=== PATIENT | male | born 1955 | race Caucasian/White ===

== ENCOUNTER → 2018-01-10 10:25 | Outpatient (CLI) | payer OTHER, SELFPAY ==
--- NOTE | 2018-01-10 13:04 | PCM.CR.HP2 ---
CR - History & Physical - General Arrival date:: 01/10/18 Arrival time:: 13:06 Date of Referral:: 12/30/17 Date of CR Evaluation:: 01/10/18 Referring Physician: Dr. Jarvis Richardson-Cardiology [facility] Primary Diagnosis: AVR 11/12/2017 - History of Present Cardiac Event Onset Date: Enter Onset Date of cardiac illnesses in Comment field below Heart valve replacement or repair:: Yes - 11/12/2017 Type of Symptoms:: Shortness of breath over time and some ankle swelling. Were there any complications?: none - Medications Home Medications: Ambulatory Orders Medication Instructions Recorded Aspirin [Aspirin, Baby] 81 mg PO DAILY@0800 01/10/18 Ergocalciferol [Vitamin D] 50,000 unit PO Q7D 01/10/18 Lisinopril [Zestril] 5 mg PO 01/10/18 Metoprolol Tartrate [Lopressor 25 mg PO BID 01/10/18 (Beta Mukul)] Simvastatin [Zocor] 20 mg PO QHS 01/10/18 - Allergies Allergies/Adverse Reactions: Allergies No Known Drug Allergies Allergy (Verified 01/10/18 13:18) Other - Sleep Disorder Evaluation Hx of Sleep Apnea: Yes Do you snore loudly (louder than talking or can be heard through closed doors)?: Yes - uses CPAP machine nightly adjustable generally runs around 4cm H2O History of Hypertension (for STOP score): Yes Advanced Directives - Advanced Directives Power of Small Business Director: Yes Living Will: Yes Advance Directives Information Provided: No Advance Directives on File: No DNR Order?:: No - MOLST See MOLST form: No Past Medical History - Past Medical Illness Medical History: Past Medical History (Last Updated 01/10/18 @ 13:12 by Sergio Roger, BRICKMASON SUPERVISOR, EDGE BANDER HAND, BS) Aortic stenosis with bicuspid valve Q23.0, Q23.1 Benign neoplasm of colon, unspecified D12.6 Essential hypertension I10 Obesity, unspecified E66.9 Other and unspecified hyperlipidemia E78.5 Peripheral neuropathy G62.9 Personal history of colonic polyps Z86.010 Sleep apnea, unspecified G47.30 Vitamin D deficiency, unspecified E55.9 - Past Surgical History Surgical History: cataract, - - colonoscopy w/or w/o brush spec, excis tendon sheath lesn hand/finger, intial inguinal hernia repair, right meniscus repair, right foot surgery, septoplasy. - Family History Summary Family History: Family History (Last Updated 01/10/18 @ 13:20 by Sergio Roger, BRICKMASON SUPERVISOR, EDGE BANDER HAND, BS) Other father had valve replacement surgery mother had hypertension Social History - Smoking History Smoking Status: Never smoker Hx Tobacco Use: No Hx Smoking Exposure: No - Alcohol Use Alcohol Usage: No - Substance Abuse Hx Substance Use: No - Occupation Occupation (List type of work in comments):: Employed Hours worked per day:: 8 Returned to work on:: 11/29/17 - slowly progressed back to work starting working from home. - Hobbies, Recreation, Social Activities Recreational Activities: I am able to engage in most, but not all activities - except for heavy lifting Social Environment - Status Marital Status: - Current Living Arrangements Living Environment:: Spouse - Children How many children do you have?: 3 Do any of your children live nearby?: Yes - 2 in [facility] - Safety Do you feel safe in your surroundings?: Yes - Assistance Do you need any assistance at home?: none Review of Systems - Review of Systems Hints: Right click = Denies (Slash). Left click = Reports (Coden) Review of Present Symptoms: Reports: Shortness of Breath with Exertion - sometimes but not frequent, Appetite - Normal - not having familiar cravings, some foods dont taste as well., Sleep - Normal - more difficulty falling asleep or staying asleep at night even with CPAP. Denies: Shortness of Breath at Rest, Wound Healing, Dizziness/Lightheadedness, Fatigue, Appetite - Special Diet - Pain Is Patient Pain Free?: No Pain Location: none Pain Level: 0/10 Risk Factor Assessment - Chief Complaint Chief Complaint: Patient presents to cardiac reahbilitation today following recent AVR surgical procedure at the [facility] Main [place] in November 2017. - Vital Signs Temperature: 98.7 F Respiratory Rate: 16 Pulse Ox: 95 Blood Pressure: 118/68 Nailbeds:: pink - Pulse Pulse Rate: 60 Pulse Rhythm: Regular - Hypertension How long have you been treated?: plus 10 years Blood Pressure Sitting - Left Arm: 118/68 - Blood Cholesterol/Lipids Total Cholesterol (mg/dL) Goal = less than 200 mg/dL: 152 HDL Cholesterol (mg/dL) Goal = less than 40 mg/dL: 49 LDL Cholesterol (mg/dL) Goal = less than 70 mg/dL: 90 Triglycerides (mg/dL) Goal = less than 150 mg/dL: 66 - Diabetes Nutrition Referral for Diabetes: No - Obesity Height: 6 ft Weight:: 295 lb Weight in Pounds: 295.0 lbs Body Mass Index (BMI): 40.0 Nutritional Referral for Obesity: Yes - Physical Inactivity Physical Inactivity: Recreational activity - walking 45 min per day 6 days per week in the mornings - Risk Stratification Risk Guidelines: Lowest Risk: Risk Factor for Smoking, Risk Factor for Dyslipidemia, Risk Factor for Diabetes, Risk Factor for Hypertension, Risk Factor for Sedentary Lifestyle, Risk Factor for Depression, Highest Risk: Risk Factor for Obesity - For Smoking Smoking Risk Guidelines: Smoking Low Risk: None or quit greater than 6 months ago. Smoking Moderate Risk: Smoker or quit 6 months or less ago. Smoking High Risk: Smoker - For Dyslipidemia Dyslipidemia Risk Guidelines: Low Risk: Moderate Risk: High Risk: 15-25% fat 25.1-29% fat >/= 30% fat. <7% sat fat 7-9% sat fat >9% sat fat. <150 mg chol 150-299 mg chol >/= 300 mg chol. LDL <100 LDL 100-129 LDL >/= 130. Chol/HDL ratio <5.0 Chol/HDL ratio 5.0-6.0 Chol/HDL ratio >6.0. Triglycerides <100 Triglycerides 100-149 Triglycerides >/= 150 - For Diabetes Mellitus Diabetes Risk Guidelines: Diabetes Low Risk: HgA1c <6.5% and/or FBG <120. Diabetes Moderate Risk: HgA1c 6.6-7.9% and/or FBG 120-180. Diabetes High Risk: HgA1c >/= 8% and/or FBG >180 - For Obesity/Overweight Obesity/Overweight Risk Guidelines: Obesity Low Risk: BMI <25.0. Obesity Moderate Risk: BMI 25-29.9. Obesity High Risk: BMI >/= 30.0 - For Hypertension Hypertension Risk Guidelines: Hypertension Low Risk: Systolic <120 and Diastolic <80. Hypertension Moderate Risk: Systolic 120-139 and Diastolic 80-89. Hypertension High Risk: Systolic >/= 140 and Diastolic >/= 90 - For Sedentary Lifestyle Sedentary Lifestyle Risk Guidelines: Sedentary Lifestyle Low Risk: >/= 1,500 kcal/week. Sedentary Lifestyle Moderate Risk: 700-1,499 kcal/week. Sedentary Lifestyle High Risk: < 700 kcal/week - For Depression Depression Risk Guidelines: Depression Low Risk: Not clinically depressed. Depression Moderate Risk: Mildly depressed. Depression High Risk: Clinically depressed - Family History Family History: Family History (Last Updated 01/10/18 @ 13:20 by Sergio Roger, BRICKMASON SUPERVISOR, EDGE BANDER HAND, BS) Other father had valve replacement surgery mother had hypertension Motivation - Motivation to Participate On a scale of 1 to 10, how prepared are you to commit to attending program?: 9 What do you see as barriers to successfully being able to complete the program?: scheduling around woprk meetings What do you see as the benefits of succesfully completing the program? In other words, what do you hope to get out of participating in the program?: increased fitness and education Are there issues you are dealing with that will interfere with completing the program?: none Do you have a spouse or signficant other, family or friends who will help support you to complete the program?: yes
--- NOTE | 2018-01-10 13:14 | CR.ITP_ITS ---
General Information - General Information Admitting Diagnosis: Aortic stenosis, AVR done 11/12/2017 - Education/Goals Barriers to Learning: Vision Impairment Individual Counseling: Initial Assessment: High Blood Pressure, Overweight/ Obesity, Hypertension Cardiac Rehabilitation Goals: 1. Maintain the individual as the primary focus of care. 2. To improve the patient's quality of life. 3. Identification of cardiac risk factors and provide cardiac risk factor management. 4. Enhance the psychosocial status of the patient. 5. Reconditioning enough to allow the patient to resume customary activities. 6. Control symptoms of cardiac disease Scale for measuring improvement of personal goals: Enter appropriate number in Comments. 2 = Unchanged. 3 = Slightly Better. 4 = Moderate Improvement. 5 = Met my Goal Personal Goals: Initial Assessment: Improve energy level, Improve knowledge of cardiac disease, Improve muscle strength and endurance, Improve diet and eating habits (eat healthier), Control risk factors (learn risk factor modification) Exercise - Initial Assessment - Visit Date of Eval: 01/10/18 - Stages of Change Stages of Change:: Action - Exercise Prescription Mode:: Treadmill, Rower, Airdyne, NuStep Angina with exercise?: No Target Heart Rate:: 119-127 - Hypertension Do any of the following apply?: Yes Resting Blood Pressure:: 108/62 - Intervention Home Exercise/Activity Goal:: Moderate Exercise 30 min/day x 5 days/wk - Education Goals:: Warm-up, RPE ROOSEVELT Scale, S/S, Safe Exercise, Self-Monitoring Nutrition - Initial Assessment - Program Goals Nutrition Program Goals: LDL <70. Total Cholesterol <200. HDL >45. Triglycerides <150. HgbA1C <7%. BMI <25 - Visit Date of Assessment:: 01/10/18 - Stages of Change Stages of Change:: Action - Diabetes Diabetes:: No Do you monitor your blood sugar at home?: No - Weight Management Height: 6 ft Weight:: 295 lb - Intervention Referral to dietitian:: Yes Will attend diet classes:: Yes - Structure weight loss. - Education Gave educational materials for:: Healthy eating Tobacco - Initial Assessment - Program Goals Tobacco Program Goals: Complete smoking cessation. Attend education classes. 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 Using a valid screening tool, maximizes coping skills. Positive support system - Stages of Change Stages of Change:: Action - Psychosocial Test Tool Used:: HANDS Depression Questionnaire - Intervention PS - Interventions: Yes Attend Stress Management Classes, No Referral to Mental Health, No Referral to [facility] Case Management, No Referral to Physician, No Uses Stress Management Skills - Education Gave educational materials for:: Coping techniques, Signs & symptoms of depression, Stress management, Relaxation techniques - Patient/Program Goal Preventative Medication(s):: Aspirin, ANN inhibitor, Clopidogrel, Beta lisa, Statin/lipid - Assistive Devices Assistive Devices:: None Fall Risk Assessed:: Yes Patient Health Questionnaire Initial Assessment 1. Little interest or pleasure in doing things: Not at all 2. Feeling down, depressed, or hopeless: Not at all 3. Trouble falling or staying asleep, or sleeping too much: Several days 4. Feeling tired or having little energy: Several days 5. Poor appetite or overeating: Several days 6. Feeling bad about yourself -- or that you are a failure or have let yourself or your family down: Not at all 7. Trouble concentrating on things, such as reading the newspaper or watching television: Not at all 8. Moving or speaking so slowly that other people could have noticed. Or the opposite - being so fidgety or restless that you have been moving around a lot more than usual: Not at all 9. Thoughts that you would be better off , or of hurting yourself in some way: Not at all How difficult have these problems made it for you to do your work, take care of things at home, or get along with other people?: Not difficult at all Total Score: 3 ELVIN-Q SV Test - Statements CAD is a disease of the arteries in the heart: False Examples of risk factors for heart disease: True Angina is chest pain or discomfort: True The benefits of resistance training include: True Eating more meat and dairy products: False Anti-platelet medications such as aspirin are important: True The only effective way to manage stress: False An exercise warm-up slowly increases heart rate: True Prepared, processed foods usually have high sodium: True Depression is common after a heart attack: True The statin medications lower cholesterol: True To control blood pressure, lower the amount of sodium: True If someone gets chest discomfort during walking: False Transfats are partially hydrogenated vegetable oils: I Don't Know Sleep apnea that is not treated increases the risk: False To control cholesterol, one should become a vegetarian: False Someone knows if he/she is exercising at the right level: True Diabetes cannot be prevented with exercise & health eating: False Stress is a large risk for heart attack: True A diet that can help lower blood pressure is rich in: True - Total Score Total Correct Responses: 19 Self-Efficacy Initial Assessment We would like to know how confident you are in doing certain activities. Please select your confidence level for:: Select your confidence level for the following using the scale 1-10 where 1 is not at all confident and 10 is totally confident. Your score is the average of all 6 responses. Fatigue: How confident are you that you can keep the fatigue caused by your disease from interfering with the things you want to do? Select Number: 10 Physical Discomfort or Pain: How confident are you that you can keep the physical discomfort or pain of your disease from interfering with the things you want to do? Select Number: 10 Emotional Distress: How confident are you that you can keep the emotional distress caused by your disease from interfering with the things you want to do? Select Number: 10 Other Symptoms or Health Problems: How confident are you that you can keep other symptoms or health problems from interfering with the things you want to do? Select Number: 9 Different Tasks and Activities: How confident are you that you can do the different tasks and activities needed to manage your health condition so as to reduce your need to see a doctor? Select Number: 9 Medication: How confident are you that you can do things other than just taking medication to reduce how much your illness affects your everyday life? Select Number: 8 Total Score:: 9 Nutrition Survey - Nutrition Survey Instructions Scoring Instructions: Scoring is as follows: Yes = 1 points. No = 0 point. Patient score that is >/=12 is considered to be at potential nutritional risk and could benefit from a referral to a registered dietitian. - Nutrition Survey Initial Have you lost >10 lbs over the past 2 months without trying?: No Are you following a special diet at home for diabetes, low fat, or low salt?: No Are you interested in meeting with a dietitian for help understanding your diet? : Yes Do you eat less than 3 meals a day?: No Do you eat fatty meats (mosley, sausage, ribs, etc), fried foods, desserts, large amounts of salad dressings, margarine, butter, or cheese most days?: No Do you have food allergies? [Enter types in comment field]: No Do you eat in restaurants more than 3 times a week?: Yes Do you season food with salt, seasoning salt, or garlic salt?: Yes Do you used canned, boxed, frozen meals, or soups, seasoning packets?: No Total Score:: 3
--- NOTE | 2018-01-10 13:14 | CR.HP_ITS ---
CR - History & Physical - General Arrival date:: 01/10/18 Arrival time:: 13:06 Date of Referral:: 12/30/17 Date of CR Evaluation:: 01/10/18 Referring Physician: Dr. Jarvis Richardson-Cardiology [facility] Primary Diagnosis: AVR 11/12/2017 - History of Present Cardiac Event Onset Date: Enter Onset Date of cardiac illnesses in Comment field below Heart valve replacement or repair:: Yes - 11/12/2017 Type of Symptoms:: Shortness of breath over time and some ankle swelling. Were there any complications?: none - Medications Home Medications: Ambulatory Orders Medication Instructions Recorded Aspirin [Aspirin, Baby] 81 mg PO DAILY@0800 01/10/18 Ergocalciferol [Vitamin D] 50,000 unit PO Q7D 01/10/18 Lisinopril [Zestril] 5 mg PO 01/10/18 Metoprolol Tartrate [Lopressor 25 mg PO BID 01/10/18 (Beta Mukul)] Simvastatin [Zocor] 20 mg PO QHS 01/10/18 - Allergies Allergies/Adverse Reactions: Allergies No Known Drug Allergies Allergy (Verified 01/10/18 13:18) Other - Sleep Disorder Evaluation Hx of Sleep Apnea: Yes Do you snore loudly (louder than talking or can be heard through closed doors)? : Yes - uses CPAP machine nightly adjustable generally runs around 4cm H2O History of Hypertension (for STOP score): Yes Advanced Directives - Advanced Directives Power of Director Of Aviation: Yes Living Will: Yes Advance Directives Information Provided: No Advance Directives on File: No DNR Order?:: No - MOLST See MOLST form: No Past Medical History - Past Medical Illness Medical History: Past Medical History (Last Updated 01/10/18 @ 13:12 by Sergio Roger, HYDRO SPRAYER OPERATOR, MACHINE JOINER CEMENTER, BS) Aortic stenosis with bicuspid valve Q23.0, Q23.1 Benign neoplasm of colon, unspecified D12.6 Essential hypertension I10 Obesity, unspecified E66.9 Other and unspecified hyperlipidemia E78.5 Peripheral neuropathy G62.9 Personal history of colonic polyps Z86.010 Sleep apnea, unspecified G47.30 Vitamin D deficiency, unspecified E55.9 - Past Surgical History Surgical History: cataract, - - colonoscopy w/or w/o brush spec, excis tendon sheath lesn hand/finger, intial inguinal hernia repair, right meniscus repair, right foot surgery, septoplasy. - Family History Summary Family History: Family History (Last Updated 01/10/18 @ 13:20 by Sergio Roger, HYDRO SPRAYER OPERATOR, MACHINE JOINER CEMENTER, BS) Other father had valve replacement surgery mother had hypertension Social History - Smoking History Smoking Status: Never smoker Hx Tobacco Use: No Hx Smoking Exposure: No - Alcohol Use Alcohol Usage: No - Substance Abuse Hx Substance Use: No - Occupation Occupation (List type of work in comments):: Employed Hours worked per day:: 8 Returned to work on:: 11/29/17 - slowly progressed back to work starting working from home. - Hobbies, Recreation, Social Activities Recreational Activities: I am able to engage in most, but not all activities - except for heavy lifting Social Environment - Status Marital Status: - Current Living Arrangements Living Environment:: Spouse - Children How many children do you have?: 3 Do any of your children live nearby?: Yes - 2 in [facility] - Safety Do you feel safe in your surroundings?: Yes - Assistance Do you need any assistance at home?: none Review of Systems - Review of Systems Hints: Right click = Denies (Slash). Left click = Reports ([place]) Review of Present Symptoms: Reports: Shortness of Breath with Exertion - sometimes but not frequent, Appetite - Normal - not having familiar cravings, some foods dont taste as well., Sleep - Normal - more difficulty falling asleep or staying asleep at night even with CPAP. Denies: Shortness of Breath at Rest , Wound Healing, Dizziness/Lightheadedness, Fatigue, Appetite - Special Diet - Pain Is Patient Pain Free?: No Pain Location: none Pain Level: 0/10 Risk Factor Assessment - Chief Complaint Chief Complaint: Patient presents to cardiac reahbilitation today following recent AVR surgical procedure at the [facility] Main [place] in November 2017. - Vital Signs Temperature: 98.7 F Respiratory Rate: 16 Pulse Ox: 95 Blood Pressure: 118/68 Nailbeds:: pink - Pulse Pulse Rate: 60 Pulse Rhythm: Regular - Hypertension How long have you been treated?: plus 10 years Blood Pressure Sitting - Left Arm: 118/68 - Blood Cholesterol/Lipids Total Cholesterol (mg/dL) Goal = less than 200 mg/dL: 152 HDL Cholesterol (mg/dL) Goal = less than 40 mg/dL: 49 LDL Cholesterol (mg/dL) Goal = less than 70 mg/dL: 90 Triglycerides (mg/dL) Goal = less than 150 mg/dL: 66 - Diabetes Nutrition Referral for Diabetes: No - Obesity Height: 6 ft Weight:: 295 lb Weight in Pounds: 295.0 lbs Body Mass Index (BMI): 40.0 Nutritional Referral for Obesity: Yes - Physical Inactivity Physical Inactivity: Recreational activity - walking 45 min per day 6 days per week in the mornings - Risk Stratification Risk Guidelines: Lowest Risk: Risk Factor for Smoking, Risk Factor for Dyslipidemia, Risk Factor for Diabetes, Risk Factor for Hypertension, Risk Factor for Sedentary Lifestyle, Risk Factor for Depression, Highest Risk: Risk Factor for Obesity - For Smoking Smoking Risk Guidelines: Smoking Low Risk: None or quit greater than 6 months ago. Smoking Moderate Risk: Smoker or quit 6 months or less ago. Smoking High Risk: Smoker - For Dyslipidemia Dyslipidemia Risk Guidelines: Low Risk: Moderate Risk: High Risk: 15-25% fat 25.1-29% fat >/= 30% fat. <7% sat fat 7-9% sat fat >9% sat fat. <150 mg chol 150-299 mg chol >/= 300 mg chol. LDL <100 LDL 100-129 LDL >/= 130. Chol/HDL ratio <5.0 Chol/HDL ratio 5.0-6.0 Chol/HDL ratio >6.0. Triglycerides <100 Triglycerides 100-149 Triglycerides >/= 150 - For Diabetes Mellitus Diabetes Risk Guidelines: Diabetes Low Risk: HgA1c <6.5% and/or FBG <120. Diabetes Moderate Risk: HgA1c 6.6-7.9% and/or FBG 120-180. Diabetes High Risk: HgA1c >/= 8% and/or FBG >180 - For Obesity/Overweight Obesity/Overweight Risk Guidelines: Obesity Low Risk: BMI <25.0. Obesity Moderate Risk: BMI 25-29.9. Obesity High Risk: BMI >/= 30.0 - For Hypertension Hypertension Risk Guidelines: Hypertension Low Risk: Systolic <120 and Diastolic <80. Hypertension Moderate Risk: Systolic 120-139 and Diastolic 80-89. Hypertension High Risk: Systolic >/= 140 and Diastolic >/= 90 - For Sedentary Lifestyle Sedentary Lifestyle Risk Guidelines: Sedentary Lifestyle Low Risk: >/= 1 ,500 kcal/week. Sedentary Lifestyle Moderate Risk: 700-1,499 kcal/week. Sedentary Lifestyle High Risk: < 700 kcal/week - For Depression Depression Risk Guidelines: Depression Low Risk: Not clinically depressed. Depression Moderate Risk: Mildly depressed. Depression High Risk: Clinically depressed - Family History Family History: Family History (Last Updated 01/10/18 @ 13:20 by Sergio Roger, HYDRO SPRAYER OPERATOR, MACHINE JOINER CEMENTER, BS) Other father had valve replacement surgery mother had hypertension Motivation - Motivation to Participate On a scale of 1 to 10, how prepared are you to commit to attending program?: 9 What do you see as barriers to successfully being able to complete the program? : scheduling around woprk meetings What do you see as the benefits of succesfully completing the program? In other words, what do you hope to get out of participating in the program?: increased fitness and education Are there issues you are dealing with that will interfere with completing the program?: none Do you have a spouse or signficant other, family or friends who will help support you to complete the program?: yes
[2018-01-10 13:31] VITALS: BP 118/68; PULSE 60; RESP 16; TEMP 37.1; O2SAT 95; BMI 40.0
[2018-01-10 14:19] VITALS: BP 108/62
== END ==
DX: I35.0 Nonrheumatic aortic (valve) stenosis (principal); Z95.2 Presence of prosthetic heart valve

== ENCOUNTER 2018-02-07 08:00 | Outpatient (RCR) | payer OTHER, SELFPAY ==
[2018-02-02 13:28] VITALS: BP 128/86; BP 152/90
--- NOTE | 2018-02-02 13:29 | CR.ITP_ITS ---
Exercise - 30-day Assessment - Visit Date of Eval: 02/02/18 Session #:: 8 - Stages of Change Stages of Change:: Action - Exercise Prescription Mode:: Treadmill, Rower, Airdyne, NuStep Frequency (x/week): 3 Duration:: 30 METs - Progression: 0.5-1 MET as tolerated: 5 Target Heart Rate:: 127-135 - Hypertension Resting Blood Pressure:: 128/86 Peak Exercise Blood Pressure:: 152/90 Medication Changes:: No - Intervention Home Exercise/Activity Goal:: Moderate Exercise 30 min/day x 5 days/wk - Education Goals:: Warm-up, RPE ROOSEVELT Scale, S/S, Safe Exercise, Self-Monitoring - Exercise Program Goals Exercise Program Goals: Aerobic Activity >30 min Nutrition - Initial Assessment - Program Goals Nutrition Program Goals: LDL <70. Total Cholesterol <200. HDL >45. Triglycerides <150. HgbA1C <7%. BMI <25 - Diabetes Do you monitor your blood sugar at home?: No Nutrition - 30-Day Assessment - Program Goals Nutrition Program Goals: LDL <70. Total Cholesterol <200. HDL >45. Triglycerides <150. HgbA1C <7%. BMI <25 - Visit Date of Eval: 02/02/18 - Stages of Change Stages of Change:: Action - Lipids Has the patient seen the dietitian?: No - Diabetes Diabetes:: No - Weight Management Weight:: 292 lb - down 3 pounds - Intervention Referral to dietitian:: No Referral to Diabetic Clinic:: No Will attend diet classes:: Yes - Education Attended class for:: Healthy eating Tobacco - Initial Assessment - Program Goals Tobacco Program Goals: Complete smoking cessation. Attend education classes. 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 Attend education classes. Improve Knowledge Test score - Stage of Change Stages of Change:: Action - Learning Barriers Learning Barriers: Participates in education - Family Support Do you have family support?: Yes - Tobacco Use Tobacco Use: Non-smoker Do you use smokeless tobacco?: No - Intervention Smoking Cessation Referral:: No Individual Education/Counseling:: No Education Schedule Given:: Yes - Education Attended class for:: Coronary artery disease, Risk factors, Sexuality, Medical compliance, Cardiac A&P, Angina signs & symptoms Psychosocial - Initial Assess - Target Goals Target Goals: Assess presence or absence of depression. Using a valid screening tool, maximizes coping skills. Positive support system - Psychosocial Test Tool Used:: HANDS Depression Questionnaire - Assistive Devices Fall Risk Assessed:: Yes Psychosocial - 30-Day Assess - Target Goals Target Goals: Assess presence or absence of depression. Using a valid screening tool, maximizes coping skills. Positive support system - Stages of Change Stages of Change:: Action - Psychosocial Test Tool Used:: HANDS Depression Questionnaire - Intervention PS - Interventions: Yes Attend Stress Management Classes, No Referral to Mental Health, No Referral to [facility] Case Management, No Referral to Physician, No Uses Stress Management Skills - Education Attended classes for:: Coping techniques, Signs & symptoms of depression, Stress management, Relaxation techniques - Patient/Program Goal Preventative Medication(s):: Aspirin, Clopidogrel, Beta lisa, Statin/lipid - Assistive Devices Assistive Devices:: None Fall Risk Assessed:: Yes Patient Health Questionnaire 30-Day Re-eval Assessment 1. Little interest or pleasure in doing things: Not at all 2. Feeling down, depressed, or hopeless: Not at all 3. Trouble falling or staying asleep, or sleeping too much: Several days 4. Feeling tired or having little energy: Several days 5. Poor appetite or overeating: Several days 6. Feeling bad about yourself -- or that you are a failure or have let yourself or your family down: Not at all 7. Trouble concentrating on things, such as reading the newspaper or watching television: Not at all 8. Moving or speaking so slowly that other people could have noticed. Or the opposite - being so fidgety or restless that you have been moving around a lot more than usual: Not at all 9. Thoughts that you would be better off , or of hurting yourself in some way: Not at all How difficult have these problems made it for you to do your work, take care of things at home, or get along with other people?: Not difficult at all Total Score: 3 Self-Efficacy 30-Day Re-eval Assessment We would like to know how confident you are in doing certain activities. Please select your confidence level for:: Select your confidence level for the following using the scale 1-10 where 1 is not at all confident and 10 is totally confident. Your score is the average of all 6 responses. Fatigue: How confident are you that you can keep the fatigue caused by your disease from interfering with the things you want to do? Select Number: 10 Physical Discomfort or Pain: How confident are you that you can keep the physical discomfort or pain of your disease from interfering with the things you want to do? Select Number: 10 Emotional Distress: How confident are you that you can keep the emotional distress caused by your disease from interfering with the things you want to do? Select Number: 10 Other Symptoms or Health Problems: How confident are you that you can keep other symptoms or health problems from interfering with the things you want to do? Select Number: 10 Different Tasks and Activities: How confident are you that you can do the different tasks and activities needed to manage your health condition so as to reduce your need to see a doctor? Select Number: 10 Medication: How confident are you that you can do things other than just taking medication to reduce how much your illness affects your everyday life? Select Number: 10 Total Score:: 10
== END 2018-02-08 23:59 ==
LOC: CR 08:00
DX: Z95.2 Presence of prosthetic heart valve (principal)
CPT/HCPCS: 93798

== ENCOUNTER 2018-03-11 08:00 | Outpatient (RCR) | payer OTHER, SELFPAY ==
[2018-02-09 01:15] VITALS: BP 128/86; BP 152/90
--- NOTE | 2018-03-04 15:10 | PCM.CR.ITP ---
General Information - General Information Admitting Diagnosis: AVR - Education/Goals Cardiac Rehabilitation Goals: 1. Maintain the individual as the primary focus of care. 2. To improve the patient's quality of life. 3. Identification of cardiac risk factors and provide cardiac risk factor management. 4. Enhance the psychosocial status of the patient. 5. Reconditioning enough to allow the patient to resume customary activities. 6. Control symptoms of cardiac disease Scale for measuring improvement of personal goals: Enter appropriate number in Comments. 2 = Unchanged. 3 = Slightly Better. 4 = Moderate Improvement. 5 = Met my Goal Exercise - 60-Day Assessment - Visit Date of Eval: 03/04/18 Session #:: 17 - Stages of Change Stages of Change:: Action - Exercise Prescription Mode:: Rower, Airdyne, NuStep Frequency (x/week): 3 Duration:: 30 METs: 6.5 Target Heart Rate:: 127-135 Max HR 133 - Hypertension Resting Blood Pressure:: 122/84 Peak Exercise Blood Pressure:: 132/84 - Intervention Home Exercise/Activity Goal:: Sitting Time <3 hrs/day - Education Goals:: Warm-up, RPE ROOSEVELT Scale, S/S, Safe Exercise, Self-Monitoring - Exercise Program Goals Exercise Program Goals: Aerobic Activity >30 min, B/P <130/80 Nutrition - Initial Assessment - Program Goals Nutrition Program Goals: LDL <70. Total Cholesterol <200. HDL >45. Triglycerides <150. HgbA1C <7%. BMI <25 - Diabetes Do you monitor your blood sugar at home?: No Nutrition - 60-Day Assessment - Program Goals Nutrition Program Goals: LDL <70. Total Cholesterol <200. HDL >45. Triglycerides <150. HgbA1C <7%. BMI <25 - Visit Date of Eval: 03/04/18 - Stages of Change Stages of Change:: Action - Lipids Has the patient seen the dietitian?: No - Diabetes Diabetes:: No - Weight Management Weight:: 132.903 kg - Intervention Referral to dietitian:: No Referral to Diabetic Clinic:: No Will attend diet classes:: Yes - Education Attended class for:: Signs & symptoms of hypoglycemia, Signs & symptoms of hyperglycemia, Relate diabetes to coronary artery disease, Healthy eating Tobacco - Initial Assessment - Program Goals Tobacco Program Goals: Complete smoking cessation. Attend education classes. 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 Attend education classes. Improve Knowledge Test score - Stage of Change Stages of Change:: Action - Learning Barriers Learning Barriers: Participates in education - Family Support Do you have family support?: Yes - Tobacco Use Tobacco Use: Non-smoker Do you use smokeless tobacco?: No - Intervention Smoking Cessation Referral:: No Individual Education/Counseling:: No Education Schedule Given:: Yes - Education Attended class for:: Tobacco triggers, Coronary artery disease, Risk factors, Sexuality, Medical compliance, Cardiac A&P, Angina signs & symptoms Psychosocial - 60-Day Assess - Target Goals Target Goals: Assess presence or absence of depression. Using a valid screening tool, maximizes coping skills. Positive support system - Stages of Change Stages of Change:: Action - Psychosocial Test Tool Used:: HANDS Depression Questionnaire - Intervention PS - Interventions: Yes Attend Stress Management Classes, Yes Uses Stress Management Skills, No Referral to Mental Health, No Referral to [facility] Case Management, No Referral to Physician - Education Attended classes for:: Coping techniques, Signs & symptoms of depression, Stress management, Relaxation techniques - Assistive Devices Assistive Devices:: None Fall Risk Assessed:: Yes Patient Health Questionnaire 60-Day Re-eval Assessment 1. Little interest or pleasure in doing things: Not at all 2. Feeling down, depressed, or hopeless: Not at all 3. Trouble falling or staying asleep, or sleeping too much: Several days 4. Feeling tired or having little energy: Several days 5. Poor appetite or overeating: Several days 6. Feeling bad about yourself -- or that you are a failure or have let yourself or your family down: Not at all 7. Trouble concentrating on things, such as reading the newspaper or watching television: Not at all 8. Moving or speaking so slowly that other people could have noticed. Or the opposite - being so fidgety or restless that you have been moving around a lot more than usual: Not at all 9. Thoughts that you would be better off , or of hurting yourself in some way: Not at all How difficult have these problems made it for you to do your work, take care of things at home, or get along with other people?: Not difficult at all Total Score: 3 Self-Efficacy 60-Day Re-eval Assessment We would like to know how confident you are in doing certain activities. Please select your confidence level for:: Select your confidence level for the following using the scale 1-10 where 1 is not at all confident and 10 is totally confident. Your score is the average of all 6 responses. Fatigue: How confident are you that you can keep the fatigue caused by your disease from interfering with the things you want to do? Select Number: 10 Physical Discomfort or Pain: How confident are you that you can keep the physical discomfort or pain of your disease from interfering with the things you want to do? Select Number: 10 Emotional Distress: How confident are you that you can keep the emotional distress caused by your disease from interfering with the things you want to do? Select Number: 10 Other Symptoms or Health Problems: How confident are you that you can keep other symptoms or health problems from interfering with the things you want to do? Select Number: 10 Different Tasks and Activities: How confident are you that you can do the different tasks and activities needed to manage your health condition so as to reduce your need to see a doctor? Select Number: 10 Medication: How confident are you that you can do things other than just taking medication to reduce how much your illness affects your everyday life? Select Number: 10 Total Score:: 10
[2018-03-04 15:14] VITALS: BP 122/84; BP 132/84
== END 2018-03-11 23:59 ==
LOC: CR 08:00
DX: Z95.2 Presence of prosthetic heart valve (principal)
CPT/HCPCS: 93798

== ENCOUNTER 2018-03-11 09:05 | Outpatient (RCR) | payer OTHER, SELFPAY | END 2018-03-11 23:59 | disposition home or self-care (01) | LOC: NS 09:05 | DX: E66.9 Obesity, unspecified (principal); Z68.41 Body mass index [BMI] 40.0-44.9, adult; I10 Essential (primary) hypertension; G47.30 Sleep apnea, unspecified; D12.6 Benign neoplasm of colon, unspecified; Z71.3 Dietary counseling and surveillance | CPT/HCPCS: 97802 ==

== ENCOUNTER 2018-04-01 09:29 | Outpatient (RCR) | payer OTHER, SELFPAY | END 2018-04-10 23:59 | disposition home or self-care (01) | LOC: NS 09:29 | DX: E66.9 Obesity, unspecified (principal); Z68.41 Body mass index [BMI] 40.0-44.9, adult; I10 Essential (primary) hypertension; G47.30 Sleep apnea, unspecified; D12.6 Benign neoplasm of colon, unspecified; Z71.3 Dietary counseling and surveillance | CPT/HCPCS: 97803 ==

== ENCOUNTER 2018-04-08 08:00 | Outpatient (RCR) | payer OTHER, SELFPAY ==
[2018-03-12 01:19] VITALS: BP 122/84; BP 132/84
--- NOTE | 2018-04-06 13:30 | PCM.CR.ITP ---
Exercise - Final/Discharge - Visit Date of Eval: 04/06/18 - Scheduled to graduate 04/18/18 - Stages of Change Stages of Change:: Action - Exercise Prescription Mode:: Treadmill, Rower, Airdyne, NuStep Frequency (x/week): 3 Duration:: 35 METs: 7.5 Target Heart Rate:: 127-135 - Hypertension Do any of the following apply?: Medication Resting Blood Pressure:: 118/68 Peak Exercise Blood Pressure:: 154/84 - Intervention Home Exercise/Activity Goal:: Moderate Exercise 30 min/day x 5 days/wk - Education Goal Progress: Goal Met - Exercise Program Goals Exercise Program Goals: Aerobic Activity >30 min Nutrition - Initial Assessment - Program Goals Nutrition Program Goals: LDL <70. Total Cholesterol <200. HDL >45. Triglycerides <150. HgbA1C <7%. BMI <25 - Diabetes Do you monitor your blood sugar at home?: No Nutrition - Final Assessment - Program Goals Nutrition Program Goals: LDL <70. Total Cholesterol <200. HDL >45. Triglycerides <150. HgbA1C <7%. BMI <25 - Visit Date of Eval: 04/06/18 - Stages of Change Stages of Change:: Action - Diabetes Diabetes:: No - Weight Management Height: 6 ft Weight:: 289 lb 8 oz Body Fat %:: 40 - Intervention Referral to dietitian:: No Referral to Diabetic Clinic:: No Will attend diet classes:: Yes - Education Education Goal Reached?: Yes Tobacco - Initial Assessment - Program Goals Tobacco Program Goals: Complete smoking cessation. Attend education classes. 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 Attend education classes. Improve Knowledge Test score - Stage of Change Stages of Change:: Action - Family Support Do you have family support?: Yes - Tobacco Use Tobacco Use: Non-smoker Do you use smokeless tobacco?: No - Intervention Smoking Cessation Referral:: No Education Schedule Given:: Yes - Education Education Goal Reached?: Yes Psychosocial - Initial Assess - Target Goals Target Goals: Assess presence or absence of depression. Using a valid screening tool, maximizes coping skills. Positive support system - Psychosocial Test Tool Used:: HANDS Depression Questionnaire - Assistive Devices Fall Risk Assessed:: Yes Psychosocial - Final Assessmen - Target Goals Target Goals: Assess presence or absence of depression. Using a valid screening tool, maximizes coping skills. Positive support system - Stages of Change Stages of Change:: Action - Psychosocial Test Tool Used:: HANDS Depression Questionnaire - Intervention PS - Interventions: Yes Attend Stress Management Classes, Yes Uses Stress Management Skills, No Referral to Mental Health, No Referral to [facility] Case Management, No Referral to Physician - Education Education Goal Reached?: Yes - Patient/Program Goal Preventative Medication(s):: Aspirin, Clopidogrel, Statin/lipid - Assistive Devices Assistive Devices:: None Fall Risk Assessed:: Yes Patient Health Questionnaire Discharge Assessment 1. Little interest or pleasure in doing things: Not at all 2. Feeling down, depressed, or hopeless: Not at all 3. Trouble falling or staying asleep, or sleeping too much: Not at all 4. Feeling tired or having little energy: Not at all 5. Poor appetite or overeating: Not at all 6. Feeling bad about yourself -- or that you are a failure or have let yourself or your family down: Not at all 7. Trouble concentrating on things, such as reading the newspaper or watching television: Not at all 8. Moving or speaking so slowly that other people could have noticed. Or the opposite - being so fidgety or restless that you have been moving around a lot more than usual: Not at all 9. Thoughts that you would be better off , or of hurting yourself in some way: Not at all How difficult have these problems made it for you to do your work, take care of things at home, or get along with other people?: Not difficult at all Total Score: 0 ELVIN-Q SV Test - Statements CAD is a disease of the arteries in the heart: False Examples of risk factors for heart disease: True Angina is chest pain or discomfort: True The benefits of resistance training include: True Eating more meat and dairy products: False Anti-platelet medications such as aspirin are important: True The only effective way to manage stress: False An exercise warm-up slowly increases heart rate: True Prepared, processed foods usually have high sodium: True Depression is common after a heart attack: True The statin medications lower cholesterol: True To control blood pressure, lower the amount of sodium: True If someone gets chest discomfort during walking: False Transfats are partially hydrogenated vegetable oils: True Sleep apnea that is not treated increases the risk: False To control cholesterol, one should become a vegetarian: False Someone knows if he/she is exercising at the right level: True Diabetes cannot be prevented with exercise & health eating: False Stress is a large risk for heart attack: True A diet that can help lower blood pressure is rich in: True - Total Score Total Correct Responses: 20 Self-Efficacy Discharge Assessment We would like to know how confident you are in doing certain activities. Please select your confidence level for:: Select your confidence level for the following using the scale 1-10 where 1 is not at all confident and 10 is totally confident. Your score is the average of all 6 responses. Fatigue: How confident are you that you can keep the fatigue caused by your disease from interfering with the things you want to do? Select Number: 10 Physical Discomfort or Pain: How confident are you that you can keep the physical discomfort or pain of your disease from interfering with the things you want to do? Select Number: 10 Emotional Distress: How confident are you that you can keep the emotional distress caused by your disease from interfering with the things you want to do? Select Number: 10 Other Symptoms or Health Problems: How confident are you that you can keep other symptoms or health problems from interfering with the things you want to do? Select Number: 10 Different Tasks and Activities: How confident are you that you can do the different tasks and activities needed to manage your health condition so as to reduce your need to see a doctor? Select Number: 10 Medication: How confident are you that you can do things other than just taking medication to reduce how much your illness affects your everyday life? Select Number: 10 Total Score:: 10 Nutrition Survey - Nutrition Survey Instructions Scoring Instructions: Scoring is as follows: Yes = 1 points. No = 0 point. Patient score that is >/=12 is considered to be at potential nutritional risk and could benefit from a referral to a registered dietitian. - Nutrition Survey Discharge Have you lost >10 lbs over the past 2 months without trying?: No Are you following a special diet at home for diabetes, low fat, or low salt?: No Are you interested in meeting with a dietitian for help understanding your diet?: No Do you eat less than 3 meals a day?: No Do you eat fatty meats (mosley, sausage, ribs, etc), fried foods, desserts, large amounts of salad dressings, margarine, butter, or cheese most days?: No - have cut back tremendously on fatty meats Do you have food allergies? [Enter types in comment field]: No Do you eat in restaurants more than 3 times a week?: No Do you season food with salt, seasoning salt, or garlic salt?: No Do you used canned, boxed, frozen meals, or soups, seasoning packets?: No Total Score:: 0
[2018-04-06 13:45] VITALS: BP 118/68; BP 154/84
== END 2018-04-10 23:59 ==
LOC: CR 08:00
DX: Z95.2 Presence of prosthetic heart valve (principal)
CPT/HCPCS: 93798

== ENCOUNTER 2018-04-15 08:00 | Outpatient (RCR) | payer OTHER, SELFPAY ==
[2018-04-11 01:00] VITALS: BP 118/68; BP 154/84
== END 2018-05-11 23:59 ==
LOC: CR 08:00
DX: Z95.2 Presence of prosthetic heart valve (principal)
CPT/HCPCS: 93798

== ENCOUNTER 2018-05-03 14:30 | Outpatient (RCR) | payer OTHER, SELFPAY | END 2018-05-11 23:59 | disposition home or self-care (01) | LOC: NS 14:30 | DX: E66.9 Obesity, unspecified (principal); I10 Essential (primary) hypertension; G47.30 Sleep apnea, unspecified; D12.6 Benign neoplasm of colon, unspecified; Z71.3 Dietary counseling and surveillance | CPT/HCPCS: 97803 ==

== ENCOUNTER → 2018-05-20 20:16 | Outpatient (CLI) | payer OTHER, SELFPAY | PROVIDERS: Visit Provider Family Medicine | DX: G47.30 Sleep apnea, unspecified (principal) | CPT/HCPCS: 95811 ==

== ENCOUNTER 2018-06-07 15:00 | Outpatient (RCR) | payer OTHER, SELFPAY | END 2018-06-10 23:59 | LOC: NS 15:00 | DX: E66.9 Obesity, unspecified (principal); I10 Essential (primary) hypertension; G47.30 Sleep apnea, unspecified; D12.6 Benign neoplasm of colon, unspecified; Z68.41 Body mass index [BMI] 40.0-44.9, adult; Z71.3 Dietary counseling and surveillance | CPT/HCPCS: 97803 ==

== ENCOUNTER 2018-06-21 14:53 | Outpatient (RCR) | payer OTHER, SELFPAY | END 2018-07-11 23:59 | LOC: NS 14:53 | DX: E66.9 Obesity, unspecified (principal); I10 Essential (primary) hypertension; G47.30 Sleep apnea, unspecified; D12.6 Benign neoplasm of colon, unspecified; Z68.41 Body mass index [BMI] 40.0-44.9, adult; Z71.3 Dietary counseling and surveillance | CPT/HCPCS: 97803 ==

== ENCOUNTER 2018-08-08 15:00 | Outpatient (RCR) | payer OTHER, SELFPAY | END 2018-08-11 23:59 | LOC: NS 15:00 | DX: E66.9 Obesity, unspecified (principal); I10 Essential (primary) hypertension; G47.30 Sleep apnea, unspecified; D12.6 Benign neoplasm of colon, unspecified; Z68.41 Body mass index [BMI] 40.0-44.9, adult; Z71.3 Dietary counseling and surveillance | CPT/HCPCS: 97803 ==

== ENCOUNTER 2018-08-24 15:33 | Outpatient (RCR) | payer OTHER, SELFPAY | END 2018-09-08 23:59 | LOC: NS 15:33 | DX: E66.9 Obesity, unspecified (principal); I10 Essential (primary) hypertension; G47.30 Sleep apnea, unspecified; D12.6 Benign neoplasm of colon, unspecified; Z68.41 Body mass index [BMI] 40.0-44.9, adult; Z71.3 Dietary counseling and surveillance | CPT/HCPCS: 97803 ==

== ENCOUNTER 2018-10-05 15:00 | Outpatient (RCR) | payer OTHER, SELFPAY | END 2018-10-05 23:59 | disposition home or self-care (01) | LOC: NS 15:00 | DX: E66.9 Obesity, unspecified (principal); I10 Essential (primary) hypertension; G47.30 Sleep apnea, unspecified; D12.6 Benign neoplasm of colon, unspecified; Z68.41 Body mass index [BMI] 40.0-44.9, adult; Z71.3 Dietary counseling and surveillance | CPT/HCPCS: 97803 ==

== ENCOUNTER → 2022-09-22 | Outpatient (CLI) | payer MEDICARE, BC, SELFPAY ==
--- NOTE | 2022-09-22 10:50 | EKG12_ITS ---
Test Reason : PREOP Blood Pressure : / mmHG Vent. Rate : 052 BPM Atrial Rate : 052 BPM P-R Int : 176 ms QRS Dur : 098 ms QT Int : 420 ms P-R-T Axes : 051 -14 060 degrees QTc Int : 390 ms Sinus bradycardia Otherwise normal ECG Confirmed by KATHY BECERRA, CORWIN ([id number]), primer expeditor and drier HE KUHN ([id number]) on 09/23/2022 9:52:08 AM Referred By: Jackson West Confirmed By:CORWIN CHAVEZ MD
--- NOTE | 2022-09-22 11:00 | RAD_ITS ---
STUDY: X-RAY CHEST REASON FOR EXAM: Male, 66 years old. Preop for hip surgery TECHNIQUE: PA and lateral views of the chest. COMPARISON: None. FINDINGS: The lungs are clear and expanded. There is no demonstrated pleural abnormality. Sternal cerclage wires and vascular clips are present from a prior sternotomy and coronary artery bypass graft procedure (CABG). Normal mediastinum and sylvester. Normal visualized pulmonary arteries. Normal visualized aortic arch and descending thoracic aorta. Normal visualized thoracic spine. Normal visualized ribs, clavicles, and shoulders. There is no demonstrated abnormality of the visualized soft tissue structures of the upper abdomen. RAD/Chest PA and Lateral IMPRESSION: No acute pulmonary process Electronically Signed: Mario Mchugh MD at 11:23 EDT ,
== END | disposition home or self-care (01) ==
PROVIDERS: PCP Family Medicine; Referring Provider Orthopaedic Surgery; Visit Provider Orthopaedic Surgery
DX: Z01.811 Encounter for preprocedural respiratory examination (principal); Z01.810 Encounter for preprocedural cardiovascular examination
CPT/HCPCS: 71046; 93005

== ENCOUNTER → 2022-10-27 | Outpatient (CLI) | payer MEDICARE, BC, SELFPAY ==
[2022-10-27 09:56] LABS: Absolute Lymphocyte Count 1.43 X10^3/uL (0.83-4.51); Basophil# 0.03 X10^3/uL; Basophil% 0.6 % (0-1); Eosinophils% 3.7 % (0-5); Hematocrit 46.7 % (40-54); Hemoglobin 15.1 g/dL (13.0-16.5); Lymphocyte # 1.43 X10^3/ul (0.83-4.51); Lymphocyte % 26.2 % (19-41); Mean Corp Hgb Conc 32.3 g/dL (32-36); Mean Corpuscular Hgb 30.9 pg (27.0-32.0); Mean Corpuscular Volume 95.5 fL (80-94); Monocyte# 0.73 X10^3/uL; Monocyte% 13.4 % (0-10); NRBC Flagged by Analyzer 0 % (0-5); Neutrophil # 3.04 X10^3/uL (2.7-7.7); Neutrophil % 55.7 % (47-70); Platelet Count 192 K/mm3 (150-450); RBC Distribution Width CV 13.5 % (11.6-14.6); Red Blood Count 4.89 M/mm3 (4.6-6.2); White Blood Count 5.5 K/mm3 (4.4-11.0)
[2022-10-27 10:12] LABS: Anion Gap 3 (5-15); BUN 15 mg/dL (7-18); Calcium,Total 9.7 mg/dL (8.5-10.1); Chloride 108 mmol/L (98-107); Creatinine, Serum 1.07 mg/dL (0.70-1.30); EST Glomerular Filtration Rate 74 mL/min (>60); Est Glom Filt Rate - Afr Amer 89 mL/min (>60); Glucose 108 mg/dL (74-106); Potassium 4.2 mmol/L (3.5-5.1); Sodium Level 138 mmol/L (136-145)
[2022-10-28 10:44] LABS: Hemoglobin A1c 5.5 % (3.8-5.6)
== END | disposition home or self-care (01) ==
LOC: LAB 08:33
PROVIDERS: PCP Family Medicine; Referring Provider Physician Assistant; Visit Provider Physician Assistant
DX: Z01.818 Encounter for other preprocedural examination (principal); I10 Essential (primary) hypertension; R73.09 Other abnormal glucose; Z01.812 Encounter for preprocedural laboratory examination
CPT/HCPCS: 36415; 80048; 83036; 85025

== ENCOUNTER → 2022-11-13 | Outpatient (CLI) | payer MEDICARE, BC, SELFPAY ==
--- NOTE | 2022-11-13 08:19 | KNEE_PTH ---
PATIENT: BONNY RODRIGUEZ Jr. LOC: [facility] U#:[id number] AGE/SX: 66/M ROOM: RE11/13/[address]: Dr. Jackson West MD : 1955 BED: DIS: 11/13/2022 SPEC #: [id number] RECD: 11/13/22 15:11 STATUS: RADHA REQ #: [id number] RAZ: 11/13/22 08:[address]: Jackson West DEPT: SURGICAL PATHOLOGY RECD BY: Melissa Benitez ENTERED: 11/16/22 10:00 SP TYPE: TOTAL KNEE OTHR DR: Dr. Niles Noel MD [facility] Tissues: Knee, NOS Procedures: Decalcification bone/plaque Surgery Specimen Level IV HEADER OPERATION: Left total knee replacement PRE-OP DIAGNOSIS: Osteoarthritis grade 4 left knee TISSUE SUBMITTED: Left knee bone and tissue MICROSCOPIC DIAGNOSIS Bone and soft tissue, left knee, total knee replacement/resection: Pieces of bone with degenerative osteoarthritic changes. Fibroadipose tissue, fibroconnective tissue and reactive synovial tissue. KACI:nitesh 11/19/2022 MICROSCOPIC DESCRIPTION Slides are reviewed. GROSS DESCRIPTION Received is one container designated bone and soft tissue left knee. The specimen consists of multiple fragments of velázquez-yellow bone measuring in aggregate 11.0 x 11.0 x 3.0 cm. Also in the specimen container are multiple fragments of yellow-white soft tissue measuring in aggregate 7.0 x 4.5 x 2.0 cm. A number of bony fragments contain articular surfaces consistent with tibial plateau and femoral condyle and displaying prominent osteophyte formation, eburnation and bone erosion. Knot Cutter sections are submitted in two cassettes as follows: 1 - soft tissue, 2 - bone after decalcification. / KACI:nitesh TC:5 CPT: 55847, 09297
== END | disposition home or self-care (01) ==
LOC: LABSPEC 15:49
PROVIDERS: PCP Family Medicine; Referring Provider Orthopaedic Surgery; Visit Provider Orthopaedic Surgery
DX: M17.12 Unilateral primary osteoarthritis, left knee (principal); Z96.652 Presence of left artificial knee joint
CPT/HCPCS: 88305; 88311

== ENCOUNTER → 2023-02-11 | Outpatient (CLI) | payer MEDICARE, BC, SELFPAY ==
[2023-02-11 10:12] LABS: Absolute Lymphocyte Count 1.24 X10^3/uL (0.83-4.51); Absolute Neutrophil Count 2.6 X10^3/uL (2.0-7.7); Basophil# 0.03 X10^3/uL; Basophil% 0.7 % (0-1); Eosinophil# 0.14 X10^3/uL; Eosinophils% 3.1 % (0-5); Hematocrit 43.4 % (40-54); Hemoglobin 14.5 g/dL (13.0-16.5); Lymphocyte # 1.24 X10^3/ul (0.83-4.51); Lymphocyte % 27.9 % (19-41); Mean Corp Hgb Conc 33.4 g/dL (32-36); Mean Corpuscular Hgb 31.1 pg (27.0-32.0); Mean Corpuscular Volume 93.1 fL (80-94); Mean Platelet Vol. 10.1 fl (6.2-12.0); Monocyte# 0.41 X10^3/uL; Monocyte% 9.2 % (0-10); NRBC Flagged by Analyzer 0 % (0-5); Neutrophil % 58.4 % (47-70); Platelet Count 189 K/mm3 (150-450); RBC Distribution Width CV 13.2 % (11.6-14.6); RBC Distribution Width SD 45.2 fl (35.1-43.9); Red Blood Count 4.66 M/mm3 (4.6-6.2); White Blood Count 4.5 K/mm3 (4.4-11.0)
== END | disposition home or self-care (01) ==
LOC: LAB 08:50
PROVIDERS: PCP Family Medicine; Referring Provider Physician Assistant; Visit Provider Physician Assistant
DX: Z01.818 Encounter for other preprocedural examination (principal)
CPT/HCPCS: 36415; 85025

== ENCOUNTER → 2023-02-19 | Outpatient (CLI) | payer MEDICARE, BC, SELFPAY ==
--- NOTE | 2023-02-19 | KNEE_PTH ---
PATIENT: BONNY RODRIGUEZ Jr. LOC: [facility] U#:[id number] AGE/SX: 67/M ROOM: RE02/19/[address]: Dr. Jackson West MD : 1955 BED: DIS: 02/19/2023 SPEC #: [id number] RECD: 02/22/23 09:00 STATUS: RADHA REJennifer #: [id number] RAZ: 02/19/23 00:[address]: Jackson West DEPT: SURGICAL PATHOLOGY RECD BY: Yfn Car ENTERED: 02/22/23 09:01 SP TYPE: TOTAL KNEE OTHR DR: Dr. 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 AM:nitesh 02/25/2023 MICROSCOPIC DESCRIPTION Slides are reviewed. GROSS DESCRIPTION Received is one container designated bone and soft tissue right knee. The specimen consists of multiple fragments of velázquez-yellow bone measuring in aggregate 15.0 x 13.0 x 2.0 cm. Also in the specimen container are multiple fragments of yellow-white soft tissue measuring in aggregate 5.0 x 4.0 x 1.0 cm. A number of bony fragments contain articular surfaces consistent with tibial plateau and femoral condyle and displaying prominent osteophyte formation, eburnation and bone erosion. Water Quality Technician sections are submitted in two cassettes as follows: 1 - soft tissue, 2 - bone after decalcification. / AM:nitesh 02/22/2023 TC:5 CPT: 51960, 29339
== END | disposition home or self-care (01) ==
LOC: LABSPEC 15:30
PROVIDERS: PCP Family Medicine; Referring Provider Orthopaedic Surgery; Visit Provider Orthopaedic Surgery
DX: M17.11 Unilateral primary osteoarthritis, right knee (principal)
CPT/HCPCS: 88305; 88311

== ENCOUNTER → 2023-03-11 | Outpatient (CLI) | payer MEDICARE, BC, SELFPAY | END | disposition home or self-care (01) | LOC: SL 10:22 | PROVIDERS: PCP Family Medicine; Visit Provider Family Medicine | DX: G47.33 Obstructive sleep apnea (adult) (pediatric) (principal) ==

== ENCOUNTER → 2024-03-27 | Outpatient (CLI) | payer OTHER, SELFPAY ==
[2024-03-27 13:12] LABS: Absolute Lymphocyte Count 1.58 X10^3/uL (0.83-4.51); Absolute Neutrophil Count 4.3 X10^3/uL (2.0-7.7); Basophil# 0.03 X10^3/uL; Basophil% 0.4 % (0-1); Eosinophil# 0.24 X10^3/uL; Eosinophils% 3.5 % (0-5); Hematocrit 44.9 % (40-54); Hemoglobin 14.9 g/dL (13.0-16.5); Lymphocyte # 1.58 X10^3/ul (0.83-4.51); Mean Corp Hgb Conc 33.2 g/dL (32-36); Mean Corpuscular Hgb 31.4 pg (27.0-32.0); Mean Corpuscular Volume 94.5 fL (80-94); Mean Platelet Vol. 10.3 fl (6.2-12.0); Monocyte# 0.76 X10^3/uL; NRBC Flagged by Analyzer 0 % (0-5); Neutrophil # 4.25 X10^3/uL (2.7-7.7); Neutrophil % 61.8 % (47-70); Platelet Count 211 K/mm3 (150-450); RBC Distribution Width CV 12.8 % (11.6-14.6); RBC Distribution Width SD 43.8 fl (35.1-43.9); Red Blood Count 4.75 M/mm3 (4.6-6.2); White Blood Count 6.9 K/mm3 (4.4-11.0)
[2024-03-27 13:35] LABS: Anion Gap 8 (5-15); BUN 16 mg/dL (7-18); BUN/Creat Ratio 13.1 RATIO (10-20); Calcium,Total 9.7 mg/dL (8.5-10.1); Chloride 107 mmol/L (98-107); Creatinine, Serum 1.22 mg/dL (0.70-1.30); EST Glomerular Filtration Rate 63 mL/min (>60); Est Glom Filt Rate - Afr Amer 76 mL/min (>60); Glucose 125 mg/dL (74-106); Sodium Level 140 mmol/L (136-145)
== END | disposition home or self-care (01) ==
LOC: LAB 11:52
PROVIDERS: PCP Family Medicine; Referring Provider Physician Assistant Surgical; Visit Provider Physician Assistant Surgical
DX: Z01.818 Encounter for other preprocedural examination (principal); Z01.810 Encounter for preprocedural cardiovascular examination; Z01.812 Encounter for preprocedural laboratory examination
CPT/HCPCS: 36415; 80048; 85025

== ENCOUNTER 2024-05-25 10:01 | Day surgery (SDC) | payer OTHER, SELFPAY ==
[2024-05-25] VITALS (11 sets, daily range): BP systolic 116–141; BP diastolic 81–88; PULSE 52–70; RESP 16; TEMP 36.1–36.8; O2SAT 92–100; BMI 42.1
[2024-05-25] MEDS: Lactated Ringers 1,000 ML 15 ML IV (10:29)
[2024-05-25] MEDS: Cefazolin 3 GM in Syringe 1 EACH IV (11:36)
[2024-05-25] MEDS: Epinephrine (1 mg/ml) 1 MG/ML VIAL (12:25)
[2024-05-25] MEDS: Bupiv/Epi 0.25% 30 ML Vial (13:21)
[2024-05-25] MEDS: Bupivacaine Mpf 0.5% 30 ML VIAL (13:21)
[2024-05-25] MEDS: Ketorolac 15 MG/ML Vial IV (13:54)
[2024-05-25] MEDS: Acetaminophen 500 MG Tablet 1000 MG PO (15:18)
[2024-05-25] MEDS: oxyCODONE 5 MG Tablet 10 MG PO (15:18)
== END 2024-05-25 16:30 | disposition home or self-care (01) ==
LOC: SDC 10:01 → AC 10:02
PROVIDERS: PCP Family Medicine; Referring Provider Student in an Organized Health Care Education/Training Program; Visit Provider Student in an Organized Health Care Education/Training Program
PROC: (CPT 29827; principal; 2024-05-25 11:45)
DX: S43.014A Anterior dislocation of right humerus, initial encounter (principal); Z68.41 Body mass index [BMI] 40.0-44.9, adult; S46.011A Strain of muscle(s) and tendon(s) of the rotator cuff of right shoulder, initial encounter; S43.431A Superior glenoid labrum lesion of right shoulder, initial encounter; Y99.0 Civilian activity done for income or pay; M25.311 Other instability, right shoulder; X58.XXXA Exposure to other specified factors, initial encounter; I25.10 Atherosclerotic heart disease of native coronary artery without angina pectoris; I10 Essential (primary) hypertension; E78.00 Pure hypercholesterolemia, unspecified; G47.30 Sleep apnea, unspecified; E66.9 Obesity, unspecified; Z79.82 Long term (current) use of aspirin; Z79.899 Other long term (current) drug therapy
CPT/HCPCS: 23410; 23430; 29806; 01630; C1713; J7120; J2405

== ENCOUNTER 2025-05-31 09:29 | Inpatient (IN) | payer MEDICARE, BC, SELFPAY ==
[2025-05-31] VITALS (14 sets, daily range): BP systolic 120–153; BP diastolic 66–80; PULSE 47–69; RESP 14–21; TEMP 36–36.8; O2SAT 93–100; BMI 43.6
[2025-05-31] MEDS: 0.9% Normal Saline (1000mL) 1,000 ML 1000 ML IV ×2 (09:59→15:18)
[2025-05-31 10:04] LABS: Hematocrit 44.4 % (40-54); Hemoglobin 14.8 g/dL (13.0-16.5); Immature Granulocytes Count 0.060 X10^3/uL (0.0-0.0); Mean Corp Hgb Conc 33.3 g/dL (32-36); Mean Corpuscular Volume 92.7 fL (80-94); Mean Platelet Vol. 10.6 fl (6.2-12.0); NRBC Flagged by Analyzer 0 % (0-5); Platelet Count 217 K/mm3 (150-450); RBC Distribution Width CV 12.7 % (11.6-14.6); RBC Distribution Width SD 43.0 fl (35.1-43.9); Red Blood Count 4.79 M/mm3 (4.6-6.2); White Blood Count 15.1 K/mm3 (4.4-11.0)
--- NOTE | 2025-05-31 10:05 | EX.ED.DYSGE1 ---
HPI History of Present Illness Chief Complaint: Abd Pain Narrative Narrative: Chief complaint and HPI: 69-year-old male with past medical history of previous valve replacement, thoracic/abdominal aneurysm, HTN, HLD presents for evaluation of right thoracic back pain. Describes the pain as sharp. Worse with inspiration. Radiates into the back. Onset of symptoms yesterday evening. Associated symptom is nausea. Denies any fever, chills, shortness of breath, chest pain, URI symptoms, abdominal pain. Review of systems: See HPI Medications: As listed on the chart Allergies: As listed on the chart PFSH: Per chart Vital signs: As listed on the chart. Reviewed. Physical exam: Gen: A&O x3, NAD Head: Normocephalic, atraumatic Eyes: No sclera icterus, conjunctiva clear, pupils equal bilaterally ENT: Moist mucous membranes Neck: Trachea midline, No JVD, no carotid bruits CV: RRR, mild nonpitting bilateral lower peripheral edema Resp: Lungs CTA BL, no w/r/c GI: Abd soft, non-distended, non-tender, no r/r/g Musc: Full ROM, no deformity, radial/DP/PT pulses +2 bilaterally, no midline spinal tenderness, no bony step-offs, mild tenderness to palpation of the paraspinal musculature of the mid thoracic spine-muscles are tense Skin: Warm, dry Neuro: Alert, oriented, grossly intact, sensation intact Psych: Cooperative, appropriate mood and affect [facility] Medical History (Updated 05/31/25 @ 12:[address] Clau Marin MD) Wears hearing aid Wears glasses Arthritis High cholesterol Non-smoker Shortness of breath on exertion CPAP (continuous positive airway pressure) dependence History of edema History of echocardiogram History of stress test Cardiology follow-up encounter Vitamin D deficiency, unspecified Personal history of colonic polyps Peripheral neuropathy Other and unspecified hyperlipidemia Obesity, unspecified Essential hypertension Benign neoplasm of colon, unspecified Aortic stenosis with bicuspid valve Home Medications ?Medication ?Instructions ?Recorded ?Last Taken ?Type aspirin 81 mg chewable tablet 162 mg PO DAILY@0800 01/10/18 05/19/24 History amlodipine 5 mg tablet 5 mg PO DAILY 05/12/24 05/25/24 History atorvastatin 20 mg tablet 20 mg PO QHS 05/12/24 05/24/24 History cholecalciferol (vitamin D3) 50 100 mcg PO DAILY 05/12/24 05/19/24 History mcg (2,000 unit) tablet (Vitamin D3) losartan 100 mg tablet 100 mg PO DAILY 05/12/24 05/25/24 History Allergy/AdvReac Type Severity Reaction Status Date / Time No Known Drug Allergies Allergy Other Verified 05/31/25 09:30 Family History Other father had valve replacement surgery mother had hypertension Surgical History History of cardiac catheterization Hx of colonoscopy Hx of total knee arthroplasty Hx of total knee arthroplasty Hx of thumb surgery History of heart surgery Hx of inguinal hernia repair Hx of foot surgery Hx of adenoidectomy Hx of tonsillectomy Social History Smoking Status: Never smoker EXAM Physical Exam Const Vital Signs: 05/31/25 09:29 05/31/25 11:15 05/31/25 13:00 Temperature 98 F Temperature Source Temporal Pulse Rate 50 L 48 L 47 L Respiratory Rate 16 14 21 H Blood Pressure 144/76 H 141/76 H 145/74 H Blood Pressure Mean 98 97 97 Pulse Ox 96 94 93 Oxygen Delivery Method Room Air Room Air Room Air MDM MDM MDM Narrative Medical decision making narrative: 69-year-old male with past medical history of previous valve replacement, thoracic/abdominal aneurysm, HTN, HLD presents for evaluation of right thoracic back pain. Describes the pain as sharp. Worse with inspiration. Radiates into the back. Onset of symptoms yesterday evening. Associated symptom is nausea. Differential diagnosis includes but is not limited to dissection, PE, ACS, myofascial spasm, pleurisy, cholelithiasis/choledocholithiasis/cholecystitis however patient not having abdominal pain. Morphine, Zofran, NS bolus ordered. Laboratory workup ordered including CTA abdomen pelvis. CBC with leukocytosis of 15.1. No anemia. Platelet count unremarkable. CMP with renal insufficiency with creatinine 1.52. Previous labs are from 2023 and patient did not have renal insufficiency at that time. Unknown if this is new or acute. No transaminitis. Hide no hyperbilirubinemia. Troponin 37. Patient not having any chest pain. Will obtain delta. BNP unremarkable. Lipase unremarkable. CTA chest, abdomen, pelvis negative for dissection. Acute cholecystitis. Perinephritic fat stranding and bladder wall thickening concerning for UTI. Will add on urine. Patient does have simple right kidney cyst. Sigmoid diverticulosis without diverticulitis. Given findings, Zosyn ordered. General surgery consulted. Coagulation panel unremarkable. UA negative for UTI. Patient was discussed with general surgery, Dr. Marin. She would like ultrasound with likely plans for OR. Recommend hospitalist for medical clearance. Hospitalist was paged which I spoke with Dr. Rojas He will see the patient. Gallbladder ultrasound was performed and pending. Repeat troponin pending. Patient will be admitted to general surgery service. EKG: Interpreted by me/EM physician: EKG shows sinus bradycardia with first-degree AV block. Nonspecific ST changes. Heart rate 46. On chart review, patient has a history of bradycardia. Impression: 1. Acute cholecystitis 2. Thoracic back pain 3. Renal insufficiency Lab Data Labs: Laboratory Results - last 24 hr 05/31/25 05/31/25 09:55 11:05 WBC 15.1 H RBC 4.79 Hgb 14.8 Hct 44.4 MCV 92.7 MCH 30.9 MCHC 33.3 RDW Std Deviation 43.0 RDW Coeff of Wei 12.7 Plt Count 217 MPV 10.6 Immature Gran % (Auto) 0.400 Neut % (Auto) 88.9 H Lymph % (Auto) 5.6 L [place] % (Auto) 4.8 Eos % (Auto) 0.1 Baso % (Auto) 0.2 Absolute Neuts (auto) 13.4 H Absolute Lymphs (auto) 0.84 Nucleated RBC % 0 PT 13.9 INR 1.1 APTT 25.8 Sodium 140 Potassium 3.8 Chloride 103 Carbon Dioxide 22.6 Anion Gap 14 BUN 24 H Creatinine 1.52 H Estim Creat Clear Calc 69.05 Est GFR (MDRD) Non-Af 50 L BUN/Creatinine Ratio 15.9 Glucose 172 H Calcium 9.6 Total Bilirubin 1.23 AST 33 ALT 39 Alkaline Phosphatase 69 Troponin T High Sens 37 H NT pro BNP II 620 Total Protein 7.6 Albumin 4.6 Globulin 3.0 Albumin/Globulin Ratio 1.6 Lipase 34 Urine Color Yellow Urine Clarity Clear Urine pH 6.0 Ur Specific [place] 1.010 Urine Protein 15 H Urine Glucose (UA) Normal Urine Ketones Negative Urine Occult Blood 10 H Urine Nitrite Negative Urine Bilirubin Negative Urine Urobilinogen Normal Ur Leukocyte Esterase Negative Urine RBC 0 SEEN Urine WBC 0 SEEN Ur Squamous Epith Cells 0 SEEN Urine Bacteria 0 SEEN Urine Mucus 0 SEEN Radiography Diagnostic Testing: Clinical Impression(s) from Imaging Studies Chest/Abdomen/Pelvis CTA 05/31/25 10:11 IMPRESSION: Unremarkable CTA of the chest abdomen and pelvis without dissection. Acute cholecystitis. Perinephric fat stranding and bladder wall thickening concerning for intact infarction. Sigmoid colon diverticulosis with no evidence of acute diverticulitis. Reading Location: [facility] Discharge Plan Triage Chief Complaint: Abd Pain ED Provider: Ben Blackwell Dx/Rx/DC Orders Prescriptions: No Action aspirin 81 MG tablet,chewable 162 mg PO DAILY@0800 losartan 100 mg tablet 100 mg PO DAILY amlodipine 5 mg tablet 5 mg PO DAILY atorvastatin 20 mg tablet 20 mg PO QHS cholecalciferol (vitamin D3) [Vitamin D3] 50 mcg (2,000 unit) tablet 100 mcg PO DAILY Primary Care Provider: Niles Noel Referrals: Niles Noel MD [Primary Care Provider, Family Practice] Print Language: Comoran
--- NOTE | 2025-05-31 10:11 | CT_ITS ---
PROCEDURE: CTA CHST, ABD, PEL W AND/OR WO 05/31/2025 REASON FOR EXAM: THORACIC PAIN, KNOWN AAA, R/O DISSECTION AND PE TECHNIQUE: Procedure Code: CTCTA.CHAP.2 Modality: CT Procedure: CTA CHST, ABD, PEL W AND/OR WO Coronal and Sagittal reconstruction series were provided. One or more dose reduction techniques were used (e.g., Automated exposure control, adjustment of the mA and/or kV according to patient size, use of iterative reconstruction technique. CONTRAST: Isovue 370 VOLUME: 100 mL RADIATION DOSE SUMMARY: CTDlvol: 20.72 mGy DLP: 1480.79 mGycm COMPARISON: None. FINDINGS: CHEST: Lines and tubes: Unremarkable. Mediastinum: Unremarkable. Heart: No cardiomegaly. Atherosclerotic calcifications of the coronary arteries. Thoracic Aorta: No aneurysm. Atherosclerotic calcifications. Lungs and Airways: L ground-glass densities in the lower lobes may represent atelectasis. Pleura: No pleural effusion or pneumothorax. Bones: Status post median sternotomy. No acute bony abnormalities. ABDOMEN AND PELVIS: Liver: A 2 cm simple cyst in the right hepatic lobe. Gallbladder: The gallbladder is distended containing multiple layering gallstones with gallbladder wall thickening and pericholecystic fat stranding consistent with acute cholecystitis. No biliary dilation. Spleen: Unremarkable. Pancreas: Unremarkable. Adrenals: Unremarkable. Kidneys: Periprosthetic fat stranding. A 4.1 cm simple cyst at the midpole of the right kidney. Additional bilateral small kidney cysts. No biliary dilation. Bladder: The bladder wall thickening. Surrounding fat stranding. Reproductive Organs: Unremarkable. Bowel: Extending is sigmoid colon diverticulosis with no evidence of acute diverticulitis. Vasculature: Infrarenal aortic ectasia measures 3.2 cm. No dissection. The celiac, superior mesenteric, inferior mesenteric, renal and iliac arteries are patent without significant stenosis. Peritoneum / Retroperitoneum: No free air or free fluid. Bones: No acute bony abnormalities. CT/CTA Chst, Abd, Pel W and/or WO IMPRESSION: Unremarkable CTA of the chest abdomen and pelvis without dissection. Acute cholecystitis. Perinephric fat stranding and bladder wall thickening concerning for intact inf arction. Sigmoid colon diverticulosis with no evidence of acute diverticulitis. Reading Location: [facility]
[2025-05-31 10:14] LABS: Prothrombin Time (Protime)PT. 13.9 SECONDS (11.7-14.9)
[2025-05-31 10:15] LABS: Partial Thromboplast Time 25.8 Seconds (24.1-36.2)
[2025-05-31 10:36] LABS: Troponin T High Sensitivity 37 ng/L (<=22)
[2025-05-31 10:39] LABS: Lipase 34 U/L (13-75); Pro- Brain NATRIURETIC PEPTIDE 620 pg/mL (<=900)
[2025-05-31 10:45] LABS: AST(SGOT) 33 U/L (<=37); Alanine Aminotransfer ALT/SGPT 39 U/L (<=46); Albumin, Serum 4.6 g/dL (3.4-4.8); Alkaline Phosphatase 69 U/L (40-129); Anion Gap 14 (5-15); BUN 24 mg/dL (4-19); BUN/Creat Ratio 15.9 RATIO (10-20); Calcium,Total 9.6 mg/dL (7.6-11.0); Carbon Dioxide 22.6 mmol/L (21.0-32.0); Chloride 103 mmol/L (98-108); Estimated Creatinine Clearance 69.05 ml/min (50-250); Globulin 3.0 g/dL (2.2-4.2); Glucose 172 mg/dL (70-99); Potassium 3.8 mmol/L (3.3-5.1)
[2025-05-31 11:14] LABS: Color, Urine Yellow (Yellow); Glucose, Dipstick Normal (Normal); Ketone-Dipstick Negative (Negative); Leukocyte Esterase-Dipstick Negative /ul (Negative); Mucous, Urine 0 SEEN /hpf (<or=2+); Nitrite-Dipstick Negative (Negative); Occult Blood-Urine 10 /ul (Negative); Protein-Dipstick 15 mg/dl (Negative); Red Blood Cells-Urine 0 SEEN /hpf (0-5); Specific Gravity, Urine 1.010 (1.002-1.030); Squamous Epithelial Cells - UA 0 SEEN /hpf (0-5); Urine Bilirubin Dipstick Negative (Negative)
--- NOTE | 2025-05-31 11:40 | US_ITS ---
PROCEDURE: GALLBLADDER 05/31/2025 REASON FOR EXAM: CT SHOWING CHOLECYSTITIS TECHNIQUE: Procedure Code: USGB Modality: US Procedure: GALLBLADDER COMPARISON: Prior CT scan of the abdomen and pelvis done earlier in the day. FINDINGS: Liver: Diffusely echogenic suggesting fatty infiltration. Hepatomegaly. The liver measures 19.9 cm. Gallbladder: The gallbladder is distended. There is evidence of a gallstone in the neck of the gallbladder. The gallbladder wall is within normal limits measuring 2.7 mm. No pericholecystic fluid is seen. Common bile duct: Normal measuring 5 mm. . Pancreas: Normal Other: Visualized portions of the right kidney are unremarkable except for 2 cysts. The larger cyst is in the lower pole and measures 4.7 cm x 3.7 cm 3.6 cm.. No right upper quadrant ascites. US/Gallbladder IMPRESSION: Fatty infiltration of the liver. Hepatomegaly. Distended gallbladder with a gallstone in the neck of the gallbladder. The gal lbladder wall is not thickened. No pericholecystic fluid is seen. Reading Location: [id number]
[2025-05-31] MEDS: Piperacil/Tazobactam 3.375 GM in 0.9% Normal Saline (50mL MB+) 50 ML IV ×2 (11:42→21:18)
--- NOTE | 2025-05-31 12:57 | PCM.HP.STD ---
HPI - General General Date of Admission: 05/31/25 HPI Narrative BONNY RODRIGUEZ, is a 69 M who presents due to abdominal pain right upper quadrant/epigastric last night starting about 8 PM last ate pulled pork at 6:30 PM. Patient states pain was improved from a 7/10 to a 3/10 however he was not able to really sleep at night and thus came to the ER. Patient white blood count 15, CTA chest abdomen pelvis showed layering gallstones and inflammation of the gallbladder consistent with acute cholecystitis. Patient denies ever having any issues with his gallbladder. Patient previously did have an aortic bicuspid valve placed in 2018 currently on aspirin only for this. [facility] Medical History Wears hearing aid Wears glasses Arthritis High cholesterol Non-smoker Shortness of breath on exertion CPAP (continuous positive airway pressure) dependence History of edema History of echocardiogram History of stress test Cardiology follow-up encounter Vitamin D deficiency, unspecified Personal history of colonic polyps Peripheral neuropathy Other and unspecified hyperlipidemia Obesity, unspecified Essential hypertension Benign neoplasm of colon, unspecified Aortic stenosis with bicuspid valve Home Medications ?Medication ?Instructions ?Recorded ?Last Taken ?Type aspirin 81 mg chewable tablet 162 mg PO DAILY@0800 01/10/18 05/19/24 History amlodipine 5 mg tablet 5 mg PO DAILY 05/12/24 05/25/24 History atorvastatin 20 mg tablet 20 mg PO QHS 05/12/24 05/24/24 History cholecalciferol (vitamin D3) 50 100 mcg PO DAILY 05/12/24 05/19/24 History mcg (2,000 unit) tablet (Vitamin D3) losartan 100 mg tablet 100 mg PO DAILY 05/12/24 05/25/24 History Allergy/AdvReac Type Severity Reaction Status Date / Time No Known Drug Allergies Allergy Other Verified 05/31/25 09:30 Family History (Updated 05/31/25 @ 13:[address] Chaitanya Rojas DO) Mother AAA (abdominal aortic aneurysm) Other father had valve replacement surgery mother had hypertension Surgical History History of cardiac catheterization Hx of colonoscopy Hx of total knee arthroplasty Hx of total knee arthroplasty Hx of thumb surgery History of heart surgery Hx of inguinal hernia repair Hx of foot surgery Hx of adenoidectomy Hx of tonsillectomy Social History Smoking Status: Never smoker Vital Signs Vital Signs Vital Signs: 05/31/25 09:29 05/31/25 11:15 Temperature 98 F Temperature Source Temporal Pulse Rate 50 L 48 L Respiratory Rate 16 14 Blood Pressure 144/76 H 141/76 H Blood Pressure Mean 98 97 Pulse Ox 96 94 Oxygen Delivery Method Room Air Room Air Weight Weight: 321 lb 13.998 oz Body Mass Index (BMI) 43.6 Physical Exam Const alert, oriented x3 and no apparent distress HEENT normocephalic and head/scalp atraumatic Resp normal respiratory effort Cardio regular rate GI soft to palpation; Negative for non-distended Palpation: Negative for tender or guarding Extremity no clubbing, cyanosis or edema Neuro CN's II-XII intact bilaterally Psych mental status grossly normal Results Lab / Micro Data 05/31/25 09:55 05/31/25 09:55 Labs: Laboratory Results - last 24 hr 05/31/25 09:55: WBC 15.1 H, RBC 4.79, Hgb 14.8, Hct 44.4, MCV 92.7, MCH 30.9, MCHC 33.3, RDW Std Deviation 43.0, RDW Coeff of Wei 12.7, Plt Count 217, MPV 10.6, Immature Gran % (Auto) 0.400, Neut % (Auto) 88.9 H, Lymph % (Auto) 5.6 L, [place] % (Auto) 4.8, Eos % (Auto) 0.1, Baso % (Auto) 0.2, Absolute Neuts (auto) 13.4 H, Absolute Lymphs (auto) 0.84, Nucleated RBC % 0, PT 13.9, INR 1.1, APTT 25.8, Sodium 140, Potassium 3.8, Chloride 103, Carbon Dioxide 22.6, Anion Gap 14, BUN 24 H, Creatinine 1.52 H, Estim Creat Clear Calc 69.05, Est GFR (MDRD) Non-Af 50 L, BUN/Creatinine Ratio 15.9, Glucose 172 H, Calcium 9.6, Total Bilirubin 1.23, AST 33, ALT 39, Alkaline Phosphatase 69, Troponin T High Sens 37 H, NT pro BNP II 620, Total Protein 7.6, Albumin 4.6, Globulin 3.0, Albumin/Globulin Ratio 1.6, Lipase 34 05/31/25 11:05: Urine Color Yellow, Urine Clarity Clear, Urine pH 6.0, Ur Specific Lewis 1.010, Urine Protein 15 H, Urine Glucose (UA) Normal, Urine Ketones Negative, Urine Occult Blood 10 H, Urine Nitrite Negative, Urine Bilirubin Negative, Urine Urobilinogen Normal, Ur Leukocyte Esterase Negative, Urine RBC 0 SEEN, Urine WBC 0 SEEN, Ur Squamous Epith Cells 0 SEEN, Urine Bacteria 0 SEEN, Urine Mucus 0 SEEN Imaging Radiology Impression Chest/Abdomen/Pelvis CTA 05/31/25 10:11 IMPRESSION: Unremarkable CTA of the chest abdomen and pelvis without dissection. Acute cholecystitis. Perinephric fat stranding and bladder wall thickening concerning for intact infarction. Sigmoid colon diverticulosis with no evidence of acute diverticulitis. Reading Location: [facility] Assessment & Plan Assessment/Plan (1) Acute cholecystitis: (2) Aortic stenosis with bicuspid valve: PLAN: Plan Patient is aware due to his aspirin he may have slightly higher risk of bleeding. Reviewed the anatomy with the patient and discussed the procedure:robotic/laparoscopic cholecystectomy with ICG with possible cholangiograms, possible open. Review risks including but not limited to bleeding, infection, hernia, bile leak, retained gallstones requiring another procedure ERCP- Endoscopic Retrograde Cholangiopancreatography, injury to another organ (bile ducts, common bile duct, small bowel, etc.) and conversion to an open procedure. All questions were answered. Clau Marin M.D. Pager: [phone] [facility] [address] [place] [address], [address] [place] [address] Office: [phone]
[2025-05-31 13:35] LABS: Troponin T High Sens 2 HR 38 ng/L (<=22)
--- NOTE | 2025-05-31 13:40 | PCM.CONS.GEN ---
Assessment & Plan Assessment/Plan (1) Acute cholecystitis: PLAN: Onset was at approximately 1999. Patient has a good performance status at baseline. Patient did have elevated troponins, however but he was not having chest pain and his back pain was related with his cholecystitis. Troponins went up slightly from 37-38. But given fact he has no chest pain, good performance status I feel the patient is medically stable to proceed with surgery. PLAN: Plan Hypertension: Continue with amlodipine and losartan when patient able to resume oral Hyperlipidemia: Resume atorvastatin when patient able to take oral. VTE prophylaxis: Defer to surgical service. Thank for the consult. The hospital service will follow along during this patient's hospitalization. Thank for the consult. The hospitalist service will follow along. Discussed with the patient's family at bedside. HPI Consult Data Date of Consult: 05/31/25 HPI Narrative Reason for Consultation: Consult requested by Dr. Marin for medical clearance HPI Narrative: BONNY RODRIGUEZ, is a 69 M who presents with back pain. Patient had right thoracic back pain that began approximately 1999 on the . It persisted and he presented today and patient underwent CT of the chest on the pelvis that showed acute cholecystitis. A troponin was also ordered at 37 that went up to 38. He denies any chest pain or any shortness of breath. He has had some chills. Patient is a very active at baseline and goes to the gym multiple times per week. He does not experience any chest pain or shortness of breath with these activities. [ ] [facility] Medical History Wears hearing aid Wears glasses Arthritis High cholesterol Non-smoker Shortness of breath on exertion CPAP (continuous positive airway pressure) dependence History of edema History of echocardiogram History of stress test Cardiology follow-up encounter Vitamin D deficiency, unspecified Personal history of colonic polyps Peripheral neuropathy Other and unspecified hyperlipidemia Obesity, unspecified Essential hypertension Benign neoplasm of colon, unspecified Aortic stenosis with bicuspid valve Home Medications ?Medication ?Instructions ?Recorded ?Last Taken ?Type aspirin 81 mg chewable tablet 162 mg PO DAILY@0800 01/10/18 05/19/24 History amlodipine 5 mg tablet 5 mg PO DAILY 05/12/24 05/25/24 History atorvastatin 20 mg tablet 20 mg PO QHS 05/12/24 05/24/24 History cholecalciferol (vitamin D3) 50 100 mcg PO DAILY 05/12/24 05/19/24 History mcg (2,000 unit) tablet (Vitamin D3) losartan 100 mg tablet 100 mg PO DAILY 05/12/24 05/25/24 History Allergy/AdvReac Type Severity Reaction Status Date / Time No Known Drug Allergies Allergy Other Verified 05/31/25 09:30 Family History (Updated 05/31/25 @ 13:[address] Chaitanya Rojas DO) Mother AAA (abdominal aortic aneurysm) Other father had valve replacement surgery mother had hypertension Surgical History History of cardiac catheterization Hx of colonoscopy Hx of total knee arthroplasty Hx of total knee arthroplasty Hx of thumb surgery History of heart surgery Hx of inguinal hernia repair Hx of foot surgery Hx of adenoidectomy Hx of tonsillectomy Social History Smoking Status: Never smoker ROS ROS Narrative All review of systems were negative except as mentioned above in the history of present illness and the other review of systems. Physical Exam Const alert and no apparent distress Constitutional Narrative: No acute distress and afebrile. Nontoxic. HEENT normocephalic and head/scalp atraumatic Resp normal respiratory effort, no retractions, no use of accessory muscles and clear to auscultation bilaterally Cardio regular rate, regular rhythm, S1 normal heart sound and S2 normal heart sound GI normal to inspection, nondistended, normoactive bowel sounds, soft to palpation, non-tender and non-distended GI Narrative: Negative Alanis sign. No rebound. Extremity normal to inspection Lab / Micro Data Attestation: I reviewed the patient's lab results. 05/31/25 09:55 05/31/25 09:55 Labs: Laboratory Results - last 24 hr 05/31/25 09:55: WBC 15.1 H, RBC 4.79, Hgb 14.8, Hct 44.4, MCV 92.7, MCH 30.9, MCHC 33.3, RDW Std Deviation 43.0, RDW Coeff of Wei 12.7, Plt Count 217, MPV 10.6, Immature Gran % (Auto) 0.400, Neut % (Auto) 88.9 H, Lymph % (Auto) 5.6 L, [place] % (Auto) 4.8, Eos % (Auto) 0.1, Baso % (Auto) 0.2, Absolute Neuts (auto) 13.4 H, Absolute Lymphs (auto) 0.84, Nucleated RBC % 0, PT 13.9, INR 1.1, APTT 25.8, Sodium 140, Potassium 3.8, Chloride 103, Carbon Dioxide 22.6, Anion Gap 14, BUN 24 H, Creatinine 1.52 H, Estim Creat Clear Calc 69.05, Est GFR (MDRD) Non-Af 50 L, BUN/Creatinine Ratio 15.9, Glucose 172 H, Calcium 9.6, Total Bilirubin 1.23, AST 33, ALT 39, Alkaline Phosphatase 69, Troponin T High Sens 37 H, NT pro BNP II 620, Total Protein 7.6, Albumin 4.6, Globulin 3.0, Albumin/Globulin Ratio 1.6, Lipase 34 05/31/25 11:05: Urine Color Yellow, Urine Clarity Clear, Urine pH 6.0, Ur Specific [place] 1.010, Urine Protein 15 H, Urine Glucose (UA) Normal, Urine Ketones Negative, Urine Occult Blood 10 H, Urine Nitrite Negative, Urine Bilirubin Negative, Urine Urobilinogen Normal, Ur Leukocyte Esterase Negative, Urine RBC 0 SEEN, Urine WBC 0 SEEN, Ur Squamous Epith Cells 0 SEEN, Urine Bacteria 0 SEEN, Urine Mucus 0 SEEN 05/31/25 12:30: Troponin T Hi Sens 2 Hr 38 H EKG Initial EKG: Attestation: I personally reviewed and interpreted this EKG as follows: Prior EKG tracings: available for review EKG Rhythm Intrepretation: Sinus Bradycardia Imaging Radiology Impression Chest/Abdomen/Pelvis CTA 05/31/25 10:11 IMPRESSION: Unremarkable CTA of the chest abdomen and pelvis without dissection. Acute cholecystitis. Perinephric fat stranding and bladder wall thickening concerning for intact infarction. Sigmoid colon diverticulosis with no evidence of acute diverticulitis. Reading Location: [facility] Gallbladder Ultrasound 05/31/25 11:40 IMPRESSION: Fatty infiltration of the liver. Hepatomegaly. Distended gallbladder with a gallstone in the neck of the gallbladder. The gallbladder wall is not thickened. No pericholecystic fluid is seen. Reading Location: [id number] Charges/Coding Visit Charges Inpatient E&M: 29570 Init Hosp L2
--- NOTE | 2025-05-31 14:18 | PCM.PRE.AN2 ---
ASA Classification* ASA Classification ASA Classification: 3 Assessment & Plan Anesthesia* Anesthesia Assessment Anesthesia Assessment: Discussed sedation and/or anesthesia options, risks, benefits, and alternatives with patient/parents/legal guardian/POA. Questions invited. The patient/parents/legal guardian/POA seems to understand and agrees to proceed with anesthesia plan. Reviewed the physical assessment, medical history, allergy history and patient home medications list prior to surgery/procedure/anesthetic and documented any changes. Performed airway and anesthesia risk assessments. Anesthesia Type Anesthesia Type: General Anesthesia Focused Assessment* Temperature: 98.0 F Pulse Rate: 48 Blood Pressure: 127/66 Respiratory Rate: 16 Pulse Ox: 98 Airway Assessment Mouth opens: >3 cm Mallampati Score: II Labs Anesthesia Preop lab: CBC WBC, (4.4-11.0) 15.1 K/mm3 H Today, 09:55 RBC, (4.6-6.2) 4.79 M/mm3 Today, 09:55 Hgb, (13.0-16.5) 14.8 g/dL Today, 09:55 Hct, (40-54) 44.4 % Today, 09:55 Plt Count, (150-450) 217 K/mm3 Today, 09:55 CHEMISTRY Potassium, (3.3-5.1) 3.8 mmol/L Today, 09:55 Sodium, (133-145) 140 mmol/L Today, 09:55 BUN, (4-19) 24 mg/dL H Today, 09:55 Creatinine, (0.70-1.20) 1.52 mg/dL H Today, 09:55 Glucose, (70-99) 172 mg/dL H Today, 09:55 COAG PT, (11.7-14.9) 13.9 SECONDS Today, 09:55 Pre-Assessment Diagnosis/Proposed Procedure Planned Operative Procedure(s): Laparoscopic cholecystectomy. 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 When Was Last Pacemaker Check QUESTION #4 FULL TEXT: You/Your Family Experience fever (hyperthermia) with Anesthesia Last Oral Intake Last Oral intake: Last Oral Intake NPO since Meds taken in AM with sips of water? Meds patient instructed to take am of surgery PONV PONV - screen printing cloth spreader: PONV - screen printing cloth spreader Female HX of Motion Sickness HX of N/V After Surgery Non-Smoker Duration of Surgery greater than 60 minutes Number of Risk Factors PONV Score Height & Weight Height & Weight: Anesthesia: Height & Weight Height 6 ft 05/31/25 14:14 Weight: 146 kg 05/31/25 14:14 Body Mass Index (BMI) 43.6 05/31/25 14:14 Respiratory Assessment Respiratory Assessment - screen printing cloth spreader: Respiratory Tract Infection Hx - screen printing cloth spreader Hx Respiratory Tract Infection No 05/12/24 10:32 STOP Sleep Apnea STOP Sleep Apnea - screen printing cloth spreader: STOP Sleep Apnea - screen printing cloth spreader Hx Hypertension Yes: CONTROLLED WITH MED 05/12/24 10:32 Hx Sleep Apnea UNKNOWN 05/31/25 14:14 CPAP Yes 05/25/24 13:46 BIPAP No 05/12/24 10:32 Do you snore loudly (louder than talking or can be heard Do you often feel tired/ fatigued/ sleepy during daytime? Has anyone observed you stop breathing during sleep? STOP Results QUESTION #5 FULL TEXT : Do you snore loudly (louder than talking or can be heard through closed doors)? 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 Specify any problems Hx of Preganancy in last 3 Months Nurse Filling Out Transfusion & Questions: Date: Time: Patient unable to answer at this time (ie. confused, unrespo /Reproduction History /Reproductive History - screen printing cloth spreader: /Reproductive Hx- screen printing cloth spreader Hx Now Gestational Age (in weeks): EDC: Hx Hx Para Hx Section SAB No 05/12/24 10:32 Does the father of the baby or his family experience fever w Father of the baby Malignant Hypertension history comment PFSH Medical History Wears hearing aid Wears glasses Arthritis High cholesterol Non-smoker Shortness of breath on exertion CPAP (continuous positive airway pressure) dependence History of edema History of echocardiogram History of stress test Cardiology follow-up encounter Vitamin D deficiency, unspecified Personal history of colonic polyps Peripheral neuropathy Other and unspecified hyperlipidemia Obesity, unspecified Essential hypertension Benign neoplasm of colon, unspecified Aortic stenosis with bicuspid valve Home Medications ?Medication ?Instructions ?Recorded ?Last Taken ?Type aspirin 81 mg chewable tablet 162 mg PO DAILY@0800 01/10/18 05/19/24 History amlodipine 5 mg tablet 5 mg PO DAILY 05/12/24 05/25/24 History atorvastatin 20 mg tablet 20 mg PO QHS 05/12/24 05/24/24 History cholecalciferol (vitamin D3) 50 100 mcg PO DAILY 05/12/24 05/19/24 History mcg (2,000 unit) tablet (Vitamin D3) losartan 100 mg tablet 100 mg PO DAILY 05/12/24 05/25/24 History Allergy/AdvReac Type Severity Reaction Status Date / Time No Known Drug Allergies Allergy Other Verified 05/31/25 09:30 Family History Mother AAA (abdominal aortic aneurysm) Other father had valve replacement surgery mother had hypertension Surgical History History of cardiac catheterization Hx of colonoscopy Hx of total knee arthroplasty Hx of total knee arthroplasty Hx of thumb surgery History of heart surgery Hx of inguinal hernia repair Hx of foot surgery Hx of adenoidectomy Hx of tonsillectomy Social History Smoking Status: Never smoker Review of Systems (Anesthesia) ROS Narrative System reviewed and no additional complaints, except as documented.
[2025-05-31] MEDS: INDOCYANINE GREEN 3.75 MG in Syringe 1.5 ML 999 MG IV (14:34)
[2025-05-31] MEDS: 0.9% Normal Saline (1000mL) 1,000 ML 15 ML IV (14:37)
[2025-05-31] MEDS: fentaNYL 100 MCG/2 ML Ampul IV (15:25)
[2025-05-31] MEDS: Lidocaine 1% (5 ml sdv) 5 ML Vial 10 ML IV (15:26)
--- NOTE | 2025-05-31 16:20 | GALL_PTH ---
PATIENT: BONNY RODRIGUEZ Jr. LOC: [facility]3 U#:[id number] AGE/SX: 69/M ROOM: HI319 RE05/31/[address]: Dr. Clau Marin MD : [id number] BED: 1 DIS: 06/01/2025 SPEC #: [id number] RECD: 06/01/25 07:14 STATUS: RADHA LYONJenniefr #: [id number] RAZ: 05/31/25 16:[address]: Clau Marin DEPT: SURGICAL PATHOLOGY RECD BY: Donato Whitaker ENTERED: 06/01/25 10:03 SP TYPE: PHILIPPE BARONE DR: DO Dr. Niles Garcia MD Tissues: A - Gallbladder, NOS Procedures: Surgery Specimen Level III HEADER OPERATION: Robotic cholecystectomy PRE-OP DIAGNOSIS: Acute cholecystitis, aortic stenosis with bicuspid valve TISSUE SUBMITTED: A- Gallbladder MICROSCOPIC DIAGNOSIS A. Gallbladder, robotic cholecystectomy: * Acute and chronic cholecystitis * Cholelithiasis MICROSCOPIC DESCRIPTION Slides are reviewed. GROSS DESCRIPTION A. Received in formalin labeled with the patient's name and date of . Designated as gallbladder is a 10.9 x 3.8 x 2.4 cm velázquez-purple to yellow, somewhat edematous and focally disrupted gallbladder with attached possibly obstructed (by choleliths) and shaggy cystic duct (inked black, shaved). A lymph node is not present. Opening reveals minimal, sludgelike bile and innumerable choleliths, ranging <0.1 cm to 0.4 cm cm. The mucosa is red to dark green-brown and granular with slight, irregular folds (body) and a maximum wall thickness of 0.4 cm. Cholesterolosis is not present. Crane Service Technician sections are submitted in 2 cassettes as follows: A1: Margin (shaggy and disrupted), irregular mucosal foldingA2: Cross-sections CT 06/01/2025 CPT:08432
[2025-05-31] MEDS: Bupiv/Epi 0.25% 30 ML Vial (17:05)
--- NOTE | 2025-05-31 17:19 | PCM.POST.ANE ---
Anesthesia: Postop Eval I Current Vital Signs Temperature: 96.8 F Pulse Rate: 69 Blood Pressure: 153/76 Respiratory Rate: 18 Pulse Ox: 100 Oxygen Delivery Method: Simple Mask Oxygen Flow Rate (L/min): 8 Assessment Airway patent: Yes Spontaneous unlabored respirations: Yes Mental status: Awake nausea: No Vomiting: No Anesthesia Complication: No Fluid Hydration Crystalloid volume administer (ml): 1,000 Total IV fluid infused: 1,000 Progress Note Anesthesia document: Postop Eval 1 completed: Yes
--- NOTE | 2025-05-31 17:34 | POSTOPAN2_ITS ---
Anesthesia Postop Eval I Sum Postop Eval Completion status Anesthesia document: Postop Eval 1 completed: Yes Anesthesia Postop Eval I Summary Anesthesia Postop Eval I Summary: Anesthesia Postop Eval I: Assessment Summary Airway patent Yes 05/31/25 17:21 APPAREL [email or web address].[email or web address] Spontaneous unlabored Yes 05/31/25 17:21 APPAREL DESIGNER.JAMAL respirations Mental status Awake 05/31/25 17:21 APPAREL DESIGNER.JCLI nausea No 05/31/25 17:21 APPAREL DESIGNER.JCLI Vomiting No 05/31/25 17:21 APPAREL DESIGNER.JAMAL Anesthesia Postop Eval I: Fluid Summary Crystalloid volume administer 1,000 05/31/25 17:21 APPAREL DESIGNER.JCLI (ml) Colloids volume administered ( ml) Blood Product volume administered (ml) Total IV fluid infused 1,000 05/31/25 17:21 APPAREL DESIGNER.JAMAL Anesthesia Postop Eval I: Summary Notes Anesthesia Complication No 05/31/25 17:21 APPAREL DESIGNER.JAMAL Anesthesia Complication Comment: Post-operative progress note Anesthesia: Postop Eval II Evaluation Mental status: Awake Pain Level: 2 nausea: No Vomiting: No
--- NOTE | 2025-05-31 17:34 | PCM.POSTANE2 ---
Anesthesia Postop Eval I Sum Postop Eval Completion status Anesthesia document: Postop Eval 1 completed: Yes Anesthesia Postop Eval I Summary Anesthesia Postop Eval I Summary: Anesthesia Postop Eval I: Assessment Summary Airway patent Yes 05/31/25 17:21 POSTAL [email or web address] Spontaneous unlabored Yes 05/31/25 17:21 POSTAL [email or web address].JAMAL respirations Mental status Awake 05/31/25 17:21 POSTAL [email or web address].JCLI nausea No 05/31/25 17:21 POSTAL CARRIER.JCLI Vomiting No 05/31/25 17:21 POSTAL CARRIER.JAMAL Anesthesia Postop Eval I: Fluid Summary Crystalloid volume administer 1,000 05/31/25 17:21 POSTAL CARRIER.JCLI (ml) Colloids volume administered ( ml) Blood Product volume administered (ml) Total IV fluid infused 1,000 05/31/25 17:21 POSTAL CARRIER.JAMAL Anesthesia Postop Eval I: Summary Notes Anesthesia Complication No 05/31/25 17:21 POSTAL CARRIER.JAMAL Anesthesia Complication Comment: Post-operative progress note Anesthesia: Postop Eval II Evaluation Mental status: Awake Pain Level: 2 nausea: No Vomiting: No
[2025-05-31] MEDS: 0.9% Normal Saline (1000mL) 1,000 ML 100 ML IV (18:08)
--- OUTSIDE RECORDS SUMMARY | 2025-05-31 19:05 | XMS RPT_ITS | CCD ---
Author Organization [facility] Care Team Providers Care Manager Cleaning Name Role Phone Ritesh Hua MD Unavailable Jairo BECERRA, Jarvis Unavailable Deshawn Noel MD Primary Care Provider Jairo BECERRA, Jarvis Unavailable Deshawn Noel MD Primary Care Provider [place] MDugopal Unavailable Deshawn Noel MD Primary Care Provider Dr. Deshawn Noel Primary Care Provider Dr. Amanuel Holder Attending Provider [phone] Dr. Jackson Mera Referring Provider JACKSON MERA DR Attending Unavailable JACKSON MERA DR Primary Care Unavailable JACKSON MERA DR Admitting Unavailable DESHAWN NOEL Consulting Unavailable JACKSON MERA DR Attending Unavailable JACKSON MERA DR Primary Care Unavailable JACKSON MERA DR Admitting Unavailable PROVIDER, UNKNOWN Consulting Unavailable Jairo BECERRA, Jarvis Unavailable [phone] Deshawn Noel MD Primary Care Provider [phone] Provider, None Primary Care Unavailable Mario Ferreira Admitting Unavailable Mario Ferreira Attending Unavailable Malena Luo Admitting Unavailable Malena Luo Attending Unavailable Provider, None Primary Care Unavailable Halie BROOKS MD, Frank A Primary Care Provider Brianna vailable Artemio Grove Attending Unavailable Deshawn Noel Primary Care Unavailable Artemio Grove Referring Unavailable Deshawn Noel Primary Care Unavailable Griselda Bratlett Referring Unavailable Griselda Bartltet Attending Unavailable Tannhof TENONER OPERATOR.Shayy CHERRY Unavailable Zachary TENONER OPERATOR.Ye CHERRY Unavailable Tannhof TENONER OPERATOR.Shayy CHERRY Unavailable Unavail able NESTOR LINO Attending Unavailable BULL MASCORRO Referring Unavailable ELDERBROCK, DESHAWN Regine Primary Care Unavailable YE SHARMA Attending Unavailable ELDERBROCK, DESHAWN D Primary Care Unavailable NESTOR LINO Attending Unavailable BULL MASCORRO Referring Unavailable ELDERBROCK, DESHAWN Regine Primary Care Unavailable SHAYY SINGH Referring Unavailabl e ELDERBROCK, DESHAWN D Primary Care Unavailable ZACHARYYE CHRISTINA Attending Unavailable ELDERBROCK, DESHAWN Regine Primary Care Unavailable VA REAL Attending Unavailable YE SHARMA Referring Unavailable ELDERBROCK, DESHAWN Regine Primary Care Unavailable ROSE BEEBE Attending Unavailable VA REAL Referring Unavailable ELDERBROCK, DESHAWN Regine Primary Care Unavailable ELDERBROCK, DESHAWN D Primary Care Unavailable SHAYY SINGH Attending Unavailabl e ELDERBROCK, DESHAWN D Primary Care Unavailable ELDERBROCK, DESHAWN Regine Primary Care Unavailable ELDERBROCK, DESHAWN Regine Primary Care Unavailable LUZ COSTA Attending Unavailable ELDERBROCK, DESHAWN Regine Referring Unavailable ELDERBROCK, DESHAWN D Primary Care Unavailable YE SHARMA Attending Unavailable ELDERBROCK, DESHAWN D Primary Care Unavailable JAIRO Becker, JARVIS Referring Unavailabl e ELDERBROCK, DESHAWN D Primary Care Unavailable JAIRO Becker, JARVIS Attending Unavailabl e ELDERBROCK, DESHAWN D Primary Care Unavailable YE SHARMA Attending Unavailable ELDERBROCK, DESHAWN D Primary Care Unavailable ELDERBROCK, DESHAWN D Primary Care Unavailable BULL MASCORRO Attending Unavailable BULL MASCORRO Referring Unavailable ELDERBROCK, DESHAWN Regine Primary Care Unavailable Medications Current Medications Medication Drug Class(es) Dates Sig (Normalized) Sig (Original) amLODIPine 5 mg oral tablet (17 sources) Dihydropyridine Calcium Channel Lisa Start: 05-02-2024 take 1 tablet by mouth once daily amLODIPine (NORVASC) 5 mg tablet Take 1 tablet by mouth once daily. 90 tablet 3 05/02/2024 Active amoxicillin 500 mg oral tablet (20 sources) Penicillin-class Antibacterial Start: 08-11-2021 Amoxicillin 500 mg tablet Take 4 pills day of dental appointment 08/11/2021 Active Start: 02-15-2018 End: 06-07-2021 Amoxicillin 500 mg tablet Ta ke two tablets night before dental procedure, and two tablets 30 min prior to dental procedure 4 tablet 02/15/2018 06/07/2021 Discontinued Comment on above: Take 4 pills day of dental appointment atorvastatin 20 mg oral tablet (17 sources) HMG-CoA Reductase Inhibitor Start : 05-06 take 1 tablet by mouth once daily atorvastatin (LIPITOR) 20 mg tablet Take 1 tablet by mouth once daily. 90 tablet 3 05/06/2024 Active cephalexin 500 mg oral capsule (1 source) Cephalosporin Antibacterial Start : 10-29 End: 11-05 take 1 capsule by mouth three times daily cephALEXin (KEFLEX) 500 mg capsule Indications: Paronychia of finger of left hand Take 1 capsule by mouth three times daily for 7 days. 21 capsule 0 10/29/2021 11/05/2021 Active Comment on above: Take 1 capsule by mo [facility] three times daily for 7 days. ergocalciferol 1.25 mg oral capsule (5 sources) Provitamin D2 Compound Start : 01-10 take 1 capsule by mouth every week Ergocalciferol (Vitamin D2) (Vitamin D) 50,000 UNIT capsule Active 65649 UNIT PO Q7D January 10, 2018 12:00am hydroCHLOROthiazide 12.5 mg oral capsule (12 sources) Thiazide Diuretic Start : 12-25 take 1 capsule by mouth once daily hydroCHLOROthiazide 12.5 mg capsule Indications: Essential hypertension, benign , Bilateral leg edema Take 1 capsule by mouth once daily. 90 capsule 1 12/25/2024 Active losartan potassium 100 mg oral tablet (20 sources) Angiotensin 2 Receptor Lisa Start : 07-16 End: 01-18 take 1 tablet by mouth once daily losartan (COZAAR) 100 mg tablet Take 1 tablet by mouth once daily. 90 tablet 01/19/2025 Active Start: 04-13-2023 take 1 tablet by tonio once daily losartan (COZAAR) 100 mg tablet Take 1 tablet by mouth once daily. 90 tablet 3 04/13/2023 Active Start: 03-24-2022 End: 04-13-2023 take 1 tablet by mouth once daily losartan (COZAAR) 50 mg tablet Take 1 tablet by mouth once daily. 90 tablet 3 03/24/2022 04/13/2023 Discontinued Comment on above: Take 1 tablet by [facility] once daily. mupirocin 0.02 mg/mg topical ointment (1 source) RNA Synthetase Inhibitor Antibacterial Start: 10-29-2021 End: 11-08-2021 mupirocin (BACTROBAN) 2 % ointment Indications: Paronychia of finger of left hand Apply to affected area three times daily for 10 days. 22 g 0 10/29/2021 11/08/2021 Active Comment on above: Apply to affected ar ea three times daily for 10 days. OTC PRODUCT (20 sources) OTC PRODUCT Rowena min D 500mg daily Active OTC PRODUCT Rowena min D 500mg daily 0 Active Comment on above: Vitamin D 500mg issac y perflutren lipid microspheres 1.3 mL in NaCl (PF) 0.9% 10 mL injection (DEFINITY) (16 sources) Start: 11-26-19 End: 02-24-20 perflutren lipid microspheres 1.3 mL in NaCl (PF) 0.9% 10 mL injection (DEFINITY) polyethylene glycol 3350 659116 mg / potassium chloride 2970 mg / sodium bicarbonate 6740 mg / sodium chloride 5860 mg / sodium sulfate 07972 mg powder for oral solution (2 sources) Osmotic Laxative Start: 02-29-20 peg 3350-Electrolytes (GOLYTELY) 236-22.74-6.74 -5.86 gram suspension Refer to printed prep instructions from your provider. 4000 mL 02/28/2025 Active predniSONE 20 mg oral tablet (1 source) Start: 09-01-19 End: 09-06-19 take 1 tablet by mouth twice daily predniSONE (DELTASONE) 20 mg tablet Indications: Acute pharyngitis, unspecified etiology Take 1 tablet by mouth two times a day for 5 days. 10 tablet 09/01/2024 09/06/2024 Active 125 ml sodium chloride 9 mg/ml prefilled syringe (16 sources) Start: 11-26-19 End: 02-24-20 sodium chloride 0.9 % (flush) 10 mL (BD POSIFLUSH) tadalafil 20 mg oral tablet (20 sources) Phosphodiesterase 5 Inhibitor Start: 05-16-20 End: 02-18-20 24 Tadalafil (CIALIS) 20 mg tablet Indications: ED (erectile dysfunction) of organic origin Take 1 tablet by mouth as needed. 8 tablet 11 02/18/2024 Active Comment on above: Take 1 tablet by [facility] once daily. Completed/Discontinued Medications Medication Drug Class(es) Dates Sig (Normalized) Sig (Original) aspirin 81 mg delayed release oral tablet (20 sources) Platelet Aggregation Inhibitor, Nonsteroidal Anti-inflammatory Drug Start: 05-28-2020 ASPIRIN 81 TBEC 2 tablets daily ASPIRIN TBEC [id number] Leslie Marques LPN Start: 01-10-2018 take 81 mg by mouth once daily Aspirin Active 81 MG PO DAILY@0800 January 10, 2018 12:00am Start: 11-18-2017 take 2 tablets by [facility] once daily aspirin 81 mg chewable tablet Take 2 tablets by mouth once daily. 120 tablet 11/18/2017 Active Comment on above: Take 2 tablets by [facility] once daily. benzonatate 100 mg oral capsule (1 source) Non-narcotic Antitussive Start: End: benzonatate (TESSALON PERLE) 100 mg capsule Take 1-2 capsules tid prn, no more than 6 in 24 hours. 30 capsule 06/16/2021 08/11/2021 Discontinued cholecalciferol 1000 unt oral tablet (1 source) Vitamin D Start: VITAMIN D (CHOLECALCIFEROL) 25 MCG (1000 UT) TABS 1 tablet daily CHOLECALCIFEROL [id number] Leslie Marques LPN [place] 3 mg/ml / hydrocortisone 10 mg/ml / neomycin 3.3 mg/ml / thonzonium bromide 0.5 mg/ml otic suspension (2 sources) Aminoglycoside Antibacterial, Corticosteroid Start: 024 End: 024 Egvgyvjb-Dutcoz-KQ-[id number] nzonium (CORTISPORIN-TC) otic suspension Use 3 Drops in the ears three times a day for 5 days. (Disp 1 bottle) 1 mL 03/20/2024 03/20/2024 Discontinued 1 ml fentaNYL 0.05 mg/ml injection (1 source) Opioid Agonist Start: 09 End: 25-100 mcg, INTRAVENOUS, DIRECTED, Starting on Wed03/20/25 at 1500, Until Wed03/20/25 at 1859, DOSING DIRECTED BY PHYSICIAN FOR PROCEDURAL SEDATION ONLY, Intraprocedure hydrocortisone 10 mg/ml / neomycin 3.5 mg/ml / polymyxin b 88105 unt/ml otic suspension (8 sources) Aminoglycoside Antibacterial, Polymyxin-class Antibacterial, Corticosteroid Start: End: ccvcumlr-noachfeup-zmz rocortisone (CORTISPORIN) 3.5-10,000-1 mg/mL-unit/mL-% otic suspension Indications: Bilateral impacted cerumen Use 3 Drops in the right ear four times daily. 10 mL 07/20/2024 08/21/2024 Discontinued (Course of therapy completed) lisinopril 20 mg oral tablet (14 sources) Angiotensin Converting Enzyme Inhibitor Start: take 1 tablet by mouth once daily lisinopril (ZESTRIL, PRINIVIL) 20 mg tablet Indications: Essential hypertension, benign Take 1 tablet by mouth once daily. 90 tablet 3 12/05/2021 Active Start: 07-29-2020 End: 08-11-2021 take 1 tablet by mouth once daily lisinopril (ZESTRIL, PRINIVIL) 20 mg tablet Indications: Essential hypertension, benign Take 1 tablet by mouth once daily. 90 tablet 3 08/11/2021 Active Start: 01-10-2018 Lisinopril (Ze stril) 5 MG tablet Active 5 MG PO January 10, 2018 12:00am Start: 08-01-2013 LISINOPRIL 20 MG TABS 1 tablet daily LISINOPRIL [id number] Leslie Marques LPN Comment on above: Take 1 tablet by tonio th once daily. metoprolol tartrate 25 mg oral tablet (20 sources) beta-Adrenergic Lisa Start: 03-24-2022 End: 01-05-2023 take 0.5 tablet by mouth twice daily metoprolol tartrate, short acting, (LOPRESSOR) 25 mg tablet Take 0.5 tablets by mouth twice daily. 90 tablet 0 03/24/2022 01/05/2023 Discontinued Start: 01-10-2018 End: 12-05-2021 take 1 tablet by mouth twice daily metoprolol tartrate, short acting, (LOPRESSOR) 25 mg tablet Take 1 tablet by mouth twice daily. 180 tablet 3 05/16/2020 05/30/2021 Discontinued Comment on above: Take 1 tablet by tonio th twice daily. Take 0.5 tablets by mouth twice daily. 5 ml midazolam 1 mg/ml injection (1 source) Benzodiazepine Start: 025 End: 025 1-5 mg, INTRAVENOUS, DIRECTED, Starting on Wed03/20/25 at 1500, Until Wed03/20/25 at 1859, DOSING DIRECTED BY PHYSICIAN FOR PROCEDURAL SEDATION ONLY, Intraprocedure oxyCODONE hydrochloride 5 mg oral tablet (2 sources) Opioid Agonist Start: 023 End: 023 oxyCODONE IR (ROXICODONE) 5 mg immediate release tablet Take 5-10 mg by mouth. 0 12/01/2022 01/05/2023 Discontinued Comment on above: Take 5-10 mg by mout h. simvastatin 20 mg oral tablet (20 sources) HMG-CoA Reductase Inhibitor Start: 024 End: 024 take 1 tablet by mouth once daily at bedtime simvastatin (ZOCOR) 20 mg tablet Indications: Hyperlipidemia with target LDL less than 100 Take 1 tablet by mouth daily at bedtime. 90 tablet 3 07/15/2023 05/06/2024 Discontinued Start: 08-01-2013 End: 01-25-2023 take 1 tablet by mouth once daily at bedtime simvastatin (ZOCOR) 20 mg tablet Indications: Hyperlipidemia with target LDL less than 100 Take 1 tablet by mouth daily at bedtime. 90 tablet 3 05/16/2020 10/28/2021 Discontinued Comment on above: Take 1 tablet by tonio th daily at bedtime. traZODone hydrochloride 50 mg oral tablet (3 sources) Serotonin Reuptake Inhibitor Start: 3 End: take 1 tablet by mouth once daily at bedtime traZODone (DESYREL) 50 mg tablet Indications: Sleep disorder Take 1 tablet by mouth daily at bedtime. 30 tablet 1 01/05/2023 02/16/2023 Discontinued Comment on above: Take 1 tablet by tonio th daily at bedtime. Problems Active Problems Problem Classification Problem Date Documented Date Episodic/Chronic Abdominal pain (2 sources) Left inguinal pain; Translations: [Left lower quadrant pain] 02-16-2023 Episodic Cardiac and circulatory congenital anomalies (20 sources) Aortic valve stenosis; Translations: [Congenital stenosis of aortic valve] Onset: 03-01-2015 11-17-2017 Chronic Chronic obstructive pulmonary disease and bronchiectasis (1 source) Bronchitis; Translations: [Bronchitis, not specified as acute or chronic] 07-08-2021 Episodic Complications of surgical procedures or medical care (1 source) Hypoxemia during surgery; Translations: [Other intraoperative complications of the circulatory system, not elsewhere classified] 04-07-2024 Episodic Coronary atherosclerosis and other heart disease (20 sources) Coronary atherosclerosis; Translations: [Atherosclerotic heart disease of [place] coronary artery without angina pectoris] Onset: 11-16-2017 11-17-2017 Chronic Diabetes mellitus without complication (20 sources) Impaired fasting glycemia; Translations: [Impaired fasting glucose] Onset: 08-27-2017 08-27-2017 Episodic Disorders of lipid metabolism (20 sources) Hyperlipidemia; Translations: [Hyperlipidemia, unspecified] Onset: 05-04-2016 11-17-2017 Chronic Essential hypertension (20 sources) Benign essential hypertension; Translations: [Essential (primary) hypertension] Onset: 11-17-2017 11-17-2017 Chronic Heart valve disorders (20 sources) History of aortic valve replacement; Translations: [Presence of xenogenic heart valve] Onset: 03-01-2015 11-26-2017 Chronic Hyperplasia of prostate (2 sources) Benign prostatic hyperplasia; Translations: [Benign prostatic hyperplasia without lower urinary tract symptoms] Chronic Nutritional deficiencies (20 sources) Vitamin D deficiency; Translations: [Vitamin D deficiency, unspecified] Onset: 08-27-2017 08-27-2017 Chronic Osteoarthritis (20 sources) Unilateral primary osteoarthritis of first carpometacarpal joint, right hand; Translations: [Unilateral primary osteoarthritis of first carpometacarpal joint, left hand] Onset: 10-02-2015 05-29-2020 Chronic Other acquired deformities (2 sources) Mallet finger of left hand; Translations: [Mallet finger of left finger(s)] 01-09-2025 Episodic Other acquired deformities (1 source) Mallet finger of left finger(s); Translations: [Mallet finger of left finger(s)] Onset: 01-09-2025 Episodic Other and unspecified benign neoplasm (20 sources) History of polyp of colon; Translations: [Personal history of colonic polyps] Onset: 07-20-2011 07-20-2011 Episodic Other connective tissue disease (1 source) History of total knee arthroplasty; Translations: [Presence of artificial knee joint, bilateral] 08-19-2023 Chronic Other connective tissue disease (1 source) Unspecified rotator cuff tear or rupture of right shoulder, not specified as traumatic; Translations: [Unspecified rotator cuff tear or rupture of right shoulder, not specified as traumatic] Onset: 06-21-2024 Episodic Other connective tissue disease (1 source) Bursitis of olecranon of right elbow; Translations: [Olecranon bursitis, right elbow] 07-20-2024 Episodic Other ear and sense organ disorders (8 sources) Impacted cerumen of bilateral ears; Translations: [Impacted cerumen, bilateral] Episodic Other ear and sense organ disorders (1 source) Acute infective otitis externa; Translations: [Other infective otitis externa, bilateral] 03-20-2024 Episodic Other ear and sense organ disorders (1 source) Acute otitis externa of right ear; Translations: [Unspecified acute noninfective otitis externa, right ear] 04-07-2024 Episodic Other ear and sense organ disorders (2 sources) Otalgia, right ear; Translations: [Otalgia, unspecified] Onset: 02-23-2025 02-23-2025 Episodic Other injuries and conditions due to external causes (3 sources) Injury of finger of left hand; Translations: [Unspecified injury of left wrist, hand and finger(s), initial encounter] 01-08-2025 Episodic Other injuries and conditions due to external causes (1 source) Unspecified injury of left wrist, hand and finger(s), initial encounter; Translations: [Injury of finger of left hand, initial encounter] Onset: 01-09-2025 Episodic Other lower respiratory disease (2 sources) Cough; Translations: [Cough, unspecified type] 08-19-2023 Episodic Other male genital disorders (20 sources) Secondary erectile dysfunction; Translations: [Male erectile dysfunction, unspecified] Onset: 03-24-2018 03-24-2018 Chronic Other male genital disorders (1 source) Male erectile dysfunction, unspecified; Translations: [ED (erectile dysfunction) of organic origin] Onset: 03-24-2018 Chronic Other nutritional; endocrine; and metabolic disorders (20 sources) Body mass index 40+ - severely obese; Translations: [Morbid (severe) obesity due to excess calories] 11-24-2017 Chronic Other nutritional; endocrine; and metabolic disorders (20 sources) Obese class II; Translations: [Obesity, unspecified] Onset: 04-18-2023 04-18-2023 Chronic Other nutritional; endocrine; and metabolic disorders (1 source) Obesity caused by energy imbalance; Translations: [Morbid (severe) obesity due to excess calories] 02-23-2025 Chronic Other nutritional; endocrine; and metabolic disorders (1 source) Morbid (severe) obesity due to excess calories; Translations: [Morbid (severe) obesity due to excess calories (HCC)] Onset: 02-23-2025 Chronic Other screening for suspected conditions (not mental disorders or infectious disease) (1 source) Imaging of thorax abnormal; Translations: [Abnormal findings on diagnostic imaging of other specified body structures] 07-08-2021 Chronic Other screening for suspected conditions (not mental disorders or infectious disease) (2 sources) Encounter for screening for malignant neoplasm of colon; Translations: [Encounter for screening for malignant neoplasm of prostate] Onset: 02-19-2025 Episodic Other upper respiratory infections (4 sources) Acute upper respiratory infection; Translations: [Acute upper respiratory infection, unspecified] Episodic Residual codes; unclassified (20 sources) Sleep apnea; Translations: [Sleep apnea, unspecified] 11-17-2017 Chronic Residual codes; unclassified (3 sources) Obstructive sleep apnea syndrome; Translations: [Obstructive sleep apnea (adult) (pediatric)] 02-18-2024 Chronic Residual codes; unclassified (1 source) Obstructive sleep apnea (adult) (pediatric); Translations: [Obstructive sleep apnea syndrome] Onset: 11-17-2017 Chronic Residual codes; unclassified (2 sources) Sleep disorder; Translations: [Sleep disorder, unspecified] Episodic Residual codes; unclassified (1 source) Insomnia; Translations: [Insomnia, unspecified] Episodic Residual codes; unclassified (3 sources) Bilateral lower limb edema; Translations: [Localized edema] 12-25-2024 Episodic Residual codes; unclassified (1 source) Localized edema; Translations: [Bilateral leg edema] Onset: 01-23-2025 Episodic Screening and history of mental health and substance abuse codes (11 sources) Patient encounter status; Translations: [Encounter for screening for depression] Onset: 02-23-2025 02-18-2024 Episodic Skin and subcutaneous tissue infections (1 source) Paronychia of finger of left hand; Translations: [Cellulitis of left finger] Episodic Unclassified (20 sources) Transition of care; Translations: [Transition of care performed with sharing of clinical summary] Onset: 11-16-2017 11-17-2017 Unclassified (1 source) History of colonic polyps; Translations: [History of colonic polyps] Onset: 02-28-2025 Past or Other Problems Problem Classification Problem Date Documented Date Episodic/Chronic Abdominal hernia (20 sources) Inguinal hernia; Translations: [Unilateral inguinal hernia, without obstruction or gangrene, not specified as recurrent] Onset: 04-30-2008 Resolved: 11-29-2014 11-29-2014 Episodic Allergic reactions (20 sources) Solar degeneration; Translations: [Other skin changes due to chronic exposure to nonionizing radiation] Onset: 07-25-2013 07-25-2013 Episodic Cardiac dysrhythmias (20 sources) Atrial fibrillation; Translations: [Unspecified atrial fibrillation] Onset: 11-15-2017 Resolved: 11-16-2017 11-16-2017 Chronic Immunizations and screening for infectious disease (20 sources) Anti-nuclear factor positive; Translations: [Other specified abnormal immunological findings in serum] Onset: 10-02-2015 10-02-2015 Episodic Joint disorders and dislocations; trauma-related (20 sources) Tear of medial meniscus of knee; Translations: [Tear of medial cartilage or meniscus of knee, current] Onset: 03-29-2008 Resolved: 11-29-2014 11-29-2014 Episodic Other aftercare (20 sources) Surgical follow-up; Translations: [Encounter for follow-up examination after completed treatment for conditions other than malignant neoplasm] Onset: 05-02-2008 Resolved: 09-10-2008 09-10-2008 Episodic Other aftercare (1 source) Encounter for follow-up examination after completed treatment for conditions other than malignant neoplasm; Translations: [Encounter for follow-up for aortic valve replacement] Onset: 05-02-2024 Episodic Other and unspecified benign neoplasm (20 sources) Benign neoplasm of colon; Translations: [Benign neoplasm of colon, unspecified] Onset: 08-31-2007 Resolved: 11-29-2014 11-29-2014 Episodic Other connective tissue disease (20 sources) Cyst ; Translations: [Ganglion, multiple sites] Onset: 03-02-2013 Resolved: 11-29-2014 11-29-2014 Episodic Other ear and sense organ disorders (1 source) Impacted cerumen, left ear; Translations: [Impacted cerumen, left ear] Onset: 12-01-2024 Episodic Other lower respiratory disease (20 sources) Chronic cough; Translations: [Chronic cough] Onset: 05-16-2020 09-18-2020 Episodic Other nervous system disorders (20 sources) Peripheral nerve disease ; Translations: [Polyneuropathy, unspecified] Onset: 11-29-2014 Resolved: 05-25-2016 05-25-2016 Chronic Other nervous system disorders (20 sources) Paresthesia of hand ; Translations: [Anesthesia of skin] Onset: 10-02-2015 Resolved: 05-25-2016 05-25-2016 Episodic Other nervous system disorders (20 sources) Paresthesia of lower extremity; Translations: [Anesthesia of skin] Onset: 10-02-2015 Resolved: 05-25-2016 05-25-2016 Episodic Other non-traumatic joint disorders (20 sources) Pain in right knee; Translations: [Pain in joint, lower leg] Onset: 10-02-2015 Resolved: 05-25-2016 05-25-2016 Episodic Other skin disorders (20 sources) Epidermoid cyst; Translations: [Epidermal cyst] Onset: 01-16-2013 Resolved: 03-02-2013 03-02-2013 Episodic Other skin disorders (20 sources) Actinic keratosis; Translations: [Actinic keratosis] Onset: 07-25-2013 Resolved: 11-29-2014 11-29-2014 Episodic Other skin disorders (20 sources) Skin tag; Translations: [Other hypertrophic disorders of the skin] Onset: 07-25-2013 Resolved: 11-29-2014 11-29-2014 Episodic Otitis media and related conditions (1 source) Acute suppurative otitis media without spontaneous rupture of ear drum, right ear; Translations: [Acute suppurative otitis media of right ear] Onset: 12-01-2024 Episodic Pleurisy; pneumothorax; pulmonary collapse (20 sources) Atelectasis; Translations: [Atelectasis] Onset: 11-13-2017 Resolved: 11-16-2017 11-16-2017 Episodic Residual codes; unclassified (20 sources) Family history of prostate cancer; Translations: [Family history of malignant neoplasm of prostate] Onset: 02-25-2015 02-25-2015 Episodic Residual codes; unclassified (20 sources) FH: Psoriasis; Translations: [Family history of diseases of the skin and subcutaneous tissue] Onset: 10-02-2015 10-02-2015 Episodic Residual codes; unclassified (20 sources) Transition of care; Translations: [Other specified health status] Onset: 11-16-2017 11-17-2017 Episodic Respiratory failure; insufficiency; arrest (adult) (20 sources) Ventilator finding; Translations: [Dependence on respirator [ventilator] status] Onset: 11-12-2017 Resolved: 11-13-2017 11-13-2017 Chronic Spondylosis; intervertebral disc disorders; other back problems (20 sources) Lumbago co-occurrent with right-side sciatica; Translations: [Lumbago with sciatica, right side] Onset: 10-02-2015 Resolved: 05-25-2016 05-25-2016 Episodic Unclassified (1 source) Problem Unclassified (4 sources) Patient encounter status 08-21-2024 Unclassified (3 sources) Injury of finger of left hand 01-08-2025 Viral infection (20 sources) Verruca vulgaris; Translations: [Viral wart, unspecified] Onset: 09-06-2013 Resolved: 11-29-2014 11-29-2014 Episodic Results Test Name Value Interpretation Reference Range Facility [id number] 03-20-2025 [id number] HNO ID: [id number] Author: BHUMI CRUZ RN Service: ? Author Type: Registered Nurse Type: [id number] Filed: 03/20/2025 15:19 Note Text: The patient received a copy of Colonoscopy discharge instructions that contain information for how to contact the physician who performed the procedure and when to seek medical care. Normal [facility] Colonoscopyon 03-20-2025 Colonoscopy [facility] Gastrointestinal Endoscopy Patient Name: Bonny Redding Procedure Date: 03/20/2025 2:25 PM Date of : 1955 Admit Type: Outpatient Age: 69 Gender: Male Note Status: Finalized Procedure: Colonoscopy - screening high risk Indications: High risk colon cancer surveillance: Personal history of adenomatous colonic polyps Providers: Rose Beebe MD Patient Profile: Refer to note in patient chart for documentation of history and physical. Last Colonoscopy: 2019. Referring Physician: Va Real (Referring MD) Medicines: Midazolam 5 mg IV, Fentanyl 100 micrograms IV Complications: No immediate complications. Requesting Provider: Procedure: Pre-Anesthesia Assessment: - Prior to the procedure, a History and Physical was performed, and patient medications and allergies were reviewed. The patient is competent. The risks and benefits of the procedure and the sedation options and risks were discussed with the patient. All questions were answered and informed consent was obtained. Patient identification and proposed procedure were verified by the physician in the pre-procedure area. Mental Status Examination: alert and oriented. Respiratory Examination: clear to auscultation. CV Examination: normal. Prophylactic Antibiotics: The patient does not require prophylactic antibiotics. Prior Anticoagulants: The patient has taken no anticoagulant or antiplatelet agents. ASA Grade Assessment: III - A patient with severe systemic disease. After reviewing the risks and benefits, the patient was deemed in satisfactory condition to undergo the procedure. The anesthesia plan was to use moderate sedation / analgesia (conscious sedation). Immediately prior to administration of medications, the patient was re-assessed for adequacy to receive sedatives. The heart rate, respiratory rate, oxygen saturations, blood pressure, adequacy of pulmonary ventilation, and response to care were monitored throughout the procedure. The physical status of the patient was re-assessed after the procedure. After I obtained informed consent, the scope was passed under direct vision. Throughout the procedure, the patient's blood pressure, pulse, and oxygen saturations were monitored continuously. The Colonoscope was introduced through the anus and advanced to the cecum, identified by the appendiceal orifice, ileocecal valve and palpation. The colonoscopy was performed without difficulty. The patient tolerated the procedure well. The quality of the bowel preparation was adequate to identify polyps greater than 5 mm in size. The appendiceal orifice and the rectum were photographed. Moderate Sedation: The administration of moderate sedation was initiated at 14:34. Moderate (conscious) sedation was personally administered by the endoscopist. The following parameters were monitored: oxygen saturation, heart rate, blood pressure, respiratory rate, EKG, adequacy of pulmonary ventilation, and response to care. Total physician intraservice time was 22 minutes. Findings: The perianal and digital rectal examinations were normal. Non-bleeding internal hemorrhoids were found. Impression: - Non-bleeding internal hemorrhoids. - No specimens collected. Recommendation: - Repeat colonoscopy in 5 years for surveillance. - Return to primary care physician PRN. - Patient has a contact number available for emergencies. The signs and symptoms of potential delayed complications were discussed with the patient. Return to normal activities tomorrow. Written discharge instructions were provided to the patient. - Continue present medications. - Resume previous diet. Procedure Code(s): --- Professional --- 60616, Colonoscopy, flexible; diagnostic, including collection of specimen(s) by brushing or washing, when performed (separate procedure) 98899, 59, Moderate sedation services provided by the same physician or other qualified health direct care professional performing the diagnostic or therapeutic service that the sedation supports, requiring the presence of an independent trained observer to assist in the monitoring of the patient's level of consciousness and physiological status; initial 15 minutes of intraservice time, patient age 5 years or older Diagnosis Code(s): --- Professional --- K64.8, Other hemorrhoids Z12.11, Encounter for screening for malignant neoplasm of colon Z86.0101, Personal history of adenomatous and serrated colon polyps CPT copyright 2020 [employer]. All rights reserved. The codes documented in this report are preliminary and upon insurance coder review may be revised to meet current compliance requirements. Attending Participation: I personally performed the entire procedure. Scope In: 2:38:34 PM Scope Out: 2:55:30 PM MD Rose Rodriguez MD 03/20/2025 2:59:32 PM This report has been signed el (more content not included)... Normal [facility] Colonoscopy Study [facility]atio [facility] Patient Name: Bonny Redding Procedure Date: 03/20/2025 2:25 PM Date of : 1955 Admit Type: Outpatient Age: 69 Gender: Male Note Status: Finalized Procedure: Colonoscopy - screening high risk Indications: High risk colon cancer surveillance: Personal history of adenomatous colonic polyps Providers: Rose Beebe MD Patient Profile: Refer to note in patient chart for documentation of history and physical. Last Colonoscopy: 2019. Referring Physician: Va Real (Referring MD) Medicines: Midazolam 5 mg IV, Fentanyl 100 micrograms IV Complications: No immediate complications. Requesting Provider: Procedure: Pre-Anesthesia Assessment: - Prior to the procedure, a History and Physical was performed, and patient medications and allergies were reviewed. The patient is competent. The risks and benefits of the procedure and the sedation options and risks were discussed with the patient. All questions were answered and informed consent was obtained. Patient identification and proposed procedure were verified by the physician in the pre-procedure area. Mental Status Examination: alert and oriented. Respiratory Examination: clear to auscultation. CV Examination: normal. Prophylactic Antibiotics: The patient does not require prophylactic antibiotics. Prior Anticoagulants: The patient has taken no anticoagulant or antiplatelet agents. ASA Grade Assessment: III - A patient with severe systemic disease. After reviewing the risks and benefits, the patient was deemed in satisfactory condition to undergo the procedure. The anesthesia plan was to use moderate sedation / analgesia (conscious sedation). Immediately prior to administration of medications, the patient was re-assessed for adequacy to receive sedatives. The heart rate, respiratory rate, oxygen saturations, blood pressure, adequacy of pulmonary ventilation, and response to care were monitored throughout the procedure. The physical status of the patient was re-assessed after the procedure. After I obtained informed consent, the scope was passed under direct vision. Throughout the procedure, the patient's blood pressure, pulse, and oxygen saturations were monitored continuously. The Colonoscope was introduced through the anus and advanced to the cecum, identified by the appendiceal orifice, ileocecal valve and palpation. The colonoscopy was performed without difficulty. The patient tolerated the procedure well. The quality of the bowel preparation was adequate to identify polyps greater than 5 mm in size. The appendiceal orifice and the rectum were photographed. Moderate Sedation: The administration of moderate sedation was initiated at 14:34. Moderate (conscious) sedation was personally administered by the endoscopist. The following parameters were monitored: oxygen saturation, heart rate, blood pressure, respiratory rate, EKG, adequacy of pulmonary ventilation, and response to care. Total physician intraservice time was 22 minutes. Findings: The perianal and digital rectal examinations were normal. Non-bleeding internal hemorrhoids were found. Impression: - Non-bleeding internal hemorrhoids. - No specimens collected. Recommendation: - Repeat colonoscopy in 5 years for surveillance. - Return to primary care physician PRN. - Patient has a contact number available for emergencies. The signs and symptoms of potential delayed complications were discussed with the patient. Return to normal activities tomorrow. Written discharge instructions were provided to the patient. - Continue present medications. (more content not included)... PROVATION [facility] Radiology Study observation (narrative) [facility] HISTORY PHYSICALon HISTORY PHYSICAL HNO ID: [id number] Author: ROSE BEEBE MD Service: General Surgery Author Type: Physician Type: H&P Filed: 03/20/2025 13:33 Note Text: HISTORY AND PHYSICAL Bonny Redding Jr. : 1955 REFERRING PHYSICIAN: Ye Sharma [facility] [address] CHIEF COMPLAINT: Patient presents with: Consult: Due for colonoscopy, denies GI issues HPI: Bonny is a 69 year old male referred for endoscopy. Bonny notes due for screening colonoscopy-hx of polyps (2019). Bonny denies abdominal pain. Bonny denies diarrhea. Bonny denies constipation. Bonny denies a change in bowel habits. Bonny denies melena. Bonny denies bright red blood per rectum. Bonny denies hemorrhoids. Bonny denies family history of colon issues. Bonny denies heartburn. Bonny denies dysphagia. Bonny denies a history of ulcers/ peptic ulcer disease. Orlando follows with [facility] cardiology for hx of HTN, HLD, CAD AND s/p AVR. Last OV 04/2024. He denies CP, SOB, dizziness, palpitations, syncope, edema, recent hospitalizations Other medical history is significant for JULIET c/w CPAP AND obesity. Bonny has undergone prior endoscopy. Last colonoscopy was 01/[address] Mccoy at [facility]. Sedation: Fentanyl 100 micrograms IV, Midazolam 5 mg IV Impression: - One 8 mm polyp in the ascending colon, removed with a hot snare. Resected and retrieved. - One 10 mm polyp in the ascending colon, removed with a hot snare. Resected and retrieved. Clip was placed. CONVERTED FINAL DIAGNOSIS Ascending colon, polypectomy - Fragments of tubular adenoma. TP/ka 02/06/2020 CURRENT MEDICATIONS Current Outpatient Medications Medication Sig losartan (COZAAR) 100 mg tablet Take 1 tablet by mouth once daily. hydroCHLOROthiazide 12.5 mg capsule Take 1 capsule by mouth once daily. atorvastatin (LIPITOR) 20 mg tablet Take 1 tablet by mouth once daily. amLODIPine (NORVASC) 5 mg tablet Take 1 tablet by mouth once daily. Tadalafil (CIALIS) 20 mg tablet Take 1 tablet by mouth as needed. aspirin 81 mg chewable tablet Take 2 tablets by mouth once daily. peg 3350-Electrolytes (GOLYTELY) 236-22.74-6.74 -5.86 gram suspension Refer to printed prep instructions from your provider. OTC PRODUCT Vitamin D 500mg daily No current facility-administered medications for this visit. ALLERGIES: Patient has no known allergies. PAST MEDICAL HISTORY PAST MEDICAL HISTORY Diagnosis Date Aortic stenosis with bicuspid valve (HCC) 03/01/2015 Benign neoplasm of colon Chronic cough 05/16/2020 No resolution when ACEi stopped. Negative methecholine challenge 09/2020. Coronary artery disease Essential hypertension, benign 15 yr Hyperlipidemia LDL goal <130 Morbid (severe) obesity due to excess calories (HCC) Obesity, unspecified Other and unspecified hyperlipidemia 15 yrs Peripheral neuropathy 11/29/2014 Personal history of colonic polyps Primary osteoarthritis, left hand Snoring Unspecified sleep apnea 2007 uses CPAP Vitamin D deficiency 2018 PAST SURGICAL HISTORY PAST SURGICAL HISTORY Procedure Laterality Date CATARACT EXTRACTION HX 2014 COLONOSCOPY FLX DX W/COLLJ SPEC WHEN PFRMD 08/31/2007 Colonoscopy COLONOSCOPY FLX DX W/COLLJ SPEC WHEN PFRMD N/A 10/12/2016 COLONOSCOPY W/BIOPSY SINGLE/MULTIPLE 07/20/2011 EXC LESION TDN SHTH/JT CAPSL HAND/FNGR 02/24/2013 Excision ganglion cyst left middle finger HEART SURGERY HX 2018 Aortic valve surgery LAPAROSCOPY SURG RPR INITIAL INGUINAL HERNIA 05/17/2008 RIGHT PAST SURGICAL HISTORY OF tonsils and adenoids removed PAST SURGICAL HISTORY OF hernia PAST SURGICAL HISTORY OF 04/18/2008 right meniscus repair PAST SURGICAL HISTORY OF 07/2010 right foot surgery PAST SURGICAL HISTORY OF Right 07/28/2022 Right carpometacarpal arthroplasty with flexor carpi radialis interposition, first dorsal compartment tenosynovectomy right partial trapezodi excision REPAIR ROTATOR CUFF,ACUTE Right 05/25/2024 [facility] RPR UMBILICAL HRNA 5 YRS/> REDUCIBLE 05/17/2008 SEPTOPLASTY/SUBMUCOUS RESECJ W/WO CARTILAGE GRF 2005 Septoplasty TOTAL KNEE REPLACEMENT Left 11/13/2022 Dr. Jackson Mera TOTAL KNEE REPLACEMENT Right 02/19/2023 FAMILY HISTORY FAMILY HISTORY Problem Relation Age of Onset Alzheimer's Disease Mother age 76-COPD COPD Mother other (Hypertension, Hyperlipidemia) Mother Coronary Artery Disease Father 60 valve replacement Prostate Cancer Father other (PARKINSON) Father Prostate Cancer Paternal Uncle Prostate Cancer Maternal Grandfather Hypertension Sister [SOCIAL HISTORY] [SOCIAL HISTORY] Social History Tobacco Use Smoking status: Never Smokeless tobacco: Never Tobacco comments: ETS in childhood home, motrher smoker. Vaping Use Vaping status: Never Used Substance Use Topics Alcohol use: No Drug use: No REVIEW OF SYMPTOMS: REVIEW OF SYSTEMS: General: The patient denies fatigue, denies weight loss, (more content not included)... Normal [facility] CNOVon 02-28-2025 CNOV Office Visit (GENSWS ) BONNY REDDING JR. ([id number]) 1955 M NFR Date Time Provider Department 02/28/25 3:00 PM VA REAL During your visit today, we recorded the following information about you: Pulse Respiration Blood pressure Weight 57/minute 16/minute 136/77 146.1 kg Va Real APRN.CNP 02/28/2025 3:32 PM Signed HISTORY AND PHYSICAL Bonny Redding Jr. : 1955 REFERRING PHYSICIAN: Ye Sharma [address] [facility] [address] CHIEF COMPLAINT: Patient presents with: Consult: Due for colonoscopy, denies GI issues HPI: Bonny is a 69 year old male referred for endoscopy. Bonny notes due for screening colonoscopy-hx of polyps (2019). Bonny denies abdominal pain. Bonny denies diarrhea. Bonny denies constipation. Bonny denies a change in bowel habits. Bonny denies melena. Bonny denies bright red blood per rectum. Bonny denies hemorrhoids. Bonny denies family history of colon issues. Bonny denies heartburn. Bonny denies dysphagia. Bonny denies a history of ulcers/ peptic ulcer disease. Orlando follows with [facility] cardiology for hx of HTN, HLD, CAD AND s/p AVR. Last OV 04/2024. He denies CP, SOB, dizziness, palpitations, syncope, edema, recent hospitalizations Other medical history is significant for JULIET c/w CPAP AND obesity. Bonny has undergone prior endoscopy. Last colonoscopy was 01/[address] Mccoy at [facility]. Sedation: Fentanyl 100 micrograms IV, Midazolam 5 mg IV Impression: - One 8 mm polyp in the ascending colon, removed with a hot snare. Resected and retrieved. - One 10 mm polyp in the ascending colon, removed with a hot snare. Resected and retrieved. Clip was placed. CONVERTED FINAL DIAGNOSIS Ascending colon, polypectomy - Fragments of tubular adenoma. TP/ka 02/06/2020 Current Outpatient Medications Medication Sig losartan (COZAAR) 100 mg tablet Take 1 tablet by mouth once daily. hydroCHLOROthiazide 12.5 mg capsule Take 1 capsule by mouth once daily. atorvastatin (LIPITOR) 20 mg tablet Take 1 tablet by mouth once daily. amLODIPine (NORVASC) 5 mg tablet Take 1 tablet by mouth once daily. Tadalafil (CIALIS) 20 mg tablet Take 1 tablet by mouth as needed. aspirin 81 mg chewable tablet Take 2 tablets by mouth once daily. peg 3350-Electrolytes (GOLYTELY) 236-22.74-6.74 -5.86 gram suspension Refer to printed prep instructions from your provider. OTC PRODUCT Vitamin D 500mg daily No current facility-administered medications for this visit. ALLERGIES: Patient has no known allergies. PAST MEDICAL HISTORY Diagnosis Date Aortic stenosis with bicuspid valve (HCC) 03/01/2015 Benign neoplasm of colon Chronic cough 05/16/2020 No resolution when ACEi stopped. Negative methecholine challenge 09/2020. Coronary artery disease Essential hypertension, benign 15 yr Hyperlipidemia LDL goal <130 Morbid (severe) obesity due to excess calories (HCC) Obesity, unspecified Other and unspecified hyperlipidemia 15 yrs Peripheral neuropathy 11/29/2014 Personal history of colonic polyps Primary osteoarthritis, left hand Snoring Unspecified sleep apnea 2007 uses CPAP Vitamin D deficiency 2017 PAST SURGICAL HISTORY Procedure Laterality Date CATARACT EXTRACTION HX 2013 COLONOSCOPY FLX DX W/COLLJ SPEC WHEN PFRMD 08/31/2007 Colonoscopy COLONOSCOPY FLX DX W/COLLJ SPEC WHEN PFRMD N/A 10/12/2016 COLONOSCOPY W/BIOPSY SINGLE/MULTIPLE 07/20/2011 EXC LESION TDN SHTH/JT CAPSL HAND/FNGR 02/24/2013 Excision ganglion cyst left middle finger HEART SURGERY HX 2018 Aortic valve surgery LAPAROSCOPY SURG RPR INITIAL INGUINAL HERNIA 05/17/2008 RIGHT PAST SURGICAL HISTORY OF tonsils and adenoids removed PAST SURGICAL HISTORY OF hernia PAST SURGICAL HISTORY OF 04/18/2008 right meniscus repair PAST SURGICAL HISTORY OF 07/2010 right foot surgery PAST SURGICAL HISTORY OF Right 07/28/2022 Right carpometacarpal arthroplasty with flexor carpi radialis interposition, first dorsal compartment tenosynovectomy right partial trapezodi excision REPAIR ROTATOR CUFF,ACUTE Right 05/25/2024 [facility] RPR UMBILICAL HRNA 5 YRS/> REDUCIBLE 05/17/2008 SEPTOPLASTY/SUBMUCOUS RESECJ W/WO CARTILAGE GRF 2004 Septoplasty TOTAL KNEE REPLACEMENT Left 11/13/2022 Dr. Jackson Mera TOTAL KNEE REPLACEMENT Right 02/19/2023 FAMILY HISTORY Problem Relation Age of Onset Alzheimer's Disease Mother age 76-COPD COPD Mother other (Hypertension, Hyperlipidemia) Mother Coronary Artery Disease Father 60 valve replacement Prostate Cancer Father other (PARKINSON) Father Prostate Cancer Paternal Uncle Prostate Cancer Maternal Grandfather Hypertension Sister SOCIAL HISTORY[1] REVIEW OF SYMPTOMS: REVIEW OF SYSTEMS: General: The patient denies fatigue, denies weight loss, denies weight gain, denies feeling hot, and feelings (more content not included)... Normal [facility] CNOVon 02-23-2025 CNOV Office Visit (FAMPWS ) BONNY REDDING JR. ([id number]) 1955 M NFR Date Time Provider Department 02/23/25 10:00 AM YE SHARMA FAMPWS During your visit today, we recorded the following information about you: Pulse Respiration Blood pressure Weight 64/minute 20/minute 120/72 144.6 kg Ye Sharma APRN.DILIP 02/23/2025 10:23 AM Signed Chief Complaint Patient presents with: 6 Month Exam Ear Infection: Right HPI Bonny Redding Jr. is a 69 year old male who presents here today for above reason. Orlando Redding is a 69-year-old male with a history of prediabetes, hyperbilirubinemia, and lower extremity edema, presenting for a 6-month follow-up. Orlando reports right otalgia that was not present during his last visit approximately one month ago. He also needs a consult to general surgery to discuss colon cancer screening. Recent lab results show an HbA1c of 6.0%, an increase from previous values of 5.7-5.8% over the past few years. In response, Orlando has been attempting to control his weight by avoiding second servings. He consumes diet beverages and has reduced his intake of processed breads, switching from cereal with milk to two scrambled eggs for breakfast. He denies consuming regular sugary drinks or milk. Orlando also reports a history of hyperbilirubinemia, with a recent value of 1.4 mg/dL, down from a previous value of 1.8 mg/dL three years ago. He has been consistently drinking 64 ounces of water daily, sometimes more, but notes that his fluid intake was lower prior to his last visit. He also reports significant improvement in lower extremity edema with the use of compression socks, noting a reduction in leg circumference from 19.25 inches to approximately 18 inches. He uses two different types of compression socks, one providing up to 20 mmHg and the other up to 30 mmHg of pressure, with the latter being more effective. He has an upcoming appointment with Dr. Borrego at the [facility] on May 24. Having occasional right ear pain. None now. Would like me to look at it. Wears hearing aides. Occasionally will use debrox. Past medical history, appointments, medications, allergies reviewed. EXAM: BP 120/72 Pulse 64 Resp 20 Wt (!) 144.6 kg (318 lb 12.8 oz) BMI 43.24 kg/m? General Appearance: Well appearing, alert, in no acute distress, well-hydrated, well nourished.. Ears: Positive findings: cerumen on right, amount Small. Lungs: Lungs clear to auscultation. No wheezing, rhonchi, rales.. Heart: RRR without murmur, gallop, or rubs. No ectopy. Extremities: Pulses: 2+, Edema: +1. Latest Ref Rng 02/19/2025 Protein, Total 6.3 - 8.0 g/dL 6.7 Albumin 3.9 - 4.9 g/dL 4.3 Calcium 8.5 - 10.2 mg/dL 9.8 Bilirubin, Total 0.2 - 1.3 mg/dL 1.4 (H) Alkaline Phosphatase 38 - 113 U/L 74 AST 14 - 40 U/L 26 ALT 10 - 54 U/L 32 Glucose 74 - 99 mg/dL 126 (H) BUN 9 - 24 mg/dL 20 Creatinine 0.73 - 1.22 mg/dL 1.14 Sodium 136 - 144 mmol/L 141 Potassium 3.7 - 5.1 mmol/L 4.3 Chloride 98 - 107 mmol/L 105 CO2 22 - 30 mmol/L 22 Anion Gap 8 - 15 mmol/L 14 eGFR >=60 mL/min/1.73m? 70 Cholesterol, Total <200 mg/dL 165 Triglyceride <150 mg/dL 77 HDL Cholesterol >39 mg/dL 48 LDL Cholesterol, Calculated <100 mg/dL 102 (H) Non HDL Cholesterol <130 mg/dL 117 VLDL Cholesterol <30 mg/dL 13 TC:HDL Ratio <5.10 3.44 LDL:HDL Ratio <2.54 2.13 Fasting Time hrs 12 Hemoglobin A1C 4.3 - 5.6 % 6.0 (H) Estimated Average Glucose mg/dL 126 PSA Screening <2.60 ng/mL 0.53 Assessment and Plan 1. Essential (primary) hypertension (I10) Blood pressure is well-controlled. Continue current antihypertensive regimen. 2. Bilateral leg edema (R60.0) Significant improvement noted with compression stockings (20-30 mmHg). Right leg circumference reduced from 19.25 inches to approximately 18 inches; similar improvement in left leg. Continue wearing compression stockings daily. 3. Primary osteoarthritis, left hand (M19.042) 4. Screening for depression (Z13.31) 5. Morbid (severe) obesity due to excess calories (HCC) (E66.01) 6. Encounter for screening examination for other mental health and behavioral disorders (Z13.39) 7. Screening for colon cancer (Z12.11) Consultation scheduled with Child Surgery for colon cancer screening. 8. Impaired fasting glucose (R73.01) Hemoglobin A1c increased to 6.0%, previously in the upper 5s (5.7-5.8) for several years. - Educated on dietary modifications to reduce carbohydrate intake, including avoiding large portions of rice, pasta, and bread. - Discussed potential future use of Metformin if A1c continues to rise. - Recheck A1c in 6 months. 9. Hyperlipidemia LDL goal <130 (E78.5) LDL cholesterol is 102 mg/dL, consistent with previous values and slightly improved. Continue current lipid management. 10. Right ear pain (H92.01) Mild otalgia reported; pre (more content not included)... Normal [facility] Comprehensive metabolic 2000 panelon 02-19-2025 Albumin [Mass/Vol] 4.3 g/dL Normal 3.9-4.9 [facility] Comment on above: Order Comment: Speci men Type: BLOOD SPECIMENOrdering Facility: [facility] Address: [address] [place] [address] Performed By: #### 2 4323-8, 31097-5 ####[facility] LABCLIA [id number] [place] [address] [place] ALP [Catalytic activity/Vol] 74 U/L Normal 38-113 [facility] Comment on above: Order Comment: Speci men Type: BLOOD SPECIMENOrdering Facility: [facility] Address: [address] [place] [address] Performed By: #### 2 4323-8, 16091-8 ####[facility] LABCLIA [id number] [address] [address] [place] ALT [Catalytic activity/Vol] 32 U/L Normal 10-54 [facility] Comment on above: Order Comment: Speci men Type: BLOOD SPECIMENOrdering Facility: [facility] Address: [address] [place] [address] Performed By: #### 2 4323-8, 57004-7 ####[facility] LABCLIA [id number] [facility] [address] [place] [address] [place] Anion gap [Moles/Vol] 14 mmol/L Normal 8-15 [facility] Comment on above: Order Comment: Speci men Type: BLOOD SPECIMENOrdering Facility: [facility] Address: [address] [place] [address] Performed By: #### 2 4323-8, 09969-2 ####[facility] LABCLIA [id number] [address], [facility] [place] AST [Catalytic activity/Vol] 26 U/L Normal 14-40 [facility] Comment on above: Order Comment: Speci men Type: BLOOD SPECIMENOrdering Facility: [facility] Address: [address] [place] [address] Performed By: #### 2 4323-8, 86440-9 ####[facility] LABCLIA [id number] [place] [address] [place] Bilirubin [Mass/Vol] 1.4 mg/dL High 0.2-1.3 [facility] Comment on above: Order Comment: Speci men Type: BLOOD SPECIMENOrdering Facility: [facility] Address: [address] [place] [address] Performed By: #### 2 4323-8, 41611-8 ####[facility] LABCLIA [id number] [place] [id number] [place] Calcium [Mass/Vol] 9.8 mg/dL Normal 8.5-10.2 [facility] Comment on above: Order Comment: Speci men Type: BLOOD SPECIMENOrdering Facility: [facility] Address: [address] [place], [place] [address] Performed By: #### 2 4323-8, 44620-5 ####[facility] LABCLIA [id number] [place] [id number] [place] Chloride [Moles/Vol] 105 mmol/L Normal 98-107 [facility] Comment on above: Order Comment: Speci men Type: BLOOD SPECIMENOrdering Facility: [facility] Address: [address] [place] [address] Performed By: #### 2 4323-8, 63825-5 ####[facility] LABIA [id number] [address] [address] [place] CO2 [Moles/Vol] 22 mmol/L Normal 22-30 [facility] Comment on above: Order Comment: Speci men Type: BLOOD SPECIMENOrdering Facility: [facility] Address: [address] [place] [address] Performed By: #### 2 4323-8, 57159-1 ####[facility] LABIA [id number] [place] [id number] [place] Creatinine [Mass/Vol] 1.14 mg/dL Normal 0.73-1.22 [facility] Comment on above: Order Comment: Speci men Type: BLOOD SPECIMENOrdering Facility: [facility] Address: [address] [place] [address] Performed By: #### 2 4323-8, 34932-7 ####[facility] LABIA [id number] [place] [address] [place] eGFRcr SerPlBld CKD-EPI 2020 70 mL/min/1.73m??? Normal >=60 [facility] Comment on above: Order Comment: Speci men Type: BLOOD SPECIMENOrdering Facility: [facility] Address: [address] [place] [address] Result Comment: Araceli mated Glomerular Filtration Rate (eGFR) is calculated using the 2020 CKD-EPI creatinine equation. This equation utilizes serum creatinine, sex, and age as parameters. The creatinine assay has traceable calibration to isotope dilution-mass spectrometry. Refer to KDIGO guidelines for clinical interpretation. In patients with unstable renal function, e.g. those with acute kidney injury, the eGFR may not accurately reflect actual GFR. Performed By: #### 2 4323-8, 16428-7 ####[facility] LABCLIA [id number] [address] [address] [place] Glucose [Mass/Vol] 126 mg/dL High 74-99 [facility] Comment on above: Order Comment: Speci men Type: BLOOD SPECIMENOrdering Facility: [facility] Address: [address] [place] [address] Result Comment: The [place] Diabetes Association (ADA) provides guidance for cutoff values for fasting glucose and random glucose. The ADA defines fasting as no caloric intake for at least 8 hours. Fasting plasma glucose results between 100 to 125 mg/dL indicate increased risk for diabetes (prediabetes). Fasting plasma glucose results greater than or equal to 126 mg/dL meet the criteria for diagnosis of diabetes. In the absence of unequivocal hyperglycemia, results should be confirmed by repeat testing. In a patient with classic symptoms of hyperglycemia or hyperglycemic crisis, random plasma glucose results greater than or equal to 200 mg/dL meet the criteria for diagnosis of diabetes. Reference: Standards of Medical Care in Diabetes 2016, [place] Diabetes Association. Diabetes Care. 2016.39(Suppl 1). Performed By: #### 2 4323-8, 30184-0 ####[facility] LABIA [id number] [place] [address] [place] Potassium [Moles/Vol] 4.3 mmol/L Normal 3.7-5.1 [facility] Comment on above: Order Comment: Speci men Type: BLOOD SPECIMENOrdering Facility: [facility] Address: [address] [place] [address] Performed By: #### 2 4323-8, 64856-0 ####[facility] LABIA [id number] [place] [id number] [place] Protein [Mass/Vol] 6.7 g/dL Normal 6.3-8.0 [facility] Comment on above: Order Comment: Speci men Type: BLOOD SPECIMENOrdering Facility: [facility] Address: [address] [place] [address] Performed By: #### 2 4323-8, 73776-8 ####[facility] LABIA [id number] [address] [address] [place] Sodium [Moles/Vol] 141 mmol/L Normal 136-144 [facility] Comment on above: Order Comment: Speci men Type: BLOOD SPECIMENOrdering Facility: [facility] Address: [address] [place] [address] Performed By: #### 2 4323-8, 72870-6 ####[facility] LABIA [id number] [address] [address] [place] Urea nitrogen [Mass/Vol] 20 mg/dL Normal 9-24 [facility] Comment on above: Order Comment: Speci men Type: BLOOD SPECIMENOrdering Facility: [facility] Address: [address] [place] [address] Performed By: #### 2 4323-8, 82817-8 ####[facility] LABIA [id number] [address] [address] [place] HbA1c (Bld)on 02-19-2025 Average glucose Estimated from glycated hemoglobin (Bld) [Mass/Vol] 126 mg/dL Normal [facility] Comment on above: Order Comment: Speci men Type: BLOOD SPECIMENOrdering Facility: [facility] Address: [address] [place] [address] Result Comment: eAG: (Estimated average glucose) is a calculated value from HgbA1c and is phone representative of the average blood glucose level in the last 2-3 month period. Performed By: #### 5 5454-3 ####[facility] [id number] [address] [address] [place] HbA1c (Bld) [Mass fraction] 6.0 % High 4.3-5.6 [facility] Comment on above: Order Comment: Speci men Type: BLOOD SPECIMENOrdering Facility: [facility] Address: [address] [place] [address] Result Comment: Amer [place] Diabetes Association guidelines indicate that patients with HgbA1c in the range 5.7-6.4% are at increased risk for development of diabetes, and intervention by lifestyle modification may be beneficial. HgbA1c greater or equal to 6.5% is considered diagnostic of diabetes. Performed By: #### 5 5454-3 ####[facility] LABCLIA [id number] [place] [id number] [place] Lipid 1996 panelon 5 Cholesterol [Mass/Vol] 165 mg/dL Normal <200 [facility] Comment on above: Order Comment: Steviei men Type: BLOOD SPECIMENOrdering Facility: [facility] Address: [address] [place] [address] Result Comment: <200 mg/dL, Desirable 200-239 mg/dL, Borderline high >239 mg/dL, High Performed By: #### 2 4323-8, 37909-9 ####[facility] LABCLIA [id number] [address], [address] OF [facility] Cholesterol in HDL [Mass/Vol] 48 mg/dL Normal >39 [facility] Comment on above: Order Comment: Carola graham Type: BLOOD SPECIMENOrdering Facility: [facility] Address: [address] [place] [address] Result Comment: 40-5 9 mg/dL, Acceptable >59 mg/dL, High: Negative risk factor for coronary heart disease <40 mg/dL, Low: Positive risk factor for coronary heart disease Performed By: #### 2 4323-8, 95289-3 ####[facility] LABCLIA [id number] [place] [id number] [facility] [place] Cholesterol in LDL [Mass/Vol] 102 mg/dL High <100 [facility] Comment on above: Order Comment: Carola graham Type: BLOOD SPECIMENOrdering Facility: [facility] Address: [address] [place] [address] Result Comment: <100 mg/dL, Optimal 100-129 mg/dL, Near optimal/above optimal 130-159 mg/dL, Borderline high 160-189 mg/dL, High >189 mg/dL, Very high Secondary prevention optimal LDL Cholesterol levels are recommended to be <70 mg/dL LDL cholesterol is calculated using the Oneil-NIH equation. Performed By: #### 2 4323-8, 24958-4 ####[facility] LABCLIA [id number] [place] [id number] [place] Cholesterol in LDL/Cholesterol in HDL [Mass ratio] 2.13 {ratio} Normal <2.54 [facility] Comment on above: Order Comment: Speci men Type: BLOOD SPECIMENOrdering Facility: [facility] Address: [address] [place] [address] Result Comment: Gato acevedo: 1. National Cholesterol Education Program ATP III Guideline At-A-Glance Quick Desk Reference: National Heart, Lung, and Blood [place]. National Institutes of Health. 2001: NIH Publication No. 01-3305. 2. An International Atherosclerosis Society position paper: global recommendations for the management of dyslipidemia: executive summary, Atherosclerosis. 2014: 232(2):410-413. Performed By: #### 2 4323-8, ####[facility] LABIA [id number] [place] [address] [place] Cholesterol in VLDL [Mass/Vol] 13 mg/dL Normal <30 [facility] Comment on above: Order Comment: Steviei santos Type: BLOOD SPECIMENOrdering Facility: [facility] Address: [address] [place] [address] Performed By: #### 2 4323-8, ####[facility] LABIA [id number] [address] [address] [place] Cholesterol non HDL [Mass/Vol] 117 mg/dL Normal <130 [facility] Comment on above: Order Comment: Steviei men Type: BLOOD SPECIMENOrdering Facility: [facility] Address: [address] [place] [address] Result Comment: <130 mg/dL, Optimal 130-159 mg/dL, Near optimal/above optimal 160-189 mg/dL, Borderline high 190-219 mg/dL, High >219 mg/dL, Very high Secondary prevention optimal non HDL Cholesterol levels are recommended to be <100 mg/dL Performed By: #### 2 4323-8, 08199-9 ####[facility] LABCLIA [id number] [address] [place] [address] [place] Cholesterol.total/C holesterol in HDL [Mass ratio] 3.44 {ratio} Normal <5.10 [facility] Comment on above: Order Comment: Speci men Type: BLOOD SPECIMENOrdering Facility: [facility] Address: [address] [place] [address] Performed By: #### 2 4323-8, 15722-8 ####[facility] LABCLIA [id number] [address] STATES OF [facility] FASTING TIME 12 hrs Normal [facility] Comment on above: Order Comment: Speci men Type: BLOOD SPECIMENOrdering Facility: [facility] Address: [address] [place] [address] Performed By: #### 2 4323-8, 70400-9 ####[facility] LABCLIA [id number] [place] [address] [place] Triglyceride [Mass/Vol] 77 mg/dL Normal <150 [facility] Comment on above: Order Comment: Speci men Type: BLOOD SPECIMENOrdering Facility: [facility] Address: [address] [place] [address] Result Comment: <150 mg/dL, Normal 150-199 mg/dL, Borderline high 200-499 mg/dL, High >499 mg/dL, Very high Performed By: #### 2 4323-8, 21254-7 ####[facility] LABCLIA [id number] [address] [address] [place] PSA/PROSTATE SPECIFIC ANTIGE N SCREENINGon 02-19-2025 Prostate specific Ag [Mass/Vol] 0.53 ng/mL Normal <2.60 [facility] Comment on above: Order Comment: Speci men Type: BLOOD SPECIMENOrdering Facility: [facility] Address: [address] [place] [address] Result Comment: Osmel cheryle PSA test methodology used is the Electrochemiluminescence Immunoassay by [employer]. Total PSA values by differing methodologies cannot be interchanged. Performed By: #### P SAS1 ####[facility] LABCLIA [id number] ELIGIO REYNAGA [id number] [place] [address] OF [facility] CNOVon 02-06-2025 CNOV Office Visit (FRWS ) BONNY REDDING JR. ([id number]) 1955 [place] NFR Date Time Provider Department 02/06/25 10:00 AM [facility] During your visit today, we recorded the following information about you: Emily Holland MA 02/06/2025 10:05 AM Signed AMB ROOMING INTAKE FLOWSHEET DATA Patient here today for right 5th finger mallet finger. Patient denies any pain. Nestor Lino V, DO 02/06/2025 10:05 AM Signed Subjective The patient is a 69-year-old male presenting for follow-up of a finger injury. Finger Injury: - Noted improvement in finger condition. - Consistently wearing a splint 01/02. - Experiences pain when the finger is bumped. - Has arthritis in the affected joint. - Previously used Voltaren gel for arthritis pain. Musculoskeletal: (+) finger joint pain Objective There were no vitals taken for this visit. General: No acute distress. MSK/Ext: Slight extension lag in finger, able to flex and extend finger with minimal lag, no pain on movement, arthritis present in affected joint. Assessment AND Plan 1. Mallet finger of left finger(s) (M20.012) - Improving; full extension nearly achieved with splinting. - Discontinue daytime splint use; continue nighttime splinting for 2 more weeks to reinforce extension. - Educated patient that a small extension lag may persist but should not cause functional problems. - Follow-up only if problems arise. 2. Primary osteoarthritis, left hand (M19.042) - Ongoing joint pain in affected finger. - Advised use of Voltaren gel to affected joints 3 times daily for pain management. Recording using [employer] software for draft documentation of the visit was discussed with the patient/authorized phone representative; all questions welcomed and answered. Patient/authorized phone representative agreed to proceed Referring Provider: BULL MASCORRO [[id number]] Allergies As of Date: 02/06/2025 (No Known Allergies) Date Reviewed: 02/06/2025 Reviewed by: Emily Holland MA - Fully Assessed Reason for Visit: right 5th mallet finger [Other] Primary Visit Diagnosis:Mallet finger of left finger(s) [M20.012] Other Visit Diagnosis:Primary osteoarthritis, left hand [M19.042] Prescriptions as of 02/06/2025 - losartan (COZAAR) 100 mg tablet Take 1 tablet by mouth once daily. - hydroCHLOROthiazide 12.5 mg capsule Take 1 capsule by mouth once daily. - atorvastatin (LIPITOR) 20 mg tablet Take 1 tablet by mouth once daily. - amLODIPine (NORVASC) 5 mg tablet Take 1 tablet by mouth once daily. - Tadalafil (CIALIS) 20 mg tablet Take 1 tablet by mouth as needed. - OTC PRODUCT Vitamin D 500mg daily - aspirin 81 mg chewable tablet Take 2 tablets by mouth once daily. Problem List As Of Date 02/06/2025 Noted Resolved Essential hypertension, benign [I10] Obesity, Class III, BMI 40-49.9 (morbid obesity* Sleep apnea [G47.30] Benign neoplasm of colon [D12.6] 08/31/2007 11/29/2014 Tear of medial cartilage or meniscus of knee, c*03/29/2008 11/29/2014 INGUINAL HERNIA, UNILATERAL W/O GANGRENE/OBSTRU*04/30/2008 11/29/2014 SURGERY FOLLOWUP NOS [Z09] 05/02/2008 09/10/2008 UMBILICAL HERNIA W/O GANGRENE/OBSTRUCTION [K42.*05/28/2008 11/29/2014 Personal history of colonic polyps [Z86.0100] 07/20/2011 Inclusion cyst [L72.0] 01/16/2013 03/02/2013 Ganglion and cyst of synovium, tendon and bursa*03/02/2013 11/29/2014 Actinic Keratoses: 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] 07/25/2013 11/29/2014 Actinic skin damage [L57.8] 07/25/2013 Cutaneous skin tags [L91.8] 07/25/2013 11/29/2014 Viral warts, unspecified [B07.9] 09/06/2013 11/29/2014 Peripheral neuropathy (HCC) [G62.9] 11/29/2014 05/25/2016 Family history of prostate cancer in father [Z8*02/25/2015 Aortic stenosis with bicuspid valve (HCC) [I35.*03/01/2015 ELOISE positive [R76.8] 10/02/2015 Bilateral low back pain with right-sided sciati*10/02/2015 05/25/2016 Family history of psoriasis [Z84.0] 10/02/2015 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*10/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 Chronic pain of both knees [M25.561, M25.562, G*10/02/2015 05/25/2016 Numbness and tingling in both hands [R20.0, R20*10/02/2015 05/25/2016 Numbness and tingling of both legs [R20.0, R20.*10/02/2015 05/25/2016 Hyperlipidemia LDL goal <130 [E78.5] 05/04/2016 Impaired fasting glucose [R73.01] 08/27/2017 Vitamin D deficiency [E55.9] 08/27/2017 Pre-op testing [Z01.818] 11/10/2017 11/16/2017 On mechanically assisted ventilation (HCC) [Z99*11/12/2017 11/13/2017 Atelectasis [J98.11] 11/13/2017 11/16/2017 Pleural effusion [J90] 11/14/2017 11/16/2017 A-fib (HCC) [I48.91] 11/15/2017 11/16/2017 Transition of care performed with sharing of cl*11/16/2017 Coronary artery disease involving kake moore*11/16/2017 History of aortic valve replacement with biopro*11/26/2017 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 Normal [facility] CNOVon 01-23-2025 CNOV Office Visit (FAMPWS ) BONNY REDDING JR. ([id number]) 1955 M NFR Date Time Provider Department 01/23/25 8:40 AM [facility] your visit today, we recorded the following information about you: Pulse Blood pressure Weight 60/minute 124/66 145.9 kg Ye Sharma APRN.[facility] 01/23/2025 8:53 AM Signed Chief Complaint Patient presents with: Follow Up: BP AND edema HPI Bonny Redding Jr. is a 69 year old male who presents here today for above reason. Orlando Redding is a 69-year-old male with a history of HTN and varicose veins, presenting for follow-up. Started on HCTZ 12.5 mg daily at our last visit. Orlando reports no significant changes in his varicose veins, leg swelling since his last visit on December 25. He notes a sensation of tightness in his calves but denies any pain. He also denies any changes in breathing or chest pain. He has been monitoring his blood pressure at home, reporting readings consistently around 123-124/60s. He notes improvement in his blood pressure since starting his current medication regimen. He has a follow-up echocardiogram scheduled for April in relation with his cardiology care. Past medical history, appointments, medications, allergies reviewed. ROS: Cardiovascular: (-) chest pain Respiratory: (-) shortness of breath Musculoskeletal: (+) bilateral calf tightness, (-) calf pain Skin: (+) bilateral leg swelling, (-) leg redness EXAM: BP 124/66 (BP Site: Left Arm, BP Position: Sitting, BP Cuff Size: Large Adult) Pulse 60 Wt (!) 145.9 kg (321 lb 9.6 oz) SpO2 96% BMI 43.62 kg/m? General Appearance: Well appearing, alert, in no acute distress, well-hydrated, well nourished.. Lungs: Lungs clear to auscultation. No wheezing, rhonchi, rales.. Heart: RRR without murmur, gallop, or rubs. No ectopy. Extremities: 1+ pitting edema bilaterally; 19 in circumference around both calves. No erythema or warmth. No calf tenderness. Again, tortious veins present in the right lower extremity.. Assessment and Plan 1. Bilateral leg edema (R60.0) Persistent edema with more pronounced varicosities on the right leg. No signs of infection, DVT, or erythema. No associated dyspnea or chest pain. Scheduled nephrogram in April. - Recommended compression stockings during daytime; measured calf circumference suggests size XL or XXL. - Sent a message to cigarette making examiner to consider advancing echocardiogram date. - Follow-up after cardiology 2. Essential (primary) hypertension (I10) Blood pressure readings improved with current medication regimen, averaging 123-124/60s. Previous readings were in the 130s/90s. - Continue current antihypertensive therapy. - Monitor for potential hypotension and dizziness. - Scheduled labs in one month to assess electrolyte levels. Ye Sharma APRN.[employer] WR[employer] RTO in 1 months, sooner if needed. This note was partly generated using [employer] voice recognition dictation and may contain some misspelled or inaccurate words missed on review. Recording using [employer] software for draft documentation of the visit was discussed with the patient/authorized phone representative; all questions welcomed and answered. Patient/authorized phone representative agreed to proceed Allergies As of Date: 01/23/2025 (No Known Allergies) Date Reviewed: 01/23/2025 Reviewed by: Cindi Norman MA - Fully Assessed Reason for Visit: Follow Up [171] Cmt: BP AND edema Primary Visit Diagnosis:Bilateral leg edema [R60.0] Other Visit Diagnosis:Essential (primary) hypertension [I10] Prescriptions as of 01/23/2025 - losartan (COZAAR) 100 mg tablet Take 1 tablet by mouth once daily. - hydroCHLOROthiazide 12.5 mg capsule Take 1 capsule by mouth once daily. - atorvastatin (LIPITOR) 20 mg tablet Take 1 tablet by mouth once daily. - amLODIPine (NORVASC) 5 mg tablet Take 1 tablet by mouth once daily. - Tadalafil (CIALIS) 20 mg tablet Take 1 tablet by mouth as needed. - OTC PRODUCT Vitamin D 500mg daily - aspirin 81 mg chewable tablet Take 2 tablets by mouth once daily. Problem List As Of Date 01/23/2025 Noted Resolved Essential hypertension, benign [I10] Obesity, Class III, BMI 40-49.9 (morbid obesity* Sleep apnea [G47.30] Benign neoplasm of colon [D12.6] 08/31/2007 11/29/2014 Tear of medial cartilage or meniscus of knee, c*03/29/2008 11/29/2014 INGUINAL HERNIA, UNILATERAL W/O GANGRENE/OBSTRU*04/30/2008 11/29/2014 SURGERY FOLLOWUP NOS [Z09] 05/02/2008 09/10/2008 UMBILICAL HERNIA W/O GANGRENE/OBSTRUCTION [K42.*05/28/2008 11/29/2014 Personal history of colonic polyps [Z86.0100] 07/20/2011 Inclusion cyst [L72.0] 01/16/2013 03/02/2013 Ganglion and cyst of synovium, tendon and bursa*03/02/2013 11/29/2014 Actinic Keratoses: 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] 07/25/2013 11/29/2014 Actinic skin damage [L57.8] 07/25/2013 Cutaneous skin tags [L91.8] 07/25/2013 11/29/2014 (more content not included)... Normal [facility] CNOVon 01-09-2025 CNOV Office Visit (WS ) BONNY REDDING JR. ([id number]) 1955 [place] NFR Date Time Provider Department 01/09/25 11:30 AM NESTOR LINOFHWS During your visit today, we recorded the following information about you: Rose RodarteKEL 01/09/2025 11:48 AM Signed Patient presents with: Left 5th finger - ? Mallet finger: Referred by Ramos Mascorro AMB ROOMING INTAKE FLOWSHEET DATA Pain Pain Level: 4 Pain Location: Finger Description: Shooting Duration Amount of Time: 1 Duration Units: Minutes Frequency: Intermittent Intervention/Comfort measure: Other: See comment Comments: None Nestor Lino V, DO 01/09/2025 11:48 AM Signed Subjective The patient is a 69-year-old male with a history of arthritis, presenting for evaluation of left finger pain and deformity. Left Finger Pain and Deformity: - Onset after jamming the finger against a wall. - Pain localized to the distal interphalangeal joint, especially during extension. - Limited control over extension; finger drops a little bit. - No pain during flexion. - Denies noticing a lump on the finger before the injury. - Recent X-ray showed no fractures but revealed arthritis in the affected joint. Musculoskeletal: (+) left finger joint pain with extension Objective There were no vitals taken for this visit. General: No acute distress. MSK/Ext: Left distal interphalangeal joint with mild mallet deformity, partial extension lag, tenderness on extension, no pain on flexion. Imaging: - Left distal interphalangeal joint X-ray: Significant degenerative changes with joint space narrowing, subchondral cyst formation, and bone spurring consistent with arthritis. No evidence of fracture or malalignment. Assessment AND Plan 1. Injury of finger of left hand, initial encounter (S69.92XA) 2. Mallet finger of left finger(s) (M20.012) - Exam reveals limited extension with mild mallet deformity; no fractures noted on X-ray, but significant degenerative changes and osteophyte formation observed in the distal interphalangeal joint. - Likely partial tear of the extensor tendon. - Applied an Oval-8 ring splint to maintain the finger in extension, secured with Coban. - Advised patient to keep the finger in full extension if the splint needs to be removed. - Discussed the likelihood of residual stiffness due to underlying osteoarthritis. - Follow-up in 4 weeks to assess healing and splint effectiveness. Recording using [employer] software for draft documentation of the visit was discussed with the patient/authorized phone representative; all questions welcomed and answered. Patient/authorized phone representative agreed to proceed Referring Provider: BULL MASCORRO [[id number]] Allergies As of Date: 01/09/2025 (No Known Allergies) Date Reviewed: 01/09/2025 Reviewed by: Rose Rodarte MA - Fully Assessed Reason for Visit: Left 5th finger - ? Mallet finger [Other] Cmt: Referred by Ramos Mascorro Visit Diagnoses:Injury of finger of left hand, initial encounter [S69.92XA] Mallet finger of left finger(s) [M20.012] Order(s):CONSULT TO ORTHOPAEDICS [9026] Order #: [id number]: 1 Prescriptions as of 01/09/2025 - hydroCHLOROthiazide 12.5 mg capsule Take 1 capsule by mouth once daily. - losartan (COZAAR) 100 mg tablet TAKE 1 TABLET BY MOUTH EVERY DAY - atorvastatin (LIPITOR) 20 mg tablet Take 1 tablet by mouth once daily. - amLODIPine (NORVASC) 5 mg tablet Take 1 tablet by mouth once daily. - Tadalafil (CIALIS) 20 mg tablet Take 1 tablet by mouth as needed. - OTC PRODUCT Vitamin D 500mg daily - aspirin 81 mg chewable tablet Take 2 tablets by mouth once daily. Problem List As Of Date 01/09/2025 Noted Resolved Essential hypertension, benign [I10] Obesity, Class III, BMI 40-49.9 (morbid obesity* Sleep apnea [G47.30] Benign neoplasm of colon [D12.6] 08/31/2007 11/29/2014 Tear of medial cartilage or meniscus of knee, c*03/29/2008 11/29/2014 INGUINAL HERNIA, UNILATERAL W/O GANGRENE/OBSTRU*04/30/2008 11/29/2014 SURGERY FOLLOWUP NOS [Z09] 05/02/2008 09/10/2008 UMBILICAL HERNIA W/O GANGRENE/OBSTRUCTION [K42.*05/28/2008 11/29/2014 Personal history of colonic polyps [Z86.0100] 07/20/2011 Inclusion cyst [L72.0] 01/16/2013 03/02/2013 Ganglion and cyst of synovium, tendon and bursa*03/02/2013 11/29/2014 Actinic Keratoses: 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] 07/25/2013 11/29/2014 Actinic skin damage [L57.8] 07/25/2013 Cutaneous skin tags [L91.8] 07/25/2013 11/29/2014 Viral warts, unspecified [B07.9] 09/06/2013 11/29/2014 Peripheral neuropathy (HCC) [G62.9] 11/29/2014 05/25/2016 Family history of prostate cancer in father [Z8*02/25/2015 Aortic stenosis with bicuspid valve (HCC) [I35.*03/01/2015 ELOISE positive [R76.8] 10/02/2015 Bilateral low back pain with right-sided sciati*10/02/2015 05/25/2016 Family history of psoriasis [Z84.0] 10/02/2015 Secondary (more content not included)... Normal [facility] CNOVon 01-08-2025 CNOV Office Visit (WSTR ) BNONY REDDING JR. ([id number]) 1955 M NFR Date Time Provider Department 01/08/25 12:15 PM BULL MASCORRO [facility] During your visit today, we recorded the following information about you: Temperature Pulse Respiration Blood pressure 97.8 degrees 64/minute 16/minute 124/68 Weight 144.6 kg Bull Mascorro APRN.BOARD WRITER 01/08/2025 12:04 PM Signed Subjective HPI Nontoxic-appearing 69-year-old male presents urgent care chief complaint left finger injury. Patient states 6 days ago he stubbed his fifth digit into the wall. This resulted in discomfort. Presents today for evaluation. OTC medications none recently. Pain with increase range of motion improved by rest. No surgeries fractures previously. Left hand dominant. Past medical history prescription medications allergies reviewed. .Patient presents with: Finger Injury: left pinky finger pain x 6 days, stoved against wall PAST MEDICAL HISTORY Diagnosis Date Aortic stenosis with bicuspid valve (HCC) 03/01/2015 Benign neoplasm of colon Chronic cough 05/16/2020 No resolution when ACEi stopped. Negative methecholine challenge 09/2020. Coronary artery disease Essential hypertension, benign 15 yr Obesity, unspecified Other and unspecified hyperlipidemia 15 yrs Peripheral neuropathy 11/29/2014 Personal history of colonic polyps Snoring Unspecified sleep apnea 2007 uses CPAP Vitamin D deficiency 2017 PAST SURGICAL HISTORY Procedure Laterality Date CATARACT EXTRACTION HX 2014 COLONOSCOPY FLX DX W/COLLJ SPEC WHEN PFRMD 08/31/2007 Colonoscopy COLONOSCOPY FLX DX W/COLLJ SPEC WHEN PFRMD N/A 10/12/2016 COLONOSCOPY W/BIOPSY SINGLE/MULTIPLE 07/20/2011 EXC LESION TDN SHTH/JT CAPSL HAND/FNGR 02/24/2013 Excision ganglion cyst left middle finger HEART SURGERY HX LAPAROSCOPY SURG RPR INITIAL INGUINAL HERNIA 05/17/2008 RIGHT PAST SURGICAL HISTORY OF tonsils and adenoids removed PAST SURGICAL HISTORY OF hernia PAST SURGICAL HISTORY OF 04/18/2008 right meniscus repair PAST SURGICAL HISTORY OF 07/2010 right foot surgery PAST SURGICAL HISTORY OF Right 07/28/2022 Right carpometacarpal arthroplasty with flexor carpi radialis interposition, first dorsal compartment tenosynovectomy right partial trapezodi excision REPAIR ROTATOR CUFF,ACUTE Right 05/25/2024 WC RPR UMBILICAL HRNA 5 YRS/> REDUCIBLE 05/17/2008 SEPTOPLASTY/SUBMUCOUS RESECJ W/WO CARTILAGE GRF 2004 Septoplasty TOTAL KNEE REPLACEMENT Left 11/13/2022 Dr. Jackson Mera TOTAL KNEE REPLACEMENT Right 02/19/2023 ALLERGIES Patient has no known allergies. MEDICATIONS hydroCHLOROthiazide 12.5 mg capsule Take 1 capsule by mouth once daily. losartan (COZAAR) 100 mg tablet TAKE 1 TABLET BY MOUTH EVERY DAY atorvastatin (LIPITOR) 20 mg tablet Take 1 tablet by mouth once daily. amLODIPine (NORVASC) 5 mg tablet Take 1 tablet by mouth once daily. Tadalafil (CIALIS) 20 mg tablet Take 1 tablet by mouth as needed. OTC PRODUCT Vitamin D 500mg daily aspirin 81 mg chewable tablet Take 2 tablets by mouth once daily. FAMILY HISTORY Problem Relation Age of Onset Alzheimer's Disease Mother age 76-COPD COPD Mother other (Hypertension, Hyperlipidemia) Mother Coronary Artery Disease Father 60 valve replacement Prostate Cancer Father other (PARKINSON) Father Prostate Cancer Paternal Uncle Prostate Cancer Maternal Grandfather Hypertension Sister Social History Tobacco Use Smoking status: Never Smokeless tobacco: Never Tobacco comments: ETS in childhood home, motrher smoker. Vaping Use Vaping status: Never Used Substance Use Topics Alcohol use: No Drug use: No BP 124/68 Pulse 64 Temp 36.6 ?C (97.8 ?F) Resp 16 Wt (!) 144.6 kg (318 lb 12.6 oz) SpO2 95% BMI 43.24 kg/m? Review of Systems Constitutional: Negative for chills, fever and malaise/fatigue. Musculoskeletal: Positive for joint pain. Negative for back pain, falls, myalgias and neck pain. Neurological: Negative for dizziness, loss of consciousness, weakness and headaches. Objective Physical Exam Constitutional: General: He is not in acute distress. Appearance: He is not toxic-appearing. HENT: Head: Normocephalic. Nose: Nose normal. Eyes: Pupils: Pupils are equal, round, and reactive to light. Cardiovascular: Rate and Rhythm: Normal rate. Pulmonary: Effort: Pulmonary effort is normal. No respiratory distress. Musculoskeletal: Cervical back: Normal range of motion. Comments: No pain with palpation over metacarpals. Pain with palpation over DIP joint fifth digit. More laterally. No pain with palpation over MCP or PIP joint. Neurovascular intact. Mild weakness with extension of DIP joint. Neurovascular intact. Skin: General: Skin is warm and dry. Neurological: General: No focal deficit present. Mental Status: He is alert. (more content not included)... Normal [facility] XR DIGIT 3V FRONTAL/LAT/OBL LTon 01-08-2025 XR DIGIT 3V FRONTAL/LAT/OBL LT * * *Final Report* * * DATE OF EXAM: Jan 08 2025 11:50AM WOX [id number] - XR DIGIT 3V FRONTAL/LAT/OBL LT / PROCEDURE REASON: Injury of finger of left hand, initial encounter * * * * Physician Interpretation * * * * EXAM TITLE: XR DIGIT 3V FRONTAL/LAT/OBL LT EXAM DATE/TIME: 01/08/2025 11:50 AM COMPARISON: None. CLINICAL INDICATION/HISTORY: Pain. TECHNIQUE: PA, lateral and oblique views of the fifth digit of the left hand are presented. FINDINGS: No acute fractures or subluxations are noted. There is significant DIP joint space narrowing with cystic and osteophyte formation. PIP joint space narrowing is also noted. The mineralization of the bones is normal. There is soft tissue swelling/prominence along the DIP joint. Others: Degenerative changes involving the first carpometacarpal joint. 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 Paper Pattern Inspector: PSCMeseret Transcribe Date/Time: Jan 08 2025 11:53A Dictated by : MARCIA SALDAÑA MD This examination was interpreted and the report reviewed and electronically signed by: MARCIA SALDAÑA MD on Jan 08 2025 12:00PM EST DIVISION OF RADIOLOGY * * *Final Report* * * DATE OF EXAM: Jan 08 2025 11:50AM WOX [id number] - XR DIGIT 3V FRONTAL/LAT/OBL LT / PROCEDURE REASON: Injury of finger of left hand, initial encounter * * * * Physician Interpretation * * * * EXAM TITLE: XR DIGIT 3V FRONTAL/LAT/OBL LT EXAM DATE/TIME: 01/08/2025 11:50 AM COMPARISON: None. CLINICAL INDICATION/HISTORY: Pain. TECHNIQUE: PA, lateral and oblique views of the fifth digit of the left hand are presented. FINDINGS: No acute fractures or subluxations are noted. There is significant DIP joint space narrowing with cystic and osteophyte formation. PIP joint space narrowing is also noted. The mineralization of the bones is normal. There is soft tissue swelling/prominence along the DIP joint. Others: Degenerative changes involving the first carpometacarpal joint. DIVISION OF RADIOLOGY Provider, [facility] Jerald [facility] - 01/08/2025 * * *Final Report* * * DATE OF EXAM: Jan 08 2025 11:50AM WOX [id number] - XR DIGIT 3V FRONTAL/LAT/OBL LT / PROCEDURE REASON: Injury of finger of left hand, initial encounter * * * * Physician Interpretation * * * * EXAM TITLE: XR DIGIT 3V FRONTAL/LAT/OBL LT EXAM DATE/TIME: 01/08/2025 11:50 AM COMPARISON: None. CLINICAL INDICATION/HISTORY: Pain. TECHNIQUE: PA, lateral and oblique views of the fifth digit of the left hand are presented. FINDINGS: No acute fractures or subluxations are noted. There is significant DIP joint space narrowing with cystic and osteophyte formation. PIP joint space narrowing is also noted. The mineralization of the bones is normal. There is soft tissue swelling/prominence along the DIP joint. Others: Degenerative changes involving the first carpometacarpal joint. 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 Paper Pattern Inspector: JAMEL Transcribe Date/Time: Jan 08 2025 11:53A Dictated by : MARCIA SALDAÑA MD This examination was interpreted and the report reviewed and electronically signed by: MARCIA SALDAÑA MD on Jan 08 2025 12:00PM [facility] Radiology Study observation (narrative) [facility] XR Finger - left AP and Late ral and obliqueOrdered By: Ccf Provider on 01-08-2025 [facility] CNOVon 12-25-2024 CNOV Office Visit (FAMPWS ) BONNY REDDING JR. ([id number]) 1955 M NFR Date Time Provider Department 12/25/24 11:40 AM YE SHARMA FAMPWS During your visit today, we recorded the following information about you: Pulse Respiration Blood pressure Weight 60/minute 20/minute 126/94 145.8 kg Ye Sharma APRN.BOARD WRITER 12/25/2024 12:00 PM Signed Chief Complaint Patient presents with: Leg Edema HPI Bonny Redding Jr. is a 69 year old male who presents here today for above reason. Monitoring b/l leg edema R>L. Noticing a sock line at the end of the day. Calves feel tighter. Ongoing for the past two months. Orlando Redding is a 69-year-old male with a history of a prosthetic aortic valve and HTN, presenting with bilateral calf swelling and heaviness. Orlando reports a 1.5 month history of increased bilateral calf swelling and heaviness, with the right calf appearing larger than the left. He has noticed indentations from his socks and tightness in his jeans around the calf area. The swelling is more pronounced from the mid-calf downwards and is associated with a tingling sensation in both legs. He denies any pain, abnormal warmth, or redness in the calves. Orlando has a history of a prosthetic aortic valve and is currently on losartan 100 mg daily and amlodipine 5 mg daily, which was started in April to manage his blood pressure. He denies any chest pain, orthopnea, or significant weight gain. He has a sedentary lifestyle due to a part-time [id number] job, which involves prolonged periods of sitting. He also has a history of decreased activity levels following a shoulder dislocation last summer, which required surgery in May. He had an echocardiogram in April, which did not show any signs of heart failure, and he has a follow-up echocardiogram scheduled for April. He denies any increase in dyspnea or palpitations since his last cardiology visit. Past medical history, appointments, medications, allergies reviewed. EXAM: BP 126/94 (BP Site: Left Arm, BP Position: Sitting, BP Cuff Size: Large Adult) Pulse 60 Resp 20 Wt (!) 145.8 kg (321 lb 6.4 oz) BMI 43.59 kg/m? General Appearance: Well appearing, alert, in no acute distress, well-hydrated, well nourished. and Morbidly obese. Lungs: Lungs clear to auscultation. No wheezing, rhonchi, rales.. Heart: RRR without murmur, gallop, or rubs. No ectopy. Extremities: Right LE calf measuring 19.25 in, there is no erythema, tenderness or warmth to the calf. +1-2 pitting edema mid tib-fib to the ankle; Left LE calf measuring 19 in.there is no erythema, tenderness or warmth to the calf. +1-2 pitting edema mid tib-fib to the ankle; Tortuous varicose vein present on the right inner calf. Assessment and Plan 1. Essential hypertension, benign Currently managed with Losartan 100 mg daily and Amlodipine 5 mg daily. Recent BP readings show elevated diastolic pressure at 94 mmHg. Amlodipine initiated in April; potential side effect of peripheral edema noted, though typically more pronounced at higher doses. - Initiated Hydrochlorothiazide 12.5 mg once daily to address elevated BP and assist with fluid reduction in lower extremities. - Advised patient to monitor BP at home and report any significant changes. 2. Bilateral leg edema Edema in both legs, more pronounced in the right leg, with a difference of 0.25 inches in calf circumference (right calf 19.25 inches, left calf 19 inches). No significant warmth or erythema noted. Edema may be multifactorial, including side effects of Amlodipine, prolonged sitting, and varicose veins. Recent echocardiogram in April showed no signs of heart failure. - Initiated Hydrochlorothiazide 12.5 mg once daily. - Advised patient to avoid prolonged sitting and consider use of compression stockings if edema worsens. - Monitor for signs of DVT, including significant unilateral leg swelling, redness, warmth, and pain. - Follow-up in four weeks to assess response to treatment and reevaluate need for further diagnostic testing, such as an echocardiogram. 3. Presence of prosthetic heart valve Patient has a history of a prosthetic aortic valve. Recent echocardiogram in April showed no signs of heart failure. No current symptoms of chest pain or increased shortness of breath. Weight has remained stable within 4-5 pounds since last April. - Advised patient to update cigarette making examiner on current symptoms and treatment plan. - Consideration for earlier echocardiogram if recommended by cigarette making examiner. Ye Sharma APRN.BOARD WRITER RTO in 4 weeks, sooner if needed. This note was partly generated using [employer] voice recognition dictation and may contain some misspelled or inaccurate words missed on review. Recording using [employer] software for draft documentation of the visit was discussed with the patient/authorized representati (more content not included)... Normal [facility] CNOVon 12-01-2024 CNOV Office Visit (UCWSTR ) BONNY REDDING JR. ([id number]) 1955 M NFR Date Time Provider Department 12/01/24 9:00 AM [facility] During your visit today, we recorded the following information about you: Pulse Respiration Blood pressure Weight 55/minute 20/minute 134/80 144.5 kg Luz Costa, OTILIA.BOARD WRITER 12/01/2024 9:28 AM Signed [facility] Subjective Bonny Redding Jr. is a 68 year old male. Patient presents with: Earwax HPI Ear Discomfort and Blockage: - Right ear feels blocked up. - History of earwax buildup, particularly affecting the right hearing aid. - Previous episode of ear infection treated with otic drops for 10 days; no significant improvement noted. - Denies allergies to antibiotics. Review of Systems Ears/Nose/Mouth/Throat: (+) ear pressure (bilateral) Skin: (+) dryness (around ear) Objective BP 134/80 Pulse (!) 55 Resp 20 Wt (!) 144.5 kg (318 lb 9 oz) SpO2 97% BMI 43.21 kg/m? Physical Exam General: No acute distress. HEENT: Right ear canal erythematous and bulging, no cerumen impaction; left ear canal with cerumen impaction; dry skin noted around external ear. {1. Impacted cerumen, left ear (H61.22) - Cerumen impaction noted in the left ear. - Ordered ear irrigation to remove the impacted cerumen. 2. Acute suppurative otitis media of right ear (H66.001) - Examination reveals erythema and bulging of the tympanic membrane in the right ear, consistent with acute suppurative otitis media. - Initiated amoxicillin orally twice daily for 7 days. - Advised follow-up with ENT specialist to ensure resolution of infection. left TM was visible. There is still some partial wax occlusion. Patient tolerated well. TM is within normal limits. and Recording using ambient [employer] software for draft documentation of the visit was discussed with the patient/authorized phone representative; all questions welcomed and answered. Patient/authorized phone representative agreed to proceed MDM Procedures Allergies As of Date: 12/01/2024 (No Known Allergies) Date Reviewed: 12/01/2024 Reviewed by: Marilyn Car LPN - Fully Assessed Reason for Visit: Earwax [1178] Visit Diagnoses:Impacted cerumen, left ear [H61.22] Acute suppurative otitis media of right ear [H66.001] Order(s):amoxicillin (AMOXIL) 875 mg tabletTake 1 tablet by mouth two times a day for 7 days.Disp: 14 tabletRfl: 0 Prescriptions as of 12/01/2024 - amoxicillin (AMOXIL) 875 mg tablet Take 1 tablet by mouth two times a day for 7 days. - losartan (COZAAR) 100 mg tablet TAKE 1 TABLET BY MOUTH EVERY DAY - atorvastatin (LIPITOR) 20 mg tablet Take 1 tablet by mouth once daily. - amLODIPine (NORVASC) 5 mg tablet Take 1 tablet by mouth once daily. - Tadalafil (CIALIS) 20 mg tablet Take 1 tablet by mouth as needed. - OTC PRODUCT Vitamin D 500mg daily - aspirin 81 mg chewable tablet Take 2 tablets by mouth once daily. Problem List As Of Date 12/01/2024 Noted Resolved Essential hypertension, benign [I10] Obesity, Class III, BMI 40-49.9 (morbid obesity* Sleep apnea [G47.30] Benign neoplasm of colon [D12.6] 08/31/2007 11/29/2014 Tear of medial cartilage or meniscus of knee, c*03/29/2008 11/29/2014 INGUINAL HERNIA, UNILATERAL W/O GANGRENE/OBSTRU*04/30/2008 11/29/2014 SURGERY FOLLOWUP NOS [Z09] 05/02/2008 09/10/2008 UMBILICAL HERNIA W/O GANGRENE/OBSTRUCTION [K42.*05/28/2008 11/29/2014 Personal history of colonic polyps [Z86.0100] 07/20/2011 Inclusion cyst [L72.0] 01/16/2013 03/02/2013 Ganglion and cyst of synovium, tendon and bursa*03/02/2013 11/29/2014 Actinic Keratoses: 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] 07/25/2013 11/29/2014 Actinic skin damage [L57.8] 07/25/2013 Cutaneous skin tags [L91.8] 07/25/2013 11/29/2014 Viral warts, unspecified [B07.9] 09/06/2013 11/29/2014 Peripheral neuropathy (HCC) [G62.9] 11/29/2014 05/25/2016 Family history of prostate cancer in father [Z8*02/25/2015 Aortic stenosis with bicuspid valve [I35.0, Q23*03/01/2015 ELOISE positive [R76.8] 10/02/2015 Bilateral low back pain with right-sided sciati*10/02/2015 05/25/2016 Family history of psoriasis [Z84.0] 10/02/2015 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*10/02/2015 Chronic pain of both knees [M25.561, M25.562, G*10/02/2015 05/25/2016 Numbness and tingling in both hands [R20.0, R20*10/02/2015 05/25/2016 Numbness and tingling of both legs [R20.0, R20.*10/02/2015 05/25/2016 Hyperlipidemia LDL goal <130 [E78.5] 05/04/2016 Impaired fasting glucose [R73.01] 08/27/2017 Vitamin D deficiency [E55.9] 08/27/2017 Pre-op testing [Z01.818] 11/10/2017 11/16/2017 On mechanically assisted ventilation (HCC) [Z99*11/12/2017 11/13/2017 Atelectasis [J98.11] 11/13/2017 11/16/2017 Pleural effusion [J90] 11/14/2017 11/16/2017 A-fib (HCC) [I48.91] 11/15/2017 11/16/2017 Transition of care performed with sharing of cl*11/16 (more content not included)... Normal [facility] CNOVon 09-01-2024 CNOV Office Visit (UCWSTR ) BONNY REDDING JR. ([id number]) 1955 M NFR Date Time Provider Department 09/01/24 8:00 AM KATHYDESHAWN PARRY UCWSTR During your visit today, we recorded the following information about you: Temperature Pulse Respiration Blood pressure 97.6 degrees 58/minute 20/minute 135/84 Weight 145.2 kg Deshawn Griggs PA-C 09/01/2024 9:00 AM Signed This note was created using [employer]. Subjective Bonny Redding Jr. is a 68 year old male. Patient is a 68-year-old male who complains of left ear and sore throat that he has been experiencing for the past 3 days. Patient reports no significant congestion and denies sinus pressure, right ear pain or cough. Patient denies fever, chills or myalgia. Patient believes that he likely had COVID-19 approximately 1 month ago as he and his developed fever, chills and bodyaches. Patient states that his did lose her sensation of taste and smell but he did not. Sore Throat Associated symptoms include ear pain. Review of Systems HENT: Positive for ear pain and sore throat. All other systems reviewed and are negative. Objective BP 135/84 Pulse (!) 58 Temp 36.4 ?C (97.6 ?F) Resp 20 Wt (!) 145.2 kg (320 lb 1.7 oz) SpO2 95% BMI 43.41 kg/m? Physical Exam Vitals and nursing note reviewed. Constitutional: Appearance: Normal appearance. He is normal weight. HENT: Head: Normocephalic and atraumatic. Right Ear: Tympanic membrane, ear canal and external ear normal. Left Ear: Tympanic membrane, ear canal and external ear normal. Nose: Nose normal. Mouth/Throat: Mouth: Mucous membranes are moist. Pharynx: Oropharynx is clear. Eyes: Extraocular Movements: Extraocular movements intact. Conjunctiva/sclera: Conjunctivae normal. Pupils: Pupils are equal, round, and reactive to light. Cardiovascular: Rate and Rhythm: Normal rate and regular rhythm. Pulses: Normal pulses. Heart sounds: Normal heart sounds. Pulmonary: Effort: Pulmonary effort is normal. Breath sounds: Normal breath sounds. Musculoskeletal: Cervical back: Normal range of motion and neck supple. Skin: General: Skin is warm and dry. Capillary Refill: Capillary refill takes less than 2 seconds. Neurological: General: No focal deficit present. Mental Status: He is alert and oriented to person, place, and time. Psychiatric: Mood and Affect: Mood normal. Behavior: Behavior normal. Thought Content: Thought content normal. Judgment: Judgment normal. Assessment and Plan Physical exam findings as noted above. Rapid strep test is negative. Patient was provided with a prescription for prednisone 20 mg and supportive care instructions were discussed. Patient verbalizes clear understanding of same. CLINICAL IMPRESSION: Acute Pharyngitis ASSESSMENT/PLAN: 1. Sore throat - ICD9: 462, ICD10: J02.9 (primary diagnosis) - STREP A MOLECULAR (POC) 2. Acute pharyngitis, unspecified etiology - ICD9: 462, ICD10: J02.9 - PREDNISONE 20 MG TABLET Deshawn Griggs PA-C Allergies As of Date: 09/01/2024 (No Known Allergies) Date Reviewed: 09/01/2024 Reviewed by: Olesya Randall MA - Fully Assessed Reason for Visit: Sore Throat [200] Cmt: L ear pain x3 days Primary Visit Diagnosis:Sore throat [J02.9] Other Visit Diagnosis:Acute pharyngitis, unspecified etiology [J02.9] Order(s):STREP A MOLECULAR (POC) [3250475] Order #: [id number]. #:[id number] predniSONE (DELTASONE) 20 mg tabletTake 1 tablet by mouth two times a day for 5 days.Disp: 10 tabletRfl: 0 Prescriptions as of 09/01/2024 - predniSONE (DELTASONE) 20 mg tablet Take 1 tablet by mouth two times a day for 5 days. - atorvastatin (LIPITOR) 20 mg tablet Take 1 tablet by mouth once daily. - amLODIPine (NORVASC) 5 mg tablet Take 1 tablet by mouth once daily. - Tadalafil (CIALIS) 20 mg tablet Take 1 tablet by mouth as needed. - losartan (COZAAR) 100 mg tablet Take 1 tablet by mouth once daily. - Amoxicillin 500 mg tablet Take 4 pills day of dental appointment - OTC PRODUCT Vitamin D 500mg daily - aspirin 81 mg chewable tablet Take 2 tablets by mouth once daily. Problem List As Of Date 09/01/2024 Noted Resolved Essential hypertension, benign [I10] Obesity, Class III, BMI 40-49.9 (morbid obesity* Sleep apnea [G47.30] Benign neoplasm of colon [D12.6] 08/31/2007 11/29/2014 Tear of medial cartilage or meniscus of knee, c*03/29/2008 11/29/2014 INGUINAL HERNIA, UNILATERAL W/O GANGRENE/OBSTRU*04/30/2008 11/29/2014 SURGERY FOLLOWUP NOS [Z09] 05/02/2008 09/10/2008 UMBILICAL HERNIA W/O GANGRENE/OBSTRUCTION [K42.*05/28/2008 11/29/2014 Personal history of colonic polyps [Z86.0100] 07/20/2011 Inclusion cyst [L72.0] 01/16/2013 03/02/2013 Ganglion and cyst of synovium, tendon and bursa*03/02/2013 11/29/2014 Actinic Keratoses: 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 Normal [facility] STREP A MOLECULAR (POC)on Procedural Control Valid [facility] Strep A (POCT) Negative Negative [facility] CNOVon 08-21-2024 CNOV Office Visit (FAMPWS ) BONNY REDDING JR. ([id number]) 1955 M NFR Date Time Provider Department 08/21/24 10:00 AM SHAYY SINGH FAMPWS During your visit today, we recorded the following information about you: Pulse Respiration Blood pressure Weight 97/minute 16/minute 160/90 143.8 kg Shayy Singh APRN.BOARD WRITER 08/21/2024 9:53 AM Signed Get repeat fasting labs prior to next visit Continue to take current medications Continue to eat a well balanced diet Consult placed for general surgery for colonoscopy Follow up in 6 months Shayy Singh APRN.BOARD WRITER 08/21/2024 10:26 AM Signed This is a 68 year old male who presents today with: Patient presents with: 6 Month Exam HISTORY OF PRESENT ILLNESS: Bonny Redding Jr. is a 68 year old male. Patient presents with: 6 Month Exam 6 month follow up Lipids/glucose: Taking Atorvastatin daily and aspirin 81 mg daily. A1C went from 5.7 to 5.8. Watching diet: Reports he needs to do more. HTN: Taking losartan 100 mg daily. Not currently checking blood pressure at home. Denies chest pain, palpitations, dizziness, or edema. Following with cardiology, Dr. Lake for nonwork rheumatic aortic valve stenosis, aortic valve replacement, bradycardia.Pt hx of surgical aortic valve replacement with 27 mm Silvia-Saleh valve by Dr. Spaulding 11/2017 JULIET: Using CPAP, tolerating well. Receives supplies through Status Overload. Had right shoulder surgery in March 2024. ED: Taking Cialis 20 mg daily as needed. PSA: Would like evaluated Colonoscopy: Due at this time. Vaccines: Does not want at this time PAST MEDICAL HISTORY: PAST MEDICAL HISTORY Diagnosis Date Aortic stenosis with bicuspid valve 03/01/2015 Benign neoplasm of colon Chronic cough 05/16/2020 No resolution when ACEi stopped. Negative methecholine challenge 09/2020. Coronary artery disease Essential hypertension, benign 15 yr Obesity, unspecified Other and unspecified hyperlipidemia 15 yrs Peripheral neuropathy 11/29/2014 Personal history of colonic polyps Snoring Unspecified sleep apnea 2007 uses CPAP Vitamin D deficiency 2018 PAST SURGICAL HISTORY Procedure Laterality Date CATARACT EXTRACTION HX 2014 COLONOSCOPY FLX DX W/COLLJ SPEC WHEN PFRMD 08/31/2007 Colonoscopy COLONOSCOPY FLX DX W/COLLJ SPEC WHEN PFRMD N/A 10/12/2016 COLONOSCOPY W/BIOPSY SINGLE/MULTIPLE 07/20/2011 EXC LESION TDN SHTH/JT CAPSL HAND/FNGR 02/24/2013 Excision ganglion cyst left middle finger HEART SURGERY HX LAPAROSCOPY SURG RPR INITIAL INGUINAL HERNIA 05/17/2008 RIGHT PAST SURGICAL HISTORY OF tonsils and adenoids removed PAST SURGICAL HISTORY OF hernia PAST SURGICAL HISTORY OF 04/18/2008 right meniscus repair PAST SURGICAL HISTORY OF 07/2010 right foot surgery PAST SURGICAL HISTORY OF Right 07/28/2022 Right carpometacarpal arthroplasty with flexor carpi radialis interposition, first dorsal compartment tenosynovectomy right partial trapezodi excision RPR UMBILICAL HRNA 5 YRS/> REDUCIBLE 05/17/2008 SEPTOPLASTY/SUBMUCOUS RESECJ W/WO CARTILAGE GRF 2004 Septoplasty TOTAL KNEE REPLACEMENT Left 11/13/2022 Dr. Jackson Mera TOTAL KNEE REPLACEMENT Right 02/19/2023 ALLERGIES Patient has no known allergies. MEDICATIONS Current Outpatient Medications Medication Sig skktzwpn-mwswhiiuu-bkqvxlvuwb sone (CORTISPORIN) 3.5-10,000-1 mg/mL-unit/mL-% otic suspension Use 3 Drops in the right ear four times daily. atorvastatin (LIPITOR) 20 mg tablet Take 1 tablet by mouth once daily. amLODIPine (NORVASC) 5 mg tablet Take 1 tablet by mouth once daily. Tadalafil (CIALIS) 20 mg tablet Take 1 tablet by mouth as needed. losartan (COZAAR) 100 mg tablet Take 1 tablet by mouth once daily. Amoxicillin 500 mg tablet Take 4 pills day of dental appointment OTC PRODUCT Vitamin D 500mg daily aspirin 81 mg chewable tablet Take 2 tablets by mouth once daily. No current facility-administered medications for this visit. FAMILY HISTORY Problem Relation Age of Onset Alzheimer's Disease Mother age 76-COPD COPD Mother other (Hypertension, Hyperlipidemia) Mother Coronary Artery Disease Father 60 valve replacement Prostate Cancer Father other (PARKINSON) Father Prostate Cancer Paternal Uncle Prostate Cancer Maternal Grandfather Hypertension Sister Social History Tobacco Use Smoking status: Never Smokeless tobacco: Never Tobacco comments: ETS in childhood home, motrher smoker. Vaping Use Vaping status: Never Used Substance Use Topics Alcohol use: No Drug use: No REVIEW OF SYSTEMS GENERAL: No weight loss, malaise or fevers/chills HEENT: Negative for frequent or significant headaches, No changes in hearing or vision. NECK: Negative for lumps, goiter, pain and significant neck swelling RESPIRATORY: Negative for cough, hemoptysis, wheezing, dyspnea or shortness of breath CARDIOVASCULA (more content not included)... Normal [facility] Comprehensive metabolic 2000 panelon 08-16-2024 Albumin [Mass/Vol] 4.2 g/dL Normal 3.9-4.9 [facility] Comment on above: Order Comment: Speci men Type: BLOOD SPECIMENOrdering Facility: [facility] Address: [address] [place] [address] Performed By: #### 2 4331-1, 53608-8 ####[facility] LABCLIA [id number] [address] [address] [place] ALP [Catalytic activity/Vol] 99 U/L Normal 38-113 [facility] Comment on above: Order Comment: Speci men Type: BLOOD SPECIMENOrdering Facility: [facility] Address: [address] [place] [address] Performed By: #### 2 4331-1, ####[facility] LABCLIA [id number] [place] [address] [place] ALT [Catalytic activity/Vol] 36 U/L Normal 10-54 [facility] Comment on above: Order Comment: Speci men Type: BLOOD SPECIMENOrdering Facility: [facility] Address: [address] [place] [address] Performed By: #### 2 4331-, ####[facility] LABCLIA [id number] [place] [id number] [place] Anion gap [Moles/Vol] 11 mmol/L Normal 8-15 [facility] Comment on above: Order Comment: Speci men Type: BLOOD SPECIMENOrdering Facility: [facility] Address: [address] [place] [address] Performed By: #### 2 4331-, ####[facility] LABCLIA [id number] [place] [id number] [place] AST [Catalytic activity/Vol] 26 U/L Normal 14-40 [facility] Comment on above: Order Comment: Speci men Type: BLOOD SPECIMENOrdering Facility: [facility] Address: [address] [place] [address] Performed By: #### 2 4331-1, 19109-5 ####[facility] LABCLIA [id number] [place] [id number] [place] Bilirubin [Mass/Vol] 1.2 mg/dL Normal 0.2-1.3 [facility] Comment on above: Order Comment: Speci men Type: BLOOD SPECIMENOrdering Facility: [facility] Address: [address] [place] [address] Performed By: #### 2 4331-1, ####[facility] LABCLIA [id number] [place] [address] [place] Calcium [Mass/Vol] 9.3 mg/dL Normal 8.5-10.2 [facility] Comment on above: Order Comment: Speci men Type: BLOOD SPECIMENOrdering Facility: [facility] Address: [address] [place] [address] Performed By: #### 2 4331-1, ####[facility] LABCLIA [id number] [place] [address] [place] Chloride [Moles/Vol] 109 mmol/L High 98-107 [facility] Comment on above: Order Comment: Speci men Type: BLOOD SPECIMENOrdering Facility: [facility] Address: [address] [place] [address] Performed By: #### 2 4331-1, ####[facility] LABCLIA [id number] [place] [address] [place] CO2 [Moles/Vol] 22 mmol/L Normal 22-30 [facility] Comment on above: Order Comment: Speci men Type: BLOOD SPECIMENOrdering Facility: [facility] Address: [address] [place] [address] Performed By: #### 2 4331-1, ####[facility] LABCLIA [id number] [place] [id number] [place] Creatinine [Mass/Vol] 1.18 mg/dL Normal 0.73-1.22 [facility] Comment on above: Order Comment: Speci men Type: BLOOD SPECIMENOrdering Facility: [facility] Address: [address] [place] [address] Performed By: #### 2 4331-1, 80705-4 ####[facility] LABIA [id number] [place] [address] [place] Creatinine and Glomerular filtration rate.predicted panel (S/P/Bld) 68 mL/min/1.73m??? Normal >=60 [facility] Comment on above: Order Comment: Carola graham Type: BLOOD SPECIMENOrdering Facility: [facility] Address: [address] [place] [address] Result Comment: Araceli mated Glomerular Filtration Rate (eGFR) is calculated using the 2020 CKD-EPI creatinine equation. This equation utilizes serum creatinine, sex, and age as parameters. The creatinine assay has traceable calibration to isotope dilution-mass spectrometry. Refer to KDIGO guidelines for clinical interpretation. In patients with unstable renal function, e.g. those with acute kidney injury, the eGFR may not accurately reflect actual GFR. Performed By: #### 2 4331-1, 39587-3 ####[facility] LABIA [id number] [place] [id number] [place] Glucose [Mass/Vol] 119 mg/dL High 74-99 [facility] Comment on above: Order Comment: Carola graham Type: BLOOD SPECIMENOrdering Facility: [facility] Address: [address] [place] [address] Result Comment: The [place] Diabetes Association (ADA) provides guidance for cutoff values for fasting glucose and random glucose. The ADA defines fasting as no caloric intake for at least 8 hours. Fasting plasma glucose results between 100 to 125 mg/dL indicate increased risk for diabetes (prediabetes). Fasting plasma glucose results greater than or equal to 126 mg/dL meet the criteria for diagnosis of diabetes. In the absence of unequivocal hyperglycemia, results should be confirmed by repeat testing. In a patient with classic symptoms of hyperglycemia or hyperglycemic crisis, random plasma glucose results greater than or equal to 200 mg/dL meet the criteria for diagnosis of diabetes. Reference: Standards of Medical Care in Diabetes 2016, [place] Diabetes Association. Diabetes Care. 2016.39(Suppl 1). Performed By: #### 2 4331-1, ####[facility] LABCLIA [id number] [address] [address] [place] Potassium [Moles/Vol] 4.4 mmol/L Normal 3.7-5.1 [facility] Comment on above: Order Comment: Speci men Type: BLOOD SPECIMENOrdering Facility: [facility] Address: [address] [place] [address] Performed By: #### 2 433-, ####[facility] LABCLIA [id number] [place] [address] [place] Protein [Mass/Vol] 6.9 g/dL Normal 6.3-8.0 [facility] Comment on above: Order Comment: Speci men Type: BLOOD SPECIMENOrdering Facility: [facility] Address: [address] [place] [address] Performed By: #### 2 433-, ####[facility] LABCLIA [id number] [place] [address] [place] Sodium [Moles/Vol] 142 mmol/L Normal 136-144 [facility] Comment on above: Order Comment: Speci men Type: BLOOD SPECIMENOrdering Facility: [facility] Address: [address] [place] [address] Performed By: #### 2 433-, ####[facility] LABCLIA [id number] [address] [address] [place] Urea nitrogen [Mass/Vol] 19 mg/dL Normal 9-24 [facility] Comment on above: Order Comment: Speci men Type: BLOOD SPECIMENOrdering Facility: [facility] Address: [address] [place], [place] [address] Performed By: #### 2 4331-1, 49650-7 ####[facility] LABCLIA [id number] [place] [address] [place] HbA1c (Bld)on 08-16-2024 Average glucose Estimated from glycated hemoglobin (Bld) [Mass/Vol] 120 mg/dL Normal [facility] Comment on above: Order Comment: Carola graham Type: BLOOD SPECIMENOrdering Facility: [facility] Address: [address] [place] [address] Result Comment: eAG: (Estimated average glucose) is a calculated value from HgbA1c and is phone representative of the average blood glucose level in the last 2-3 month period. Performed By: #### 5 5454-3 ####[facility] LABCLIA [id number] [place] [address] [place] HbA1c (Bld) [Mass fraction] 5.8 % High 4.3-5.6 [facility] Comment on above: Order Comment: Carola graham Type: BLOOD SPECIMENOrdering Facility: [facility] Address: [address] [place] [address] Result Comment: [place] Diabetes Association guidelines indicate that patients with HgbA1c in the range 5.7-6.4% are at increased risk for development of diabetes, and intervention by lifestyle modification may be beneficial. HgbA1c greater or equal to 6.5% is considered diagnostic of diabetes. Performed By: #### 5 5454-3 ####[facility] LABCLIA [id number] [place] [address] [place] Lipid 1996 panelon Cholesterol [Mass/Vol] 163 mg/dL Normal <200 [facility] Comment on above: Order Comment: Carola graham Type: BLOOD SPECIMENOrdering Facility: [facility] Address: [address] [place] [address] Result Comment: <200 mg/dL, Desirable 200-239 mg/dL, Borderline high >239 mg/dL, High Performed By: #### 2 4331-1, 19350-3 ####[facility] LABCLIA [id number] [place] [address] [place] Cholesterol in HDL [Mass/Vol] 43 mg/dL Normal >39 [facility] Comment on above: Order Comment: Carola graham Type: BLOOD SPECIMENOrdering Facility: [facility] Address: [address] [place] [address] Result Comment: 40-5 9 mg/dL, Acceptable >59 mg/dL, High: Negative risk factor for coronary heart disease <40 mg/dL, Low: Positive risk factor for coronary heart disease Performed By: #### 2 4331-1, 58440-7 ####[facility] LABCLIA [id number] [address] Cholesterol in LDL [Mass/Vol] 107 mg/dL High <100 [facility] Comment on above: Order Comment: Steviejarrod graham Type: BLOOD SPECIMENOrdering Facility: [facility] Address: [address] [place] [address] Result Comment: <100 mg/dL, Optimal 100-129 mg/dL, Near optimal/above optimal 130-159 mg/dL, Borderline high 160-189 mg/dL, High >189 mg/dL, Very high Secondary prevention optimal LDL Cholesterol levels are recommended to be < 70 mg/dL Performed By: #### 2 4331-1, 29329-7 ####[facility] LABCLIA [id number] [address] Cholesterol in LDL/Cholesterol in HDL [Mass ratio] 2.49 {ratio} Normal <2.54 [facility] Comment on above: Order Comment: Carola graham Type: BLOOD SPECIMENOrdering Facility: [facility] Address: [address] [place] [address] Result Comment: Refe rence: 1. National Cholesterol Education Program ATP III Guideline At-A-Glance Quick Desk Reference: National Heart, Lung, and Blood [place]. National Institutes of Health. 2001: NIH Publication No. 01-3305. 2. An International Atherosclerosis Society position paper: global recommendations for the management of dyslipidemia: executive summary, Atherosclerosis. 2014: 232(2):410-413. Performed By: #### 2 4331-1, ####[facility] LABCLIA [id number] [address] [address] [place] Cholesterol in VLDL [Mass/Vol] 13 mg/dL Normal <30 [facility] Comment on above: Order Comment: Speci men Type: BLOOD SPECIMENOrdering Facility: [facility] Address: [address] [place] [address] Performed By: #### 2 4331-1, ####[facility] LABCLIA [id number] [address] [address] [place] Cholesterol non HDL [Mass/Vol] 120 mg/dL Normal <130 [facility] Comment on above: Order Comment: Speci men Type: BLOOD SPECIMENOrdering Facility: [facility] Address: [address] [place] [address] Result Comment: <130 mg/dL, Optimal 130-159 mg/dL, Near optimal/above optimal 160-189 mg/dL, Borderline high 190-219 mg/dL, High >219 mg/dL, Very high Secondary prevention optimal non HDL Cholesterol levels are recommended to be <100 mg/dL Performed By: #### 2 4331-1, ####[facility] LABCLIA [id number] [place] [address] [place] Cholesterol.total/C holesterol in HDL [Mass ratio] 3.79 {ratio} Normal <5.10 [facility] Comment on above: Order Comment: Speci men Type: BLOOD SPECIMENOrdering Facility: [facility] Address: [address] [place], [place] [address] Performed By: #### 2 4331-1, 41165-0 ####[facility] LABCLIA [id number] [place] [id number] [place] FASTING TIME 13 hrs Normal [facility] Comment on above: Order Comment: Speci men Type: BLOOD SPECIMENOrdering Facility: [facility] Address: [address] [place] [address] Performed By: #### 2 4331-1, 61416-7 ####[facility] LABCLIA [id number] [place] [address] [place] Triglyceride [Mass/Vol] 63 mg/dL Normal <150 [facility] Comment on above: Order Comment: Speci men Type: BLOOD SPECIMENOrdering Facility: [facility] Address: [address] [place] [address] Result Comment: <150 mg/dL, Normal 150-199 mg/dL, Borderline high 200-499 mg/dL, High >499 mg/dL, Very high Performed By: #### 2 4331-1, 94550-6 ####[facility] LABCLIA [id number] [place] [address] [place] CNOVon 07-20-2024 CNOV Office Visit (UCWSTR ) BONNY REDDING JR. ([id number]) 1955 [facility] Date Time Provider Department 07/20/24 5:30 PM LUZ COSTA [facility] During your visit today, we recorded the following information about you: Temperature Pulse Respiration Blood pressure 97.3 degrees 54/minute 20/minute 151/89 Weight 144.2 kg Luz Costa APRN.BOARD WRITER 07/20/2024 6:06 PM Signed Subjective Patient with complaints of elbow swelling. Patient says it does not hurt at all. Patient says there is no decrease in range of motion. Patient says he fell about a week ago but he do not think he hit his elbow. Patient says he did have rotator cuff surgery several weeks ago but was cleared from that and has not had any complications from that. The history is provided by the patient. No language path was used. Review of Systems Constitutional: Negative. Skin: Negative. Objective Physical Exam Constitutional: Appearance: Normal appearance. HENT: Right Ear: There is impacted cerumen. Left Ear: There is impacted cerumen. Pulmonary: Effort: Pulmonary effort is normal. Musculoskeletal: Arms: Comments: Fluid-filled swelling in the area marked above. No redness no warmth range of motion intact. No pain. Neurological: Mental Status: He is alert. PAST MEDICAL HISTORY Diagnosis Date Aortic stenosis with bicuspid valve 03/01/2015 Benign neoplasm of colon Chronic cough 05/16/2020 No resolution when ACEi stopped. Negative methecholine challenge 09/2020. Coronary artery disease Essential hypertension, benign 15 yr Obesity, unspecified Other and unspecified hyperlipidemia 15 yrs Peripheral neuropathy 11/29/2014 Personal history of colonic polyps Snoring Unspecified sleep apnea 2006 uses CPAP Vitamin D deficiency 2017 PAST SURGICAL HISTORY Procedure Laterality Date CATARACT EXTRACTION HX 2014 COLONOSCOPY FLX DX W/COLLJ SPEC WHEN PFRMD 08/31/2007 Colonoscopy COLONOSCOPY FLX DX W/COLLJ SPEC WHEN PFRMD N/A 10/12/2016 COLONOSCOPY W/BIOPSY SINGLE/MULTIPLE 07/20/2011 EXC LESION TDN SHTH/JT CAPSL HAND/FNGR 02/24/2013 Excision ganglion cyst left middle finger HEART SURGERY HX LAPAROSCOPY SURG RPR INITIAL INGUINAL HERNIA 05/17/2008 RIGHT PAST SURGICAL HISTORY OF tonsils and adenoids removed PAST SURGICAL HISTORY OF hernia PAST SURGICAL HISTORY OF 04/18/2008 right meniscus repair PAST SURGICAL HISTORY OF 07/2010 right foot surgery PAST SURGICAL HISTORY OF Right 07/28/2022 Right carpometacarpal arthroplasty with flexor carpi radialis interposition, first dorsal compartment tenosynovectomy right partial trapezodi excision RPR UMBILICAL HRNA 5 YRS/> REDUCIBLE 05/17/2008 SEPTOPLASTY/SUBMUCOUS RESECJ W/WO CARTILAGE GRF 2004 Septoplasty TOTAL KNEE REPLACEMENT Left 11/13/2022 Dr. Jackson Mera TOTAL KNEE REPLACEMENT Right 02/19/2023 ALLERGIES Patient has no known allergies. MEDICATIONS atorvastatin (LIPITOR) 20 mg tablet Take 1 tablet by mouth once daily. amLODIPine (NORVASC) 5 mg tablet Take 1 tablet by mouth once daily. Tadalafil (CIALIS) 20 mg tablet Take 1 tablet by mouth as needed. losartan (COZAAR) 100 mg tablet Take 1 tablet by mouth once daily. OTC PRODUCT Vitamin D 500mg daily aspirin 81 mg chewable tablet Take 2 tablets by mouth once daily. hmttlxny-glowdwmlv-sdqsifzwhv sone (CORTISPORIN) 3.5-10,000-1 mg/mL-unit/mL-% otic suspension Use 3 Drops in both ears four times daily. Amoxicillin 500 mg tablet Take 4 pills day of dental appointment FAMILY HISTORY Problem Relation Age of Onset Alzheimer's Disease Mother age 76-COPD COPD Mother other (Hypertension, Hyperlipidemia) Mother Coronary Artery Disease Father 60 valve replacement Prostate Cancer Father other (PARKINSON) Father Prostate Cancer Paternal Uncle Prostate Cancer Maternal Grandfather Hypertension Sister Social History Tobacco Use Smoking status: Never Smokeless tobacco: Never Tobacco comments: ETS in childhood home, motrher smoker. Vaping Use Vaping status: Never Used Substance Use Topics Alcohol use: No Drug use: No ASSESSMENT/PLAN: 1. Bilateral impacted cerumen - ICD9: 380.4, ICD10: H61.23 (primary diagnosis) TMs are visualized after nurse flushed ears. Left TM is within normal limits. Right TM is slightly irritated and canal seems swollen and flaky. Called in some Cortisporin to see if this helps. Patient was instructed to follow-up with dermatology if this does not work. - REMOVAL OF IMPACTED CERUMEN - INSTRUMENTATION 2. Olecranon bursitis of right elbow - ICD9: 726.33, ICD10: M70.21 Information off of up-to-date for patient. Patient was instructed about red flag symptoms to watch for such as increased pain redness warmth. Decreased range of motion. And to go to the ER if any of these occur. Okay with this care plan. Luz Costa APRN.BOARD WRITER Allergies A (more content not included)... Normal [facility] MR/POSTOP.[place] 05-25-2024 MR/POSTOP.[facility] Medical Records Department [address] [place] [address] Anesthesia Postop Eval I 05/25/24 1535 MR#: [id number] Acct: [id number] Name: BONNY REDDING Jr. Rep #: [id number] : 1955 68 From: Minor Karimi CRNA PCP: Dr. Deshawn Noel MD Status:REG SDC Y Race: C Location: [place] [address] Anesthesia: Postop Eval I Current Vital Signs Temperature: 97.5 F Pulse Rate: 61 Blood Pressure: 129/85 Respiratory Rate: 16 Pulse Ox: 95 Oxygen Delivery Method: Room Air Assessment Airway patent: Yes Spontaneous unlabored respirations: Yes Mental status: Awake and Calm nausea: No Vomiting: No Anesthesia Complication: No Fluid Hydration Crystalloid volume administer (ml): 1,000 Total IV fluid infused: 1,000 Progress Note Anesthesia document: Postop Eval 1 completed: Yes 05/25/24 1535 Date Minor Karimi DIRECTOR INTERNAL COMMUNICATIONS Cosigner Signature: Date CC: Signed Normal [facility] MR/[id number] 05-25-2024 MR/POSTOPAN2 [facility] Medical Records Department [address] [place] [id number] Anesthesia Postop Eval II 05/25/24 1651 MR#: [id number] Acct: [id number] Name: BONYN REDDING JrRakan Rep #: [id number] : 1955 68 From: Paul Iraheta MD PCP: Dr. Deshawn Noel MD Status:[facility] Y Race: C [place] [facility] [place]esthesia Postop Eval I Sum Postop Eval Completion status Anesthesia document: Postop Eval 1 completed: Yes Anesthesia Postop Eval I Summary Anesthesia Postop Eval I Summary: Anesthesia Postop Eval I: Assessment Summary Airway patent Yes 05/25/24 15:35 DIRECTOR INTERNAL COMMUNICATIONS.JBLOU Spontaneous unlabored Yes 05/25/24 15:35 DIRECTOR INTERNAL COMMUNICATIONS.JBLOU respirations Mental status Awake,Calm 05/25/24 15:35 DIRECTOR INTERNAL COMMUNICATIONS.JBLOU nausea No 05/25/24 15:35 DIRECTOR INTERNAL COMMUNICATIONS.JBLOU Vomiting No 05/25/24 15:35 DIRECTOR INTERNAL COMMUNICATIONS.JBLOU Anesthesia Postop Eval I: Fluid Summary Crystalloid volume administer 1,000 05/25/24 15:35 DIRECTOR INTERNAL COMMUNICATIONS.JBLOU (ml) Colloids volume administered ( ml) Blood Product volume administered (ml) Total IV fluid infused 1,000 05/25/24 15:35 DIRECTOR INTERNAL COMMUNICATIONS.JBLOU Anesthesia Postop Eval I: Summary Notes Anesthesia Complication No 05/25/24 15:35 DIRECTOR INTERNAL COMMUNICATIONS.JBLOU Anesthesia Complication Comment: Post-operative progress note Anesthesia: Postop Eval II Evaluation Mental status: Awake Pain Level: 0 nausea: No Vomiting: No 05/25/24 1651 Date Paul Smith Signature: Date CC: Signed Normal [facility] Operative Reporton 4 Operative Report [facility] Medical Records Department [address] [place] [id number] Operative Report 05/25/24 1337 MR#: [id number] Acct: [id number] Name: BONNY REDDING Jr. Rep #: [id number] : 1955 68 From: Artemio Grove DO PCP: Dr. Deshawn Noel MD Status:[facility] Location: [place] [address] Operative Report (Standard) Operative Information Surgery/Procedure Performed: 1. Right shoulder arthroscopic anterior inferior labral repair 2. Right shoulder open rotator cuff repair 3. Right shoulder open long head of biceps tenodesis Surgeon: Artemio Grove Date of Procedure: 05/25/24 Procedure Start Time: 12:01 Procedure Stop Time: 13:31 Pre-Operative Diagnosis: 1. Right shoulder anterior instability 2. Right shoulder anterior-inferior labral tear 3. Right shoulder long head biceps tendon instability 4. Right shoulder rotator cuff tear Post-Operative Diagnosis: 1. Right shoulder anterior instability 2. Right shoulder anterior-inferior labral tear 3. Right shoulder long head biceps tendon instability 4. Right shoulder rotator cuff tear Select all DRAINS/GRAFTS/IMPLANTS that apply: None (See report below) Type of Anesthesia: General Estimated Blood Loss: 25 cc Fluids Replaced: Per anesthesia record Specimen collected: No Description of surgery: Implants: Arthrex fiber tack RC anchors x 3, Arthrex bio composite self punching swivel lock anchor 4.75 mm x 3, bio composite push lock anchors x 2 Packing/drains: None Specimen: None Complications: None apparent assistant health educator: Griselda Bartlett PA-C Records And Information Manager: Minor Karimi CRNA Indications: This is a 68-year-old male who sustained a work-related injury earlier this year and sustained a anterior dislocation of his right shoulder. Closed reduction was performed. MRI demonstrated full-thickness subscapularis tendon tearing, long head biceps tendon instability, and anterior inferior labral tearing. I recommended surgical intervention in the form of right shoulder arthroscopic rotator cuff repair, biceps tenodesis, labral repair. We discussed the possible need for open repair of the subscapularis. Patient was amenable to the this treatment plan and wished proceed with surgery. Risks, benefits, alternatives to the procedure reviewed with patient at length and he agreed to proceed. Risks included but were not limited to bleeding, infection, loss of life or limb, need for additional surgery, persistent pain, nonhealing tendon or wounds, neurovascular injury, stiffness, DVT or PE, risk of anesthesia. Informed consent was obtained in the outpatient setting. Description of procedure: Patient identified in preoperative holding area by name, medical record number, date of . The operative extremity was marked. All questions answered patient satisfaction. At time of his procedure, patient was brought to the operative suite and positioned supine a standard operating table with a beachchair attachment. All bony prominences well-padded. General anesthesia was induced and endotracheal tube placed. Patient was then positioned in the beachchair position with an arthroscopic head girls golf coach. All bony prominences were well-padded. Tube was secured. We spun the bed 45 degrees. We prepped and draped the right upper extremity in normal, sterile orthopedic fashion. We performed timeout confirming the side, site, operation to be performed. No concerns were voiced and we elected to proceed with surgery. 3 g Ancef was administered IV prior to incision by anesthesia staff. I first establish a standard posterior portal 2 fingerbreadths inferior medial to the posterior lateral border of the scapular spine. Blunt tipped trocar was used to gain access to the glenohumeral joint. The joint was filled with normal saline with epinephrine. Arthroscope was introduced. Full-thickness retraction tear of the subscapularis was noted as well as anterior margin of the supraspinatus with intact comma tissue. Significant tendinosis and partial tearing of the long head biceps tendon was noted. Anterior interval portal was established and rigid cannula placed. Biceps tenotomy was performed at the biceps labral junction. The tendon was allowed to retract into the groove. I then placed an accessory portal at the anterior superior lateral position with a rigid cannula placed for labral repair. I then elevated the scar tissue at the region of the Bankart tear. I was able to mobilize labral tissue which was significantly deficient as well as anterior capsular tissue. A lasso suture passer was utilized to place 2 fiber links in the labral and anterior capsular tissue for 2 bio composite push lock anchors. These were placed at the 4:00 and 3 o'clock position respectively. There was improved anterior capsular tensioning and bumper effect of the labrum. Sutures were cut flush with the anchor. The subscapularis appeared to (more content not included)... Normal [facility] CNOVon 05-02-2024 CNOV Office Visit (CARCMN ) BONNY REDDING JR. ([id number]) 1955 NFR Date Time Provider Department 05/02/24 10:00 AM [place] [facility]CK[facility] During your visit today, we recorded the following information about you: Pulse Respiration Blood pressure Weight 57/minute 16/minute 169/97 143.3 kg Height 1.829 m Jarvis [place] MD 05/06/2024 10:25 AM Signed [facility] [place] [facility] Department of Cardiovascular Medicine SECTION OF CLINICAL CARDIOLOGY OUTPATIENT VISIT DATE May 02, 2024 OUTPATIENT VISIT TYPE ESTABLISHED PRIMARY CARE PHYSICIAN: Deshawn Noel [address] [place] [address] REFERRING PHYSICIAN: No referring provider defined for this encounter. CHIEF COMPLAINT: s/p AVR HISTORY OF PRESENT ILLNESS: Mr. Redding is a 68 year old male who presents today for a cardiovascular medicine follow-up visit. He is s/p AVR and has been doing well. Unfortunately he had a fall at work and dislocated his shoulder. He will correction of the labrum for the same. He has put on some weight. He has no clinical complaints. He denies chest pain, shortness of breath, orthopnea, cough, edema, palpitations, PND, lightheadedness or syncope. PAST CARDIAC HISTORY: PAST MEDICAL HISTORY Diagnosis Date Aortic stenosis with bicuspid valve 03/01/2015 Benign neoplasm of colon Chronic cough 05/16/2020 No resolution when ACEi stopped. Negative methecholine challenge 09/2020. Coronary artery disease Essential hypertension, benign 15 yr Obesity, unspecified Other and unspecified hyperlipidemia 15 yrs Peripheral neuropathy 11/29/2014 Personal history of colonic polyps Snoring Unspecified sleep apnea 2007 uses CPAP Vitamin D deficiency 2018 PAST SURGICAL HISTORY Procedure Laterality Date CATARACT EXTRACTION HX 2014 COLONOSCOPY FLX DX W/COLLJ SPEC WHEN PFRMD 08/31/2007 Colonoscopy COLONOSCOPY FLX DX W/COLLJ SPEC WHEN PFRMD N/A 10/12/2016 COLONOSCOPY W/BIOPSY SINGLE/MULTIPLE 07/20/2011 EXC LESION TDN SHTH/JT CAPSL HAND/FNGR 02/24/2013 Excision ganglion cyst left middle finger HEART SURGERY HX LAPAROSCOPY SURG RPR INITIAL INGUINAL HERNIA 05/17/2008 RIGHT PAST SURGICAL HISTORY OF tonsils and adenoids removed PAST SURGICAL HISTORY OF hernia PAST SURGICAL HISTORY OF 04/18/2008 right meniscus repair PAST SURGICAL HISTORY OF 07/2010 right foot surgery PAST SURGICAL HISTORY OF Right 07/28/2022 Right carpometacarpal arthroplasty with flexor carpi radialis interposition, first dorsal compartment tenosynovectomy right partial trapezodi excision RPR UMBILICAL HRNA 5 YRS/> REDUCIBLE 05/17/2008 SEPTOPLASTY/SUBMUCOUS RESECJ W/WO CARTILAGE GRF 2004 Septoplasty TOTAL KNEE REPLACEMENT Left 11/13/2022 Dr. Jackson Mera TOTAL KNEE REPLACEMENT Right 02/19/2023 SOCIAL HISTORY Social History Tobacco Use Smoking status: Never Smokeless tobacco: Never Tobacco comments: ETS in childhood home, motrher smoker. Vaping Use Vaping status: Never Used Substance Use Topics Alcohol use: No Drug use: No FAMILY HISTORY Problem Relation Age of Onset Alzheimer's Disease Mother age 76-COPD COPD Mother other (Hypertension, Hyperlipidemia) Mother Coronary Artery Disease Father 60 valve replacement Prostate Cancer Father other (PARKINSON) Father Prostate Cancer Paternal Uncle Prostate Cancer Maternal Grandfather Hypertension Sister Patient-Entered Questionnaire Scores 04/06/2023 04/27/2024 Patient Entered Questionnaires Average hours of sleep per day 8 8 Diagnosed with Sleep Apnea Yes Average hours of PAP use per night 8 04/06/2023 04/27/2024 Insomnia Severity Index (ALEXANDER) Score 1 (No clinically significant insomnia) Incomplete 04/06/2023 08/16/2023 02/13/2024 PROMIS Global Health - (T-Scores - the mean of general population = 50. Five points is a clinically meaningful difference.) Physical T-Score 57.7 57.7 54.1 Mental T-Score 62.5 56 59 ALLERGIES: ALLERGIES Not on File MEDICATIONS: Tadalafil (CIALIS) 20 mg tablet Take 1 tablet by mouth as needed. losartan (COZAAR) 100 mg tablet Take 1 tablet by mouth once daily. simvastatin (ZOCOR) 20 mg tablet Take 1 tablet by mouth daily at bedtime. Amoxicillin 500 mg tablet Take 4 pills day of dental appointment OTC PRODUCT Vitamin D 500mg daily aspirin 81 mg chewable tablet Take 2 tablets by mouth once daily. amLODIPine (NORVASC) 5 mg tablet Take 1 tablet by mouth once daily. suykaxxl-rakksqnbs-jykpysjzom sone (CORTISPORIN) 3.5-10,000-1 mg/mL-unit/mL-% otic suspension Use 3 Drops in both ears four times daily. PHYSICAL EXAMINATION: BP 169/97 (BP Site: Left Arm, BP Position: Sitting, BP Cuff Size: Regular Adult) Pulse (!) 57 Resp 16 Ht 182.9 cm (6') Wt (!) 143.3 kg (316 lb) SpO2 98% BMI 42.86 kg/m? G (more content not included)... Normal [facility] ECG COMPLETEon 05-02-2024 ECG COMPLETE Ventricular Rate : 5 3 BPM Atrial Rate : 53 BPM P-R Interval : 208 ms QRS Duration : 110 ms Q-T Interval : 422 ms QTC Calculation(Bazett) : 395 ms Calculated P Phelps : 59 degrees Calculated R Phelps : -21 degrees Calculated T Phelps : 64 degrees SINUS BRADYCARDIA INCOMPLETE LEFT BUNDLE BRANCH BLOCK BORDERLINE ECG Confirmed by ARTEMIO PATHAK MD ([id number]) on 05/14/2024 6:39:39 PM NAME : BONNY REDDING PID : [id number] : 1955 Gender : Male Race : ORD : [id number] Procedure Date : May 02 2024 09:37:40 Edit Date : May 14 2024 18:39:43 Diagnosis: SINUS BRADYCARDIA INCOMPLETE LEFT BUNDLE BRANCH BLOCK BORDERLINE ECG Confirmed by ARTEMIO PATHAK MD ([id number]) on 05/14/2024 6:39:39 PM Test Reason : Location : [facility] J1-4 Overread By : ARTEMIO PATHAK MD Edited By : ARTEMIO PATHAK MD Referred By : [place] Acquired by : PORTIA AZAR [facility] CNOVon 04-07-2024 CNOV Office Visit (FAMWS ) BONNY REDDING JRRakan ([id number]) 1955 M NFR Date Time Provider Department 04/07/24 10:40 AM [facility] During your visit today, we recorded the following information about you: Pulse Respiration Blood pressure Weight 57/minute 18/minute 138/82 142.3 kg Ye Sharma APRN.BOARD WRITER 04/07/2024 11:09 AM Signed Chief Complaint Patient presents with: Pre-Op Exam: Shoulder surgery cancelled for hypoxia Ear Problem: Possible still has infection in right ear, seen [facility] about 2 [facility] ago. Currently has cough HPI Bonny Redding Jr. is a 68 year old male who presents here today for pre-operative exam. Patient had surgery on 03/29. Patient discussing that he was at the outpatient surgery center. He was having surgery on his right shoulder. Was given a block. Wheeled into suite, asked to over to the surgical table. Struggled getting over there but to having a block on his right arm. SpO2 went down to 60%. They had to give him oxygen. It returned to normal and surgery was cancelled. The surgeon hypothesized that the block made his diaphragm numb. He was previously cleared by his PCP for the surgery. He had paperwork for surgical approval sent to his cigarette making examiner. Has appointment in late April. He denies any chest pain. His believes that the patient becomes easily with movement. He does admit that she has some complaints of shortness of breath with exertion. Leaves that has been ongoing for a few months. Gives the example of using a work out machine prior that he now struggles with doing the same exercise. He has been checking his SpO2 at home a few times a day. SpO2 always greater than 95%. He has a history of aortic valve replacement in 2018, CAD. Uses a CPAP for JULIET with benefit. He has a history of chronic cough. No resolution when ANN inhibitor was stopped. Negative methecholine challenge in 09/2020. He states that he has chronic excessive phlegm. Usually in his throat. Can be worse after meals. Denies any GERD. Recently evaluated in [facility] for ear pain. Large amount of cerumen removed, right ear was treated prophylactically with antibiotic for otitis externa. Denies any fevers or pain. Just would like the ears checked. Past medical history, appointments, medications, allergies reviewed. Previous Medical History PAST MEDICAL HISTORY Diagnosis Date Aortic stenosis with bicuspid valve 03/01/2015 Benign neoplasm of colon Chronic cough 05/16/2020 No resolution when ACEi stopped. Negative methecholine challenge 09/2020. Coronary artery disease Essential hypertension, benign 15 yr Obesity, unspecified Other and unspecified hyperlipidemia 15 yrs Peripheral neuropathy 11/29/2014 Personal history of colonic polyps Snoring Unspecified sleep apnea 2007 uses CPAP Vitamin D deficiency 2018 Previous Surgical History PAST SURGICAL HISTORY Procedure Laterality Date CATARACT EXTRACTION HX 2013 COLONOSCOPY FLX DX W/COLLJ SPEC WHEN PFRMD 08/31/2007 Colonoscopy COLONOSCOPY FLX DX W/COLLJ SPEC WHEN PFRMD N/A 10/12/2016 COLONOSCOPY W/BIOPSY SINGLE/MULTIPLE 07/20/2011 EXC LESION TDN SHTH/JT CAPSL HAND/FNGR 02/24/2013 Excision ganglion cyst left middle finger HEART SURGERY HX LAPAROSCOPY SURG RPR INITIAL INGUINAL HERNIA 05/17/2008 RIGHT PAST SURGICAL HISTORY OF tonsils and adenoids removed PAST SURGICAL HISTORY OF hernia PAST SURGICAL HISTORY OF 04/18/2008 right meniscus repair PAST SURGICAL HISTORY OF 07/2010 right foot surgery PAST SURGICAL HISTORY OF Right 07/28/2022 Right carpometacarpal arthroplasty with flexor carpi radialis interposition, first dorsal compartment tenosynovectomy right partial trapezodi excision RPR UMBILICAL HRNA 5 YRS/> REDUCIBLE 05/17/2008 SEPTOPLASTY/SUBMUCOUS RESECJ W/WO CARTILAGE GRF 2004 Septoplasty TOTAL KNEE REPLACEMENT Left 11/13/2022 Dr. Jackson Mera TOTAL KNEE REPLACEMENT Right 02/19/2023 Family History FAMILY HISTORY Problem Relation Age of Onset Alzheimer's Disease Mother age 76-COPD COPD Mother other (Hypertension, Hyperlipidemia) Mother Coronary Artery Disease Father 60 valve replacement Prostate Cancer Father other (PARKINSON) Father Prostate Cancer Paternal Uncle Prostate Cancer Maternal Grandfather Hypertension Sister Patient Allergies ALLERGIES No Known Allergies Current Medications Current Outpatient Medications on File Prior to Visit Medication Sig daetvrbe-eshabhdqs-ygyqwyulpf sone (CORTISPORIN) 3.5-10,000-1 mg/mL-unit/mL-% otic suspension Use 3 Drops in both ears four times daily. Tadalafil (CIALIS) 20 mg tablet Take 1 tablet by mouth as needed. losartan (COZAAR) 100 mg tablet Take 1 tablet by mouth once daily. simvastatin (ZOCOR) 20 mg tablet Take 1 tablet by mouth daily at bedtime. Amoxicillin 500 mg tablet Take 4 pills day of denta (more content not included)... [facility] BONNY REDDING JR. ([id number]) 1955 M NFR Date Time Provider Department 03/30/24 [facility] During your visit today, we recorded the following information about you: Ana Baltazar MA 03/30/2024 11:15 AM Signed [facility] sends Request for Surgical Clearance form stating that pt shoulder surgery was cancelled due to Hypoxemia prior to surgery per anesthesia. See form, complete and fax back. KEL Murguia Jesse, APRN.DILIP 04/07/2024 11:11 AM Signed Form signed Ye Sharma APRN.Lillie Vera LPN 04/07/2024 11:49 AM Signed Faxed to number provided on form. Allergies As of Date: 03/30/2024 (No Known Allergies) Date Reviewed: 03/20/2024 Reviewed by: Sarah Anderson MA - Fully Assessed Reason for Visit: Forms [913] Cmt: Surgical Clearance-Theo Jacobo Prescriptions as of 04/07/2024 - nnhkiblz-ovygekubf-foivlozmbp sone (CORTISPORIN) 3.5-10,000-1 mg/mL-unit/mL-% otic suspension Use 3 Drops in both ears four times daily. - Tadalafil (CIALIS) 20 mg tablet Take 1 tablet by mouth as needed. - losartan (COZAAR) 100 mg tablet Take 1 tablet by mouth once daily. - simvastatin (ZOCOR) 20 mg tablet Take 1 tablet by mouth daily at bedtime. - Amoxicillin 500 mg tablet Take 4 pills day of dental appointment - OTC PRODUCT Vitamin D 500mg daily - aspirin 81 mg chewable tablet Take 2 tablets by mouth once daily. Problem List As Of Date 03/30/2024 Noted Resolved Essential hypertension, benign [I10] Obesity, Class III, BMI 40-49.9 (morbid obesity* Sleep apnea [G47.30] Benign neoplasm of colon [D12.6] 08/31/2007 11/29/2014 Tear of medial cartilage or meniscus of knee, c*03/29/2008 11/29/2014 INGUINAL HERNIA, UNILATERAL W/O GANGRENE/OBSTRU*04/30/2008 11/29/2014 SURGERY FOLLOWUP NOS [Z09] 05/02/2008 09/10/2008 UMBILICAL HERNIA W/O GANGRENE/OBSTRUCTION [K42.*05/28/2008 11/29/2014 Personal history of colonic polyps [Z86.010] 07/20/2011 Inclusion cyst [L72.0] 01/16/2013 03/02/2013 Ganglion and cyst of synovium, tendon and bursa*03/02/2013 11/29/2014 Actinic Keratoses: 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] 07/25/2013 11/29/2014 Actinic skin damage [L57.8] 07/25/2013 Cutaneous skin tags [L91.8] 07/25/2013 11/29/2014 Viral warts, unspecified [B07.9] 09/06/2013 11/29/2014 Peripheral neuropathy (HCC) [G62.9] 11/29/2014 05/25/2016 Family history of prostate cancer in father [Z8*02/25/2015 Aortic stenosis with bicuspid valve [Q23.0, Q23*03/01/2015 ELOISE positive [R76.8] 10/02/2015 Bilateral low back pain with right-sided sciati*10/02/2015 05/25/2016 Family history of psoriasis [Z84.0] 10/02/2015 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*10/02/2015 Chronic pain of both knees [M25.561, M25.562, G*10/02/2015 05/25/2016 Numbness and tingling in both hands [R20.0, R20*10/02/2015 05/25/2016 Numbness and tingling of both legs [R20.0, R20.*10/02/2015 05/25/2016 Hyperlipidemia LDL goal <130 [E78.5] 05/04/2016 Impaired fasting glucose [R73.01] 08/27/2017 Vitamin D deficiency [E55.9] 08/27/2017 Pre-op testing [Z01.818] 11/10/2017 11/16/2017 On mechanically assisted ventilation (HCC) [Z99*11/12/2017 11/13/2017 Atelectasis [J98.11] 11/13/2017 11/16/2017 Pleural effusion [J90] 11/14/2017 11/16/2017 A-fib (HCC) [I48.91] 11/15/2017 11/16/2017 Transition of care performed with sharing of cl*11/16/2017 Coronary artery disease involving kake moore*11/16/2017 History of aortic valve replacement with biopro*11/26/2017 ED (erectile dysfunction) of organic origin [N5*03/24/2018 Presence of prosthetic heart valve [Z95.2] 03/23/2018 Arthritis of hip [M16.10] 05/16/2020 Arthritis of knee [M17.10] 05/16/2020 Degenerative arthritis of metacarpophalangeal j*05/16/2020 Chronic cough [R05.3] 05/16/2020 Obesity, Class II, BMI 35-39.9 [E66.9] 04/18/2023 Encounter Status:Closed by LILLIE LLOYD on 04/07/24 [facility] Willam 03-29-2024 CNPN Telephone (CARCMN) BONNY REDDING JR. ([id number]) 1955 M NFR Date Time Provider Department 03/29/24 [facility] [place] During your visit today, we recorded the following information about you: RodrigoKaylyn Saravia 03/29/2024 11:39 AM Signed Tatyana Mcdonald RN 03/31/2024 3:45 PM Signed Form printed and placed in Dr Lake's folder. MARINO Washington Stefani Elise, RN 04/12/2024 4:59 PM Signed Form completed with dr lake, signed, given to administrative director for faxing. MARINO Salgado Jessica 04/13/2024 8:47 AM Addendum Admin faxed clearance with confirmation and uploaded to scanned Docs / OPD folder. Jackeline Barry April 13, 2024 8:46 AM Allergies As of Date: 03/29/2024 (No Known Allergies) Date Reviewed: 03/20/2024 Reviewed by: Sarah Anderson MA - Fully Assessed Reason for Visit: Cardiac Clearance [4105] Prescriptions as of 04/13/2024 - jxegskax-qcmtjlqhw-tyvveyxilp sone (CORTISPORIN) 3.5-10,000-1 mg/mL-unit/mL-% otic suspension Use 3 Drops in both ears four times daily. - Tadalafil (CIALIS) 20 mg tablet Take 1 tablet by mouth as needed. - losartan (COZAAR) 100 mg tablet Take 1 tablet by mouth once daily. - simvastatin (ZOCOR) 20 mg tablet Take 1 tablet by mouth daily at bedtime. - Amoxicillin 500 mg tablet Take 4 pills day of dental appointment - OTC PRODUCT Vitamin D 500mg daily - aspirin 81 mg chewable tablet Take 2 tablets by mouth once daily. Problem List As Of Date 03/29/2024 Noted Resolved Essential hypertension, benign [I10] Obesity, Class III, BMI 40-49.9 (morbid obesity* Sleep apnea [G47.30] Benign neoplasm of colon [D12.6] 08/31/2007 11/29/2014 Tear of medial cartilage or meniscus of knee, c*03/29/2008 11/29/2014 INGUINAL HERNIA, UNILATERAL W/O GANGRENE/OBSTRU*04/30/2008 11/29/2014 SURGERY FOLLOWUP NOS [Z09] 05/02/2008 09/10/2008 UMBILICAL HERNIA W/O GANGRENE/OBSTRUCTION [K42.*05/28/2008 11/29/2014 Personal history of colonic polyps [Z86.0100] 07/20/2011 Inclusion cyst [L72.0] 01/16/2013 03/02/2013 Ganglion and cyst of synovium, tendon and bursa*03/02/2013 11/29/2014 Actinic Keratoses: 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] 07/25/2013 11/29/2014 Actinic skin damage [L57.8] 07/25/2013 Cutaneous skin tags [L91.8] 07/25/2013 11/29/2014 Viral warts, unspecified [B07.9] 09/06/2013 11/29/2014 Peripheral neuropathy (HCC) [G62.9] 11/29/2014 05/25/2016 Family history of prostate cancer in father [Z8*02/25/2015 Aortic stenosis with bicuspid valve [Q23.0, Q23*03/01/2015 ELOISE positive [R76.8] 10/02/2015 Bilateral low back pain with right-sided sciati*10/02/2015 05/25/2016 Family history of psoriasis [Z84.0] 10/02/2015 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*10/02/2015 Chronic pain of both knees [M25.561, M25.562, G*10/02/2015 05/25/2016 Numbness and tingling in both hands [R20.0, R20*10/02/2015 05/25/2016 Numbness and tingling of both legs [R20.0, R20.*10/02/2015 05/25/2016 Hyperlipidemia LDL goal <130 [E78.5] 05/04/2016 Impaired fasting glucose [R73.01] 08/27/2017 Vitamin D deficiency [E55.9] 08/27/2017 Pre-op testing [Z01.818] 11/10/2017 11/16/2017 On mechanically assisted ventilation (HCC) [Z99*11/12/2017 11/13/2017 Atelectasis [J98.11] 11/13/2017 11/16/2017 Pleural effusion [J90] 11/14/2017 11/16/2017 A-fib (HCC) [I48.91] 11/15/2017 11/16/2017 Transition of care performed with sharing of cl*11/16/2017 Coronary artery disease involving kake moore*11/16/2017 History of aortic valve replacement with biopro*11/26/2017 ED (erectile dysfunction) of organic origin [N5*03/24/2018 Presence of prosthetic heart valve [Z95.2] 03/23/2018 Arthritis of hip [M16.10] 05/16/2020 Arthritis of knee [M17.10] 05/16/2020 Degenerative arthritis of metacarpophalangeal j*05/16/2020 Chronic cough [R05.3] 05/16/2020 Obesity, Class II, BMI 35-39.9 [E66.812] 04/18/2023 Encounter Status:Closed by LATISHA CRONIN on 04/12/24 Normal [facility] Basic Metabolic Profile (BMP )on 03-27-2024 BUN/CRE 13.1 RATIO Normal 10-20 [facility] Comment on above: Performed By: #### L 500.2500, L100.0100 #### [facility] [address] [place], [address] CA,Total 9.7 mg/dL Normal 8.5-10.1 [facility] Comment on above: Performed By: #### L 500.2500, L100.0100 #### [facility] [address] [place], [address] Chloride [Moles/Vol] 107 mmol/L Normal 98-107 [facility] Comment on above: Performed By: #### L 500.2500, L100.0100 #### [facility] [address] [place], [address] CO2 [Moles/Vol] 25.0 mmol/L Normal 21.0-32.0 [facility] Comment on above: Performed By: #### L 500.2500, L100.0100 #### [facility] [address] [place], [address] Creatinine [Mass/Vol] 1.22 mg/dL Normal 0.70-1.30 [facility] Comment on above: Result Comment: The validity of the calculated GFR GFRAA in patients over 70 years has not been determined. Clinical correlation is essential. Performed By: #### L 500.2500, L100.0100 #### [facility] [address] [place], [address] EST GFR - AA 76 mL/min Normal >60 [facility] Comment on above: Result Comment: Afri can Mosotho GFR Calc Performed By: #### L 500.2500, L100.0100 #### [facility] [address] [place], [address] GAP 8 Normal 5-15 [facility] Comment on above: Performed By: #### L 500.2500, L100.0100 #### [facility] [address] [place], [address] GFR/1.73 sq M.predicted among non-blacks MDRD (S/P/Bld) [Vol rate/Area] 63 mL/min/{1.73_m2} Normal >60 [facility] Comment on above: Result Comment: Non- GFR Calc Performed By: #### L 500.2500, L100.0100 #### [facility] [address] [place], [address] Glucose [Mass/Vol] 125 mg/dL High 74-106 [facility] Comment on above: Result Comment: Fast ing Glucose result from 100 to 125 mg/dL suggests IMPAIRED HOMEOSTASIS per A.D.A. criteria. Performed By: #### L 500.2500, L100.0100 #### [facility] [address] [place], [address] Potassium [Moles/Vol] 4.0 mmol/L Normal 3.5-5.1 [facility] Comment on above: Performed By: #### L 500.2500, L100.0100 #### [facility] [address] [place], [address] Sodium [Moles/Vol] 140 mmol/L Normal 136-145 [facility] Comment on above: Performed By: #### L 500.2500, L100.0100 #### [facility] [address] [place], [address] Urea nitrogen [Mass/Vol] 16 mg/dL Normal 7-18 [facility] Comment on above: Performed By: #### L 500.2500, L100.0100 #### [facility] [address] [place], [address] CBC W/Diff, Automatedon - Absolute Lymph 1.58 X10 3/uL Normal 0.83-4.51 [facility] Comment on above: Order Comment: SEND RESULTS TO Performed By: #### L 500.2500, L100.0100 #### [facility] [address] [place], [address] Absolute Neut 4.3 X10 3/uL Normal 2.0-7.7 [facility] Comment on above: Order Comment: SEND RESULTS TO Performed By: #### L 500.2500, L100.0100 #### [facility] [address] [place], [address] Basophils/100 WBC (Bld) 0.4 % Normal 0-1 [facility] Comment on above: Order Comment: SEND RESULTS TO Performed By: #### L 500.2500, L100.0100 #### [facility] [address] [place], [address] Eosinophils/100 WBC (Bld) 3.5 % Normal 0-5 [facility] Comment on above: Order Comment: SEND RESULTS TO Performed By: #### L 500.2500, L100.0100 #### [facility] [address] [place], [address] Erythrocyte distribution width (RBC) [Ratio] 12.8 % Normal 11.6-14.6 [facility] Comment on above: Order Comment: SEND RESULTS TO Performed By: #### L 500.2500, L100.0100 #### [facility] [address] [place], [address] Hematocrit (Bld) [Volume fraction] 44.9 % Normal 40-54 [facility] Comment on above: Order Comment: SEND RESULTS TO Performed By: #### L 500.2500, L100.0100 #### [facility] [address] [place], [address] Hemoglobin (Bld) [Mass/Vol] 14.9 g/dL Normal 13.0-16.5 [facility] Comment on above: Order Comment: SEND RESULTS TO Performed By: #### L 500.2500, L100.0100 #### [facility] [address] [place], [address] IG% 0.300 Normal 0.0-0.9 [facility] Comment on above: Order Comment: SEND RESULTS TO Result Comment: IG% - Immature Granulocytes (promyelocytes, myelocytes and metamyelocytes) > 1% indicates that a LEFT SHIFT is Present. Performed By: #### L 500.2500, L100.0100 #### [facility] [address] [place], [address] Lymphocytes/100 WBC (Bld) 23.0 % Normal 19-41 [facility] Comment on above: Order Comment: SEND RESULTS TO Performed By: #### L 500.2500, L100.0100 #### [facility] [address] [place], [address] MCH (RBC) [Entitic mass] 31.4 pg Normal 27.0-32.0 [facility] Comment on above: Order Comment: SEND RESULTS TO Performed By: #### L 500.2500, L100.0100 #### [facility] [address] [place], [address] MCHC (RBC) [Mass/Vol] 33.2 g/dL Normal 32-36 [facility] Comment on above: Order Comment: SEND RESULTS TO Performed By: #### L 500.2500, L100.0100 #### [facility] [address] [place], [address] MCV (RBC) [Entitic vol] 94.5 fL High 80-94 [facility] Comment on above: Order Comment: SEND RESULTS TO Performed By: #### L 500.2500, L100.0100 #### [facility] [address] [place], [address] Monocytes/100 WBC (Bld) 11.0 % High 0-10 [facility] Comment on above: Order Comment: SEND RESULTS TO Performed By: #### L 500.2500, L100.0100 #### [facility] [address] [place], [address] Neutrophils/100 WBC (Bld) 61.8 % Normal 47-70 [facility] Comment on above: Order Comment: SEND RESULTS TO Performed By: #### L 500.2500, L100.0100 #### [facility] [address] [place], [address] Nucleated RBC (Bld) [#/Vol] 0 10*3/uL Normal 0-5 [facility] Comment on above: Order Comment: SEND RESULTS TO Performed By: #### L 500.2500, L100.0100 #### [facility] [address] [place], [address] Platelet mean volume (Bld) [Entitic vol] 10.3 fL Normal 6.2-12.0 [facility] Comment on above: Order Comment: SEND RESULTS TO Performed By: #### L 500.2500, L100.0100 #### [facility] [address] [place], [address] Platelets (Bld) [#/Vol] 211 10*3/uL Normal 150-450 [facility] Comment on above: Order Comment: SEND RESULTS TO Performed By: #### L 500.2500, L100.0100 #### [facility] [address] [place], [address] RBC (Bld) [#/Vol] 4.75 10*6/uL Normal 4.6-6.2 [facility] Comment on above: Order Comment: SEND RESULTS TO Performed By: #### L 500.2500, L100.0100 #### [facility] [address] [place], [address] RDW SD 43.8 fl Normal 35.1-43.9 [facility] Comment on above: Order Comment: SEND RESULTS TO Performed By: #### L 500.2500, L100.0100 #### [facility] [address] [place], [address] WBC (Bld) [#/Vol] 6.9 10*3/uL Normal 4.4-11.0 [facility] Comment on above: Order Comment: SEND RESULTS TO Performed By: #### L 500.2500, L100.0100 #### [facility] [address] [place], [address] Lab - Toxicology Resultson 0 12-16-2023 Lab - Toxicology Results [id number] Normal [facility] Drug Test CZGA5mp 12-14-2023 Drug Screen Complete Collected Normal [facility] Comment on above: Performed By: #### 2 [id number] ####[facility] (DEFAULT)[address] [place] [address] Coding Summaryon 12-07-2023 [facility] EfoymlblIBe3iVu+PGhlYWQ+PE1FV WZbV61dmYZlbZ3yQ6FZUMcFUkbbNC USRJjQHoEhoiUvUL8acJJfHWYg IC8+RE5nHQRdPrmocUUtl6C5uIK4A 81pac8sCAwsyDT3IJGlLqCtiljgf9 ngtDm0QIwbPbadXgBb WJEctF63LKC8aE85Mj67qIZlbTZzz 5lpmUr9UdUjXDQnDQJ5qEtwYQvlr1 DiOCRlK20aqZFun5S4 VSUlaYmybWIqIlUjsPX1aA6qFOmot afyv4cdpwcpGml1sj56fURnt8T9yM H9Z6FhybP8BNPsxGYl DydzwEPPlR0zxzvld5kurgndQtDsP CLmUCh0RBp7ZQKslRwbBbTtWJ62EI A0FSSpfnKgB2GaOEZf yZeaMsR5d2S2Hq3OD9XTZorfE8VMU UFSWTwvdGQ+YB65jr73H8WpQbbpNa c2VUQjQCZ0wUW0vX0o ACQrPPkoy2H1rFM2S0BkawOoyt9pw 1laEGToLIpjY05eqUXfu0M1OMCtyA G3KGMmzHvlOrGryH76 Oyc+JEFmnEiwq0HgRtgyf3fio8elh Mp6DfyjJNAizvUlzPacJAW5g2HwOr 0oFADchFW9hKJ2dJ9k WxQfNaG4RRftK936NwOssVYfSmyuE 58qT3EcpTJ+PZNbUrb0DRIbvAahCR 5tE1HgWIEanxkzgPMv lDaiUL2hEBZykpscVNNloJ2tMNRiZ 5q5NsDgEaG8HSrcN3YvJRRbmoyxIs 57zC4nNnWfFdY0KYsn T2MuyeY4WNEvcMBwPEknTGY9A35rz 8U9ITExLSEgFHU8lWU0jH1uvXizcb ogbGVmdDsgdmVydGlj GPeqPQfnT203CGSrsCxcXhAhZLskD yBEYXRlOiAgMDUvMjgvMjAyNDwvdG Q+LSJhBXZ7yKqfZWOy iXDcHXkqEn7jnEuyjRuhZK7rUZNxy zdwNIYniG7kGSAjrLMlsNiwXF1fTK Soodpwv528MhPlTJI0 TXCkiJGdE1EddC7nClMeMWJvKWIgI 4FcaBKdOEmkK078GLduSfY0FOTueq FiE8TlICFzxAjiAnB5 b4H9Yz4Al6BhmvppJ3SmhXKjZaKzH mjmSGa8K4EyZkyvxOU+DS06LGCfLY 57USg4MCB2lQmvUZqd EZXlA9OcsL0oAaBbDHByWEYbCzh+P HRhYmxlIHdpZHRoPScxMDAlJyBzdH loIC3zTk0qMJJgPZBy vJpkfVVtTbCwz8lhVLEmJVrmMG0hu UmaJ3RfkAN0SXMsn6c3Ze26E44hK8 JvdXA+JHEaaQG3fTZ5 cR4oJyHuIqZ8ZJpmT755TfDeuLCcL lmip5bhk7kmlVf7FiA9LWZcwvFoeL ibGPP0b6RsLf90Y17j RJarFBTpCKFiMOTdUOWbaZfyaz7cz G9wIi8+QKFirSY9yRA4gZ2aPnGjTh S0GYnrB984RlVtqTWk Eoquy9sbj1bylPn5EzXrPAQxqjLst DmcXEU2x1GrKk78R5QhvSapa2ZcSf z4hx60lZOcl7J3jMX2 O6PvANCtenlezRWymRjkOQ2iUVCez tfkLCYhrP4dBVShG1o3ThUuUxB2SA tdQ3QidbN0UDFrzTDx TUIvgRTJwU6tqanbm5ovodzvQxNyB FIhCFe6RKc6FOZflEfmKdVaGEG3Hv M2XVV0tTVarC1ohGje aknhvV2gKvp+CRM1oBJwzJPGLN7qH jwvdGQ+EOEeARO1hElxMIfwCQVzoC 5bTIOpO9y6XfEqJqU3 ZVqmP7BzptZ0NAKezEIvOAQjiPAEt B0wiylrf8lcxzfbDpZjSTIsMZj1JF s5CYNvbVodOoDlWPR5 DoV0FIW6uFRjdI3zaFzcnacxzP8vM yc+UsdpaBriYJP0IRp7Y2EiRzq7NV UnoQiwZQ6fvRYsIInr Xu5gvKknmLxsCG6qZDXflyypm849R bRnf7kgCEQtzAJaVFlgVYV8H63kl4 K9OTIzCTQlLKW0hLH2 nS4knAxofofbxYSskIkupsSboIlhS XvdTWvkL594GXUayAzsYuLyOAd5D5 KsZby4VJAdwVcyEX4a eOKiGMlfFt8xvNtkuSwoLT3eYOSwu jain292QsQcr9zjLQXcdWEnPDhxNG Y9J78xm6U1TXJhWSUx AAY0zTT7kB5tmAwcldbxgOCkeNosu tUqnAthAGuiMRjzR849SLVayZbyJt EfiAb0Y0MiCcf2AJJd qTbeGT7nvCTkRQsoXx5osGrqmOhiL V8jNEKqenmbb479MoCzr0clLRCixB BsTFvxMNC9V36bx8K0 JIQgJPCgWDU7sDD6pP8fgDrgdhtbm GZxcXlwmfEjoXahOEwfEGijL134SA RvcDsnPlBhdGllbnQg HBtyPGy1M2SlUtwzuHF+NX46THMrE S20xTFplTBkv3lbjJt8PbNpBTImOA C6iHbzCNoki3ZpZLQc E42bjSDcw5I9QIVlgHrctOCdQiDpr QJ4sK2mGOnmatnzj5dhsvhoShwyy8 fmaf82tO91L27ySXkp OLWfGZNxEOIiXEQoqOdgwo5cmO4tC i8+KGTatSR0pVS6mK9iDKXdWpT5LS kwN997FpMcdXCsTzbe v3rbe3jgpLo7EhF2XHTlpoXgkHvmH SK3c8ZwRe85P93cWXboFRNeBHGwAF OhBIOidIjsgs0eaA5i Ii8+GGCviVR2iRT8dG6rWdAsDxZ1F BshZ216RtMsqHFrQtqlN23sX9FrvY A+KTDjQhl7ANRevXlb NV9wzOPbFMbgSl5cORI8LxFqEgAcB PtxS3UmMHAcsgadxynnzHY2KTIlAY TzmK22Iv0rhVcoXUVu rNIYbF0znrrzx0xkgyezUjJbWVJeO Cy7TRu0WZFjcLrcNbTjVFS6LnE5TD T5eSZrqX7rcNzlzyrq nH3pF8UgKHZfvzvrWj16bN5qGbDpK jN3OAcgTdh+Y0YERE1RZNrtTRPIOs 5PTEQgRlJFREVSSUNL SV31FI32dOAua2A8qPD8H6TgNFYqb lddcenlpAM6MTSxFUGekG72vTMjHA ypLw9pj0I0i739AEVb WZIrsT64Uh9vvDcxZLPpoSKCqP3ro feiv0ilgoycDfNoPDAvCEa3TCi9LW CzoOxwYmAbEZF1NdW8 HDV5oNAprI7tfEyzxeewdI0pIeu+M VGjTdDhJVh4HuvseIH+IPCzPLN4nQ ohEXmiVMLyaN4cOENb R7w9UyHdXvY2QKrnD4YvUYSchaalY s91dP6wZwCwYhX2CRywL1VtxkS1HH LipDVgQXswSZA6Q18l d4L2UECdEVVdBVI0iIB7zM2azGdgp jogbGVmdDsgdmVydGljYWwtYWxpZ2 84UBFhfEinNjQ4HNkn VXEgTT97KS43wGNxw8W5pFK9I6PbC QTeaqdointyfCH5UIVbLHGmeJ96cG UePYcbHr4kb9E9l569 XAPrFODrfI11Jc9nvIvpNHPnlSZKy K0kehpvl8skgblgWnRtXMDdLSk2IH r6MRZweWzcToKfPNS9 LuR8VHP4fOYurD7hfWstzwtunH0iU yc+TUFMRTwvdGQ+FLKmNJG7oFzcYF luFVGzgE2pBSUvJ0d3 FyBkGrW0KJykF0WnZWVpbbkwUh30f W6mVePfXgI6BGahS7SygdU6NAYcmR HtQWotLCA2H88ta1C9 GWMhWIQgYXT1vXX0sU0ncKoiibjhl LTkwAaohtPxzFbvSOncOKblM453BI DrzZkeMhVyPADxHH7u eTwvdGQ+ND92ox92F9VaLfqrIqm7U AWwPOA8uVZ3eC7oFPSySKkxx7X1fT J8J0ZeqlBegt5qb1yl GYWtSJczO26hdACrs6H4YTApyTY8X YQocNewDmVkcU11Osh+PGNvbGdyb3 YpScnkc9llk4gwjPm8 NrSzOYHeggCvoClyGLY2i3KeVt89L 29sIHdpZHRoPSIzMCUiIHZhbGlnbj 9mrR2iCf5+PGNvbCB3 iVE4tR9oGjZwKdL1GLyhA316JkXuo UWeTsmme1sfo3zkgNe9DwHuBSMqyv BxfMvaKLI6p1IsRv79 A4EvrTcvt6IeBli1ak18fRXyq8E4u FS5I6WuTSOmongoiIVhsEckSI4fJJ KmiovlQNDdaF6uWBAn X7d4IvOzQuF6GFhmC5SwjlA8ZONvg ZXcKUPzrFOAmL4qfvzzg0bhdsurGq QlZTAyLQc8ALg1WKKr bOwiAoIyQXQ5LhV7SRT4eZGxaL3cv OjekvbcrJ0eXxi+RUb2s0ihbCPxNY 2lgYU1FK65ML89vSLm g7I5rXF8Z0OkQFBuaxyolzucxXP9V VBtVLSoyR31Nf8uvFrvRp6hXUZmQK Y3YOTliLHyA9BlzC4b KqAwIHDuMRBsO6LqeWAkZYxfK524G LzqJfG9RUMfzvNfR9PcCJGhuPrqPs W8z7J1Ep1YZP00DT13 PL99rLTrt4L3qBW3T8TpVFWmjitwy pmgyGJ9OGDzHVWprE66Ge2glNffHb 9sHSPrFAL1QIZxqMDa M0WunN2iXnImPYOmFHGgK0FgaYKoF WilP223SNokYaC2OOSlbbPaB2GqQK OmsBlcHgY2e7D9Kg2E Tm46JU25OX61lTEar7I6bZR4E2MfR ESbaxtnotrwwWG1RFArAMXymK87Xd 5eiIqxQv0qDRSgSQT3 TWYvcFYpZ5TetP3kRoHcVGHpSNRbP 6WvcRFuHPzzU767JMvoQjD6STSxfe LsF5XnQNNslNyvHaZ0 n5J3Mz1SKObrtnc1F1NqCywzdXE+P A51VTPkMF43fCDaeSThf7ijqTz8To HkCIAfLFF3rJgdBFxb b3J (more content not included)... Normal [facility] ED Clinical Summaryon 2023 ED Clinical Summary [facility] - Emergency Department [address] [place] [address] ED Clinical Summary PERSON INFORMATION Name: MANDYJENIFER JacobBONNY Age: 68 Years Sex: MALE : 1955 MRN: Acct#: Visit Reason: Rib/trunk pain-swelling; RT SIDE PAIN Arrival: 12/04/2023 10:38:51 Discharge: 12/04/2023 12:06:00 LOS: 000 01:28 Check In: 12/04/2023 10:38:51 Checkout:12/04/2023 12:06:00 Address: [address] [place] [address] PCP: Provider, None PROVIDER INFORMATION Provider Role Assigned Unassigned Malena Luo 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 [employer] ED PA 12/04/2023 10:44:48 gNhia October [employer] M[employer] OPERATOR Nurse 12/04/2023 10:49:22 VITALS INFORMATION Vital Sign Triage Latest Temperature Tympanic Temperature Temporal Artery Pulse Rate O2 Sat 96 % 99 % Respiratory Rate 18 br/min 18 br/min Blood Pressure /100 mmHg /100 mmHg MEDICAL INFORMATION Medications Given: Allergy Information: No known allergies PHYSICIAN DOCUMENTATION DISCHARGE INFORMATION: Discharge Disposition: Home Discharge Location: Home PATIENT EDUCATION INFORMATION Instructions: Contusion, Vbne-ve-Brxc Follow-Up: With: Address: When: Provider, Alejandro [address] [place] [address] Within 3 to 5 days Comments: Follow-up with primary care in 3 to 5 days. Please call and make an appointment. May take Tylenol as needed for pain. May place ice to the area up to 3 times a day for 20 minutes at a time for the next 2 days. Return to the emergency room for fever, shortness of breath, or any other worsening symptoms. DIAGNOSIS: 1:Contusion of rib on right side Patient Understands: Yes - Patient/family/caregiver verbalizes understanding of instructions given Comment: Normal [facility] ED Patient Summaryon 024 ED Patient Summary [facility] - Emergency Department [address] [place] [address] PATIENT DISCHARGE INSTRUCTIONS Patient Information Name: BONNY REDDING Jr Age: 68 Years Date of : 1955 Reason For Visit: Rib/trunk pain-swelling; RT SIDE PAIN Arrival Time: 12/04/2023 10:38:51 Primary Care Physician: Provider, None Attending Physician: Bogdan Farah DO Comment: Visit Diagnosis: Diagnoses This Visit Contusion of rib on right side (S20.211A) Rib/trunk pain-swelling ([id number]) The Pharmacy at [facility] is open Wednesday through Wednesday from 9A to 6P and Wednesday and Wednesday from 9A to 5P Prescription Information: If you have been given a prescription for narcotics, seek immediate medical attention if you have any difficulty breathing or any sudden status changes such as confusion and sleepiness. If you or anyone you know is experiencing suicidal thoughts, mental health, alcohol and/or drug addiction problems; contact the [facility] 01/02 Crisis Hotline -Text 8LDJE jt 891475. If you received any narcotics, sedation, or any other medication that causes drowsiness for the next 24 hours, unless otherwise directed: ? Do not drive a car. ? Do not operate machinery such as power tools, lawn mowers, drills, sewing machines, or stoves ? Avoid alcoholic beverages and drugs for allergies, nerves, or sleep ? Do not make important personal or business decisions or sign any legal documents With: Address: When: Provider, Alejandro [address] [place] [address] Within 3 to 5 days Comments: Follow-up with primary care in 3 to 5 days. Please call and make an appointment. May take Tylenol as needed for pain. May place ice to the area up to 3 times a day for 20 minutes at a time for the next 2 days. Return to the emergency room for fever, shortness of breath, or any other worsening symptoms. Medication Information: The exam and treatment you received today in the [facility] Emergency Department were for an urgent problem and are not intended as complete care. It is important for you to follow up with a doctor, nurse practitioner, or physician?s ward assistant for ongoing care. If your symptoms become worse or you do not improve as expected and you are unable to reach your usual health care provider, you should return to the Emergency Department, we are available 24 hours a day. For those patients who have received Radiology results, the interpretation of your X-ray as given to you by our Emergency Department physician is only a preliminary report. The Radiologist will review your films and if there is a change in the diagnosis you will be notified by phone. Please make sure you have provided a working phone number so we can reach you if necessary. In the event that you had a lab culture while you were a patient in the Emergency Department, you will be notified by phone if there is a need to change your antibiotic. Please make sure you have provided a working phone number so we can reach you if necessary. [facility] Emergency Department has provided you with a complete list of medications post discharge. 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 Any specific questions regarding your chronic medications and dosages should be discussed with your primary care physician(s) and/or pharmacist. Additional medications on your home medication list not specifically addressed. Please contact the ordering physician if you have questions about these medications. aspirin (aspirin 81 mg oral capsule) 2 cap(s) Oral (given by mouth) every 4 hours. as needed as needed for pain. not to exceed 12 capsules/day. lovastatin (lovastatin 40 mg oral tablet, extended release) 1 tab(s) Oral (given by mouth) once a day (at bedtime). simvastatin (simvastatin 20 mg oral tablet) 1 tab(s) Oral (given by mouth) once a day (at bedtime). Visit Information Allergies: Substance Reaction Symptoms Type Comments No known allergies Drug Vital Signs: Vitals and Measurements this Visit (last charted value for your 12/04/2023 visit) Vital Signs This Visit Temperature Oral: 36.7 DegC Heart Rate Monitored: 62 bpm Respiratory Rate: 18 br/min Systolic Blood Pressure: 155 mmHg Diastolic Blood Pressure: 72 mmHg SpO2: 99 % Oxygen Therapy: Room air Measurements This Visit Height/Length Measured: 182 cm Weight Measured: 140.61 kg Weight Dosin.610 kg Body Mass Index: 42.45 kg/m2 Problems List: Problem Onset Comments No Problems found Patient Education Contusion A contusion is a deep bruise. This is a result of an injury that causes bleeding under the skin. Symptoms of bruising include pain, swelling, and discolored skin. The skin may turn blue, purple, or yellow. Follow these instructions at home: Managing pain, stiffness (more content not included)... Normal [facility] Progress Note - Nurseon - Progress Note - Nurse Patient is brought to room 4. Patient is alert and oriented X 4. Patient is here for right sided trunk/ rib pain. Patient hurt himself at work last . Was seen in the ER on that day and right arm was relocated by provider. Patient was then placed in a sling and was to followup with orthopedics. Patient rates pain 10/19. Took 1,000 mg of Tylenol this morning. [Electronically Signed on: 12/04/2023 10:56 EDT] Herevia, October RN [Verified on: 12/04/2023 10:56 EDT] RobertaOctober RN [facility] XR Ribs w/ PA Chest Righton 12-04-2023 XR Ribs w/ PA Chest Right EXAMINATION: XR Ribs w/ PA Chest Right REASON FOR EXAM: fall right sided rib pain COMPARISON: No comparisons. TECHNIQUE: Total of 7 views. FINDINGS: Prior mediastinotomy. Heart size upper limits of normal. Mild ectasia of the thoracic aortic arch. There is some scar or atelectasis at both lung bases. No pneumothorax or hemothorax. There is minimally displaced fracture at the anterior portion of the right seventh rib. Old healed fractures are seen involving the right eighth and ninth ribs. IMPRESSION: 1. Findings suggestive of a minimally displaced fracture involving the anterior portion of the right seventh rib near the junction with the costochondral cartilage. 2. Old healed fractures of the right eighth and ninth ribs. 3. No pneumothorax or hemothorax. 4. Atelectasis at lung bases. Final Dictated by: Lee Arnold MD Dictated DT/TM: 12/04/23 11:57 Signed (Electronic Signature): Lee Arnold MD 12/04/23 12:10 p Technologist: Thaddeus CHURCH [facility] Coding Summaryon 2023 Coding Summary HTMLBase 64 TzcbbwhtWXi7pKv+PGhlYWQ+PE1FV VHtY85cgAGhrB4kM2BMLTmDSauaBV PLCOzBUwUarsScZX8ulLUpEZFh IC8+OL1yMOXtSvbepGVvm5L3bOV7O 53ptz7yGFwqsMT0XVScPmTsddztg1 lxsAy5EUrhTfanXcPv REUewD12ISJ3dY32Cx44vOScvZUqu 8pbcKy4YdFhJFSzENC6jJlzAXwey2 RlOPJhB10xrVWza8E2 WHFexTtjjXBzRfXzbWR2rB0rSVqli rsck5mkvzyuLwg9ru19wNZdo8T5zK A2Y3EsdwP2ARTmqEMs PemtoXLVyY3ysejem3nodtdvScAtM TUmYCe2XQh6ICXegDzkMlNiMG81KF W1NLNbhaNoN3RjYLCf eDcaYzF6i9F6Zf9RI6HEGlvgX4URG UFSWTwvdGQ+TA44ln07Q6YyXdmsMn g4YSUcVLA9cWC9uF0d AJTiDWukd0E0pWN5C8DjeaRlxv2sj 1keZKJxUUpnF06ioYCnf0X8SGJqtB K3AVAegLwvFzCuvG01 Oyc+MYRfnJmqa1MnJummp3mkr5bpt Si4PywaCCCqzzTvwGyyQTN6a4UuPj 0kROZqoNC1uMN3xL9c MaNbOsY6WBqfE602KsVdwJTdQmwhF 83hN2HeiMR+LVHbNcd2GYGnnOnkCW 7uB0QlZLUquitmxPPg jBiaUN5iPPOsymtqVEXaxH1sEXRcX 7c7WaWdUdW3YElcZ9NrCZFymkjhWf 15eS2lUyUaMsM4COvd Y1VnnmT6IBAnwLUjPMooDRM0M99ai 6N4MTQrCURvYMO1tAC2gK4vuNcmja ogbGVmdDsgdmVydGlj SEsvXHqdN902CPCxkZtmBmDfYPgnO yBEYXRlOiAgMDUvMjQvMjAyNDwvdG Q+UALcEQD3wBsvTMAt oLRmTSnlVg0rxKemeTwlJK3tQNOoe dgkCPZkdN9pIKOtnURcyJgkUT3dHE Gssydaq998AqPqWYW3 DNOkrHEnT1ZmcR5iOyXdOVRgYTSkC 7KkkCNwRBxmR174FHnmHoN1TQGgzb YtH2LqXLGdgPybAyK0 i0V7Xy4Np0DqdbhlV2FqkGAhTpFrH bsiAPa6Z3McSeugbLB+IG55WTCfUF 61LFw2BHY6eUegKBin ZGRtP4GvfF6tFjVdYSMkBWPcQdw+P HRhYmxlIHdpZHRoPScxMDAlJyBzdH suVA6jJd5lULDfSFKe vPsivQRlVgHnm8ioCGHuSAyrHC5eq StcP0BeuOH4AHQdv5h8Mz14N38hN8 JvdXA+JCOmxOJ6wVB3 aO1hIxXqFkV8TQtmZ324HdBrdDMoL gzum5asb8vmgTk0OxA0DQNbydHchE tcEJJ7a9XgIa81D69h DAbmHBFnSCKnOLEoBWKevEbfxp5hf G9wIi8+IFAmkNX8oXL0lW4rEqHpMq W1BLxfY563TuBntTYq Deefz3hjs3etrQo1IeGdRWFsgyXiy MohWZV7w4PqQt86F7FjpFetd3LxUd g2nd31sAHmh0Q1dEW7 V6KdTAZgfvsphBYlfJsnBI5yDMGar dpvVPOwfG8cGUAnV7o4GbCqRpH0AF fkM5MwycD2FSBieOQh YBKvcUDOdU2gnhniz4tgceuaYvCjB DEeYWn5YIp8SZGiuQpyUoRyBVA8Zp N8WTF8mHChbY9tiXos rewdgS9eQlp+NLR8kBHgyDQIYD0iC jwvdGQ+YSYoFUD4oIfuMOyvYAIkuJ 8fZSGqT0z8NaAtNgI0 NNxbE5FikmC6LWMsaZPzQMEkaENTl F9jmnedc4wvbbdlSoQrCYJmCVv5MW i9SNMloCisDxXtOLN8 WhF2BJY9gOOjtI3qdFwmohtbzQ2bW yc+JnhjoPmmIMT6FGt8B8NaLbx1XM VlyVsnMO6kwWJaKKpg Xw5muWglcQxdXR1uOFSechcdz048K mLuz0izNPOmnYJtDIwbBXX5N32fr9 H2FLMhJKNmBUH6uLD5 nG4tjHiglzdkkSVrxNzmvpTcaIilO RfkWZwtQ654PFTqiCjiOyVzCFx2P5 ZnJxp0DAZitHjcWO4e sNOfLMjzQs8kvMcfgJhaTC1hVPVfq aear583FwHcc6qxEKYgoYMqMWrjLW M2X36sq4G0QQVrLNUb UWO4yHP5pH8psVetwwsubBZvjZnfc rYkgKtjUEvfLGfkM582FNSrlHpzAo EnwRe4F9KoWmp8GNRu pZtfLJ1jwYYcXDzoAa9ohRugcOgnR V2zCFPmrxzud315TqUkd6dmZSHwzR RdRSsaZGC7W61uq5A0 XALpEPVkLHA0mVY4lS7lqApwybche CFfzZmlqzZtcEtvSSneBJpjR328LY RvcDsnPlBhdGllbnQg DDpxMJb5H1AvUrhutOK+HN26PKKyT Q89wMMrnMVcw6zkjAf2HtCyESOcNS J4sWnvDKign6YqUQEy C68ssNRig2X0ISAgnZbraHMtGiQrj DL3rR6uREkjdjfdy9ncajmiCjarv6 scze64eB12B49nHWfo XNEaFDFlDXScDZLmyUorfl4jrS5rY i8+KXKacRK2zRU4zY0uXBBzPjI1DA inC314WmGfuMWrRvyk s7zdr1vjbAh7NqO9FLQtjjTgkFioI WC8u6HcFp29F06vTMdkALHnGBXdWT XoYWHhnSuacw2xoQ6h Ii8+PBJcbTC4jQF7bZ6uFiNgOeL1E CanJ732GcDwpQLwMdqmQ03mL0LlfH A+HNAdLxu4QROwuGcu SB2gtOMyRLlkYq8nZJO6UaGhGzQdQ PruI5JeRARndscghotgrMA2UDXtMV ZrhA29Jm1jkZneCZPy rPJAcI8wiiubu6xloynlNjTuFWIjD Bt3JEd3BWJfwMdwMrGvMAM5NeK2AQ B6qTSgcG4quHlsgwad aY9wL6QlGQZfguayTu67kP2kAmViA oB5MNezAxj+P2MEOH0YJCjaQUVQQs 5PTEQgRlJFREVSSUNL CV70XG63fVQqx5I6jSC2D5ZgBOAem dhnxfxwgPK8RTHpTISpdU37nWFdTO zxOy2lq9W5f351FLFj YEGisG60Oq0ahWgkFHOzxSECmY4ha rtln6qhxcbvXsNvCPUvWXz9ZVy2TW EcsVihFmOiSZV0MxJ7 BOL2pMEvrR4ipLnxdfgkeM6gLkh+M GXtUiIoOKv4WevopUN+ECDjLEN5dT fqBCqnHWLugV2cHXEp N9m1MeDnSdL5MYkcA6QvGEWdsgixW h53bK8fSxLdGuY1JKbuM8TjyfG7QZ LaiTPwARkuQKE6O62b q5T3NENzIDHlEPO0cTV4kV7wrCcwd jogbGVmdDsgdmVydGljYWwtYWxpZ2 52MWJkdOzoBjM5AIly ORHbEW10XZ33lVIrj4O3dAQ7B3GuL FMcmrkopajelRT0LZMiWXLeuY96dX VxDJlvHm3hf1H1z356 PENoVJKacC63Vj6jnPomWSTguHTNb M0rjabho2fqduvtMvLgRQArGQj5TA k9DJMdbKquDxZhDYK1 QaO2DVD4pBXanK5jpNgedixxnF3aP yc+TUFMRTwvdGQ+UKScCYA8kHsiZT xiQOVaaK7cRFEhY5l9 VhLoJaY9XNifE5DcOKRrqoorIg09c X3fRpQkEvJ7PAqsG0DblxV6OAFciB JiZKghUJD0I01rs1V7 CSPkKZEgPWR8lPM8fG3epVctdtijw MKpoVousrHglEacREjtXOetJ459KG GmsNgxLrYjJTCqGR2e eTwvdGQ+QR68zz52M1XpWtvnFpb1S SAgJKQ6sSH3dV7xCWWyEAkhs7V0cF A8I1AnxxJqxb2ul1qy MDVcRDaaV16pyJKvf8K4PZAnsHC7J HBxtHpyUkArrJ94Tik+PGNvbGdyb3 YhHbrpq9ccm3ocaRs8 HqAyRDZevbMfxYwhGPS6p8IaAx68Z 29sIHdpZHRoPSIzMCUiIHZhbGlnbj 8zoG8aVl1+PGNvbCB3 yBJ2dW5sOuNvJjT8HPocB410OsGvm COcAllrx9omz7fvjEk5YwDqHBKaxg OniKqvVXT2p3SjBi21 D8QvfJqar4FhPhv1kf36bTOal7Z8r SZ1R1GiRZUewdldyCFkoKhdMA1oZY XrtmcbPDFdlY0aJSFx L5i7EiVsRuB5IRxdO2DyrkT4VBOop QEsWLUmjCDKuS9mqgtjy2bhedjbTv LbOOEuRAm8RTi9UNKv rYvqLeUpZJC1BaP8SCJ8dGOrtV2no YqwcbdfbQ2xGix+SGd7b1aceKRtAY 7zmZW7UL77ZF64vMNa q2O9cQX4D7OpPFMpfyczxpjgpZV9G NNyBBTpsT37Pw4pxFahNb8sXPBhPU R5OQSqzUSbF8LjwW1e AbUoPYFnVBMzD1PbbMFfKGdlL636U YioGwI5TWXxkbOmG1CuPCYfmMrtLs H4y2W4Nk4ASZ92TJ10 TR49qYQlh2S0cFX6W2GuFYQlgbimp meptAR3ZKQrJVCuuM44Ks8jiAqnMy 7zIYXxSAP2QRHydBLx Z2EqfA3tYwVsFQGiSIEnK4IexLEsI FkyK659LYhiErX1GCCmukUkG4GeLI OdiIvaBeM7l4P6Eq1F Ip14MT50EU44fPXnp5A0kDF2I2UxD FRgivzodqmswXS3DYGiLJKdzV76Ca 6uiXkrIu8kMHFsFKY1 NMBafIGsO5BisP8wElDxJDVdDYOtC 7RtpTZhPTkiQ662AQjiNpD0BNLshk UnK2KcUGHcnOzxXnV8 i2P8Ac5BOUllljn8C3NiFsrhuOX+P H62RHMzBX60iUSieAFmv8hniBd8Pz OwTPYyJLM8wFwiZVfh b3J (more content not included)... Normal [facility] ED Clinical Summaryon 2023 ED Clinical Summary [facility] - Emergency Department [address] [place], [place] [id number] ED Clinical Summary PERSON INFORMATION Name: BONNY REDDING Jr Age: 68 Years Sex: MALE : 1955 MRN: Acct#: Visit Reason: Shoulder injury - Major; FALL RT SHOULDER PAIN Arrival: 12/02/2023 18:13:33 Discharge: 12/02/2023 19:49:00 LOS: 000 01:36 Check In: 12/02/2023 18:13:33 Checkout:12/02/2023 19:49:00 Address: [facility] [place] [address] PCP: Provider, None PROVIDER INFORMATION Provider Role Assigned Unassigned Mario Ferreira MD ED Provider 12/02/2023 18:18:54 Scotty Aleman [employer] OPERATOR Nurse 12/02/2023 18:27:35 Myra Umaña [employer] OPERATOR Nurse 12/02/2023 19:09:24 VITALS INFORMATION Vital Sign Triage Latest Temperature Tympanic Temperature Temporal Artery Pulse Rate 88 bpm 88 bpm O2 Sat 98 % 98 % Respiratory Rate 16 br/min 16 br/min Blood Pressure /100 mmHg /100 mmHg MEDICAL INFORMATION Medications Given: Allergy Information: No known allergies PHYSICIAN DOCUMENTATION Patient: BONNY REDDING Age: 68 years Sex: MALE : 1955 Associated Diagnoses: Anterior dislocation of right shoulder Author: Mario Ferreira MD Basic Information Time seen: Date & time 12/02/2023 18:20:00. History source: Patient, EMS. Arrival mode: Ambulance. History limitation: None. Additional information: Chief Complaint from Nursing Triage Note : Chief Complaint 12/02/2023 18:27 EDT Chief Complaint Right shoulder injury . History of Present Illness 68-year-old male presented to ER for evaluation of injury to right shoulder. Patient brought to ED by EMS. On arrival to ER, the patient was awake, appears to be in pain at the right shoulder area. GCS of 15. Tells me that he was at work. Stated that he was carrying an item. Stepped over a piece of rolling concrete, lost balance and fell forward. Did not have significant recollection regarding to his shoulder, possible overextension during the fall. Recall having immediate right shoulder pain. Denies head injury. No chest pain. No abdominal pain. No lower extremity pain. Patient brought to ER for further evaluation. Review of Systems Constitutional symptoms: Negative except as documented in HPI. Skin symptoms: Abrasions. Respiratory symptoms: No shortness of breath, Cardiovascular symptoms: No chest pain, Gastrointestinal symptoms: No abdominal pain, Musculoskeletal symptoms: Muscle pain, Joint pain, No back pain, Neurologic symptoms: No numbness, no tingling. Health Status Allergies: Allergic Reactions (Selected) No known allergies. Past Medical/ Family/ Social History Medical history: No active or resolved past medical history items have been selected or recorded., Reviewed as documented in chart. Surgical history: No active procedure history items have been selected or recorded., Reviewed as documented in chart. Family history: No family history items have been selected or recorded., Reviewed as documented in chart. Social history: Social & Psychosocial Habits Alcohol 12/02/2023 Alcohol Use: Never Substance Use 12/02/2023 Substance use: Never Tobacco 12/02/2023 Smoking tobacco use: Never tobacco user Electronic Cigarette/Vaping 12/02/2023 Electronic Cigarette Use: Never , Reviewed as documented in chart. Problem list: No qualifying data available , per nurse's notes. Physical Examination Vital Signs Vital Signs 12/02/2023 18:27 EDT Temperature Oral 36 DegC Peripheral Pulse Rate 88 bpm Respiratory Rate 16 br/min SpO2 98 % Oxygen Therapy Room air . Measurements 12/02/2023 18:27 EDT Height 182 cm Weight 140 kg Weight Dosing 140.000 kg Body Mass Index Measured 42.27 kg/m2 . General: Alert, Awake, alert, appropriate 68-year-old male, right shoulder pain. Skin: Warm, dry, intact, Few superficial abrasion, nothing significant. Head: Normocephalic, atraumatic. Neck: No tenderness. Eye: Normal conjunctiva. Ears, nose, mouth and throat: No injuries. Gastrointestinal: Soft, Nontender. Back: Normal range of motion. Musculoskeletal: The patient was sitting on gurney, 1 leg over the side, his left hand, holding his right wrist. Protected of the right shoulder area, indicating pain to the region. On palpation, I detect a sulcus sign. Clavicle stable. Scapula nontender. Elbow normal, forearm unremarkable. Wrist movement is normal. Radial pulse intact. Neurologically intact., Limited range of motion of the right shoulder due to pain. The other extremity not show any signs of injury. Neurological: Alert and oriented to person, place, time, and situation, No focal neurological deficit observed. Psychiatric: Cooperative. Medical Decision Making Differential Diagnosis: Contusion, sprain, rotator cuff injury, strain, fracture, humerus, fracture, clavicle, fracture, scapula, fracture, acromion, shoulder separation, dislocation, anterior. Orders Launch Orders Patient Care: Brace/Splin (more content not included)... Normal [facility] ED Note - Physicianon 2023 ED Note - Physician Patient: JUSTA REDDING Age: 68 years Sex: MALE : 1955 Associated Diagnoses: Anterior dislocation of right shoulder Author: Mario Ferreira MD Basic Information Time seen: Date & time 12/02/2023 18:20:00. History source: Patient, EMS. Arrival mode: Ambulance. History limitation: None. Additional information: Chief Complaint from Nursing Triage Note : Chief Complaint 12/02/2023 18:27 EDT Chief Complaint Right shoulder injury . History of Present Illness 68-year-old male presented to ER for evaluation of injury to right shoulder. Patient brought to ED by EMS. On arrival to ER, the patient was awake, appears to be in pain at the right shoulder area. GCS of 15. Tells me that he was at work. Stated that he was carrying an item. Stepped over a piece of rolling concrete, lost balance and fell forward. Did not have significant recollection regarding to his shoulder, possible overextension during the fall. Recall having immediate right shoulder pain. Denies head injury. No chest pain. No abdominal pain. No lower extremity pain. Patient brought to ER for further evaluation. Review of Systems Constitutional symptoms: Negative except as documented in HPI. Skin symptoms: Abrasions. Respiratory symptoms: No shortness of breath, Cardiovascular symptoms: No chest pain, Gastrointestinal symptoms: No abdominal pain, Musculoskeletal symptoms: Muscle pain, Joint pain, No back pain, Neurologic symptoms: No numbness, no tingling. Health Status Allergies: Allergic Reactions (Selected) No known allergies. Past Medical/ Family/ Social History Medical history: No active or resolved past medical history items have been selected or recorded., Reviewed as documented in chart. Surgical history: No active procedure history items have been selected or recorded., Reviewed as documented in chart. Family history: No family history items have been selected or recorded., Reviewed as documented in chart. Social history: Social & Psychosocial Habits Alcohol 12/02/2023 Alcohol Use: Never Substance Use 12/02/2023 Substance use: Never Tobacco 12/02/2023 Smoking tobacco use: Never tobacco user Electronic Cigarette/Vaping 12/02/2023 Electronic Cigarette Use: Never , Reviewed as documented in chart. Problem list: No qualifying data available , per nurse's notes. Physical Examination Vital Signs Vital Signs 12/02/2023 18:27 EDT Temperature Oral 36 DegC Peripheral Pulse Rate 88 bpm Respiratory Rate 16 br/min SpO2 98 % Oxygen Therapy Room air . Measurements 12/02/2023 18:27 EDT Height 182 cm Weight 140 kg Weight Dosing 140.000 kg Body Mass Index Measured 42.27 kg/m2 . General: Alert, Awake, alert, appropriate 68-year-old male, right shoulder pain. Skin: Warm, dry, intact, Few superficial abrasion, nothing significant. Head: Normocephalic, atraumatic. Neck: No tenderness. Eye: Normal conjunctiva. Ears, nose, mouth and throat: No injuries. Gastrointestinal: Soft, Nontender. Back: Normal range of motion. Musculoskeletal: The patient was sitting on gurney, 1 leg over the side, his left hand, holding his right wrist. Protected of the right shoulder area, indicating pain to the region. On palpation, I detect a sulcus sign. Clavicle stable. Scapula nontender. Elbow normal, forearm unremarkable. Wrist movement is normal. Radial pulse intact. Neurologically intact., Limited range of motion of the right shoulder due to pain. The other extremity not show any signs of injury. Neurological: Alert and oriented to person, place, time, and situation, No focal neurological deficit observed. Psychiatric: Cooperative. Medical Decision Making Differential Diagnosis: Contusion, sprain, rotator cuff injury, strain, fracture, humerus, fracture, clavicle, fracture, scapula, fracture, acromion, shoulder separation, dislocation, anterior. Orders Launch Orders Patient Care: Brace/Splint ED (Order): 12/02/2023 18:36 EDT, Sling Radiology: XR Shoulder Complete Right (Order): 12/02/2023 18:36 EDT Stat, s/p close reduction, Allow Modification Per Radiologist, Transport Mode: Wheelchair. Radiology results: X-ray (ST) X-Ray: ? XR Shoulder Complete Right * Preliminary * ? 12/02/23 19:12:32 NEGATIVE: No fracture, dislocation or other acute abnormality ? Read By: Mario Ferreira MD . Reexamination/ Reevaluation Relevant differential diagnosis: Sprain, strain, contusion, fracture, dislocation. Number and complexity of problems: Patient presented to ER with an acute pain at right shoulder after a fall. On examination, tenderness elicited on exam. Yes deformity. Mobility, range of motion, limited due to tenderness and pain. Appropriate color. No ischemia. Normal capillary refill. Not ischemic in nature. Neurologically intact. Sensory intact. After the initial arrival, and my examination, suspect that he has an anterior dislocation. With the patient sitting at bedside, with his coworker bed (more content not included)... Normal [facility] ED Patient Summaryon 024 ED Patient Summary [facility] - Emergency Department [address] [place] [address] PATIENT DISCHARGE INSTRUCTIONS Patient Information Name: BONNY REDDING Jr Age: 68 Years Date of : 1955 [facility]: [id number] Reason For Visit: Shoulder injury - Major; FALL RT SHOULDER PAIN Arrival Time: 12/02/2023 18:13:33 Primary Care Physician: Provider, None Attending Physician: Mario Ferreira MD Comment: Visit Diagnosis: Diagnoses This Visit Anterior dislocation of right shoulder (S43.014A) Shoulder injury - Major ([id number]) The Pharmacy at [facility] [place] [facility] is open Wednesday through Wednesday from 9A to 6P and Wednesday and Wednesday from 9A to 5P Prescription Information: If you have been given a prescription for narcotics, seek immediate medical attention if you have any difficulty breathing or any sudden status changes such as confusion and sleepiness. If you or anyone you know is experiencing suicidal thoughts, mental health, alcohol and/or drug addiction problems; contact the [facility] 01/02 Crisis Hotline -Text 3UPRS to 253960. If you received any narcotics, sedation, or any other medication that causes drowsiness for the next 24 hours, unless otherwise directed: ? Do not drive a car. ? Do not operate machinery such as power tools, lawn mowers, drills, sewing machines, or stoves ? Avoid alcoholic beverages and drugs for allergies, nerves, or sleep ? Do not make important personal or business decisions or sign any legal documents With: Address: When: Follow up with specialist Within 3 to 5 days Comments: Reviewed discharge care instruction. Continue with therapy as outlined by Dr. Ferreira. Wear sling for support and reminder. Do not reach or open reach. May take 2 tablet of extra strength Tylenol 3 times a day as needed for pain. May apply cold compress to the affected area. Sleeping in elevated head of bed position may be helpful. Contact orthopedic surgeon for follow-up within the recommended time. Return to ER for any worsening symptoms especially any symptom that concerns you. Medication Information: The exam and treatment you received today in the [facility] [place] [facility] Emergency Department were for an urgent problem and are not intended as complete care. It is important for you to follow up with a doctor, nurse practitioner, or physician?s ward assistant for ongoing care. If your symptoms become worse or you do not improve as expected and you are unable to reach your usual health care provider, you should return to the Emergency Department, we are available 24 hours a day. For those patients who have received Radiology results, the interpretation of your X-ray as given to you by our Emergency Department physician is only a preliminary report. The Radiologist will review your films and if there is a change in the diagnosis you will be notified by phone. Please make sure you have provided a working phone number so we can reach you if necessary. In the event that you had a lab culture while you were a patient in the Emergency Department, you will be notified by phone if there is a need to change your antibiotic. Please make sure you have provided a working phone number so we can reach you if necessary. [facility] Emergency Department has provided you with a complete list of medications post discharge. 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 Any specific questions regarding your chronic medications and dosages should be discussed with your primary care physician(s) and/or pharmacist. Additional medications on your home medication list not specifically addressed. Please contact the ordering physician if you have questions about these medications. aspirin (aspirin 81 mg oral capsule) 2 cap(s) Oral (given by mouth) every 4 hours. as needed as needed for pain. not to exceed 12 capsules/day. lovastatin (lovastatin 40 mg oral tablet, extended release) 1 tab(s) Oral (given by mouth) once a day (at bedtime). simvastatin (simvastatin 20 mg oral tablet) 1 tab(s) Oral (given by mouth) once a day (at bedtime). Visit Information Allergies: Substance Reaction Symptoms Type Comments No known allergies Drug Vital Signs: Vitals and Measurements this Visit (last charted value for your 12/02/2023 visit) Vital Signs This Visit Temperature Oral: 36 DegC Peripheral Pulse Rate: 88 bpm Respiratory Rate: 16 br/min Systolic Blood Pressure: 150 mmHg Diastolic Blood Pressure: 100 mmHg SpO2: 98 % Oxygen Therapy: Room air Measurements This Visit Height/Length Measured: 182 cm Weight Measured: 140 kg Weight Dosin.000 kg Body Mass Index: 42.27 kg/m2 Problems List: Problem Onset Comments No Problems found Patient Education How to Use a Sling A sling is a type of hanging bandage. You wear it around your nec (more content not included)... Normal [facility] XR Shoulder Complete Righton 12-02-2023 XR Shoulder Complete Right IMAGES REVIEWED: XR Shoulder Complete Right COMPARISON: None available. CLINICAL INDICATION: s/p close reduction FINDINGS/IMPRESSION: 1. No dislocation at this time. 2. A small calcific density adjacent to the greater tuberosity on the first view may represent calcific tendinosis of the rotator cuff. 3. On the second view a small density adjacent to the inferior glenoid could questionably represent a small age-indeterminate bony Bankart lesion. 4. Moderate-severe osteoarthritis right AC joint. 5. Right shoulder otherwise appears intact. Final Dictated by: Juan Luis Elaine MD Dictated DT/TM: 12/02/23 8:03 Signed (Electronic Signature): Juan Luis Elaine MD 12/02/23 8:04 pm Technologist: LATOYA [facility] Absolute lymphocyte countOrd ered By: Jeny Allen on 02-11-2023 Lymphocytes Auto (Unsp spec) [#/Vol] 1.24 10*3/uL 0.83-4.51 [facility] Basophil percentageOrdered B y: Jeny Allen on 02-11-2023 Basophils/100 WBC (Bld) 0.7 % 0-1 [facility] Eosinophils/100 WBC (Bld) 3.1 % 0-5 [facility] Neutrophils (Bld) [#/Vol] 2.6 10*3/uL 2.0-7.7 [facility] Neutrophils/100 WBC (Bld) 58.4 % 47-70 [facility] WBC (Bld) [#/Vol] 4.5 10*3/uL 4.4-11.0 [facility] Blood erythrocytes count (nu mber/volume)Ordered By: Jeny Allen on 02-11-2023 RBC (Bld) [#/Vol] 4.66 10*6/uL 4.6-6.2 [facility] Blood hemoglobin measurement (mass/volume)Ordered By: Jeny Allen on 02-11-2023 Hemoglobin (Bld) [Mass/Vol] 14.5 g/dL 13.0-16.5 [facility] [facility] Blood lymphocytes/100 leukoc ytesOrdered By: Jeny Allen on 02-11-2023 Lymphocytes/100 WBC (Bld) 27.9 % 19-41 [facility] Blood monocytes/100 leukocyt esOrdered By: Jeny Allen on 02-11-2023 Monocytes/100 WBC (Bld) 9.2 % 0-10 [facility] Blood platelet mean volumeOr dered By: Jeny Allen on 02-11-2023 Platelet mean volume (Bld) [Entitic vol] 10.1 fL 6.2-12.0 [facility] Determination of erythrocyte mean corpuscular volume (MCV)Ordered By: Jeny Allen on 02-11-2023 MCV (RBC) [Entitic vol] 93.1 fL 80-94 [facility] Hematocrit Auto (Bld) [Volum e fraction]Ordered By: Jeny Allen on 02-11-2023 Hematocrit (Bld) [Volume fraction] 43.4 % 40-54 [facility] Laboratory - Hematology and Cell countsOrdered By: Jeny Allen on 02-11-2023 Erythrocyte distribution width (RBC) [Entitic vol] 45.2 fL 35.1-43.9 [facility] Erythrocyte distribution width (RBC) [Ratio] 13.2 % 11.6-14.6 [facility] Immature granulocytes/100 WBC (Bld) 0.700 % 0.0-0.9 [facility] Comment on above: IG% - Immature Granu locytes (promyelocytes, myelocytes and metamyelocytes) > 1% indicates that a LEFT SHIFT is Present. MCH (RBC) [Entitic mass] 31.1 pg 27.0-32.0 [facility] Nucleated RBC/100 WBC (Bld) [Ratio] 0 % 0-5 [facility] MCHC Auto (RBC) [Mass/Vol]Or dered By: Jeny Allen on 02-11-2023 MCHC (RBC) [Mass/Vol] 33.4 g/dL 32-36 [facility] Platelets bldOrdered By: Sultana Allen on 02-11-2023 Platelets (Bld) [#/Vol] 189 10*3/uL 150-[address] [facility] [address] LOWER EXTREMITY RT WOon 0 12-14-2022 CT LOWER EXTREMITY RT [place] [address] Patient: BONNY REDDING Phone#: : 1955 Age: 67 Gender: M Pt. Type: Out Account: [id number] Location: Ordering: JACKSON MERA Exam Date: 12/14/2022/14:16 Family Phys: Charge Code: 723137 Physician: Armstrong Order #: [id number] Dose#: PROCEDURE: CT LOWER EXTREMITY RT WO CONTRAST COMPARISON: None. INDICATIONS: Conformis. TECHNIQUE: Multi-planar CT images were created without intravenous contrast. All CT scans at this facility use dose modulation, iterative reconstruction, and/or weight based dosing when appropriate to reduce radiation dose to as low as reasonably achievable. IV CONTRAST: No IV contrast used,ml TOTAL DOSE: 50.2 CTDIvol(mGy) FINDINGS: BONES: Medial compartment and patellofemoral compartment joint space loss. Medial femoral condyle and medial tibial plateau spurring. Spurring of the lateral patellar facet. Two surgical screws traverse the length of calcaneus. Surgical hardware at the lateral malleolus. SOFT TISSUES: Negative. No visible soft tissue swelling. EFFUSION: Trace suprapatellar effusion. OTHER: Atherosclerotic calcifications of the popliteal and calf arteries. Serpiginous opacities in the subcutaneous tissues, most likely represent varicosities. CONCLUSION: 1. Medial and patellofemoral compartment joint space loss and spurring Dictated by: Arleen Hargrove MD on 12/14/2022 at 17:03 Approved by: Arleen Hargrove MD on 12/14/2022 at 17:12 Normal [facility] Absolute lymphocyte countOrd ered By: Jeny Allen on 10-27-2022 Lymphocytes Auto (Unsp spec) [#/Vol] 1.43 10*3/uL 0.83-4.51 [facility] Basophil percentageOrdered B y: Jeny Allen on 10-27-2022 Basophils/100 WBC (Bld) 0.6 % 0-1 [facility] Chloride [Moles/Vol] 108 mmol/L 98-107 [facility] Eosinophils/100 WBC (Bld) 3.7 % 0-5 [facility] Glucose [Mass/Vol] 108 mg/dL 74-106 [facility] Comment on above: Fasting Glucose resu lt from 100 to 125 mg/dL suggests IMPAIRED HOMEOSTASIS per A.D.A. criteria. Neutrophils (Bld) [#/Vol] 3.0 10*3/uL 2.0-7.7 [facility] Neutrophils/100 WBC (Bld) 55.7 % 47-70 [facility] Potassium [Moles/Vol] 4.2 mmol/L 3.5-5.1 [facility] Sodium [Moles/Vol] 138 mmol/L 136-145 [facility] WBC (Bld) [#/Vol] 5.5 10*3/uL 4.4-11.0 [facility] Blood erythrocytes count (nu mber/volume)Ordered By: Jeny Allen on 10-27-2022 RBC (Bld) [#/Vol] 4.89 10*6/uL 4.6-6.2 [facility] Blood hemoglobin measurement (mass/volume)Ordered By: Jeny Allen on 10-27-2022 Hemoglobin (Bld) [Mass/Vol] 15.1 g/dL 13.0-16.5 [facility] Blood lymphocytes/100 leukoc ytesOrdered By: Jeny Allen on 10-27-2022 Lymphocytes/100 WBC (Bld) 26.2 % 19-41 [facility] Blood monocytes/100 leukocyt esOrdered By: Jeny Allen on 10-27-2022 Monocytes/100 WBC (Bld) 13.4 % 0-10 [facility] Blood platelet mean volumeOr dered By: Jeny Allen on 10-27-2022 Platelet mean volume (Bld) [Entitic vol] 10.0 fL 6.2-12.0 [facility] Determination of erythrocyte mean corpuscular volume (MCV)Ordered By: Jeny Allen on 10-27-2022 MCV (RBC) [Entitic vol] 95.5 fL 80-94 [facility] Hematocrit Auto (Bld) [Volum e fraction]Ordered By: Jeny Allen on 10-27-2022 Hematocrit (Bld) [Volume fraction] 46.7 % 40-54 [facility] Laboratory - Chemistry and C hemistry - challengeOrdered By: Jeny Allen on 10-27-2022 CO2 [Moles/Vol] 27.0 mmol/L 21.0-32.0 [facility] Urea nitrogen/Creatinine [Mass ratio] 14.0 mg/mg 10-20 [facility] Laboratory - Hematology and Cell countsOrdered By: Jeny Allen on 10-27-2022 Erythrocyte distribution width (RBC) [Entitic vol] 48.0 fL 35.1-43.9 [facility] Erythrocyte distribution width (RBC) [Ratio] 13.5 % 11.6-14.6 [facility] Immature granulocytes/100 WBC (Bld) 0.400 % 0.0-0.9 [facility] Comment on above: IG% - Immature Granu locytes (promyelocytes, myelocytes and metamyelocytes) > 1% indicates that a LEFT SHIFT is Present. MCH (RBC) [Entitic mass] 30.9 pg 27.0-32.0 [facility] Nucleated RBC/100 WBC (Bld) [Ratio] 0 % 0-5 [facility] MCHC Auto (RBC) [Mass/Vol]Or dered By: Jeny Allen on 10-27-2022 MCHC (RBC) [Mass/Vol] 32.3 g/dL 32-36 [facility] No Panel InformationOrdered By: Jeny Allen on 10-27-2022 Estimated GFR (MDRD) Amer 89 mL/min >60 [facility] Comment on above: GFR Calc Estimated GFR (MDRD) Non-Af Amer 74 mL/min >60 [facility] Comment on above: Non- GFR Calc Platelets bldOrdered By: Sultana Allen on 10-27-2022 Platelets (Bld) [#/Vol] 192 10*3/uL 150-450 [facility] Serum or plasma calcium go urement (mass/volume)Ordered By: Jeny Allen on 10-27-2022 Calcium [Mass/Vol] 9.7 mg/dL 8.5-10.1 [facility] Serum or plasma creatinine m easurement (mass/volume)Ordered By: Jeny Allen on 10-27-2022 Creatinine [Mass/Vol] 1.07 mg/dL 0.70-1.30 [facility] Comment on above: The validity of the calculated GFR & GFRAA in patients over 70 years has not been determined. Clinical correlation is essential. Serum or plasma urea nitroge n measurement (mass/volume)Ordered By: Jeny Allen on 10-27-2022 Urea nitrogen [Mass/Vol] 15 mg/dL -18 [facility] Thin prep Papanicolaou smear with manual screeningOrdered By: Jeny Allen on 10-27-2022 Thin prep Papanicolaou smear with manual screening 3 5-15 [facility] Whole blood hemoglobin A1c/t otal hemoglobin ratio (mass fraction)Ordered By: Jeny Allen on 10-27-2022 HbA1c (Bld) [Mass fraction] 5.5 % 3.8-5.6 [facility] Comment on above: Normal < 5.7 % Predi abetic 5.7 - 6.4 % Diabetic >or= 6.5 % Please note range changes. CT LOWER EXTREMITY LT WOon 0 09-29-2022 CT LOWER EXTREMITY LT WO [facility] [address] [place], [place] [address] Patient: BONNY REDDING Phone#: : [phone] Age: 66 Gender: M Pt. Type: Out Account: [id number] Location: Ordering: JACKSON MERA Exam Date: 09/29/2022/14:25 Family Phys: DESHAWN NOEL Charge Code: [id number] Physician: Armstrong Order #: [id number] Dose#: [id number] PROCEDURE: CT LOWER EXTREMITY LT WO CONTRAST COMPARISON: None. INDICATIONS: Conformis. TECHNIQUE: Multi-planar CT images were created without intravenous contrast. All CT scans at this facility use dose modulation, iterative reconstruction, and/or weight based dosing when appropriate to reduce radiation dose to as low as reasonably achievable. IV CONTRAST: No IV contrast used,0ml TOTAL DOSE: 44.90 CTDIvol(mGy) FINDINGS: BONES: Moderate degenerative changes of the knee are present. The medial compartment and patellofemoral compartments are narrowed. Osteophytes are present at the posterior patella, medial femoral condyle and tibial plateau. Vacuum phenomenon is present in the medial compartment. SOFT TISSUES: No visible soft tissue swelling. Vascular calcifications are present. EFFUSION: None visible. OTHER: Negative. CONCLUSION: 1. Moderate degenerative changes are present. Dictated by: Jessica Rose MD on 09/29/2022 at 15:25 Approved by: Jessica Rose MD on 09/29/2022 at 15:31 Normal [facility] STREP A MOLECULAR (POC)on Procedural Control Valid [facility] Strep A (POCT) Negative Negative [facility] XR Chest PA and Lateralon IMPRESSION: Resolution of previously described groundglass opacities in the left lower lung. Interstitial prominence appears unchanged. Paper Pattern Inspector: JAMEL Transcribe Date/Time: Jul 08 2021 1:28P Dictated by : MALENA MATHUR MD This examination was interpreted and the report reviewed and electronically signed by: MALENA MATHUR MD on Jul 08 2021 1:33PM [facility] DIVISION OF RADIOLOGY * * *Final Report* * * DATE OF EXAM: Jul 08 2021 1:27PM WOX 5291 - XR CHEST 2V FRONTAL/LAT / PROCEDURE REASON: multiple diagnoses * * * * Physician Interpretation * * * * EXAMINATION: CHEST RADIOGRAPH (2 VIEW FRONTAL & LATERAL) CLINICAL HISTORY: Bronchitis Abnormal chest x-ray MQ: XC2_6 EXAM DATE/TIME: 07/08/2021 1:27 PM COMPARISON: Chest x-ray 06/07/2021 and 07/29/2020 RESULT: Lines, tubes, and devices: None. Lungs and pleura: Stable interstitial prominence in the lower lungs. Resolution of previously described groundglass opacities in the left lower lung. No consolidation. No pleural effusion or pneumothorax. Cardiomediastinal silhouette: Stable cardiomediastinal silhouette. Bones and soft tissues: Median sternotomy wires are noted. DIVISION OF RADIOLOGY Provider, [facility] - 07/08/2021 * * *Final Report* * * DATE OF EXAM: Jul 08 2021 1:27PM WOX 5291 - XR CHEST 2V FRONTAL/LAT / PROCEDURE REASON: multiple diagnoses * * * * Physician Interpretation * * * * EXAMINATION: CHEST RADIOGRAPH (2 VIEW FRONTAL & LATERAL) CLINICAL HISTORY: Bronchitis Abnormal chest x-ray MQ: XC2_6 EXAM DATE/TIME: 07/08/2021 1:27 PM COMPARISON: Chest x-ray 06/07/2021 and 07/29/2020 RESULT: Lines, tubes, and devices: None. Lungs and pleura: Stable interstitial prominence in the lower lungs. Resolution of previously described groundglass opacities in the left lower lung. No consolidation. No pleural effusion or pneumothorax. Cardiomediastinal silhouette: Stable cardiomediastinal silhouette. Bones and soft tissues: Median sternotomy wires are noted. IMPRESSION IMPRESSION: Resolution of previously described groundglass opacities in the left lower lung. Interstitial prominence appears unchanged. Paper Pattern Inspector: JAMEL Transcribe Date/Time: Jul 08 2021 1:28P Dictated by : MALENA MATHUR MD This examination was interpreted and the report reviewed and electronically signed by: MALENA MATHUR MD on Jul 08 2021 1:33PM EST [facility] Radiology Study observation (narrative) [facility] XR Chest PA and LateralOrder ed By: [facility] Provider on 07-08-2021 [facility] XR Chest PA and Lateralon IMPRESSION: Nonspecific bibasilar parenchymal and groundglass changes as described above. A follow-up exam is recommended. Paper Pattern Inspector: JAMEL Transcribe Date/Time: Jun 07 2021 9:59A Dictated by : BRIANA AMBRIZ MD This examination was interpreted and the report reviewed and electronically signed by: BRIANA AMBRIZ MD on Jun 07 2021 10:01AM [facility] DIVISION OF RADIOLOGY * * *Final Report* * * DATE OF EXAM: Jun 07 2021 9:44AM WOX 5291 - XR CHEST 2V FRONTAL/LAT / PROCEDURE REASON: Cough * * * * Physician Interpretation * * * * EXAMINATION: CHEST RADIOGRAPH (2 VIEW FRONTAL & LATERAL) CLINICAL HISTORY: Cough MQ: XC2_6 EXAM DATE/TIME: 06/07/2021 9:44 AM COMPARISON: 07/29/2020 RESULT: Lines, tubes, and devices: None. Lungs and pleura: There are increased lung markings in both lung bases which may be related to mild changes of bronchitis. Vague peripheral left lung groundglass changes due to viral bronchopneumonia cannot be excluded. No consolidation. No lung mass. No pleural effusion. No pneumothorax. Cardiomediastinal silhouette: Normal cardiomediastinal silhouette with changes of prior median sternotomy with an aortic valve prosthesis is in place. Bones and soft tissues: Unremarkable. DIVISION OF RADIOLOGY Provider, [facility] Jerald [facility] - 06/07/2021 * * *Final Report* * * DATE OF EXAM: Jun 07 2021 9:44AM WOX 5291 - XR CHEST 2V FRONTAL/LAT / PROCEDURE REASON: Cough * * * * Physician Interpretation * * * * EXAMINATION: CHEST RADIOGRAPH (2 VIEW FRONTAL & LATERAL) CLINICAL HISTORY: Cough MQ: XC2_6 EXAM DATE/TIME: 06/07/2021 9:44 AM COMPARISON: 07/29/2020 RESULT: Lines, tubes, and devices: None. Lungs and pleura: There are increased lung markings in both lung bases which may be related to mild changes of bronchitis. Vague peripheral left lung groundglass changes due to viral bronchopneumonia cannot be excluded. No consolidation. No lung mass. No pleural effusion. No pneumothorax. Cardiomediastinal silhouette: Normal cardiomediastinal silhouette with changes of prior median sternotomy with an aortic valve prosthesis is in place. Bones and soft tissues: Unremarkable. IMPRESSION IMPRESSION: Nonspecific bibasilar parenchymal and groundglass changes as described above. A follow-up exam is recommended. Paper Pattern Inspector: JAMEL Transcribe Date/Time: Jun 07 2021 9:59A Dictated by : BRIANA AMBRIZ MD This examination was interpreted and the report reviewed and electronically signed by: BRIANA AMBRIZ MD on Jun 07 2021 10:01AM [facility] Radiology Study observation (narrative) [facility] XR Chest PA and LateralOrder ed By: [facility] Provider on 06-07-2021 [facility] XR Chest PA and Lateralon IMPRESSION: Stable chest. No acute cardiopulmonary process. Paper Pattern Inspector: JAMEL Transcribe Date/Time: Jul 29 2020 4:37P Dictated by : JOHAN MATHIS MD This examination was interpreted and the report reviewed and electronically signed by: JOHAN MATHIS MD on Jul 29 2020 4:40PM [facility] DIVISION OF RADIOLOGY * * *Final Report* * * DATE OF EXAM: Jul 29 2020 4:28PM WOX 5291 - XR CHEST 2V FRONTAL/LAT / PROCEDURE REASON: Chronic cough * * * * Physician Interpretation * * * * EXAMINATION: CHEST RADIOGRAPH (2 VIEW FRONTAL & LATERAL) CLINICAL HISTORY: Chronic cough MQ: XC2_6 EXAM DATE/TIME: 07/29/2020 4:28 PM COMPARISON: Comparison is made to prior study dated 22 Nov 2017, 11/16/2017 and 27 August 2009 RESULT: Lines, tubes, and devices: None. Lungs and pleura: Chronic interstitial lung changes with bibasilar fibrotic scarring is stable. There is no focal consolidation or acute pleural process/fluid. There is no vascular redistribution to suggest pulmonary edema. Cardiomediastinal silhouette: The cardiac, mediastinal and hilar shadows are unchanged with post median sternotomy changes and valvuloplasty. Other: The bony structures are intact DIVISION OF RADIOLOGY Provider, Ronel Marques [facility] - 07/29/2020 * * *Final Report* * * DATE OF EXAM: Jul 29 2020 4:28PM WOX 5291 - XR CHEST 2V FRONTAL/LAT / PROCEDURE REASON: Chronic cough * * * * Physician Interpretation * * * * EXAMINATION: CHEST RADIOGRAPH (2 VIEW FRONTAL & LATERAL) CLINICAL HISTORY: Chronic cough MQ: XC2_6 EXAM DATE/TIME: 07/29/2020 4:28 PM COMPARISON: Comparison is made to prior study dated 22 Nov 2017, 11/16/2017 and 27 August 2009 RESULT: Lines, tubes, and devices: None. Lungs and pleura: Chronic interstitial lung changes with bibasilar fibrotic scarring is stable. There is no focal consolidation or acute pleural process/fluid. There is no vascular redistribution to suggest pulmonary edema. Cardiomediastinal silhouette: The cardiac, mediastinal and hilar shadows are unchanged with post median sternotomy changes and valvuloplasty. Other: The bony structures are intact IMPRESSION IMPRESSION: Stable chest. No acute cardiopulmonary process. Paper Pattern Inspector: PSCB Transcribe Date/Time: Jul 29 2020 4:37P Dictated by : JOHAN MATHIS MD This examination was interpreted and the report reviewed and electronically signed by: JOHAN MATHIS MD on Jul 29 2020 4:40PM EST [facility] Radiology Study observation (narrative) [facility] XR Chest PA and LateralOrder ed By: [facility] Provider on 07-29-2020 [facility] Clinical Summary: HMSPatient IDon 05-29-2020 [facility] Work Phone: Clinical Lists Update: Prelo ad Extendedon 05-28-2020 Tobacco smoking status NHIS Tobacco smoking status [facility] Work Phone: [phone] Clinical Summary: Outcome Simon mmaryon 05-27-2020 QuickDASH Assessment Final Score 16 [facility] Work Phone: QuickDASH Assessment item 1 3 [facility] Work Phone: [phone] QuickDASH Assessment item 10 1 [facility] Work Phone: [phone] QuickDASH Assessment item 11 1 [facility] Work Phone: [phone] QuickDASH Assessment item 2 2 [facility] Work Phone: [phone] QuickDASH Assessment item 3 1 [facility] Work Phone: [phone] QuickDASH Assessment item 4 1 [facility] Work Phone: [phone] QuickDASH Assessment item 5 1 [facility] Work Phone: [phone] QuickDASH Assessment item 6 2 [facility] Work Phone: [phone] QuickDASH Assessment item 7 2 [facility] Work Phone: [phone] QuickDASH Assessment item 8 1 [facility] Work Phone: [phone] QuickDASH Assessment item 9 3 [facility] Work Phone: [phone] diagnostic criteria for SLE #1 4 [facility] Work Phone: [phone] diagnostic criteria for SLE #10 3 [facility] Work Phone: [phone] diagnostic criteria for SLE #11 13 [facility] Work Phone: [phone] diagnostic criteria for SLE #12 19 [facility] Work Phone: [phone] diagnostic criteria for SLE #13 42.3 [facility] Work Phone: diagnostic criteria for SLE #14 62.5 [facility] Work Phone: diagnostic criteria for SLE #15 [phone] [facility] Work Phone: diagnostic criteria for SLE #2 4 [facility] Work Phone: diagnostic criteria for SLE #3 3 [facility] Work Phone: diagnostic criteria for SLE #4 5 [facility] Work Phone: diagnostic criteria for SLE #5 5 [facility] Work Phone: diagnostic criteria for SLE #6 4 [facility] Work Phone: diagnostic criteria for SLE #7 5 [facility] Work Phone: diagnostic criteria for SLE #8 5 [facility] Work Phone: diagnostic criteria for SLE #9 5 [facility] Work Phone: Clinical Summary: Scanned [place] story Summaryon 05-27-2020 cause of , father Parkinsons Complications [facility] Work Phone: cause of , mother COPD [facility] Work Phone: Cholesterol [Mass/Vol] ArthritisFracturesHeart diseaseHigh blood pressureHigh cholesterolHypertensionNeurop athyObesityObstructive sleep apnea [facility] Work Phone: Data entered by patient exercise frequency 3 days per week [facility] Work Phone: Data entered by patient exercise type aerobics [facility] Work Phone: data entered by patient, alcohol (ethanol or ETOH) use No [facility] Work Phone: Data entered by patient, allergy list I don't have any Drug Allergies [facility] Work Phone: data entered by patient, drug (of abuse) use No [facility] Work Phone: data entered by patient, Employer Name employed [facility] Work Phone: data entered by patient, exercise history Yes [facility] Work Phone: data entered by patient, father's medical history CancerHeart diseaseObesity [facility] Work Phone: Data entered by patient, history of past surgeries Foot surgeryHeart cathHeart valve repairHernia repairTonsillectomy [facility] Work Phone: Data entered by patient, medication list woupqgdqxn-58-2-Once dailymetoprolol ldniczzh-79-4-twice beguritugukmpuzn-26-0-Once jtkhpstvrcli-26-1-Once dailyvitamin [id number]-Once Daily [facility] Work Phone: data entered by patient, mother's medical history AlzheimerArthritisCOPDHigh blood pressureObesity [facility] Work Phone: data entered by patient, social history, current smoker never smoker [facility] Work Phone: data entered by patient, social history, marital status [facility] Work Phone: father of patient is alive or [facility] Work Phone: father's medical history, comments Parkinson's Disease [facility] Work Phone: Housing Type: apartment, house, care home, trailer, none house [facility] Work Phone: housing unit size (asthma environmental history, housing) (from single family to don't know) 2 floors [facility] Work Phone: medical history of patient's brother(s) My brother's health history is unknown [facility] Work Phone: medical history of patient's sister High blood pressureObesity Rad[facility] Work Phone: mother of patient is alive or [facility] Work Phone: Number of dependent children No [facility] Work Phone: Vital Signs Date Time Vital Sign Value Performing Clinician Facility 03-20-2025 15:32-0400 Diastolic blood pressure 70 mm[Hg] Rose Beebe MD Work Phone: [facility] 03-20-2025 15:32-0400 Heart rate 48 /min Rose Beebe MD Work Phone: [facility] 03-20-2025 15:32-0400 Respiratory rate 14 /min Rose Beebe MD Work Phone: [facility] 03-20-2025 15:32-0400 SaO2% (BldA) [Mass fraction] 96 % Rose Beebe MD Work Phone: [facility] 03-20-2025 15:32-0400 Systolic blood pressure 124 mm[Hg] Rose Beebe MD Work Phone: [facility] 03-20-2025 13:45-0400 Body mass index (BMI) [Ratio] 43.68 kg/m2 Rose Beebe MD Work Phone: [facility] 03-20-2025 13:45-0400 Body temperature 97 [degF] Rose Beebe MD Work Phone: [facility] 03-20-2025 13:45-0400 Body weight 146.1 kg Rose Beebe MD Work Phone: [facility] 02-28-2025 15:01-0400 Body mass index (BMI) [Ratio] 43.67 kg/m2 Va Real TENONER OPERATOR.BOARD WRITER Work Phone: [facility] [place] 02-28-2025 15:01-0400 Body weight 146.06 kg Va Sherwin TENONER OPERATOR.BOARD WRITER Work Phone: [facility] [place] 02-28-2025 15:01-0400 Diastolic blood pressure 77 mm[Hg] Va Sherwin TENONER OPERATOR.BOARD WRITER Work Phone: [facility] [place] 02-28-2025 15:01-0400 Heart rate 57 /min Va Sherwin TENONER OPERATOR.BOARD WRITER Work Phone: [facility] [place] 02-28-2025 15:01-0400 Respiratory rate 16 /min Va Sherwin TENONER OPERATOR.BOARD WRITER Work Phone: [facility] [place] 02-28-2025 15:01-0400 SaO2% (BldA) [Mass fraction] 97 % Va Sherwin TENONER OPERATOR.BOARD WRITER Work Phone: [facility] [place] 02-28-2025 15:01-0400 Systolic blood pressure 136 mm[Hg] Va Sherwin TENONER OPERATOR.BOARD WRITER Work Phone: [facility] [place] 02-23-2025 09:57-0400 Body mass index (BMI) [Ratio] 43.24 kg/m2 Ye Zachary TENONER OPERATOR.BOARD WRITER Work Phone: [facility] [place] 02-23-2025 09:57-0400 Body weight 144.61 kg Ye Zachary TENONER OPERATOR.BOARD WRITER Work Phone: [facility] [place] 02-23-2025 09:57-0400 Diastolic blood pressure 72 mm[Hg] Ye Zachary TENONER OPERATOR.BOARD WRITER Work Phone: [facility] [place] 02-23-2025 09:57-0400 Heart rate 64 /min Ye Zachary TENONER OPERATOR.BOARD WRITER Work Phone: [facility] [place] 02-23-2025 09:57-0400 Respiratory rate 20 /min Ye Zachary TENONER OPERATOR.BOARD WRITER Work Phone: [facility] [place] 02-23-2025 09:57-0400 Systolic blood pressure 120 mm[Hg] Ye Sharma TENONER OPERATOR.BOARD WRITER Work Phone: [facility] [place] 01-23-2025 08:32-0400 Body mass index (BMI) [Ratio] 43.62 kg/m2 Ye Sharma TENONER OPERATOR.BOARD WRITER Work Phone: [facility] [place] 01-23-2025 08:32-0400 Body weight 145.88 kg Ye Sharma TENONER OPERATOR.BOARD WRITER Work Phone: [facility] [place] 01-23-2025 08:32-0400 Diastolic blood pressure 66 mm[Hg] Ye Sharma TENONER OPERATOR.BOARD WRITER Work Phone: [facility] [place] 01-23-2025 08:32-0400 Heart rate 60 /min Ye Sharma TENONER OPERATOR.BOARD WRITER Work Phone: [facility] [place] 01-23-2025 08:32-0400 SaO2% (BldA) [Mass fraction] 96 % Ye Sharma TENONER OPERATOR.BOARD WRITER Work Phone: [facility] [place] 01-23-2025 08:32-0400 Systolic blood pressure 124 mm[Hg] Ye Sharma TENONER OPERATOR.BOARD WRITER Work Phone: [facility] [place] 01-08-2025 11:25-0400 Body mass index (BMI) [Ratio] 43.24 kg/m2 Bull Mascorro TENONER OPERATOR.BOARD WRITER Work Phone: [facility] [place] 01-08-2025 11:25-0400 Body temperature 97.81 [degF] Bull Mascorro TENONER OPERATOR.BOARD WRITER Work Phone: [facility] [place] 01-08-2025 11:25-0400 Body weight 144.6 kg Bull Mascorro TENONER OPERATOR.BOARD WRITER Work Phone: [facility] [place] 01-08-2025 11:25-0400 Diastolic blood pressure 68 mm[Hg] Bull Mascorro TENONER OPERATOR.BOARD WRITER Work Phone: [facility] [place] 01-08-2025 11:25-0400 Heart rate 64 /min Bull Mascorro TENONER OPERATOR.BOARD WRITER Work Phone: [facility] [place] 01-08-2025 11:25-0400 Respiratory rate 16 /min Bull Mascorro TENONER OPERATOR.BOARD WRITER Work Phone: [facility] [place] 01-08-2025 11:25-0400 SaO2% (BldA) [Mass fraction] 95 % Bull Mascorro TENONER OPERATOR.BOARD WRITER Work Phone: [facility] [place] 01-08-2025 11:25-0400 Systolic blood pressure 124 mm[Hg] Bull Mascorro TENONER OPERATOR.BOARD WRITER Work Phone: [facility] [place] 12-25-2024 11:37-0400 Body mass index (BMI) [Ratio] 43.59 kg/m2 Ye Sharma TENONER OPERATOR.BOARD WRITER Work Phone: [facility] [place] 12-25-2024 11:37-0400 Body weight 145.79 kg Ye Sharma TENONER OPERATOR.BOARD WRITER Work Phone: [facility] [place] 12-25-2024 11:37-0400 Diastolic blood pressure 94 mm[Hg] Ye Sharma TENONER OPERATOR.BOARD WRITER Work Phone: [facility] [place] 12-25-2024 11:37-0400 Heart rate 60 /min Ye Sharma TENONER OPERATOR.BOARD WRITER Work Phone: [facility] [place] 12-25-2024 11:37-0400 Respiratory rate 20 /min Ye Sharma TENONER OPERATOR.BOARD WRITER Work Phone: [facility] [place] 12-25-2024 11:37-0400 Systolic blood pressure 126 mm[Hg] Ye Sharma TENONER OPERATOR.BOARD WRITER Work Phone: [facility] [place] 09-01-2024 08:07-0500 Body mass index (BMI) [Ratio] 43.41 kg/m2 Deshawn Clutter PA-C Work Phone: [facility] [place] 09-01-2024 08:07-0500 Body temperature 97.59 [degF] Deshawn Clutter PA-C Work Phone: [facility] [place] 09-01-2024 08:07-0500 Body weight 145.2 kg Deshawn Clutter PA-C Work Phone: [facility] [place] 09-01-2024 08:07-0500 Diastolic blood pressure 84 mm[Hg] Deshawn Clutter PA-C Work Phone: [facility] [place] 09-01-2024 08:07-0500 Heart rate 58 /min Deshawn Clutter PA-C Work Phone: [facility] [place] 09-01-2024 08:07-0500 Respiratory rate 20 /min Deshawn Clutter PA-C Work Phone: [facility] [place] 09-01-2024 08:07-0500 SaO2% (BldA) [Mass fraction] 95 % Deshawn Clutter PA-C Work Phone: [facility] [place] 09-01-2024 08:07-0500 Systolic blood pressure 135 mm[Hg] Deshawn Clutter PA-C Work Phone: [facility] [place] 08-21-2024 09:31-0500 Body mass index (BMI) [Ratio] 43 kg/m2 Shayy Zavalahof TENONER OPERATOR.BOARD WRITER Work Phone: [facility] [place] 08-21-2024 09:31-0500 Body weight 143.8 kg Shayy Zavalahof TENONER OPERATOR.BOARD WRITER Work Phone: [facility] [place] 08-21-2024 09:31-0500 Diastolic blood pressure 90 mm[Hg] Shayy Zavalahof TENONER OPERATOR.BOARD WRITER Work Phone: [facility] [place] 08-21-2024 09:31-0500 Heart rate 97 /min Shayy Tannhof TENONER OPERATOR.BOARD WRITER Work Phone: [facility] [place] 08-21-2024 09:31-0500 Respiratory rate 16 /min Shayy Zavalahof TENONER OPERATOR.BOARD WRITER Work Phone: [facility] [place] 08-21-2024 09:31-0500 SaO2% (BldA) [Mass fraction] 97 % Shayy Zavalahof TENONER OPERATOR.BOARD WRITER Work Phone: [facility] [place] 08-21-2024 09:31-0500 Systolic blood pressure 160 mm[Hg] Shayy Singh APRN.BOARD WRITER Work Phone: [facility] [place] 07-20-2024 17:20-0500 Body mass index (BMI) [Ratio] 43.12 kg/m2 Luz Costa APRN.BOARD WRITER Work Phone: [facility] [place] 07-20-2024 17:20-0500 Body temperature 97.3 [degF] Luz Costa APRN.BOARD WRITER Work Phone: [facility] [place] 07-20-2024 17:20-0500 Body weight 144.2 kg Luz Costa APRN.BOARD WRITER Work Phone: [facility] [place] 07-20-2024 17:20-0500 Diastolic blood pressure 89 mm[Hg] Luz Costa APRN.BOARD WRITER Work Phone: [facility] [place] 07-20-2024 17:20-0500 Heart rate 54 /min Luz Costa APRN.BOARD WRITER Work Phone: [facility] [place] 07-20-2024 17:20-0500 Respiratory rate 20 /min Luz Costa APRN.BOARD WRITER Work Phone: [facility] [place] 07-20-2024 17:20-0500 SaO2% (BldA) [Mass fraction] 98 % Luz Costa APRN.BOARD WRITER Work Phone: [facility] [place] 07-20-2024 17:20-0500 Systolic blood pressure 151 mm[Hg] Luz Costa APRN.BOARD WRITER Work Phone: [facility] [place] 05-02-2024 10:16-0400 Body height 182.9 cm Jarvis Lake MD Work Phone: [facility] [place] 05-02-2024 10:16-0400 Body mass index (BMI) [Ratio] 42.86 kg/m2 Jarvis Lake MD Work Phone: [facility] [place] 05-02-2024 10:16-0400 Body weight 143.34 kg Jarvis Lake MD Work Phone: [facility] [place] 05-02-2024 10:16-0400 Diastolic blood pressure 97 mm[Hg] Jarvis Lake MD Work Phone: [facility] [place] 05-02-2024 10:16-0400 Heart rate 57 /min Jarvis Lake MD Work Phone: [facility] [place] 05-02-2024 10:16-0400 Respiratory rate 16 /min Jarvis Lake MD Work Phone: [facility] [place] 05-02-2024 10:16-0400 SaO2% (BldA) [Mass fraction] 98 % Jarvis Lake MD Work Phone: [facility] [place] 05-02-2024 10:16-0400 Systolic blood pressure 169 mm[Hg] Jarvis Lake MD Work Phone: [facility] [place] 04-07-2024 10:48-0400 Diastolic blood pressure 82 mm[Hg] Ye Sharma APRN.BOARD WRITER Work Phone: [facility] [place] 04-07-2024 10:48-0400 Systolic blood pressure 138 mm[Hg] Ye Sharma APRN.BOARD WRITER Work Phone: [facility] [place] 04-07-2024 10:30-0400 Body mass index (BMI) [Ratio] 42.55 kg/m2 Ye Sharma APRN.BOARD WRITER Work Phone: [facility] [place] 04-07-2024 10:30-0400 Body weight 142.3 kg Ye Sharma APRN.BOARD WRITER Work Phone: [facility] [place] 04-07-2024 10:30-0400 Heart rate 57 /min Ye Sharma APRN.BOARD WRITER Work Phone: [facility] [place] 04-07-2024 10:30-0400 Respiratory rate 18 /min Ye Sharma APRN.BOARD WRITER Work Phone: [facility] [place] 04-07-2024 10:30-0400 SaO2% (BldA) [Mass fraction] 98 % Ye Sharma APRN.BOARD WRITER Work Phone: [facility] [place] 03-20-2024 08:45-0400 Body mass index (BMI) [Ratio] 42.91 kg/m2 Myra Indorf TENONER OPERATOR.BOARD WRITER Work Phone: [facility] [place] 03-20-2024 08:45-0400 Body temperature 97.7 [degF] Myra Barnhartorf TENONER OPERATOR.BOARD WRITER Work Phone: [facility] [place] 03-20-2024 08:45-0400 Body weight 143.5 kg Myra Indorf TENONER OPERATOR.BOARD WRITER Work Phone: [facility] [place] 03-20-2024 08:45-0400 Diastolic blood pressure 84 mm[Hg] Myra Indorf TENONER OPERATOR.BOARD WRITER Work Phone: [facility] [place] 03-20-2024 08:45-0400 Heart rate 53 /min Myra Indorf TENONER OPERATOR.BOARD WRITER Work Phone: [facility] [place] 03-20-2024 08:45-0400 Respiratory rate 17 /min Myra Barnhartorf TENONER OPERATOR.BOARD WRITER Work Phone: [facility] [place] 03-20-2024 08:45-0400 SaO2% (BldA) [Mass fraction] 94 % Myra Indorf TENONER OPERATOR.BOARD WRITER Work Phone: [facility] [place] 03-20-2024 08:45-0400 Systolic blood pressure 130 mm[Hg] Myra Indorf TENONER OPERATOR.BOARD WRITER Work Phone: [facility] [place] 02-18-2024 10:51-0400 Diastolic blood pressure 92 mm[Hg] Deshawn Noel MD Work Phone: [facility] [place] 02-18-2024 10:51-0400 Systolic blood pressure 138 mm[Hg] Deshawn Noel MD Work Phone: [facility] [place] 02-18-2024 10:42-0400 Body mass index (BMI) [Ratio] 42.31 kg/m2 Deshawn Noel MD Work Phone: [facility] [place] 02-18-2024 10:42-0400 Body weight 141.5 kg Deshawn Noel MD Work Phone: [facility] [place] 02-18-2024 10:42-0400 Heart rate 52 /min Deshawn Noel MD Work Phone: [facility] [place] 02-18-2024 10:42-0400 Respiratory rate 18 /min Deshawn Noel MD Work Phone: [facility] [place] 12-15-2023 11:04-0400 Body mass index (BMI) [Ratio] 41.92 kg/m2 Aleksander Tomlinson TENONER OPERATOR.BOARD WRITER Work Phone: [facility] [place] 12-15-2023 11:04-0400 Body temperature 97.59 [degF] Aleksander Tomlinson TENONER OPERATOR.BOARD WRITER Work Phone: [facility] [place] 12-15-2023 11:04-0400 Body weight 140.2 kg Aleksander Tomlinson TENONER OPERATOR.BOARD WRITER Work Phone: [facility] [place] 12-15-2023 11:04-0400 Diastolic blood pressure 82 mm[Hg] Aleksander Tomlinson TENONER OPERATOR.BOARD WRITER Work Phone: [facility] [place] 12-15-2023 11:04-0400 Heart rate 62 /min Aleksander Tomlinson TENONER OPERATOR.BOARD WRITER Work Phone: [facility] [place] 12-15-2023 11:04-0400 Respiratory rate 18 /min Aleksander Tomlinson TENONER OPERATOR.BOARD WRITER Work Phone: [facility] [place] 12-15-2023 11:04-0400 SaO2% (BldA) [Mass fraction] 97 % Aleksander Tomlinson TENONER OPERATOR.BOARD WRITER Work Phone: [facility] [place] 12-15-2023 11:04-0400 Systolic blood pressure 122 mm[Hg] Aleksander Tomlinson TENONER OPERATOR.BOARD WRITER Work Phone: [facility] [place] 08-19-2023 09:00-0500 Body temperature 97.7 [degF] Deshawn Noel MD Work Phone: [facility] [place] 08-19-2023 09:00-0500 Body weight 138.8 kg Deshawn Noel MD Work Phone: [facility] [place] 08-19-2023 09:00-0500 Diastolic blood pressure 82 mm[Hg] Deshawn Noel MD Work Phone: [facility] [place] 08-19-2023 09:00-0500 Heart rate 67 /min Deshawn Noel MD Work Phone: [facility] [place] 08-19-2023 09:00-0500 SaO2% (BldA) [Mass fraction] 96 % Deshawn Noel MD Work Phone: [facility] [place] 08-19-2023 09:00-0500 Systolic blood pressure 126 mm[Hg] Deshawn Noel MD Work Phone: [facility] [place] 06-04-2023 11:39-0500 Body temperature 96.21 [degF] Carla Praisler-Wood TENONER OPERATOR.BOARD WRITER Work Phone: [facility] [place] 06-04-2023 11:39-0500 Body weight 136.81 kg Carla Praisler-Wood TENONER OPERATOR.BOARD WRITER Work Phone: [facility] [place] 06-04-2023 11:39-0500 Diastolic blood pressure 82 mm[Hg] Carla Praisler-Wood TENONER OPERATOR.BOARD WRITER Work Phone: [facility] [place] 06-04-2023 11:39-0500 Heart rate 55 /min Carla Praisler-Wood TENONER OPERATOR.BOARD WRITER Work Phone: [facility] [place] 06-04-2023 11:39-0500 Respiratory rate 21 /min Carla Praisler-Wood TENONER OPERATOR.BOARD WRITER Work Phone: [facility] [place] 06-04-2023 11:39-0500 SaO2% (BldA) [Mass fraction] 97 % Carla Praisler-Wood TENONER OPERATOR.BOARD WRITER Work Phone: [facility] [place] 06-04-2023 11:39-0500 Systolic blood pressure 134 mm[Hg] Carla Praisler-Wood TENONER OPERATOR.BOARD WRITER Work Phone: [facility] [place] 04-13-2023 13:23-0400 Body height 182.9 cm Jarvis Lake MD Work Phone: [facility] [place] 04-13-2023 13:23-0400 Body weight 133.36 kg Jarvis Lake MD Work Phone: [facility] [place] 04-13-2023 13:23-0400 Diastolic blood pressure 93 mm[Hg] Jarvis Lake MD Work Phone: [facility] [place] 04-13-2023 13:23-0400 Heart rate 58 /min Jarvis Lake MD Work Phone: [facility] [place] 04-13-2023 13:23-0400 Respiratory rate 16 /min Jarvis Lake MD Work Phone: [facility] [place] 04-13-2023 13:23-0400 SaO2% (BldA) [Mass fraction] 97 % Jarvis Lake MD Work Phone: [facility] [place] 04-13-2023 13:23-0400 Systolic blood pressure 163 mm[Hg] Jarvis Lake MD Work Phone: [facility] [place] 02-16-2023 07:56-0400 Body height 185.4 cm Deshawn Noel MD Work Phone: [facility] [place] 02-16-2023 07:56-0400 Body weight 136.53 kg Deshawn Noel MD Work Phone: [facility] [place] 02-16-2023 07:56-0400 Diastolic blood pressure 80 mm[Hg] Deshawn Noel MD Work Phone: [facility] [place] 02-16-2023 07:56-0400 Heart rate 78 /min Deshawn Noel MD Work Phone: [facility] [place] 02-16-2023 07:56-0400 Respiratory rate 18 /min Deshawn Noel MD Work Phone: [facility] [place] 02-16-2023 07:56-0400 Systolic blood pressure 128 mm[Hg] Deshawn Noel MD Work Phone: [facility] [place] 01-05-2023 15:41-0400 Body weight 133.9 kg Deshawn Noel MD Work Phone: [facility] [place] 01-05-2023 15:41-0400 Diastolic blood pressure 86 mm[Hg] Deshawn Noel MD Work Phone: [facility] [place] 01-05-2023 15:41-0400 Heart rate 82 /min Deshawn Noel MD Work Phone: [facility] [place] 01-05-2023 15:41-0400 Respiratory rate 16 /min Deshawn Noel MD Work Phone: [facility] [place] 01-05-2023 15:41-0400 Systolic blood pressure 134 mm[Hg] Deshawn Noel MD Work Phone: [facility] [place] 12-08-2022 10:56-0400 Body temperature 98.71 [degF] Aleksander Tomlinson TENONER OPERATOR.BOARD WRITER Work Phone: [facility] [place] 12-08-2022 10:56-0400 Body weight 135.44 kg Aleksander Tomlinson TENONER OPERATOR.BOARD WRITER Work Phone: [facility] [place] 12-08-2022 10:56-0400 Diastolic blood pressure 82 mm[Hg] Aleksander Tomlinson TENONER OPERATOR.BOARD WRITER Work Phone: [facility] [place] 12-08-2022 10:56-0400 Heart rate 60 /min Aleksander Tomlinson TENONER OPERATOR.BOARD WRITER Work Phone: [facility] [place] 12-08-2022 10:56-0400 Respiratory rate 16 /min Aleksander Tomlinson TENONER OPERATOR.BOARD WRITER Work Phone: [facility] [place] 12-08-2022 10:56-0400 SaO2% (BldA) [Mass fraction] 96 % Aleksander Tomlinson TENONER OPERATOR.BOARD WRITER Work Phone: [facility] [place] 12-08-2022 10:56-0400 Systolic blood pressure 142 mm[Hg] Aleksander Tomlinson TENONER OPERATOR.BOARD WRITER Work Phone: [facility] [place] 08-29-2022 08:29-0500 Body temperature 97.59 [degF] Kylie Parikh TENONER OPERATOR.BOARD WRITER Work Phone: [facility] [place] 08-29-2022 08:29-0500 Body weight 134.72 kg Kylie Parikh TENONER OPERATOR.BOARD WRITER Work Phone: [facility] [place] 08-29-2022 08:29-0500 Diastolic blood pressure 80 mm[Hg] Kylie Parikh TENONER OPERATOR.BOARD WRITER Work Phone: [facility] [place] 08-29-2022 08:29-0500 Heart rate 53 /min Kylie Carneyk TENONER OPERATOR.BOARD WRITER Work Phone: [facility] [place] 08-29-2022 08:29-0500 Respiratory rate 20 /min Kylie Carneyk TENONER OPERATOR.BOARD WRITER Work Phone: [facility] [place] 08-29-2022 08:29-0500 SaO2% (BldA) [Mass fraction] 98 % Kylie Parikh TENONER OPERATOR.BOARD WRITER Work Phone: [facility] [place] 08-29-2022 08:29-0500 Systolic blood pressure 142 mm[Hg] Kylie Jl TENONER OPERATOR.BOARD WRITER Work Phone: [facility] [place] 07-02-2022 14:10-0500 Body temperature 97.81 [degF] Luz Costa TENONER OPERATOR.BOARD WRITER Work Phone: [facility] [place] 07-02-2022 14:10-0500 Body weight 136.08 kg Luz Costa APRN.BOARD WRITER Work Phone: [facility] [place] 07-02-2022 14:10-0500 Diastolic blood pressure 84 mm[Hg] Luz Costa APRN.BOARD WRITER Work Phone: [facility] [place] 07-02-2022 14:10-0500 Heart rate 71 /min Luz Costa TENONER OPERATOR.BOARD WRITER Work Phone: [facility] [place] 07-02-2022 14:10-0500 Respiratory rate 20 /min Luz Costa TENONER OPERATOR.BOARD WRITER Work Phone: [facility] [place] 07-02-2022 14:10-0500 SaO2% (BldA) [Mass fraction] 98 % Luz Costa TENONER OPERATOR.BOARD WRITER Work Phone: [facility] [place] 07-02-2022 14:10-0500 Systolic blood pressure 122 mm[Hg] Luz Costa APRN.BOARD WRITER Work Phone: [facility] [place] 02-18-2022 12:47-0400 Body weight 133.18 kg Deshawn Noel MD Work Phone: [facility] [place] 02-18-2022 12:47-0400 Diastolic blood pressure 74 mm[Hg] Deshawn Noel MD Work Phone: [facility] [place] 02-18-2022 12:47-0400 Heart rate 64 /min Deshawn Noel MD Work Phone: [facility] [place] 02-18-2022 12:47-0400 Respiratory rate 16 /min Deshawn Noel MD Work Phone: [facility] [place] 02-18-2022 12:47-0400 Systolic blood pressure 120 mm[Hg] Deshawn Noel MD Work Phone: [facility] [place] 10-29-2021 10:35-0400 Body temperature 97.5 [degF] Aleksander Tomlinson TENONER OPERATOR.BOARD WRITER Work Phone: [facility] [place] 10-29-2021 10:35-0400 Body weight 137.89 kg Aleksander Tomlinson TENONER OPERATOR.BOARD WRITER Work Phone: [facility] [facility] [place] 10-29-2021 10:35-0400 Diastolic blood pressure 72 mm[Hg] Aleksander Tomlinson TENONER OPERATOR.BOARD WRITER Work Phone: [facility] [place] 10-29-2021 10:35-0400 Heart rate 68 /min Aleksander Tomlinson TENONER OPERATOR.BOARD WRITER Work Phone: [facility] [place] 10-29-2021 10:35-0400 Respiratory rate 18 /min Aleksander Tomlinson TENONER OPERATOR.BOARD WRITER Work Phone: [facility] [place] 10-29-2021 10:35-0400 SaO2% (BldA) [Mass fraction] 95 % Aleksander Tomlinson TENONER OPERATOR.BOARD WRITER Work Phone: [facility] [place] 10-29-2021 10:35-0400 Systolic blood pressure 104 mm[Hg] Aleksander Tomlinson APRN.BOARD WRITER Work Phone: [facility] [place] NEGATED: Highlighted [id number] 14:03-0500 BMI (Body Mass Index) 41.88 kg/m2 Sheryl Bernardo WICK AND BASE ASSEMBLER [facility] Work Phone: NEGATED: Highlighted [id number] 14:03-0500 Body weight 133.81 kg Sheryl Bernardo [employer] AND B[employer] ASSEMBLER [facility] Work Phone: NEGATED: Highlighted [id number] 14:03-0500 Body weight 134 kg Sheryl Bernardo W[employer] AND BASE ASSEMBLER [facility] Work Phone: NEGATED: Highlighted [id number] 14:03-0500 Height 179.07 cm Sheryl Bernardo WICK AND BASE ASSEMBLER [facility] Work Phone: NEGATED: Highlighted [id number] 14:03-0500 Height 179 cm Sheryl Bernardo [facility] Work Phone: Encounters Encounter Date Encounter Type Care Provider Facility Start: 03-20-2025 ambulatory ROSE Ramseyi ty:[facility] Start: 03-20-2025 End: 03-20-2025 Subsequent hospital visit by physician Rose Beebe MD Work Phone: Ambulatory Surgery Comment on above: Screening for colon cancer [Z12.11] Start: 02-28-2025 End: 02-28-2025 Patient encounter procedure Va Real APRN.BOARD WRITER Work Phone: General Surgery Comment on above: History of colonic p olyps (Primary Dx); Screening for colon cancer Start: 02-28-2025 End: 02-28-2025 ambulatory VA REAL Facility:[facility] Start: 02-23-2025 End: 02-23-2025 Office outpatient visit 25 minutes Ye Sharma APRN.BOARD WRITER Work Phone: [facility] Comment on above: Essential (primary) hypertension (Primary Dx); Bilateral leg edema; Primary osteoarthritis, left hand; Screening for depression; Morbid (severe) obesity due to excess calories (HCC); Encounter for screening examination for other mental health and behavioral disorders; Screening for colon cancer; Impaired fasting glucose; Hyperlipidemia LDL goal <130; Right ear pain Start: 02-23-2025 End: 02-23-2025 ambulatory YE SHARMA Facility:[facility] Start: 02-21-2025 End: 02-21-2025 ambulatory Carla Orourke MA [facility] Start: 02-21-2025 End: 02-21-2025 Patient encounter procedure Carla Orourke MA [facility] Comment on above: Population Health Na vigation Outreach (WALLY VENEGAS PCSTiti ) Start: 02-19-2025 End: 02-19-2025 ambulatory SHAYY SINGH Facility:[facility] Start: 02-06-2025 End: 02-06-2025 Patient encounter procedure Nestor Lino DO Work Phone: [facility] Comment on above: Mallet finger of lef t finger(s) (Primary Dx); Primary osteoarthritis, left hand Start: 02-06-2025 End: 02-06-2025 [facility] NESTOR LINO Facility:[facility] Start: 01-23-2025 End: 01-23-2025 Office outpatient visit 15 minutes Ye Sharma APRN.CNP Work Phone: [facility] Comment on above: Bilateral leg edema (Primary Dx); Essential (primary) hypertension Start: 01-23-2025 End: 01-23-2025 ambulatory YE SHARMA Facility:[facility] Start: 01-18-2025 End: 01-19-2025 Refill Jarvis Lake MD Work Phone: Cardiology Comment on above: Refill Request Start: 01-09-2025 End: 01-09-2025 Patient encounter procedure Nestor Lino DO Work Phone: [facility] Comment on above: Injury of finger of left hand, initial encounter; Mallet finger of left finger(s) Start: 01-09-2025 End: 01-09-2025 [facility] NESTOR LINO Facility:[facility] Start: 01-08-2025 End: 01-08-2025 Follow-up encounter Bull Mascorro TENONER OPERATOR.BOARD WRITER Work Phone: [facility] Comment on above: Results Start: 01-08-2025 End: 01-08-2025 Office outpatient visit 15 minutes Bull Mascorro TENONER OPERATOR.BOARD WRITER Work Phone: [facility] Comment on above: Injury of finger of left hand, initial encounter (Primary Dx) Start: 01-08-2025 End: 01-08-2025 Subsequent hospital visit by physician Xr [facility] [place] Work Phone: Radiology Comment on above: Injury of finger of left hand, initial encounter [S69.92XA] Start: 01-08-2025 End: 01-08-2025 ambulatory [facility] Facility:[facility] Start: 12-25-2024 End: 12-25-2024 Office outpatient visit 25 minutes Ye Sharma TENONER OPERATOR.BOARD WRITER Work Phone: [facility] [place] Comment on above: Essential hypertensi on, benign (Primary Dx); Bilateral leg edema; Presence of prosthetic heart valve Start: 12-25-2024 End: 12-25-2024 ambulatory YE SHARMA Facility:[facility] Start: 12-01-2024 End: 12-01-2024 ambulatory [facility] Facility:[facility] Start: 10-25-2024 End: 10-26-2024 Refill Jarvispantera Lake MD Work Phone: Cardiology Comment on above: Refill Request Start: 09-01-2024 End: 09-01-2024 ambulatory [facility] Facility:[facility] Start: 09-01-2024 End: 09-01-2024 Office outpatient visit 25 minutes Deshawn Griggs PA-C Work Phone: [facility] Comment on above: Sore throat (Primary Dx); Acute pharyngitis, unspecified etiology Start: 08-21-2024 End: 08-21-2024 Office outpatient visit 25 minutes Shayy Singh APRN.BOARD WRITER Work Phone: [facility] [place] Comment on above: Essential hypertensi on, benign (Primary Dx); Hyperlipidemia LDL goal <130; 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; History of aortic valve replacement with bioprosthetic valve; Obstructive sleep apnea syndrome; ED (erectile dysfunction) of organic origin; Elevated glucose; Screening for colon cancer; Screening for prostate cancer Start: 08-21-2024 End: 08-21-2024 ambulatory SHAYY SINGH Facility:[facility] Start: 08-16-2024 End: 08-16-2024 ambulatory [facility] Facility:[facility] Start: 07-20-2024 End: 07-20-2024 ambulatory [facility] Facility:[facility] Start: 07-20-2024 End: 07-20-2024 Patient encounter procedure Luz Costa APRN.BOARD WRITER Work Phone: [facility] Comment on above: Bilateral impacted c erumen (Primary Dx); Olecranon bursitis of right elbow Start: 05-25-2024 End: 05-25-2024 ambulatory Artemio Grove Facility:[facility] Start: 05-02-2024 End: 05-02-2024 Patient encounter procedure Jarvis Lake MD Work Phone: Cardiology Comment on above: S/P AVR (Primary Dx) Start: 05-02-2024 End: 05-02-2024 ambulatory JARVIS LAKE M.D. 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; Essential hypertension, benign; Acute otitis externa of right ear, unspecified type Start: 04-07-2024 End: 04-07-2024 Preprocedural examination done Ye Sharma APRN.BOARD WRITER Work Phone: [facility] [place] Start: 03-30-2024 End: 04-07-2024 Telephone encounter Deshawn Noel MD Work Phone: [facility] Comment on above: Forms (Surgical Breana jason-[facility]) Start: 03-29-2024 End: 04-12-2024 Telephone encounter Jarvis Lake MD Work Phone: Cardiology Comment on above: Cardiac Clearance Start: 03-27-2024 End: 03-27-2024 ambulatory Deshawn Noel Facility:[facility] Start: 03-20-2024 End: 03-20-2024 Telephone encounter Myra Miramontes APRN.BOARD WRITER Work Phone: [facility] Comment on above: Medication Problem Start: 03-20-2024 End: 03-20-2024 Office outpatient visit 15 minutes Myra Miramontes APRN.BOARD WRITER Work Phone: [facility] Comment on above: Bilateral impacted c erumen (Primary Dx); Acute infective otitis externa, bilateral Start: 03-17-2024 End: 03-17-2024 Telephone encounter Deshawn Noel MD Work Phone: [facility] Comment on above: Forms (Surgical breana jason) Start: 02-18-2024 End: 02-18-2024 Patient encounter procedure Deshawn Noel MD Work Phone: [facility] Comment on above: Essential hypertensi on, benign (Primary Dx); Hyperlipidemia LDL goal <130; Impaired fasting glucose; Obstructive sleep apnea syndrome; History of aortic valve replacement with bioprosthetic valve; ED (erectile dysfunction) of organic origin; Screening for depression; Encounter for screening examination for other mental health and behavioral disorders; Pre-op exam Start: 02-18-2024 End: 02-18-2024 Preprocedural examination done Deshawn Noel MD Work Phone: [facility] [place] Work Phone: Start: 02-17-2024 Telephone encounter Deshawn almaguer MD Work Phone: [facility] [place] Comment on above: Forms Start: 12-15-2023 End: 12-15-2023 Patient encounter procedure Aleksander Tomlinson APRN.BOARD WRITER Work Phone: [facility] Comment on above: Bilateral impacted c erumen (Primary Dx) Start: 12-14-2023 Telephone encounter Deshawn almaguer MD Work Phone: [facility] Comment on above: Forms ([employer] re: P[employer] supplies) Start: 12-09-2023 Orders Only Jarvis brito MD Work Phone: Cardiology Comment on above: Nonrheumatic aortic valve stenosis (Primary Dx); Encounter for follow-up for aortic valve replacement Start: 12-04-2023 End: 12-04-2023 Emergency department patient visit Mal[facility] Facility:[facility] Start: 12-02-2023 End: 12-02-2023 Emergency department patient visit None Provider Facility:[facility] Start: 11-08-2023 Refill Jarvis brito MD Work Phone: Cardiology Comment on above: Refill Request Start: 08-19-2023 End: 08-19-2023 Patient encounter procedure Deshawn Noel MD Work Phone: [facility] Comment on above: Essential hypertensi on, benign (Primary Dx); History of aortic valve replacement with bioprosthetic valve; Hyperlipidemia LDL goal <130; Impaired fasting glucose; Sleep disorder; ED (erectile dysfunction) of organic origin; Benign prostatic hyperplasia, unspecified whether lower urinary tract symptoms present; S/P TKR (total knee replacement), bilateral; Bilateral groin pain; Cough, unspecified type; Obesity, Class III, BMI 40-49.9 (morbid obesity) ([facility]) Start: 08-16-2023 ambulatory Deshawn swanson MD Work Phone: [facility] [place] Comment on above: Do I need blood work Start: 06-04-2023 End: 06-04-2023 Patient encounter procedure Carla Bridges APRN.BOARD WRITER Work Phone: [facility] Comment on above: Bilateral impacted c erumen (Primary Dx) Start: 04-13-2023 End: 04-13-2023 Patient encounter procedure Jarvis Lake MD Work Phone: Cardiology Comment on above: Obesity, Class II, B OK 35-39.9 (Primary Dx); S/P AVR Start: 03-11-2023 End: 03-11-2023 ambulatory [facility] Work Phone: Start: 03-11-2023 End: 03-11-2023 Patient encounter procedure [facility]Sleep Lab Work Phone: Start: 03-01-2023 Telephone encounter Deshawn almaguer MD Work Phone: [facility] Comment on above: Forms Start: 02-19-2023 End: 02-19-2023 ambulatory [facility] Work Phone: Start: 02-19-2023 End: 02-19-2023 Patient encounter procedure [facility]-Laboratory, Specimen Work Phone: Start: 02-16-2023 End: 02-16-2023 Patient encounter procedure Deshawn Noel MD Work Phone: [facility] Comment on above: Encounter for Medica re annual wellness exam (Primary Dx); Left groin pain; Essential hypertension, benign; Hyperlipidemia LDL goal <130; Obesity, Class III, BMI 40-49.9 (morbid obesity) ([facility]); Presence of prosthetic heart valve; Arthritis of knee Start: 02-11-2023 End: 02-11-2023 Patient encounter procedure [facility] Work Phone: Start: 01-25-2023 Refill Deshawn swanson MD Work Phone: [facility] Comment on above: Refill Request Start: 01-05-2023 End: 01-05-2023 Patient encounter procedure Deshawn Noel MD Work Phone: [facility] Comment on above: Insomnia, unspecifie d type (Primary Dx); Sleep disorder; Obesity, Class III, BMI 40-49.9 (morbid obesity) (HCC); Essential hypertension, benign; 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 Deshawn Noel Work Phone: [facility] Work Phone: Start: 11-13-2022 End: 11-13-[address] Deshawn Noel Work Phone: [facility]-Laboratory, Specimen Start: 10-27-2022 End: 10-27-[address] Deshawn Noel Work Phone: [facility] Work Phone: Start: 10-27-2022 End: 10-27-[address] Deshawn Noel Work Phone: [facility]-Laboratory Start: 09-29-2022 End: 09-29-2022 ambulatory DESHAWN NOEL [facility] Start: 09-22-2022 End: 09-22-2022 Non-patient / Non-visit Dr. Deshawn Noel Work Phone: [facility] Start: 09-22-2022 End: 09-22-[address] Deshawn Noel Work Phone: [facility] Work Phone: Start: 09-22-2022 End: 09-22-[address] Deshawn Noel Work Phone: [facility]-Pulmonary Services/Neurology Start: 09-17-2022 Telephone encounter Deshawn almaguer MD Work Phone: [facility] Comment on above: pre op form ([facility]) Start: 08-29-2022 End: 08-29-2022 Patient encounter procedure Kylie Parikh APRN.BOARD WRITER Work Phone: [facility] Comment on above: Sore throat (Primary Dx); URI, acute; Exposure to strep throat Start: 07-02-2022 End: 07-02-2022 Patient encounter procedure Luz Costa APRN.BOARD WRITER Work Phone: [facility] Comment on above: Bilateral impacted c erumen (Primary Dx) Start: 06-16-2022 Telephone encounter Deshawn almaguer MD Work Phone: [facility] Comment on above: Forms Start: 02-18-2022 End: 02-18-2022 Patient encounter procedure Deshawn Noel MD Work Phone: [facility] Comment on above: Essential hypertensi on, benign (Primary Dx); ED (erectile dysfunction) of organic origin; Obesity, Class III, BMI 40-49.9 (morbid obesity) (HCC); Arthritis of knee; Impaired fasting glucose; Hyperlipidemia LDL goal <130; Family history of prostate cancer in father; Need for pneumococcal vaccine; Benign prostatic hyperplasia, unspecified whether lower urinary tract symptoms present; History of aortic valve replacement with bioprosthetic valve Start: 12-23-2021 Telephone encounter Deshawn almaguer MD Work Phone: [facility] Comment on above: Forms ([employer] RE: [employer] supplies) Start: 11-11-2021 Orders Only Jarvispantera brito MD Work Phone: Cardiology Comment on above: Essential hypertensi on (Primary Dx); S/P AVR (aortic valve replacement) Start: 10-29-2021 End: 10-29-2021 Patient encounter procedure Aleksander Tomlinson APRN.BOARD WRITER Work Phone: [facility] Comment on above: Paronychia of finger of left hand (Primary Dx); Bilateral impacted cerumen Start: 10-09-2021 Refill [facility] Provider Family Shaka Venegas Comment on above: Refill Request Start: 07-08-2021 End: 07-08-2021 Subsequent hospital visit by physician Xr [facility] Work Phone: Radiology Comment on above: Bronchitis [J40] Start: 06-07-2021 End: 06-07-2021 Subsequent hospital visit by physician Xr [facility] Work Phone: Radiology Comment on above: Cough [R05.9] Start: 07-29-2020 End: 07-29-2020 Subsequent hospital visit by physician Xr [facility] Work Phone: Radiology Comment on above: Chronic cough [R05] Start: 05-29-2020 End: 05-29-2020 Patient encounter procedure Ritesh Hua MD Work Phone: [facility] Work Phone: Start: 11-10-2017 End: 11-16-2017 Patient encounter status Jarvis Jairo BECERRA Work Phone: [facility] [place] Procedures Date Procedure Procedure Detail Performing Clinician Start: 03-20-2025 Colonoscopy flx dx w/collj spec when pfrmd Va Real TENONER OPERATOR.BOARD WRITER Work Phone: Start: 03-20-2025 Colonoscopy Rose Beebe MD Work Phone: Start: 02-23-2025 Adult depression screening assessment Ye Sharma TENONER OPERATOR.BOARD WRITER Work Phone: Start: 02-19-2025 Lipid 1996 panel - S amado or Plasma Carla Orourke MA Start: 01-08-2025 Radex fingr minimum 2 views Bull Mascorro TENONER OPERATOR.BOARD WRITER Work Phone: Start: 09-01-2024 STREP A MOLECULAR (POC) Deshawn Griggs PA-C Work Phone: Start: 08-16-2024 Lipid 1996 panel - S amado or Plasma Shayy Singh APRN.BOARD WRITER Work Phone: Start: 02-18-2024 Adult depression screening assessment Deshawn Noel MD Work Phone: Start: 02-14-2024 Lipid 1996 panel - S amado or Plasma Deshawn Noel MD Work Phone: Start: 08-17-2023 Lipid 1995 panel - S amado or Plasma Deshawn Noel MD Work Phone: Start: 02-02-2023 Lipid 1996 panel - S amado or Plasma Jarvis Lake MD Work Phone: Start: 09-22-2022 Plain chest X-ray Dr. Tai Noel Work Phone: Start: 08-29-2022 STREP A MOLECULAR (POC) Kylie Parikh APRN.BOARD WRITER Work Phone: Start: 07-08-2021 Radiologic exam ches t 2 views Bull Pablo MD Work Phone: Start: 06-07-2021 Radiologic exam ches t 2 views Kylie Parikh APRN.BOARD WRITER Work Phone: Start: 07-29-2020 Radiologic exam ches t 2 views Luis Enrique Ambrose MD Start: 05-29-2020 End: 05-29-2020 Arthrocentesis aspir&/inj small jt/bursa w/o us Ritesh Hua MD Work Phone: Start: 05-29-2020 End: 05-29-2020 Blood pressure screening not performed - reason not given Ritesh Hua MD Work Phone: Start: 05-29-2020 End: 05-29-2020 BMI documented as above normal parameters - follow-up documented Ritesh Hua MD Work Phone: Start: 05-29-2020 End: 05-29-2020 Documentation of current medications Ritesh Hua MD Work Phone: Start: 05-29-2020 End: 05-29-2020 Injection - betamethasone acetate 3 mg and betamethasone sodium phosphate 3 mg Ritesh Hua MD Work Phone: Start: 05-29-2020 End: 05-29-2020 Osteoarthritis assess Ritesh Hua MD Work Phone: Start: 05-29-2020 End: 05-29-2020 Pain assessment documented as positive - follow-up documented Ritesh Hua MD Work Phone: Start: 05-29-2020 End: 05-29-2020 Radex fingr minimum 2 views Ritesh Hua MD Work Phone: Start: 05-29-2020 End: 05-29-2020 Tobacco non-user Ritesh Hua MD Work Phone: Start: 05-09-2020 Adult depression screening assessment [facility] Provider Start: 02-05-2020 Colonoscopy [facility] Provid er H/O: artificial hear t valve Encounter for follow-up for aortic valve replacement Jarvis Lake MD Work Phone: NEGATED: Highlighted rowStart: 05-29-2020 End: 05-29-2020 Documentation of current medications Sheryl Bernardo LPN Plan of Treatment Date Care Activity Detail Author Start: 02-19-2030 Lipid panel Lipid Screening [facility] [place] Start: 02-19-2030 Prostate specific antigen measurement Prostate Cancer Screening Discussion [facility] [place] Start: 08-16-2029 Lipid panel Lipid Screening [facility] [place] Start: 02-13-2029 Lipid panel Lipid Screening [facility] [place] Start: 08-17-2028 Lipid panel Lipid Screening [facility] [place] Start: 03-20-2028 Screening for malignant neoplasm of colon [facility] [place] Start: 02-20-2028 Diabetes Screening Diabetes Screening [facility] [place] Start: 02-03-2028 Lipid 1996 panel - Serum or Plasma Lipid Screening [facility] [place] Start: 02-03-2028 Lipid panel Lipid Screening [facility] [place] Start: 02-03-2028 LIPID SCREEN LIPID SCREEN [facility] [place] Start: 02-03-2028 PROSTATE CANCER SCREENING DISCUSSION PROSTATE CANCER SCREENING DISCUSSION [facility] [place] Start: 02-03-2028 Prostate specific antigen measurement Prostate Cancer Screening Discussion [facility] [place] Start: 08-16-2027 Diabetes Screening Diabetes Screening [facility] [place] Start: 02-13-2027 Diabetes Screening Diabetes Screening [facility] [place] Start: 02-04-2027 LIPID SCREEN LIPID SCREEN [facility] [place] Start: 08-17-2026 Diabetes Screening Diabetes Screening [facility] [place] Start: 08-07-2026 LIPID SCREEN LIPID SCREEN [facility] [place] Start: 02-23-2026 Annual PCP Team Chronic Disease Visit Annual PCP Team Chronic Disease Visit [facility] [place] Start: 02-23-2026 Anxiety Screening Anxiety Screening [facility] Start: 02-23-2026 Depression Screening Depression Screening [facility] [place] Start: 02-19-2026 Hepatitis B surface antibody level LDL Cholesterol [facility] [place] Start: 02-02-2026 DIABETES SCREEN DIABETES SCREEN [facility] [place] Start: 02-02-2026 Diabetes Screening Diabetes Screening [facility] [place] Start: 01-23-2026 Annual PCP Team Chronic Disease Visit Annual PCP Team Chronic Disease Visit [facility] [place] Start: 12-25-2025 Annual PCP Team Chronic Disease Visit Annual PCP Team Chronic Disease Visit [facility] [place] Start: 09-05-2025 PROSTATE CANCER SCREENING DISCUSSION PROSTATE CANCER SCREENING DISCUSSION [facility] Start: 08-27-2025 End: 08-27-2025 Patient encounter procedure 08/27/2025 10:00 AM EST Office Visit [facility] [address] [place], [place] [id number] Ye Sharma APRN.BOARD WRITER [address] [place], [place] [address] 6 month follow up [facility] Comment on above: 6 month follow up Start: 08-26-2025 End: 11-25-2025 Comprehensive metabolic 2000 panel - Serum or Plasma COMPREHENSIVE METABOLIC PANEL Lab Routine Essential (primary) hypertension Expected: 08/26/2025, Expires: 11/25/2025 [facility] Comment on above: Expected: 08/26/2025, Expires: Start: 08-26-2025 End: 11-25-2025 Hemoglobin A1c in Blood HEMOGLOBIN A1C Lab Routine Impaired fasting glucose Expected: 08/26/2025, Expires: 11/25/2025 [facility] Work Phone: Comment on above: Expected: 08/26/2025, Expires: Start: 08-26-2025 End: 11-25-2025 Lipid 1996 panel - Serum or Plasma LIPID PANEL, FASTING Lab Routine Hyperlipidemia LDL goal <130 Expected: 08/26/2025, Expires: 11/25/2025 [facility] Comment on above: Expected: 08/26/2025, Expires: Start: 08-21-2025 Annual PCP Team Chronic Disease Visit Annual PCP Team Chronic Disease Visit [facility] Start: 08-21-2025 RSV Vaccine (1 - Risk 60-74 years 1-dose series) RSV Vaccine (1 - Risk 60-74 years 1-dose series) [facility] Comment on above: Postponed from 2016 (Declined at t his time) Start: 08-21-2025 Shingrix Vaccine (1 of 2) Shingrix Vaccine (1 of 2) [facility] Comment on above: Postponed from 2006 (Declined at t his time) Start: 08-21-2025 Urine microalbumin profile DTaP,Tdap,Td Vaccine (3 - Td or Tdap) [facility] Comment on above: Postponed from 03/09/2022 (Declined at t his time) Start: 08-16-2025 Hepatitis B surface antibody level LDL Cholesterol [facility] Start: 05-24-2025 End: 05-24-2025 ambulatory 05/24/2025 9:00 AM EST Procedure Cardiology [address] [place] [address] DX: S/P AVR Cardiology Comment on above: DX: S/P AVR Start: 05-24-2025 End: 05-24-2025 Patient encounter procedure Cardiology Comment on above: DX: S/P AVR Start: 04-07-2025 Annual PCP Team Chronic Disease Visit Annual PCP Team Chronic Disease Visit [facility] Start: 03-20-2025 End: 03-20-2025 Patient encounter procedure 03/20/2025 2:15 PM EDT Appointment Ambulatory Surgery [address] [place] [id number] Rose Beebe MD [address] [place] [id number] Screening for colon cancer [Z12.11]; History of colonic polyps [Z86.0100] Ambulatory Surgery Comment on above: Screening for colon cancer [Z12.11]; His tory of colonic polyps [Z86.0100] Start: 02-28-2025 End: 02-28-2025 Patient encounter procedure 02/28/2025 3:00 PM EDT Office Visit General [facility] [address] [facility] [place] [address] Va Real APRN.BOARD WRITER [address] [facility] [place] [address] Screening for colon cancer [Z12.11] General Surgery Comment on above: Screening for colon cancer [Z12.11] Start: 02-23-2025 End: 02-23-2025 Patient encounter procedure 02/23/2025 10:00 AM EDT Office Visit [facility] [address] [place] [address] Ye Sharma APRN.BOARD WRITER [address] [facility] [address] 6 month follow up with labs [facility] [place] Comment on above: 6 month follow up with labs Start: 02-21-2025 End: 02-21-2025 Patient encounter procedure [facility] [place] Comment on above: 6 month follow up with labs Start: 02-18-2025 End: 05-20-2025 Comprehensive metabolic 2000 panel - Serum or Plasma COMPREHENSIVE METABOLIC PANEL Lab Routine 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 Expected: 02/18/2025, Expires: 05/20/2025 [facility] Comment on above: Expected: 02/18/2025, Expires: Start: 02-18-2025 End: 05-20-2025 Hemoglobin A1c in Blood HEMOGLOBIN A1C Lab Routine Elevated glucose Expected: 02/18/2025, Expires: 05/20/2025 [facility] Comment on above: Expected: 02/18/2025, Expires: Start: 02-18-2025 End: 05-20-2025 Lipid 1996 panel - Serum or Plasma LIPID PANEL BASIC Lab Routine Hyperlipidemia LDL goal <130 Expected: 02/18/2025, Expires: 05/20/2025 [facility] Comment on above: Expected: 02/18/2025, Expires: Start: 02-18-2025 End: 05-20-2025 PSA/PROSTATE SPECIFIC ANTIGEN SCREENING PSA/PROSTATE SPECIFIC ANTIGEN SCREENING Lab Routine Screening for prostate cancer Expected: 02/18/2025, Expires: 05/20/2025 [facility] Work Phone: Comment on above: Expected: 02/18/2025, Expires: Start: 02-17-2025 Annual PCP Team Chronic Disease Visit Annual PCP Team Chronic Disease Visit [facility] Start: 02-17-2025 Anxiety Screening Anxiety Screening [facility] Start: 02-17-2025 Depression Screening Depression Screening [facility] Start: 02-13-2025 Hepatitis B surface antibody level LDL Cholesterol [facility] Start: 02-06-2025 End: 02-06-2025 Patient encounter procedure 02/06/2025 10:00 AM EDT Office Visit [facility] [address] [place] [address] Nestor Lino, Hel[place], DO [address] [place] [address] Injury of finger of left hand, initial [facility] Comment on above: Injury of finger of left hand, initial Start: 02-04-2025 DIABETES SCREEN DIABETES SCREEN [facility] Start: 01-23-2025 End: 01-23-2025 Patient encounter procedure 01/23/2025 8:40 AM EDT Office Visit [facility] [address] [place] [address] Ye Sharma, TENONER OPERATOR.BOARD WRITER [address] [place] [address] 4 wk f/u BP/Edema [facility] Comment on above: 4 wk f/u BP/Edema Start: 01-09-2025 End: 01-09-2025 Patient encounter procedure 01/09/2025 11:30 AM EDT Office Visit [facility] [place] [address] [place] [address] Nestor Lino, Helena, DO [address] [place] [address] Injury of finger of left hand, initial encounter [S69.92XA] [facility] Comment on above: Injury of finger of left hand, initial e ncounter [S69.92XA] Start: 08-21-2024 End: 08-21-2024 Patient encounter procedure 08/21/2024 10:00 AM EST Office Visit [facility] [place] [address] [place] [address] Shayy Singh APRN.BOARD WRITER [address] [place] [address] [facility]/u Start: 08-20-2024 End: 11-19-2024 Comprehensive metabolic 2000 panel - Serum or Plasma COMPREHENSIVE METABOLIC PANEL Lab Routine Essential hypertension, benign Hyperlipidemia LDL goal <130 Impaired fasting glucose Expected: 08/20/2024 (Approximate), Expires: 11/19/2024 [facility] Work Phone: Comment on above: Expected: 08/20/2024 (Approximate), Expi res: 11/19/2024 Start: 08-20-2024 End: 11-19-2024 Hemoglobin A1c in Blood HEMOGLOBIN A1C Lab Routine Impaired fasting glucose Expected: 08/20/2024 (Approximate), Expires: 11/19/2024 [facility] Comment on above: Expected: 08/20/2024 (Approximate), Expi res: 11/19/2024 Start: 08-20-2024 End: 11-19-2024 Lipid 1996 panel - Serum or Plasma LIPID PANEL BASIC Lab Routine Essential hypertension, benign Hyperlipidemia LDL goal <130 Impaired fasting glucose Expected: 08/20/2024 (Approximate), Expires: 11/19/2024 [facility] Comment on above: Expected: 08/20/2024 (Approximate), Expi res: 11/19/2024 Start: 08-19-2024 Annual PCP Team Chronic Disease Visit Annual PCP Team Chronic Disease Visit [facility] Start: 08-19-2024 Covid-19 Vaccine (#1) Covid-19 Vaccine (#1) [facility] Comment on above: Postponed from 06/05/1956 (Declined at t his time) Start: 08-19-2024 Covid-19 Vaccine () Covid-19 Vaccine () [facility] Comment on above: Postponed from 03/12/2023 (Declined at t his time) Start: 08-17-2024 Hepatitis B surface antibody level LDL Cholesterol [facility] Start: 08-07-2024 DIABETES SCREEN DIABETES SCREEN [facility] Start: 07-12-2024 Advance Directive Discussion Advance Directive Discussion [facility] Start: 05-02-2024 End: 05-02-2024 Patient encounter procedure Cardiology Comment on above: Nonrheumatic aortic valve stenosis [I35. 0] DX:Nonrheumatic aort ic valve stenosis [I35.0] Start: 05-02-2024 End: 05-02-2024 ambulatory 05/02/2024 9:30 AM EDT Results Only Cardiology [address] [place] [address] EKG Cardiology Comment on above: EKG Start: 03-12-2024 Covid-19 Vaccine ( season) Covid-19 Vaccine () [facility] Start: 03-12-2024 Covid-19 Vaccine ( season) Covid-19 Vaccine () [facility] Start: 03-12-2024 Influenza vaccination [facility] Start: 02-18-2024 End: 02-18-2024 Patient encounter procedure 02/18/2024 10:40 AM EDT Office Visit [facility] [address] [place] [id number] Deshawn Noel MD [address] [place], [place] [id number] 6 mo f/u [facility] Comment on above: 6 mo f/u Start: 02-17-2024 ANNUAL PCP TEAM CHRONIC DISEASE VISIT ANNUAL PCP TEAM CHRONIC DISEASE VISIT [facility] Start: 02-17-2024 End: 05-18-2024 Comprehensive metabolic 2000 panel - Serum or Plasma COMP METABOLIC PANEL Lab Routine Essential hypertension, benign Hyperlipidemia LDL goal <130 Impaired fasting glucose Expected: 02/17/2024 (Approximate), Expires: 05/18/2024 [facility] Work Phone: Comment on above: Expected: 02/17/2024 (Approximate), Expi res: 05/18/2024 Start: 02-17-2024 End: 05-18-2024 Hemoglobin A1c in Blood HGB A1C Lab Routine Impaired fasting glucose Expected: 02/17/2024 (Approximate), Expires: 05/18/2024 [facility] Work Phone: Comment on above: Expected: 02/17/2024 (Approximate), Expi res: 05/18/2024 Start: 02-17-2024 End: 05-18-2024 Lipid 1996 panel - Serum or Plasma LIPID PANEL BASIC Lab Routine Essential hypertension, benign History of aortic valve replacement with bioprosthetic valve Hyperlipidemia LDL goal <130 Impaired fasting glucose Expected: 02/17/2024 (Approximate), Expires: 05/18/2024 [facility] Work Phone: Comment on above: Expected: 02/17/2024 (Approximate), Expi res: 05/18/2024 Start: 02-17-2024 Medicare Annual Wellness Visit Medicare Annual Wellness Visit [facility] Start: 02-03-2024 Hepatitis B surface antibody level LDL CHOLESTEROL [facility] Start: 01-09-2024 Influenza vaccination [facility] (#[facility] Comment on above: Postponed from 03/12/2023 (Declined at t his time) Start: 01-06-2024 ANNUAL PCP TEAM CHRONIC DISEASE VISIT ANNUAL PCP TEAM CHRONIC DISEASE VISIT [facility] Start: 08-16-2023 End: 11-15-2023 CBC panel - Blood by Automated count CBC Lab Routine Essential hypertension, benign Expected: 08/16/2023 (Approximate), Expires: 11/15/2023 [facility] Work Phone: Comment on above: Expected: 08/16/2023 (Approximate), Expi res: 11/15/2023 Start: 08-16-2023 End: 11-15-2023 Comprehensive metabolic 2000 panel - Serum or Plasma COMP METABOLIC PANEL Lab Routine Essential hypertension, benign Hyperlipidemia LDL goal <130 Impaired fasting glucose Expected: 08/16/2023 (Approximate), Expires: 11/15/2023 [facility] Work Phone: Comment on above: Expected: 08/16/2023 (Approximate), Expi res: 11/15/2023 Start: 08-16-2023 End: 11-15-2023 Hemoglobin A1c in Blood HGB A1C Lab Routine Impaired fasting glucose Expected: 08/16/2023 (Approximate), Expires: 11/15/2023 [facility] Work Phone: Comment on above: Expected: 08/16/2023 (Approximate), Expi res: 11/15/2023 Start: 08-16-2023 End: 11-15-2023 Lipid 1996 panel - Serum or Plasma LIPID PANEL BASIC Lab Routine Hyperlipidemia LDL goal <130 Expected: 08/16/2023 (Approximate), Expires: 11/15/2023 [facility] Work Phone: Comment on above: Expected: 08/16/2023 (Approximate), Expi res: 11/15/2023 Start: 07-12-2023 Advance Directive Discussion Advance Directive Discussion [facility] Start: 07-12-2023 Behavioral Health Screening Behavioral Health Screening [facility] Start: 07-12-2023 Depression Assessment Depression Assessment [facility] Start: 03-12-2023 Influenza vaccination [facility] Start: 02-18-2023 ANNUAL PCP TEAM CHRONIC DISEASE VISIT ANNUAL PCP TEAM CHRONIC DISEASE VISIT [facility] Start: 02-18-2023 BP CONTROLLED (<130/80) BP CONTROLLED (<130/80) [facility] Start: 02-18-2023 End: 04-20-2023 Comprehensive metabolic 2000 panel - Serum or Plasma COMP METABOLIC PANEL Lab Routine Impaired fasting glucose Hyperlipidemia LDL goal <130 Expected: 02/18/2023 (Approximate), Expires: 04/20/2023 [facility] Work Phone: Comment on above: Expected: 02/18/2023 (Approximate), Expi res: 04/20/2023 Start: 02-18-2023 End: 04-20-2023 Hemoglobin A1c in Blood HGB A1C Lab Routine Impaired fasting glucose Expected: 02/18/2023 (Approximate), Expires: 04/20/2023 [facility] Work Phone: Comment on above: Expected: 02/18/2023 (Approximate), Expi res: 04/20/2023 Start: 02-18-2023 End: 04-20-2023 Lipid 1996 panel - Serum or Plasma LIPID PANEL BASIC Lab Routine Hyperlipidemia LDL goal <130 Expected: 02/18/2023 (Approximate), Expires: 04/20/2023 [facility] Work Phone: Comment on above: Expected: 02/18/2023 (Approximate), Expi res: 04/20/2023 Start: 02-18-2023 End: 04-20-2023 Prostate specific Ag [Mass/volume] in Serum or Plasma PSA/PROSTSPECAG DIAG Lab Routine Family history of prostate cancer in father Benign prostatic hyperplasia, unspecified whether lower urinary tract symptoms present Expected: 02/18/2023 (Approximate), Expires: 04/20/2023 [facility] Work Phone: Comment on above: Expected: 02/18/2023 (Approximate), Expi res: 04/20/2023 Start: 02-04-2023 Colonoscopy COLONOSCOPY [facility] Start: 02-04-2023 COLORECTAL CANCER SCREENING COLORECTAL CANCER SCREENING [facility] Start: 02-04-2023 Hepatitis B surface antibody level LDL CHOLESTEROL [facility] Start: 02-04-2023 Screening for malignant neoplasm of colon [facility] Start: 10-29-2022 BP CONTROLLED (<130/80) BP CONTROLLED (<130/80) [facility] Start: 08-11-2022 ANNUAL PCP TEAM CHRONIC DISEASE VISIT ANNUAL PCP TEAM CHRONIC DISEASE VISIT [facility] Start: 08-11-2022 BP CONTROLLED (<130/80) BP CONTROLLED (<130/80) [facility] Start: 08-07-2022 Hepatitis B surface antibody level LDL CHOLESTEROL [facility] Start: 07-12-2022 ADVANCE DIRECTIVE DISCUSSION ADVANCE DIRECTIVE DISCUSSION [facility] Start: 07-12-2022 DEPRESSION ASSESSMENT DEPRESSION ASSESSMENT [facility] Start: 03-12-2022 Influenza vaccination [facility] Start: 03-09-2022 Urine microalbumin profile [facility] Start: 01-08-2022 Influenza vaccination INFLUENZA (#1) [facility] Comment on above: Postponed from 03/12/2021 (Declined at t his time) Start: 2021 ADVANCE DIRECTIVE DISCUSSION ADVANCE DIRECTIVE DISCUSSION [facility] Start: 2021 PNEUMOCOCCAL: 65+ (1 - PCV) PNEUMOCOCCAL: 65+ (1 - PCV) [facility] Start: 07-12-2021 DEPRESSION ASSESSMENT DEPRESSION ASSESSMENT [facility] Start: 05-16-2021 BP CONTROLLED (<130/80) BP CONTROLLED (<130/80) [facility] Start: 05-09-2021 Adult depression screening assessment DEPRESSION SCREENING [facility] Start: 05-29-2020 End: 05-29-2020 Appointment Appointment [facility] Work Phone: Start: 2016 RSV Vaccine (1 - 1-dose 60+ series) RSV Vaccine (1 - 1-dose 60+ series) [facility] Start: 2016 RSV Vaccine (1 - Risk 60-74 years 1-dose series) RSV Vaccine (1 - Risk 60-74 years 1-dose series) [facility] Start: 2006 SHINGRIX VACCINE (1 of 2) SHINGRIX VACCINE (1 of 2) [facility] Start: 2001 COLOGUARD (FIT-DNA) COLOGUARD (FIT-DNA) [facility] Start: [address] COLONOGRAPHY [facility] Start: 2001 FECAL OCCULT BLOOD FECAL OCCULT BLOOD [facility] Start: 2001 Screening for malignant neoplasm of colon [facility] Start: 2001 SIGMOIDOSCOPY SIGMOIDOSCOPY [facility] Start: 1961 COVID-19 VACCINE (#1) COVID-19 VACCINE (#1) [facility] Start: 1961 COVID-19 VACCINE (1) COVID-19 VACCINE (1) [facility] Start: 06-05-1956 COVID-19 VACCINE (#1) COVID-19 VACCINE (#1) [facility] End: 11-11-2022 ECG COMPLETE ECG COMPLETE ECG Routine Essential hypertension S/P AVR (aortic valve replacement) 1 Occurrences starting 11/11/2021 until 11/11/2022 [facility] Work Phone: Comment on above: 1 Occurrences starting 11/11/2021 until 11/11/2022 End: 11-26-2023 ECG COMPLETE ECG COMPLETE ECG Routine Nonrheumatic aortic valve stenosis 1 Occurrences starting 11/25/2022 until 11/26/2023 [facility] Work Phone: Comment on above: 1 Occurrences starting 11/25/2022 until 11/26/2023 End: 12-08-2024 ECG COMPLETE ECG COMPLETE ECG Routine Nonrheumatic aortic valve stenosis Encounter for follow-up for aortic valve replacement 1 Occurrences starting 12/09/2023 until 12/08/2024 [facility] Work Phone: Comment on above: 1 Occurrences starting 12/09/2023 until 12/08/2024 End: 05-06-2025 ECG COMPLETE ECG COMPLETE ECG Routine S/P AVR 1 Occurrences starting 05/06/2024 until 05/06/2025 [facility] Work Phone: Comment on above: 1 Occurrences starting 05/06/2024 until 05/06/2025 End: 11-26-2023 Echocardiography ECHO Cardiology Routine Nonrheumatic aortic valve stenosis 1 Occurrences starting 11/25/2022 until 11/26/2023 [facility] Work Phone: Comment on above: 1 Occurrences starting 11/25/2022 until 11/26/2023 End: 05-06-2025 Echocardiography ECHO Cardiology Routine S/P AVR 1 Occurrences starting 05/06/2024 until 05/06/2025 [facility] Comment on above: 1 Occurrences starting 05/06/2024 until 05/06/2025 Removal impacted cer umen instrumentation unilat REMOVAL OF IMPACTED CERUMEN - INSTRUMENTATION Procedures Routine Bilateral impacted cerumen Ordered: 07/02/2022 [facility] Work Phone: Comment on above: Ordered: 07/02/2022 Removal impacted cer umen instrumentation unilat REMOVAL OF IMPACTED CERUMEN - INSTRUMENTATION Procedures Routine Bilateral impacted cerumen Ordered: 06/04/2023 [facility] Work Phone: Comment on above: Ordered: 06/04/2023 Removal impacted cer umen instrumentation unilat REMOVAL OF IMPACTED CERUMEN - INSTRUMENTATION Procedures Routine Bilateral impacted cerumen Ordered: 07/20/2024 [facility] Work Phone: Comment on above: Ordered: 07/20/2024 Removal impacted cer umen irrigation/lvg unilat AMBULATORY EAR LAVAGE/IRRIGATION Procedures Routine Bilateral impacted cerumen Ordered: 12/08/2022 [facility] Work Phone: Comment on above: Ordered: 12/08/2022 End: 02-28-2026 Screening colonoscopy COLONOSCOPY SCREENING Endoscopy Routine Screening for colon cancer History of colonic polyps 1 Occurrences starting 02/28/2025 until 02/28/2026 [facility] Work Phone: Comment on above: 1 Occurrences starting 02/28/2025 until 02/28/2026 [facility] Immunizations Immunization Date Immunization Notes Care Provider [facility] 02-18-2022 pneumococcal (PCV20) vaccine, 20 valent (PREVNAR 20) Deshawn Noel MD Work Phone: [facility] 02-18-2022 pneumococcal Conjugate, unspecified formulation Deshawn Noel MD Work Phone: [facility] Work Phone: 05-16-2020 influenza, injectabl e, quadrivalent, contains preservative [facility] Provider [facility] 05-16-2020 influenza virus vaccine, unspecified formulation Jarvis Lake MD Work Phone: [facility] 05-02-2019 influenza, injectabl e, quadrivalent, contains preservative [facility] Provider [facility] 04-12-2017 influenza, injectabl e, quadrivalent, contains preservative [facility] Provider [facility] 05-26-2016 influenza, injectabl e, quadrivalent, contains preservative [facility] Provider [facility] 03-09-2012 tetanus toxoid, reduced diphtheria toxoid, and acellular pertussis vaccine, adsorbed [facility] Provider [facility] 09-29-1999 diphtheria and tetan us toxoids, adsorbed for pediatric use [facility] Provider [facility] Work Phone: Payers Date Payer Category Payer Self-pay [id number] 2023 Unknown [id number] 2021 [facility] [place] DICARE SUPPLEMENT [id number] 2021 Medicare MEDICARE MEDICAR E A AND B [id number] 2021-Present [phone] [place] [address] Medicare [id number] 2021 Medicare [id number] 2021 Unknown LUIS ARMANDOEM LUIS ARMANDO[place] ME DICARE SUPPLEMENT [id number] 2021-Present [phone] [address] [place] [address] Indemnity [id number] 2021 Medicare [id number] 2021 Unknown [id number] 2021 Unknown [id number] 2010 Private Health Insurance [id number] 2007 Private Health Insurance [id number] 1955 Unknown [id number] 1956 Unknown [id number] 1956 Unknown [id number] 1956 Unknown [id number] Unknown [id number] Unknown [id number] [id number] Social History Date Type Detail Facility Start: 05-29-2020 End: 05-29-2020 Assertion Unknown if ever smoked [facility] Work Phone: Start: 09-05-2020 End: 03-24-2022 Tobacco smoking status NHIS Never smoked tobacco [facility] Start: 08-11-2021 End: 03-20-2025 Alcohol intake Current non-drinker of alcohol (finding) [facility] Start: 06-08-2021 End: 01-05-2023 History SDOH Social Connections Phone 98 [facility] Start: 06-08-2021 End: 01-05-2023 History SDOH Social Connections Living 3 [facility] Start: 06-08-2021 End: 01-05-2023 History SDOH Physical Activity DPW 0 [facility] Start: 05-09-2020 End: 06-08-2021 History SDOH Stress 1 [facility] Start: 05-09-2020 Education 17 [facility] Start: 09-05-2020 End: 03-24-2022 Tobacco Comment ETS in childhood home, motrher smoker. [facility] Start: 1955 Sex Assigned At Male [facility] Start: 06-29-2020 End: 02-18-2022 Exposure to SARS-CoV-2 (event) Not sure [facility] Work Phone: Start: 09-05-2020 End: 03-24-2022 Tobacco use and exposure Smokeless tobacco non-user [facility] Work Phone: Start: 01-05-2023 End: 02-19-2025 History of Social function [facility] Start: 01-05-2023 End: 02-19-2025 Social connection and isolation panel [facility] Start: 06-12-2012 In a typical week, how many times do you talk on the telephone with family, friends, or neighbors? Patient refused [facility] Are you now , , , , never or living with a partner? [facility] How often to you hav e a drink containing alcohol? Never [facility] (I/We) worried wheth er (my/our) food would run out before (I/we) got money to buy more. DK or Refused [facility] Start: 04-04-2019 Gender identity Identifies as male gender (finding) [facility] Start: 04-04-2019 Sexual orientation Heterosexual (finding) [facility] Do you feel stress - tense, restless, nervous, or anxious, or unable to sleep at night because your mind is troubled all the time - these days [OSQ] Not at all [facility] Has the [employer], [employer], or water [employer] threatened to shut off services in your home in past 12Mo No [facility] Do you belong to any clubs or organizations such as cheondoism groups, unions, fraternal or athletic groups, or school groups? Yes [facility] (I/We) worried wheth er (my/our) food would run out before (I/we) got money to buy more. Never true [facility] Medical Equipment Procedure Code Equipment Code Equipment Origin al Text Equipment Identifier Dates Parmelee Thk1.65mm P tfe 4x.5in Cardiovascular Sterile - [id number] Start: 11-12-2017 Valve Aort 27mm Crp-Ed Thfx - [id number] Start: 11-12-2017 Comment on above: Description: [id number] Goals Date Patient Goal Desired Activity /State Personal health goal Functional Status Date Assessment Result Facility 11-17-2017 Are you deaf, or do you have serious difficulty hearing No 11/17/2017 10:35 AM EDT Rayna BrownRn)(Hist), RN [facility] 11-17-2017 Are you blind, or do you have serious difficulty seeing, even when wearing glasses No 11/17/2017 10:35 AM EDT Rayna Brown)(Hist), RN No [facility] 11-17-2017 Do you have serious difficulty walking or climbing stairs No 11/17/2017 10:35 AM EDT Rayna Brown)(Hist), RN No [facility] 11-17-2017 Do you have difficul ty dressing or bathing No 11/17/2017 10:35 AM EDT Rayna BrownRn)(Hist), RN No [facility] 11-17-2017 Because of a physica l, mental, or emotional condition, do you have difficulty doing errands alone such as visiting a physician's office or shopping No 11/17/2017 10:35 AM EDT Rayna Brown)(Hist), RN No [facility] Mental Status Date Assessment Result Facility 11-17-2017 Because of a physica l, mental, or emotional condition, do you have serious difficulty concentrating, remembering, or making decisions No 11/17/2017 10:35 AM EDT Rayna Brown)(Hist), RN No [facility] Clinical Notes 11-15-2017 to 03-20-2025 Discharge Instr - Bhumi Berry RN - 03/20/2025 3:19 PM EDTDischarge Pau - Bhumi Berry RN - 03/20/2025 3:19 PM EDTRose Beebe MD - 03/20/2025 2:30 PM EDT Note Date & Type Note Facility 03-20-2025 Note Formatting of this n ote might be different from the original. The patient received a copy of Colonoscopy discharge instructions that contain information for how to contact the physician who performed the procedure and when to seek medical care. [facility] 03-20-2025 Miscellaneous Notes The patient received a copy of Colonoscopy discharge instructions that contain information for how to contact the physician who performed the procedure and when to seek medical care. documented in this encounter [facility] 03-20-2025 Attending History and physical note UPDATED PROCEDURAL SEDATION HISTORY AND PHYSICAL EXAMINATION SERVICE DATE: 03/20/2025 SERVICE TIME: 14:22 PHYSICAL EXAM MUST BE COMPLETED ON ADMISSION PROCEDURE: colonoscop, possible biopsies Procedure Indications: screening for colon ancer The History and Physical (completed in the past 30 days) has been reviewed and the patient has been examined. The contents accurately reflect the patient's condition with the following additions or revisions since the H&P was completed. ASA Class: ASA Class: Patient with severe systemic disease Examination indicates no changes. AIRWAY: Mouth opening greater than 3 fingerbreadths: Yes Neck Full Range of Motion: Yes LUNGS: Lungs clear to auscultation CARDIAC: Regular rhythm,Regular rate Provisional Diagnosis/Treatment Plan: olonscopy, possible biopsies Sedation Goal: Moderate This H&P can be found in the Electronic Medical Record. SIGNATURE: Rose Beebe MD PATIENT NAME: Bonny Redding JrRakan DATE: March 20, 2025 TIME: 2:22 PM Source Note - Rose Beebe MD - 03/20/2025 2:30 PM EDT HISTORY AND PHYSICAL Bonny Redding . : 1955 REFERRING PHYSICIAN: Ye Sharma [address] [facility] [address] CHIEF COMPLAINT: Patient presents with: Consult: Due for colonoscopy, denies GI issues HPI: Bonny is a 69 year old male referred for endoscopy. Bonny notes due for screening colonoscopy-hx of polyps (2019). Bonny denies abdominal pain. Bonny denies diarrhea. Bonny denies constipation. Bonny denies a change in bowel habits. Bonny denies melena. Bonny denies bright red blood per rectum. Bonny denies hemorrhoids. Bonny denies family history of colon issues. Bonny denies heartburn. Bonny denies dysphagia. Bonny denies a history of ulcers/ peptic ulcer disease. [place] follows with [facility] cardiology for hx of HTN, HLD, CAD & s/p AVR. Last OV 04/2024. He denies CP, SOB, dizziness, palpitations, syncope, edema, recent hospitalizations Other medical history is significant for JULIET c/w CPAP & obesity. Bonny has undergone prior endoscopy. Last colonoscopy was 01/[address] Mccoy at [facility]. Sedation: Fentanyl 100 micrograms IV, Midazolam 5 mg IV Impression: - One 8 mm polyp in the ascending colon, removed with a hot snare. Resected and retrieved. - One 10 mm polyp in the ascending colon, removed with a hot snare. Resected and retrieved. Clip was placed. CONVERTED FINAL DIAGNOSIS Ascending colon, polypectomy - Fragments of tubular adenoma. TP/ka 02/06/2020 CURRENT MEDICATIONS Current Outpatient Medications Medication Sig losartan (COZAAR) 100 mg tablet Take 1 tablet by mouth once daily. hydroCHLOROthiazide 12.5 mg capsule Take 1 capsule by mouth once daily. atorvastatin (LIPITOR) 20 mg tablet Take 1 tablet by mouth once daily. amLODIPine (NORVASC) 5 mg tablet Take 1 tablet by mouth once daily. Tadalafil (CIALIS) 20 mg tablet Take 1 tablet by mouth as needed. aspirin 81 mg chewable tablet Take 2 tablets by mouth once daily. peg 3350-Electrolytes (GOLYTELY) 236-22.74-6.74 -5.86 gram suspension Refer to printed prep instructions from your provider. OTC PRODUCT Vitamin D 500mg daily No current facility-administered medications for this visit. ALLERGIES: Patient has no known allergies. PAST MEDICAL HISTORY PAST MEDICAL HISTORY Diagnosis Date Aortic stenosis with bicuspid valve (HCC) 03/01/2015 Benign neoplasm of colon Chronic cough 05/16/2020 No resolution when ACEi stopped. Negative methecholine challenge 09/2020. Coronary artery disease Essential hypertension, benign 15 yr Hyperlipidemia LDL goal <130 Morbid (severe) obesity due to excess calories (HCC) Obesity, unspecified Other and unspecified hyperlipidemia 15 yrs Peripheral neuropathy 11/29/2014 Personal history of colonic polyps Primary osteoarthritis, left hand Snoring Unspecified sleep apnea 2006 uses CPAP Vitamin D deficiency 2017 PAST SURGICAL HISTORY PAST SURGICAL HISTORY Procedure Laterality Date CATARACT EXTRACTION HX 2014 COLONOSCOPY FLX DX W/COLLJ SPEC WHEN PFRMD 08/31/2007 Colonoscopy COLONOSCOPY FLX DX W/COLLJ SPEC WHEN PFRMD N/A 10/12/2016 COLONOSCOPY W/BIOPSY SINGLE/MULTIPLE 07/20/2011 EXC LESION TDN SHTH/JT CAPSL HAND/FNGR 02/24/2013 Excision ganglion cyst left middle finger HEART SURGERY HX 2018 Aortic valve surgery LAPAROSCOPY SURG RPR INITIAL INGUINAL HERNIA 05/17/2008 RIGHT PAST SURGICAL HISTORY OF tonsils and adenoids removed PAST SURGICAL HISTORY OF hernia PAST SURGICAL HISTORY OF 04/18/2008 right meniscus repair PAST SURGICAL HISTORY OF 07/2010 right foot surgery PAST SURGICAL HISTORY OF Right 07/28/2022 Right carpometacarpal arthroplasty with flexor carpi radialis interposition, first dorsal compartment tenosynovectomy right partial trapezodi excision REPAIR ROTATOR CUFF,ACUTE Right 05/25/2024 [facility] RPR UMBILICAL HRNA 5 YRS/> REDUCIBLE 05/17/2008 SEPTOPLASTY/SUBMUCOUS RESECJ W/WO CARTILAGE GRF 2004 Septoplasty TOTAL KNEE REPLACEMENT Left 11/13/2022 Dr. Jackson Mera TOTAL KNEE REPLACEMENT Right 02/19/2023 FAMILY HISTORY FAMILY HISTORY Problem Relation Age of Onset Alzheimer's Disease Mother age 76-COPD COPD Mother other (Hypertension, Hyperlipidemia) Mother Coronary Artery Disease Father 60 valve replacement Prostate Cancer Father other (PARKINSON) Father Prostate Cancer Paternal Uncle Prostate Cancer Maternal Grandfather Hypertension Sister [SOCIAL HISTORY] [SOCIAL HISTORY] Social History Tobacco Use Smoking status: Never Smokeless tobacco: Never Tobacco comments: ETS in childhood home, motrher smoker. Vaping Use Vaping status: Never Used Substance Use Topics Alcohol use: No Drug use: No REVIEW OF SYMPTOMS: REVIEW OF SYSTEMS: General: The patient denies fatigue, denies weight loss, denies weight gain, denies feeling hot, and feelings of cold. Eyes: The patient denies glaucoma, denies eye injury/surgery, denies glasses or contacts. Ear/Nose/Throat: The patient denies allergies, denies hayfever, denies ear infections, and denies bloody noses. Cardiovascular: The patient denies chest pain, + heart disease, denies high blood pressure, + high cholesterol, and denies poor circulation. Respiratory: The patient denies tuberculosis, denies pneumonia, denies frequent cough, denies shortness of breath, and denies coughing up blood. Gastrointestinal: The patient denies difficulty swallowing, denies acid reflux, denies ulcers, denies jaundice/hepatitis, denies gallbladder problems, denies vomiting, denies black or tarry stools, denies hemorrhoids, denies bleeding from rectum, denies diverticulitis, denies constipation, denies diarrhea, denies loss of stool control, and denies hernias. Kidney/Bladder: The patient denies kidney stones, denies urine infections, and denies bloody urine. Skin: The patient denies a history of skin cancer, denies bleeding/changing moles, and denies a history of skin rash. Neurologic: The patient denies a history of epilepsy/convulsions, denies headaches, denies head/spinal injuries, and denies stroke/TIA. Psychiatric: The patient denies psychiatric medications, denies depression, and denies voices. Endocrine: The patient denies thyroid disorders, denies diabetes, and denies hormonal problems. Hematologic: The patient + a history of bruising, denies bleeding, and denies anemia. Infections: The patient denies a history of measles and mumps, denies rheumatic fever, and denies sexually transmitted diseases. Musculoskeletal: The patient denies back pain/injury, denies back problems, denies sciatica, denies knee/foot trouble, denies arthritis, or denies gout. PHYSICAL EXAMINATION: General: The patient is 69 year old, male well nourished, well hydrated in no acute distress. The patient is oriented to time, place, and person. VITALS: Blood pressure 136/77, pulse (!) 57, resp. rate 16, weight (!) 146.1 kg (322 lb), SpO2 97%. Body mass index is 43.67 kg/m . HEENT: Normal cephalic, ataumatic, pupils are equally round, sclera are anicteric, mucous membranes are moist, oropharynx is clear. Neck has no masses or asymmetry . Respiratory: Clear to auscultation. Cardiac: Regular rate and rhythm. Abdominal exam: Soft, nontender, with no palpable masses. No hepatosplenomegaly. No palpable hernias. Extremities: no clubbing or cyanosis LABORATORY VALUES: As Noted RADIOLOGIC STUDIES: As Noted Assessment IMPRESSION: screen for colon cancer, history of colon polyps PLAN: I have reviewed my findings with the surgeon. Will plan for lower endoscopy. We discussed the risks and benefits of the planned endoscopy in terms understandable to the patient. I have informed the patient that complications can occur including failure to complete the endoscopy and perforation. Bonny had the opportunity to ask questions concerning the planned endoscopy. Bonny freely consents to surgery. I plan to use Golytely bowel preparation I have explained to the patient the difference between IV conscious sedation and MAC anesthesia - and I have offered either, according to the patient's wishes. I have explained that with IV conscious sedation there is no anesthesia provider available and therefore there is a limitation of the amount of IV medications that can be given and that the patient may wake up in the middle of the procedure and/or experience pain/discomfort during the procedure. Further discussion was done and the patient was given the opportunity to ask questions and all questions were answered. Bonny chooses IV conscious sedation. Bonny was counseled that if there are changes in his/her medical condition, to let the office know if surgery should proceed. If there are changes in patient's medical condition from time of this encounter to the day of the procedure that preclude anesthesia, patient may have procedure cancelled for patient's safety. Diagnoses: (Z86.0100) History of colonic polyps (primary encounter diagnosis) (Z12.11) Screening for colon cancer Consultation requested by Ye Sharma CNP for an opinion regarding colon cancer screening. My final recommendations will be communicated back to the requesting physician by way of shared Medical record or letter to requesting physician via US mail. Portions of this documentation were copied and pasted from previous office visit notes in order to provide a cohesive continuity of the history. The note has been reviewed and edited and updated as necessary. 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 : 1955 REFERRING PHYSICIAN: Ye Sharma [address] [facility] [address] CHIEF COMPLAINT: Patient presents with: Consult: Due for colonoscopy, denies GI issues HPI: Bonny is a 69 year old male referred for endoscopy. Bonny notes due for screening colonoscopy-hx of polyps (2019). Bonny denies abdominal pain. Bonny denies diarrhea. Bonny denies constipation. Bonny denies a change in bowel habits. Bonny denies melena. Bonny denies bright red blood per rectum. Bonny denies hemorrhoids. Bonny denies family history of colon issues. Bonny denies heartburn. Bonny denies dysphagia. Bonny denies a history of ulcers/ peptic ulcer disease. [place] follows with [facility] cardiology for hx of HTN, HLD, CAD & s/p AVR. Last OV 04/2024. He denies CP, SOB, dizziness, palpitations, syncope, edema, recent hospitalizations Other medical history is significant for JULIET c/w CPAP & obesity. Bonny has undergone prior endoscopy. Last colonoscopy was 01/[address] Mccoy at [facility]. Sedation: Fentanyl 100 micrograms IV, Midazolam 5 mg IV Impression: - One 8 mm polyp in the ascending colon, removed with a hot snare. Resected and retrieved. - One 10 mm polyp in the ascending colon, removed with a hot snare. Resected and retrieved. Clip was placed. CONVERTED FINAL DIAGNOSIS Ascending colon, polypectomy - Fragments of tubular adenoma. TP/maksim 02/06/2020 CURRENT MEDICATIONS Current Outpatient Medications Medication Sig losartan (COZAAR) 100 mg tablet Take 1 tablet by mouth once daily. hydroCHLOROthiazide 12.5 mg capsule Take 1 capsule by mouth once daily. atorvastatin (LIPITOR) 20 mg tablet Take 1 tablet by mouth once daily. amLODIPine (NORVASC) 5 mg tablet Take 1 tablet by mouth once daily. Tadalafil (CIALIS) 20 mg tablet Take 1 tablet by mouth as needed. aspirin 81 mg chewable tablet Take 2 tablets by mouth once daily. peg 3350-Electrolytes (GOLYTELY) 236-22.74-6.74 -5.86 gram suspension Refer to printed prep instructions from your provider. OTC PRODUCT Vitamin D 500mg daily No current facility-administered medications for this visit. ALLERGIES: Patient has no known allergies. PAST MEDICAL HISTORY PAST MEDICAL HISTORY Diagnosis Date Aortic stenosis with bicuspid valve (HCC) 03/01/2015 Benign neoplasm of colon Chronic cough 05/16/2020 No resolution when ACEi stopped. Negative methecholine challenge 09/2020. Coronary artery disease Essential hypertension, benign 15 yr Hyperlipidemia LDL goal <130 Morbid (severe) obesity due to excess calories (HCC) Obesity, unspecified Other and unspecified hyperlipidemia 15 yrs Peripheral neuropathy 11/29/2014 Personal history of colonic polyps Primary osteoarthritis, left hand Snoring Unspecified sleep apnea 2007 uses CPAP Vitamin D deficiency 2018 PAST SURGICAL HISTORY PAST SURGICAL HISTORY Procedure Laterality Date CATARACT EXTRACTION HX 2014 COLONOSCOPY FLX DX W/COLLJ SPEC WHEN PFRMD 08/31/2007 Colonoscopy COLONOSCOPY FLX DX W/COLLJ SPEC WHEN PFRMD N/A 10/12/2016 COLONOSCOPY W/BIOPSY SINGLE/MULTIPLE 07/20/2011 EXC LESION TDN SHTH/JT CAPSL HAND/FNGR 02/24/2013 Excision ganglion cyst left middle finger HEART SURGERY HX 2018 Aortic valve surgery LAPAROSCOPY SURG RPR INITIAL INGUINAL HERNIA 05/17/2008 RIGHT PAST SURGICAL HISTORY OF tonsils and adenoids removed PAST SURGICAL HISTORY OF hernia PAST SURGICAL HISTORY OF 04/18/2008 right meniscus repair PAST SURGICAL HISTORY OF 07/2010 right foot surgery PAST SURGICAL HISTORY OF Right 07/28/2022 Right carpometacarpal arthroplasty with flexor carpi radialis interposition, first dorsal compartment tenosynovectomy right partial trapezodi excision REPAIR ROTATOR CUFF,ACUTE Right 05/25/2024 [facility] RPR UMBILICAL HRNA 5 YRS/> REDUCIBLE 05/17/2008 SEPTOPLASTY/SUBMUCOUS RESECJ W/WO CARTILAGE GRF 2004 Septoplasty TOTAL KNEE REPLACEMENT Left 11/13/2022 Dr. Jackson Mera TOTAL KNEE REPLACEMENT Right 02/19/2023 FAMILY HISTORY FAMILY HISTORY Problem Relation Age of Onset Alzheimer's Disease Mother age 76-COPD COPD Mother other (Hypertension, Hyperlipidemia) Mother Coronary Artery Disease Father 60 valve replacement Prostate Cancer Father other (PARKINSON) Father Prostate Cancer Paternal Uncle Prostate Cancer Maternal Grandfather Hypertension Sister [SOCIAL HISTORY] [SOCIAL HISTORY] Social History Tobacco Use Smoking status: Never Smokeless tobacco: Never Tobacco comments: ETS in childhood home, motrher smoker. Vaping Use Vaping status: Never Used Substance Use Topics Alcohol use: No Drug use: No REVIEW OF SYMPTOMS: REVIEW OF SYSTEMS: General: The patient denies fatigue, denies weight loss, denies weight gain, denies feeling hot, and feelings of cold. Eyes: The patient denies glaucoma, denies eye injury/surgery, denies glasses or contacts. Ear/Nose/Throat: The patient denies allergies, denies hayfever, denies ear infections, and denies bloody noses. Cardiovascular: The patient denies chest pain, + heart disease, denies high blood pressure, + high cholesterol, and denies poor circulation. Respiratory: The patient denies tuberculosis, denies pneumonia, denies frequent cough, denies shortness of breath, and denies coughing up blood. Gastrointestinal: The patient denies difficulty swallowing, denies acid reflux, denies ulcers, denies jaundice/hepatitis, denies gallbladder problems, denies vomiting, denies black or tarry stools, denies hemorrhoids, denies bleeding from rectum, denies diverticulitis, denies constipation, denies diarrhea, denies loss of stool control, and denies hernias. Kidney/Bladder: The patient denies kidney stones, denies urine infections, and denies bloody urine. Skin: The patient denies a history of skin cancer, denies bleeding/changing moles, and denies a history of skin rash. Neurologic: The patient denies a history of epilepsy/convulsions, denies headaches, denies head/spinal injuries, and denies stroke/TIA. Psychiatric: The patient denies psychiatric medications, denies depression, and denies voices. Endocrine: The patient denies thyroid disorders, denies diabetes, and denies hormonal problems. Hematologic: The patient + a history of bruising, denies bleeding, and denies anemia. Infections: The patient denies a history of measles and mumps, denies rheumatic fever, and denies sexually transmitted diseases. Musculoskeletal: The patient denies back pain/injury, denies back problems, denies sciatica, denies knee/foot trouble, denies arthritis, or denies gout. PHYSICAL EXAMINATION: General: The patient is 69 year old, male well nourished, well hydrated in no acute distress. The patient is oriented to time, place, and person. VITALS: Blood pressure 136/77, pulse (!) 57, resp. rate 16, weight (!) 146.1 kg (322 lb), SpO2 97%. Body mass index is 43.67 kg/m . HEENT: Normal cephalic, ataumatic, pupils are equally round, sclera are anicteric, mucous membranes are moist, oropharynx is clear. Neck has no masses or asymmetry . Respiratory: Clear to auscultation. Cardiac: Regular rate and rhythm. Abdominal exam: Soft, nontender, with no palpable masses. No hepatosplenomegaly. No palpable hernias. Extremities: no clubbing or cyanosis LABORATORY VALUES: As Noted RADIOLOGIC STUDIES: As Noted Assessment IMPRESSION: screen for colon cancer, history of colon polyps PLAN: I have reviewed my findings with the surgeon. Will plan for lower endoscopy. We discussed the risks and benefits of the planned endoscopy in terms understandable to the patient. I have informed the patient that complications can occur including failure to complete the endoscopy and perforation. Bonny had the opportunity to ask questions concerning the planned endoscopy. Bonny freely consents to surgery. I plan to use Golytely bowel preparation I have explained to the patient the difference between IV conscious sedation and MAC anesthesia - and I have offered either, according to the patient's wishes. I have explained that with IV conscious sedation there is no anesthesia provider available and therefore there is a limitation of the amount of IV medications that can be given and that the patient may wake up in the middle of the procedure and/or experience pain/discomfort during the procedure. Further discussion was done and the patient was given the opportunity to ask questions and all questions were answered. Bonny chooses IV conscious sedation. Bonny was counseled that if there are changes in his/her medical condition, to let the office know if surgery should proceed. If there are changes in patient's medical condition from time of this encounter to the day of the procedure that preclude anesthesia, patient may have procedure cancelled for patient's safety. Diagnoses: (Z86.0100) History of colonic polyps (primary encounter diagnosis) (Z12.11) Screening for colon cancer Consultation requested by Ye Sharma CNP for an opinion regarding colon cancer screening. My final recommendations will be communicated back to the requesting physician by way of shared Medical record or letter to requesting physician via US mail. Portions of this documentation were copied and pasted from previous office visit notes in order to provide a cohesive continuity of the history. The note has been reviewed and edited and updated as necessary. Va Real APRN.BOARD WRITER [facility] [place] 03-20-2025 History and physical note UPDATED PROCEDURAL SEDATION HISTORY AND PHYSICAL EXAMINATION SERVICE DATE: 03/20/2025 SERVICE TIME: 14:22 PHYSICAL EXAM MUST BE COMPLETED ON ADMISSION PROCEDURE: colonoscop, possible biopsies Procedure Indications: screening for colon ancer The History and Physical (completed in the past 30 days) has been reviewed and the patient has been examined. The contents accurately reflect the patient's condition with the following additions or revisions since the H&P was completed. ASA Class: ASA Class: Patient with severe systemic disease Examination indicates no changes. AIRWAY: Mouth opening greater than 3 fingerbreadths: Yes Neck Full Range of Motion: Yes LUNGS: Lungs clear to auscultation CARDIAC: Regular rhythm,Regular rate Provisional Diagnosis/Treatment Plan: olonscopy, possible biopsies Sedation Goal: Moderate This H&P can be found in the Electronic Medical Record. SIGNATURE: Rose Beebe MD PATIENT NAME: Bonny Redding Jr. DATE: March 20, 2025 TIME: 2:22 PM Source Note - Rose Beebe MD - 03/20/2025 2:30 PM EDT HISTORY AND PHYSICAL Bonny Redding Jr. : 1955 REFERRING PHYSICIAN: Ye Sharma [address] [facility] [address] CHIEF COMPLAINT: Patient presents with: Consult: Due for colonoscopy, denies GI issues HPI: Bonny is a 69 year old male referred for endoscopy. Bonny notes due for screening colonoscopy-hx of polyps (2019). Bonny denies abdominal pain. Bonny denies diarrhea. Bonny denies constipation. Bonny denies a change in bowel habits. Bonny denies melena. Bonny denies bright red blood per rectum. Bonny denies hemorrhoids. Bonny denies family history of colon issues. Bonny denies heartburn. Bonny denies dysphagia. Bonny denies a history of ulcers/ peptic ulcer disease. [place] follows with [facility] cardiology for hx of HTN, HLD, CAD & s/p AVR. Last OV 04/2024. He denies CP, SOB, dizziness, palpitations, syncope, edema, recent hospitalizations Other medical history is significant for JULIET c/w CPAP & obesity. Bonny has undergone prior endoscopy. Last colonoscopy was 01/[address] Mccoy at [facility]. Sedation: Fentanyl 100 micrograms IV, Midazolam 5 mg IV Impression: - One 8 mm polyp in the ascending colon, removed with a hot snare. Resected and retrieved. - One 10 mm polyp in the ascending colon, removed with a hot snare. Resected and retrieved. Clip was placed. CONVERTED FINAL DIAGNOSIS Ascending colon, polypectomy - Fragments of tubular adenoma. TP/ka 02/06/2020 CURRENT MEDICATIONS Current Outpatient Medications Medication Sig losartan (COZAAR) 100 mg tablet Take 1 tablet by mouth once daily. hydroCHLOROthiazide 12.5 mg capsule Take 1 capsule by mouth once daily. atorvastatin (LIPITOR) 20 mg tablet Take 1 tablet by mouth once daily. amLODIPine (NORVASC) 5 mg tablet Take 1 tablet by mouth once daily. Tadalafil (CIALIS) 20 mg tablet Take 1 tablet by mouth as needed. aspirin 81 mg chewable tablet Take 2 tablets by mouth once daily. peg 3350-Electrolytes (GOLYTELY) 236-22.74-6.74 -5.86 gram suspension Refer to printed prep instructions from your provider. OTC PRODUCT Vitamin D 500mg daily No current facility-administered medications for this visit. ALLERGIES: Patient has no known allergies. PAST MEDICAL HISTORY PAST MEDICAL HISTORY Diagnosis Date Aortic stenosis with bicuspid valve (HCC) 03/01/2015 Benign neoplasm of colon Chronic cough 05/16/2020 No resolution when ACEi stopped. Negative methecholine challenge 09/2020. Coronary artery disease Essential hypertension, benign 15 yr Hyperlipidemia LDL goal <130 Morbid (severe) obesity due to excess calories (HCC) Obesity, unspecified Other and unspecified hyperlipidemia 15 yrs Peripheral neuropathy 11/29/2014 Personal history of colonic polyps Primary osteoarthritis, left hand Snoring Unspecified sleep apnea 2007 uses CPAP Vitamin D deficiency 2018 PAST SURGICAL HISTORY PAST SURGICAL HISTORY Procedure Laterality Date CATARACT EXTRACTION HX 2013 COLONOSCOPY FLX DX W/COLLJ SPEC WHEN PFRMD 08/31/2007 Colonoscopy COLONOSCOPY FLX DX W/COLLJ SPEC WHEN PFRMD N/A 10/12/2016 COLONOSCOPY W/BIOPSY SINGLE/MULTIPLE 07/20/2011 EXC LESION TDN SHTH/JT CAPSL HAND/FNGR 02/24/2013 Excision ganglion cyst left middle finger HEART SURGERY HX 2018 Aortic valve surgery LAPAROSCOPY SURG RPR INITIAL INGUINAL HERNIA 05/17/2008 RIGHT PAST SURGICAL HISTORY OF tonsils and adenoids removed PAST SURGICAL HISTORY OF hernia PAST SURGICAL HISTORY OF 04/18/2008 right meniscus repair PAST SURGICAL HISTORY OF 07/2010 right foot surgery PAST SURGICAL HISTORY OF Right 07/28/2022 Right carpometacarpal arthroplasty with flexor carpi radialis interposition, first dorsal compartment tenosynovectomy right partial trapezodi excision REPAIR ROTATOR CUFF,ACUTE Right 05/25/2024 [facility] RPR UMBILICAL HRNA 5 YRS/> REDUCIBLE 05/17/2008 SEPTOPLASTY/SUBMUCOUS RESECJ W/WO CARTILAGE GRF 2004 Septoplasty TOTAL KNEE REPLACEMENT Left 11/13/2022 Dr. Jackson Mera TOTAL KNEE REPLACEMENT Right 02/19/2023 FAMILY HISTORY FAMILY HISTORY Problem Relation Age of Onset Alzheimer's Disease Mother age 76-COPD COPD Mother other (Hypertension, Hyperlipidemia) Mother Coronary Artery Disease Father 60 valve replacement Prostate Cancer Father other (PARKINSON) Father Prostate Cancer Paternal Uncle Prostate Cancer Maternal Grandfather Hypertension Sister [SOCIAL HISTORY] [SOCIAL HISTORY] Social History Tobacco Use Smoking status: Never Smokeless tobacco: Never Tobacco comments: ETS in childhood home, motrher smoker. Vaping Use Vaping status: Never Used Substance Use Topics Alcohol use: No Drug use: No REVIEW OF SYMPTOMS: REVIEW OF SYSTEMS: General: The patient denies fatigue, denies weight loss, denies weight gain, denies feeling hot, and feelings of cold. Eyes: The patient denies glaucoma, denies eye injury/surgery, denies glasses or contacts. Ear/Nose/Throat: The patient denies allergies, denies hayfever, denies ear infections, and denies bloody noses. Cardiovascular: The patient denies chest pain, + heart disease, denies high blood pressure, + high cholesterol, and denies poor circulation. Respiratory: The patient denies tuberculosis, denies pneumonia, denies frequent cough, denies shortness of breath, and denies coughing up blood. Gastrointestinal: The patient denies difficulty swallowing, denies acid reflux, denies ulcers, denies jaundice/hepatitis, denies gallbladder problems, denies vomiting, denies black or tarry stools, denies hemorrhoids, denies bleeding from rectum, denies diverticulitis, denies constipation, denies diarrhea, denies loss of stool control, and denies hernias. Kidney/Bladder: The patient denies kidney stones, denies urine infections, and denies bloody urine. Skin: The patient denies a history of skin cancer, denies bleeding/changing moles, and denies a history of skin rash. Neurologic: The patient denies a history of epilepsy/convulsions, denies headaches, denies head/spinal injuries, and denies stroke/TIA. Psychiatric: The patient denies psychiatric medications, denies depression, and denies voices. Endocrine: The patient denies thyroid disorders, denies diabetes, and denies hormonal problems. Hematologic: The patient + a history of bruising, denies bleeding, and denies anemia. Infections: The patient denies a history of measles and mumps, denies rheumatic fever, and denies sexually transmitted diseases. Musculoskeletal: The patient denies back pain/injury, denies back problems, denies sciatica, denies knee/foot trouble, denies arthritis, or denies gout. PHYSICAL EXAMINATION: General: The patient is 69 year old, male well nourished, well hydrated in no acute distress. The patient is oriented to time, place, and person. VITALS: Blood pressure 136/77, pulse (!) 57, resp. rate 16, weight (!) 146.1 kg (322 lb), SpO2 97%. Body mass index is 43.67 kg/m . HEENT: Normal cephalic, ataumatic, pupils are equally round, sclera are anicteric, mucous membranes are moist, oropharynx is clear. Neck has no masses or asymmetry . Respiratory: Clear to auscultation. Cardiac: Regular rate and rhythm. Abdominal exam: Soft, nontender, with no palpable masses. No hepatosplenomegaly. No palpable hernias. Extremities: no clubbing or cyanosis LABORATORY VALUES: As Noted RADIOLOGIC STUDIES: As Noted Assessment IMPRESSION: screen for colon cancer, history of colon polyps PLAN: I have reviewed my findings with the surgeon. Will plan for lower endoscopy. We discussed the risks and benefits of the planned endoscopy in terms understandable to the patient. I have informed the patient that complications can occur including failure to complete the endoscopy and perforation. Bonny had the opportunity to ask questions concerning the planned endoscopy. Bonny freely consents to surgery. I plan to use Golytely bowel preparation I have explained to the patient the difference between IV conscious sedation and MAC anesthesia - and I have offered either, according to the patient's wishes. I have explained that with IV conscious sedation there is no anesthesia provider available and therefore there is a limitation of the amount of IV medications that can be given and that the patient may wake up in the middle of the procedure and/or experience pain/discomfort during the procedure. Further discussion was done and the patient was given the opportunity to ask questions and all questions were answered. Bonny chooses IV conscious sedation. Bonny was counseled that if there are changes in his/her medical condition, to let the office know if surgery should proceed. If there are changes in patient's medical condition from time of this encounter to the day of the procedure that preclude anesthesia, patient may have procedure cancelled for patient's safety. Diagnoses: (Z86.0100) History of colonic polyps (primary encounter diagnosis) (Z12.11) Screening for colon cancer Consultation requested by Ye Sharma CNP for an opinion regarding colon cancer screening. My final recommendations will be communicated back to the requesting physician by way of shared Medical record or letter to requesting physician via [place] mail. Portions of this documentation were copied and pasted from previous office visit notes in order to provide a cohesive continuity of the history. The note has been reviewed and edited and updated as necessary. Va Real APRN.CNP HISTORY AND PHYSICAL Bonny Redding Jr. : 1955 REFERRING PHYSICIAN: Ye Sharma [address] [facility] [address] CHIEF COMPLAINT: Patient presents with: Consult: Due for colonoscopy, denies GI issues HPI: Bonny is a 69 year old male referred for endoscopy. Bonny notes due for screening colonoscopy-hx of polyps (2019). Bonny denies abdominal pain. Bonny denies diarrhea. Bonny denies constipation. Bonny denies a change in bowel habits. Bonny denies melena. Bonny denies bright red blood per rectum. Bonny denies hemorrhoids. Bonny denies family history of colon issues. Bonny denies heartburn. Bonny denies dysphagia. Bonny denies a history of ulcers/ peptic ulcer disease. [place] follows with [facility] cardiology for hx of HTN, HLD, CAD & s/p AVR. Last OV 04/2024. He denies CP, SOB, dizziness, palpitations, syncope, edema, recent hospitalizations Other medical history is significant for JULIET c/w CPAP & obesity. Bonny has undergone prior endoscopy. Last colonoscopy was 01/[address] Mccoy at [facility]. Sedation: Fentanyl 100 micrograms IV, Midazolam 5 mg IV Impression: - One 8 mm polyp in the ascending colon, removed with a hot snare. Resected and retrieved. - One 10 mm polyp in the ascending colon, removed with a hot snare. Resected and retrieved. Clip was placed. CONVERTED FINAL DIAGNOSIS Ascending colon, polypectomy - Fragments of tubular adenoma. TP/ka 02/06/2020 CURRENT MEDICATIONS Current Outpatient Medications Medication Sig losartan (COZAAR) 100 mg tablet Take 1 tablet by mouth once daily. hydroCHLOROthiazide 12.5 mg capsule Take 1 capsule by mouth once daily. atorvastatin (LIPITOR) 20 mg tablet Take 1 tablet by mouth once daily. amLODIPine (NORVASC) 5 mg tablet Take 1 tablet by mouth once daily. Tadalafil (CIALIS) 20 mg tablet Take 1 tablet by mouth as needed. aspirin 81 mg chewable tablet Take 2 tablets by mouth once daily. peg 3350-Electrolytes (GOLYTELY) 236-22.74-6.74 -5.86 gram suspension Refer to printed prep instructions from your provider. OTC PRODUCT Vitamin D 500mg daily No current facility-administered medications for this visit. ALLERGIES: Patient has no known allergies. PAST MEDICAL HISTORY PAST MEDICAL HISTORY Diagnosis Date Aortic stenosis with bicuspid valve (HCC) 03/01/2015 Benign neoplasm of colon Chronic cough 05/16/2020 No resolution when ACEi stopped. Negative methecholine challenge 09/2020. Coronary artery disease Essential hypertension, benign 15 yr Hyperlipidemia LDL goal <130 Morbid (severe) obesity due to excess calories (HCC) Obesity, unspecified Other and unspecified hyperlipidemia 15 yrs Peripheral neuropathy 11/29/2014 Personal history of colonic polyps Primary osteoarthritis, left hand Snoring Unspecified sleep apnea 2007 uses CPAP Vitamin D deficiency 2017 PAST SURGICAL HISTORY PAST SURGICAL HISTORY Procedure Laterality Date CATARACT EXTRACTION HX 2013 COLONOSCOPY FLX DX W/COLLJ SPEC WHEN PFRMD 08/31/2007 Colonoscopy COLONOSCOPY FLX DX W/COLLJ SPEC WHEN PFRMD N/A 10/12/2016 COLONOSCOPY W/BIOPSY SINGLE/MULTIPLE 07/20/2011 EXC LESION TDN SHTH/JT CAPSL HAND/FNGR 02/24/2013 Excision ganglion cyst left middle finger HEART SURGERY HX 2018 Aortic valve surgery LAPAROSCOPY SURG RPR INITIAL INGUINAL HERNIA 05/17/2008 RIGHT PAST SURGICAL HISTORY OF tonsils and adenoids removed PAST SURGICAL HISTORY OF hernia PAST SURGICAL HISTORY OF 04/18/2008 right meniscus repair PAST SURGICAL HISTORY OF 07/2010 right foot surgery PAST SURGICAL HISTORY OF Right 07/28/2022 Right carpometacarpal arthroplasty with flexor carpi radialis interposition, first dorsal compartment tenosynovectomy right partial trapezodi excision REPAIR ROTATOR CUFF,ACUTE Right 05/25/2024 [facility] RPR UMBILICAL HRNA 5 YRS/> REDUCIBLE 05/17/2008 SEPTOPLASTY/SUBMUCOUS RESECJ W/WO CARTILAGE GRF 2004 Septoplasty TOTAL KNEE REPLACEMENT Left 11/13/2022 Dr. Jackson Mera TOTAL KNEE REPLACEMENT Right 02/19/2023 FAMILY HISTORY FAMILY HISTORY Problem Relation Age of Onset Alzheimer's Disease Mother age 76-COPD COPD Mother other (Hypertension, Hyperlipidemia) Mother Coronary Artery Disease Father 60 valve replacement Prostate Cancer Father other (PARKINSON) Father Prostate Cancer Paternal Uncle Prostate Cancer Maternal Grandfather Hypertension Sister [SOCIAL HISTORY] [SOCIAL HISTORY] Social History Tobacco Use Smoking status: Never Smokeless tobacco: Never Tobacco comments: ETS in childhood home, motrher smoker. Vaping Use Vaping status: Never Used Substance Use Topics Alcohol use: No Drug use: No REVIEW OF SYMPTOMS: REVIEW OF SYSTEMS: General: The patient denies fatigue, denies weight loss, denies weight gain, denies feeling hot, and feelings of cold. Eyes: The patient denies glaucoma, denies eye injury/surgery, denies glasses or contacts. Ear/Nose/Throat: The patient denies allergies, denies hayfever, denies ear infections, and denies bloody noses. Cardiovascular: The patient denies chest pain, + heart disease, denies high blood pressure, + high cholesterol, and denies poor circulation. Respiratory: The patient denies tuberculosis, denies pneumonia, denies frequent cough, denies shortness of breath, and denies coughing up blood. Gastrointestinal: The patient denies difficulty swallowing, denies acid reflux, denies ulcers, denies jaundice/hepatitis, denies gallbladder problems, denies vomiting, denies black or tarry stools, denies hemorrhoids, denies bleeding from rectum, denies diverticulitis, denies constipation, denies diarrhea, denies loss of stool control, and denies hernias. Kidney/Bladder: The patient denies kidney stones, denies urine infections, and denies bloody urine. Skin: The patient denies a history of skin cancer, denies bleeding/changing moles, and denies a history of skin rash. Neurologic: The patient denies a history of epilepsy/convulsions, denies headaches, denies head/spinal injuries, and denies stroke/TIA. Psychiatric: The patient denies psychiatric medications, denies depression, and denies voices. Endocrine: The patient denies thyroid disorders, denies diabetes, and denies hormonal problems. Hematologic: The patient + a history of bruising, denies bleeding, and denies anemia. Infections: The patient denies a history of measles and mumps, denies rheumatic fever, and denies sexually transmitted diseases. Musculoskeletal: The patient denies back pain/injury, denies back problems, denies sciatica, denies knee/foot trouble, denies arthritis, or denies gout. PHYSICAL EXAMINATION: General: The patient is 69 year old, male well nourished, well hydrated in no acute distress. The patient is oriented to time, place, and person. VITALS: Blood pressure 136/77, pulse (!) 57, resp. rate 16, weight (!) 146.1 kg (322 lb), SpO2 97%. Body mass index is 43.67 kg/m . HEENT: Normal cephalic, ataumatic, pupils are equally round, sclera are anicteric, mucous membranes are moist, oropharynx is clear. Neck has no masses or asymmetry . Respiratory: Clear to auscultation. Cardiac: Regular rate and rhythm. Abdominal exam: Soft, nontender, with no palpable masses. No hepatosplenomegaly. No palpable hernias. Extremities: no clubbing or cyanosis LABORATORY VALUES: As Noted RADIOLOGIC STUDIES: As Noted Assessment IMPRESSION: screen for colon cancer, history of colon polyps PLAN: I have reviewed my findings with the surgeon. Will plan for lower endoscopy. We discussed the risks and benefits of the planned endoscopy in terms understandable to the patient. I have informed the patient that complications can occur including failure to complete the endoscopy and perforation. Bonny had the opportunity to ask questions concerning the planned endoscopy. Bonny freely consents to surgery. I plan to use Golytely bowel preparation I have explained to the patient the difference between IV conscious sedation and MAC anesthesia - and I have offered either, according to the patient's wishes. I have explained that with IV conscious sedation there is no anesthesia provider available and therefore there is a limitation of the amount of IV medications that can be given and that the patient may wake up in the middle of the procedure and/or experience pain/discomfort during the procedure. Further discussion was done and the patient was given the opportunity to ask questions and all questions were answered. Bonny chooses IV conscious sedation. Bonny was counseled that if there are changes in his/her medical condition, to let the office know if surgery should proceed. If there are changes in patient's medical condition from time of this encounter to the day of the procedure that preclude anesthesia, patient may have procedure cancelled for patient's safety. Diagnoses: (Z86.0100) History of colonic polyps (primary encounter diagnosis) (Z12.11) Screening for colon cancer Consultation requested by Ye Sharma CNP for an opinion regarding colon cancer screening. My final recommendations will be communicated back to the requesting physician by way of shared Medical record or letter to requesting physician via [place] mail. Portions of this documentation were copied and pasted from previous office visit notes in order to provide a cohesive continuity of the history. The note has been reviewed and edited and updated as necessary. Va Real APRN.BOARD WRITER documented in this encounter [facility] [place] 02-28-2025 History of Present illness Narrative HISTORY AND PHYSICAL Bonny Redding Jr. : 1955 REFERRING PHYSICIAN: Ye Sharma [address] [facility] [address] CHIEF COMPLAINT: Patient presents with: Consult: Due for colonoscopy, denies GI issues HPI: Bonny is a 69 year old male referred for endoscopy. Bonny notes due for screening colonoscopy-hx of polyps (2019). Bonny denies abdominal pain. Bonny denies diarrhea. Bonny denies constipation. Bonny denies a change in bowel habits. Bonny denies melena. Bonny denies bright red blood per rectum. Bonny denies hemorrhoids. Bonny denies family history of colon issues. Bonny denies heartburn. Bonny denies dysphagia. Bonny denies a history of ulcers/ peptic ulcer disease. [place] follows with [facility] cardiology for hx of HTN, HLD, CAD & s/p AVR. Last OV 04/2024. He denies CP, SOB, dizziness, palpitations, syncope, edema, recent hospitalizations Other medical history is significant for JULIET c/w CPAP & obesity. Bonny has undergone prior endoscopy. Last colonoscopy was 01/[address] Mccoy at [facility]. Sedation: Fentanyl 100 micrograms IV, Midazolam 5 mg IV Impression: - One 8 mm polyp in the ascending colon, removed with a hot snare. Resected and retrieved. - One 10 mm polyp in the ascending colon, removed with a hot snare. Resected and retrieved. Clip was placed. CONVERTED FINAL DIAGNOSIS Ascending colon, polypectomy - Fragments of tubular adenoma. TP/maksim 02/06/2020 Current Outpatient Medications Medication Sig losartan (COZAAR) 100 mg tablet Take 1 tablet by mouth once daily. hydroCHLOROthiazide 12.5 mg capsule Take 1 capsule by mouth once daily. atorvastatin (LIPITOR) 20 mg tablet Take 1 tablet by mouth once daily. amLODIPine (NORVASC) 5 mg tablet Take 1 tablet by mouth once daily. Tadalafil (CIALIS) 20 mg tablet Take 1 tablet by mouth as needed. aspirin 81 mg chewable tablet Take 2 tablets by mouth once daily. peg 3350-Electrolytes (GOLYTELY) 236-22.74-6.74 -5.86 gram suspension Refer to printed prep instructions from your provider. OTC PRODUCT Vitamin D 500mg daily No current facility-administered medications for this visit. ALLERGIES: Patient has no known allergies. PAST MEDICAL HISTORY Diagnosis Date Aortic stenosis with bicuspid valve (HCC) 03/01/2015 Benign neoplasm of colon Chronic cough 05/16/2020 No resolution when ACEi stopped. Negative methecholine challenge 09/2020. Coronary artery disease Essential hypertension, benign 15 yr Hyperlipidemia LDL goal <130 Morbid (severe) obesity due to excess calories (HCC) Obesity, unspecified Other and unspecified hyperlipidemia 15 yrs Peripheral neuropathy 11/29/2014 Personal history of colonic polyps Primary osteoarthritis, left hand Snoring Unspecified sleep apnea 2007 uses CPAP Vitamin D deficiency 2017 PAST SURGICAL HISTORY Procedure Laterality Date CATARACT EXTRACTION HX 2014 COLONOSCOPY FLX DX W/COLLJ SPEC WHEN PFRMD 08/31/2007 Colonoscopy COLONOSCOPY FLX DX W/COLLJ SPEC WHEN PFRMD N/A 10/12/2016 COLONOSCOPY W/BIOPSY SINGLE/MULTIPLE 07/20/2011 EXC LESION TDN SHTH/JT CAPSL HAND/FNGR 02/24/2013 Excision ganglion cyst left middle finger HEART SURGERY HX 2018 Aortic valve surgery LAPAROSCOPY SURG RPR INITIAL INGUINAL HERNIA 05/17/2008 RIGHT PAST SURGICAL HISTORY OF tonsils and adenoids removed PAST SURGICAL HISTORY OF hernia PAST SURGICAL HISTORY OF 04/18/2008 right meniscus repair PAST SURGICAL HISTORY OF 07/2010 right foot surgery PAST SURGICAL HISTORY OF Right 07/28/2022 Right carpometacarpal arthroplasty with flexor carpi radialis interposition, first dorsal compartment tenosynovectomy right partial trapezodi excision REPAIR ROTATOR CUFF,ACUTE Right 05/25/2024 [facility] RPR UMBILICAL HRNA 5 YRS/> REDUCIBLE 05/17/2008 SEPTOPLASTY/SUBMUCOUS RESECJ W/WO CARTILAGE GRF 2004 Septoplasty TOTAL KNEE REPLACEMENT Left 11/13/2022 Dr. Jackson Mera TOTAL KNEE REPLACEMENT Right 02/19/2023 FAMILY HISTORY Problem Relation Age of Onset Alzheimer's Disease Mother age 76-COPD COPD Mother other (Hypertension, Hyperlipidemia) Mother Coronary Artery Disease Father 60 valve replacement Prostate Cancer Father other (PARKINSON) Father Prostate Cancer Paternal Uncle Prostate Cancer Maternal Grandfather Hypertension Sister SOCIAL HISTORY[1] REVIEW OF SYMPTOMS: REVIEW OF SYSTEMS: General: The patient denies fatigue, denies weight loss, denies weight gain, denies feeling hot, and feelings of cold. Eyes: The patient denies glaucoma, denies eye injury/surgery, denies glasses or contacts. Ear/Nose/Throat: The patient denies allergies, denies hayfever, denies ear infections, and denies bloody noses. Cardiovascular: The patient denies chest pain, + heart disease, denies high blood pressure, + high cholesterol, and denies poor circulation. Respiratory: The patient denies tuberculosis, denies pneumonia, denies frequent cough, denies shortness of breath, and denies coughing up blood. Gastrointestinal: The patient denies difficulty swallowing, denies acid reflux, denies ulcers, denies jaundice/hepatitis, denies gallbladder problems, denies vomiting, denies black or tarry stools, denies hemorrhoids, denies bleeding from rectum, denies diverticulitis, denies constipation, denies diarrhea, denies loss of stool control, and denies hernias. Kidney/Bladder: The patient denies kidney stones, denies urine infections, and denies bloody urine. Skin: The patient denies a history of skin cancer, denies bleeding/changing moles, and denies a history of skin rash. Neurologic: The patient denies a history of epilepsy/convulsions, denies headaches, denies head/spinal injuries, and denies stroke/TIA. Psychiatric: The patient denies psychiatric medications, denies depression, and denies voices. Endocrine: The patient denies thyroid disorders, denies diabetes, and denies hormonal problems. Hematologic: The patient + a history of bruising, denies bleeding, and denies anemia. Infections: The patient denies a history of measles and mumps, denies rheumatic fever, and denies sexually transmitted diseases. Musculoskeletal: The patient denies back pain/injury, denies back problems, denies sciatica, denies knee/foot trouble, denies arthritis, or denies gout. PHYSICAL EXAMINATION: General: The patient is 69 year old, male well nourished, well hydrated in no acute distress. The patient is oriented to time, place, and person. VITALS: Blood pressure 136/77, pulse (!) 57, resp. rate 16, weight (!) 146.1 kg (322 lb), SpO2 97%. Body mass index is 43.67 kg/m . HEENT: Normal cephalic, ataumatic, pupils are equally round, sclera are anicteric, mucous membranes are moist, oropharynx is clear. Neck has no masses or asymmetry . Respiratory: Clear to auscultation. Cardiac: Regular rate and rhythm. Abdominal exam: Soft, nontender, with no palpable masses. No hepatosplenomegaly. No palpable hernias. Extremities: no clubbing or cyanosis LABORATORY VALUES: As Noted RADIOLOGIC STUDIES: As Noted Assessment IMPRESSION: screen for colon cancer, history of colon polyps PLAN: I have reviewed my findings with the surgeon. Will plan for lower endoscopy. We discussed the risks and benefits of the planned endoscopy in terms understandable to the patient. I have informed the patient that complications can occur including failure to complete the endoscopy and perforation. Bonny had the opportunity to ask questions concerning the planned endoscopy. Bonny freely consents to surgery. I plan to use Golytely bowel preparation I have explained to the patient the difference between IV conscious sedation and MAC anesthesia - and I have offered either, according to the patient's wishes. I have explained that with IV conscious sedation there is no anesthesia provider available and therefore there is a limitation of the amount of IV medications that can be given and that the patient may wake up in the middle of the procedure and/or experience pain/discomfort during the procedure. Further discussion was done and the patient was given the opportunity to ask questions and all questions were answered. Bonny chooses IV conscious sedation. Bonny was counseled that if there are changes in his/her medical condition, to let the office know if surgery should proceed. If there are changes in patient's medical condition from time of this encounter to the day of the procedure that preclude anesthesia, patient may have procedure cancelled for patient's safety. Diagnoses: (Z86.0100) History of colonic polyps (primary encounter diagnosis) (Z12.11) Screening for colon cancer Consultation requested by Ye Sharma CNP for an opinion regarding colon cancer screening. My final recommendations will be communicated back to the requesting physician by way of shared Medical record or letter to requesting physician via US mail. Portions of this documentation were copied and pasted from previous office visit notes in order to provide a cohesive continuity of the history. The note has been reviewed and edited and updated as necessary. Va Real APRN.DILIP [1] Social History Tobacco Use Smoking status: Never Smokeless tobacco: Never Tobacco comments: ETS in childhood home, motrher smoker. Vaping Use Vaping status: Never Used Substance Use Topics Alcohol use: No Drug use: No documented in this encounter [facility] [place] 02-28-2025 Note HNO ID: [id number] Author: VA REAL APRN.DILIP Service: ? Author Type: Nurse Practitioner Type: Progress Notes Filed: 02/28/2025 15:32 Note Text: HISTORY AND PHYSICAL Bonny Redding : 1955 REFERRING PHYSICIAN: Ye Sharma [address] [facility] [address] CHIEF COMPLAINT: Patient presents with: Consult: Due for colonoscopy, denies GI issues HPI: Bonny is a 69 year old male referred for endoscopy. Bonny notes due for screening colonoscopy-hx of polyps (2019). Bonny denies abdominal pain. Bonny denies diarrhea. Bonny denies constipation. Bonny denies a change in bowel habits. Bonny denies melena. Bonny denies bright red blood per rectum. Bonny denies hemorrhoids. Bonny denies family history of colon issues. Bonny denies heartburn. Bonny denies dysphagia. Bonny denies a history of ulcers/ peptic ulcer disease. Orlando follows with [facility] cardiology for hx of HTN, HLD, CAD AND s/p AVR. Last OV 04/2024. He denies CP, SOB, dizziness, palpitations, syncope, edema, recent hospitalizations Other medical history is significant for JULIET c/w CPAP AND obesity. Bonny has undergone prior endoscopy. Last colonoscopy was 01/[address] Mccoy at [facility]. Sedation: Fentanyl 100 micrograms IV, Midazolam 5 mg IV Impression: - One 8 mm polyp in the ascending colon, removed with a hot snare. Resected and retrieved. - One 10 mm polyp in the ascending colon, removed with a hot snare. Resected and retrieved. Clip was placed. CONVERTED FINAL DIAGNOSIS Ascending colon, polypectomy - Fragments of tubular adenoma. TP/ka 02/06/2020 Current Outpatient Medications Medication Sig losartan (COZAAR) 100 mg tablet Take 1 tablet by mouth once daily. hydroCHLOROthiazide 12.5 mg capsule Take 1 capsule by mouth once daily. atorvastatin (LIPITOR) 20 mg tablet Take 1 tablet by mouth once daily. amLODIPine (NORVASC) 5 mg tablet Take 1 tablet by mouth once daily. Tadalafil (CIALIS) 20 mg tablet Take 1 tablet by mouth as needed. aspirin 81 mg chewable tablet Take 2 tablets by mouth once daily. peg 3350-Electrolytes (GOLYTELY) 236-22.74-6.74 -5.86 gram suspension Refer to printed prep instructions from your provider. OTC PRODUCT Vitamin D 500mg daily No current facility-administered medications for this visit. ALLERGIES: Patient has no known allergies. PAST MEDICAL HISTORY Diagnosis Date Aortic stenosis with bicuspid valve (HCC) 03/01/2015 Benign neoplasm of colon Chronic cough 05/16/2020 No resolution when ACEi stopped. Negative methecholine challenge 09/2020. Coronary artery disease Essential hypertension, benign 15 yr Hyperlipidemia LDL goal <130 Morbid (severe) obesity due to excess calories (HCC) Obesity, unspecified Other and unspecified hyperlipidemia 15 yrs Peripheral neuropathy 11/29/2014 Personal history of colonic polyps Primary osteoarthritis, left hand Snoring Unspecified sleep apnea 2007 uses CPAP Vitamin D deficiency 2018 PAST SURGICAL HISTORY Procedure Laterality Date CATARACT EXTRACTION HX 2014 COLONOSCOPY FLX DX W/COLLJ SPEC WHEN PFRMD 08/31/2007 Colonoscopy COLONOSCOPY FLX DX W/COLLJ SPEC WHEN PFRMD N/A 10/12/2016 COLONOSCOPY W/BIOPSY SINGLE/MULTIPLE 07/20/2011 EXC LESION TDN SHTH/JT CAPSL HAND/FNGR 02/24/2013 Excision ganglion cyst left middle finger HEART SURGERY HX 2018 Aortic valve surgery LAPAROSCOPY SURG RPR INITIAL INGUINAL HERNIA 05/17/2008 RIGHT PAST SURGICAL HISTORY OF tonsils and adenoids removed PAST SURGICAL HISTORY OF hernia PAST SURGICAL HISTORY OF 04/18/2008 right meniscus repair PAST SURGICAL HISTORY OF 07/2010 right foot surgery PAST SURGICAL HISTORY OF Right 07/28/2022 Right carpometacarpal arthroplasty with flexor carpi radialis interposition, first dorsal compartment tenosynovectomy right partial trapezodi excision REPAIR ROTATOR CUFF,ACUTE Right 05/25/2024 [facility] RPR UMBILICAL HRNA 5 YRS/> REDUCIBLE 05/17/2008 SEPTOPLASTY/SUBMUCOUS RESECJ W/WO CARTILAGE GRF 2004 Septoplasty TOTAL KNEE REPLACEMENT Left 11/13/2022 Dr. Jackson Mera TOTAL KNEE REPLACEMENT Right 02/19/2023 FAMILY HISTORY Problem Relation Age of Onset Alzheimer's Disease Mother age 76-COPD COPD Mother other (Hypertension, Hyperlipidemia) Mother Coronary Artery Disease Father 60 valve replacement Prostate Cancer Father other (PARKINSON) Father Prostate Cancer Paternal Uncle Prostate Cancer Maternal Grandfather Hypertension Sister SOCIAL HISTORY[1] REVIEW OF SYMPTOMS: REVIEW OF SYSTEMS: General: The patient denies fatigue, denies weight loss, denies weight gain, denies feeling hot, and feelings of cold. Eyes: The patient denies glaucoma, denies eye injury/surgery, denies glasses or contacts. Ear/Nose/Throat: The patient denies allergies, denies hayfever, denies ear infections, and denies bloody noses. Cardiovascular: The patient denies chest pain, + he (more content not included)... [facility] 02-23-2025 Instructions eY Sharma APRN.[facility] - 02/23/2025 10:16 AM EDT We discussed your follow-up care and recent lab results: - Your PSA level is 2.53, which is within the normal range. We do not need to recheck this at your next visit unless you request it. - Your A1c is 6.0, which is slightly elevated and indicates prediabetes. To help manage this: - Focus on reducing carbohydrate intake, particularly from bread, rice, pasta, and processed foods. - Avoid sugary beverages like regular soda, sweet tea, and lemonade. Diet sodas are acceptable in moderation. - Continue your efforts to control portion sizes and avoid going back for seconds. - Recheck your A1c in 6 months to monitor progress. - If your A1c continues to rise despite these changes, we can discuss starting Metformin, a medication that helps manage blood sugar levels and may assist with weight control. - Your bilirubin level is slightly elevated at 1.4, which is consistent with past results. This may be related to dehydration or a benign condition like Gilbert s syndrome. Continue drinking at least 64 ounces of water daily, as you have been doing. No further action is needed at this time. - Your cholesterol levels are good, with an LDL of 102, and your blood pressure is well-controlled. No changes to your current regimen are needed. We discussed your right ear pain: - I examined your ear, and there are no significant findings. Please monitor your symptoms and let me know if the pain worsens or persists. We discussed your leg swelling: - Your compression socks are helping significantly, with noticeable improvement in the size of your legs. Continue wearing the 30 mmHg compression socks daily for optimal results. We discussed your upcoming appointments: - You have an appointment with Dr. Borrego (cardiology) on May 24. Please follow up with them as scheduled. We discussed your next steps: - I have ordered labs for 6 months from now. Please complete these before your next visit so we can review the results together. Let me know if you have any new concerns or questions before your next visit. documented in this encounter [facility] [place] 02-23-2025 History of Present illness Narrative Chief Complaint Patient presents with: 6 Month Exam Ear Infection: Right HPI Bonny Redding Jr. is a 69 year old male who presents here today for above reason. Orlando Redding is a 69-year-old male with a history of prediabetes, hyperbilirubinemia, and lower extremity edema, presenting for a 6-month follow-up. Orlando reports right otalgia that was not present during his last visit approximately one month ago. He also needs a consult to general surgery to discuss colon cancer screening. Recent lab results show an HbA1c of 6.0%, an increase from previous values of 5.7-5.8% over the past few years. In response, Orlando has been attempting to control his weight by avoiding second servings. He consumes diet beverages and has reduced his intake of processed breads, switching from cereal with milk to two scrambled eggs for breakfast. He denies consuming regular sugary drinks or milk. Orlando also reports a history of hyperbilirubinemia, with a recent value of 1.4 mg/dL, down from a previous value of 1.8 mg/dL three years ago. He has been consistently drinking 64 ounces of water daily, sometimes more, but notes that his fluid intake was lower prior to his last visit. He also reports significant improvement in lower extremity edema with the use of compression socks, noting a reduction in leg circumference from 19.25 inches to approximately 18 inches. He uses two different types of compression socks, one providing up to 20 mmHg and the other up to 30 mmHg of pressure, with the latter being more effective. He has an upcoming appointment with Dr. Borrego at the [facility] [place] on May 24. Having occasional right ear pain. None now. Would like me to look at it. Wears hearing aides. Occasionally will use debrox. Past medical history, appointments, medications, allergies reviewed. EXAM: BP 120/72 Pulse 64 Resp 20 Wt (!) 144.6 kg (318 lb 12.8 oz) BMI 43.24 kg/m General Appearance: Well appearing, alert, in no acute distress, well-hydrated, well nourished.. Ears: Positive findings: cerumen on right, amount Small. Lungs: Lungs clear to auscultation. No wheezing, rhonchi, rales.. Heart: RRR without murmur, gallop, or rubs. No ectopy. Extremities: Pulses: 2+, Edema: +1. Latest Ref Rng 02/19/2025 Protein, Total 6.3 - 8.0 g/dL 6.7 Albumin 3.9 - 4.9 g/dL 4.3 Calcium 8.5 - 10.2 mg/dL 9.8 Bilirubin, Total 0.2 - 1.3 mg/dL 1.4 (H) Alkaline Phosphatase 38 - 113 U/L 74 AST 14 - 40 U/L 26 ALT 10 - 54 U/L 32 Glucose 74 - 99 mg/dL 126 (H) BUN 9 - 24 mg/dL 20 Creatinine 0.73 - 1.22 mg/dL 1.14 Sodium 136 - 144 mmol/L 141 Potassium 3.7 - 5.1 mmol/L 4.3 Chloride 98 - 107 mmol/L 105 CO2 22 - 30 mmol/L 22 Anion Gap 8 - 15 mmol/L 14 eGFR >=60 mL/min/1.73m 70 Cholesterol, Total <200 mg/dL 165 Triglyceride <150 mg/dL 77 HDL Cholesterol >39 mg/dL 48 LDL Cholesterol, Calculated <100 mg/dL 102 (H) Non HDL Cholesterol <130 mg/dL 117 VLDL Cholesterol <30 mg/dL 13 TC:HDL Ratio <5.10 3.44 LDL:HDL Ratio <2.54 2.13 Fasting Time hrs 12 Hemoglobin A1C 4.3 - 5.6 % 6.0 (H) Estimated Average Glucose mg/dL 126 PSA Screening <2.60 ng/mL 0.53 Assessment and Plan 1. Essential (primary) hypertension (I10) Blood pressure is well-controlled. Continue current antihypertensive regimen. 2. Bilateral leg edema (R60.0) Significant improvement noted with compression stockings (20-30 mmHg). Right leg circumference reduced from 19.25 inches to approximately 18 inches; similar improvement in left leg. Continue wearing compression stockings daily. 3. Primary osteoarthritis, left hand (M19.042) 4. Screening for depression (Z13.31) 5. Morbid (severe) obesity due to excess calories (HCC) (E66.01) 6. Encounter for screening examination for other mental health and behavioral disorders (Z13.39) 7. Screening for colon cancer (Z12.11) Consultation scheduled with Child Surgery for colon cancer screening. 8. Impaired fasting glucose (R73.01) Hemoglobin A1c increased to 6.0%, previously in the upper 5s (5.7-5.8) for several years. - Educated on dietary modifications to reduce carbohydrate intake, including avoiding large portions of rice, pasta, and bread. - Discussed potential future use of Metformin if A1c continues to rise. - Recheck A1c in 6 months. 9. Hyperlipidemia LDL goal <130 (E78.5) LDL cholesterol is 102 mg/dL, consistent with previous values and slightly improved. Continue current lipid management. 10. Right ear pain (H92.01) Mild otalgia reported; previously evaluated one month ago with no significant findings. Re-evaluated ear; no acute issues noted. Monitor for any changes or worsening symptoms. Small amount of wax, can use debrox more consistent at home. Ye Sharma APRN.BOARD WRITER RTO in 6 months, sooner if needed. This note was partly generated using [employer] voice recognition dictation and may contain some misspelled or inaccurate words missed on review. Recording using [employer] software for draft documentation of the visit was discussed with the patient/authorized phone representative; all questions welcomed and answered. Patient/authorized phone representative agreed to proceed documented in this encounter [facility] [place] 02-23-2025 Note HNO ID: [id number] Author: YE SHARMA APRN.DILIP Service: ? Author Type: Nurse Practitioner Type: Progress Notes Filed: 02/23/2025 10:23 Note Text: Chief Complaint Patient presents with: 6 Month Exam Ear Infection: Right HPI Bonny Redding Jr. is a 69 year old male who presents here today for above reason. Orlando Redding is a 69-year-old male with a history of prediabetes, hyperbilirubinemia, and lower extremity edema, presenting for a 6-month follow-up. Orlando reports right otalgia that was not present during his last visit approximately one month ago. He also needs a consult to general surgery to discuss colon cancer screening. Recent lab results show an HbA1c of 6.0%, an increase from previous values of 5.7-5.8% over the past few years. In response, Orlando has been attempting to control his weight by avoiding second servings. He consumes diet beverages and has reduced his intake of processed breads, switching from cereal with milk to two scrambled eggs for breakfast. He denies consuming regular sugary drinks or milk. Orlando also reports a history of hyperbilirubinemia, with a recent value of 1.4 mg/dL, down from a previous value of 1.8 mg/dL three years ago. He has been consistently drinking 64 ounces of water daily, sometimes more, but notes that his fluid intake was lower prior to his last visit. He also reports significant improvement in lower extremity edema with the use of compression socks, noting a reduction in leg circumference from 19.25 inches to approximately 18 inches. He uses two different types of compression socks, one providing up to 20 mmHg and the other up to 30 mmHg of pressure, with the latter being more effective. He has an upcoming appointment with Dr. Borrego at the [facility] [place] on May 24. Having occasional right ear pain. None now. Would like me to look at it. Wears hearing aides. Occasionally will use debrox. Past medical history, appointments, medications, allergies reviewed. EXAM: BP 120/72 Pulse 64 Resp 20 Wt (!) 144.6 kg (318 lb 12.8 oz) BMI 43.24 kg/m? General Appearance: Well appearing, alert, in no acute distress, well-hydrated, well nourished.. Ears: Positive findings: cerumen on right, amount Small. Lungs: Lungs clear to auscultation. No wheezing, rhonchi, rales.. Heart: RRR without murmur, gallop, or rubs. No ectopy. Extremities: Pulses: 2+, Edema: +1. Latest Ref Rng 02/19/2025 Protein, Total 6.3 - 8.0 g/dL 6.7 Albumin 3.9 - 4.9 g/dL 4.3 Calcium 8.5 - 10.2 mg/dL 9.8 Bilirubin, Total 0.2 - 1.3 mg/dL 1.4 (H) Alkaline Phosphatase 38 - 113 U/L 74 AST 14 - 40 U/L 26 ALT 10 - 54 U/L 32 Glucose 74 - 99 mg/dL 126 (H) BUN 9 - 24 mg/dL 20 Creatinine 0.73 - 1.22 mg/dL 1.14 Sodium 136 - 144 mmol/L 141 Potassium 3.7 - 5.1 mmol/L 4.3 Chloride 98 - 107 mmol/L 105 CO2 22 - 30 mmol/L 22 Anion Gap 8 - 15 mmol/L 14 eGFR >=60 mL/min/1.73m? 70 Cholesterol, Total <200 mg/dL 165 Triglyceride <150 mg/dL 77 HDL Cholesterol >39 mg/dL 48 LDL Cholesterol, Calculated <100 mg/dL 102 (H) Non HDL Cholesterol <130 mg/dL 117 VLDL Cholesterol <30 mg/dL 13 TC:HDL Ratio <5.10 3.44 LDL:HDL Ratio <2.54 2.13 Fasting Time hrs 12 Hemoglobin A1C 4.3 - 5.6 % 6.0 (H) Estimated Average Glucose mg/dL 126 PSA Screening <2.60 ng/mL 0.53 Assessment and Plan 1. Essential (primary) hypertension (I10) Blood pressure is well-controlled. Continue current antihypertensive regimen. 2. Bilateral leg edema (R60.0) Significant improvement noted with compression stockings (20-30 mmHg). Right leg circumference reduced from 19.25 inches to approximately 18 inches; similar improvement in left leg. Continue wearing compression stockings daily. 3. Primary osteoarthritis, left hand (M19.042) 4. Screening for depression (Z13.31) 5. Morbid (severe) obesity due to excess calories (HCC) (E66.01) 6. Encounter for screening examination for other mental health and behavioral disorders (Z13.39) 7. Screening for colon cancer (Z12.11) Consultation scheduled with Child Surgery for colon cancer screening. 8. Impaired fasting glucose (R73.01) Hemoglobin A1c increased to 6.0%, previously in the upper 5s (5.7-5.8) for several years. - Educated on dietary modifications to reduce carbohydrate intake, including avoiding large portions of rice, pasta, and bread. - Discussed potential future use of Metformin if A1c continues to rise. - Recheck A1c in 6 months. 9. Hyperlipidemia LDL goal <130 (E78.5) LDL cholesterol is 102 mg/dL, consistent with previous values and slightly improved. Continue current lipid management. 10. Right ear pain (H92.01) Mild otalgia reported; previously evaluated one month ago with no significant findings. Re-evaluated ear; no acute issues noted. Monitor for any changes or worsening symptoms. Small amount of wax, can use debrox more consistent at home. Ye Sharma APRN.BOARD WRITER RTO in 6 months, sooner if n (more content not included)... [facility] 02-21-2025 Note HNO ID: [id number] Author: CARLA OROURKE MA Service: ? Author Type: [employer] Worker Type: Progress Notes Filed: 02/21/2025 10:45 Note Text: POPULATION HEALTH NAVIGATION OUTREACH Action/FYI updated appointment note [facility] CLOS[facility] Topic Due (Y or N) Comments Medicare Wellness y PCP Follow up Colorectal Cancer Screening y Controlling Blood Pressure A1C HCC y Flu Vaccine Care Everywhere Reviewed MyChart Activation Updated Appointment Note Reason for Outreach Care Gap/HCC or Scheduling Wellness Visits Care Gaps due: Medicare Annual Wellness Visit Colorectal Cancer Screening Patient Contacted: Unable or unnecessary to reach patient: HCC related Patient already scheduled Updated appointment notes Navigation Signature: Carla Orourke MA February 21, 2025 10:43 AM [facility] 02-21-2025 History of Present illness Narrative POPULATION HEALTH NAVIGATION OUTREACH Action/FYI updated appointment note [facility] CLOSUYE Topic Due (Y or N) Comments Medicare Wellness y PCP Follow up Colorectal Cancer Screening y Controlling Blood Pressure A1C HCC y Flu Vaccine Care Everywhere Reviewed MyChart Activation Updated Appointment Note Reason for Outreach Care Gap/HCC or Scheduling Wellness Visits Care Gaps due: Medicare Annual Wellness Visit Colorectal Cancer Screening Patient Contacted: Unable or unnecessary to reach patient: HCC related Patient already scheduled Updated appointment notes Navigation Signature: Carla Orourke MA February 21, 2025 10:43 AM documented in this encounter [facility] [place] 02-21-2025 Note Patient Outreach (NE TNAV) BONNY REDDING JR. ([id number]) 1955 M NFR Date Time Provider Department 02/21/25 CARLA OROURKE NETNAV During your visit today, we recorded the following information about you: Carla Orourke MA 02/21/2025 10:45 AM Signed POPULATION HEALTH NAVIGATION OUTREACH Action/FYI updated appointment note [facility] CLOSUYE Topic Due (Y or N) Comments Medicare Wellness y PCP Follow up Colorectal Cancer Screening y Controlling Blood Pressure A1C HCC y Flu Vaccine Care Everywhere Reviewed MyChart Activation Updated Appointment Note Reason for Outreach Care Gap/HCC or Scheduling Wellness Visits Care Gaps due: Medicare Annual Wellness Visit Colorectal Cancer Screening Patient Contacted: Unable or unnecessary to reach patient: HCC related Patient already scheduled Updated appointment notes Navigation Signature: Carla Orourke MA February 21, 2025 10:43 AM Allergies As of Date: 02/21/2025 (No Known Allergies) Date Reviewed: 02/06/2025 Reviewed by: Emily Holland MA - Fully Assessed Reason for Visit: Population Health Navigation Outreach [3910] Cmt: WALLY SERGIOLAVELLMargy VENEGAS SUMANA Prescriptions as of 02/21/2025 - losartan (COZAAR) 100 mg tablet Take 1 tablet by mouth once daily. - hydroCHLOROthiazide 12.5 mg capsule Take 1 capsule by mouth once daily. - atorvastatin (LIPITOR) 20 mg tablet Take 1 tablet by mouth once daily. - amLODIPine (NORVASC) 5 mg tablet Take 1 tablet by mouth once daily. - Tadalafil (CIALIS) 20 mg tablet Take 1 tablet by mouth as needed. - OTC PRODUCT Vitamin D 500mg daily - aspirin 81 mg chewable tablet Take 2 tablets by mouth once daily. Problem List As Of Date 02/21/2025 Noted Resolved Essential hypertension, benign [I10] Obesity, Class III, BMI 40-49.9 (morbid obesity* Sleep apnea [G47.30] Benign neoplasm of colon [D12.6] 08/31/2007 11/29/2014 Tear of medial cartilage or meniscus of knee, c*03/29/2008 11/29/2014 INGUINAL HERNIA, UNILATERAL W/O GANGRENE/OBSTRU*04/30/2008 11/29/2014 SURGERY FOLLOWUP NOS [Z09] 05/02/2008 09/10/2008 UMBILICAL HERNIA W/O GANGRENE/OBSTRUCTION [K42.*05/28/2008 11/29/2014 Personal history of colonic polyps [Z86.0100] 07/20/2011 Inclusion cyst [L72.0] 01/16/2013 03/02/2013 Ganglion and cyst of synovium, tendon and bursa*03/02/2013 11/29/2014 Actinic Keratoses: 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] 07/25/2013 11/29/2014 Actinic skin damage [L57.8] 07/25/2013 Cutaneous skin tags [L91.8] 07/25/2013 11/29/2014 Viral warts, unspecified [B07.9] 09/06/2013 11/29/2014 Peripheral neuropathy (HCC) [G62.9] 11/29/2014 05/25/2016 Family history of prostate cancer in father [Z8*02/25/2015 Aortic stenosis with bicuspid valve (HCC) [I35.*03/01/2015 ELOISE positive [R76.8] 10/02/2015 Bilateral low back pain with right-sided sciati*10/02/2015 05/25/2016 Family history of psoriasis [Z84.0] 10/02/2015 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*10/02/2015 Chronic pain of both knees [M25.561, M25.562, G*10/02/2015 05/25/2016 Numbness and tingling in both hands [R20.0, R20*10/02/2015 05/25/2016 Numbness and tingling of both legs [R20.0, R20.*10/02/2015 05/25/2016 Hyperlipidemia LDL goal <130 [E78.5] 05/04/2016 Impaired fasting glucose [R73.01] 08/27/2017 Vitamin D deficiency [E55.9] 08/27/2017 Pre-op testing [Z01.818] 11/10/2017 11/16/2017 On mechanically assisted ventilation (HCC) [Z99*11/12/2017 11/13/2017 Atelectasis [J98.11] 11/13/2017 11/16/2017 Pleural effusion [J90] 11/14/2017 11/16/2017 A-fib (HCC) [I48.91] 11/15/2017 11/16/2017 Transition of care performed with sharing of cl*11/16/2017 Coronary artery disease involving kake moore*11/16/2017 History of aortic valve replacement with biopro*11/26/2017 ED (erectile dysfunction) of organic origin [N5*03/24/2018 Presence of prosthetic heart valve [Z95.2] 03/23/2018 Arthritis of hip [M16.10] 05/16/2020 Arthritis of knee [M17.10] 05/16/2020 Degenerative arthritis of metacarpophalangeal j*05/16/2020 Chronic cough [R05.3] 05/16/2020 Obesity, Class II, BMI 35-39.9 [E66.812] 04/18/2023 Encounter Status:Closed by CARLA OROURKE on 02/21/25 [facility] 02-06-2025 Note HNO ID: [id number] Author: NESTOR LINO, DO Service: ? Author Type: Physician Type: Progress Notes Filed: 02/06/2025 10:05 Note Text: Subjective The patient is a 69-year-old male presenting for follow-up of a finger injury. Finger Injury: - Noted improvement in finger condition. - Consistently wearing a splint 24/7. - Experiences pain when the finger is bumped. - Has arthritis in the affected joint. - Previously used Voltaren gel for arthritis pain. Musculoskeletal: (+) finger joint pain Objective There were no vitals taken for this visit. General: No acute distress. MSK/Ext: Slight extension lag in finger, able to flex and extend finger with minimal lag, no pain on movement, arthritis present in affected joint. Assessment AND Plan 1. Mallet finger of left finger(s) (M20.012) - Improving; full extension nearly achieved with splinting. - Discontinue daytime splint use; continue nighttime splinting for 2 more weeks to reinforce extension. - Educated patient that a small extension lag may persist but should not cause functional problems. - Follow-up only if problems arise. 2. Primary osteoarthritis, left hand (M19.042) - Ongoing joint pain in affected finger. - Advised use of Voltaren gel to affected joints 3 times daily for pain management. Recording using [employer] software for draft documentation of the visit was discussed with the patient/authorized phone representative; all questions welcomed and answered. Patient/authorized phone representative agreed to proceed [facility] 02-06-2025 History of Present illness Narrative Subjective The patient is a 69-year-old male presenting for follow-up of a finger injury. Finger Injury: - Noted improvement in finger condition. - Consistently wearing a splint 24/7. - Experiences pain when the finger is bumped. - Has arthritis in the affected joint. - Previously used Voltaren gel for arthritis pain. Musculoskeletal: (+) finger joint pain Objective There were no vitals taken for this visit. General: No acute distress. MSK/Ext: Slight extension lag in finger, able to flex and extend finger with minimal lag, no pain on movement, arthritis present in affected joint. Assessment & Plan 1. Mallet finger of left finger(s) (M20.012) - Improving; full extension nearly achieved with splinting. - Discontinue daytime splint use; continue nighttime splinting for 2 more weeks to reinforce extension. - Educated patient that a small extension lag may persist but should not cause functional problems. - Follow-up only if problems arise. 2. Primary osteoarthritis, left hand (M19.042) - Ongoing joint pain in affected finger. - Advised use of Voltaren gel to affected joints 3 times daily for pain management. Recording using [employer] software for draft documentation of the visit was discussed with the patient/authorized phone representative; all questions welcomed and answered. Patient/authorized phone representative agreed to proceed AMB ROOMING INTAKE FLOWSHEET DATA Patient here today for right 5th finger mallet finger. Patient denies any pain. documented in this encounter [facility] [place] 02-06-2025 Note HNO ID: [id number] Author: EMILY HOLLAND MA Service: ? Author Type: Petroleum Refinery Worker Type: Progress Notes Filed: 02/06/2025 10:05 Note Text: AMB ROOMING INTAKE FLOWSHEET DATA Patient here today for right 5th finger mallet finger. Patient denies any pain. [facility] 01-23-2025 History of Present illness Narrative Chief Complaint Patient presents with: Follow Up: BP & edema HPI Bonny Redding is a 69 year old male who presents here today for above reason. Orlando Redding is a 69-year-old male with a history of HTN and varicose veins, presenting for follow-up. Started on HCTZ 12.5 mg daily at our last visit. Orlando reports no significant changes in his varicose veins, leg swelling since his last visit on December 25. He notes a sensation of tightness in his calves but denies any pain. He also denies any changes in breathing or chest pain. He has been monitoring his blood pressure at home, reporting readings consistently around 123-124/60s. He notes improvement in his blood pressure since starting his current medication regimen. He has a follow-up echocardiogram scheduled for April in relation with his cardiology care. Past medical history, appointments, medications, allergies reviewed. ROS: Cardiovascular: (-) chest pain Respiratory: (-) shortness of breath Musculoskeletal: (+) bilateral calf tightness, (-) calf pain Skin: (+) bilateral leg swelling, (-) leg redness EXAM: BP 124/66 (BP Site: Left Arm, BP Position: Sitting, BP Cuff Size: Large Adult) Pulse 60 Wt (!) 145.9 kg (321 lb 9.6 oz) SpO2 96% BMI 43.62 kg/m General Appearance: Well appearing, alert, in no acute distress, well-hydrated, well nourished.. Lungs: Lungs clear to auscultation. No wheezing, rhonchi, rales.. Heart: RRR without murmur, gallop, or rubs. No ectopy. Extremities: 1+ pitting edema bilaterally; 19 in circumference around both calves. No erythema or warmth. No calf tenderness. Again, tortious veins present in the right lower extremity.. Assessment and Plan 1. Bilateral leg edema (R60.0) Persistent edema with more pronounced varicosities on the right leg. No signs of infection, DVT, or erythema. No associated dyspnea or chest pain. Scheduled nephrogram in April. - Recommended compression stockings during daytime; measured calf circumference suggests size XL or XXL. - Sent a message to cigarette making examiner to consider advancing echocardiogram date. - Follow-up after cardiology 2. Essential (primary) hypertension (I10) Blood pressure readings improved with current medication regimen, averaging 123-124/60s. Previous readings were in the 130s/90s. - Continue current antihypertensive therapy. - Monitor for potential hypotension and dizziness. - Scheduled labs in one month to assess electrolyte levels. Ye Sharma APRN.BOARD WRITER RTO in 1 months, sooner if needed. This note was partly generated using [employer] voice recognition dictation and may contain some misspelled or inaccurate words missed on review. Recording using [employer] software for draft documentation of the visit was discussed with the patient/authorized phone representative; all questions welcomed and answered. Patient/authorized phone representative agreed to proceed documented in this encounter [facility] [place] 01-23-2025 Note HNO ID: [id number] Author: YE SHARMA APRN.BOARD WRITER Service: ? Author Type: Nurse Practitioner Type: Progress Notes Filed: 01/23/2025 08:53 Note Text: Chief Complaint Patient presents with: Follow Up: BP AND edema HPI Bonny Redding Jr. is a 69 year old male who presents here today for above reason. Orlando Redding is a 69-year-old male with a history of HTN and varicose veins, presenting for follow-up. Started on HCTZ 12.5 mg daily at our last visit. Orlando reports no significant changes in his varicose veins, leg swelling since his last visit on December 25. He notes a sensation of tightness in his calves but denies any pain. He also denies any changes in breathing or chest pain. He has been monitoring his blood pressure at home, reporting readings consistently around 123-124/60s. He notes improvement in his blood pressure since starting his current medication regimen. He has a follow-up echocardiogram scheduled for April in relation with his cardiology care. Past medical history, appointments, medications, allergies reviewed. ROS: Cardiovascular: (-) chest pain Respiratory: (-) shortness of breath Musculoskeletal: (+) bilateral calf tightness, (-) calf pain Skin: (+) bilateral leg swelling, (-) leg redness EXAM: BP 124/66 (BP Site: Left Arm, BP Position: Sitting, BP Cuff Size: Large Adult) Pulse 60 Wt (!) 145.9 kg (321 lb 9.6 oz) SpO2 96% BMI 43.62 kg/m? General Appearance: Well appearing, alert, in no acute distress, well-hydrated, well nourished.. Lungs: Lungs clear to auscultation. No wheezing, rhonchi, rales.. Heart: RRR without murmur, gallop, or rubs. No ectopy. Extremities: 1+ pitting edema bilaterally; 19 in circumference around both calves. No erythema or warmth. No calf tenderness. Again, tortious veins present in the right lower extremity.. Assessment and Plan 1. Bilateral leg edema (R60.0) Persistent edema with more pronounced varicosities on the right leg. No signs of infection, DVT, or erythema. No associated dyspnea or chest pain. Scheduled nephrogram in April. - Recommended compression stockings during daytime; measured calf circumference suggests size XL or XXL. - Sent a message to cigarette making examiner to consider advancing echocardiogram date. - Follow-up after cardiology 2. Essential (primary) hypertension (I10) Blood pressure readings improved with current medication regimen, averaging 123-124/60s. Previous readings were in the 130s/90s. - Continue current antihypertensive therapy. - Monitor for potential hypotension and dizziness. - Scheduled labs in one month to assess electrolyte levels. Ye Sharma APRN.BOARD WRITER RTO in 1 months, sooner if needed. This note was partly generated using [employer] voice recognition dictation and may contain some misspelled or inaccurate words missed on review. Recording using [employer] software for draft documentation of the visit was discussed with the patient/authorized phone representative; all questions welcomed and answered. Patient/authorized phone representative agreed to proceed [facility] 01-18-2025 Telephone encounter Note Call from pharmacy requesting refill. Requested Prescriptions Pending Prescriptions Disp Refills losartan (COZAAR) 100 mg tablet 90 tablet 0 Sig: Take 1 tablet by mouth once daily. Patient last seen 05/02/25 Kaylyn Wallace [facility] [place] 01-18-2025 Miscellaneous Notes Call from pharmacy requesting refill. Requested Prescriptions Pending Prescriptions Disp Refills losartan (COZAAR) 100 mg tablet 90 tablet 0 Sig: Take 1 tablet by mouth once daily. Patient last seen 05/02/25 Kaylyn Wallace documented in this encounter [facility] [place] 01-09-2025 Note HNO ID: [id number] Author: NESTOR LINO, DO Service: ? Author Type: Physician Type: Progress Notes Filed: 01/09/2025 11:48 Note Text: Subjective The patient is a 69-year-old male with a history of arthritis, presenting for evaluation of left finger pain and deformity. Left Finger Pain and Deformity: - Onset after jamming the finger against a wall. - Pain localized to the distal interphalangeal joint, especially during extension. - Limited control over extension; finger drops a little bit. - No pain during flexion. - Denies noticing a lump on the finger before the injury. - Recent X-ray showed no fractures but revealed arthritis in the affected joint. Musculoskeletal: (+) left finger joint pain with extension Objective There were no vitals taken for this visit. General: No acute distress. MSK/Ext: Left distal interphalangeal joint with mild mallet deformity, partial extension lag, tenderness on extension, no pain on flexion. Imaging: - Left distal interphalangeal joint X-ray: Significant degenerative changes with joint space narrowing, subchondral cyst formation, and bone spurring consistent with arthritis. No evidence of fracture or malalignment. Assessment AND Plan 1. Injury of finger of left hand, initial encounter (S69.92XA) 2. Mallet finger of left finger(s) (M20.012) - Exam reveals limited extension with mild mallet deformity; no fractures noted on X-ray, but significant degenerative changes and osteophyte formation observed in the distal interphalangeal joint. - Likely partial tear of the extensor tendon. - Applied an Oval-8 ring splint to maintain the finger in extension, secured with Coban. - Advised patient to keep the finger in full extension if the splint needs to be removed. - Discussed the likelihood of residual stiffness due to underlying osteoarthritis. - Follow-up in 4 weeks to assess healing and splint effectiveness. Recording using [employer] software for draft documentation of the visit was discussed with the patient/authorized phone representative; all questions welcomed and answered. Patient/authorized phone representative agreed to proceed [facility] 01-09-2025 History of Present illness Narrative Subjective The patient is a 69-year-old male with a history of arthritis, presenting for evaluation of left finger pain and deformity. Left Finger Pain and Deformity: - Onset after jamming the finger against a wall. - Pain localized to the distal interphalangeal joint, especially during extension. - Limited control over extension; finger drops a little bit. - No pain during flexion. - Denies noticing a lump on the finger before the injury. - Recent X-ray showed no fractures but revealed arthritis in the affected joint. Musculoskeletal: (+) left finger joint pain with extension Objective There were no vitals taken for this visit. General: No acute distress. MSK/Ext: Left distal interphalangeal joint with mild mallet deformity, partial extension lag, tenderness on extension, no pain on flexion. Imaging: - Left distal interphalangeal joint X-ray: Significant degenerative changes with joint space narrowing, subchondral cyst formation, and bone spurring consistent with arthritis. No evidence of fracture or malalignment. Assessment & Plan 1. Injury of finger of left hand, initial encounter (S69.92XA) 2. Mallet finger of left finger(s) (M20.012) - Exam reveals limited extension with mild mallet deformity; no fractures noted on X-ray, but significant degenerative changes and osteophyte formation observed in the distal interphalangeal joint. - Likely partial tear of the extensor tendon. - Applied an Oval-8 ring splint to maintain the finger in extension, secured with Coban. - Advised patient to keep the finger in full extension if the splint needs to be removed. - Discussed the likelihood of residual stiffness due to underlying osteoarthritis. - Follow-up in 4 weeks to assess healing and splint effectiveness. Recording using [employer] software for draft documentation of the visit was discussed with the patient/authorized phone representative; all questions welcomed and answered. Patient/authorized phone representative agreed to proceed Patient presents with: Left 5th finger - ? Mallet finger: [facility] Pain Pain Level: 4 Pain Location: Finger Description: Shooting Duration Amount of Time: 1 Duration Units: Minutes Frequency: Intermittent Intervention/Comfort measure: Other: See comment Comments: None documented in this encounter [facility] [place] 01-09-2025 Note HNO ID: [id number] Author: ROSE RODARTE MA Service: ? Author Type: Petroleum Refinery Worker Type: Progress Notes Filed: 01/09/2025 11:48 Note Text: Patient presents with: Left 5th finger - ? Mallet finger: [facility]erred [facility] IN[facility] DATA Pain Pain Level: 4 Pain Location: Finger Description: Shooting Duration Amount of Time: 1 Duration Units: Minutes Frequency: Intermittent Intervention/Comfort measure: Other: See comment Comments: None [facility] 01-08-2025 Telephone encounter Note Patient given results and verbalized understanding of instructions given. Zulma Moise MA [facility] [place] 01-08-2025 Miscellaneous Notes Patient given results and verbalized understanding of instructions given. Zulma Moise MA Please inform patient that there was no acute findings noted on x-ray however there were arthritic changes noted on imaging. Recommended following up with orthopedics for reevaluation for possible mallet finger. Bull Mascorro APRN.CNP documented in this encounter [facility] 01-08-2025 Telephone encounter Note Please inform patient that there was no acute findings noted on x-ray however there were arthritic changes noted on imaging. Recommended following up with orthopedics for reevaluation for possible mallet finger. Bull Mascorro APRN.CNP [facility] Work Phone: 01-08-2025 History of Present illness Narrative Radiology Service Progress Note PATIENT NAME: Bonny Redding Jr. DATE OF SERVICE: January 08, 2025 TIME: 11:45 AM PATIENT IDENTITY VERIFICATION COMPLETED USING TWO (2) IDENTIFIERS: Name and Date of confirmed by patient verbally. FALL SCREENING: Has the patient had 2 falls in the last year or 1 fall with injury or currently using an Ambulatory Assistive Device (Walker, Cane, Wheelchair, Crutches, etc.)? No PATIENT GENDER DATA: Assigned male at PATIENT RELEVANT IMPLANT DATA REVIEWED: Not Applicable PATIENT PRESENTS WITH AN IMPLANTABLE OR ATTACHED FIRST DYER: No RADIOLOGY DEPARTMENT: General X-ray: Exam(s) Completed: Upper Extremity X-Ray(s): Fingers/Thumb, left PERIPHERAL IV DATA: Not applicable SIGNED BY: RT Vlad(Nayely) January 08, 2025 11:45 AM documented in this encounter [facility] [place] 01-08-2025 Note HNO ID: [id number] Author: IVETTE DAN RT(R) Service: ? Author Type: Technologist Type: Progress Notes Filed: 01/08/2025 11:51 Note Text: Radiology Service Progress Note PATIENT NAME: Bonny Redding Jr. DATE OF SERVICE: January 08, 2025 TIME: 11:45 AM PATIENT IDENTITY VERIFICATION COMPLETED USING TWO (2) IDENTIFIERS: Name and Date of confirmed by patient verbally. FALL SCREENING: Has the patient had 2 falls in the last year or 1 fall with injury or currently using an Ambulatory Assistive Device (Walker, Cane, Wheelchair, Crutches, etc.)? No PATIENT GENDER DATA: Assigned male at PATIENT RELEVANT IMPLANT DATA REVIEWED: Not Applicable PATIENT PRESENTS WITH AN IMPLANTABLE OR ATTACHED FIRST DYER: No RADIOLOGY DEPARTMENT: General X-ray: Exam(s) Completed: Upper Extremity X-Ray(s): Fingers/Thumb, left PERIPHERAL IV DATA: Not applicable SIGNED BY: RT Vlad(R) January 08, 2025 11:45 AM [facility] 01-08-2025 Note HNO ID: [id number] Author: BULL MASCORRO APRN.BOARD WRITER Service: ? Author Type: Nurse Practitioner Type: Progress Notes Filed: 01/08/2025 12:04 Note Text: Subjective HPI Nontoxic-appearing 69-year-old male presents urgent care chief complaint left finger injury. Patient states 6 days ago he stubbed his fifth digit into the wall. This resulted in discomfort. Presents today for evaluation. OTC medications none recently. Pain with increase range of motion improved by rest. No surgeries fractures previously. Left hand dominant. Past medical history prescription medications allergies reviewed. .Patient presents with: Finger Injury: left pinky finger pain x 6 days, stoved against wall PAST MEDICAL HISTORY Diagnosis Date Aortic stenosis with bicuspid valve (HCC) 03/01/2015 Benign neoplasm of colon Chronic cough 05/16/2020 No resolution when ACEi stopped. Negative methecholine challenge 09/2020. Coronary artery disease Essential hypertension, benign 15 yr Obesity, unspecified Other and unspecified hyperlipidemia 15 yrs Peripheral neuropathy 11/29/2014 Personal history of colonic polyps Snoring Unspecified sleep apnea 2006 uses CPAP Vitamin D deficiency 2017 PAST SURGICAL HISTORY Procedure Laterality Date CATARACT EXTRACTION HX 2014 COLONOSCOPY FLX DX W/COLLJ SPEC WHEN PFRMD 08/31/2007 Colonoscopy COLONOSCOPY FLX DX W/COLLJ SPEC WHEN PFRMD N/A 10/12/2016 COLONOSCOPY W/BIOPSY SINGLE/MULTIPLE 07/20/2011 EXC LESION TDN SHTH/JT CAPSL HAND/FNGR 02/24/2013 Excision ganglion cyst left middle finger HEART SURGERY HX LAPAROSCOPY SURG RPR INITIAL INGUINAL HERNIA 05/17/2008 RIGHT PAST SURGICAL HISTORY OF tonsils and adenoids removed PAST SURGICAL HISTORY OF hernia PAST SURGICAL HISTORY OF 04/18/2008 right meniscus repair PAST SURGICAL HISTORY OF 07/2010 right foot surgery PAST SURGICAL HISTORY OF Right 07/28/2022 Right carpometacarpal arthroplasty with flexor carpi radialis interposition, first dorsal compartment tenosynovectomy right partial trapezodi excision REPAIR ROTATOR CUFF,ACUTE Right 05/25/2024 [facility] RPR UMBILICAL HRNA 5 YRS/> REDUCIBLE 05/17/2008 SEPTOPLASTY/SUBMUCOUS RESECJ W/WO CARTILAGE GRF 2004 Septoplasty TOTAL KNEE REPLACEMENT Left 11/13/2022 Dr. Jackson Mera TOTAL KNEE REPLACEMENT Right 02/19/2023 ALLERGIES Patient has no known allergies. MEDICATIONS hydroCHLOROthiazide 12.5 mg capsule Take 1 capsule by mouth once daily. losartan (COZAAR) 100 mg tablet TAKE 1 TABLET BY MOUTH EVERY DAY atorvastatin (LIPITOR) 20 mg tablet Take 1 tablet by mouth once daily. amLODIPine (NORVASC) 5 mg tablet Take 1 tablet by mouth once daily. Tadalafil (CIALIS) 20 mg tablet Take 1 tablet by mouth as needed. OTC PRODUCT Vitamin D 500mg daily aspirin 81 mg chewable tablet Take 2 tablets by mouth once daily. FAMILY HISTORY Problem Relation Age of Onset Alzheimer's Disease Mother age 76-COPD COPD Mother other (Hypertension, Hyperlipidemia) Mother Coronary Artery Disease Father 60 valve replacement Prostate Cancer Father other (PARKINSON) Father Prostate Cancer Paternal Uncle Prostate Cancer Maternal Grandfather Hypertension Sister Social History Tobacco Use Smoking status: Never Smokeless tobacco: Never Tobacco comments: ETS in childhood home, motrher smoker. Vaping Use Vaping status: Never Used Substance Use Topics Alcohol use: No Drug use: No BP 124/68 Pulse 64 Temp 36.6 ?C (97.8 ?F) Resp 16 Wt (!) 144.6 kg (318 lb 12.6 oz) SpO2 95% BMI 43.24 kg/m? Review of Systems Constitutional: Negative for chills, fever and malaise/fatigue. Musculoskeletal: Positive for joint pain. Negative for back pain, falls, myalgias and neck pain. Neurological: Negative for dizziness, loss of consciousness, weakness and headaches. Objective Physical Exam Constitutional: General: He is not in acute distress. Appearance: He is not toxic-appearing. HENT: Head: Normocephalic. Nose: Nose normal. Eyes: Pupils: Pupils are equal, round, and reactive to light. Cardiovascular: Rate and Rhythm: Normal rate. Pulmonary: Effort: Pulmonary effort is normal. No respiratory distress. Musculoskeletal: Cervical back: Normal range of motion. Comments: No pain with palpation over metacarpals. Pain with palpation over DIP joint fifth digit. More laterally. No pain with palpation over MCP or PIP joint. Neurovascular intact. Mild weakness with extension of DIP joint. Neurovascular intact. Skin: General: Skin is warm and dry. Neurological: General: No focal deficit present. Mental Status: He is alert. ASSESSMENT/PLAN: 1. 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 No acute findings noted (more content not included)... [facility] 01-08-2025 History of Present illness Narrative Subjective HPI Nontoxic-appearing 69-year-old male presents urgent care chief complaint left finger injury. Patient states 6 days ago he stubbed his fifth digit into the wall. This resulted in discomfort. Presents today for evaluation. OTC medications none recently. Pain with increase range of motion improved by rest. No surgeries fractures previously. Left hand dominant. Past medical history prescription medications allergies reviewed. .Patient presents with: Finger Injury: left pinky finger pain x 6 days, stoved against wall PAST MEDICAL HISTORY Diagnosis Date Aortic stenosis with bicuspid valve (HCC) 03/01/2015 Benign neoplasm of colon Chronic cough 05/16/2020 No resolution when ACEi stopped. Negative methecholine challenge 09/2020. Coronary artery disease Essential hypertension, benign 15 yr Obesity, unspecified Other and unspecified hyperlipidemia 15 yrs Peripheral neuropathy 11/29/2014 Personal history of colonic polyps Snoring Unspecified sleep apnea 2006 uses CPAP Vitamin D deficiency 2017 PAST SURGICAL HISTORY Procedure Laterality Date CATARACT EXTRACTION HX 2014 COLONOSCOPY FLX DX W/COLLJ SPEC WHEN PFRMD 08/31/2007 Colonoscopy COLONOSCOPY FLX DX W/COLLJ SPEC WHEN PFRMD N/A 10/12/2016 COLONOSCOPY W/BIOPSY SINGLE/MULTIPLE 07/20/2011 EXC LESION TDN SHTH/JT CAPSL HAND/FNGR 02/24/2013 Excision ganglion cyst left middle finger HEART SURGERY HX LAPAROSCOPY SURG RPR INITIAL INGUINAL HERNIA 05/17/2008 RIGHT PAST SURGICAL HISTORY OF tonsils and adenoids removed PAST SURGICAL HISTORY OF hernia PAST SURGICAL HISTORY OF 04/18/2008 right meniscus repair PAST SURGICAL HISTORY OF 07/2010 right foot surgery PAST SURGICAL HISTORY OF Right 07/28/2022 Right carpometacarpal arthroplasty with flexor carpi radialis interposition, first dorsal compartment tenosynovectomy right partial trapezodi excision REPAIR ROTATOR CUFF,ACUTE Right 05/25/2024 [facility] RPR UMBILICAL HRNA 5 YRS/> REDUCIBLE 05/17/2008 SEPTOPLASTY/SUBMUCOUS RESECJ W/WO CARTILAGE GRF 2004 Septoplasty TOTAL KNEE REPLACEMENT Left 11/13/2022 Dr. Jackson Mera TOTAL KNEE REPLACEMENT Right 02/19/2023 ALLERGIES Patient has no known allergies. MEDICATIONS hydroCHLOROthiazide 12.5 mg capsule Take 1 capsule by mouth once daily. losartan (COZAAR) 100 mg tablet TAKE 1 TABLET BY MOUTH EVERY DAY atorvastatin (LIPITOR) 20 mg tablet Take 1 tablet by mouth once daily. amLODIPine (NORVASC) 5 mg tablet Take 1 tablet by mouth once daily. Tadalafil (CIALIS) 20 mg tablet Take 1 tablet by mouth as needed. OTC PRODUCT Vitamin D 500mg daily aspirin 81 mg chewable tablet Take 2 tablets by mouth once daily. FAMILY HISTORY Problem Relation Age of Onset Alzheimer's Disease Mother age 76-COPD COPD Mother other (Hypertension, Hyperlipidemia) Mother Coronary Artery Disease Father 60 valve replacement Prostate Cancer Father other (PARKINSON) Father Prostate Cancer Paternal Uncle Prostate Cancer Maternal Grandfather Hypertension Sister Social History Tobacco Use Smoking status: Never Smokeless tobacco: Never Tobacco comments: ETS in childhood home, motrher smoker. Vaping Use Vaping status: Never Used Substance Use Topics Alcohol use: No Drug use: No BP 124/68 Pulse 64 Temp 36.6 C (97.8 F) Resp 16 Wt (!) 144.6 kg (318 lb 12.6 oz) SpO2 95% BMI 43.24 kg/m Review of Systems Constitutional: Negative for chills, fever and malaise/fatigue. Musculoskeletal: Positive for joint pain. Negative for back pain, falls, myalgias and neck pain. Neurological: Negative for dizziness, loss of consciousness, weakness and headaches. Objective Physical Exam Constitutional: General: He is not in acute distress. Appearance: He is not toxic-appearing. HENT: Head: Normocephalic. Nose: Nose normal. Eyes: Pupils: Pupils are equal, round, and reactive to light. Cardiovascular: Rate and Rhythm: Normal rate. Pulmonary: Effort: Pulmonary effort is normal. No respiratory distress. Musculoskeletal: Cervical back: Normal range of motion. Comments: No pain with palpation over metacarpals. Pain with palpation over DIP joint fifth digit. More laterally. No pain with palpation over MCP or PIP joint. Neurovascular intact. Mild weakness with extension of DIP joint. Neurovascular intact. Skin: General: Skin is warm and dry. Neurological: General: No focal deficit present. Mental Status: He is alert. ASSESSMENT/PLAN: 1. 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 No acute findings noted on imaging. Patient did have some discomfort with palpation over DIP joint and some mild weakness with extension. Concerned about possible mallet finger. Placed in finger splint. Orthopedic referral follow-up recommended. Patient was educated on supportive therapies. Patient will follow up with primary care provider as needed. Patient was instructed to immediately proceed to emergency room for any new, worsening, or symptoms lasting longer than anticipated. The patient's clinical presentation is otherwise unremarkable at this time. Based on exam and clinical finding, the patient is stable for discharge. Plan of care was discussed with patient. Patient verbalizes understanding and agrees to plan of care. This note was generated using [employer] software. It may contain errors in wording, punctuation, or spelling. Bull Mascorro APRN.DILIP documented in this encounter [facility] [place] 12-25-2024 Instructions Ye Sharma APRN.CNP - 12/25/2024 11:53 AM EDT We discussed your leg swelling and calf tightness: - I do not believe the swelling is due to a blood clot, as there are no concerning signs such as redness, warmth, or significant size differences between your legs. - The swelling may be related to your amlodipine (5 mg daily), though this side effect is more common at higher doses. Your weight, prolonged sitting, and varicose veins may also contribute. - To help reduce the swelling and lower your blood pressure, I am starting you on hydrochlorothiazide 12.5 mg once daily. This prescription has been sent to your pharmacy. - Avoid sitting for prolonged periods. If you must sit for extended times, try to elevate your legs when possible. - Compression stockings may help reduce swelling, though they can be uncomfortable in warmer weather. - If you notice worsening symptoms, such as one leg becoming significantly larger, red, hot, or painful, or if you develop new or worsening shortness of breath, please contact our office immediately or go to the ER, as these could be signs of a blood clot. We discussed your blood pressure: - Your blood pressure today was slightly elevated, particularly the diastolic (bottom) number. The addition of hydrochlorothiazide should help improve this. - Please monitor your blood pressure at home and keep a record of your readings. Bring these to your next visit. We discussed follow-up with your cigarette making examiner: - Your heart function appears stable based on your recent echocardiogram and EKG results. However, I recommend updating your cigarette making examiner about your symptoms. They may want to move up your next echocardiogram, currently scheduled for April. - If your cigarette making examiner has additional recommendations, please let us know. Follow-up: - Please schedule a follow-up appointment with me in 4 weeks to assess how you are responding to hydrochlorothiazide and to check on your swelling and blood pressure. - If you have any questions or concerns before then, please contact our office. documented in this encounter [facility] [place] 12-25-2024 History of Present illness Narrative Chief Complaint Patient presents with: Leg Edema HPI Bonny Redding Jr. is a 69 year old male who presents here today for above reason. Monitoring b/l leg edema R>L. Noticing a sock line at the end of the day. Calves feel tighter. Ongoing for the past two months. Orlando Redding is a 69-year-old male with a history of a prosthetic aortic valve and HTN, presenting with bilateral calf swelling and heaviness. Orlando reports a 1.5 month history of increased bilateral calf swelling and heaviness, with the right calf appearing larger than the left. He has noticed indentations from his socks and tightness in his jeans around the calf area. The swelling is more pronounced from the mid-calf downwards and is associated with a tingling sensation in both legs. He denies any pain, abnormal warmth, or redness in the calves. Orlando has a history of a prosthetic aortic valve and is currently on losartan 100 mg daily and amlodipine 5 mg daily, which was started in April to manage his blood pressure. He denies any chest pain, orthopnea, or significant weight gain. He has a sedentary lifestyle due to a part-time [id number] job, which involves prolonged periods of sitting. He also has a history of decreased activity levels following a shoulder dislocation last summer, which required surgery in May. He had an echocardiogram in April, which did not show any signs of heart failure, and he has a follow-up echocardiogram scheduled for April. He denies any increase in dyspnea or palpitations since his last cardiology visit. Past medical history, appointments, medications, allergies reviewed. EXAM: BP 126/94 (BP Site: Left Arm, BP Position: Sitting, BP Cuff Size: Large Adult) Pulse 60 Resp 20 Wt (!) 145.8 kg (321 lb 6.4 oz) BMI 43.59 kg/m General Appearance: Well appearing, alert, in no acute distress, well-hydrated, well nourished. and Morbidly obese. Lungs: Lungs clear to auscultation. No wheezing, rhonchi, rales.. Heart: RRR without murmur, gallop, or rubs. No ectopy. Extremities: Right LE calf measuring 19.25 in, there is no erythema, tenderness or warmth to the calf. +1-2 pitting edema mid tib-fib to the ankle; Left LE calf measuring 19 in.there is no erythema, tenderness or warmth to the calf. +1-2 pitting edema mid tib-fib to the ankle; Tortuous varicose vein present on the right inner calf. Assessment and Plan 1. Essential hypertension, benign Currently managed with Losartan 100 mg daily and Amlodipine 5 mg daily. Recent BP readings show elevated diastolic pressure at 94 mmHg. Amlodipine initiated in April; potential side effect of peripheral edema noted, though typically more pronounced at higher doses. - Initiated Hydrochlorothiazide 12.5 mg once daily to address elevated BP and assist with fluid reduction in lower extremities. - Advised patient to monitor BP at home and report any significant changes. 2. Bilateral leg edema Edema in both legs, more pronounced in the right leg, with a difference of 0.25 inches in calf circumference (right calf 19.25 inches, left calf 19 inches). No significant warmth or erythema noted. Edema may be multifactorial, including side effects of Amlodipine, prolonged sitting, and varicose veins. Recent echocardiogram in April showed no signs of heart failure. - Initiated Hydrochlorothiazide 12.5 mg once daily. - Advised patient to avoid prolonged sitting and consider use of compression stockings if edema worsens. - Monitor for signs of DVT, including significant unilateral leg swelling, redness, warmth, and pain. - Follow-up in four weeks to assess response to treatment and reevaluate need for further diagnostic testing, such as an echocardiogram. 3. Presence of prosthetic heart valve Patient has a history of a prosthetic aortic valve. Recent echocardiogram in April showed no signs of heart failure. No current symptoms of chest pain or increased shortness of breath. Weight has remained stable within 4-5 pounds since last April. - Advised patient to update cigarette making examiner on current symptoms and treatment plan. - Consideration for earlier echocardiogram if recommended by cigarette making examiner. Ye Sharma APRN.CNP RTO in 4 weeks, sooner if needed. This note was partly generated using [employer] voice recognition dictation and may contain some misspelled or inaccurate words missed on review. Recording using [employer] software for draft documentation of the visit was discussed with the patient/authorized phone representative; all questions welcomed and answered. Patient/authorized phone representative agreed to proceed documented in this encounter [facility] [place] 12-25-2024 Note HNO ID: [id number] Author: YE SHARMA APRN.CNP Service: ? Author Type: Nurse Practitioner Type: Progress Notes Filed: 12/25/2024 12:00 Note Text: Chief Complaint Patient presents with: Leg Edema HPI Bonny Redding Jr. is a 69 year old male who presents here today for above reason. Monitoring b/l leg edema R>L. Noticing a sock line at the end of the day. Calves feel tighter. Ongoing for the past two months. Orlando Redding is a 69-year-old male with a history of a prosthetic aortic valve and HTN, presenting with bilateral calf swelling and heaviness. Orlando reports a 1.5 month history of increased bilateral calf swelling and heaviness, with the right calf appearing larger than the left. He has noticed indentations from his socks and tightness in his jeans around the calf area. The swelling is more pronounced from the mid-calf downwards and is associated with a tingling sensation in both legs. He denies any pain, abnormal warmth, or redness in the calves. Orlando has a history of a prosthetic aortic valve and is currently on losartan 100 mg daily and amlodipine 5 mg daily, which was started in April to manage his blood pressure. He denies any chest pain, orthopnea, or significant weight gain. He has a sedentary lifestyle due to a part-time [id number] job, which involves prolonged periods of sitting. He also has a history of decreased activity levels following a shoulder dislocation last summer, which required surgery in May. He had an echocardiogram in April, which did not show any signs of heart failure, and he has a follow-up echocardiogram scheduled for April. He denies any increase in dyspnea or palpitations since his last cardiology visit. Past medical history, appointments, medications, allergies reviewed. EXAM: BP 126/94 (BP Site: Left Arm, BP Position: Sitting, BP Cuff Size: Large Adult) Pulse 60 Resp 20 Wt (!) 145.8 kg (321 lb 6.4 oz) BMI 43.59 kg/m? General Appearance: Well appearing, alert, in no acute distress, well-hydrated, well nourished. and Morbidly obese. Lungs: Lungs clear to auscultation. No wheezing, rhonchi, rales.. Heart: RRR without murmur, gallop, or rubs. No ectopy. Extremities: Right LE calf measuring 19.25 in, there is no erythema, tenderness or warmth to the calf. +1-2 pitting edema mid tib-fib to the ankle; Left LE calf measuring 19 in.there is no erythema, tenderness or warmth to the calf. +1-2 pitting edema mid tib-fib to the ankle; Tortuous varicose vein present on the right inner calf. Assessment and Plan 1. Essential hypertension, benign Currently managed with Losartan 100 mg daily and Amlodipine 5 mg daily. Recent BP readings show elevated diastolic pressure at 94 mmHg. Amlodipine initiated in April; potential side effect of peripheral edema noted, though typically more pronounced at higher doses. - Initiated Hydrochlorothiazide 12.5 mg once daily to address elevated BP and assist with fluid reduction in lower extremities. - Advised patient to monitor BP at home and report any significant changes. 2. Bilateral leg edema Edema in both legs, more pronounced in the right leg, with a difference of 0.25 inches in calf circumference (right calf 19.25 inches, left calf 19 inches). No significant warmth or erythema noted. Edema may be multifactorial, including side effects of Amlodipine, prolonged sitting, and varicose veins. Recent echocardiogram in April showed no signs of heart failure. - Initiated Hydrochlorothiazide 12.5 mg once daily. - Advised patient to avoid prolonged sitting and consider use of compression stockings if edema worsens. - Monitor for signs of DVT, including significant unilateral leg swelling, redness, warmth, and pain. - Follow-up in four weeks to assess response to treatment and reevaluate need for further diagnostic testing, such as an echocardiogram. 3. Presence of prosthetic heart valve Patient has a history of a prosthetic aortic valve. Recent echocardiogram in April showed no signs of heart failure. No current symptoms of chest pain or increased shortness of breath. Weight has remained stable within 4-5 pounds since last April. - Advised patient to update cigarette making examiner on current symptoms and treatment plan. - Consideration for earlier echocardiogram if recommended by cigarette making examiner. Ye Sharma APRN.BOARD WRITER RTO in 4 weeks, sooner if needed. This note was partly generated using [employer] voice recognition dictation and may contain some misspelled or inaccurate words missed on review. Recording using [employer] software for draft documentation of the visit was discussed with the patient/authorized phone representative; all questions welcomed and answered. Patient/authorized phone representative agreed to proceed [facility] 12-01-2024 Note HNO ID: [id number] Author: LUZ COSTA APRN.BOARD WRITER Service: ? Author Type: Nurse Practitioner Type: Progress Notes Filed: 12/01/2024 09:28 Note Text: [facility] Subjective Bonny Redding Jr. is a 68 year old male. Patient presents with: Earwax HPI Ear Discomfort and Blockage: - Right ear feels blocked up. - History of earwax buildup, particularly affecting the right hearing aid. - Previous episode of ear infection treated with otic drops for 10 days; no significant improvement noted. - Denies allergies to antibiotics. Review of Systems Ears/Nose/Mouth/Throat: (+) ear pressure (bilateral) Skin: (+) dryness (around ear) Objective BP 134/80 Pulse (!) 55 Resp 20 Wt (!) 144.5 kg (318 lb 9 oz) SpO2 97% BMI 43.21 kg/m? Physical Exam General: No acute distress. HEENT: Right ear canal erythematous and bulging, no cerumen impaction; left ear canal with cerumen impaction; dry skin noted around external ear. {1. Impacted cerumen, left ear (H61.22) - Cerumen impaction noted in the left ear. - Ordered ear irrigation to remove the impacted cerumen. 2. Acute suppurative otitis media of right ear (H66.001) - Examination reveals erythema and bulging of the tympanic membrane in the right ear, consistent with acute suppurative otitis media. - Initiated amoxicillin orally twice daily for 7 days. - Advised follow-up with ENT specialist to ensure resolution of infection. left TM was visible. There is still some partial wax occlusion. Patient tolerated well. TM is within normal limits. and Recording using [employer] software for draft documentation of the visit was discussed with the patient/authorized phone representative; all questions welcomed and answered. Patient/authorized phone representative agreed to proceed MDM Procedures [facility] 10-25-2024 Telephone encounter Note Call from patient requesting refill. Requested Prescriptions Pending Prescriptions Disp Refills losartan (COZAAR) 100 mg tablet [Pharmacy Med Name: Losartan Potassium Oral Tablet 100 MG] 90 tablet 0 Sig: TAKE 1 TABLET BY MOUTH EVERY DAY Patient last seen 05/02/24 Kaylyn Wallace [facility] 10-25-2024 Miscellaneous Notes Call from patient requesting refill. Requested Prescriptions Pending Prescriptions Disp Refills losartan (COZAAR) 100 mg tablet [Pharmacy Med Name: Losartan Potassium Oral Tablet 100 MG] 90 tablet 0 Sig: TAKE 1 TABLET BY MOUTH EVERY DAY Patient last seen 05/02/24 Kaylyn Wallace [facility] [facility] [place] 09-01-2024 Note HNO ID: [id number] Author: DESHAWN GRIGGS PA-C Service: ? Author Type: Physician Packaging Tech Type: Progress Notes Filed: 09/01/2024 09:00 Note Text: This note was created using Yn[employer]. Subjective Bonny Redding Jr. is a 68 year old male. Patient is a 68-year-old male who complains of left ear and sore throat that he has been experiencing for the past 3 days. Patient reports no significant congestion and denies sinus pressure, right ear pain or cough. Patient denies fever, chills or myalgia. Patient believes that he likely had COVID-19 approximately 1 month ago as he and his developed fever, chills and bodyaches. Patient states that his did lose her sensation of taste and smell but he did not. Sore Throat Associated symptoms include ear pain. Review of Systems HENT: Positive for ear pain and sore throat. All other systems reviewed and are negative. Objective BP 135/84 Pulse (!) 58 Temp 36.4 ?C (97.6 ?F) Resp 20 Wt (!) 145.2 kg (320 lb 1.7 oz) SpO2 95% BMI 43.41 kg/m? Physical Exam Vitals and nursing note reviewed. Constitutional: Appearance: Normal appearance. He is normal weight. HENT: Head: Normocephalic and atraumatic. Right Ear: Tympanic membrane, ear canal and external ear normal. Left Ear: Tympanic membrane, ear canal and external ear normal. Nose: Nose normal. Mouth/Throat: Mouth: Mucous membranes are moist. Pharynx: Oropharynx is clear. Eyes: Extraocular Movements: Extraocular movements intact. Conjunctiva/sclera: Conjunctivae normal. Pupils: Pupils are equal, round, and reactive to light. Cardiovascular: Rate and Rhythm: Normal rate and regular rhythm. Pulses: Normal pulses. Heart sounds: Normal heart sounds. Pulmonary: Effort: Pulmonary effort is normal. Breath sounds: Normal breath sounds. Musculoskeletal: Cervical back: Normal range of motion and neck supple. Skin: General: Skin is warm and dry. Capillary Refill: Capillary refill takes less than 2 seconds. Neurological: General: No focal deficit present. Mental Status: He is alert and oriented to person, place, and time. Psychiatric: Mood and Affect: Mood normal. Behavior: Behavior normal. Thought Content: Thought content normal. Judgment: Judgment normal. Assessment and Plan Physical exam findings as noted above. Rapid strep test is negative. Patient was provided with a prescription for prednisone 20 mg and supportive care instructions were discussed. Patient verbalizes clear understanding of same. CLINICAL IMPRESSION: Acute Pharyngitis ASSESSMENT/PLAN: 1. Sore throat - ICD9: 462, ICD10: J02.9 (primary diagnosis) - STREP A MOLECULAR (POC) 2. Acute pharyngitis, unspecified etiology - ICD9: 462, ICD10: J02.9 - PREDNISONE 20 MG TABLET Deshawn Griggs PA-C [facility] 09-01-2024 History of Present illness Narrative This note was created using Ynvisibleter. Subjective Bonny Redding Jr. is a 68 year old male. Patient is a 68-year-old male who complains of left ear and sore throat that he has been experiencing for the past 3 days. Patient reports no significant congestion and denies sinus pressure, right ear pain or cough. Patient denies fever, chills or myalgia. Patient believes that he likely had COVID-19 approximately 1 month ago as he and his developed fever, chills and bodyaches. Patient states that his did lose her sensation of taste and smell but he did not. Sore Throat Associated symptoms include ear pain. Review of Systems HENT: Positive for ear pain and sore throat. All other systems reviewed and are negative. Objective BP 135/84 Pulse (!) 58 Temp 36.4 C (97.6 F) Resp 20 Wt (!) 145.2 kg (320 lb 1.7 oz) SpO2 95% BMI 43.41 kg/m Physical Exam Vitals and nursing note reviewed. Constitutional: Appearance: Normal appearance. He is normal weight. HENT: Head: Normocephalic and atraumatic. Right Ear: Tympanic membrane, ear canal and external ear normal. Left Ear: Tympanic membrane, ear canal and external ear normal. Nose: Nose normal. Mouth/Throat: Mouth: Mucous membranes are moist. Pharynx: Oropharynx is clear. Eyes: Extraocular Movements: Extraocular movements intact. Conjunctiva/sclera: Conjunctivae normal. Pupils: Pupils are equal, round, and reactive to light. Cardiovascular: Rate and Rhythm: Normal rate and regular rhythm. Pulses: Normal pulses. Heart sounds: Normal heart sounds. Pulmonary: Effort: Pulmonary effort is normal. Breath sounds: Normal breath sounds. Musculoskeletal: Cervical back: Normal range of motion and neck supple. Skin: General: Skin is warm and dry. Capillary Refill: Capillary refill takes less than 2 seconds. Neurological: General: No focal deficit present. Mental Status: He is alert and oriented to person, place, and time. Psychiatric: Mood and Affect: Mood normal. Behavior: Behavior normal. Thought Content: Thought content normal. Judgment: Judgment normal. Assessment and Plan Physical exam findings as noted above. Rapid strep test is negative. Patient was provided with a prescription for prednisone 20 mg and supportive care instructions were discussed. Patient verbalizes clear understanding of same. CLINICAL IMPRESSION: Acute Pharyngitis ASSESSMENT/PLAN: 1. Sore throat - ICD9: 462, ICD10: J02.9 (primary diagnosis) - STREP A MOLECULAR (POC) 2. Acute pharyngitis, unspecified etiology - ICD9: 462, ICD10: J02.9 - PREDNISONE 20 MG TABLET Deshawn Griggs PA-C documented in this encounter [facility] [place] 08-21-2024 History of Present illness Narrative This is a 68 year old male who presents today with: Patient presents with: 6 Month Exam HISTORY OF PRESENT ILLNESS: Bonny Redding Jr. is a 68 year old male. Patient presents with: 6 Month Exam 6 month follow up Lipids/glucose: Taking Atorvastatin daily and aspirin 81 mg daily. A1C went from 5.7 to 5.8. Watching diet: Reports he needs to do more. HTN: Taking losartan 100 mg daily. Not currently checking blood pressure at home. Denies chest pain, palpitations, dizziness, or edema. Following with cardiology, Dr. Lake for nonwork rheumatic aortic valve stenosis, aortic valve replacement, bradycardia.Pt hx of surgical aortic valve replacement with 27 mm Silvia-Saleh valve by Dr. Spaulding 11/2017 JULIET: Using CPAP, tolerating well. Receives supplies through Status Overload. Had right shoulder surgery in March 2024. ED: Taking Cialis 20 mg daily as needed. PSA: Would like evaluated Colonoscopy: Due at this time. Vaccines: Does not want at this time PAST MEDICAL HISTORY: PAST MEDICAL HISTORY Diagnosis Date Aortic stenosis with bicuspid valve 03/01/2015 Benign neoplasm of colon Chronic cough 05/16/2020 No resolution when ACEi stopped. Negative methecholine challenge 09/2020. Coronary artery disease Essential hypertension, benign 15 yr Obesity, unspecified Other and unspecified hyperlipidemia 15 yrs Peripheral neuropathy 11/29/2014 Personal history of colonic polyps Snoring Unspecified sleep apnea 2007 uses CPAP Vitamin D deficiency 2017 PAST SURGICAL HISTORY Procedure Laterality Date CATARACT EXTRACTION HX 2013 COLONOSCOPY FLX DX W/COLLJ SPEC WHEN PFRMD 08/31/2007 Colonoscopy COLONOSCOPY FLX DX W/COLLJ SPEC WHEN PFRMD N/A 10/12/2016 COLONOSCOPY W/BIOPSY SINGLE/MULTIPLE 07/20/2011 EXC LESION TDN SHTH/JT CAPSL HAND/FNGR 02/24/2013 Excision ganglion cyst left middle finger HEART SURGERY HX LAPAROSCOPY SURG RPR INITIAL INGUINAL HERNIA 05/17/2008 RIGHT PAST SURGICAL HISTORY OF tonsils and adenoids removed PAST SURGICAL HISTORY OF hernia PAST SURGICAL HISTORY OF 04/18/2008 right meniscus repair PAST SURGICAL HISTORY OF 07/2010 right foot surgery PAST SURGICAL HISTORY OF Right 07/28/2022 Right carpometacarpal arthroplasty with flexor carpi radialis interposition, first dorsal compartment tenosynovectomy right partial trapezodi excision RPR UMBILICAL HRNA 5 YRS/> REDUCIBLE 05/17/2008 SEPTOPLASTY/SUBMUCOUS RESECJ W/WO CARTILAGE GRF 2004 Septoplasty TOTAL KNEE REPLACEMENT Left 11/13/2022 Dr. Jackson Mera TOTAL KNEE REPLACEMENT Right 02/19/2023 ALLERGIES Patient has no known allergies. MEDICATIONS Current Outpatient Medications Medication Sig fladvfhp-tvvplsdrx-bxzzgajjkuyxsp (CORTISPORIN) 3.5-10,000-1 mg/mL-unit/mL-% otic suspension Use 3 Drops in the right ear four times daily. atorvastatin (LIPITOR) 20 mg tablet Take 1 tablet by mouth once daily. amLODIPine (NORVASC) 5 mg tablet Take 1 tablet by mouth once daily. Tadalafil (CIALIS) 20 mg tablet Take 1 tablet by mouth as needed. losartan (COZAAR) 100 mg tablet Take 1 tablet by mouth once daily. Amoxicillin 500 mg tablet Take 4 pills day of dental appointment OTC PRODUCT Vitamin D 500mg daily aspirin 81 mg chewable tablet Take 2 tablets by mouth once daily. No current facility-administered medications for this visit. FAMILY HISTORY Problem Relation Age of Onset Alzheimer's Disease Mother age 76-COPD COPD Mother other (Hypertension, Hyperlipidemia) Mother Coronary Artery Disease Father 60 valve replacement Prostate Cancer Father other (PARKINSON) Father Prostate Cancer Paternal Uncle Prostate Cancer Maternal Grandfather Hypertension Sister Social History Tobacco Use Smoking status: Never Smokeless tobacco: Never Tobacco comments: ETS in childhood home, motrher smoker. Vaping Use Vaping status: Never Used Substance Use Topics Alcohol use: No Drug use: No REVIEW OF SYSTEMS GENERAL: No weight loss, malaise or fevers/chills HEENT: Negative for frequent or significant headaches, No changes in hearing or vision. NECK: Negative for lumps, goiter, pain and significant neck swelling RESPIRATORY: Negative for cough, hemoptysis, wheezing, dyspnea or shortness of breath CARDIOVASCULAR: Negative for chest pain, leg swelling, orthopnea, or palpitations GI: No nausea, vomiting, or diarrhea/constipation. No hematochezia/melena. No heartburn or reflux symptoms. : No history of dysuria, frequency or incontinence MUSCULOSKELETAL: Negative for joint pain or swelling. SKIN: Negative for lesions, rash, and itching ENDOCRINE: Negative for cold or heat intolerance, polyuria, polydipsia and goiter NEURO: No history of headaches, syncope, paralysis, seizures or tremors MOOD: Negative for depression, anxiety, or suicidal ideation. EXAM: BP 160/90 Pulse 97 Resp 16 Wt (!) 143.8 kg (317 lb 0.3 oz) SpO2 97% BMI 43.00 kg/m PHYSICAL EXAM: General Appearance: Well appearing, alert, in no acute distress, well-hydrated, well nourished.. Skin: Skin color, texture, turgor normal, no suspicious rashes or lesions. Eyes: Anicteric sclera. Extraocular movements are intact. . Ears: External ears normal, canals clear. Lungs: Lungs clear to auscultation. No wheezing, rhonchi, rales.. Heart: RRR without murmur, gallop, or rubs. No ectopy. Extremities: No deformities, edema, skin discoloration, clubbing or cyanosis. Good capillary refill. . Peripheral Pulses: Normal, Capillary refill <2secs, strong peripheral pulses, Pulses palpable. Neurologic: Gait normal. Sensation grossly intact.. ASSESSMENT/PLAN: 1. Essential hypertension, benign - ICD9: 401.1, ICD10: I10 (primary diagnosis) - Uncontrolled - Continue current medications - Recommend home blood pressure monitoring, to bring results to next visit - Encouraged sodium restriction, DASH or Mediterranean diet - Recommend regular aerobic exercise 2. Hyperlipidemia LDL goal <130 - ICD9: 272.4, ICD10: E78.5 - Uncontrolled - Continue current medications - Counseled on healthy diet and regular exercise - LIPID PANEL BASIC 3. 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 - ICD9: 414.01, ICD10: I25.10 - Continue to keep scheduled appointments with cardiology - Get repeat labs completed in 6 months - COMPREHENSIVE METABOLIC PANEL 4. History of aortic valve replacement with bioprosthetic valve - ICD9: V42.2, ICD10: Z95.3 - Stable, continue to follow with cardiology 5. Obstructive sleep apnea syndrome - ICD9: 327.23, ICD10: G47.33 - Stable, continue to use CPAP 6. ED (erectile dysfunction) of organic origin - ICD9: 607.84, ICD10: N52.9 - Stable, continue to take current medications 7. Elevated glucose - ICD9: 790.29, ICD10: R73.09 - Get repeat labs completed in 6 months - Work on lifestyle changes at home - HEMOGLOBIN A1C 8. Screening for colon cancer - ICD9: V76.51, ICD10: Z12.11 - CONSULT TO GENERAL SURGERY 9. Screening for prostate cancer - ICD9: V76.44, ICD10: Z12.5 - PSA/PROSTATE SPECIFIC ANTIGEN SCREENING Follow up in 6 months Discussed treatment plan and patient voices understanding. Patient's questions answered appropriately. Medications and potential side effects were discussed and patient voices understanding. Shayy Singh APRN.DILIP This note was partially generated using [employer] voice recognition system. Note was reviewed for accuracy. There may be minor misspellings or grammar miscues with [employer] voice recognition. documented in this encounter [facility] [place] 08-21-2024 Note HNO ID: [id number] Author: SHAYY SINGH APRN.CNP Service: ? Author Type: Nurse Practitioner Type: Progress Notes Filed: 08/21/2024 10:26 Note Text: This is a 68 year old male who presents today with: Patient presents with: 6 Month Exam HISTORY OF PRESENT ILLNESS: Bnony Redding Jr. is a 68 year old male. Patient presents with: 6 Month Exam 6 month follow up Lipids/glucose: Taking Atorvastatin daily and aspirin 81 mg daily. A1C went from 5.7 to 5.8. Watching diet: Reports he needs to do more. HTN: Taking losartan 100 mg daily. Not currently checking blood pressure at home. Denies chest pain, palpitations, dizziness, or edema. Following with cardiology, Dr. Lake for nonwork rheumatic aortic valve stenosis, aortic valve replacement, bradycardia.Pt hx of surgical aortic valve replacement with 27 mm Silvia-Saleh valve by Dr. Spaulding 11/2017 JULIET: Using CPAP, tolerating well. Receives supplies through [facility]. Had right shoulder surgery in March 2024. ED: Taking Cialis 20 mg daily as needed. PSA: Would like evaluated Colonoscopy: Due at this time. Vaccines: Does not want at this time PAST MEDICAL HISTORY: PAST MEDICAL HISTORY Diagnosis Date Aortic stenosis with bicuspid valve 03/01/2015 Benign neoplasm of colon Chronic cough 05/16/2020 No resolution when ACEi stopped. Negative methecholine challenge 09/2020. Coronary artery disease Essential hypertension, benign 15 yr Obesity, unspecified Other and unspecified hyperlipidemia 15 yrs Peripheral neuropathy 11/29/2014 Personal history of colonic polyps Snoring Unspecified sleep apnea 2007 uses CPAP Vitamin D deficiency 2018 PAST SURGICAL HISTORY Procedure Laterality Date CATARACT EXTRACTION HX 2013 COLONOSCOPY FLX DX W/COLLJ SPEC WHEN PFRMD 08/31/2007 Colonoscopy COLONOSCOPY FLX DX W/COLLJ SPEC WHEN PFRMD N/A 10/12/2016 COLONOSCOPY W/BIOPSY SINGLE/MULTIPLE 07/20/2011 EXC LESION TDN SHTH/JT CAPSL HAND/FNGR 02/24/2013 Excision ganglion cyst left middle finger HEART SURGERY HX LAPAROSCOPY SURG RPR INITIAL INGUINAL HERNIA 05/17/2008 RIGHT PAST SURGICAL HISTORY OF tonsils and adenoids removed PAST SURGICAL HISTORY OF hernia PAST SURGICAL HISTORY OF 04/18/2008 right meniscus repair PAST SURGICAL HISTORY OF 07/2010 right foot surgery PAST SURGICAL HISTORY OF Right 07/28/2022 Right carpometacarpal arthroplasty with flexor carpi radialis interposition, first dorsal compartment tenosynovectomy right partial trapezodi excision RPR UMBILICAL HRNA 5 YRS/> REDUCIBLE 05/17/2008 SEPTOPLASTY/SUBMUCOUS RESECJ W/WO CARTILAGE GRF 2004 Septoplasty TOTAL KNEE REPLACEMENT Left 11/13/2022 Dr. Jackson Mera TOTAL KNEE REPLACEMENT Right 02/19/2023 ALLERGIES Patient has no known allergies. MEDICATIONS Current Outpatient Medications Medication Sig ilfodnli-jgctikpss-tmpsqfoerwpahs (CORTISPORIN) 3.5-10,000-1 mg/mL-unit/mL-% otic suspension Use 3 Drops in the right ear four times daily. atorvastatin (LIPITOR) 20 mg tablet Take 1 tablet by mouth once daily. amLODIPine (NORVASC) 5 mg tablet Take 1 tablet by mouth once daily. Tadalafil (CIALIS) 20 mg tablet Take 1 tablet by mouth as needed. losartan (COZAAR) 100 mg tablet Take 1 tablet by mouth once daily. Amoxicillin 500 mg tablet Take 4 pills day of dental appointment OTC PRODUCT Vitamin D 500mg daily aspirin 81 mg chewable tablet Take 2 tablets by mouth once daily. No current facility-administered medications for this visit. FAMILY HISTORY Problem Relation Age of Onset Alzheimer's Disease Mother age 76-COPD COPD Mother other (Hypertension, Hyperlipidemia) Mother Coronary Artery Disease Father 60 valve replacement Prostate Cancer Father other (PARKINSON) Father Prostate Cancer Paternal Uncle Prostate Cancer Maternal Grandfather Hypertension Sister Social History Tobacco Use Smoking status: Never Smokeless tobacco: Never Tobacco comments: ETS in childhood home, motrher smoker. Vaping Use Vaping status: Never Used Substance Use Topics Alcohol use: No Drug use: No REVIEW OF SYSTEMS GENERAL: No weight loss, malaise or fevers/chills HEENT: Negative for frequent or significant headaches, No changes in hearing or vision. NECK: Negative for lumps, goiter, pain and significant neck swelling RESPIRATORY: Negative for cough, hemoptysis, wheezing, dyspnea or shortness of breath CARDIOVASCULAR: Negative for chest pain, leg swelling, orthopnea, or palpitations GI: No nausea, vomiting, or diarrhea/constipation. No hematochezia/melena. No heartburn or reflux symptoms. : No history of dysuria, frequency or incontinence MUSCULOSKELETAL: Negative for joint pain or swelling. SKIN: Negative for lesions, rash, and itching ENDOCRINE: Negative for cold or heat intolerance, polyuria, polydipsia and goiter NEURO: No history of headaches, syncope, paralysis, seizures or tremors MOOD: Negative for depre (more content not included)... [facility] 08-21-2024 Instructions Shayy Singh APRN.CNP - 08/21/2024 9:53 AM EST Get repeat fasting labs prior to next visit Continue to take current medications Continue to eat a well balanced diet Consult placed for general surgery for colonoscopy Follow up in 6 months documented in this encounter [facility] [place] 07-20-2024 Note HNO ID: [id number] Author: LUZ COSTA APRN.BOARD WRITER Service: ? Author Type: Nurse Practitioner Type: Progress Notes Filed: 07/20/2024 18:06 Note Text: Subjective Patient with complaints of elbow swelling. Patient says it does not hurt at all. Patient says there is no decrease in range of motion. Patient says he fell about a week ago but he do not think he hit his elbow. Patient says he did have rotator cuff surgery several weeks ago but was cleared from that and has not had any complications from that. The history is provided by the patient. No language path was used. Review of Systems Constitutional: Negative. Skin: Negative. Objective Physical Exam Constitutional: Appearance: Normal appearance. HENT: Right Ear: There is impacted cerumen. Left Ear: There is impacted cerumen. Pulmonary: Effort: Pulmonary effort is normal. Musculoskeletal: Arms: Comments: Fluid-filled swelling in the area marked above. No redness no warmth range of motion intact. No pain. Neurological: Mental Status: He is alert. PAST MEDICAL HISTORY Diagnosis Date Aortic stenosis with bicuspid valve 03/01/2015 Benign neoplasm of colon Chronic cough 05/16/2020 No resolution when ACEi stopped. Negative methecholine challenge 09/2020. Coronary artery disease Essential hypertension, benign 15 yr Obesity, unspecified Other and unspecified hyperlipidemia 15 yrs Peripheral neuropathy 11/29/2014 Personal history of colonic polyps Snoring Unspecified sleep apnea 2007 uses CPAP Vitamin D deficiency 2018 PAST SURGICAL HISTORY Procedure Laterality Date CATARACT EXTRACTION HX 2014 COLONOSCOPY FLX DX W/COLLJ SPEC WHEN PFRMD 08/31/2007 Colonoscopy COLONOSCOPY FLX DX W/COLLJ SPEC WHEN PFRMD N/A 10/12/2016 COLONOSCOPY W/BIOPSY SINGLE/MULTIPLE 07/20/2011 EXC LESION TDN SHTH/JT CAPSL HAND/FNGR 02/24/2013 Excision ganglion cyst left middle finger HEART SURGERY HX LAPAROSCOPY SURG RPR INITIAL INGUINAL HERNIA 05/17/2008 RIGHT PAST SURGICAL HISTORY OF tonsils and adenoids removed PAST SURGICAL HISTORY OF hernia PAST SURGICAL HISTORY OF 04/18/2008 right meniscus repair PAST SURGICAL HISTORY OF 07/2010 right foot surgery PAST SURGICAL HISTORY OF Right 07/28/2022 Right carpometacarpal arthroplasty with flexor carpi radialis interposition, first dorsal compartment tenosynovectomy right partial trapezodi excision RPR UMBILICAL HRNA 5 YRS/> REDUCIBLE 05/17/2008 SEPTOPLASTY/SUBMUCOUS RESECJ W/WO CARTILAGE GRF 2004 Septoplasty TOTAL KNEE REPLACEMENT Left 11/13/2022 Dr. Jackson Mera TOTAL KNEE REPLACEMENT Right 02/19/2023 ALLERGIES Patient has no known allergies. MEDICATIONS atorvastatin (LIPITOR) 20 mg tablet Take 1 tablet by mouth once daily. amLODIPine (NORVASC) 5 mg tablet Take 1 tablet by mouth once daily. Tadalafil (CIALIS) 20 mg tablet Take 1 tablet by mouth as needed. losartan (COZAAR) 100 mg tablet Take 1 tablet by mouth once daily. OTC PRODUCT Vitamin D 500mg daily aspirin 81 mg chewable tablet Take 2 tablets by mouth once daily. bvhxbdnf-ddsqsrtgw-yfximeermodbod (CORTISPORIN) 3.5-10,000-1 mg/mL-unit/mL-% otic suspension Use 3 Drops in both ears four times daily. Amoxicillin 500 mg tablet Take 4 pills day of dental appointment FAMILY HISTORY Problem Relation Age of Onset Alzheimer's Disease Mother age 76-COPD COPD Mother other (Hypertension, Hyperlipidemia) Mother Coronary Artery Disease Father 60 valve replacement Prostate Cancer Father other (PARKINSON) Father Prostate Cancer Paternal Uncle Prostate Cancer Maternal Grandfather Hypertension Sister Social History Tobacco Use Smoking status: Never Smokeless tobacco: Never Tobacco comments: ETS in childhood home, motrher smoker. Vaping Use Vaping status: Never Used Substance Use Topics Alcohol use: No Drug use: No ASSESSMENT/PLAN: 1. Bilateral impacted cerumen - ICD9: 380.4, ICD10: H61.23 (primary diagnosis) TMs are visualized after nurse flushed ears. Left TM is within normal limits. Right TM is slightly irritated and canal seems swollen and flaky. Called in some Cortisporin to see if this helps. Patient was instructed to follow-up with dermatology if this does not work. - REMOVAL OF IMPACTED CERUMEN - INSTRUMENTATION 2. Olecranon bursitis of right elbow - ICD9: 726.33, ICD10: M70.21 Information off of up-to-date for patient. Patient was instructed about red flag symptoms to watch for such as increased pain redness warmth. Decreased range of motion. And to go to the ER if any of these occur. Okay with this care plan. Luz Costa APRN.BOARD WRITER [facility] 07-20-2024 History of Present illness Narrative Images from the original note were not included. Subjective Patient with complaints of elbow swelling. Patient says it does not hurt at all. Patient says there is no decrease in range of motion. Patient says he fell about a week ago but he do not think he hit his elbow. Patient says he did have rotator cuff surgery several weeks ago but was cleared from that and has not had any complications from that. The history is provided by the patient. No language path was used. Review of Systems Constitutional: Negative. Skin: Negative. Objective Physical Exam Constitutional: Appearance: Normal appearance. HENT: Right Ear: There is impacted cerumen. Left Ear: There is impacted cerumen. Pulmonary: Effort: Pulmonary effort is normal. Musculoskeletal: Arms: Comments: Fluid-filled swelling in the area marked above. No redness no warmth range of motion intact. No pain. Neurological: Mental Status: He is alert. PAST MEDICAL HISTORY Diagnosis Date Aortic stenosis with bicuspid valve 03/01/2015 Benign neoplasm of colon Chronic cough 05/16/2020 No resolution when ACEi stopped. Negative methecholine challenge 09/2020. Coronary artery disease Essential hypertension, benign 15 yr Obesity, unspecified Other and unspecified hyperlipidemia 15 yrs Peripheral neuropathy 11/29/2014 Personal history of colonic polyps Snoring Unspecified sleep apnea 2007 uses CPAP Vitamin D deficiency 2018 PAST SURGICAL HISTORY Procedure Laterality Date CATARACT EXTRACTION HX 2014 COLONOSCOPY FLX DX W/COLLJ SPEC WHEN PFRMD 08/31/2007 Colonoscopy COLONOSCOPY FLX DX W/COLLJ SPEC WHEN PFRMD N/A 10/12/2016 COLONOSCOPY W/BIOPSY SINGLE/MULTIPLE 07/20/2011 EXC LESION TDN SHTH/JT CAPSL HAND/FNGR 02/24/2013 Excision ganglion cyst left middle finger HEART SURGERY HX LAPAROSCOPY SURG RPR INITIAL INGUINAL HERNIA 05/17/2008 RIGHT PAST SURGICAL HISTORY OF tonsils and adenoids removed PAST SURGICAL HISTORY OF hernia PAST SURGICAL HISTORY OF 04/18/2008 right meniscus repair PAST SURGICAL HISTORY OF 07/2010 right foot surgery PAST SURGICAL HISTORY OF Right 07/28/2022 Right carpometacarpal arthroplasty with flexor carpi radialis interposition, first dorsal compartment tenosynovectomy right partial trapezodi excision RPR UMBILICAL HRNA 5 YRS/> REDUCIBLE 05/17/2008 SEPTOPLASTY/SUBMUCOUS RESECJ W/WO CARTILAGE GRF 2004 Septoplasty TOTAL KNEE REPLACEMENT Left 11/13/2022 Dr. Jackson Mera TOTAL KNEE REPLACEMENT Right 02/19/2023 ALLERGIES Patient has no known allergies. MEDICATIONS atorvastatin (LIPITOR) 20 mg tablet Take 1 tablet by mouth once daily. amLODIPine (NORVASC) 5 mg tablet Take 1 tablet by mouth once daily. Tadalafil (CIALIS) 20 mg tablet Take 1 tablet by mouth as needed. losartan (COZAAR) 100 mg tablet Take 1 tablet by mouth once daily. OTC PRODUCT Vitamin D 500mg daily aspirin 81 mg chewable tablet Take 2 tablets by mouth once daily. ckitouwr-akyasznjs-clkelajbobktul (CORTISPORIN) 3.5-10,000-1 mg/mL-unit/mL-% otic suspension Use 3 Drops in both ears four times daily. Amoxicillin 500 mg tablet Take 4 pills day of dental appointment FAMILY HISTORY Problem Relation Age of Onset Alzheimer's Disease Mother age 76-COPD COPD Mother other (Hypertension, Hyperlipidemia) Mother Coronary Artery Disease Father 60 valve replacement Prostate Cancer Father other (PARKINSON) Father Prostate Cancer Paternal Uncle Prostate Cancer Maternal Grandfather Hypertension Sister Social History Tobacco Use Smoking status: Never Smokeless tobacco: Never Tobacco comments: ETS in childhood home, motrher smoker. Vaping Use Vaping status: Never Used Substance Use Topics Alcohol use: No Drug use: No ASSESSMENT/PLAN: 1. Bilateral impacted cerumen - ICD9: 380.4, ICD10: H61.23 (primary diagnosis) TMs are visualized after nurse flushed ears. Left TM is within normal limits. Right TM is slightly irritated and canal seems swollen and flaky. Called in some Cortisporin to see if this helps. Patient was instructed to follow-up with dermatology if this does not work. - REMOVAL OF IMPACTED CERUMEN - INSTRUMENTATION 2. Olecranon bursitis of right elbow - ICD9: 726.33, ICD10: M70.21 Information off of up-to-date for patient. Patient was instructed about red flag symptoms to watch for such as increased pain redness warmth. Decreased range of motion. And to go to the ER if any of these occur. Okay with this care plan. Luz Costa APRN.BOARD WRITER documented in this encounter [facility] [place] 05-06-2024 Note HNO ID: [id number] Author: JARVIS LAKE MD Service: ? Author Type: Physician Type: Progress Notes Filed: 05/06/2024 10:25 Note Text: [facility] [place] [facility] Department of Cardiovascular Medicine SECTION OF CLINICAL CARDIOLOGY OUTPATIENT VISIT DATE May 02, 2024 OUTPATIENT VISIT TYPE ESTABLISHED PRIMARY CARE PHYSICIAN: Deshawn Noel [address] [place] [address] REFERRING PHYSICIAN: No referring provider defined for this encounter. CHIEF COMPLAINT: s/p AVR HISTORY OF PRESENT ILLNESS: Mr. Redding is a 68 year old male who presents today for a cardiovascular medicine follow-up visit. He is s/p AVR and has been doing well. Unfortunately he had a fall at work and dislocated his shoulder. He will correction of the labrum for the same. He has put on some weight. He has no clinical complaints. He denies chest pain, shortness of breath, orthopnea, cough, edema, palpitations, PND, lightheadedness or syncope. PAST CARDIAC HISTORY: PAST MEDICAL HISTORY Diagnosis Date Aortic stenosis with bicuspid valve 03/01/2015 Benign neoplasm of colon Chronic cough 05/16/2020 No resolution when ACEi stopped. Negative methecholine challenge 09/2020. Coronary artery disease Essential hypertension, benign 15 yr Obesity, unspecified Other and unspecified hyperlipidemia 15 yrs Peripheral neuropathy 11/29/2014 Personal history of colonic polyps Snoring Unspecified sleep apnea 2007 uses CPAP Vitamin D deficiency 2018 PAST SURGICAL HISTORY Procedure Laterality Date CATARACT EXTRACTION HX 2014 COLONOSCOPY FLX DX W/COLLJ SPEC WHEN PFRMD 08/31/2007 Colonoscopy COLONOSCOPY FLX DX W/COLLJ SPEC WHEN PFRMD N/A 10/12/2016 COLONOSCOPY W/BIOPSY SINGLE/MULTIPLE 07/20/2011 EXC LESION TDN SHTH/JT CAPSL HAND/FNGR 02/24/2013 Excision ganglion cyst left middle finger HEART SURGERY HX LAPAROSCOPY SURG RPR INITIAL INGUINAL HERNIA 05/17/2008 RIGHT PAST SURGICAL HISTORY OF tonsils and adenoids removed PAST SURGICAL HISTORY OF hernia PAST SURGICAL HISTORY OF 04/18/2008 right meniscus repair PAST SURGICAL HISTORY OF 07/2010 right foot surgery PAST SURGICAL HISTORY OF Right 07/28/2022 Right carpometacarpal arthroplasty with flexor carpi radialis interposition, first dorsal compartment tenosynovectomy right partial trapezodi excision RPR UMBILICAL HRNA 5 YRS/> REDUCIBLE 05/17/2008 SEPTOPLASTY/SUBMUCOUS RESECJ W/WO CARTILAGE GRF 2004 Septoplasty TOTAL KNEE REPLACEMENT Left 11/13/2022 Dr. Jackson Mera TOTAL KNEE REPLACEMENT Right 02/19/2023 SOCIAL HISTORY Social History Tobacco Use Smoking status: Never Smokeless tobacco: Never Tobacco comments: ETS in childhood home, motrher smoker. Vaping Use Vaping status: Never Used Substance Use Topics Alcohol use: No Drug use: No FAMILY HISTORY Problem Relation Age of Onset Alzheimer's Disease Mother age 76-COPD COPD Mother other (Hypertension, Hyperlipidemia) Mother Coronary Artery Disease Father 60 valve replacement Prostate Cancer Father other (PARKINSON) Father Prostate Cancer Paternal Uncle Prostate Cancer Maternal Grandfather Hypertension Sister Patient-Entered Questionnaire Scores 04/06/2023 04/27/2024 Patient Entered Questionnaires Average hours of sleep per day 8 8 Diagnosed with Sleep Apnea Yes Average hours of PAP use per night 8 04/06/2023 04/27/2024 Insomnia Severity Index (ALEXANDER) Score 1 (No clinically significant insomnia) Incomplete 04/06/2023 08/16/2023 02/13/2024 PROMIS Global Health - (T-Scores - the mean of general population = 50. Five points is a clinically meaningful difference.) Physical T-Score 57.7 57.7 54.1 Mental T-Score 62.5 56 59 ALLERGIES: ALLERGIES Not on File MEDICATIONS: Tadalafil (CIALIS) 20 mg tablet Take 1 tablet by mouth as needed. losartan (COZAAR) 100 mg tablet Take 1 tablet by mouth once daily. simvastatin (ZOCOR) 20 mg tablet Take 1 tablet by mouth daily at bedtime. Amoxicillin 500 mg tablet Take 4 pills day of dental appointment OTC PRODUCT Vitamin D 500mg daily aspirin 81 mg chewable tablet Take 2 tablets by mouth once daily. amLODIPine (NORVASC) 5 mg tablet Take 1 tablet by mouth once daily. lbkckjyr-ilwgvcclb-ljiejkedkxarvb (CORTISPORIN) 3.5-10,000-1 mg/mL-unit/mL-% otic suspension Use 3 Drops in both ears four times daily. PHYSICAL EXAMINATION: BP 169/97 (BP Site: Left Arm, BP Position: Sitting, BP Cuff Size: Regular Adult) Pulse (!) 57 Resp 16 Ht 182.9 cm (6') Wt (!) 143.3 kg (316 lb) SpO2 98% BMI 42.86 kg/m? General: Well appearing, in no acute distress. Skin: No clubbing, no cyanosis. Eyes: Extra ocular movements intact Oropharynx: Teeth in good repair. Neck: No jugular venous distention, no carotid bruits, carotids have a normal upstroke, no palpable thyromegaly. Lungs: Clear to auscultation rickey (more content not included)... [facility] 05-06-2024 History of Present illness Narrative Images from the original note were not included. Heart, V[facility] [place] [facility] Department of Cardiovascular Medicine SECTION OF CLINICAL CARDIOLOGY OUTPATIENT VISIT DATE May 02, 2024 OUTPATIENT VISIT TYPE ESTABLISHED PRIMARY CARE PHYSICIAN: Deshawn Noel [address] [place] [address] REFERRING PHYSICIAN: No referring provider defined for this encounter. CHIEF COMPLAINT: s/p AVR HISTORY OF PRESENT ILLNESS: Mr. Redding is a 68 year old male who presents today for a cardiovascular medicine follow-up visit. He is s/p AVR and has been doing well. Unfortunately he had a fall at work and dislocated his shoulder. He will correction of the labrum for the same. He has put on some weight. He has no clinical complaints. He denies chest pain, shortness of breath, orthopnea, cough, edema, palpitations, PND, lightheadedness or syncope. PAST CARDIAC HISTORY: PAST MEDICAL HISTORY Diagnosis Date Aortic stenosis with bicuspid valve 03/01/2015 Benign neoplasm of colon Chronic cough 05/16/2020 No resolution when ACEi stopped. Negative methecholine challenge 09/2020. Coronary artery disease Essential hypertension, benign 15 yr Obesity, unspecified Other and unspecified hyperlipidemia 15 yrs Peripheral neuropathy 11/29/2014 Personal history of colonic polyps Snoring Unspecified sleep apnea 2007 uses CPAP Vitamin D deficiency 2018 PAST SURGICAL HISTORY Procedure Laterality Date CATARACT EXTRACTION HX 2013 COLONOSCOPY FLX DX W/COLLJ SPEC WHEN PFRMD 08/31/2007 Colonoscopy COLONOSCOPY FLX DX W/COLLJ SPEC WHEN PFRMD N/A 10/12/2016 COLONOSCOPY W/BIOPSY SINGLE/MULTIPLE 07/20/2011 EXC LESION TDN SHTH/JT CAPSL HAND/FNGR 02/24/2013 Excision ganglion cyst left middle finger HEART SURGERY HX LAPAROSCOPY SURG RPR INITIAL INGUINAL HERNIA 05/17/2008 RIGHT PAST SURGICAL HISTORY OF tonsils and adenoids removed PAST SURGICAL HISTORY OF hernia PAST SURGICAL HISTORY OF 04/18/2008 right meniscus repair PAST SURGICAL HISTORY OF 07/2010 right foot surgery PAST SURGICAL HISTORY OF Right 07/28/2022 Right carpometacarpal arthroplasty with flexor carpi radialis interposition, first dorsal compartment tenosynovectomy right partial trapezodi excision RPR UMBILICAL HRNA 5 YRS/> REDUCIBLE 05/17/2008 SEPTOPLASTY/SUBMUCOUS RESECJ W/WO CARTILAGE GRF 2005 Septoplasty TOTAL KNEE REPLACEMENT Left 11/13/2022 Dr. Jackson Mera TOTAL KNEE REPLACEMENT Right 02/19/2023 SOCIAL HISTORY Social History Tobacco Use Smoking status: Never Smokeless tobacco: Never Tobacco comments: ETS in childhood home, motrher smoker. Vaping Use Vaping status: Never Used Substance Use Topics Alcohol use: No Drug use: No FAMILY HISTORY Problem Relation Age of Onset Alzheimer's Disease Mother age 76-COPD COPD Mother other (Hypertension, Hyperlipidemia) Mother Coronary Artery Disease Father 60 valve replacement Prostate Cancer Father other (PARKINSON) Father Prostate Cancer Paternal Uncle Prostate Cancer Maternal Grandfather Hypertension Sister Patient-Entered Questionnaire Scores 04/06/2023 04/27/2024 Patient Entered Questionnaires Average hours of sleep per day 8 8 Diagnosed with Sleep Apnea Yes Average hours of PAP use per night 8 04/06/2023 04/27/2024 Insomnia Severity Index (ALEXANDER) Score 1 (No clinically significant insomnia) Incomplete 04/06/2023 08/16/2023 02/13/2024 PROMIS Global Health - (T-Scores - the mean of general population = 50. Five points is a clinically meaningful difference.) Physical T-Score 57.7 57.7 54.1 Mental T-Score 62.5 56 59 ALLERGIES: ALLERGIES Not on File MEDICATIONS: Tadalafil (CIALIS) 20 mg tablet Take 1 tablet by mouth as needed. losartan (COZAAR) 100 mg tablet Take 1 tablet by mouth once daily. simvastatin (ZOCOR) 20 mg tablet Take 1 tablet by mouth daily at bedtime. Amoxicillin 500 mg tablet Take 4 pills day of dental appointment OTC PRODUCT Vitamin D 500mg daily aspirin 81 mg chewable tablet Take 2 tablets by mouth once daily. amLODIPine (NORVASC) 5 mg tablet Take 1 tablet by mouth once daily. snhstkve-xpnuwwwab-appaeukvadsfhu (CORTISPORIN) 3.5-10,000-1 mg/mL-unit/mL-% otic suspension Use 3 Drops in both ears four times daily. PHYSICAL EXAMINATION: BP 169/97 (BP Site: Left Arm, BP Position: Sitting, BP Cuff Size: Regular Adult) Pulse (!) 57 Resp 16 Ht 182.9 cm (6') Wt (!) 143.3 kg (316 lb) SpO2 98% BMI 42.86 kg/m General: Well appearing, in no acute distress. Skin: No clubbing, no cyanosis. Eyes: Extra ocular movements intact Oropharynx: Teeth in good repair. Neck: No jugular venous distention, no carotid bruits, carotids have a normal upstroke, no palpable thyromegaly. Lungs: Clear to auscultation bilaterally, no wheezing or rhonchi. Heart: Regular rhythm, PMI not displaced, S1, S2 normal, no S3, no S4, no heaves, no rub and no murmur. Abdomen: Soft, nontender, bowel sounds normal, no palpable organomegaly, no bruits. Extremities: No peripheral edema . Grade 2/4 distal pulses bilaterally. Neuro: Oriented to person, place and time, alert, cooperative, gait coordinated. CARDIOVASCULAR MEDICINE TESTING: EKG Diagnosis: SINUS BRADYCARDIA INCOMPLETE LEFT BUNDLE BRANCH BLOCK BORDERLINE ECG Latest Ref [facility] 02/14/2024 Protein, Total 6.3 - 8.0 g/dL 7.0 Albumin 3.9 - 4.9 g/dL 4.4 Calcium 8.5 - 10.2 mg/dL 9.7 Bilirubin, Total 0.2 - 1.3 mg/dL 1.2 Alkaline Phosphatase 38 - 113 U/L 86 AST 14 - 40 U/L 35 ALT 10 - 54 U/L 38 Glucose 74 - 99 mg/dL 119 (H) BUN 9 - 24 mg/dL 20 Creatinine 0.73 - 1.22 mg/dL 1.09 Sodium 136 - 144 mmol/L 140 Potassium 3.7 - 5.1 mmol/L 4.3 Chloride 98 - 107 mmol/L 105 CO2 22 - 30 mmol/L 24 Anion Gap 8 - 15 mmol/L 11 eGFR >=60 mL/min/1.73m 74 Cholesterol, Total <200 mg/dL 222 (H) Triglyceride <150 mg/dL 96 HDL Cholesterol >39 mg/dL 42 Non HDL Cholesterol <130 mg/dL 180 (H) Fasting Time hrs 15 VLDL Cholesterol <30 mg/dL 19 TC:HDL Ratio <5.10 5.29 (H) LDL Cholesterol <100 mg/dL 161 (H) LDL:HDL Ratio <2.54 3.83 (H) Hemoglobin A1C 4.3 - 5.6 % 5.7 (H) Estimated Average Glucose mg/dL 117 Legend: (H) High IMPRESSION: Mr. Redding is a 68 year old male s/p AVR PLAN AND RECOMMENDATIONS: Shoulder surgery: he can proceed with the same without further evaluation Prosthetic valve: functioning well, antibiotic prophylaxis BP: monitor at home, initiated amlodipine, follow up with PCP and have this up-titrated as needed, dietary discretion, consideration of pharmacotherapy for the same Lipid levels have worsened, dietary discretion, will change to atorvastatin. CONTACT INFORMATION: documented in this encounter [facility] 04-12-2024 Telephone encounter Note Form completed with gia hurtado, given to administrative director for faxing. Latisha Kemp RN [facility] 04-12-2024 Miscellaneous Notes Form completed with gia hurtado, given to administrative director for faxing. Latisha Kemp RN Form printed and placed in Dr Lake's folder. Tatyana Mcdonald RN Images from the original note were not included. documented in this encounter [facility] 04-07-2024 Telephone encounter Note Faxed to number provided on form. [facility] 04-07-2024 Miscellaneous Notes Faxed to number provided on form. Form signed Ye Sharma APRN.DILIP [facility] sends Request for Surgical Clearance form stating that pt shoulder surgery was cancelled due to Hypoxemia prior to surgery per anesthesia. See form, complete and fax back. Ana Baltazar MA documented in this encounter [facility] 04-07-2024 Telephone encounter Note Form signed Ye Sharma APRN.DILIP [facility] Work Phone: 04-07-2024 Note HNO ID: [id number] Author: YE SHARMA APRN.CNP Service: ? Author Type: Nurse Practitioner Type: Progress Notes Filed: 04/07/2024 11:09 Note Text: Chief Complaint Patient presents with: Pre-Op Exam: Shoulder surgery cancelled for hypoxia Ear Problem: Possible still has infection in right ear, seen [facility] about 2 weeks ago. Currently has cough HPI Bonny Redding Jr. is a 68 year old male who presents here today for pre-operative exam. Patient had surgery on 03/29. Patient discussing that he was at the outpatient surgery center. He was having surgery on his right shoulder. Was given a block. Wheeled into suite, asked to over to the surgical table. Struggled getting over there but to having a block on his right arm. SpO2 went down to 60%. They had to give him oxygen. It returned to normal and surgery was cancelled. The surgeon hypothesized that the block made his diaphragm numb. He was previously cleared by his PCP for the surgery. He had paperwork for surgical approval sent to his cigarette making examiner. Has appointment in late April. He denies any chest pain. His believes that the patient becomes easily with movement. He does admit that she has some complaints of shortness of breath with exertion. Leavesthat has been ongoing for a few months. Gives the example of using a workout machine prior that he now struggles with doing the same exercise. He has been checking his SpO2 at home a few times a day. SpO2 always greater than 95%. He has a history of aortic valve replacement in 2018, CAD. Uses a CPAP for JULIET with benefit. He has a history of chronic cough. No resolution when ANN inhibitor was stopped. Negative methecholine challenge in 09/2020. He states that he has chronic excessive phlegm. Usually in his throat. Can be worse after meals. Denies any GERD. Recently evaluated in [facility] for [facility] pain. Large amount of cerumen removed, right ear was treated prophylactically with antibiotic for otitis externa. Denies any fevers or pain. Just would like the ears checked. Past medical history, appointments, medications, allergies reviewed. Previous Medical History PAST MEDICAL HISTORY Diagnosis Date Aortic stenosis with bicuspid valve 03/01/2015 Benign neoplasm of colon Chronic cough 05/16/2020 No resolution when ACEi stopped. Negative methecholine challenge 09/2020. Coronary artery disease Essential hypertension, benign 15 yr Obesity, unspecified Other and unspecified hyperlipidemia 15 yrs Peripheral neuropathy 11/29/2014 Personal history of colonic polyps Snoring Unspecified sleep apnea 2007 uses CPAP Vitamin D deficiency 2018 Previous Surgical History PAST SURGICAL HISTORY Procedure Laterality Date CATARACT EXTRACTION HX 2014 COLONOSCOPY FLX DX W/COLLJ SPEC WHEN PFRMD 08/31/2007 Colonoscopy COLONOSCOPY FLX DX W/COLLJ SPEC WHEN PFRMD N/A 10/12/2016 COLONOSCOPY W/BIOPSY SINGLE/MULTIPLE 07/20/2011 EXC LESION TDN SHTH/JT CAPSL HAND/FNGR 02/24/2013 Excision ganglion cyst left middle finger HEART SURGERY HX LAPAROSCOPY SURG RPR INITIAL INGUINAL HERNIA 05/17/2008 RIGHT PAST SURGICAL HISTORY OF tonsils and adenoids removed PAST SURGICAL HISTORY OF hernia PAST SURGICAL HISTORY OF 04/18/2008 right meniscus repair PAST SURGICAL HISTORY OF 07/2010 right foot surgery PAST SURGICAL HISTORY OF Right 07/28/2022 Right carpometacarpal arthroplasty with flexor carpi radialis interposition, first dorsal compartment tenosynovectomy right partial trapezodi excision RPR UMBILICAL HRNA 5 YRS/> REDUCIBLE 05/17/2008 SEPTOPLASTY/SUBMUCOUS RESECJ W/WO CARTILAGE GRF 2004 Septoplasty TOTAL KNEE REPLACEMENT Left 11/13/2022 Dr. Jackson Mera TOTAL KNEE REPLACEMENT Right 02/19/2023 Family History FAMILY HISTORY Problem Relation Age of Onset Alzheimer's Disease Mother age 76-COPD COPD Mother other (Hypertension, Hyperlipidemia) Mother Coronary Artery Disease Father 60 valve replacement Prostate Cancer Father other (PARKINSON) Father Prostate Cancer Paternal Uncle Prostate Cancer Maternal Grandfather Hypertension Sister Patient Allergies ALLERGIES No Known Allergies Current Medications Current Outpatient Medications on File Prior to Visit Medication Sig bajkvjki-blhxhpkyo-ptrrxrjbqtnfvl (CORTISPORIN) 3.5-10,000-1 mg/mL-unit/mL-% otic suspension Use 3 Drops in both ears four times daily. Tadalafil (CIALIS) 20 mg tablet Take 1 tablet by mouth as needed. losartan (COZAAR) 100 mg tablet Take 1 tablet by mouth once daily. simvastatin (ZOCOR) 20 mg tablet Take 1 tablet by mouth daily at bedtime. Amoxicillin 500 mg tablet Take 4 pills day of dental appointment OTC PRODUCT Vitamin D 500mg daily aspirin 81 mg chewable tablet Take 2 tablets by mouth once daily. No current facility-administered medications on file prior to visit. Social History Social History Tobacco Use Smoking status: Never Smokeless to (more content not included)... [facility] 04-07-2024 History of Present illness Narrative Chief Complaint Patient presents with: Pre-Op Exam: Shoulder surgery cancelled for hypoxia Ear Problem: Possible still has infection in right ear, seen [facility] about [facility] ago. Currently has cough HPI Bonny Redding is a 68 year old male who presents here today for pre-operative exam. Patient had surgery on 03/29. Patient discussing that he was at the outpatient surgery center. He was having surgery on his right shoulder. Was given a block. Wheeled into suite, asked to over to the surgical table. Struggled getting over there but to having a block on his right arm. SpO2 went down to 60%. They had to give him oxygen. It returned to normal and surgery was cancelled. The surgeon hypothesized that the block made his diaphragm numb. He was previously cleared by his PCP for the surgery. He had paperwork for surgical approval sent to his cigarette making examiner. Has appointment in late April. He denies any chest pain. His believes that the patient becomes easily with movement. He does admit that she has some complaints of shortness of breath with exertion. Leaves that has been ongoing for a few months. Gives the example of using a work out machine prior that he now struggles with doing the same exercise. He has been checking his SpO2 at home a few times a day. SpO2 always greater than 95%. He has a history of aortic valve replacement in 2018, CAD. Uses a CPAP for JULIET with benefit. He has a history of chronic cough. No resolution when ANN inhibitor was stopped. Negative methecholine challenge in 09/2020. He states that he has chronic excessive phlegm. Usually in his throat. Can be worse after meals. Denies any GERD. Recently evaluated in [facility] care for ear pain. Large amount of cerumen removed, right ear was treated prophylactically with antibiotic for otitis externa. Denies any fevers or pain. Just would like the ears checked. Past medical history, appointments, medications, allergies reviewed. Previous Medical History PAST MEDICAL HISTORY Diagnosis Date Aortic stenosis with bicuspid valve 03/01/2015 Benign neoplasm of colon Chronic cough 05/16/2020 No resolution when ACEi stopped. Negative methecholine challenge 09/2020. Coronary artery disease Essential hypertension, benign 15 yr Obesity, unspecified Other and unspecified hyperlipidemia 15 yrs Peripheral neuropathy 11/29/2014 Personal history of colonic polyps Snoring Unspecified sleep apnea 2007 uses CPAP Vitamin D deficiency 2018 Previous Surgical History PAST SURGICAL HISTORY Procedure Laterality Date CATARACT EXTRACTION HX 2013 COLONOSCOPY FLX DX W/COLLJ SPEC WHEN PFRMD 08/31/2007 Colonoscopy COLONOSCOPY FLX DX W/COLLJ SPEC WHEN PFRMD N/A 10/12/2016 COLONOSCOPY W/BIOPSY SINGLE/MULTIPLE 07/20/2011 EXC LESION TDN SHTH/JT CAPSL HAND/FNGR 02/24/2013 Excision ganglion cyst left middle finger HEART SURGERY HX LAPAROSCOPY SURG RPR INITIAL INGUINAL HERNIA 05/17/2008 RIGHT PAST SURGICAL HISTORY OF tonsils and adenoids removed PAST SURGICAL HISTORY OF hernia PAST SURGICAL HISTORY OF 04/18/2008 right meniscus repair PAST SURGICAL HISTORY OF 07/2010 right foot surgery PAST SURGICAL HISTORY OF Right 07/28/2022 Right carpometacarpal arthroplasty with flexor carpi radialis interposition, first dorsal compartment tenosynovectomy right partial trapezodi excision RPR UMBILICAL HRNA 5 YRS/> REDUCIBLE 05/17/2008 SEPTOPLASTY/SUBMUCOUS RESECJ W/WO CARTILAGE GRF 2004 Septoplasty TOTAL KNEE REPLACEMENT Left 11/13/2022 Dr. Jackson Mera TOTAL KNEE REPLACEMENT Right 02/19/2023 Family History FAMILY HISTORY Problem Relation Age of Onset Alzheimer's Disease Mother age 76-COPD COPD Mother other (Hypertension, Hyperlipidemia) Mother Coronary Artery Disease Father 60 valve replacement Prostate Cancer Father other (PARKINSON) Father Prostate Cancer Paternal Uncle Prostate Cancer Maternal Grandfather Hypertension Sister Patient Allergies ALLERGIES No Known Allergies Current Medications Current Outpatient Medications on File Prior to Visit Medication Sig equizeih-pyughgksq-kcdroljiqssbum (CORTISPORIN) 3.5-10,000-1 mg/mL-unit/mL-% otic suspension Use 3 Drops in both ears four times daily. Tadalafil (CIALIS) 20 mg tablet Take 1 tablet by mouth as needed. losartan (COZAAR) 100 mg tablet Take 1 tablet by mouth once daily. simvastatin (ZOCOR) 20 mg tablet Take 1 tablet by mouth daily at bedtime. Amoxicillin 500 mg tablet Take 4 pills day of dental appointment OTC PRODUCT Vitamin D 500mg daily aspirin 81 mg chewable tablet Take 2 tablets by mouth once daily. No current facility-administered medications on file prior to visit. Social History Social History Tobacco Use Smoking status: Never Smokeless tobacco: Never Tobacco comments: ETS in childhood home, motrher smoker. Vaping Use Vaping status: Never Used Substance Use Topics Alcohol use: No Drug use: No Review of Symptoms REVIEW OF SYSTEMS PAIN ASSESSMENT: ongoing right shoulder pain GENERAL: No weight loss, malaise or fevers HEENT: SEE HPI NECK: Negative for lumps, goiter, pain and significant neck swelling RESPIRATORY: See HPI CARDIOVASCULAR: See HPI GI: No nausea, vomiting, or diarrhea : No history of dysuria, frequency or incontinence MUSCULOSKELETAL: see hpi SKIN: Negative for lesions, rash, and itching PSYCH: Negative for sleep disturbance, mood disorder and recent psychosocial stressors HEMATOLOGY/LYMPHOLOGY: Negative for prolonged bleeding, bruising easily or swollen nodes ENDOCRINE: Negative for cold or heat intolerance, polyuria, polydipsia and goiter NEURO: No history of headaches, syncope, paralysis, seizures or tremors EXAM: BP 138/82 Pulse (!) 57 Resp 18 Wt (!) 142.3 kg (313 lb 11.4 oz) SpO2 98% BMI 42.55 kg/m General Appearance: Well appearing, alert, in no acute distress, well-hydrated, well nourished.. Head: Normocephalic, no masses, lesions, tenderness or abnormalities. Eyes: Anicteric sclera. Pupils are equally round and reactive to light. Extraocular movements are intact. . Ears: External ears normal, canals clear. Nose/Sinuses: Nares normal, septum midline, mucosa normal, no drainage or sinus tenderness. Oropharynx: Lips, mucosa, and tongue normal, teeth and gums normal, oropharynx normal. Neck: Supple, no adenopathy; thyroid symmetric, normal size, no bruits. Lungs: Lungs clear to auscultation Heart: Positive findings: murmur: systolic 2/6 . Abdomen: Normal abdominal exam, Abdomen soft, non-tender. Bowel sounds normal. No masses, organomegaly. Extremities: No deformities, edema Health Maintenance List Shingrix Vaccine(1 of 2) Never done RSV Vaccine(1 - Risk 60-74 years 1-dose series) Never done BP Controlled (<130/80) due on 05/16/2021 DTaP,Tdap,Td Vaccine(3 - Td or Tdap) due on 03/09/2022 Colorectal Cancer Screening due on 02/04/2023 Covid-19 Vaccine( - 2023- season) Never done Influenza Vaccine(1) due on 03/12/2024 LDL Cholesterol due on 02/13/2025 Annual PCP Team Chronic Disease Visit due on 02/17/2025 Depression Screening due on 02/17/2025 Anxiety Screening due on 02/17/2025 Diabetes Screening due on 02/13/2027 Prostate Cancer Screening Discussion due on 02/03/2028 Lipid Screening due on 02/13/2029 Advance Directive Discussion Completed Hepatitis C Screening Completed Pneumococcal Vaccine: 65+ Completed Data reviewed External labs from March 27 reviewed including normal CBC, normal BMP with exception of glucose 125. ASSESSMENT/PLAN: 1. Obstructive sleep apnea syndrome - ICD9: 327.23, ICD10: G47.33 (primary diagnosis) -Continue with CPAP use 2. Hypoxemia during surgery - ICD9: 799.02, 997.1, ICD10: I97.88, R09.02 -Unknown the reason. Patient has not been hypoxic since date of surgery. Likely secondary to nerve block. Patient states has some subtle shortness of breath with exertion. Will likely need a stress test. Has upcoming appointment with cardiology for further evaluation and clearance. I encouraged the patient to continue with this appointment. 3. Pre-op exam - ICD9: V72.84, ICD10: Z01.818 -Medically optimized from the standpoint of family medicine but will need cardiology to give clearance. I will sign the paperwork indicating pending clearance, pending cardiology clearance. 4. History of aortic valve replacement with bioprosthetic valve - ICD9: V42.2, ICD10: Z95.3 -Follow-up with cardiology 5. 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 - ICD9: 414.01, ICD10: I25.10 -Follow-up with cardiology 6. Essential hypertension, benign - ICD9: 401.1, ICD10: I10 - Controlled - Continue current medications - Recommend home blood pressure monitoring, to bring results to next visit - Encouraged sodium restriction, DASH or Mediterranean diet - Recommend regular aerobic exercise 7. Acute otitis externa of right ear, unspecified type - ICD9: 380.10, ICD10: H60.501 - resolved Ye Sharma APRN.DILIP This note was partly generated using [employer] voice recognition dictation and may contain some misspelled or inaccurate words missed on review. documented in this encounter [facility] [place] 03-31-2024 Telephone encounter Note Form printed and placed in Dr Lake's folder. Tatyana Mcdonald RN [facility] [place] 03-30-2024 Telephone encounter Note [facility] sends Request for Surgical Clearance form stating that pt shoulder surgery was cancelled due to Hypoxemia prior to surgery per anesthesia. See form, complete and fax back. Ana Baltazar MA [facility] [place] 03-29-2024 Telephone encounter Note Images from the original note were not included. [facility] [place] 03-20-2024 Telephone encounter Note New RX sent over. [facility] [place] 03-20-2024 Miscellaneous Notes New RX sent over. [facility] calls and states that current prescription ordered is not covered under patient's insurance and it not in stock. Pharmacist asking if prescription can be changed to regular cortisporin. Prescription pended if agreeable Please review and advise, rTacey Luu RN documented in this encounter [facility] [place] 03-20-2024 Telephone encounter Note [facility] calls and states that current prescription ordered is not covered under patient's insurance and it not in stock. Pharmacist asking if prescription can be changed to regular cortisporin. Prescription pended if agreeable Please review and advise, Tracey Luu RN [facility] [place] 03-20-2024 Nurse Note Ambulatory Ear Lavage Pre-treatment: Warm water Treatment: Both ears Equipment and Irrigation solution and Volume used: Single use syringe with single use irrigation tip Water Return flow appearance: Brown Yellow Debris Patient tolerated procedure: yes Tympanic membrane assessment: Tympanic membrane assessed by LIP pre and post procedure Myra Miramontes APRN.BOARD WRITER [facility] [place] 03-20-2024 Nurse Note Ambulatory Ear Lavage Pre-treatment: Warm water Treatment: Both ears Equipment and Irrigation solution and Volume used: Single use syringe with single use irrigation tip Water Return flow appearance: Brown Yellow Debris Patient tolerated procedure: yes Tympanic membrane assessment: Tympanic membrane assessed by LIP pre and post procedure Myra Miramontes APRN.BOARD WRITER documented in this encounter [facility] [place] 03-20-2024 Instructions Myra Miramontes APRN.CNP - 03/20/2024 9:36 AM EDT Cerumen Patient Care Instructions: You were seen for ear wax (cerumen). Your ear was impacted with it. This means the wax partly or fully blocked the ear canal. This can happen on its own. One common cause is putting Q-tips in the ear canal. The Q-tips are supposed to clean them out. This often pushes the wax deeper into the ear. This causes the wax to keep building up. Earwax is naturally produced by your body. It helps protect your ear from dirt and debris (junk). Ears are generally self-cleaning. Q-tips should NOT be used to clean the ear canal! You can get ear wax removal kits at the pharmacy or drug store. You don't need a prescription for these kits. This allows you to soften the wax and rinse the ear canal at home.Please follow the package instructions. The wax may have been irrigated today in the medical office. A special tool may have been used to manually remove the wax. The doctor has special training for using these devices. DO NOT try this at home. The wax was removed from your ear. This can be irritating to the ear canal. It may be sore for a few hours. It may even bleed a little. This is normal. It should go away quickly. YOU SHOULD SEEK MEDICAL ATTENTION IMMEDIATELY, EITHER HERE OR AT THE NEAREST EMERGENCY DEPARTMENT, IF ANY OF THE FOLLOWING OCCURS: Ear drainage is bloody or smells bad. Increasing ear pain. Fever (temperature higher than 100.4 F / 38 C). Any hearing loss. documented in this encounter [facility] [place] 03-20-2024 History of Present illness Narrative Patient presents with: Ear Problem: Left ear clogged started this morning SUBJECTIVE: Bonny Redding Jr. is a 68 year old year old male who presents for the past 1 day with symptoms that are:constant. 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 Vaping Use Vaping status: Never Used Substance Use Topics Alcohol use: No Drug use: No PAST MEDICAL HISTORY 03/01/2015: Aortic stenosis with bicuspid valve No date: Benign neoplasm of colon 05/16/2020: Chronic cough Comment: No resolution when ACEi stopped. Negative methecholine challenge 09/2020. No date: Coronary artery disease No date: Essential hypertension, benign Comment: 15 yr No date: Obesity, unspecified No date: Other and unspecified hyperlipidemia Comment: 16 yrs 11/29/2014: Peripheral neuropathy No date: Personal history of colonic polyps No date: Snoring 2007: Unspecified sleep apnea Comment: uses CPAP 2018: Vitamin D deficiency 03/20/24 0845 BP: 130/84 Pulse: (!) 53 Resp: 17 Temp: 36.5 C (97.7 F) SpO2: 94% Weight: (!) 143.5 kg (316 lb 5.8 oz) ALLERGIES No Known Allergies Medications: Tadalafil (CIALIS) 20 mg tablet Take 1 tablet by mouth as needed. losartan (COZAAR) 100 mg tablet Take 1 tablet by mouth once daily. simvastatin (ZOCOR) 20 mg tablet Take 1 tablet by mouth daily at bedtime. Amoxicillin 500 mg tablet Take 4 pills day of dental appointment OTC PRODUCT Vitamin D 500mg daily aspirin 81 mg chewable tablet Take 2 tablets by mouth once daily. Review of Systems HENT: Positive for hearing loss. Negative for ear discharge, ear pain and tinnitus. Physical Exam Vitals and nursing note reviewed. Constitutional: Appearance: Normal appearance. He is not ill-appearing. HENT: Right Ear: There is impacted cerumen. Left Ear: There is impacted cerumen. Neurological: Mental Status: He is alert. Bilateral ears flushed with warm water by Sraah Anderson MA. Large amount of cerumen removed from both ear(s), without difficulty. Patient tolerated procedure well. Post procedure examination of ears reveal moderately erythematous canals with edema without excoriation and normal TMs. ASSESSMENT/PLAN: 1. Bilateral impacted cerumen - ICD9: 380.4, ICD10: H61.23 (primary diagnosis) Resolved 2. Acute infective otitis externa, bilateral - ICD9: 380.10, ICD10: H60.393 Cortisporin gtt as prescribed Myra Miramontes APRN.BOARD WRITER documented in this encounter [facility] [place] 03-17-2024 Telephone encounter Note Faxed. Ana Baltazar MA [facility] [place] 03-17-2024 Miscellaneous Notes Faxed. Ana Baltazar MA Form signed; office note and ECG printed Deshawn Noel MD Type of letter/form/fax request - request for surgery clearance Form received from fax on 1 floor and placed on MD desk (Dr. Noel) for completion. Completed form needs to be faxed to [facility] at [phone]. Pt scheduled for right shoulder arthroscopic rotator cuff repair, possible open repair, labral repair, possible glenoid open reduction internal fixation, biceps tenodesis. Surgery scheduled for 03/29/24. Has pre op appt with Griselda Bartlett PA-C on 03/17/24. Pt saw PCP on 02/18/24. Route to [place] when form completed for processing documented in this encounter [facility] [place] 03-17-2024 Telephone encounter Note Form signed; office note and ECG printed Deshawn Noel MD [facility] [place] 03-17-2024 Telephone encounter Note Type of letter/form/fax request - request for surgery clearance Form received from fax on 1 floor and placed on MD desk (Dr. Noel) for completion. Completed form needs to be faxed to [facility] at [phone]. Pt scheduled for right shoulder arthroscopic rotator cuff repair, possible open repair, labral repair, possible glenoid open reduction internal fixation, biceps tenodesis. Surgery scheduled for 03/29/24. Has pre op appt with Griselda Bartlett PA-C on 03/17/24. Pt saw PCP on 02/18/24. Route to [place] when form completed for processing [facility] [place] 02-18-2024 Telephone encounter Note Form completed by PCP. OV note from 02/18/24 printed and faxed to [phone]. Gloria Miller MA [facility] [place] 02-18-2024 Miscellaneous Notes Form completed by PCP. OV note from 02/18/24 printed and faxed to [phone]. Gloria Miller MA Type of form: Request for Surgery Clearance. Has Pre-Op appt on 03/17/24. Pt follows with Cardiology. Pt scheduled for surgery on 03/29/24. Pt having R shoulder Arthroscopic rotator cuff repair, possible open repair, labral repair, possible Glenoid open reduction internal fixation, Biceps tenodesis. Form received via fax When form is completed, Fax form to [phone] Form has been forwarded to Physician Desk: Dr. Noel. Pt has appt tomorrow on 02/18/24. Gloria Miller MA documented in this encounter [facility] [place] 02-18-2024 History of Present illness Narrative Chief Complaint Patient presents with: F/U 6 Month HPI Bonny Redding Jr. is a 68 year old male who presents here today for 6 month follow up. No bowel, Gi, or urinary issues. Due for 3 year repeat Colonoscopy. Prefers to hold off at this time due to having shoulder surgery in March. Would like to discuss at next visit. Taking Cialis 20 mg daily prn for ED. Lipid/Glucose: Taking Zocor 20 mg daily and ASA 81 mg daily. Denies watching diet much. Was previously exercising until he dislocated his shoulder, has not been doing much since. Notes he's been skipping his Zocor, taking this every other day to see if it helped with muscle pain. Did this for 3 months and didn't notice any difference. Is going to start taking this daily again. Hx of elevated glucose and A1c. Currently on no medications at this time. HTN: Taking Losartan 100 mg daily. Denies checking BP at home. No chest pains, dizziness, or SOB. No abnormal lower leg edema. Follows with Cardiology, Dr. Lake for Nonrheumatic aortic valve stenosis, aortic valve replacement, sinus bradycardia. Is scheduled to have repeat ECG on 05/02/24 with his routine Cardiac follow up. Pt hx of surgical aortic valve replacement with 27 mm Silvia-Saleh valve by Dr. Spaulding 11/2017. JULIET - On CPAP, received new machine and feels he's doing well with this and sleeping much better. Receives supplies through [employer]. After previous knee surgery in 2022, pt noted sleeping better with use of Oxycodone medication. Was splitting medication in half to last longer. 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 No prior sleep issues prior. Pt was prescribed Trazodone in the past to help in sleep, was on temporarily but has since d/c. [place] this was related to an old machine, doing better with new machine. Office received surgical clearance forms from [facility]. Pt scheduled for Right Shoulder Arthroscopic rotator cuff repair, Possible open repair, Labral repair, possible Glenoid open reduction internal fixation, Bicep tenodesis on 03/29/24. Pt is scheduled for pre-op appt on 03/17/24. Pt had ECG completed on 04/13/23 by Cardiology. Plantar fasciitis right foot for 2-3 weeks; had some bruising. Recommended ice HM - Behavioral screening completed, negative. RSV/Shingles through Pharmacy due to Medicare Insurance. Adv Dir/Living will scanned into chart. Past medical history, appointments, medications, allergies reviewed. Previous Medical History PAST MEDICAL HISTORY 03/01/2015: Aortic stenosis with bicuspid valve No date: Benign neoplasm of colon 05/16/2020: Chronic cough Comment: No resolution when ACEi stopped. Negative methecholine challenge 09/2020. No date: Coronary artery disease No date: Essential hypertension, benign Comment: 15 yr No date: Obesity, unspecified No date: Other and unspecified hyperlipidemia Comment: 15 yrs 11/29/2014: Peripheral neuropathy No date: Personal history of colonic polyps No date: Snoring 2006: Unspecified sleep apnea Comment: uses CPAP 2018: Vitamin D deficiency Previous Surgical History PAST SURGICAL HISTORY 2014: CATARACT EXTRACTION HX 08/31/2007: COLONOSCOPY FLX DX W/COLLJ SPEC WHEN PFRMD Comment: Colonoscopy 10/12/2016: COLONOSCOPY FLX DX W/COLLJ SPEC WHEN PFRMD; N/A 07/20/2011: COLONOSCOPY W/BIOPSY SINGLE/MULTIPLE 02/24/2013: EXC LESION TDN SHTH/JT CAPSL HAND/FNGR Comment: Excision ganglion cyst left middle finger No date: HEART SURGERY HX 05/17/2008: LAPAROSCOPY SURG RPR INITIAL INGUINAL HERNIA Comment: RIGHT No date: PAST SURGICAL HISTORY OF Comment: tonsils and adenoids removed No date: PAST SURGICAL HISTORY OF Comment: hernia 04/18/2008: PAST SURGICAL HISTORY OF Comment: right meniscus repair 07/2010: PAST SURGICAL HISTORY OF Comment: right foot surgery 07/28/2022: PAST SURGICAL HISTORY OF; Right Comment: Right carpometacarpal arthroplasty with flexor carpi radialis interposition, first dorsal compartment tenosynovectomy right partial trapezodi excision 05/17/2008: RPR UMBILICAL HRNA 5 YRS/> REDUCIBLE 2005: SEPTOPLASTY/SUBMUCOUS RESECJ W/WO CARTILAGE GRF Comment: Septoplasty 11/13/2022: TOTAL KNEE REPLACEMENT; Left Comment: Dr. Jackson Mera 02/19/2023: TOTAL KNEE REPLACEMENT; Right Family History FAMILY HISTORY Problem Relation Age of Onset Alzheimer's Disease Mother age 76-COPD COPD Mother other (Hypertension, Hyperlipidemia) Mother Coronary Artery Disease Father 60 valve replacement Prostate Cancer Father other (PARKINSON) Father Prostate Cancer Paternal Uncle Prostate Cancer Maternal Grandfather Hypertension Sister Patient Allergies ALLERGIES No Known Allergies Current Medications Current Outpatient Medications on File Prior to Visit Medication Sig losartan (COZAAR) 100 mg tablet Take 1 tablet by mouth once daily. simvastatin (ZOCOR) 20 mg tablet Take 1 tablet by mouth daily at bedtime. Tadalafil (CIALIS) 20 mg tab(s) Take 1 tablet by mouth once daily. (Patient taking differently: Take 20 mg by mouth as needed.) Amoxicillin 500 mg tablet Take 4 pills day of dental appointment OTC PRODUCT Vitamin D 500mg daily aspirin 81 mg chewable tablet Take 2 tablets by mouth once daily. Current Facility-Administered Medications on File Prior to Visit Medication perflutren lipid microspheres 1.3 mL in NaCl (PF) 0.9% 10 mL injection (DEFINITY) sodium chloride 0.9 % (flush) 10 mL (BD POSIFLUSH) Social History Social History Tobacco Use Smoking status: Never Smokeless tobacco: Never Tobacco comments: ETS in childhood home, motrher smoker. Vaping Use Vaping Use: Never used Substance Use Topics Alcohol use: No Drug use: No EXAM: BP 138/92 Pulse (!) 52 Resp 18 Wt (!) 141.5 kg (311 lb 15.2 oz) BMI 42.31 kg/m General Appearance: Well appearing, alert, in no acute distress, well-hydrated, well nourished. and Morbidly obese. Lungs: Lungs clear to auscultation. No wheezing, rhonchi, rales.. Heart: RRR without murmur, gallop, or rubs. No ectopy. Health Maintenance List Depression Screening Never done Anxiety Screening Never done Shingrix Vaccine(1 of 2) Never done RSV Vaccine(1 - 1-dose 60+ series) Never done BP Controlled (<130/80) due on 05/16/2021 DTaP,Tdap,Td Vaccine(3 - Td or Tdap) due on 03/09/2022 Colorectal Cancer Screening due on 02/04/2023 Advance Directive Discussion due on 07/12/2023 Covid-19 Vaccine( season) due on 08/19/2024 Influenza Vaccine(1) due on 03/12/2024 Annual PCP Team Chronic Disease Visit due on 08/19/2024 LDL Cholesterol due on 02/13/2025 Diabetes Screening due on 02/13/2027 Prostate Cancer Screening Discussion due on 02/03/2028 Lipid Screening due on 02/13/2029 Hepatitis C Screening Completed Pneumococcal Vaccine: 65+ Completed Data reviewed Appointment on 02/14/2024 Component Date Value Protein, Total 02/14/2024 7.0 Albumin 02/14/2024 4.4 Calcium, Total 02/14/2024 9.7 Bilirubin, Total 02/14/2024 1.2 Alkaline Phosphatase 02/14/2024 86 AST 02/14/2024 35 ALT 02/14/2024 38 Glucose 02/14/2024 119 (H) BUN 02/14/2024 20 Creatinine 02/14/2024 1.09 Sodium 02/14/2024 140 Potassium 02/14/2024 4.3 Chloride 02/14/2024 105 CO2 02/14/2024 24 Anion Gap 02/14/2024 11 Estimated Glomerular Christian* 02/14/2024 74 Cholesterol, Total 02/14/2024 222 (H) Triglyceride 02/14/2024 96 HDL Cholesterol 02/14/2024 42 Non HDL Cholesterol 02/14/2024 180 (H) Fasting Time 02/14/2024 15 VLDL Cholesterol 02/14/2024 19 TC:HDL Ratio 02/14/2024 5.29 (H) LDL Cholesterol 02/14/2024 161 (H) LDL:HDL Ratio 02/14/2024 3.83 (H) Hemoglobin A1C 02/14/2024 5.7 (H) Estimated Average Glucose 02/14/2024 117 ASSESSMENT/PLAN: 1. Essential hypertension, benign - ICD9: 401.1, ICD10: I10 (primary diagnosis) - Controlled - Continue current medications - Recommend home blood pressure monitoring, to bring results to next visit - Encouraged sodium restriction, DASH or Mediterranean diet - Recommend regular aerobic exercise - Discussed need for and benefit of weight loss. BMI 42.31 kg/(m^2) - COMPREHENSIVE METABOLIC PANEL - LIPID PANEL BASIC 2. Hyperlipidemia LDL goal <130 - ICD9: 272.4, ICD10: E78.5 - Worsening control - Continue current medications - Counseled on healthy diet and regular exercise - COMPREHENSIVE METABOLIC PANEL - LIPID PANEL BASIC 3. Impaired fasting glucose - ICD9: 790.21, ICD10: R73.01 Stable - COMPREHENSIVE METABOLIC PANEL - LIPID PANEL BASIC - HEMOGLOBIN A1C 4. Obstructive sleep apnea syndrome - ICD9: 327.23, ICD10: G47.33 Continue CPAP 5. History of aortic valve replacement with bioprosthetic valve - ICD9: V42.2, ICD10: Z95.3 6. ED (erectile dysfunction) of organic origin - ICD9: 607.84, ICD10: N52.9 - TADALAFIL 20 MG TABLET 7. Screening for depression - ICD9: V79.0, ICD10: Z13.31 - DEPRESSION SCREENING 8. Encounter for screening examination for other mental health and behavioral disorders - ICD9: V79.8, ICD10: Z13.39 - ANXIETY SCREENING 9. Pre-op exam - ICD9: V72.84, ICD10: Z01.818 Medically stable for surgery Form completed; will send with office note 10. Plantar fasciitis Symptomatic treatment, follow up if not improving Follow up in 6 months Medical Decision Making: Problems: Moderate: 2+ stable chronic illnesses Data: Unique test result(s) reviewed: 3+ Unique test(s) ordered: 3+ Risk: Moderate: Drug management Medical Decision Making Level: 4 - Moderate Deshawn Noel MD documented in this encounter [facility] [place] 02-17-2024 Telephone encounter Note Type of form: Request for Surgery Clearance. Has Pre-Op appt on 03/17/24. Pt follows with Cardiology. Pt scheduled for surgery on 03/29/24. Pt having R shoulder Arthroscopic rotator cuff repair, possible open repair, labral repair, possible Glenoid open reduction internal fixation, Biceps tenodesis. Form received via fax When form is completed, Fax form to [phone] Form has been forwarded to Physician Desk: Dr. Noel. Pt has appt tomorrow on 02/18/24. Gloria Miller MA [facility] [place] 12-15-2023 History of Present illness Narrative Subjective HPI HPI Bonny Redding Jr. is a 68 year old male who presents today for CC of bilat ears clogged. This started few weeks. Has tried nothing for relief. Symptoms are worsened by nothing. Risk factors uses hearing aids, hx of cerumen impaction. .Patient presents with: Ear Problem: bilateral ear clogged PAST MEDICAL HISTORY Diagnosis Date Aortic stenosis with bicuspid valve 03/01/2015 Benign neoplasm of colon Chronic cough 05/16/2020 No resolution when ACEi stopped. Negative methecholine challenge 09/2020. Coronary artery disease Essential hypertension, benign 15 yr Obesity, unspecified Other and unspecified hyperlipidemia 15 yrs Peripheral neuropathy 11/29/2014 Personal history of colonic polyps Snoring Unspecified sleep apnea 2007 uses CPAP Vitamin D deficiency 2018 PAST SURGICAL HISTORY Procedure Laterality Date CATARACT EXTRACTION HX 2014 COLONOSCOPY FLX DX W/COLLJ SPEC WHEN PFRMD 08/31/2007 Colonoscopy COLONOSCOPY FLX DX W/COLLJ SPEC WHEN PFRMD N/A 10/12/2016 COLONOSCOPY W/BIOPSY SINGLE/MULTIPLE 07/20/2011 EXC LESION TDN SHTH/JT CAPSL HAND/FNGR 02/24/2013 Excision ganglion cyst left middle finger HEART SURGERY HX LAPAROSCOPY SURG RPR INITIAL INGUINAL HERNIA 05/17/2008 RIGHT PAST SURGICAL HISTORY OF tonsils and adenoids removed PAST SURGICAL HISTORY OF hernia PAST SURGICAL HISTORY OF 04/18/2008 right meniscus repair PAST SURGICAL HISTORY OF 07/2010 right foot surgery PAST SURGICAL HISTORY OF Right 07/28/2022 Right carpometacarpal arthroplasty with flexor carpi radialis interposition, first dorsal compartment tenosynovectomy right partial trapezodi excision RPR UMBILICAL HRNA 5 YRS/> REDUCIBLE 05/17/2008 SEPTOPLASTY/SUBMUCOUS RESECJ W/WO CARTILAGE GRF 2004 Septoplasty TOTAL KNEE REPLACEMENT Left 11/13/2022 Dr. Jackson Mera TOTAL KNEE REPLACEMENT Right 02/19/2023 ALLERGIES Patient has no known allergies. MEDICATIONS losartan (COZAAR) 100 mg tablet^Take 1 tablet by mouth once daily.^Disp: 90 tablet^Rfl: 3 simvastatin (ZOCOR) 20 mg tablet^Take 1 tablet by mouth daily at bedtime.^Disp: 90 tablet^Rfl: 3 Tadalafil (CIALIS) 20 mg tab(s)^Take 1 tablet by mouth once daily.^Disp: 8 tablet^Rfl: 11 (Patient taking differently: Take 20 mg by mouth as needed.) Amoxicillin 500 mg tablet^Take 4 pills day of dental appointment^Disp: ^Rfl: OTC PRODUCT^Vitamin D 500mg daily^Disp: ^Rfl: aspirin 81 mg chewable tablet^Take 2 tablets by mouth once daily.^Disp: 120 tablet^Rfl: 0 FAMILY HISTORY Problem Relation Age of Onset Alzheimer's Disease Mother age 76-COPD COPD Mother other (Hypertension, Hyperlipidemia) Mother Coronary Artery Disease Father 60 valve replacement Prostate Cancer Father other (PARKINSON) Father Prostate Cancer Paternal Uncle Prostate Cancer Maternal Grandfather Hypertension Sister Social History Tobacco Use Smoking status: Never Smokeless tobacco: Never Tobacco comments: ETS in childhood home, motrher smoker. Vaping Use Vaping Use: Never used Substance Use Topics Alcohol use: No Drug use: No Review of Systems Constitutional: Negative for fever. HENT: Positive for hearing loss. Negative for congestion, ear discharge, ear pain, nosebleeds and sore throat. Respiratory: Negative for cough, shortness of breath and wheezing. Musculoskeletal: Negative for neck pain. Objective Blood pressure 122/82, pulse 62, temperature 36.4 C (97.6 F), resp. rate 18, weight (!) 140.2 kg (309 lb 1.4 oz), SpO2 97%. Physical Exam Constitutional: General: He is not in acute distress. Appearance: He is not toxic-appearing or diaphoretic. HENT: Head: Normocephalic and atraumatic. Right Ear: Hearing and external ear normal. Left Ear: Hearing and external ear normal. Ears: Comments: Initially unable to see bilat tm d/t cerumen impaction. Procedure: Provider/curette Nurse/lavage After procedure bilat canal clear and bilat tm normal Pulmonary: Effort: Pulmonary effort is normal. No accessory muscle usage or respiratory distress. Neurological: Mental Status: He is alert and oriented to person, place, and time. ASSESSMENT/PLAN: 1. Bilateral impacted cerumen - ICD9: 380.4, ICD10: H61.23 Successful cerumen removal via nurse/lavage and provider/curette Discussed proper ear hygiene and f/u Aleksander Tomlinson APRN.BOARD WRITER documented in this encounter [facility] [place] 12-14-2023 Telephone encounter Note Form completed and faxed back to information below. Gloria Miller MA [facility] [place] 12-14-2023 Miscellaneous Notes Form completed and faxed back to information below. Gloria Miller MA Type of letter/form/fax request - PAP supply orders Form received from fax on 1 floor and placed on MD desk (Dr. Noel) for completion. Completed form [place] [facility] [place] [phone]. Route to [place] when form completed for processing documented in this encounter [facility] [place] 12-14-2023 Telephone encounter Note Type of letter/form/fax request - PAP supply orders Form received from fax on 1 floor and placed on MD desk (Dr. Noel) for completion. Completed form needs to be faxed to [employer] at [phone]. Route to [place] when form completed for processing [facility] [place] 12-04-2023 Note Education Materials Orthopedics Contusion A contusion is a deep bruise. This is a result of an injury that causes bleeding under the skin. Symptoms of bruising include pain, swelling, and discolored skin. The skin may turn blue, purple, or yellow. Follow these instructions at home: Managing pain, stiffness, and swelling You may use RICE. This stands for: ? Resting. ? Icing. ? Compression, or putting pressure on the injured area. ? Elevating, or raising the injured area. To follow this method, do these actions: ? Rest the injured area. ? If told, put ice on the injured area. To do this: ? Put ice in a plastic bag. ? Place a towel between your skin and the bag. ? Leave the ice on for 20 minutes, 2?3 times per day. ? If your skin turns bright red, take off the ice right away to prevent skin damage. The risk of skin damage is higher if you cannot feel pain, heat, or cold. ? If told, apply compression on the injured area using an elastic bandage. Make sure the bandage is not too tight. If the area tingles or has a loss of feeling (numbness), remove it and put it back on as told by your doctor. ? If possible, elevate the injured area above the level of your heart while you are sitting or lying down. General instructions ? Take cloe-bdn-nrtfzbd and prescription medicines only as told by your doctor. ? Keep all follow-up visits. Your doctor may want to see how your contusion is healing with treatment. Contact a doctor if: ? Your symptoms do not get better after several days of treatment. ? Your symptoms get worse. ? You have trouble moving the injured area. Get help right away if: ? You have very bad pain. ? You have a loss of feeling (numbness) in a hand or foot. ? Your hand or foot turns pale or cold. This information is not intended to replace advice given to you by your health care provider. Make sure you discuss any questions you have with your health care provider. Document Revised: 12/14/2022 Document Reviewed: 12/14/2022 [employer] Patient Education ? 2022 [employer]. [facility] 12-02-2023 Note Education Materials Orthopedics How to Use a Sling A sling is a type of hanging bandage. You wear it around your neck to protect an injured arm, shoulder, or other body part. You may need to wear a sling so that your injured body part does not move (is immobilized) while it heals. Keeping the injured part of your body still can lessen pain and speed up healing. Your doctor may suggest that you use a sling if you have: ? A broken arm. ? A broken collarbone. ? A shoulder or elbow injury. ? Shoulder, arm, wrist, or hand surgery. What are the risks? Wearing a sling is safe. In some cases, wearing a sling the wrong way can: ? Make the injury worse. ? Cause soreness, stiffness, or loss of feeling (numbness). ? Affect blood flow (circulation) in the arm and hand. This can cause tingling or loss of feeling in the fingers or hands. How to use a sling Follow instructions from your doctor about how and when to wear your sling. Your doctor will show you or tell you: ? How to put on the sling. ? How to adjust the sling. ? When and how often to wear the sling. ? How to take off the sling. The way that you use a sling depends on your injury. Follow these instructions (unless your doctor tells you other instructions): ? Wear the sling so that your elbow bends to the shape of a capital letter L (at a 90-degree angle, also called a right angle). ? Make sure the sling supports your elbow, wrist, and hand. ? Adjust the sling if your fingers or hand start to tingle or lose feeling. Follow these instructions at home: ? Try to not move your arm. ? Do not twist, lift, or move your arm in a way that could make your injury worse. ? Do not lean on your arm while you have to wear a sling. ? Do not lift anything with the hand or arm that is in the sling. Contact a doctor if: ? You have: ? Bruising, swelling, or pain that gets worse. ? Pain that does not get better with medicine. ? A fever. ? Your sling: ? Does not support your arm like it should. ? Gets damaged. Get help right away if: ? You lose feeling in your fingers. ? Your fingers: ? Are tingling. ? Turn blue. ? Feel cold to the touch. ? You cannot control the bleeding from your injury. ? You have shortness of breath. These symptoms may be an emergency. Get help right away. Call your local emergency services (911 in the [place] ? Do not wait to see if the symptoms will go away. ? Do not drive yourself to the hospital. Summary ? A sling is a type of hanging bandage. You wear it around your neck to protect an injured arm, shoulder, or other body part. ? You may need to wear a sling so that your injured body part does not move (is immobilized) while it heals. ? The way that you use a sling depends on your injury. Follow instructions from your doctor about how and when to wear your sling. ? Wear the sling so that your elbow bends to the shape of a capital letter L. ? Know which problems should cause you to contact your doctor or get help. This information is not intended to replace advice given to you by your health care provider. Make sure you discuss any questions you have with your health care provider. Document Revised: 08/13/2021 Document Reviewed: 08/13/2021 [employer] Patient Education ? 2022 [employer]. Shoulder Dislocation Your shoulder joint is made up of 3 bones: ? The upper arm bone (humerus). ? The shoulder blade (scapula). ? The collarbone (clavicle). A shoulder dislocation happens when your upper arm bone moves out of its normal place in your shoulder joint. What are the causes? This condition is often caused by: ? A fall. ? A hard, direct hit to the shoulder. ? A forceful movement of the shoulder. What increases the risk? You are more likely to develop this condition if you play sports. What are the signs or symptoms? ? Bad shape (deformity) of the shoulder. ? Very bad pain. ? A shoulder that you cannot move. ? Numbness, weakness, or tingling in your neck or down your arm. ? Bruising or swelling around your shoulder. How is this treated? This condition is treated with a procedure called a reduction. This is done to place the upper arm bone back in the joint. There are two types of reduction: ? Closed reduction. The upper arm bone is placed back in the joint without surgery. The doctor uses his or her hands to guide the bone back into place. ? Open reduction. Surgery is done to place the upper arm bone back in the joint. This may be needed if: ? You have a weak shoulder joint or weak tissues that connect bones to each other (ligaments). ? You have had more than one shoulder dislocation. ? The nerves or blood vessels around your shoulder have been damaged. After the procedure, you will wear a brace or sling to prevent the arm from moving. After the brace or sling is removed, you will have physic (more content not included)... [facility] 11-08-2023 Telephone encounter Note Call from patient requesting refill. Requested Prescriptions Pending Prescriptions Disp Refills losartan (COZAAR) 100 mg tablet 90 tablet 3 Sig: Take 1 tablet by mouth once daily. Patient last seen 04/13/23 Kaylyn Wallace [facility] [place] 11-08-2023 Miscellaneous Notes Call from patient requesting refill. Requested Prescriptions Pending Prescriptions Disp Refills losartan (COZAAR) 100 mg tablet 90 tablet 3 Sig: Take 1 tablet by mouth once daily. Patient last seen 04/13/23 Kaylyn Wallace documented in this encounter [facility] [place] 08-19-2023 History of Present illness Narrative Chief Complaint Patient presents with: F/U 6 Month HPI Bonny Sanchez Mandyjenifer is a 67 year old male who presents here today for a 6 month follow up. Pt here today for a 6 month follow up. GI/Uro - Denies any stomach, bowel or urinary issues. ED - Uses Cialis 20 mg prn. HTN - Denies checking BP at home or having symptoms of chest pain, sob or dizziness. Follows with Cardio. On current regimen of Lopressor 25 mg bid and Lisinopril 20 mg once daily. Lipid/CAD - Tries to watch diet, does intermittent fasting. Exercises 3 days a week. On current regimen of Zocor 20 mg daily and ASA 81 mg daily. Glucose - Hx of elevated A1c/glucose. Currently on no medication at this time. Ortho - Follows with Dr. Jackson Mera for OA b/l knee. Had L TKR in 11/2022 and R TKR in February. Overall doing well since having both knee's completed. Has previously received cortisone injections in his knees. Sleep/JULIET - Was started on Trazodone 50 mg for sleep. Came into office after running out of Oxycodone after surgery, noting he was waking up and not sleeping well. Received new CPAP machine and doing well, using every night. He feels that he benefits greatly from using the CPAP. Reports his old machine was failing. Groin - Was seen in February for this thought maybe this was a hernia. Now has this on b/l sides. Parmelee this was related to his knee surgeries and his walking being off. Feels the pain with walking and when lifting his leg to get into the shower. Also will feel when he lays in bed and pushes up to roll over. Was told in the past this is more than likely related to muscles. Wondering if this will eventually go away. Cough - Had a cough a while back and Dr. Ambrose changed his medication ,with no real improvement. Cardiology changed his medication which helped this. After his knee surgery he woke up with the cough again. The cough doesn't bother him but bothers his . The cough is 4-16 times a day. Has not changed his diet. The phlegm is clear in production. Feels like he needs to clear his throat out and once he does it improves. Denies any sinus drainage. Denies any sob or wheezing. Feels this is more frequent around eating time, but not always true. No issues with swallowing or dysphagia. Ear - Hx of b/l ear wax needing flushed during OV. HM - Declines depression (score 0). Declines Flu and Covid vaccine. Shingles and RSV if wanted through Pharmacy due to Medicare Insurance. Has Adv Dir/Living Will. Past medical history, appointments, medications, allergies reviewed. Previous Medical History PAST MEDICAL HISTORY Diagnosis Date Aortic stenosis with bicuspid valve 03/01/2015 Benign neoplasm of colon Chronic cough 05/16/2020 No resolution when ACEi stopped. Negative methecholine challenge 09/2020. Coronary artery disease Essential hypertension, benign 15 yr Obesity, unspecified Other and unspecified hyperlipidemia 15 yrs Peripheral neuropathy 11/29/2014 Personal history of colonic polyps Snoring Unspecified sleep apnea 2007 uses CPAP Vitamin D deficiency 2018 Previous Surgical History PAST SURGICAL HISTORY Procedure Laterality Date CATARACT EXTRACTION HX 2014 COLONOSCOPY FLX DX W/COLLJ SPEC WHEN PFRMD 08/31/2007 Colonoscopy COLONOSCOPY FLX DX W/COLLJ SPEC WHEN PFRMD N/A 10/12/2016 COLONOSCOPY W/BIOPSY SINGLE/MULTIPLE 07/20/2011 EXC LESION TDN SHTH/JT CAPSL HAND/FNGR 02/24/2013 Excision ganglion cyst left middle finger HEART SURGERY HX LAPAROSCOPY SURG RPR INITIAL INGUINAL HERNIA 05/17/2008 RIGHT PAST SURGICAL HISTORY OF tonsils and adenoids removed PAST SURGICAL HISTORY OF hernia PAST SURGICAL HISTORY OF 04/18/2008 right meniscus repair PAST SURGICAL HISTORY OF 07/2010 right foot surgery PAST SURGICAL HISTORY OF Right 07/28/2022 Right carpometacarpal arthroplasty with flexor carpi radialis interposition, first dorsal compartment tenosynovectomy right partial trapezodi excision RPR UMBILICAL HRNA 5 YRS/> REDUCIBLE 05/17/2008 SEPTOPLASTY/SUBMUCOUS RESECJ W/WO CARTILAGE GRF 2004 Septoplasty TOTAL KNEE REPLACEMENT Left 11/13/2022 Dr. Jackson Mera TOTAL KNEE REPLACEMENT Right 02/19/2023 Family History FAMILY HISTORY Problem Relation Age of Onset Alzheimer's Disease Mother age 76-COPD COPD Mother other (Hypertension, Hyperlipidemia) Mother Coronary Artery Disease Father 60 valve replacement Prostate Cancer Father other (PARKINSON) Father Prostate Cancer Paternal Uncle Prostate Cancer Maternal Grandfather Hypertension Sister Patient Allergies ALLERGIES No Known Allergies Current Medications Current Outpatient Medications on File Prior to Visit Medication Sig losartan (COZAAR) 100 mg tablet Take 1 tablet by mouth once daily. simvastatin (ZOCOR) 20 mg tablet Take 1 tablet by mouth daily at bedtime. Tadalafil (CIALIS) 20 mg tab(s) Take 1 tablet by mouth once daily. (Patient taking differently: Take 20 mg by mouth as needed.) Amoxicillin 500 mg tablet Take 4 pills day of dental appointment OTC PRODUCT Vitamin D 500mg daily aspirin 81 mg chewable tablet Take 2 tablets by mouth once daily. Current Facility-Administered Medications on File Prior to Visit Medication perflutren lipid microspheres 1.3 mL in NaCl (PF) 0.9% 10 mL injection (DEFINITY) sodium chloride 0.9 % (flush) 10 mL (BD POSIFLUSH) Social History Social History Tobacco Use Smoking status: Never Smokeless tobacco: Never Tobacco comments: ETS in childhood home, motrher smoker. Vaping Use Vaping Use: Never used Substance Use Topics Alcohol use: No Drug use: No EXAM: BP 126/82 Pulse 67 Temp 36.5 C (97.7 F) (Tympanic) Wt (!) 138.8 kg (306 lb) SpO2 96% BMI 41.50 kg/m General Appearance: Well appearing, alert, in no acute distress, well-hydrated, well nourished. and Obese. Lungs: Lungs clear to auscultation. No wheezing, rhonchi, rales.. Heart: RRR without murmur, gallop, or rubs. No ectopy. Extremities: Some clicking when moving b/l extremities. Good ROM, no pain in groin with ROM Musculoskeletal: Pain when lying back on exam table to examine groin pain. Possible arthritis radiating to groin from hip arthritis. Health Maintenance List Covid-19 Vaccine(1) Never done Shingrix Vaccine(1 of 2) Never done RSV Vaccine(1 - 1-dose 60+ series) Never done BP Controlled (<130/80) due on 05/16/2021 DTaP,Tdap,Td Vaccine(3 - Td or Tdap) due on 03/09/2022 Colorectal Cancer Screening due on 02/04/2023 Influenza Vaccine(1) due on 03/12/2023 Advance Directive Discussion due on 07/12/2023 Depression Assessment due on 07/12/2023 LDL Cholesterol due on 02/03/2024 Annual PCP Team Chronic Disease Visit due on 02/17/2024 Diabetes Screening due on 02/02/2026 Lipid Screening due on 02/03/2028 Prostate Cancer Screening Discussion due on 02/03/2028 Hepatitis C Screening Completed Pneumococcal Vaccine: 65+ Completed Data reviewed Appointment on 08/17/2023 Component Date Value Protein, Total 08/17/2023 7.1 Albumin 08/17/2023 4.6 Calcium, Total 08/17/2023 10.1 Bilirubin, Total 08/17/2023 1.4 (H) Alkaline Phosphatase 08/17/2023 83 AST 08/17/2023 35 ALT 08/17/2023 40 Glucose 08/17/2023 119 (H) BUN 08/17/2023 18 Creatinine 08/17/2023 1.20 Sodium 08/17/2023 141 Potassium 08/17/2023 3.9 Chloride 08/17/2023 104 CO2 08/17/2023 27 Anion Gap 08/17/2023 10 Estimated Glomerular Christian* 08/17/2023 67 Hemoglobin A1C 08/17/2023 5.7 (H) Estimated Average Glucose 08/17/2023 117 Cholesterol, Total 08/17/2023 183 Triglyceride 08/17/2023 124 HDL Cholesterol 08/17/2023 46 Non HDL Cholesterol 08/17/2023 137 (H) Fasting Time 08/17/2023 13 VLDL Cholesterol 08/17/2023 25 TC:HDL Ratio 08/17/2023 3.98 LDL Cholesterol 08/17/2023 112 (H) LDL:HDL Ratio 08/17/2023 2.43 WBC 08/17/2023 6.09 RBC 08/17/2023 4.87 Hemoglobin 08/17/2023 15.4 Hematocrit 08/17/2023 45.9 MCV 08/17/2023 94.3 MCH 08/17/2023 31.6 MCHC 08/17/2023 33.6 RDW-CV 08/17/2023 13.0 Platelet Count 08/17/2023 206 MPV 08/17/2023 10.5 Absolute nRBC 08/17/2023 <0.01 ASSESSMENT/PLAN: 1. Essential hypertension, benign - ICD9: 401.1, ICD10: I10 (primary diagnosis) - Controlled - Continue current medications - Recommend home blood pressure monitoring, to bring results to next visit - Encouraged sodium restriction, DASH or Mediterranean diet - Recommend regular aerobic exercise 2. History of aortic valve replacement with bioprosthetic valve - ICD9: V42.2, ICD10: Z95.3 - See Cardio 3. Hyperlipidemia LDL goal <130 - ICD9: 272.4, ICD10: E78.5 - Controlled - Continue current medications - Counseled on healthy diet and regular exercise 4. Impaired fasting glucose - ICD9: 790.21, ICD10: R73.01 - Monitor with labs 5. Sleep disorder - ICD9: 780.50, ICD10: G47.9 - Continue current medication regimen. 6. ED (erectile dysfunction) of organic origin - ICD9: 607.84, ICD10: N52.9 - Continue current medication regimen. 7. Benign prostatic hyperplasia, unspecified whether lower urinary tract symptoms present - ICD9: 600.00, ICD10: N40.0 - Stable 8. S/P TKR (total knee replacement), bilateral - ICD9: V43.65, ICD10: Z96.653 - Stable 9. Bilateral groin pain - ICD9: 789.03, 789.04, ICD10: R10.31, R10.32 - Possibly arthritis related due to hip - Monitor 10. Cough, unspecified type - ICD9: 786.2, ICD10: R05.9 - continue to monitor 6 mo f/u with labs. I agree with the Chief Complaint, ROS, and Past Histories independently gathered by the clinical senior office support assistant sosa and the remaining scribed note accurately describes my personal service to the patient. Medical Decision Making: Problems: Moderate: 2+ stable chronic illnesses Data: Unique test result(s) reviewed: 3+ Unique test(s) ordered: 3+ Risk: Moderate: Drug management Medical Decision Making Level: 4 - Moderate Deshawn Noel MD The documentation for this note was completed by Gloria Miller Ma acting as scribe for Deshawn Noel MD. August 19, 2023 9:26 AM. Gloria Miller Ma documented in this encounter [facility] [place] 08-16-2023 Miscellaneous Notes Does pt need any blood work before upcoming appt? Ana Baltazar Ma documented in this encounter [facility] [place] 06-04-2023 Instructions Carla Bridges APRN.BOARD WRITER - 06/04/2023 12:10 PM EST ASSESSMENT/PLAN: 1. Bilateral impacted cerumen - ICD9: 380.4, ICD10: H61.23 - REMOVAL OF IMPACTED CERUMEN - INSTRUMENTATION Cerumen removed via irrigation by MA, patient tolerated procedure well. Post procedure bilateral ear canals are clear and TM is well visualized with bony landmarks intact and no sign of inflammation/infection. - Follow-up with your PCP in 3-5 days if symptoms have not improved or sooner if symptoms worsen Carla Bridges APRN.BOARD WRITER Ear wax buildup and blockage (cerumen impaction) What is ear wax? Ear wax, also called cerumen, is made by the body to protect the ears. The ear wax has both lubricating and antibacterial properties. Most of the time, the old ear wax is moved through the ear canal by motions from chewing and other jaw movements and as the skin of the ear canal grows from the inside out. At that time, it reaches the outside of the ear and flakes off. Ear wax is produced in the outer part of the ear canal, not deep inside the ear. What does it mean when ear wax becomes impacted? We say that ear wax is impacted when it has built up in the ear canal to such a point that there may be signs that something is not quite right. It is important to note that, for most people, ears might never need cleaning--they are designed to clean themselves. Ear wax buildup and blockage often happens when people use items like cotton swabs or adelso pins to try to clean their ears. This only pushes the ear wax farther into the ears and can also cause injury to the ear. What are the symptoms of ear wax impaction? A feeling of fullness in the ear Pain in the ear Difficulty hearing, which may continue to worsen Ringing in the ear (tinnitus) A feeling of itchiness in the ear Discharge from the ear Odor coming from the ear Dizziness Who experiences ear wax buildup? Ear wax buildup can happen to anyone. However, it is more likely to occur in: People who use hearing aids or ear plugs People who put cotton swabs or other items into their ears Older people People with developmental disabilities People with ear canals shaped in such a way as to interfere with natural wax removal How is ear wax impaction diagnosed? Your health care provider can look into your ears with a special instrument, called an otoscope, to see if ear wax buildup is present. How is ear wax impaction treated? Ear wax can be removed in several ways; some of these methods can be done at home. Cleaning the outside of the ear by wiping with a cloth. Putting cerumenolytic solutions (solutions to dissolve wax) into the ear canal--these solutions include mineral oil, baby oil, glycerin, peroxide-based ear drops (such as Debrox ), hydrogen peroxide, and saline solution. Irrigating or syringing the ear--this involves using a syringe to rinse out the ear canal with water or saline, generally after the wax has been softened or dissolved by a cerumenolytic. Removing the wax manually using special instruments--this should be done only by a health care provider who might use a cerumen spoon, forceps, or suction device. Note: Irrigation should not be done by or to any persons who have, or suspect they have, a perforation (hole) in their eardrum or tubes in the affected ear(s). Commercially available suction devices for home use (such as Wax-Vac) are not effective for most people and are therefore not recommended. Ear candles, which are advertised as a natural method to remove ear wax, are not only ineffective but can cause injury to the ear. Injuries include baptiste to the external ear and ear canal and perforation of the eardrum. What are possible complications of ear wax impaction? If left untreated, excessive ear wax may cause symptoms of ear wax impaction to become worse. These symptoms might include hearing loss, ear irritation, etc. A build-up of ear wax might also make it difficult to see into the ear, which may result in potential problems going undiagnosed. How can ear wax impaction be prevented? Do not stick anything into your ears to clean them. Use cotton swabs only on the outside of the ear. If you have a severe enough problem with ear wax that you need to have it removed by a health professional more than once a year, discuss with them which method of prevention (if any) may work best for you. References [employer] [employer]--Head and Neck [employer]. Earwax Accessed 06/28/2013. [employer]. Nothing Smaller Than Your Elbow, Please Accessed 06/28/2013. Copyright 4786-1873 [facility]. All rights reserved This information is provided by the [facility] and is not intended to replace the medical advice of your doctor or health care provider. Please consult your health care provider for advice about a specific medical condition. For additional health information, please contact the Center for Consumer Health Information at the [facility] or toll-free extension [phone]. If you prefer, you may visit [email or web address] or [email or web address]. This document was last reviewed on: 2017 documented in this encounter [facility] 06-04-2023 History of Present illness Narrative Subjective HPI Bonny Redding Jr. is a 67 year old male who presents with bilateral ears plugged with wax. He states this is a common occurrence for him. He has had some trouble hearing out of both ears for the past week. He denies pain or associated URI symptoms. Review of Systems Constitutional: Negative for fever. HENT: Positive for hearing loss. Negative for congestion, ear pain and sore throat. Respiratory: Negative for cough. Cardiovascular: Negative. BP 134/82 Pulse (!) 55 Temp (!) 35.7 C (96.2 F) Resp 21 Wt (!) 136.8 kg (301 lb 9.6 oz) SpO2 97% BMI 40.90 kg/m PAST MEDICAL HISTORY Diagnosis Date Aortic stenosis with bicuspid valve 03/01/2015 Benign neoplasm of colon Chronic cough 05/16/2020 No resolution when ACEi stopped. Negative methecholine challenge 09/2020. Coronary artery disease Essential hypertension, benign 15 yr Obesity, unspecified Other and unspecified hyperlipidemia 15 yrs Peripheral neuropathy 11/29/2014 Personal history of colonic polyps Snoring Unspecified sleep apnea 2007 uses CPAP Vitamin D deficiency 2018 PAST SURGICAL HISTORY Procedure Laterality Date CATARACT EXTRACTION HX 2014 COLONOSCOPY FLX DX W/COLLJ SPEC WHEN PFRMD 08/31/2007 Colonoscopy COLONOSCOPY FLX DX W/COLLJ SPEC WHEN PFRMD N/A 10/12/2016 COLONOSCOPY W/BIOPSY SINGLE/MULTIPLE 07/20/2011 EXC LESION TDN SHTH/JT CAPSL HAND/FNGR 02/24/2013 Excision ganglion cyst left middle finger HEART SURGERY HX LAPAROSCOPY SURG RPR INITIAL INGUINAL HERNIA 05/17/2008 RIGHT PAST SURGICAL HISTORY OF tonsils and adenoids removed PAST SURGICAL HISTORY OF hernia PAST SURGICAL HISTORY OF 04/18/2008 right meniscus repair PAST SURGICAL HISTORY OF 07/2010 right foot surgery PAST SURGICAL HISTORY OF Right 07/28/2022 Right carpometacarpal arthroplasty with flexor carpi radialis interposition, first dorsal compartment tenosynovectomy right partial trapezodi excision RPR UMBILICAL HRNA 5 YRS/> REDUCIBLE 05/17/2008 SEPTOPLASTY/SUBMUCOUS RESECJ W/WO CARTILAGE GRF 2004 Septoplasty TOTAL KNEE REPLACEMENT Left 11/13/2022 Dr. Jackson Mera ALLERGIES Patient has no known allergies. MEDICATIONS losartan (COZAAR) 100 mg tablet^Take 1 tablet by mouth once daily.^Disp: 90 tablet^Rfl: 3 simvastatin (ZOCOR) 20 mg tablet^Take 1 tablet by mouth daily at bedtime.^Disp: 90 tablet^Rfl: 3 Tadalafil (CIALIS) 20 mg tab(s)^Take 1 tablet by mouth once daily.^Disp: 8 tablet^Rfl: 11 (Patient taking differently: Take 20 mg by mouth as needed.) Amoxicillin 500 mg tablet^Take 4 pills day of dental appointment^Disp: ^Rfl: OTC PRODUCT^Vitamin D 500mg daily^Disp: ^Rfl: aspirin 81 mg chewable tablet^Take 2 tablets by mouth once daily.^Disp: 120 tablet^Rfl: 0 FAMILY HISTORY Problem Relation Age of Onset Alzheimer's Disease Mother age 76-COPD COPD Mother other (Hypertension, Hyperlipidemia) Mother Coronary Artery Disease Father 60 valve replacement Prostate Cancer Father other (PARKINSON) Father Prostate Cancer Paternal Uncle Prostate Cancer Maternal Grandfather Hypertension Sister Social History Tobacco Use Smoking status: Never Smokeless tobacco: Never Tobacco comments: ETS in childhood home, motrher smoker. Vaping Use Vaping Use: Never used Substance Use Topics Alcohol use: No Drug use: No Objective Physical Exam Vitals and nursing note reviewed. Constitutional: Appearance: Normal appearance. HENT: Head: Comments: Bilateral ears: Cerumen impairs exam of clinically significant portions of the external auditory canal, tympanic membrane or middle ear condition. Right Ear: There is impacted cerumen. Left Ear: There is impacted cerumen. Mouth/Throat: Pharynx: Uvula midline. Cardiovascular: Rate and Rhythm: Normal rate. Pulmonary: Effort: Pulmonary effort is normal. Musculoskeletal: Cervical back: Neck supple. Skin: General: Skin is warm and dry. Findings: No erythema or rash. Neurological: Mental Status: He is alert. ASSESSMENT/PLAN: 1. Bilateral impacted cerumen - ICD9: 380.4, ICD10: H61.23 - REMOVAL OF IMPACTED CERUMEN - INSTRUMENTATION - Cerumen removed via irrigation by KEL, patient tolerated procedure well. Post procedure bilateral ear canals are clear and TM is well visualized with bony landmarks intact and no sign of inflammation/infection. - Follow-up with your PCP in 3-5 days if symptoms have not improved or sooner if symptoms worsen Carla Bridges APRN.BOARD WRITER documented in this encounter [facility] 06-04-2023 Nurse Note Ambulatory Ear Lavage Pre-treatment: Warm water Treatment: Both ears Equipment and Irrigation solution and Volume used: Single use syringe with single use irrigation tip Water Return flow appearance: Brown Patient tolerated procedure: yes Tympanic membrane assessment: Tympanic membrane assessed by LIP pre and post procedure Carla Bridges APRN. BOARD WRITER documented in this encounter [facility] 04-13-2023 History of Present illness Narrative Images from the original note were not included. Heart, V[facility] [place] [facility] Department of Cardiovascular Medicine SECTION OF CLINICAL CARDIOLOGY OUTPATIENT VISIT DATE April 13, 2023 OUTPATIENT VISIT TYPE ESTABLISHED PRIMARY CARE PHYSICIAN: Deshawn Noel [address] [place] [address] REFERRING PHYSICIAN: No referring provider defined for this encounter. CHIEF COMPLAINT: follow up of aortic valve replacement HISTORY OF PRESENT ILLNESS: Mr. Redding is a 67 year old male who presents today for a cardiovascular medicine follow-up visit . Since his last clinic visit he has been in good cardiovascular health. He has uneventfully gone through knee replacements and has recovered well from the same. He does not have any exercise intolerance and denies chest pain, angina, or sob. He denies chest pain, shortness of breath, orthopnea, cough, edema, palpitations, PND, lightheadedness or syncope. PAST CARDIAC HISTORY: PAST MEDICAL HISTORY Diagnosis Date Aortic stenosis with bicuspid valve 03/01/2015 Benign neoplasm of colon Chronic cough 05/16/2020 No resolution when ACEi stopped. Negative methecholine challenge 09/2020. Coronary artery disease Essential hypertension, benign 15 yr Obesity, unspecified Other and unspecified hyperlipidemia 15 yrs Peripheral neuropathy 11/29/2014 Personal history of colonic polyps Snoring Unspecified sleep apnea 2007 uses CPAP Vitamin D deficiency 2018 PAST SURGICAL HISTORY Procedure Laterality Date CATARACT EXTRACTION HX 2014 COLONOSCOPY FLX DX W/COLLJ SPEC WHEN PFRMD 08/31/2007 Colonoscopy COLONOSCOPY FLX DX W/COLLJ SPEC WHEN PFRMD N/A 10/12/2016 COLONOSCOPY W/BIOPSY SINGLE/MULTIPLE 07/20/2011 EXC LESION TDN SHTH/JT CAPSL HAND/FNGR 02/24/2013 Excision ganglion cyst left middle finger HEART SURGERY HX LAPAROSCOPY SURG RPR INITIAL INGUINAL HERNIA 05/17/2008 RIGHT PAST SURGICAL HISTORY OF tonsils and adenoids removed PAST SURGICAL HISTORY OF hernia PAST SURGICAL HISTORY OF 04/18/2008 right meniscus repair PAST SURGICAL HISTORY OF 07/2010 right foot surgery PAST SURGICAL HISTORY OF Right 07/28/2022 Right carpometacarpal arthroplasty with flexor carpi radialis interposition, first dorsal compartment tenosynovectomy right partial trapezodi excision RPR UMBILICAL HRNA 5 YRS/> REDUCIBLE 05/17/2008 SEPTOPLASTY/SUBMUCOUS RESECJ W/WO CARTILAGE GRF 2004 Septoplasty TOTAL KNEE REPLACEMENT Left 11/13/2022 Dr. Jackson Mera SOCIAL HISTORY Social History Tobacco Use Smoking status: Never Smokeless tobacco: Never Tobacco comments: ETS in childhood home, motrher smoker. Vaping Use Vaping Use: Never used Substance Use Topics Alcohol use: No Drug use: No FAMILY HISTORY Problem Relation Age of Onset Alzheimer's Disease Mother age 76-COPD COPD Mother other (Hypertension, Hyperlipidemia) Mother Coronary Artery Disease Father 60 valve replacement Prostate Cancer Father other (PARKINSON) Father Prostate Cancer Paternal Uncle Prostate Cancer Maternal Grandfather Hypertension Sister Patient-Entered Questionnaire Scores Patient Entered Questionnaires 04/06/2023 Average hours of sleep per day 8 Diagnosed with Sleep Apnea Yes Average hours of PAP use per night 8 Insomnia Severity Index (ALEXANDER) 04/06/2023 Score 1 (No clinically significant insomnia) PROMIS Global Health - (T-Scores - the mean of general population = 50. Five points is a clinically meaningful difference.) 02/16/2022 01/05/2023 04/06/2023 Physical T-Score 57.7 42.3 57.7 Mental T-Score 56 56 62.5 ALLERGIES: ALLERGIES No Known Allergies MEDICATIONS: simvastatin (ZOCOR) 20 mg tablet^Take 1 tablet by mouth daily at bedtime.^Disp: 90 tablet^Rfl: 3 losartan (COZAAR) 50 mg tablet^Take 1 tablet by mouth once daily.^Disp: 90 tablet^Rfl: 3 Tadalafil (CIALIS) 20 mg tab(s)^Take 1 tablet by mouth once daily.^Disp: 8 tablet^Rfl: 11 (Patient taking differently: Take 20 mg by mouth as needed.) Amoxicillin 500 mg tablet^Take 4 pills day of dental appointment^Disp: ^Rfl: OTC PRODUCT^Vitamin D 500mg daily^Disp: ^Rfl: aspirin 81 mg chewable tablet^Take 2 tablets by mouth once daily.^Disp: 120 tablet^Rfl: 0 PHYSICAL EXAMINATION: BP 163/93 (BP Site: Left Arm, BP Position: Sitting, BP Cuff Size: Regular Adult) Pulse (!) 58 Resp 16 Ht 182.9 cm (6') Wt 133.4 kg (294 lb) SpO2 97% BMI 39.87 kg/m General: Well appearing, in no acute distress. Skin: No clubbing, no cyanosis. Eyes: Extra ocular movements intact Oropharynx: Teeth in good repair. Neck: No jugular venous distention, no carotid bruits, carotids have a normal upstroke, no palpable thyromegaly. Lungs: Clear to auscultation bilaterally, no wheezing or rhonchi. Heart: Regular rhythm, PMI not displaced, S1, S2 normal, no S3, no S4, systolic murmur in LVOT Abdomen: Soft, nontender, bowel sounds normal, no palpable organomegaly, no bruits. Extremities: No peripheral edema . Grade 2/4 distal pulses bilaterally. Neuro: Oriented to person, place and time, alert, cooperative, gait coordinated. CARDIOVASCULAR MEDICINE TESTING: ECHO CONCLUSIONS: - Exam indication: AVR 2017 - The left ventricle is normal in size. Left ventricular systolic function is normal. EF = 54 5% (2D biplane) - The right ventricle is normal in size. Right ventricular systolic function is normal. - The visualized aorta is dilated with a maximal dimension of 4.1 cm. - Silvia-Saleh prosthetic aortic valve (size #27). There is no aortic valve regurgitation. The peak gradient is 24 mmHg, the mean gradient is 14 mmHg and the dimensionless valve index is 0.41. Prior peeak/mean gradients 28/15mmhg. - Exam was compared with the prior echocardiographic exam performed on 04/09/2020. Similar gradients. EKG Diagnosis: SINUS BRADYCARDIA INCOMPLETE LEFT BUNDLE BRANCH BLOCK BORDERLINE ECG IMPRESSION: Mr. Redding is a 67 year old male who is doing well following his aortic valve replacement. No prosthetic valve issues noted PLAN AND RECOMMENDATIONS: Increase dosage of losartan. Follow up BP with PCP on next visit Endocarditis prophylaxis RTC for follow up in 1 year CONTACT INFORMATION: Mac Lake MD, FACC, DENA Mir and [facility] Department of Cardiovascular Medicine Heart and Vascular [place] [facility] Desk [place] [address] Office - [phone] extension [phone] Office Appointments: [phone] extension [phone] documented in this encounter [facility] 03-01-2023 Miscellaneous Notes Type of form: [facility]. CPAP replacement request Rx Form received via fax When form is completed, Fax form to [phone] Form has been forwarded to Physician Desk: Dr. Bert Miller Ma documented in this encounter [facility] 02-16-2023 History of Present illness Narrative Medical B eligibilty date 08/11/2021 Date of last exam 2021 Pt c/o left side groin pain, not sure if this is due to his hip or if he has another hernia. Hx of hernia to both sides of groin in the past, repaired. He states the pain might be due to how he gets up due to his left knee issues. He is scheduled to have left knee surgery done within the next week or so. PAST MEDICAL HISTORY Diagnosis Date Aortic stenosis with bicuspid valve 03/01/2015 Benign neoplasm of colon Chronic cough 05/16/2020 No resolution when ACEi stopped. Negative methecholine challenge 09/2020. Coronary artery disease Essential hypertension, benign 15 yr Obesity, unspecified Other and unspecified hyperlipidemia 15 yrs Peripheral neuropathy 11/29/2014 Personal history of colonic polyps Snoring Unspecified sleep apnea 2006 uses CPAP Vitamin D deficiency 2017 PAST SURGICAL HISTORY Procedure Laterality Date CATARACT EXTRACTION HX 2013 COLONOSCOPY FLX DX W/COLLJ SPEC WHEN PFRMD 08/31/2007 Colonoscopy COLONOSCOPY FLX DX W/COLLJ SPEC WHEN PFRMD N/A 10/12/2016 COLONOSCOPY W/BIOPSY SINGLE/MULTIPLE 07/20/2011 EXC LESION TDN SHTH/JT CAPSL HAND/FNGR 02/24/2013 Excision ganglion cyst left middle finger HEART SURGERY HX LAPAROSCOPY SURG RPR INITIAL INGUINAL HERNIA 05/17/2008 RIGHT PAST SURGICAL HISTORY OF tonsils and adenoids removed PAST SURGICAL HISTORY OF hernia PAST SURGICAL HISTORY OF 04/18/2008 right meniscus repair PAST SURGICAL HISTORY OF 07/2010 right foot surgery PAST SURGICAL HISTORY OF Right 07/28/2022 Right carpometacarpal arthroplasty with flexor carpi radialis interposition, first dorsal compartment tenosynovectomy right partial trapezodi excision RPR UMBILICAL HRNA 5 YRS/> REDUCIBLE 05/17/2008 SEPTOPLASTY/SUBMUCOUS RESECJ W/WO CARTILAGE GRF 2004 Septoplasty TOTAL KNEE REPLACEMENT Left 11/13/2022 Dr. Jackson Mera Patient has no known allergies. Current Outpatient Medications Medication Sig simvastatin (ZOCOR) 20 mg tablet Take 1 tablet by mouth daily at bedtime. losartan (COZAAR) 50 mg tablet Take 1 tablet by mouth once daily. Tadalafil (CIALIS) 20 mg tab(s) Take 1 tablet by mouth once daily. (Patient taking differently: Take 20 mg by mouth as needed.) Amoxicillin 500 mg tablet Take 4 pills day of dental appointment OTC PRODUCT Vitamin D 500mg daily aspirin 81 mg chewable tablet Take 2 tablets by mouth once daily. traZODone (DESYREL) 50 mg tablet Take 1 tablet by mouth daily at bedtime. Current Facility-Administered Medications Medication Dose Route Frequency perflutren lipid microspheres 1.3 mL in NaCl (PF) 0.9% 10 mL injection (DEFINITY) INTRAVENOUS DIRECTED PRN sodium chloride 0.9 % (flush) 10 mL (BD POSIFLUSH) 10 mL INTRAVENOUS DIRECTED PRN Medications reviewed: Yes FAMILY HISTORY Problem Relation Age of Onset Alzheimer's Disease Mother age 76-COPD COPD Mother other (Hypertension, Hyperlipidemia) Mother Coronary Artery Disease Father 60 valve replacement Prostate Cancer Father other (PARKINSON) Father Prostate Cancer Paternal Uncle Prostate Cancer Maternal Grandfather Hypertension Sister Social History Tobacco Use Smoking status: Never Smokeless tobacco: Never Tobacco comments: ETS in childhood home, motrher smoker. Vaping Use Vaping Use: Never used Substance Use Topics Alcohol use: No Drug use: No Bonny works out regularly 3 times per week with stationary bicycling and [employer] hop trainer. He watches his diet for sodium, low fat and low cholesterol generally not very much. List of current specialists seen: Cardiovascular - Dr. Lake Ortho - Dr. Jackson Mera Eye- Dr. Colindres End of Live Planning discussed including patients advanced directive wishes: Yes I am willing to follow Bonny advanced directives. Depression screen He in the past two weeks denies having felt down, depressed, hopeless, or with little interest or pleasure in doing things. Depression screening tool completed and reviewed. Based on score and interview, patient is not at risk for depression. Screening tool discussed with patient, and I recommended no further intervention at this time. Functional Ability/Safety Screen 1. Was the patient's timed Up and Go test unsteady or longer than 30 seconds? No 2. Does the patient need help with the phone, transportation, shopping,preparing meals, housework, laundry, medications or managing money? No 3. Does your home have rungs in the hallway, lack of grab bars in the bathroom, lack of handrails on the stairs or have poor lighting? No Hearing Evaluation: wears hearing aids and normal PHYSICAL EXAM BP 128/80 Pulse 78 Resp 18 Ht 185.4 cm (6' 1) Wt (!) 136.5 kg (301 lb) BMI 39.71 kg/m CV: RRR with systolic murmur Lungs clear Left groin: no hernias felt Visual acuity: OD: 20/20 OS: 20/ 25 OU: 20/20 With glasses Appointment on 02/02/2023 Component Date Value Cholesterol, Total 02/02/2023 156 Triglyceride 02/02/2023 84 HDL Cholesterol 02/02/2023 45 Non HDL Cholesterol 02/02/2023 111 Fasting Time 02/02/2023 13 VLDL Cholesterol 02/02/2023 17 TC:HDL Ratio 02/02/2023 3.47 LDL Cholesterol 02/02/2023 94 LDL:HDL Ratio 02/02/2023 2.09 Protein, Total 02/02/2023 6.8 Albumin 02/02/2023 4.5 Calcium, Total 02/02/2023 9.8 Bilirubin, Total 02/02/2023 0.8 Alkaline Phosphatase 02/02/2023 91 AST 02/02/2023 29 ALT 02/02/2023 26 Glucose 02/02/2023 115 (H) BUN 02/02/2023 17 Creatinine 02/02/2023 1.08 Sodium 02/02/2023 141 Potassium 02/02/2023 4.1 Chloride 02/02/2023 104 CO2 02/02/2023 26 Anion Gap 02/02/2023 11 Estimated Glomerular Christian* 02/02/2023 76 Hemoglobin A1C 02/02/2023 5.6 Estimated Average Glucose 02/02/2023 114 PSA 02/02/2023 0.65 ASSESSMENT/PLAN: 1. Encounter for Medicare annual wellness exam - ICD9: V70.0, ICD10: Z00.00 (primary diagnosis) - Counseled on healthy diet and regular exercise - Discussed need for and benefit of weight loss. BMI 39.71 kg/(m^2) - Colorectal cancer screening recommended - agrees to Colonoscopy - Depression screening tool completed and reviewed with patient. Based on score and interview, patient is not at risk for depression and recommended no further intervention at this time. - Follow up for annual exam in one year 2. Left groin pain - ICD9: 789.04, ICD10: R10.32 - no tx needed, no hernia felt - Follow with Ortho Follow up in 1 year for medicare wellness exam. Follow up in 6 months for routine visit. Deshawn Noel MD The documentation for this note was completed by Ana Baltazar Ma acting as scribe for Deshawn Noel MD. February 16, 2023 8:15 AM. Ana Baltazar Ma documented in this encounter [facility] 01-25-2023 Miscellaneous Notes The following approved medication requests have been transmitted electronically. Requested Prescriptions Pending Prescriptions Disp Refills simvastatin (ZOCOR) 20 mg tablet 90 tablet 3 Sig: Take 1 tablet by mouth daily at bedtime. Ye Sharma APRN.DILIP Patient phones requesting refills as follows: Requested Prescriptions Pending Prescriptions Disp Refills simvastatin (ZOCOR) 20 mg tablet 90 tablet 3 Sig: Take 1 tablet by mouth daily at bedtime. SHANA-01/05/23 Labs-10/27/22 NOV-02/16/23 Please review and advise. Amairani Moore LPN documented in this encounter [facility] 01-05-2023 History of Present illness Narrative Chief Complaint Patient presents with: Sleep Problem HPI Bonny Redding Jr. is a 67 year old male who presents here today for an acute visit. Pt here today for an acute visit. Last seen 02/18/22. Pt c/o of sleeping issues since having knee L TKR surgery on November 13, [address] Jackson Mera. At this time the knee is doing great, surgery went well. Pt reports about two weeks ago he started having issues with sleeping through the night, but notes that he ran out of Oxycodone IR 5 mg medication at that time. Notes that he was splitting the pills to help him sleep at night, realized this was not a alf solution. Denies any prior sleep issues before the procedure. Currently using Tylenol for pain for his R knee. He's currently scheduled for R TKR on 02/19/23. Pt at this time states he's waking up multiple times a night due to pain, other times he's just waking up to wake up for unknown reasons. Will get up to urinate, but only due to being awake. Has tried using Acetaminophen PM, but didn't really notice a significant difference. Tried Melatonin and only felt drowsy for an hour. Past medical history, appointments, medications, allergies reviewed. Previous Medical History PAST MEDICAL HISTORY Diagnosis Date Aortic stenosis with bicuspid valve 03/01/2015 Benign neoplasm of colon Chronic cough 05/16/2020 No resolution when ACEi stopped. Negative methecholine challenge 09/2020. Coronary artery disease Essential hypertension, benign 15 yr Obesity, unspecified Other and unspecified hyperlipidemia 15 yrs Peripheral neuropathy 11/29/2014 Personal history of colonic polyps Snoring Unspecified sleep apnea 2007 uses CPAP Vitamin D deficiency 2017 Previous Surgical History PAST SURGICAL HISTORY Procedure Laterality Date CATARACT EXTRACTION HX 2014 COLONOSCOPY FLX DX W/COLLJ SPEC WHEN PFRMD 08/31/2007 Colonoscopy COLONOSCOPY FLX DX W/COLLJ SPEC WHEN PFRMD N/A 10/12/2016 COLONOSCOPY W/BIOPSY SINGLE/MULTIPLE 07/20/2011 EXC LESION TDN SHTH/JT CAPSL HAND/FNGR 02/24/2013 Excision ganglion cyst left middle finger HEART SURGERY HX LAPAROSCOPY SURG RPR INITIAL INGUINAL HERNIA 05/17/2008 RIGHT PAST SURGICAL HISTORY OF tonsils and adenoids removed PAST SURGICAL HISTORY OF hernia PAST SURGICAL HISTORY OF 04/18/2008 right meniscus repair PAST SURGICAL HISTORY OF 07/2010 right foot surgery PAST SURGICAL HISTORY OF Right 07/28/2022 Right carpometacarpal arthroplasty with flexor carpi radialis interposition, first dorsal compartment tenosynovectomy right partial trapezodi excision RPR UMBILICAL HRNA 5 YRS/> REDUCIBLE 05/17/2008 SEPTOPLASTY/SUBMUCOUS RESECJ W/WO CARTILAGE GRF 2005 Septoplasty Family History FAMILY HISTORY Problem Relation Age of Onset Alzheimer's Disease Mother age 76-COPD COPD Mother other (Hypertension, Hyperlipidemia) Mother Coronary Artery Disease Father 60 valve replacement Prostate Cancer Father other (PARKINSON) Father Prostate Cancer Paternal Uncle Prostate Cancer Maternal Grandfather Hypertension Sister Patient Allergies ALLERGIES No Known Allergies Current Medications Current Outpatient Medications on File Prior to Visit Medication Sig oxyCODONE IR (ROXICODONE) 5 mg immediate release tablet Take 5-10 mg by mouth. losartan (COZAAR) 50 mg tablet Take 1 tablet by mouth once daily. metoprolol tartrate, short acting, (LOPRESSOR) 25 mg tablet Take 0.5 tablets by mouth twice daily. (Patient not taking: Reported on 09/30/2022) simvastatin (ZOCOR) 20 mg tablet Take 1 tablet by mouth daily at bedtime. Tadalafil (CIALIS) 20 mg tab(s) Take 1 tablet by mouth once daily. (Patient taking differently: Take 20 mg by mouth as needed.) Amoxicillin 500 mg tablet Take 4 pills day of dental appointment OTC PRODUCT Vitamin D 500mg daily aspirin 81 mg chewable tablet Take 2 tablets by mouth once daily. Current Facility-Administered Medications on File Prior to Visit Medication perflutren lipid microspheres 1.3 mL in NaCl (PF) 0.9% 10 mL injection (DEFINITY) sodium chloride 0.9 % (flush) 10 mL (BD POSIFLUSH) Social History Social History Tobacco Use Smoking status: Never Smokeless tobacco: Never Tobacco comments: ETS in childhood home, motrher smoker. Vaping Use Vaping Use: Never used Substance Use Topics Alcohol use: No Drug use: No EXAM: BP 134/86 (BP Site: Left Arm, BP Position: Sitting, BP Cuff Size: Large Adult) Pulse 82 Resp 16 Wt 133.9 kg (295 lb 3.2 oz) BMI 40.60 kg/m General Appearance: Well appearing, alert, in no acute distress, well-hydrated, well nourished. and Obese. Lungs: Lungs clear to auscultation. No wheezing, rhonchi, rales.. Heart: RRR without murmur, gallop, or rubs. No ectopy. Health Maintenance List COVID-19 VACCINE(1) Never done SHINGRIX VACCINE(1 of 2) Never done BP CONTROLLED (<130/80) due on 05/16/2021 DTAP,TDAP,TD(3 - Td or Tdap) due on 03/09/2022 ADVANCE DIRECTIVE DISCUSSION due on 07/12/2022 DEPRESSION ASSESSMENT Never done LDL CHOLESTEROL due on 02/04/2023 COLORECTAL CANCER SCREENING due on 02/04/2023 ANNUAL PCP TEAM CHRONIC DISEASE VISIT due on 02/18/2023 INFLUENZA(Season Ended) due on 03/12/2023 DIABETES SCREEN due on 02/04/2025 PROSTATE CANCER SCREENING DISCUSSION due on 09/05/2025 LIPID SCREEN due on 02/04/2027 HEPATITIS C SCREENING Completed PNEUMOCOCCAL: 65+ Completed Data reviewed None ASSESSMENT/PLAN: 1. Insomnia, unspecified type - ICD9: 780.52, ICD10: G47.00 (primary diagnosis) Will try Trazodone 50 mg qhs for short term assistance in sleep 2. Sleep disorder - ICD9: 780.50, ICD10: G47.9 - TRAZODONE 50 MG TABLET 3. Obesity, Class III, BMI 40-49.9 (morbid obesity) (HCC) - ICD9: 278.01, ICD10: E66.01 Lifestyle 4. Essential hypertension, benign - ICD9: 401.1, ICD10: I10 - Controlled - Continue current medications - Discussed need for and benefit of weight loss. BMI 40.60 kg/(m^2) 5. 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 - ICD9: 414.01, ICD10: I25.10 6. Arthritis of knee - ICD9: 716.96, ICD10: M17.10 Follow with Ortho Follow up prn; scheduled for vida in 2 months I agree with the Chief Complaint, ROS, and Past Histories independently gathered by the clinical senior office support assistant sosa and the remaining scribed note accurately describes my personal service to the patient. Medical Decision Making: Problems: Low: Acute, uncomplicated illness or injury Risk: Moderate: Drug management Medical Decision Making Level: 3 - Low Deshawn Noel MD The documentation for this note was completed by Gloria Miller Ma acting as scribe for Deshawn Noel MD. January 05, 2023 3:53 PM. Gloria Miller Ma documented in this encounter [facility] [place] 12-08-2022 History of Present illness Narrative Subjective HPI HPI Bonny Redding Jr. is a 67 year old male who presents today for CC of left ear clogged. This started few days ago. Has tried nothing for relief. Symptoms are worsened by nothing. Risk factors hx of cerumen impaction. Wears hearing aid in right ear only. Denies uri symptoms. .Patient presents with: Ear Problem: Left ear feels clogged x 4 days PAST MEDICAL HISTORY Diagnosis Date Aortic stenosis with bicuspid valve 03/01/2015 Benign neoplasm of colon Chronic cough 05/16/2020 No resolution when ACEi stopped. Negative methecholine challenge 09/2020. Coronary artery disease Essential hypertension, benign 15 yr Obesity, unspecified Other and unspecified hyperlipidemia 15 yrs Peripheral neuropathy 11/29/2014 Personal history of colonic polyps Snoring Unspecified sleep apnea 2007 uses CPAP Vitamin D deficiency 2018 PAST SURGICAL HISTORY Procedure Laterality Date CATARACT EXTRACTION HX 2014 COLONOSCOPY FLX DX W/COLLJ SPEC WHEN PFRMD 08/31/2007 Colonoscopy COLONOSCOPY FLX DX W/COLLJ SPEC WHEN PFRMD N/A 10/12/2016 COLONOSCOPY W/BIOPSY SINGLE/MULTIPLE 07/20/2011 EXC LESION TDN SHTH/JT CAPSL HAND/FNGR 02/24/2013 Excision ganglion cyst left middle finger HEART SURGERY HX LAPAROSCOPY SURG RPR INITIAL INGUINAL HERNIA 05/17/2008 RIGHT PAST SURGICAL HISTORY OF tonsils and adenoids removed PAST SURGICAL HISTORY OF hernia PAST SURGICAL HISTORY OF 04/18/2008 right meniscus repair PAST SURGICAL HISTORY OF 07/2010 right foot surgery PAST SURGICAL HISTORY OF Right 07/28/2022 Right carpometacarpal arthroplasty with flexor carpi radialis interposition, first dorsal compartment tenosynovectomy right partial trapezodi excision RPR UMBILICAL HRNA 5 YRS/> REDUCIBLE 05/17/2008 SEPTOPLASTY/SUBMUCOUS RESECJ W/WO CARTILAGE GRF 2005 Septoplasty ALLERGIES Patient has no known allergies. MEDICATIONS oxyCODONE IR (ROXICODONE) 5 mg immediate release tablet^Take 5-10 mg by mouth.^Disp: ^Rfl: losartan (COZAAR) 50 mg tablet^Take 1 tablet by mouth once daily.^Disp: 90 tablet^Rfl: 3 simvastatin (ZOCOR) 20 mg tablet^Take 1 tablet by mouth daily at bedtime.^Disp: 90 tablet^Rfl: 3 OTC PRODUCT^Vitamin D 500mg daily^Disp: ^Rfl: aspirin 81 mg chewable tablet^Take 2 tablets by mouth once daily.^Disp: 120 tablet^Rfl: 0 metoprolol tartrate, short acting, (LOPRESSOR) 25 mg tablet^Take 0.5 tablets by mouth twice daily.^Disp: 90 tablet^Rfl: 0 (Patient not taking: Reported on 09/30/2022) Tadalafil (CIALIS) 20 mg tab(s)^Take 1 tablet by mouth once daily.^Disp: 8 tablet^Rfl: 11 (Patient taking differently: Take 20 mg by mouth as needed.) Amoxicillin 500 mg tablet^Take 4 pills day of dental appointment^Disp: ^Rfl: FAMILY HISTORY Problem Relation Age of Onset Alzheimer's Disease Mother age 76-COPD COPD Mother other (Hypertension, Hyperlipidemia) Mother Coronary Artery Disease Father 60 valve replacement Prostate Cancer Father other (PARKINSON) Father Prostate Cancer Paternal Uncle Prostate Cancer Maternal Grandfather Hypertension Sister Social History Tobacco Use Smoking status: Never Smokeless tobacco: Never Tobacco comments: ETS in childhood home, motrher smoker. Vaping Use Vaping Use: Never used Substance Use Topics Alcohol use: No Drug use: No ROS Objective Blood pressure 142/82, pulse 60, temperature 37.1 C (98.7 F), temperature source Tympanic, resp. rate 16, weight 135.4 kg (298 lb 9.6 oz), SpO2 96 %. Physical Exam Constitutional: General: He is not in acute distress. Appearance: He is not toxic-appearing or diaphoretic. HENT: Head: Normocephalic and atraumatic. Right Ear: Hearing and external ear normal. Left Ear: Hearing and external ear normal. Ears: Comments: Initially unable to see bilat tm d/t cerumen impaction. Procedure: Provider/curette - right ear Nurse/lavage -left ear After procedure bilat canal clear and bilat tm normal Nose: Nose normal. Mouth/Throat: Lips: [place]. Mouth: Mucous membranes are moist. Pulmonary: Effort: Pulmonary effort is normal. No accessory muscle usage or respiratory distress. Neurological: Mental Status: He is alert and oriented to person, place, and time. ASSESSMENT/PLAN: 1. Bilateral impacted cerumen - ICD9: 380.4, ICD10: H61.23 Successful cerumen removal, bilat Discussed proper hear hygiene F/u for new/continuing s/s. - AMBULATORY EAR LAVAGE/IRRIGATION Aleksander Tomlinosn APRN.DILIP documented in this encounter [facility] [place] 09-18-2022 Miscellaneous Notes Faxed. Ana Baltazar Ma Form signed; last office visit printed Deshawn Noel MD Type of letter/form/fax request - pre op clearance Form received from fax on 1 floor and placed on MD desk (Dr. Noel) for completion. Completed form needs to be faxed to [facility] at [phone]. Pt is seeing Dr. Jackson Mera for Left total knee replacement. No surgery date as of yet. Last OV was Feb 2022 Route to [place] when form completed for processing documented in this encounter [facility] [place] 08-29-2022 Instructions Kylie Parikh APRN.DILIP - 08/29/2022 8:56 AM EST Rest, increase water intake Motrin or Tylenol as needed for fever or pain. Salt water gargles, chloraseptic spray or lozenges as needed for sore throat. Warm beverages, honey. Nasal saline spray as needed Cool mist humidifier at night A cold normally lasts 7-10 days. If your symptoms are lasting longer, develop fever, or worsening by that time instead of improving then return to clinic or follow up with PCP for re-evaluation. Tylenol (generic acetaminophen) 500 mg-2 tabs every 8 hrs. as needed for fever and aches Ibuprofen 600 mg (3-200mg tablets) every 6 hours -Mucinex (generic is fine) Guaifenesin 1200 mg twice daily to help with cough and to thin out mucus * Seek medical care immediately, call 911, go to ER if you have chest pain, difficulty breathing, shortness of breath, inability to swallow. documented in this encounter [facility] [place] 08-29-2022 History of Present illness Narrative Subjective The history is provided by the patient. No language path was used. HPI Bonny Redding Jr. is a 66 year old male who presents today for CC of sore throat, and sinus congestion and pressure for one day. He has not used any treatment or medications. No covid vaccines. Declines testing BP 142/80 Pulse (!) 53 Temp 36.4 C (97.6 F) Resp 20 Wt 134.7 kg (297 lb) SpO2 98% BMI 40.85 kg/m Social History Tobacco Use Smoking status: Never Smokeless tobacco: Never Tobacco comments: ETS in childhood home, motrher smoker. Vaping Use Vaping Use: Never used Substance Use Topics Alcohol use: No Drug use: No PAST MEDICAL HISTORY Diagnosis Date Aortic stenosis with bicuspid valve 03/01/2015 Benign neoplasm of colon Chronic cough 05/16/2020 No resolution when ACEi stopped. Negative methecholine challenge 09/2020. Coronary artery disease Essential hypertension, benign 15 yr Obesity, unspecified Other and unspecified hyperlipidemia 15 yrs Peripheral neuropathy 11/29/2014 Personal history of colonic polyps Snoring Unspecified sleep apnea 2007 uses CPAP Vitamin D deficiency 2017 I have confirmed and edited as necessary, the [facility] Review of Systems Constitutional: Negative for chills and fever. HENT: Positive for sore throat. Negative for congestion, ear pain and sinus pain. Respiratory: Negative for cough, sputum production, shortness of breath and wheezing. Cardiovascular: Negative for chest pain. Musculoskeletal: Negative for myalgias. Neurological: Negative for headaches. Objective Physical Exam Vitals and nursing note reviewed. Constitutional: Appearance: He is not toxic-appearing. HENT: Head: Normocephalic and atraumatic. Right Ear: Tympanic membrane, ear canal and external ear normal. Left Ear: Tympanic membrane, ear canal and external ear normal. Nose: No mucosal edema, congestion or rhinorrhea. Right Sinus: No maxillary sinus tenderness or frontal sinus tenderness. Left Sinus: No maxillary sinus tenderness or frontal sinus tenderness. Mouth/Throat: Pharynx: Uvula midline. No oropharyngeal exudate or posterior oropharyngeal erythema. Tonsils: No tonsillar abscesses. Cardiovascular: Rate and Rhythm: Normal rate and regular rhythm. Heart sounds: Normal heart sounds. Pulmonary: Effort: Pulmonary effort is normal. Breath sounds: Normal breath sounds. No decreased breath sounds, wheezing, rhonchi or rales. Lymphadenopathy: Head: Right side of head: No submental, submandibular, tonsillar or preauricular adenopathy. Left side of head: No submental, submandibular, tonsillar or preauricular adenopathy. Cervical: No cervical adenopathy. Right cervical: No superficial cervical adenopathy. Left cervical: No superficial cervical adenopathy. Neurological: Mental Status: He is alert. ASSESSMENT/PLAN: 1. Sore throat - ICD9: 462, ICD10: J02.9 (primary diagnosis) - suspect viral - Alere Strep Test NEGATIVE, no culture pending - STREP A MOLECULAR (POC) 2. URI, acute - ICD9: 465.9, ICD10: J06.9 - Discussed viral etiology and rationale for treatment. - Symptomatic treatment with prn analgesia - Supportive care with fluids and rest - Declines covid flu testing 3. Exposure to strep throat - ICD9: V01.89, ICD10: Z20.818 Strep is negative. Diagnosis and treatment plan were discussed and questions were answered to the patient's satisfaction. Pt acknowledged understanding of concepts and follow up plan. Specific signs and symptoms that would indicate the need for higher level of care were discussed in detail warranting prompt ER evaluation. Kylie Parikh APRN.BOARD WRITER documented in this encounter [facility] [place] 07-02-2022 History of Present illness Narrative CC: Patient presents with: Earwax: L ear x3 days HPI: Bonny Redding Jr. is a 66 year old male who presents to the office with complaint of ear symptoms for a few days. Symptoms are staying the same. Associated symptoms includes ear pressure . Denies headache, body aches, fever, nausea, vomiting , and diarrhea. Treatments tried include nothing so far. with no relief of symptoms. Sick contacts: unknown. History of asthma, frequent episodes of bronchitis, chronic bronchitis, bronchiectasis or COPD: No Smoker: No Seasonal/environmental allergies: No The ROS is otherwise negative. The patient's pmh, medications, allergies, and past visits are reviewed. PHYSICAL EXAM: BP 122/84 Pulse 71 Temp 36.6 C (97.8 F) Resp 20 Wt 136.1 kg (300 lb) SpO2 98% BMI 41.26 kg/m General appearance: alert, cooperative, pleasant, in no acute distress Head: Normocephalic Eyes: EOM's intact, conjunctiva pink and moist, no icterus, sclera white, non-injected Ears: Right ear: External ear/canal- cerumen impaction, . Left ear: External ear/canal- cerumen impaction, Oropharynx:moist without lesions, No erythema, exudates or tonsillar hypertrophy. Heart: Negative. RRR without obvious murmur, gallop, or rubs. No ectopy. Lungs: clear to auscultation, without rales or wheeze, good air exchange PAST MEDICAL HISTORY Diagnosis Date Aortic stenosis with bicuspid valve 03/01/2015 Benign neoplasm of colon Chronic cough 05/16/2020 No resolution when ACEi stopped. Negative methecholine challenge 09/2020. Coronary artery disease Essential hypertension, benign 15 yr Obesity, unspecified Other and unspecified hyperlipidemia 15 yrs Peripheral neuropathy 11/29/2014 Personal history of colonic polyps Snoring Unspecified sleep apnea 2006 uses CPAP Vitamin D deficiency 2018 PAST SURGICAL HISTORY Procedure Laterality Date CATARACT EXTRACTION HX 2014 COLONOSCOPY FLX DX W/COLLJ SPEC WHEN PFRMD 08/31/2007 Colonoscopy COLONOSCOPY FLX DX W/COLLJ SPEC WHEN PFRMD N/A 10/12/2016 COLONOSCOPY W/BIOPSY SINGLE/MULTIPLE 07/20/11 EXC LESION TDN SHTH/JT CAPSL HAND/FNGR 02/24/2013 Excision ganglion cyst left middle finger HEART SURGERY HX LAPAROSCOPY SURG RPR INITIAL INGUINAL HERNIA 05/17/08 RIGHT PAST SURGICAL HISTORY OF tonsils and adenoids removed PAST SURGICAL HISTORY OF hernia PAST SURGICAL HISTORY OF 04-18-08 right meniscus repair PAST SURGICAL HISTORY OF 07/2010 right foot surgery RPR UMBILICAL HRNA 5 YRS/> REDUCIBLE 05/17/08 SEPTOPLASTY/SUBMUCOUS RESECJ W/WO CARTILAGE GRF 2004 Septoplasty ALLERGIES Patient has no known allergies. MEDICATIONS losartan (COZAAR) 50 mg tablet Take 1 tablet by mouth once daily. metoprolol tartrate, short acting, (LOPRESSOR) 25 mg tablet Take 0.5 tablets by mouth twice daily. simvastatin (ZOCOR) 20 mg tablet Take 1 tablet by mouth daily at bedtime. Tadalafil (CIALIS) 20 mg tab(s) Take 1 tablet by mouth once daily. (Patient taking differently: Take 20 mg by mouth as needed.) OTC PRODUCT Vitamin D 500mg daily aspirin 81 mg chewable tablet Take 2 tablets by mouth once daily. Amoxicillin 500 mg tablet Take 4 pills day of dental appointment FAMILY HISTORY Problem Relation Age of Onset Alzheimer's Disease Mother age 76-COPD COPD Mother other (Hypertension, Hyperlipidemia) Mother Coronary Artery Disease Father 60 valve replacement Prostate Cancer Father other (PARKINSON) Father Prostate Cancer Paternal Uncle Prostate Cancer Maternal Grandfather Hypertension Sister Social History Tobacco Use Smoking status: Never Smokeless tobacco: Never Tobacco comments: ETS in childhood home, motrher smoker. Vaping Use Vaping Use: Never used Substance Use Topics Alcohol use: No Drug use: No ASSESSMENT/PLAN: 1. 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 Ears successfully flushed bilaterally TM visible and intact bilaterally. Prescription instructions reviewed with patient as applicable. Potential red flag symptoms discussed with the patient. Reviewed appropriate action plan to take if red flag symptoms occur. Patient agreeable to treatment plan. Luz Costa APRN.DILIP documented in this encounter [facility] [place] 06-17-2022 Miscellaneous Notes Call to pt who states he's cancelling this surgery and staying locally with [facility]. Has an appt tomorrow to see someone. Will schedule pre-op once he knows date and information. Asked to get rid of paperwork. Gloria Miller Ma Appt needed for pre-op testing and eval His surgery date is 08/03/22; appt should be within 30 days of this date Deshawn Noel MD Office receive fax from [facility] regarding PAT for surgery planned for 08/03/22. Review forms and advise if pt needs appt. Gloria Miller Ma documented in this encounter [facility] [place] 02-18-2022 History of Present illness Narrative Chief Complaint Patient presents with: 6 Month Exam HPI Bonny Redding Jr. is a 66 year old male who presents here today for 6 month follow up. Has been going to [employer] and is getting private lessons on how to sail. Used to go sailing with his children many years ago. Has an advanced directive on file. No issues with feeling depressed or hopeless. Declined COVID vaccines. Denies any bowel, Gi, or urinary issues. Taking Cialis prn ED. Father had prostate cancer; did not from this however. Lipid: Taking Zocor 20 mg once daily, tolerating well. No myalgia or gi upset. Also taking Aspirin 81 mg 2 tablets daily. He does try to eat healthy, has fruits and vegetables with most meals. He works on the [employer] for 40 minutes 3 days per week. Elevate glucose: was elevated last time, but had just had a cortisone injection to the knee. He does drink pop 2-3 x per week. Denies changing his eating habits since last visit. HTN: Denies checking BP at home. Taking Lisinopril 20 mg daily and Lopressor 25 mg BID. No chest pains, dizziness, or SOB. He has a [employer] [place] yearly at [facility]. History of aortic valve replacement due to bicuspid valve. OA: Rickey knees; follows with [facility] Dr. Mera. He states those are doing well at this time. Will have them both replaced at some point, putting it off as long as he can. Past medical history, appointments, medications, allergies reviewed. Previous Medical History PAST MEDICAL HISTORY Diagnosis Date Aortic stenosis with bicuspid valve 03/01/2015 Benign neoplasm of colon Chronic cough 05/16/2020 No resolution when ACEi stopped. Negative methecholine challenge 09/2020. Coronary artery disease Essential hypertension, benign 15 yr Obesity, unspecified Other and unspecified hyperlipidemia 15 yrs Peripheral neuropathy 11/29/2014 Personal history of colonic polyps Snoring Unspecified sleep apnea 2007 uses CPAP Vitamin D deficiency 2018 Previous Surgical History PAST SURGICAL HISTORY Procedure Laterality Date CATARACT EXTRACTION HX 2013 COLONOSCOPY FLX DX W/COLLJ SPEC WHEN PFRMD 08/31/2007 Colonoscopy COLONOSCOPY FLX DX W/COLLJ SPEC WHEN PFRMD N/A 10/12/2016 COLONOSCOPY W/BIOPSY SINGLE/MULTIPLE 07/20/11 EXC LESION TDN SHTH/JT CAPSL HAND/FNGR 02/24/2013 Excision ganglion cyst left middle finger HEART SURGERY HX LAPAROSCOPY SURG RPR INITIAL INGUINAL HERNIA 05/17/08 RIGHT PAST SURGICAL HISTORY OF tonsils and adenoids removed PAST SURGICAL HISTORY OF hernia PAST SURGICAL HISTORY OF 04-18-08 right meniscus repair PAST SURGICAL HISTORY OF 07/2010 right foot surgery RPR UMBILICAL HRNA 5 YRS/> REDUCIBLE 05/17/08 SEPTOPLASTY/SUBMUCOUS RESECJ W/WO CARTILAGE GRF 2004 Septoplasty Family History FAMILY HISTORY Problem Relation Age of Onset Alzheimer's Disease Mother age 76-COPD COPD Mother other (Hypertension, Hyperlipidemia) Mother Coronary Artery Disease Father 60 valve replacement Prostate Cancer Father other (PARKINSON) Father Prostate Cancer Paternal Uncle Prostate Cancer Maternal Grandfather Hypertension Sister Patient Allergies ALLERGIES No Known Allergies Current Medications Current Outpatient Medications on File Prior to Visit Medication Sig simvastatin (ZOCOR) 20 mg tablet Take 1 tablet by mouth daily at bedtime. lisinopril (ZESTRIL, PRINIVIL) 20 mg tablet Take 1 tablet by mouth once daily. metoprolol tartrate, short acting, (LOPRESSOR) 25 mg tablet Take 1 tablet by mouth twice daily. Tadalafil (CIALIS) 20 mg tab(s) Take 1 tablet by mouth once daily. Amoxicillin 500 mg tablet Take 4 pills day of dental appointment OTC PRODUCT Vitamin D 500mg daily aspirin 81 mg chewable tablet Take 2 tablets by mouth once daily. No current facility-administered medications on file prior to visit. Social History Social History Tobacco Use Smoking status: Never Smokeless tobacco: Never Tobacco comments: ETS in childhood home, motrher smoker. Vaping Use Vaping Use: Never used Substance Use Topics Alcohol use: No Drug use: No EXAM: BP 120/74 Pulse 64 Resp 16 Wt 133.2 kg (293 lb 9.6 oz) BMI 39.82 kg/m General Appearance: Well appearing, alert, in no acute distress, well-hydrated, well nourished. and Obese. Lungs: Lungs clear to auscultation. No wheezing, rhonchi, rales.. Heart: RRR without murmur, gallop, or rubs. No ectopy. Health Maintenance List COVID-19 VACCINE(1) Never done SHINGRIX VACCINE(1 of 2) Never done DEPRESSION SCREENING due on 05/09/2021 ADVANCE DIRECTIVE DISCUSSION Never done PNEUMOCOCCAL: 65+(1 - PCV) Never done DTAP,TDAP,TD(3 - Td or Tdap) due on 03/09/2022 INFLUENZA(1) due on 03/12/2022 ANNUAL PCP TEAM CHRONIC DISEASE VISIT due on 08/11/2022 BP CONTROLLED (<130/80) due on 10/29/2022 LDL CHOLESTEROL due on 02/04/2023 COLORECTAL CANCER SCREENING due on 02/04/2023 DIABETES SCREEN due on 02/04/2025 PROSTATE CANCER SCREENING DISCUSSION due on 09/05/2025 LIPID SCREEN due on 02/04/2027 HEPATITIS C SCREENING Completed HIV SCREENING Discontinued Data reviewed Appointment on 02/04/2022 Component Date Value Cholesterol, Total 02/04/2022 181 Triglyceride 02/04/2022 85 HDL Cholesterol 02/04/2022 49 Non HDL Cholesterol 02/04/2022 132 (A) Fasting Time 02/04/2022 13 VLDL Cholesterol 02/04/2022 17 TC:HDL Ratio 02/04/2022 3.69 LDL Cholesterol 02/04/2022 115 (A) LDL:HDL Ratio 02/04/2022 2.35 Protein, Total 02/04/2022 7.2 Albumin 02/04/2022 4.7 Calcium, Total 02/04/2022 9.9 Bilirubin, Total 02/04/2022 1.6 (A) Alkaline Phosphatase 02/04/2022 67 AST 02/04/2022 27 ALT 02/04/2022 27 Glucose 02/04/2022 106 (A) BUN 02/04/2022 25 (A) Creatinine 02/04/2022 1.19 Sodium 02/04/2022 137 Potassium 02/04/2022 4.3 Chloride 02/04/2022 103 CO2 02/04/2022 24 Anion Gap 02/04/2022 10 Estimated Glomerular Christian* 02/04/2022 68 Hemoglobin A1C 02/04/2022 5.5 Estimated Average Glucose 02/04/2022 111 ASSESSMENT/PLAN: 1. Essential hypertension, benign - ICD9: 401.1, ICD10: I10 (primary diagnosis) - good control - Continue current medication(s) - Recommended regular aerobic exercise. - Recommend home blood pressure monitoring, to bring results in on next visit - Goal of BP <130/80 2. ED (erectile dysfunction) of organic origin - ICD9: 607.84, ICD10: N52.9 Continue current medications. 3. Obesity, Class III, BMI 40-49.9 (morbid obesity) (HCC) - ICD9: 278.01, ICD10: E66.01 Stable Recommend healthy diet and regular exercise 4. Arthritis of knee - ICD9: 716.96, ICD10: M17.10 Continue with [facility] 5. Impaired fasting glucose - ICD9: 790.21, ICD10: R73.01 Continue to monitor Recommend healthy diet and regular exercise 6. Hyperlipidemia LDL goal <130 - ICD9: 272.4, ICD10: E78.5 - good control - Continue current medication. - Encouraged following a low fat, low cholesterol diet. - Discussed the benefits of regular aerobic exercise and weight loss. 7. S/P aortic valve replacement Continue current medications. Advised to discuss Aspirin usage with [facility] Continue with [facility] 8. Family history of prostate cancer in father - ICD9: V16.42, ICD10: Z80.42 Check PSA once a year Pneumonia vaccine (Prevnar 20) given to pt during office visit today. Follow up in 1 year with fasting labs prior. I agree with the Chief Complaint, ROS, and Past Histories independently gathered by the clinical senior office support assistant sosa and the remaining scribed note accurately describes my personal service to the patient. Medical Decision Making: Problems: Moderate: 2+ stable chronic illnesses Data: Unique test result(s) reviewed: 3+ Risk: Moderate: Drug management Medical Decision Making Level: 4 - Moderate Deshawn Noel MD The documentation for this note was completed by Ana Baltazar Ma acting as scribe for Deshawn Noel MD. February 18, 2022 12:56 PM. Ana Baltazar Ma documented in this encounter [facility] [place] 12-24-2021 Miscellaneous Notes Form completed and faxed to info below. Gloria Miller Ma Type of letter/form/fax request - JULI[employer] supplies Form received from fax on 1 floor and placed on MD desk (Dr. Noel) for completion. Completed form needs to be faxed to [employer] at [phone]. Route to KEL when form completed for processing documented in this encounter [facility] [place] 10-29-2021 History of Present illness Narrative Images from the original note were not included. Subjective HPI HPI Bonny Redding Jr. is a 65 year old male who presents today for CC of left index finger pain. This started 4 days ago. Has tried popping the area with puss production. Symptoms are worsened by touching the area. Denies nail biting and injury. bilat ears feel plugged, wears hearing aid. Denies uri symptoms. hx of cerumen impaction. .Patient presents with: Finger Pain: red and swollen left index finger x 4 days, ear pressure PAST MEDICAL HISTORY Diagnosis Date Aortic stenosis with bicuspid valve 03/01/2015 Benign neoplasm of colon Chronic cough 05/16/2020 No resolution when ACEi stopped. Negative methecholine challenge 09/2020. Coronary artery disease Essential hypertension, benign 15 yr Obesity, unspecified Other and unspecified hyperlipidemia 15 yrs Peripheral neuropathy 11/29/2014 Personal history of colonic polyps Snoring Unspecified sleep apnea 2007 uses CPAP Vitamin D deficiency 2018 PAST SURGICAL HISTORY Procedure Laterality Date CATARACT EXTRACTION HX 2014 COLONOSCOPY FLX DX W/COLLJ SPEC WHEN PFRMD 08/31/2007 Colonoscopy COLONOSCOPY FLX DX W/COLLJ SPEC WHEN PFRMD N/A 10/12/2016 COLONOSCOPY W/BIOPSY SINGLE/MULTIPLE 07/20/11 EXC LESION TDN SHTH/JT CAPSL HAND/FNGR 02/24/2013 Excision ganglion cyst left middle finger HEART SURGERY HX LAPAROSCOPY SURG RPR INITIAL INGUINAL HERNIA 05/17/08 RIGHT PAST SURGICAL HISTORY OF tonsils and adenoids removed PAST SURGICAL HISTORY OF hernia PAST SURGICAL HISTORY OF 04-18-08 right meniscus repair PAST SURGICAL HISTORY OF 07/2010 right foot surgery RPR UMBILICAL HRNA 5 YRS/> REDUCIBLE 05/17/08 SEPTOPLASTY/SUBMUCOUS RESECJ W/WO CARTILAGE GRF 2004 Septoplasty ALLERGIES Patient has no known allergies. MEDICATIONS simvastatin (ZOCOR) 20 mg tablet Take 1 tablet by mouth daily at bedtime. Tadalafil (CIALIS) 20 mg tab(s) Take 1 tablet by mouth once daily. lisinopril (ZESTRIL, PRINIVIL) 20 mg tablet Take 1 tablet by mouth once daily. Amoxicillin 500 mg tablet Take 4 pills day of dental appointment metoprolol tartrate, short acting, (LOPRESSOR) 25 mg tablet Take 1 tablet by mouth twice daily. OTC PRODUCT Vitamin D 500mg daily aspirin 81 mg chewable tablet Take 2 tablets by mouth once daily. cephALEXin (KEFLEX) 500 mg capsule Take 1 capsule by mouth three times daily for 7 days. mupirocin (BACTROBAN) 2 % ointment Apply to affected area three times daily for 10 days. FAMILY HISTORY Problem Relation Age of Onset Alzheimer's Disease Mother age 76-COPD COPD Mother other (Hypertension, Hyperlipidemia) Mother Coronary Artery Disease Father 60 valve replacement Prostate Cancer Father other (PARKINSON) Father Prostate Cancer Paternal Uncle Prostate Cancer Maternal Grandfather Hypertension Sister Social History Tobacco Use Smoking status: Never Smoker Smokeless tobacco: Never Used Tobacco comment: ETS in childhood home, motrher smoker. Vaping Use Vaping Use: Never used Substance Use Topics Alcohol use: No Drug use: No ROS Objective Blood pressure 104/72, pulse 68, temperature 36.4 C (97.5 F), resp. rate 18, weight (!) 137.9 kg (304 lb), SpO2 95 %. Physical Exam Constitutional: General: He is not in acute distress. Appearance: He is not toxic-appearing or diaphoretic. HENT: Head: Normocephalic and atraumatic. Right Ear: Hearing and external ear normal. Left Ear: Hearing and external ear normal. Ears: Comments: bilat canal partially obstructed by cerumen, bilat tm partially visible. Procedure. Nurse/lavage After lavage bilat ear canal clear and TM normal. Pulmonary: Effort: Pulmonary effort is normal. No accessory muscle usage or respiratory distress. Musculoskeletal: Hands: Lymphadenopathy: Cervical: No cervical adenopathy. Right cervical: No superficial cervical adenopathy. Left cervical: No superficial cervical adenopathy. Neurological: Mental Status: He is alert and oriented to person, place, and time. ASSESSMENT/PLAN: 1. Paronychia of finger of left hand - ICD9: 681.02, ICD10: L03.012 (primary diagnosis) - Begin treatment with Cephalaxin (Keflex) - No lymphangetic streaking, this was defined for patient to watch for and to seek medical care immediately if appears - Follow up for recheck in three days if s/s persist/worsen/change - CEPHALEXIN 500 MG CAPSULE - MUPIROCIN 2 % TOPICAL OINTMENT 2. Bilateral impacted cerumen - ICD9: 380.4, ICD10: H61.23 Successful lavage by nurse. Discussed proper ear hygiene. Agrees to plan Aleksander Tomlinson APRN.CNP documented in this encounter [facility] [place] 10-09-2021 Miscellaneous Notes The following approved medication requests have been transmitted electronically. Pending Prescriptions Disp Refills TADALAFIL 20 MG TABLET 8 tablet 11 Sig: Take 1 tablet by mouth once daily. HUMBLE: No Ye Sharma APRN.CNP Last office visit: 08/11/21 F/u scheduled: 02/18/22 Ana Baltazar Ma documented in this encounter [facility] [place] 07-08-2021 History of Present illness Narrative Radiology Service Progress Note PATIENT NAME: Bonny Redding Jr. DATE OF SERVICE: July 08, 2021 TIME: 1:19 PM PATIENT IDENTITY VERIFICATION COMPLETED USING TWO (2) IDENTIFIERS: Name and Date of confirmed by patient verbally. FALL SCREENING: Has the patient had 2 falls in the last year or 1 fall with injury or currently using an Ambulatory Assistive Device (Walker, Cane, Wheelchair, Crutches, etc.)? No PATIENT GENDER DATA: Male PATIENT RELEVANT IMPLANT DATA REVIEWED: Not Applicable RADIOLOGY DEPARTMENT: General X-ray: Exam(s) Completed: Chest X-Ray PERIPHERAL IV DATA: Not applicable SIGNED BY: RT David(R) July 08, 2021 1:19 PM documented in this encounter [facility] [place] 06-07-2021 History of Present illness Narrative Radiology Service Progress Note PATIENT NAME: Bonny Redding Jr. DATE OF SERVICE: June 07, 2021 TIME: 9:39 AM PATIENT IDENTITY VERIFICATION COMPLETED USING TWO (2) IDENTIFIERS: Name and Date of confirmed by patient verbally. FALL SCREENING: Has the patient had 2 falls in the last year or 1 fall with injury or currently using an Ambulatory Assistive Device (Walker, Cane, Wheelchair, Crutches, etc.)? No PATIENT GENDER DATA: Male PATIENT RELEVANT IMPLANT DATA REVIEWED: Not Applicable RADIOLOGY DEPARTMENT: General X-ray: Exam(s) Completed: Chest X-Ray PERIPHERAL IV DATA: Not applicable SIGNED BY: Ivette Dan RT(R) June 07, 2021 9:39 AM documented in this encounter [facility] [place] 07-29-2020 History of Present illness Narrative Radiology Service Progress Note PATIENT NAME: Bonny Redding Jr. DATE OF SERVICE: July 29, 2020 TIME: 4:16 PM PATIENT IDENTITY VERIFICATION COMPLETED USING TWO (2) IDENTIFIERS: Name and Date of confirmed by patient verbally. FALL SCREENING: Has the patient had 2 falls in the last year or 1 fall with injury or currently using an Ambulatory Assistive Device (Walker, Cane, Wheelchair, Crutches, etc.)? No PATIENT GENDER DATA: Male PATIENT RELEVANT IMPLANT DATA REVIEWED: Yes RADIOLOGY DEPARTMENT: General X-ray: Exam(s) Completed: Chest X-Ray PERIPHERAL IV DATA: Not applicable SIGNED BY: RT Kalie July 29, 2020 4:16 PM documented in this encounter [facility] [place] 07-29-2020 Miscellaneous Notes [place],There are some chronic changes in the lungs that have not changed from previous chest x-rays. I believe this is the cause of your chronic cough. I will place a referral to a seismic plotter to see if what, if any, further evaluation is necessary. My staff will contact you regarding an appointment.Luis Enrique Ambrose III, MD, FAAFP documented in this encounter [facility] [place] 07-29-2020 Progress note Formatting of t his note might be different from the original. [place],There are some chronic changes in the lungs that have not changed from previous chest x-rays. I believe this is the cause of your chronic cough. I will place a referral to a seismic plotter to see if what, if any, further evaluation is necessary. My staff will contact you regarding an appointment.Luis Enrique Ambrose III, MD, FAAFP [facility] [place] 11-15-2017 History of Past i llness Narrative Problem Noted Date Resolved Date A-fib 11/15/2017 11/16/2017 Overview: Afib from 5pm to 4 AM 11/14-11/15 overnight. No history of AFib A/P: Currently SR. Replete lytes and BB Pleural effusion 11/14/2017 11/16/2017 Overview: A/P: Small B pleural effusion L>R. Gentle diuresis. Wean O2 as tolerated. Monitor xray Atelectasis 11/13/2017 11/16/2017 Overview: A/P Bibasilar atelectasis, improved today Small B pleural effusions remain. Continue BPH: PEP, EZ PEP, CDB, OOBTC, and pain control. On mechanically assisted ventilation 11/12/2017 11/13/2017 Overview: 5: post op, WTE Pre-op testing 11/10/2017 11/16/2017 Overview: Images from the original note were not included. [facility] Surgeon: Bogdan Spaulding M.D. Informed Consent Completed:Yes STS Score: .486% CAD: Yes - CAD on Problem List: Yes Is intended procedure a CABG: No - is a beta lisa ordered? No - reason: not a CABG H & P completed: Yes PA/LAT: N/A CT: Completed MRI: N/A LE US: N/A Cath: Yes - reviewed: Yes Echo:Completed EKG: Completed EF %: 61 PI's: N/A Carotid: N/A Mapping: N/A Dental: Completed PFT's: N/A UA: Normal HCG:N/A ABO/ABO Confirmed: YES Blood ordered: No SA Swab: Yes - results: NEGATIVE Last Dose of Anticoagulation: none Op Note: N/A Pacemaker Check: N/A Consults: none DM: No Cardiac Surgical prep: N/A Advanced directives are complete. Patient instructed to have document scanned at J1-1 admitting interview. Pt will bring documents DOS. SIGNATURE: Nettie Corley APRN.BOARD WRITER CHECKED BY: jonathan DATE of SERVICE: 11/10/2017 TIME of SERVICE: 12:00 PM Bilateral low back pain with right-sided sciatic a 10/02/2015 05/25/2016 Chronic pain of both knees 10/02/201505/25 Numbness and tingling in both hands 10/02/2015 05/25/2016 Numbness and tingling of both legs 10/02/2015 05/25/2016 Peripheral neuropathy 11/29/2014 05/25/2016 Viral warts, unspecified 09/06/2013 015 Actinic Keratoses: Premalignant AK's 07/25/2013 11/29/2014 Cutaneous skin tags 07/25/2013 11/29/2014 Ganglion and cyst of synovium, tendon and bursa 03/02/2013 11/29/2014 Inclusion cyst 01/16/2013 03/02/2013 UMBILICAL HERNIA W/O GANGRENE/OBSTRUCTION 200711/29/2014 Follow-up examination, following unspecified massiel joseph 05/02/2008 09/10/2008 INGUINAL HERNIA, UNILATERAL W/O GANGRENE/OBSTRUC TION 04/30/2008 11/29/2014 Tear of medial cartilage or meniscus of knee, cu rrent 03/29/2008 11/29/2014 Benign neoplasm of colon 08/31/2007 015 documented as of this encounter (statuses as of 10/09/2021) [facility] [place] History of Past illness Narrative* Problem Noted Date Resolved Date A-fib 11/15/2017 11/16/2017 Overview: Afib from 5pm to 4 AM 5/6-5/7 overnight. No history of AFib A/P: Currently SR. Replete lytes and BB Pleural effusion 11/14/2017 11/16/2017 Overview: A/P: Small B pleural effusion L>R. Gentle diuresis. Wean O2 as tolerated. Monitor xray Atelectasis 11/13/2017 11/16/2017 Overview: A/P Bibasilar atelectasis, improved today Small B pleural effusions remain. Continue BPH: PEP, EZ PEP, CDB, OOBTC, and pain control. On mechanically assisted ventilation 11/12/2017 11/13/2017 Overview: 11/12: post op, WTE Pre-op testing 11/10/2017 11/16/2017 Overview: Images from the original note were not included. [facility] Surgeon: Bogdan Spaulding M.D. Informed Consent Completed:Yes STS Score: .486% CAD: Yes - CAD on Problem List: Yes Is intended procedure a CABG: No - is a beta lisa ordered? No - reason: not a CABG H & P completed: Yes PA/LAT: N/A CT: Completed MRI: N/A LE US: N/A Cath: Yes - reviewed: Yes Echo:Completed EKG: Completed EF %: 61 PI's: N/A Carotid: N/A Mapping: N/A Dental: Completed PFT's: N/A UA: Normal HCG:N/A ABO/ABO Confirmed: YES Blood ordered: No SA Swab: Yes - results: NEGATIVE Last Dose of Anticoagulation: none Op Note: N/A Pacemaker Check: N/A Consults: none DM: No Cardiac Surgical prep: N/A Advanced directives are complete. Patient instructed to have document scanned at J1-1 admitting interview. Pt will bring documents DOS. SIGNATURE: Nettie Corley APRN.BOARD WRITER CHECKED BY: jonathan DATE of SERVICE: 11/10/2017 TIME of SERVICE: 12:00 PM Bilateral low back pain with right-sided sciatic a 10/02/2015 05/25/2016 Chronic pain of both knees 10/02/201505/25 Numbness and tingling in both hands 10/02/2015 05/25/2016 Numbness and tingling of both legs 10/02/2015 05/25/2016 Peripheral neuropathy 11/29/2014 05/25/2016 Viral warts, unspecified 09/06/2013 015 Actinic Keratoses: Premalignant AK's 07/25/2013 11/29/2014 Cutaneous skin tags 07/25/2013 11/29/2014 Ganglion and cyst of synovium, tendon and bursa 03/02/2013 11/29/2014 Inclusion cyst 01/16/2013 03/02/2013 UMBILICAL HERNIA W/O GANGRENE/OBSTRUCTION 200711/29/2014 Follow-up examination, following unspecified massiel joseph 05/02/2008 09/10/2008 INGUINAL HERNIA, UNILATERAL W/O GANGRENE/OBSTRUC TION 04/30/2008 11/29/2014 Tear of medial cartilage or meniscus of knee, cu rrent 03/29/2008 11/29/2014 Benign neoplasm of colon 08/31/2007 015 documented as of this encounter (statuses as of 10/29/2021) [facility] [place] History of Past illness Narrative* Problem Noted Date Resolved Date A-fib 11/15/2017 11/16/2017 Overview: Afib from 5pm to 4 AM 5/6-5/7 overnight. No history of AFib A/P: Currently SR. Replete lytes and BB Pleural effusion 11/14/2017 11/16/2017 Overview: A/P: Small B pleural effusion L>R. Gentle diuresis. Wean O2 as tolerated. Monitor xray Atelectasis 11/13/2017 11/16/2017 Overview: A/P Bibasilar atelectasis, improved today Small B pleural effusions remain. Continue BPH: PEP, EZ PEP, CDB, OOBTC, and pain control. On mechanically assisted ventilation 11/12/2017 11/13/2017 Overview: 11/12: post op, WTE Pre-op testing 11/10/2017 11/16/2017 Overview: Images from the original note were not included. [facility] Surgeon: Bogdan Spaulding M.D. Informed Consent Completed:Yes STS Score: .486% CAD: Yes - CAD on Problem List: Yes Is intended procedure a CABG: No - is a beta lisa ordered? No - reason: not a CABG H & P completed: Yes PA/LAT: N/A CT: Completed MRI: N/A LE US: N/A Cath: Yes - reviewed: Yes Echo:Completed EKG: Completed EF %: 61 PI's: N/A Carotid: N/A Mapping: N/A Dental: Completed PFT's: N/A UA: Normal HCG:N/A ABO/ABO Confirmed: YES Blood ordered: No SA Swab: Yes - results: NEGATIVE Last Dose of Anticoagulation: none Op Note: N/A Pacemaker Check: N/A Consults: none DM: No Cardiac Surgical prep: N/A Advanced directives are complete. Patient instructed to have document scanned at J1-1 admitting interview. Pt will bring documents DOS. SIGNATURE: Nettie Corley APRN.BOARD WRITER CHECKED BY: jonathan DATE of SERVICE: 11/10/2017 TIME of SERVICE: 12:00 PM Bilateral low back pain with right-sided sciatic a 10/02/2015 05/25/2016 Chronic pain of both knees 10/02/201505/25 Numbness and tingling in both hands 10/02/2015 05/25/2016 Numbness and tingling of both legs 10/02/2015 05/25/2016 Peripheral neuropathy 11/29/2014 05/25/2016 Viral warts, unspecified 09/06/2013 015 Actinic Keratoses: Premalignant AK's 07/25/2013 11/29/2014 Cutaneous skin tags 07/25/2013 11/29/2014 Ganglion and cyst of synovium, tendon and bursa 03/02/2013 11/29/2014 Inclusion cyst 01/16/2013 03/02/2013 UMBILICAL HERNIA W/O GANGRENE/OBSTRUCTION 200711/29/2014 Follow-up examination, following unspecified massiel joseph 05/02/2008 09/10/2008 INGUINAL HERNIA, UNILATERAL W/O GANGRENE/OBSTRUC TION 04/30/2008 11/29/2014 Tear of medial cartilage or meniscus of knee, cu rrent 03/29/2008 11/29/2014 Benign neoplasm of colon 08/31/2007 015 documented as of this encounter (statuses as of 11/11/2021) [facility] [place] History of Past illness Narrative* Problem Noted Date Resolved Date A-fib 11/15/2017 11/16/2017 Overview: Afib from 5pm to 4 AM 5/6-5/7 overnight. No history of AFib A/P: Currently SR. Replete lytes and BB Pleural effusion 11/14/2017 11/16/2017 Overview: A/P: Small B pleural effusion L>R. Gentle diuresis. Wean O2 as tolerated. Monitor xray Atelectasis 11/13/2017 11/16/2017 Overview: A/P Bibasilar atelectasis, improved today Small B pleural effusions remain. Continue BPH: PEP, EZ PEP, CDB, OOBTC, and pain control. On mechanically assisted ventilation 11/12/2017 11/13/2017 Overview: 11/12: post op, WTE Pre-op testing 11/10/2017 11/16/2017 Overview: Images from the original note were not included. [facility] Surgeon: Bogdan Spaulding M.D. Informed Consent Completed:Yes STS Score: .486% CAD: Yes - CAD on Problem List: Yes Is intended procedure a CABG: No - is a beta lisa ordered? No - reason: not a CABG H & P completed: Yes PA/LAT: N/A CT: Completed MRI: N/A LE US: N/A Cath: Yes - reviewed: Yes Echo:Completed EKG: Completed EF %: 61 PI's: N/A Carotid: N/A Mapping: N/A Dental: Completed PFT's: N/A UA: Normal HCG:N/A ABO/ABO Confirmed: YES Blood ordered: No SA Swab: Yes - results: NEGATIVE Last Dose of Anticoagulation: none Op Note: N/A Pacemaker Check: N/A Consults: none DM: No Cardiac Surgical prep: N/A Advanced directives are complete. Patient instructed to have document scanned at J1-1 admitting interview. Pt will bring documents DOS. SIGNATURE: Nettie Corley APRN.BOARD WRITER CHECKED BY: jonathan DATE of SERVICE: 11/10/2017 TIME of SERVICE: 12:00 PM Bilateral low back pain with right-sided sciatic a 10/02/2015 05/25/2016 Chronic pain of both knees 10/02/201505/25 Numbness and tingling in both hands 10/02/2015 05/25/2016 Numbness and tingling of both legs 10/02/2015 05/25/2016 Peripheral neuropathy 11/29/2014 05/25/2016 Viral warts, unspecified 09/06/2013 015 Actinic Keratoses: Premalignant AK's 07/25/2013 11/29/2014 Cutaneous skin tags 07/25/2013 11/29/2014 Ganglion and cyst of synovium, tendon and bursa 03/02/2013 11/29/2014 Inclusion cyst 01/16/2013 03/02/2013 UMBILICAL HERNIA W/O GANGRENE/OBSTRUCTION 200711/29/2014 Follow-up examination, following unspecified massiel joseph 05/02/2008 09/10/2008 INGUINAL HERNIA, UNILATERAL W/O GANGRENE/OBSTRUC TION 04/30/2008 11/29/2014 Tear of medial cartilage or meniscus of knee, cu rrent 03/29/2008 11/29/2014 Benign neoplasm of colon 08/31/2007 015 documented as of this encounter (statuses as of 12/24/2021) [facility] [place] History of Past illness Narrative* Problem Noted Date Resolved Date A-fib 11/15/2017 11/16/2017 Overview: Afib from 5pm to 4 AM 11/14-11/15 overnight. No history of AFib A/P: Currently SR. Replete lytes and BB Pleural effusion 11/14/2017 11/16/2017 Overview: A/P: Small B pleural effusion L>R. Gentle diuresis. Wean O2 as tolerated. Monitor xray Atelectasis 11/13/2017 11/16/2017 Overview: A/P Bibasilar atelectasis, improved today Small B pleural effusions remain. Continue BPH: PEP, EZ PEP, CDB, OOBTC, and pain control. On mechanically assisted ventilation 11/12/2017 11/13/2017 Overview: 11/12: post op, WTE Pre-op testing 11/10/2017 11/16/2017 Overview: Images from the original note were not included. [facility] PRE-[facility]LIST Surgeon: Bogdan Spaulding M.D. Informed Consent Completed:Yes STS Score: .486% CAD: Yes - CAD on Problem List: Yes Is intended procedure a CABG: No - is a beta lisa ordered? No - reason: not a CABG H & P completed: Yes PA/LAT: N/A CT: Completed MRI: N/A LE US: N/A Cath: Yes - reviewed: Yes Echo:Completed EKG: Completed EF %: 61 PI's: N/A Carotid: N/A Mapping: N/A Dental: Completed PFT's: N/A UA: Normal HCG:N/A ABO/ABO Confirmed: YES Blood ordered: No SA Swab: Yes - results: NEGATIVE Last Dose of Anticoagulation: none Op Note: N/A Pacemaker Check: N/A Consults: none DM: No Cardiac Surgical prep: N/A Advanced directives are complete. Patient instructed to have document scanned at J1-1 admitting interview. Pt will bring documents DOS. SIGNATURE: Nettie Corley APRN.BOARD WRITER CHECKED BY: [email or web address] DATE of SERVICE: 11/10/2017 TIME of SERVICE: 12:00 PM Bilateral low back pain with right-sided sciatic a 10/02/2015 05/25/2016 Chronic pain of both knees 10/02/201505/25 Numbness and tingling in both hands 10/02/2015 05/25/2016 Numbness and tingling of both legs 10/02/2015 05/25/2016 Peripheral neuropathy 11/29/2014 05/25/2016 Viral warts, unspecified 09/06/2013 015 Actinic Keratoses: Premalignant AK's 07/25/2013 11/29/2014 Cutaneous skin tags 07/25/2013 11/29/2014 Ganglion and cyst of synovium, tendon and bursa 03/02/2013 11/29/2014 Inclusion cyst 01/16/2013 03/02/2013 UMBILICAL HERNIA W/O GANGRENE/OBSTRUCTION 200711/29/2014 Follow-up examination, following unspecified massiel joseph 05/02/2008 09/10/2008 INGUINAL HERNIA, UNILATERAL W/O GANGRENE/OBSTRUC TION 04/30/2008 11/29/2014 Tear of medial cartilage or meniscus of knee, cu rrent 03/29/2008 11/29/2014 Benign neoplasm of colon 08/31/2007 015 documented as of this encounter (statuses as of 02/18/2022) [facility] [place]05-07-2018 History of Past illness Narrative* Problem Noted Date Resolved Date A-fib 11/15/2017 11/16/2017 Overview: Afib from 5pm to 4 AM 5/6-5/7 overnight. No history of AFib A/P: Currently SR. Replete lytes and BB Pleural effusion 11/14/2017 11/16/2017 Overview: A/P: Small B pleural effusion L>R. Gentle diuresis. Wean O2 as tolerated. Monitor xray Atelectasis 11/13/2017 11/16/2017 Overview: A/P Bibasilar atelectasis, improved today Small B pleural effusions remain. Continue BPH: PEP, EZ PEP, CDB, OOBTC, and pain control. On mechanically assisted ventilation 11/12/2017 11/13/2017 Overview: 5/4: post op, WTE Pre-op testing 11/10/2017 11/16/2017 Overview: Images from the original note were not included. [facility] Surgeon: Bogdan Spaulding M.D. Informed Consent Completed:Yes STS Score: .486% CAD: Yes - CAD on Problem List: Yes Is intended procedure a CABG: No - is a beta lisa ordered? No - reason: not a CABG H & P completed: Yes PA/LAT: N/A CT: Completed MRI: N/A LE US: N/A Cath: Yes - reviewed: Yes Echo:Completed EKG: Completed EF %: 61 PI's: N/A Carotid: N/A Mapping: N/A Dental: Completed PFT's: N/A UA: Normal HCG:N/A ABO/ABO Confirmed: YES Blood ordered: No SA Swab: Yes - results: NEGATIVE Last Dose of Anticoagulation: none Op Note: N/A Pacemaker Check: N/A Consults: none DM: No Cardiac Surgical prep: N/A Advanced directives are complete. Patient instructed to have document scanned at J1-1 admitting interview. Pt will bring documents DOS. SIGNATURE: Nettie Corley APRN.BOARD WRITER CHECKED BY: [email or web address] DATE of SERVICE: 11/10/2017 TIME of SERVICE: 12:00 PM Bilateral low back pain with right-sided sciatic a 10/02/2015 05/25/2016 Chronic pain of both knees 10/02/201505/25 Numbness and tingling in both hands 10/02/2015 05/25/2016 Numbness and tingling of both legs 10/02/2015 05/25/2016 Peripheral neuropathy 11/29/2014 05/25/2016 Viral warts, unspecified 09/06/2013 015 Actinic Keratoses: Premalignant AK's 07/25/2013 11/29/2014 Cutaneous skin tags 07/25/2013 11/29/2014 Ganglion and cyst of synovium, tendon and bursa 03/02/2013 11/29/2014 Inclusion cyst 01/16/2013 03/02/2013 UMBILICAL HERNIA W/O GANGRENE/OBSTRUCTION 200711/29/2014 Follow-up examination, following unspecified massiel joseph 05/02/2008 09/10/2008 INGUINAL HERNIA, UNILATERAL W/O GANGRENE/OBSTRUC TION 04/30/2008 11/29/2014 Tear of medial cartilage or meniscus of knee, cu rrent 03/29/2008 11/29/2014 Benign neoplasm of colon 08/31/2007 015 documented as of this encounter (statuses as of 06/17/2022) [facility] [place]05-07-2018 History of Past illness Narrative* Problem Noted Date Resolved Date A-fib 11/15/2017 11/16/2017 Overview: Afib from 5pm to 4 AM 11/14-11/15 overnight. No history of AFib A/P: Currently SR. Replete lytes and BB Pleural effusion 11/14/2017 11/16/2017 Overview: A/P: Small B pleural effusion L>R. Gentle diuresis. Wean O2 as tolerated. Monitor xray Atelectasis 11/13/2017 11/16/2017 Overview: A/P Bibasilar atelectasis, improved today Small B pleural effusions remain. Continue BPH: PEP, EZ PEP, CDB, OOBTC, and pain control. On mechanically assisted ventilation 11/12/2017 11/13/2017 Overview: 11/12: post op, WTE Pre-op testing 11/10/2017 11/16/2017 Overview: Images from the original note were not included. [facility] Surgeon: Bogdan Spaulding M.D. Informed Consent Completed:Yes STS Score: .486% CAD: Yes - CAD on Problem List: Yes Is intended procedure a CABG: No - is a beta lisa ordered? No - reason: not a CABG H & P completed: Yes PA/LAT: N/A CT: Completed MRI: N/A LE US: N/A Cath: Yes - reviewed: Yes Echo:Completed EKG: Completed EF %: 61 PI's: N/A Carotid: N/A Mapping: N/A Dental: Completed PFT's: N/A UA: Normal HCG:N/A ABO/ABO Confirmed: YES Blood ordered: No SA Swab: Yes - results: NEGATIVE Last Dose of Anticoagulation: none Op Note: N/A Pacemaker Check: N/A Consults: none DM: No Cardiac Surgical prep: N/A Advanced directives are complete. Patient instructed to have document scanned at J1-1 admitting interview. Pt will bring documents DOS. SIGNATURE: Nettie Corley APRN.BOARD WRITER CHECKED BY: [email or web address] DATE of SERVICE: 11/10/2017 TIME of SERVICE: 12:00 PM Bilateral low back pain with right-sided sciatic a 10/02/2015 05/25/2016 Chronic pain of both knees 10/02/201505/25 Numbness and tingling in both hands 10/02/2015 05/25/2016 Numbness and tingling of both legs 10/02/2015 05/25/2016 Peripheral neuropathy 11/29/2014 05/25/2016 Viral warts, unspecified 09/06/2013 015 Actinic Keratoses: Premalignant AK's 07/25/2013 11/29/2014 Cutaneous skin tags 07/25/2013 11/29/2014 Ganglion and cyst of synovium, tendon and bursa 03/02/2013 11/29/2014 Inclusion cyst 01/16/2013 03/02/2013 UMBILICAL HERNIA W/O GANGRENE/OBSTRUCTION 200711/29/2014 Follow-up examination, following unspecified massiel joseph 05/02/2008 09/10/2008 INGUINAL HERNIA, UNILATERAL W/O GANGRENE/OBSTRUC TION 04/30/2008 11/29/2014 Tear of medial cartilage or meniscus of knee, cu rrent 03/29/2008 11/29/2014 Benign neoplasm of colon 08/31/2007 015 documented as of this encounter (statuses as of 07/03/2022) [facility] [place]2018 History of Past illness Narrative* Problem Noted Date Resolved Date A-fib 11/15/2017 11/16/2017 Overview: Afib from 5pm to 4 AM 5/6-5/7 overnight. No history of AFib A/P: Currently SR. Replete lytes and BB Pleural effusion 11/14/2017 11/16/2017 Overview: A/P: Small B pleural effusion L>R. Gentle diuresis. Wean O2 as tolerated. Monitor xray Atelectasis 11/13/2017 11/16/2017 Overview: A/P Bibasilar atelectasis, improved today Small B pleural effusions remain. Continue BPH: PEP, EZ PEP, CDB, OOBTC, and pain control. On mechanically assisted ventilation 11/12/2017 11/13/2017 Overview: 11/12: post op, WTE Pre-op testing 11/10/2017 11/16/2017 Overview: Images from the original note were not included. [facility] Surgeon: Bogdan Spaulding M.D. Informed Consent Completed:Yes STS Score: .486% CAD: Yes - CAD on Problem List: Yes Is intended procedure a CABG: No - is a beta lisa ordered? No - reason: not a CABG H & P completed: Yes PA/LAT: N/A CT: Completed MRI: N/A LE US: N/A Cath: Yes - reviewed: Yes Echo:Completed EKG: Completed EF %: 61 PI's: N/A Carotid: N/A Mapping: N/A Dental: Completed PFT's: N/A UA: Normal HCG:N/A ABO/ABO Confirmed: YES Blood ordered: No SA Swab: Yes - results: NEGATIVE Last Dose of Anticoagulation: none Op Note: N/A Pacemaker Check: N/A Consults: none DM: No Cardiac Surgical prep: N/A Advanced directives are complete. Patient instructed to have document scanned at J1-1 admitting interview. Pt will bring documents DOS. SIGNATURE: Nettie Corley APRN.BOARD WRITER CHECKED BY: [email or web address] DATE of SERVICE: 11/10/2017 TIME of SERVICE: 12:00 PM Bilateral low back pain with right-sided sciatic a 10/02/2015 05/25/2016 Chronic pain of both knees 10/02/201505/25 Numbness and tingling in both hands 10/02/2015 05/25/2016 Numbness and tingling of both legs 10/02/2015 05/25/2016 Peripheral neuropathy 11/29/2014 05/25/2016 Viral warts, unspecified 09/06/2013 015 Actinic Keratoses: Premalignant AK's 07/25/2013 11/29/2014 Cutaneous skin tags 07/25/2013 11/29/2014 Ganglion and cyst of synovium, tendon and bursa 03/02/2013 11/29/2014 Inclusion cyst 01/16/2013 03/02/2013 UMBILICAL HERNIA W/O GANGRENE/OBSTRUCTION 200711/29/2014 Follow-up examination, following unspecified massiel joseph 05/02/2008 09/10/2008 INGUINAL HERNIA, UNILATERAL W/O GANGRENE/OBSTRUC TION 04/30/2008 11/29/2014 Tear of medial cartilage or meniscus of knee, cu rrent 03/29/2008 11/29/2014 Benign neoplasm of colon 08/31/2007 015 documented as of this encounter (statuses as of 08/29/2022) [facility] [place]2018 History of Past illness Narrative* Problem Noted Date Resolved Date A-fib 11/15/2017 11/16/2017 Overview: Afib from 5pm to 4 AM 5/6-57 overnight. No history of AFib A/P: Currently SR. Replete lytes and BB Pleural effusion 11/14/2017 11/16/2017 Overview: A/P: Small B pleural effusion L>R. Gentle diuresis. Wean O2 as tolerated. Monitor xray Atelectasis 11/13/2017 11/16/2017 Overview: A/P Bibasilar atelectasis, improved today Small B pleural effusions remain. Continue BPH: PEP, EZ PEP, CDB, OOBTC, and pain control. On mechanically assisted ventilation 11/12/2017 11/13/2017 Overview: 11/12: post op, WTE Pre-op testing 11/10/2017 11/16/2017 Overview: Images from the original note were not included. [facility] Surgeon: Bogdan Spaulding M.D. Informed Consent Completed:Yes STS Score: .486% CAD: Yes - CAD on Problem List: Yes Is intended procedure a CABG: No - is a beta lisa ordered? No - reason: not a CABG H & P completed: Yes PA/LAT: N/A CT: Completed MRI: N/A LE US: N/A Cath: Yes - reviewed: Yes Echo:Completed EKG: Completed EF %: 61 PI's: N/A Carotid: N/A Mapping: N/A Dental: Completed PFT's: N/A UA: Normal HCG:N/A ABO/ABO Confirmed: YES Blood ordered: No SA Swab: Yes - results: NEGATIVE Last Dose of Anticoagulation: none Op Note: N/A Pacemaker Check: N/A Consults: none DM: No Cardiac Surgical prep: N/A Advanced directives are complete. Patient instructed to have document scanned at J1-1 admitting interview. Pt will bring documents DOS. SIGNATURE: Nettie Corley APRN.BOARD WRITER CHECKED BY: [email or web address] DATE of SERVICE: 11/10/2017 TIME of SERVICE: 12:00 PM Bilateral low back pain with right-sided sciatic a 10/02/2015 05/25/2016 Chronic pain of both knees 10/02/201505/25 Numbness and tingling in both hands 10/02/2015 05/25/2016 Numbness and tingling of both legs 10/02/2015 05/25/2016 Peripheral neuropathy 11/29/2014 05/25/2016 Viral warts, unspecified 09/06/2013 015 Actinic Keratoses: Premalignant AK's 07/25/2013 11/29/2014 Cutaneous skin tags 07/25/2013 11/29/2014 Ganglion and cyst of synovium, tendon and bursa 03/02/2013 11/29/2014 Inclusion cyst 01/16/2013 03/02/2013 UMBILICAL HERNIA W/O GANGRENE/OBSTRUCTION 200711/29/2014 Follow-up examination, following unspecified massiel joseph 05/02/2008 09/10/2008 INGUINAL HERNIA, UNILATERAL W/O GANGRENE/OBSTRUC TION 04/30/2008 11/29/2014 Tear of medial cartilage or meniscus of knee, cu rrent 03/29/2008 11/29/2014 Benign neoplasm of colon 08/31/2007 015 documented as of this encounter (statuses as of 09/18/2022) [facility] [place]2018 History of Past illness Narrative* Problem Noted Date Resolved Date A-fib 11/15/2017 11/16/2017 Overview: Afib from 5pm to 4 AM 5/6-5/7 overnight. No history of AFib A/P: Currently SR. Replete lytes and BB Pleural effusion 11/14/2017 11/16/2017 Overview: A/P: Small B pleural effusion L>R. Gentle diuresis. Wean O2 as tolerated. Monitor xray Atelectasis 11/13/2017 11/16/2017 Overview: A/P Bibasilar atelectasis, improved today Small B pleural effusions remain. Continue BPH: PEP, EZ PEP, CDB, OOBTC, and pain control. On mechanically assisted ventilation 11/12/2017 11/13/2017 Overview: 11/12: post op, WTE Pre-op testing 11/10/2017 11/16/2017 Overview: Images from the original note were not included. [facility] Surgeon: Bogdan Spaulding M.D. Informed Consent Completed:Yes STS Score: .486% CAD: Yes - CAD on Problem List: Yes Is intended procedure a CABG: No - is a beta lisa ordered? No - reason: not a CABG H & P completed: Yes PA/LAT: N/A CT: Completed MRI: N/A LE US: N/A Cath: Yes - reviewed: Yes Echo:Completed EKG: Completed EF %: 61 PI's: N/A Carotid: N/A Mapping: N/A Dental: Completed PFT's: N/A UA: Normal HCG:N/A ABO/ABO Confirmed: YES Blood ordered: No SA Swab: Yes - results: NEGATIVE Last Dose of Anticoagulation: none Op Note: N/A Pacemaker Check: N/A Consults: none DM: No Cardiac Surgical prep: N/A Advanced directives are complete. Patient instructed to have document scanned at J1-1 admitting interview. Pt will bring documents DOS. SIGNATURE: Nettie Corley APRN.BOARD WRITER CHECKED BY: [email or web address] DATE of SERVICE: 11/10/2017 TIME of SERVICE: 12:00 PM Bilateral low back pain with right-sided sciatic a 10/02/2015 05/25/2016 Chronic pain of both knees 10/02/201505/25 Numbness and tingling in both hands 10/02/2015 05/25/2016 Numbness and tingling of both legs 10/02/2015 05/25/2016 Peripheral neuropathy 11/29/2014 05/25/2016 Viral warts, unspecified 09/06/2013 015 Actinic Keratoses: Premalignant AK's 07/25/2013 11/29/2014 Cutaneous skin tags 07/25/2013 11/29/2014 Ganglion and cyst of synovium, tendon and bursa 03/02/2013 11/29/2014 Inclusion cyst 01/16/2013 03/02/2013 UMBILICAL HERNIA W/O GANGRENE/OBSTRUCTION 200711/29/2014 Follow-up examination, following unspecified massiel joseph 05/02/2008 09/10/2008 INGUINAL HERNIA, UNILATERAL W/O GANGRENE/OBSTRUC TION 04/30/2008 11/29/2014 Tear of medial cartilage or meniscus of knee, cu rrent 03/29/2008 11/29/2014 Benign neoplasm of colon 08/31/2007 015 documented as of this encounter (statuses as of 11/26/2022) [facility] [place]2018 History of Past illness Narrative* Problem Noted Date Resolved Date A-fib 11/15/2017 11/16/2017 Overview: Afib from 5pm to 4 AM 5/6-5/7 overnight. No history of AFib A/P: Currently SR. Replete lytes and BB Pleural effusion 11/14/2017 11/16/2017 Overview: A/P: Small B pleural effusion L>R. Gentle diuresis. Wean O2 as tolerated. Monitor xray Atelectasis 11/13/2017 11/16/2017 Overview: A/P Bibasilar atelectasis, improved today Small B pleural effusions remain. Continue BPH: PEP, EZ PEP, CDB, OOBTC, and pain control. On mechanically assisted ventilation 11/12/2017 11/13/2017 Overview: 11/12: post op, WTE Pre-op testing 11/10/2017 11/16/2017 Overview: Images from the original note were not included. [facility] Surgeon: Bogdan Spaulding M.D. Informed Consent Completed:Yes STS Score: .486% CAD: Yes - CAD on Problem List: Yes Is intended procedure a CABG: No - is a beta lisa ordered? No - reason: not a CABG H & P completed: Yes PA/LAT: N/A CT: Completed MRI: N/A LE US: N/A Cath: Yes - reviewed: Yes Echo:Completed EKG: Completed EF %: 61 PI's: N/A Carotid: N/A Mapping: N/A Dental: Completed PFT's: N/A UA: Normal HCG:N/A ABO/ABO Confirmed: YES Blood ordered: No SA Swab: Yes - results: NEGATIVE Last Dose of Anticoagulation: none Op Note: N/A Pacemaker Check: N/A Consults: none DM: No Cardiac Surgical prep: N/A Advanced directives are complete. Patient instructed to have document scanned at J1-1 admitting interview. Pt will bring documents DOS. SIGNATURE: Nettie Corley APRN.BOARD WRITER CHECKED BY: [email or web address] DATE of SERVICE: 11/10/2017 TIME of SERVICE: 12:00 PM Bilateral low back pain with right-sided sciatic a 10/02/2015 05/25/2016 Chronic pain of both knees 10/02/201505/25 Numbness and tingling in both hands 10/02/2015 05/25/2016 Numbness and tingling of both legs 10/02/2015 05/25/2016 Peripheral neuropathy 11/29/2014 05/25/2016 Viral warts, unspecified 09/06/2013 015 Actinic Keratoses: Premalignant AK's 07/25/2013 11/29/2014 Cutaneous skin tags 07/25/2013 11/29/2014 Ganglion and cyst of synovium, tendon and bursa 03/02/2013 11/29/2014 Inclusion cyst 01/16/2013 03/02/2013 UMBILICAL HERNIA W/O GANGRENE/OBSTRUCTION 200711/29/2014 Follow-up examination, following unspecified massiel joseph 05/02/2008 09/10/2008 INGUINAL HERNIA, UNILATERAL W/O GANGRENE/OBSTRUC TION 04/30/2008 11/29/2014 Tear of medial cartilage or meniscus of knee, cu rrent 03/29/2008 11/29/2014 Benign neoplasm of colon 08/31/2007 015 documented as of this encounter (statuses as of 12/08/2022) [facility] [place] History of Past illness Narrative* Problem Noted Date Resolved Date A-fib 11/15/2017 11/16/2017 Overview: Afib from 5pm to 4 AM 56-11/15 overnight. No history of AFib A/P: Currently SR. Replete lytes and BB Pleural effusion 11/14/2017 11/16/2017 Overview: A/P: Small B pleural effusion L>R. Gentle diuresis. Wean O2 as tolerated. Monitor xray Atelectasis 11/13/2017 11/16/2017 Overview: A/P Bibasilar atelectasis, improved today Small B pleural effusions remain. Continue BPH: PEP, EZ PEP, CDB, OOBTC, and pain control. On mechanically assisted ventilation 11/12/2017 11/13/2017 Overview: 11/12: post op, WTE Pre-op testing 11/10/2017 11/16/2017 Overview: Images from the original note were not included. [facility] Surgeon: Bogdan Spaulding M.D. Informed Consent Completed:Yes STS Score: .486% CAD: Yes - CAD on Problem List: Yes Is intended procedure a CABG: No - is a beta lisa ordered? No - reason: not a CABG H & P completed: Yes PA/LAT: N/A CT: Completed MRI: N/A LE US: N/A Cath: Yes - reviewed: Yes Echo:Completed EKG: Completed EF %: 61 PI's: N/A Carotid: N/A Mapping: N/A Dental: Completed PFT's: N/A UA: Normal HCG:N/A ABO/ABO Confirmed: YES Blood ordered: No SA Swab: Yes - results: NEGATIVE Last Dose of Anticoagulation: none Op Note: N/A Pacemaker Check: N/A Consults: none DM: No Cardiac Surgical prep: N/A Advanced directives are complete. Patient instructed to have document scanned at J1-1 admitting interview. Pt will bring documents DOS. SIGNATURE: Nettie Corley APRN.BOARD WRITER CHECKED BY: [email or web address] DATE of SERVICE: 11/10/2017 TIME of SERVICE: 12:00 PM Bilateral low back pain with right-sided sciatic a 10/02/2015 05/25/2016 Chronic pain of both knees 10/02/201505/25 Numbness and tingling in both hands 10/02/2015 05/25/2016 Numbness and tingling of both legs 10/02/2015 05/25/2016 Peripheral neuropathy 11/29/2014 05/25/2016 Viral warts, unspecified 09/06/2013 015 Actinic Keratoses: Premalignant AK's 07/25/2013 11/29/2014 Cutaneous skin tags 07/25/2013 11/29/2014 Ganglion and cyst of synovium, tendon and bursa 03/02/2013 11/29/2014 Inclusion cyst 01/16/2013 03/02/2013 UMBILICAL HERNIA W/O GANGRENE/OBSTRUCTION 200711/29/2014 Follow-up examination, following unspecified massiel joseph 05/02/2008 09/10/2008 INGUINAL HERNIA, UNILATERAL W/O GANGRENE/OBSTRUC TION 04/30/2008 11/29/2014 Tear of medial cartilage or meniscus of knee, cu rrent 03/29/2008 11/29/2014 Benign neoplasm of colon 08/31/2007 015 documented as of this encounter (statuses as of 01/06/2023) [facility] [place] History of Past illness Narrative* Problem Noted Date Diagnosed Date Resolved Date A-fib 11/15/2017 11/16/2017 Overview: Afib from 5pm to 4 AM 11/14-11/15 overnight. No history of AFib A/P: Currently SR. Replete lytes and BB Pleural effusion 11/14/2017 11/16/2017 Overview: A/P: Small B pleural effusion L>R. Gentle diuresis. Wean O2 as tolerated. Monitor xray Atelectasis 11/13/2017 11/16/2017 Overview: A/P Bibasilar atelectasis, improved today Small B pleural effusions remain. Continue BPH: PEP, EZ PEP, CDB, OOBTC, and pain control. On mechanically assisted ventilation 11/12/2017 11/13/2017 Overview: 11/12: post op, WTE Pre-op testing 11/10/2017 11/16/2017 Overview: Images from the original note were not included. [facility] Surgeon: Bogdan Spaulding M.D. Informed Consent Completed:Yes STS Score: .486% CAD: Yes - CAD on Problem List: Yes Is intended procedure a CABG: No - is a beta lisa ordered? No - reason: not a CABG H & P completed: Yes PA/LAT: N/A CT: Completed MRI: N/A LE US: N/A Cath: Yes - reviewed: Yes Echo:Completed EKG: Completed EF %: 61 PI's: N/A Carotid: N/A Mapping: N/A Dental: Completed PFT's: N/A UA: Normal HCG:N/A ABO/ABO Confirmed: YES Blood ordered: No SA Swab: Yes - results: NEGATIVE Last Dose of Anticoagulation: none Op Note: N/A Pacemaker Check: N/A Consults: none DM: No Cardiac Surgical prep: N/A Advanced directives are complete. Patient instructed to have document scanned at J1-1 admitting interview. Pt will bring documents DOS. SIGNATURE: Nettie Corley APRN.BOARD WRITER CHECKED BY: [email or web address] DATE of SERVICE: 11/10/2017 TIME of SERVICE: 12:00 PM Bilateral low back pain with right-sided sciatica 10/02/2015 05/25/2016 Chronic pain of both knees 10/02/2015 1 07/25/2015 Numbness and tingling in both hands 10/02/2015 05/25/2016 Numbness and tingling of both legs 10/02/2015 05/25/2016 Peripheral neuropathy 11/29/20142015 Viral warts, unspecified 09/06/2013 Actinic Keratoses: Premalignant AK's 07/25/2013 11/29/2014 Cutaneous skin tags 07/25/2013 11/30/19 15 Ganglion and cyst of synoviu m, tendon and bursa 03/02/2013 11/29/2014 Inclusion cyst 01/16/2013 03/02/2013 UMBILICAL HERNIA W/O GANGRENE/OBSTRUCTION 05/28/2008 11/29/2014 Follow-up examination, follo wing unspecified surgery 05/02/2008 09/10/2008 INGUINAL HERNIA, UNILATERAL W/O GANGRENE/OBSTRUCTION 04/30/2008 11/29/2014 Tear of medial cartilage or meniscus of knee, current 03/29/2008 11/29/2014 Benign neoplasm of colon 08/31/2007 documented as of this encounter (statuses as of 01/25/2023) [facility] [place] History of Past illness Narrative* Problem Noted Date Diagnosed Date Resolved Date A-fib 11/15/2017 11/16/2017 Overview: Afib from 5pm to 4 AM 5/6-5/7 overnight. No history of AFib A/P: Currently SR. Replete lytes and BB Pleural effusion 11/14/2017 11/16/2017 Overview: A/P: Small B pleural effusion L>R. Gentle diuresis. Wean O2 as tolerated. Monitor xray Atelectasis 11/13/2017 11/16/2017 Overview: A/P Bibasilar atelectasis, improved today Small B pleural effusions remain. Continue BPH: PEP, EZ PEP, CDB, OOBTC, and pain control. On mechanically assisted ventilation 11/12/2017 11/13/2017 Overview: 11/12: post op, WTE Pre-op testing 11/10/2017 11/16/2017 Overview: Images from the original note were not included. [facility] Surgeon: Bogdan Spaulding M.D. Informed Consent Completed:Yes STS Score: .486% CAD: Yes - CAD on Problem List: Yes Is intended procedure a CABG: No - is a beta lisa ordered? No - reason: not a CABG H & P completed: Yes PA/LAT: N/A CT: Completed MRI: N/A LE US: N/A Cath: Yes - reviewed: Yes Echo:Completed EKG: Completed EF %: 61 PI's: N/A Carotid: N/A Mapping: N/A Dental: Completed PFT's: N/A UA: Normal HCG:N/A ABO/ABO Confirmed: YES Blood ordered: No SA Swab: Yes - results: NEGATIVE Last Dose of Anticoagulation: none Op Note: N/A Pacemaker Check: N/A Consults: none DM: No Cardiac Surgical prep: N/A Advanced directives are complete. Patient instructed to have document scanned at J1-1 admitting interview. Pt will bring documents DOS. SIGNATURE: Nettie Corley APRN.BOARD WRITER CHECKED BY: [email or web address] DATE of SERVICE: 11/10/2017 TIME of SERVICE: 12:00 PM Bilateral low back pain with right-sided sciatica 10/02/2015 05/25/2016 Chronic pain of both knees 10/02/2015 1 07/25/2015 Numbness and tingling in both hands 10/02/2015 05/25/2016 Numbness and tingling of both legs 10/02/2015 05/25/2016 Peripheral neuropathy 11/29/20142015 Viral warts, unspecified 09/06/2013 Actinic Keratoses: Premalignant AK's 07/25/2013 11/29/2014 Cutaneous skin tags 07/25/2013 11/30/19 15 Ganglion and cyst of synoviu m, tendon and bursa 03/02/2013 11/29/2014 Inclusion cyst 01/16/2013 03/02/2013 UMBILICAL HERNIA W/O GANGRENE/OBSTRUCTION 05/28/2008 11/29/2014 Follow-up examination, follo wing unspecified surgery 05/02/2008 09/10/2008 INGUINAL HERNIA, UNILATERAL W/O GANGRENE/OBSTRUCTION 04/30/2008 11/29/2014 Tear of medial cartilage or meniscus of knee, current 03/29/2008 11/29/2014 Benign neoplasm of colon 08/31/2007 documented as of this encounter (statuses as of 02/17/2023) [facility] [place] History of Past illness Narrative* Problem Noted Date Diagnosed Date Resolved Date A-fib 11/15/2017 11/16/2017 Overview: Afib from 5pm to 4 AM 11/14-11/15 overnight. No history of AFib A/P: Currently SR. Replete lytes and BB Pleural effusion 11/14/2017 11/16/2017 Overview: A/P: Small B pleural effusion L>R. Gentle diuresis. Wean O2 as tolerated. Monitor xray Atelectasis 11/13/2017 11/16/2017 Overview: A/P Bibasilar atelectasis, improved today Small B pleural effusions remain. Continue BPH: PEP, EZ PEP, CDB, OOBTC, and pain control. On mechanically assisted ventilation 11/12/2017 11/13/2017 Overview: 11/12: post op, WTE Pre-op testing 11/10/2017 11/16/2017 Overview: Images from the original note were not included. [facility] Surgeon: Bogdan Spaulding M.D. Informed Consent Completed:Yes STS Score: .486% CAD: Yes - CAD on Problem List: Yes Is intended procedure a CABG: No - is a beta lisa ordered? No - reason: not a CABG H & P completed: Yes PA/LAT: N/A CT: Completed MRI: N/A LE US: N/A Cath: Yes - reviewed: Yes Echo:Completed EKG: Completed EF %: 61 PI's: N/A Carotid: N/A Mapping: N/A Dental: Completed PFT's: N/A UA: Normal HCG:N/A ABO/ABO Confirmed: YES Blood ordered: No SA Swab: Yes - results: NEGATIVE Last Dose of Anticoagulation: none Op Note: N/A Pacemaker Check: N/A Consults: none DM: No Cardiac Surgical prep: N/A Advanced directives are complete. Patient instructed to have document scanned at J1-1 admitting interview. Pt will bring documents DOS. SIGNATURE: Nettie Corley APRN.BOARD WRITER CHECKED BY: [email or web address] DATE of SERVICE: 11/10/2017 TIME of SERVICE: 12:00 PM Bilateral low back pain with right-sided sciatica 10/02/2015 05/25/2016 Chronic pain of both knees 10/02/2015 1 07/25/2015 Numbness and tingling in both hands 10/02/2015 05/25/2016 Numbness and tingling of both legs 10/02/2015 05/25/2016 Peripheral neuropathy 11/29/20142015 Viral warts, unspecified 09/06/2013 Actinic Keratoses: Premalignant AK's 07/25/2013 11/29/2014 Cutaneous skin tags 07/25/2013 11/30/19 15 Ganglion and cyst of synoviu m, tendon and bursa 03/02/2013 11/29/2014 Inclusion cyst 01/16/2013 03/02/2013 UMBILICAL HERNIA W/O GANGRENE/OBSTRUCTION 05/28/2008 11/29/2014 Follow-up examination, follo wing unspecified surgery 05/02/2008 09/10/2008 INGUINAL HERNIA, UNILATERAL W/O GANGRENE/OBSTRUCTION 04/30/2008 11/29/2014 Tear of medial cartilage or meniscus of knee, current 03/29/2008 11/29/2014 Benign neoplasm of colon 08/31/2007 documented as of this encounter (statuses as of 03/15/2023) [facility] [place]2018 History of Past illness Narrative* Problem Noted Date Diagnosed Date Resolved Date A-fib 11/15/2017 11/16/2017 Overview: Afib from 5pm to 4 AM 5/6-5/7 overnight. No history of AFib A/P: Currently SR. Replete lytes and BB Pleural effusion 11/14/2017 11/16/2017 Overview: A/P: Small B pleural effusion L>R. Gentle diuresis. Wean O2 as tolerated. Monitor xray Atelectasis 11/13/2017 11/16/2017 Overview: A/P Bibasilar atelectasis, improved today Small B pleural effusions remain. Continue BPH: PEP, EZ PEP, CDB, OOBTC, and pain control. On mechanically assisted ventilation 11/12/2017 11/13/2017 Overview: 11/12: post op, WTE Pre-op testing 11/10/2017 11/16/2017 Overview: Images from the original note were not included. [facility] Surgeon: Bogdan Spaulding M.D. Informed Consent Completed:Yes STS Score: .486% CAD: Yes - CAD on Problem List: Yes Is intended procedure a CABG: No - is a beta lisa ordered? No - reason: not a CABG H & P completed: Yes PA/LAT: N/A CT: Completed MRI: N/A LE US: N/A Cath: Yes - reviewed: Yes Echo:Completed EKG: Completed EF %: 61 PI's: N/A Carotid: N/A Mapping: N/A Dental: Completed PFT's: N/A UA: Normal HCG:N/A ABO/ABO Confirmed: YES Blood ordered: No SA Swab: Yes - results: NEGATIVE Last Dose of Anticoagulation: none Op Note: N/A Pacemaker Check: N/A Consults: none DM: No Cardiac Surgical prep: N/A Advanced directives are complete. Patient instructed to have document scanned at J1-1 admitting interview. Pt will bring documents DOS. SIGNATURE: Nettie Corley APRN.BOARD WRITER CHECKED BY: [email or web address] DATE of SERVICE: 11/10/2017 TIME of SERVICE: 12:00 PM Bilateral low back pain with right-sided sciatica 10/02/2015 05/25/2016 Chronic pain of both knees 10/02/2015 1 07/25/2015 Numbness and tingling in both hands 10/02/2015 05/25/2016 Numbness and tingling of both legs 10/02/2015 05/25/2016 Peripheral neuropathy 11/29/20142015 Viral warts, unspecified 09/06/2013 Actinic Keratoses: Premalignant AK's 07/25/2013 11/29/2014 Cutaneous skin tags 07/25/2013 11/30/19 15 Ganglion and cyst of synoviu m, tendon and bursa 03/02/2013 11/29/2014 Inclusion cyst 01/16/2013 03/02/2013 UMBILICAL HERNIA W/O GANGRENE/OBSTRUCTION 05/28/2008 11/29/2014 Follow-up examination, follo wing unspecified surgery 05/02/2008 09/10/2008 INGUINAL HERNIA, UNILATERAL W/O GANGRENE/OBSTRUCTION 04/30/2008 11/29/2014 Tear of medial cartilage or meniscus of knee, current 03/29/2008 11/29/2014 Benign neoplasm of colon 08/31/2007 documented as of this encounter (statuses as of 04/18/2023) [facility] [place]2018 History of Past illness Narrative* Problem Noted Date Diagnosed Date Resolved Date A-fib 11/15/2017 11/16/2017 Overview: Afib from 5pm to 4 AM 56-57 overnight. No history of AFib A/P: Currently SR. Replete lytes and BB Pleural effusion 11/14/2017 11/16/2017 Overview: A/P: Small B pleural effusion L>R. Gentle diuresis. Wean O2 as tolerated. Monitor xray Atelectasis 11/13/2017 11/16/2017 Overview: A/P Bibasilar atelectasis, improved today Small B pleural effusions remain. Continue BPH: PEP, EZ PEP, CDB, OOBTC, and pain control. On mechanically assisted ventilation 11/12/2017 11/13/2017 Overview: 11/12: post op, WTE Pre-op testing 11/10/2017 11/16/2017 Overview: Images from the original note were not included. [facility] Surgeon: Bogdan Spaulding M.D. Informed Consent Completed:Yes STS Score: .486% CAD: Yes - CAD on Problem List: Yes Is intended procedure a CABG: No - is a beta lisa ordered? No - reason: not a CABG H & P completed: Yes PA/LAT: N/A CT: Completed MRI: N/A LE US: N/A Cath: Yes - reviewed: Yes Echo:Completed EKG: Completed EF %: 61 PI's: N/A Carotid: N/A Mapping: N/A Dental: Completed PFT's: N/A UA: Normal HCG:N/A ABO/ABO Confirmed: YES Blood ordered: No SA Swab: Yes - results: NEGATIVE Last Dose of Anticoagulation: none Op Note: N/A Pacemaker Check: N/A Consults: none DM: No Cardiac Surgical prep: N/A Advanced directives are complete. Patient instructed to have document scanned at J1-1 admitting interview. Pt will bring documents DOS. SIGNATURE: Nettie Corley APRN.BOARD WRITER CHECKED BY: [email or web address] DATE of SERVICE: 11/10/2017 TIME of SERVICE: 12:00 PM Bilateral low back pain with right-sided sciatica 10/02/2015 05/25/2016 Chronic pain of both knees 10/02/2015 1 07/25/2015 Numbness and tingling in both hands 10/02/2015 05/25/2016 Numbness and tingling of both legs 10/02/2015 05/25/2016 Peripheral neuropathy 11/29/20142015 Viral warts, unspecified 09/06/2013 Actinic Keratoses: Premalignant AK's 07/25/2013 11/29/2014 Cutaneous skin tags 07/25/2013 11/30/19 15 Ganglion and cyst of synoviu m, tendon and bursa 03/02/2013 11/29/2014 Inclusion cyst 01/16/2013 03/02/2013 UMBILICAL HERNIA W/O GANGRENE/OBSTRUCTION 05/28/2008 11/29/2014 Follow-up examination, follo wing unspecified surgery 05/02/2008 09/10/2008 INGUINAL HERNIA, UNILATERAL W/O GANGRENE/OBSTRUCTION 04/30/2008 11/29/2014 Tear of medial cartilage or meniscus of knee, current 03/29/2008 11/29/2014 Benign neoplasm of colon 08/31/2007 documented as of this encounter (statuses as of 06/04/2023) [facility] [place]2018 History of Past illness Narrative* Problem Noted Date Diagnosed Date Resolved Date A-fib 11/15/2017 11/16/2017 Overview: Afib from 5pm to 4 AM 5/6-5/7 overnight. No history of AFib A/P: Currently SR. Replete lytes and BB Pleural effusion 11/14/2017 11/16/2017 Overview: A/P: Small B pleural effusion L>R. Gentle diuresis. Wean O2 as tolerated. Monitor xray Atelectasis 11/13/2017 11/16/2017 Overview: A/P Bibasilar atelectasis, improved today Small B pleural effusions remain. Continue BPH: PEP, EZ PEP, CDB, OOBTC, and pain control. On mechanically assisted ventilation 11/12/2017 11/13/2017 Overview: 11/12: post op, WTE Pre-op testing 11/10/2017 11/16/2017 Overview: Images from the original note were not included. [facility] Surgeon: Bogdan Spaulding M.D. Informed Consent Completed:Yes STS Score: .486% CAD: Yes - CAD on Problem List: Yes Is intended procedure a CABG: No - is a beta lisa ordered? No - reason: not a CABG H & P completed: Yes PA/LAT: N/A CT: Completed MRI: N/A LE US: N/A Cath: Yes - reviewed: Yes Echo:Completed EKG: Completed EF %: 61 PI's: N/A Carotid: N/A Mapping: N/A Dental: Completed PFT's: N/A UA: Normal HCG:N/A ABO/ABO Confirmed: YES Blood ordered: No SA Swab: Yes - results: NEGATIVE Last Dose of Anticoagulation: none Op Note: N/A Pacemaker Check: N/A Consults: none DM: No Cardiac Surgical prep: N/A Advanced directives are complete. Patient instructed to have document scanned at J1-1 admitting interview. Pt will bring documents DOS. SIGNATURE: Nettie Corley APRN.BOARD WRITER CHECKED BY: [email or web address] DATE of SERVICE: 11/10/2017 TIME of SERVICE: 12:00 PM Bilateral low back pain with right-sided sciatica 10/02/2015 05/25/2016 Chronic pain of both knees 10/02/2015 1 07/25/2015 Numbness and tingling in both hands 10/02/2015 05/25/2016 Numbness and tingling of both legs 10/02/2015 05/25/2016 Peripheral neuropathy 11/29/20142015 Viral warts, unspecified 09/06/2013 Actinic Keratoses: Premalignant AK's 07/25/2013 11/29/2014 Cutaneous skin tags 07/25/2013 11/30/19 15 Ganglion and cyst of synoviu m, tendon and bursa 03/02/2013 11/29/2014 Inclusion cyst 01/16/2013 03/02/2013 UMBILICAL HERNIA W/O GANGRENE/OBSTRUCTION 05/28/2008 11/29/2014 Follow-up examination, follo wing unspecified surgery 05/02/2008 09/10/2008 INGUINAL HERNIA, UNILATERAL W/O GANGRENE/OBSTRUCTION 04/30/2008 11/29/2014 Tear of medial cartilage or meniscus of knee, current 03/29/2008 11/29/2014 Benign neoplasm of colon 08/31/2007 documented as of this encounter (statuses as of 08/17/2023) [facility] [place] History of Past illness Narrative* Problem Noted Date Diagnosed Date Resolved Date A-fib 11/15/2017 11/16/2017 Overview: Afib from 5pm to 4 AM 5/6-5/7 overnight. No history of AFib A/P: Currently SR. Replete lytes and BB Pleural effusion 11/14/2017 11/16/2017 Overview: A/P: Small B pleural effusion L>R. Gentle diuresis. Wean O2 as tolerated. Monitor xray Atelectasis 11/13/2017 11/16/2017 Overview: A/P Bibasilar atelectasis, improved today Small B pleural effusions remain. Continue BPH: PEP, EZ PEP, CDB, OOBTC, and pain control. On mechanically assisted ventilation 11/12/2017 11/13/2017 Overview: 11/12: post op, WTE Pre-op testing 11/10/2017 11/16/2017 Overview: Images from the original note were not included. [facility] Surgeon: Bogdan Spaulding M.D. Informed Consent Completed:Yes STS Score: .486% CAD: Yes - CAD on Problem List: Yes Is intended procedure a CABG: No - is a beta lisa ordered? No - reason: not a CABG H & P completed: Yes PA/LAT: N/A CT: Completed MRI: N/A LE US: N/A Cath: Yes - reviewed: Yes Echo:Completed EKG: Completed EF %: 61 PI's: N/A Carotid: N/A Mapping: N/A Dental: Completed PFT's: N/A UA: Normal HCG:N/A ABO/ABO Confirmed: YES Blood ordered: No SA Swab: Yes - results: NEGATIVE Last Dose of Anticoagulation: none Op Note: N/A Pacemaker Check: N/A Consults: none DM: No Cardiac Surgical prep: N/A Advanced directives are complete. Patient instructed to have document scanned at J1-1 admitting interview. Pt will bring documents DOS. SIGNATURE: Nettie Corley APRN.BOARD WRITER CHECKED BY: [email or web address] DATE of SERVICE: 11/10/2017 TIME of SERVICE: 12:00 PM Bilateral low back pain with right-sided sciatica 10/02/2015 05/25/2016 Chronic pain of both knees 10/02/2015 1 07/25/2015 Numbness and tingling in both hands 10/02/2015 05/25/2016 Numbness and tingling of both legs 10/02/2015 05/25/2016 Peripheral neuropathy 11/29/20142015 Viral warts, unspecified 09/06/2013 Actinic Keratoses: Premalignant AK's 07/25/2013 11/29/2014 Cutaneous skin tags 07/25/2013 05/21/20 15 Ganglion and cyst of synoviu m, tendon and bursa 03/02/2013 11/29/2014 Inclusion cyst 01/16/2013 03/02/2013 UMBILICAL HERNIA W/O GANGRENE/OBSTRUCTION 05/28/2008 11/29/2014 Follow-up examination, follo wing unspecified surgery 05/02/2008 09/10/2008 INGUINAL HERNIA, UNILATERAL W/O GANGRENE/OBSTRUCTION 04/30/2008 11/29/2014 Tear of medial cartilage or meniscus of knee, current 03/29/2008 11/29/2014 Benign neoplasm of colon 08/31/2007 documented as of this encounter (statuses as of 08/19/2023) [facility] complaint+Reason for visit Narrative* Chief Complaint PRE PROCEDURE PRE PROCEDURE [facility] Work Phone: Chief complaint+Reason for visit Narrative* Chief Complaint PRE PROCEDURE PRE PROCEDURE PRE OP TESTING [facility] Work Phone: Evaluation note* Diagnosis Paronychia of finger of left hand- Primary Bilateral impacted cerumen Impacted cerumen [facility] [place] Diagnosis Essential hypertension- Primary Unspecified essential hypertension S/P AVR (aortic valve replacement) Heart valve replaced by other means documented [facility] [place]* Diagnosis Essential hypertension, benign- Primary ED (erectile dysfunction) of organic origin Impotence of organic origin Obesity, Class III, BMI 40-49.9 (morbid obesity) (HCC) Morbid obesity Arthritis of knee Unspecified arthropathy, lower leg Impaired fasting glucose Hyperlipidemia LDL goal <130 Other and unspecified hyperlipidemia Family history of prostate cancer in father Need for pneumococcal vaccine Need for prophylactic vaccination against streptococcus pneumoniae (pneumococcus) Benign prostatic hyperplasia, unspecified whether lower urinary tract symptoms present History of aortic valve replacement with bioprosthetic valve Heart valve replaced by transplant documented [facility] [place] Diagnosis Bilateral impacted cerumen- Primary Impacted cerumen [facility] [place]* Diagnosis Sore throat- Primary Acute pharyngitis URI, acute Acute upper respiratory infections of unspecified site Exposure to strep throat Contact with or exposure to other communicable diseases documented in this encounter [facility] [place] noteNo assessment information availableWSumma Health Work Phone: [facility] note* Diagnosis Nonrheumatic aortic valve stenosis- Primary Aortic valve disorders [facility]* Diagnosis Bilateral impacted cerumen- Primary Impacted cerumen documented in this encounter [facility] note* Diagnosis Insomnia, unspecified type- Primary Sleep disorder Sleep disturbance, unspecified Obesity, Class III, BMI 40-49.9 (morbid obesity) (HCC) Morbid obesity Essential hypertension, benign 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 Arthritis of knee Unspecified arthropathy, lower leg documented in this encounter [facility] note* Diagnosis Hyperlipidemia with target LDL less than 100 Other and unspecified hyperlipidemia [facility]* Diagnosis Encounter for Medicare annual wellness exam- Primary Routine general medical examination at a [facility] Left groin pain Abdominal pain, left lower quadrant Essential hypertension, benign Hyperlipidemia LDL goal <130 Other and unspecified hyperlipidemia Obesity, Class III, BMI 40-49.9 (morbid obesity) (HCC) Morbid obesity Presence of prosthetic heart valve Heart valve replaced by other means Arthritis of knee Unspecified arthropathy, lower leg documented in this encounter [facility] note* Diagnosis Obesity, Class II, BMI 35-39.9- Primary Obesity, unspecified S/P AVR Heart valve replaced by other means [facility]* Diagnosis Bilateral impacted cerumen- Primary Impacted cerumen documented in this encounter [facility] note* Diagnosis Essential hypertension, benign- Primary Hyperlipidemia LDL goal <130 Other and unspecified hyperlipidemia Impaired fasting glucose documented in this encounter [facility] note* Diagnosis Essential hypertension, benign- Primary History of aortic valve replacement with bioprosthetic valve Heart valve replaced by transplant Hyperlipidemia LDL goal <130 Other and unspecified hyperlipidemia Impaired fasting glucose Sleep disorder Sleep disturbance, unspecified ED (erectile dysfunction) of organic origin Impotence of organic origin Benign prostatic hyperplasia, unspecified whether lower urinary tract symptoms present S/P TKR (total knee replacement), bilateral Bilateral groin pain Abdominal pain, unspecified site Cough, unspecified type Obesity, Class III, BMI 40-49.9 (morbid obesity) (HCC) Morbid obesity [facility]* Diagnosis Nonrheumatic aortic valve stenosis- Primary Aortic valve disorders Encounter for follow-up for aortic valve replacement Follow-up examination, following other surgery [facility] Diagnosis Bilateral impacted cerumen- Primary Impacted cerumen [facility]* Diagnosis Essential hypertension, benign- Primary Hyperlipidemia LDL goal <130 Other and unspecified hyperlipidemia Impaired fasting glucose Obstructive sleep apnea syndrome Obstructive sleep apnea (adult) (pediatric) History of aortic valve replacement with bioprosthetic valve Heart valve replaced by transplant ED (erectile dysfunction) of organic origin Impotence of organic origin Screening for depression Encounter for screening examination for other mental health and behavioral disorders Pre-op exam Preoperative examination, unspecified [facility] Diagnosis Insomnia, unspecified type- Primary Sleep disorder Sleep disturbance, unspecified Obesity, Class III, BMI 40-49.9 (morbid obesity) [facility] Morbid obesity Essential hypertension, benign 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 Arthritis of knee Unspecified arthropathy, lower leg Bilateral impacted cerumen- Primary Impacted cerumen Acute infective otitis externa, bilateral [facility] Diagnosis Insomnia, unspecified type- Primary Sleep disorder Sleep disturbance, unspecified Obesity, Class III, BMI 40-49.9 (morbid obesity) ([facility]) Morbid obesity Essential hypertension, benign 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 Arthritis of knee Unspecified arthropathy, lower leg Bilateral impacted cerumen- Primary Impacted cerumen [facility] Diagnosis Insomnia, unspecified type- Primary Sleep disorder Sleep disturbance, unspecified Obesity, Class III, BMI 40-49.9 (morbid obesity) ([facility]) Morbid obesity Essential hypertension, benign 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 Arthritis of knee Unspecified arthropathy, lower leg Obstructive sleep apnea syndrome- Primary Obstructive sleep apnea (adult) (pediatric) Hypoxemia during surgery Pre-op exam Preoperative examination, unspecified History of aortic valve replacement with bioprosthetic valve Heart valve replaced by transplant 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 Essential hypertension, benign Acute otitis externa of right ear, unspecified type [facility]* Diagnosis Bronchitis Bronchitis, not specified as acute or chronic Abnormal chest x-ray Other nonspecific abnormal finding of lung field Insomnia, unspecified type- Primary Sleep disorder Sleep disturbance, unspecified Obesity, Class III, BMI 40-49.9 (morbid obesity) ([facility]) Morbid obesity Essential hypertension, benign 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 Arthritis of knee Unspecified arthropathy, lower leg [facility]* Diagnosis Cough Insomnia, unspecified type- Primary Sleep disorder Sleep disturbance, unspecified Obesity, Class III, BMI 40-49.9 (morbid obesity) ([facility]) Morbid obesity Essential hypertension, benign 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 Arthritis of knee Unspecified arthropathy, lower leg [facility]* Diagnosis Chronic cough Cough Insomnia, unspecified type- Primary Sleep disorder Sleep disturbance, unspecified Obesity, Class III, BMI 40-49.9 (morbid obesity) ([facility]) Morbid obesity Essential hypertension, benign 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 Arthritis of knee Unspecified arthropathy, lower leg [facility]* Diagnosis Insomnia, unspecified type- Primary Sleep disorder Sleep disturbance, unspecified Obesity, Class III, BMI 40-49.9 (morbid obesity) ([facility]) Morbid obesity Essential hypertension, benign 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 Arthritis of knee Unspecified arthropathy, lower leg S/P AVR- Primary Heart valve replaced by other means [facility] Diagnosis Insomnia, unspecified type- Primary Sleep disorder Sleep disturbance, unspecified Obesity, Class III, BMI 40-49.9 (morbid obesity) ([facility]) Morbid obesity Essential hypertension, benign 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 Arthritis of knee Unspecified arthropathy, lower leg Bilateral impacted cerumen- Primary Impacted cerumen Olecranon bursitis of right elbow Olecranon bursitis documented [facility]* Diagnosis Insomnia, unspecified type- Primary Sleep disorder Sleep disturbance, unspecified Obesity, Class III, BMI 40-49.9 (morbid obesity) ([facility]) Morbid obesity Essential hypertension, benign 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 Arthritis of knee Unspecified arthropathy, lower leg Essential hypertension, benign- Primary Hyperlipidemia LDL goal <130 Other and unspecified hyperlipidemia 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 History of aortic valve replacement with bioprosthetic valve Heart valve replaced by transplant Obstructive sleep apnea syndrome Obstructive sleep apnea (adult) (pediatric) ED (erectile dysfunction) of organic origin Impotence of organic origin Elevated glucose Other abnormal glucose Screening for colon cancer Special screening for malignant neoplasms, colon Screening for prostate cancer Special screening for malignant neoplasm of prostate documented in this encounter [facility] note* Diagnosis Insomnia, unspecified type- Primary Sleep disorder Sleep disturbance, unspecified Obesity, Class III, BMI 40-49.9 (morbid obesity) (HCC) Morbid obesity Essential hypertension, benign 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 Arthritis of knee Unspecified arthropathy, lower leg Sore throat- Primary Acute pharyngitis Acute pharyngitis, unspecified etiology documented in this encounter [facility] note* Diagnosis Insomnia, unspecified type- Primary Sleep disorder Sleep disturbance, unspecified Obesity, Class III, BMI 40-49.9 (morbid obesity) ([facility]) Morbid obesity Essential hypertension, benign 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 Arthritis of knee Unspecified arthropathy, lower leg Essential hypertension, benign- Primary Bilateral leg edema Edema Presence of prosthetic heart valve Heart valve replaced by other means documented in this encounter [facility] note* Diagnosis Insomnia, unspecified type- Primary Sleep disorder Sleep disturbance, unspecified Obesity, Class III, BMI 40-49.9 (morbid obesity) (HCC) Morbid obesity Essential hypertension, benign 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 Arthritis of knee Unspecified arthropathy, lower leg Injury of finger of left hand, initial encounter- Primary Injury of finger of left hand, initial encounter documented [facility]* Diagnosis Insomnia, unspecified type- Primary Sleep disorder Sleep disturbance, unspecified Obesity, Class III, BMI 40-49.9 (morbid obesity) ([facility]) Morbid obesity Essential hypertension, benign 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 Arthritis of knee Unspecified arthropathy, lower leg Injury of finger of left hand, initial encounter documented in this encounter [facility] note* Diagnosis Insomnia, unspecified type- Primary Sleep disorder Sleep disturbance, unspecified Obesity, Class III, BMI 40-49.9 (morbid obesity) ([facility]) Morbid obesity Essential hypertension, benign 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 Arthritis of knee Unspecified arthropathy, lower leg Injury of finger of left hand, initial encounter Mallet finger of left finger(s) documented in this encounter [facility] note* Diagnosis Insomnia, unspecified type- Primary Sleep disorder Sleep disturbance, unspecified Obesity, Class III, BMI 40-49.9 (morbid obesity) ([facility]) Morbid obesity Essential hypertension, benign 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 Arthritis of knee Unspecified arthropathy, lower leg Bilateral leg edema- Primary Edema Essential (primary) hypertension Unspecified essential hypertension documented in this encounter [facility] note* Diagnosis Insomnia, unspecified type- Primary Sleep disorder Sleep disturbance, unspecified Obesity, Class III, BMI 40-49.9 (morbid obesity) (HCC) Morbid obesity Essential hypertension, benign 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 Arthritis of knee Unspecified arthropathy, lower leg Mallet finger of left finger(s)- Primary Primary osteoarthritis, left hand documented in this encounter [facility] note* Diagnosis Insomnia, unspecified type- Primary Sleep disorder Sleep disturbance, unspecified Obesity, Class III, BMI 40-49.9 (morbid obesity) (HCC) Morbid obesity Essential hypertension, benign 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 Arthritis of knee Unspecified arthropathy, lower leg Essential (primary) hypertension- Primary Unspecified essential hypertension Bilateral leg edema Edema Primary osteoarthritis, left hand Screening for depression Morbid (severe) obesity due to excess calories ([facility]) Encounter for screening examination for other mental health and behavioral disorders Screening for colon cancer Special screening for malignant neoplasms, colon Impaired fasting glucose Hyperlipidemia LDL goal <130 Other and unspecified hyperlipidemia Right ear pain Otalgia, unspecified documented in this encounter [facility] note* Diagnosis Insomnia, unspecified type- Primary Sleep disorder Sleep disturbance, unspecified Obesity, Class III, BMI 40-49.9 (morbid obesity) ([facility]) Morbid obesity Essential hypertension, benign 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 Arthritis of knee Unspecified arthropathy, lower leg History of colonic polyps- Primary Personal history of colonic polyps Screening for colon cancer Special screening for malignant neoplasms, colon documented in this encounter [facility] note* Diagnosis Insomnia, unspecified type- Primary Sleep disorder Sleep disturbance, unspecified Obesity, Class III, BMI 40-49.9 (morbid obesity) (HCC) Morbid obesity Essential hypertension, benign 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 Arthritis of knee Unspecified arthropathy, lower leg Screening for colon cancer Special screening for malignant neoplasms, colon History of colonic polyps Personal history of colonic polyps documented in this encounter [facility] for referral (narrative)* Outpatient Procedure (Routine) - Authorized Specialty Diagnoses / Procedures Referred By Sergo pike Referred To Contact [facility] Diagnoses Essential hypertension S/P AVR (aortic valve replacement) Procedures ECG COMPLETE ECG ROUTINE ECG W/LEAST 12 LDS W/I&R Jarvis Lake MD [address] [place] [address] [address] Referral ID Status Reason Start Date Expiration Date Visits Requested Visits Authorized [id number] Authorized Auto-Generat ed Referral 11/11/2021 11/11/2022 1 1 [facility] for referral (narrative)* Outpatient Procedure (Routine) - Authorized Specialty Diagnoses / Procedures Referred By Sergo pike Referred To Contact [facility] Diagnoses Nonrheumatic aortic valve stenosis Procedures ECHO ECHO TTHRC R-T 2D W/WOM-MODE COMPL SPEC&COLR D Jarvis Lake MD [address] [place] [address] [address] Referral ID Status Reason Start Date Expiration Date Visits Requested Visits Authorized [id number] Authorized Auto-Generat ed Referral 11/25/2022 11/25/2023 1 1 * Outpatient Procedure (Routine) - Authorized Specialty Diagnoses / Procedures Referred By Sergo pike Referred To Contact [facility] Diagnoses Nonrheumatic aortic valve stenosis Procedures ECG COMPLETE ECG ROUTINE ECG W/LEAST 12 LDS W/I&R Jarvis Lake MD [address] [place] [address] [address] Referral ID Status Reason Start Date Expiration Date Visits Requested Visits Authorized [id number] Authorized Auto-Generat ed Referral 11/25/2022 11/25/2023 1 1 [facility] for referral (narrative)* Outpatient Procedure (Routine) - Authorized Specialty Diagnoses / Procedures Referred By Sergo t Referred To Contact [facility] Diagnoses Nonrheumatic aortic valve stenosis Encounter for follow-up for aortic valve replacement Procedures ECG COMPLETE ECG ROUTINE ECG W/LEAST 12 LDS W/I&R Jarvis Lake MD [address] [place] [address] [address] Referral ID Status Reason Start Date Expiration Date Visits Requested Visits Authorized [id number] Authorized Auto-Generat ed Referral 12/09/2023 12/08/2024 1 1 [facility] for referral (narrative)* Outpatient Procedure (Routine) - New Request Specialty Diagnoses / Procedures Referred By Sergo pike Referred To Contact [facility] Diagnoses S/P AVR Procedures ECHO ECHO TTHRC R-T 2D W/WOM-MODE COMPL SPEC&COLR D Jarvis Lake MD [address] [place] [address] [address] Referral ID Status Reason Start Date Expiration Date Visits Requested Visits Authorized [id number] New Request Auto-Generat ed Referral 05/06/2025 1 1 * Outpatient Procedure (Routine) - New Request Specialty Diagnoses / Procedures Referred By Contac t Referred To Contact [facility] Diagnoses S/P AVR Procedures ECG COMPLETE ECG ROUTINE ECG W/LEAST 12 LDS W/I&R Jairo, Jarvis, MD [address] [place] [address] [address] Referral ID Status Reason Start Date Expiration Date Visits Requested Visits Authorized [id number] New Request Auto-Generat ed Referral 05/06/2025 1 1 * Transition of Care (Routine) - Ref Not Required Specialty Diagnoses / Procedures Referred By Sergo pike Referred To Contact [facility] Procedures CARDIOVASCULAR MEDICINE OP FOLLOW UP APPT ORDER Jarvis Lake MD [address] [place] [address] [address] Referral ID Status Reason Start Date Expiration Date Visits Requested Visits Authorized [id number] Ref Not Required PCP Requested Referral 02/05/2025 05/06/2025 1 1 [facility] for visit Narrative* Diagnostic Procedure Only (Urgent) - Closed Specialty Diagnoses / Procedures Referred By Sergo pike Referred To Contact [facility] Diagnoses Injury of finger of left hand, initial encounter Procedures XR DIGIT GENERAL 3V FRONTAL/LAT/OBL LEFT RADEX FINGR MINIMUM 2 VIEWS Bull Mascorro APRN.BOARD WRITER [address] [place] [address] Phone: tel: fax: [place] [phone] Referral ID Status Reason Start Date Expiration Date V isits Requested Visits Authorized [id number] Closed Auto-Generate d Referral 01/08/2025 02/07/2026 1 1 [facility] for visit Narrative* Outpatient Procedure (Routine) - Closed Specialty Diagnoses / Procedures Referred By Sergo pike Referred To Contact [facility] Diagnoses Screening for colon cancer History of colonic polyps Procedures COLONOSCOPY SCREENING COLONOSCOPY FLX DX W/COLLJ SPEC WHEN PFRMVa Bernstein APRN.BOARD WRITER [address] [place] [address] Phone: tel: fax: [facility] [address] [place] [address] Referral ID Status Reason Start Date Expiration Date V isits Requested Visits Authorized [id number] Closed Auto-Generate d Referral 02/28/2025 02/28/2026 1 1 [facility] Chief Complaint Chief Complaint Description Start Date bilateral thumb finger pain Preliminary chief co mplaint data, not yet signed by the author as of Instructions Instruction Description Start Date CompletedPatient advised to follow-up with Primary Care Physician for BMI management. 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 Advance Directive(s) 02/05/2020 2:02 PM Advance Directive(s) 01/24/2020 12:34 PM Advance Directive(s) 11/12/2017 10:03 AM Advance Directive(s) 11/12/2017 10:02 AM Advance Directive(s) 11/10/2017 2:23 PM Advance Directive(s) 10/01/2017 9:12 AM PT HAS NO AD Advance Directive(s) 10/12/2016 9:16 AM Advance Directive(s) 09/04/2016 4:54 PM Documents on File Type Date Recorded 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 Review of System There may be information available, but it has not been provided by the sender. Family History No Family History Records Found Relationship Condition Age at Onset Recorded Date/T jamison Not Specified Unknown Unknown History of Present Illness There may be information available, but it has not been provided by the sender. Summary Purpose Chief Complaint and Reason for Visit Chief Complaint PRE OP Chief Complaint PRE OP JULIET; CPAP REPAP *DEVICE TAGGED Additional Source Comments Reason for Visit (unrecogniz ed section and content) Reason For Visit Description New - 1st visit with practice Preliminary reason f or visit data, not yet signed by the author as of bilateral thumb finger pain Reason Onset Date Comments Refill Request 10/09/2021 Reason Comments Finger Pain red and swollen left index finger x 4 days, ear pressure Reason Comments Forms [employer] RE: JULIET suppli es Reason Comments 6 Month Exam Reason Comments Forms Reason Comments Earwax L ear x3 days Reason Comments Sore Throat X 1 day with sinus i ssue Reason Comments pre op form [facility] Reason Comments Ear Problem Left ear feels clogg ed x 4 days Reason Comments Sleep Problem Reason Onset Date Comments Refill Request 01/25/2023 Reason Comments Medicare Wellness Exam Reason Comments Follow Up Valvular Heart Disease Reason Comments Earwax Bilateral ear clogge d Reason Comments F/U 6 Month Reason Onset Date Comments Refill Request 11/08/2023 Reason Comments Forms [employer] re: PAP suppli es Reason Comments Ear Problem bilateral ear clogge d Reason Comments Forms Surgical clearance Reason Comments Ear Problem Left ear clogged sta rted this morning Reason Comments Medication Problem Reason Comments Pre-Op Exam Shoulder surgery can celled for hypoxia Ear Problem Possible still has i nfection in right ear, seen [facility] about 2 weeks ago.Currently has cough Reason Comments Forms Surgical Clearance-[facility] Reason Comments Cardiac Clearance Reason Comments Follow Up s/p avr Reason Comments Pain (Elbow Pain) R elbow swelling x t ingrid Reason Comments 6 Month Exam Reason Comments Sore Throat L ear pain x3 days Reason Comments Refill Request Reason Comments Leg Edema Reason Comments Finger Injury left pinky finger pa in x 6 days, stoved against wall Reason Onset Date Comments Results 01/08/2025 Reason Comments Left 5th finger - ? Mallet finger Referr ed by Ramos Mascorro Specialty Diagnoses / Procedures Referred By Contac t Referred To Contact Orthopedics Diagnoses Injury of finger of left hand, initial encounter Procedures CONSULT TO ORTHOPAEDICS OFFICE/OUTPATIENT [facility] 60 MINUTES Bull Mascorro APRN.BOARD WRITER [address] [place] [address] Phone: tel: fax: Referral ID Status Reason Start Date Expiration Date V isits Requested Visits Authorized [id number] Closed PCP Requested Referral 01/08/2025 01/08/2026 1 1 Reason Onset Date Comments Refill Request 01/18/2025 Reason Comments Follow Up BP & edema Reason Comments right 5th mallet finger Reason Onset Date Comments Population Health Navigation Outreach 02/21/2025 [facility] WORK[facility] Reason Comments 6 Month Exam Ear Infection Right Reason Comments Consult Due for colonoscopy, denies GI issues Specialty Diagnoses / Procedures Referred By Contac t Referred To Contact General Surgery Diagnoses Screening for colon cancer Procedures OFFICE/OUTPATIENT [facility] 60 MINUTES Ye Sharma APRN.BOARD WRITER [address] [place] [address] Phone: tel: fax: Referral ID Status Reason Start Date Expiration Date V isits Requested Visits Authorized [id number] Closed PCP Requested Referral 02/23/2025 02/23/2026 1 1 Source Comments (unrecognize d section and content) In the event this informatio n is protected by the Federal Confidentiality of Alcohol and Drug Abuse Patient Records regulations: The Federal rules restrict any use of the information to criminally investigate or prosecute any alcohol or drug abuse patient.[facility] the event this information is protected by the Federal Confidentiality of Alcohol and Drug Abuse Patient Records regulations: The Federal rules restrict any use of the information to criminally investigate or prosecute any alcohol or drug abuse patient.[facility] the event this information is protected by the Federal Confidentiality of Alcohol and Drug Abuse Patient Records regulations: The Federal rules restrict any use of the information to criminally investigate or prosecute any alcohol or drug abuse patient.[facility] the event this information is protected by the Federal Confidentiality of Alcohol and Drug Abuse Patient Records regulations: The Federal rules restrict any use of the information to criminally investigate or prosecute any alcohol or drug abuse patient.[facility] the event this information is protected by the Federal Confidentiality of Alcohol and Drug Abuse Patient Records regulations: The Federal rules restrict any use of the information to criminally investigate or prosecute any alcohol or drug abuse patient.[facility] the event this information is protected by the Federal Confidentiality of Alcohol and Drug Abuse Patient Records regulations: The Federal rules restrict any use of the information to criminally investigate or prosecute any alcohol or drug abuse patient.[facility] the event this information is protected by the Federal Confidentiality of Alcohol and Drug Abuse Patient Records regulations: The Federal rules restrict any use of the information to criminally investigate or prosecute any alcohol or drug abuse patient.[facility] the event this information is protected by the Federal Confidentiality of Alcohol and Drug Abuse Patient Records regulations: The Federal rules restrict any use of the information to criminally investigate or prosecute any alcohol or drug abuse patient.[facility] the event this information is protected by the Federal Confidentiality of Alcohol and Drug Abuse Patient Records regulations: The Federal rules restrict any use of the information to criminally investigate or prosecute any alcohol or drug abuse patient.[facility] the event this information is protected by the Federal Confidentiality of Alcohol and Drug Abuse Patient Records regulations: The Federal rules restrict any use of the information to criminally investigate or prosecute any alcohol or drug abuse patient.[facility] the event this information is protected by the Federal Confidentiality of Alcohol and Drug Abuse Patient Records regulations: The Federal rules restrict any use of the information to criminally investigate or prosecute any alcohol or drug abuse patient.[facility] the event this information is protected by the Federal Confidentiality of Alcohol and Drug Abuse Patient Records regulations: The Federal rules restrict any use of the information to criminally investigate or prosecute any alcohol or drug abuse patient.[facility] the event this information is protected by the Federal Confidentiality of Alcohol and Drug Abuse Patient Records regulations: The Federal rules restrict any use of the information to criminally investigate or prosecute any alcohol or drug abuse patient.[facility] the event this information is protected by the Federal Confidentiality of Alcohol and Drug Abuse Patient Records regulations: The Federal rules restrict any use of the information to criminally investigate or prosecute any alcohol or drug abuse patient.[facility] the event this information is protected by the Federal Confidentiality of Alcohol and Drug Abuse Patient Records regulations: The Federal rules restrict any use of the information to criminally investigate or prosecute any alcohol or drug abuse patient.[facility] the event this information is protected by the Federal Confidentiality of Alcohol and Drug Abuse Patient Records regulations: The Federal rules restrict any use of the information to criminally investigate or prosecute any alcohol or drug abuse patient.[facility] the event this information is protected by the Federal Confidentiality of Alcohol and Drug Abuse Patient Records regulations: The Federal rules restrict any use of the information to criminally investigate or prosecute any alcohol or drug abuse patient.[facility] the event this information is protected by the Federal Confidentiality of Alcohol and Drug Abuse Patient Records regulations: The Federal rules restrict any use of the information to criminally investigate or prosecute any alcohol or drug abuse patient.[facility] the event this information is protected by the Federal Confidentiality of Alcohol and Drug Abuse Patient Records regulations: The Federal rules restrict any use of the information to criminally investigate or prosecute any alcohol or drug abuse patient.[facility] the event this information is protected by the Federal Confidentiality of Alcohol and Drug Abuse Patient Records regulations: The Federal rules restrict any use of the information to criminally investigate or prosecute any alcohol or drug abuse patient.[facility], [place]onIn the event this information is protected by the Federal Confidentiality of Alcohol and Drug Abuse Patient Records regulations: The Federal rules restrict any use of the information to criminally investigate or prosecute any alcohol or drug abuse patient.[facility], [place]onIn the event this information is protected by the Federal Confidentiality of Alcohol and Drug Abuse Patient Records regulations: The Federal rules restrict any use of the information to criminally investigate or prosecute any alcohol or drug abuse patient.[facility], [place]onIn the event this information is protected by the Federal Confidentiality of Alcohol and Drug Abuse Patient Records regulations: The Federal rules restrict any use of the information to criminally investigate or prosecute any alcohol or drug abuse patient.[facility], [place]onIn the event this information is protected by the Federal Confidentiality of Alcohol and Drug Abuse Patient Records regulations: The Federal rules restrict any use of the information to criminally investigate or prosecute any alcohol or drug abuse patient.[facility], [place]In the event this information is protected by the Federal Confidentiality of Alcohol and Drug Abuse Patient Records regulations: The Federal rules restrict any use of the information to criminally investigate or prosecute any alcohol or drug abuse patient.[facility], [place]In the event this information is protected by the Federal Confidentiality of Alcohol and Drug Abuse Patient Records regulations: The Federal rules restrict any use of the information to criminally investigate or prosecute any alcohol or drug abuse patient.[facility], [place]In the event this information is protected by the Federal Confidentiality of Alcohol and Drug Abuse Patient Records regulations: The Federal rules restrict any use of the information to criminally investigate or prosecute any alcohol or drug abuse patient.[facility], [place]onIn the event this information is protected by the Federal Confidentiality of Alcohol and Drug Abuse Patient Records regulations: The Federal rules restrict any use of the information to criminally investigate or prosecute any alcohol or drug abuse patient.[facility], [place]onIn the event this information is protected by the Federal Confidentiality of Alcohol and Drug Abuse Patient Records regulations: The Federal rules restrict any use of the information to criminally investigate or prosecute any alcohol or drug abuse patient.[facility], [place]onIn the event this information is protected by the Federal Confidentiality of Alcohol and Drug Abuse Patient Records regulations: The Federal rules restrict any use of the information to criminally investigate or prosecute any alcohol or drug abuse patient.[facility], [place]onIn the event this information is protected by the Federal Confidentiality of Alcohol and Drug Abuse Patient Records regulations: The Federal rules restrict any use of the information to criminally investigate or prosecute any alcohol or drug abuse patient.[facility], [place]onIn the event this information is protected by the Federal Confidentiality of Alcohol and Drug Abuse Patient Records regulations: The Federal rules restrict any use of the information to criminally investigate or prosecute any alcohol or drug abuse patient.[facility], [place]onIn the event this information is protected by the Federal Confidentiality of Alcohol and Drug Abuse Patient Records regulations: The Federal rules restrict any use of the information to criminally investigate or prosecute any alcohol or drug abuse patient.[facility], [place]onIn the event this information is protected by the Federal Confidentiality of Alcohol and Drug Abuse Patient Records regulations: The Federal rules restrict any use of the information to criminally investigate or prosecute any alcohol or drug abuse patient.[facility], [place]onIn the event this information is protected by the Federal Confidentiality of Alcohol and Drug Abuse Patient Records regulations: The Federal rules restrict any use of the information to criminally investigate or prosecute any alcohol or drug abuse patient.[facility], [place]onIn the event this information is protected by the Federal Confidentiality of Alcohol and Drug Abuse Patient Records regulations: The Federal rules restrict any use of the information to criminally investigate or prosecute any alcohol or drug abuse patient.[facility], [place]onIn the event this information is protected by the Federal Confidentiality of Alcohol and Drug Abuse Patient Records regulations: The Federal rules restrict any use of the information to criminally investigate or prosecute any alcohol or drug abuse patient.[facility], [place]onIn the event this information is protected by the Federal Confidentiality of Alcohol and Drug Abuse Patient Records regulations: The Federal rules restrict any use of the information to criminally investigate or prosecute any alcohol or drug abuse patient.[facility], [place]onIn the event this information is protected by the Federal Confidentiality of Alcohol and Drug Abuse Patient Records regulations: The Federal rules restrict any use of the information to criminally investigate or prosecute any alcohol or drug abuse patient.[facility], [place]onIn the event this information is protected by the Federal Confidentiality of Alcohol and Drug Abuse Patient Records regulations: The Federal rules restrict any use of the information to criminally investigate or prosecute any alcohol or drug abuse patient.[facility], [place]onIn the event this information is protected by the Federal Confidentiality of Alcohol and Drug Abuse Patient Records regulations: The Federal rules restrict any use of the information to criminally investigate or prosecute any alcohol or drug abuse patient.[facility], [place]In the event this information is protected by the Federal Confidentiality of Alcohol and Drug Abuse Patient Records regulations: The Federal rules restrict any use of the information to criminally investigate or prosecute any alcohol or drug abuse patient.[facility], [place]onIn the event this information is protected by the Federal Confidentiality of Alcohol and Drug Abuse Patient Records regulations: The Federal rules restrict any use of the information to criminally investigate or prosecute any alcohol or drug abuse patient.[facility], [place]onIn the event this information is protected by the Federal Confidentiality of Alcohol and Drug Abuse Patient Records regulations: The Federal rules restrict any use of the information to criminally investigate or prosecute any alcohol or drug abuse patient.[facility], [place]onIn the event this information is protected by the Federal Confidentiality of Alcohol and Drug Abuse Patient Records regulations: The Federal rules restrict any use of the information to criminally investigate or prosecute any alcohol or drug abuse patient.[facility], [place]onIn the event this information is protected by the Federal Confidentiality of Alcohol and Drug Abuse Patient Records regulations: The Federal rules restrict any use of the information to criminally investigate or prosecute any alcohol or drug abuse patient.[facility], [place]onIn the event this information is protected by the Federal Confidentiality of Alcohol and Drug Abuse Patient Records regulations: The Federal rules restrict any use of the information to criminally investigate or prosecute any alcohol or drug abuse patient.[facility], [place]onIn the event this information is protected by the Federal Confidentiality of Alcohol and Drug Abuse Patient Records regulations: The Federal rules restrict any use of the information to criminally investigate or prosecute any alcohol or drug abuse patient.[facility], [place]onIn the event this information is protected by the Federal Confidentiality of Alcohol and Drug Abuse Patient Records regulations: The Federal rules restrict any use of the information to criminally investigate or prosecute any alcohol or drug abuse patient.[facility], [place]onIn the event this information is protected by the Federal Confidentiality of Alcohol and Drug Abuse Patient Records regulations: The Federal rules restrict any use of the information to criminally investigate or prosecute any alcohol or drug abuse patient.[facility], [place]onIn the event this information is protected by the Federal Confidentiality of Alcohol and Drug Abuse Patient Records regulations: The Federal rules restrict any use of the information to criminally investigate or prosecute any alcohol or drug abuse patient.[facility] [place] Care Teams (unrecognized sec tion and content) Team Status: Active Member Role Status Dates Dr. Deshawn Noel MD Primary Care Provider Active Team Status: Inactive Member Role Status Dates Dr. Deshawn Noel MD Primary Care Provider Active Dr. Jackson Mera MD Attending Provider, Referring P alex Active Team Status: Inactive Member Role Status Dates Dr. Deshawn Noel MD Primary Care Provider Active Jeny PISANO, PA Attending Provider, Referring Pr shanique Active Dr. Jackson Mera MD Other Provider Active Manager Cleaning Relationship Specialty Start Date End Date Deshawn Noel MD [address] [place] [address] PCP - General Family Practice 05/26/21 Jarvis Lake MD [address] [place] [address] Primary Staff Physician Cardiology 09/27/18 Manager Cleaning Relationship Specialty Start Date End Date Deshawn Noel MD [address] [place] [address] PCP - General Family Practice 05/26/21 Jarvis Lake MD [address] [place] [address] Primary Staff Physician Cardiology 09/27/18 Manager Cleaning Relationship Specialty Start Date End Date Deshawn Noel MD [address] [place] [address] PCP - General Family Practice 05/26/21 Jarvis Lake MD [address] [place] [address] Primary Staff Physician Cardiology 09/27/18 Manager Cleaning Relationship Specialty Start Date End Date Deshawn Noel MD [address] [place] [address] PCP - General Family Practice 05/26/21 Jarvis Lake MD [address] [place] [address] Primary Staff Physician Cardiology 09/27/18 Manager Cleaning Relationship Specialty Start Date End Date Deshawn Noel MD [address] [place] [address] PCP - General Family Practice 05/26/21 Jarvis Lake MD [address] [place] [address] Primary Staff Physician Cardiology 09/27/18 Manager Cleaning Relationship Specialty Start Date End Date Deshawn Noel MD [address] [place] [address] PCP - General Family Medicine 05/26/21 Jarvis Lake MD [address] [place] [address] Primary Staff Physician Cardiology 09/27/18 Manager Cleaning Relationship Specialty Start Date End Date Deshawn Noel MD [address] [place] [address] PCP - General Family Medicine 05/26/21 Jarvis Lake MD [address] [place] [address] Primary Staff Physician Cardiology 09/27/18 Manager Cleaning Relationship Specialty Start Date End Date Deshawn Noel MD [address] [place] [address] PCP - General Family Medicine 05/26/21 Jarvis Lake MD [address] [place] [address] Primary Staff Physician Cardiology 09/27/18 Team Status: Active Member Role Status Dates Dr. Deshawn Noel MD Primary Care Provider Active Dr. Amanuel Holder MD Attending Provider Active Dr. Jackson Mera MD Referring Provider Active Team Status: Inactive Member Role Status Dates Dr. Jackson Mera MD Attending Provider, Referring John johnson Active Dr. Deshawn Noel MD Primary Care Provider Active Manager Cleaning Relationship Specialty Start Date End Date Deshawn Noel MD [address] [place] [address] PCP - General Family Medicine 05/26/21 Jarvis Lake MD [address] [place] [address] Primary Staff Physician Cardiology 09/27/18 Manager Cleaning Relationship Specialty Start Date End Date Deshawn Noel MD [address] [place] [address] PCP - General Family Medicine 05/26/21 Jarvis Lake MD [address] [place] [address] Primary Staff Physician Cardiology 09/27/18 Manager Cleaning Relationship Specialty Start Date End Date Deshawn Noel MD [address] [place] [address] PCP - General Family Medicine 05/26/21 Jarvis Lake MD [address] [place] [address] Primary Staff Physician Cardiology 09/27/18 Manager Cleaning Relationship Specialty Start Date End Date Deshawn Noel MD [address] [place] [address] PCP - General Family Medicine 05/26/21 Jarvis Lake MD [address] [place] [address] Primary Staff Physician Cardiology 09/27/18 Manager Cleaning Relationship Specialty Start Date End Date Deshawn Noel MD [address] [place] [address] PCP - General Family Medicine 05/26/21 Jarvis Lake MD [address] [place] [address] Primary Staff Physician Cardiology 09/27/18 Team Status: Inactive Member Role Status Dates Dr. Deshawn Noel MD Primary Care Provider, Attend ing Provider Active Manager Cleaning Relationship Specialty Start Date End Date Deshawn Noel MD [address] [place] [address] PCP - General Family Medicine 05/26/21 Jarvis Lake MD [address] [place] [address] Primary Staff Physician Cardiology 09/27/18 Manager Cleaning Relationship Specialty Start Date End Date Deshawn Noel MD [address] [place] [address] PCP - General Family Medicine 05/26/21 Jarvis Lake MD [address] [place] [address] Primary Staff Physician Cardiology 09/27/18 Manager Cleaning Relationship Specialty Start Date End Date Deshawn Noel MD [address] [place] [address] PCP - General Family Medicine 05/26/21 Jarvis Lake MD [address] [place] [address] Primary Staff Physician Cardiology 09/27/18 Manager Cleaning Relationship Specialty Start Date End Date Deshawn Noel MD [address] [place] [address] PCP - General Family Medicine 05/26/21 Jarvis Lkae MD [address] [place], [place] [address] Primary Staff Physician Cardiology 09/27/18 Manager Cleaning Relationship Specialty Start Date End Date Deshawn Noel MD [address] [place] [address] PCP - General Family Medicine 05/26/21 Jarvis Lake MD [address] [place], [place] [address] Primary Staff Physician Cardiology 09/27/18 Manager Cleaning Relationship Specialty Start Date End Date Deshawn Noel MD [address] [place] [address] PCP - General Family Medicine 05/26/21 Jarvis Lake MD [address] [place], [place] [address] Primary Staff Physician Cardiology 09/27/18 Manager Cleaning Relationship Specialty Start Date End Date Deshawn Noel MD [address] [place] [address] PCP - General Family Medicine 05/26/21 Jarvis Lake MD [address] [place] [place], [place] [address] Primary Staff Physician Cardiology 09/27/18 Manager Cleaning Relationship Specialty Start Date End Date Deshawn Noel MD [address] [place] [address] PCP - General Family Medicine 05/26/21 Jarvis Lake MD [address] [place] [address] Primary Staff Physician Cardiology 09/27/18 Manager Cleaning Relationship Specialty Start Date End Date Deshawn Noel MD [address] [place] [address] PCP - General Family Medicine 05/26/21 Jarvis Lake MD [address] [place] [address] Primary Staff Physician Cardiology 09/27/18 Manager Cleaning Relationship Specialty Start Date End Date Deshawn Noel MD [address] [place] [address] PCP - General Family Medicine 05/26/21 Jarvis Lake MD [address] [place], [place] [address] Primary Staff Physician Cardiology 09/27/18 Manager Cleaning Relationship Specialty Start Date End Date Deshawn Noel MD [address] [place] [address] PCP - General Family Medicine 05/26/21 Jarvis Lake MD [address] [place] [address] Primary Staff Physician Cardiology 09/27/18 Manager Cleaning Relationship Specialty Start Date End Date Deshawn Noel MD [address] [place], [place] [address] PCP - General Family Medicine 05/26/21 Jarvis Lake MD [address] [place] [address] Primary Staff Physician Cardiology 09/27/18 Manager Cleaning Relationship Specialty Start Date End Date Luis Enrique Ambrose III, MD NO [employer]WARDING ADDRESS PCP - General 05/10/04 05/25/21 Jarvis Lake MD [address] [place] [address] Primary Staff Physician Cardiology 09/27/18 Manager Cleaning Relationship Specialty Start Date End Date Deshawn Noel MD [address] [place], [place] [address] PCP - General Family Medicine 05/26/21 Jarvis Lake MD [address] [place] [address] Primary Staff Physician Cardiology 09/27/18 Manager Cleaning Relationship Specialty Start Date End Date Deshawn Noel MD [address] [place], [place] [address] PCP - General Family Medicine 05/26/21 Jarvis Lake MD [address] [place] [address] Primary Staff Physician Cardiology 09/27/18 Shayy Singh APRN.CNP [address] [place], [place] [address] Hydraulic Chair Assembler Family Medicine 06/18/24 Ye Sharma APRN.BOARD WRITER [address] [place] [address] [facility] Manager Cleaning Relationship Specialty Start Date End Date Deshawn Noel MD [address] [place] [address] PCP - General Family Medicine 05/26/21 Jarvis Lake MD [address] [place] [address] Primary Staff Physician Cardiology 09/27/18 Shayy Singh APRN.BOARD WRITER [address] [place] [address] Hydraulic [facility] 06/18/24 Ye Sharma APRN.BOARD WRITER [address] [place] [address] Hydraulic Chair [facility] 06/27/24 Manager Cleaning Relationship Specialty Start Date End Date Deshawn Noel MD [address] [place] [address] PCP - General Family Medicine 05/26/21 Jarvis Lake MD [address] [place] [address] Primary Staff Physician Cardiology 09/27/18 Shayy Singh APRN.BOARD WRITER [address] [place] [address] Hydraulic Chair Assembler Family Medicine 06/18/24 Ye Sharma APRN.BOARD WRITER [address] [place] [address] Hydraulic Chair Assembler Family Medicine 06/27/24 Manager Cleaning Relationship Specialty Start Date End Date Deshawn Noel MD [address] [place] [address] PCP - General Family Medicine 05/26/21 Jarvis Lake MD [address] [place] [address] Primary Staff Physician Cardiology 09/27/18 Shayy Singh APRN.BOARD WRITER [address] [place] [address] Hydraulic Chair Assembler [facility] 06/18/24 Ye Sharma TENONER OPERATOR.BOARD WRITER [address] [place] [address] Hydraulic [facility] 06/27/24 Manager Cleaning Relationship Specialty Start Date End Date Deshawn Noel MD [address] [place] [address] PCP - General Family Medicine 05/26/21 Jarvis Lake MD [address] [place] [address] Primary Staff Physician Cardiology 09/27/18 Ye Sharma TENONER OPERATOR.BOARD WRITER [address] [place] [address] [facility] 06/27/24 Manager Cleaning Relationship Specialty Start Date End Date Deshawn Noel MD [address] [place] [address] PCP - General Family Medicine 05/26/21 Jarvis Lake MD [address] [place] [address] Primary Staff Physician Cardiology 09/27/18 Ye Sharma APRN.BOARD WRITER [address] [place] [address] Hydraulic Chair Assembler Family [facility] 06/27/24 Manager Cleaning Relationship Specialty Start Date End Date Deshawn Noel MD [address] [place] [address] PCP - General Family Medicine 05/26/21 Jarvis Lake MD [address] [place] [address] Primary Staff Physician Cardiology 09/27/18 Ye Sharma APRN.BOARD WRITER [address] [place] [address] [facility]ulic [facility] 06/27/24 Manager Cleaning Relationship Specialty Start Date End Date Deshawn Noel MD [address] [place] [address] PCP - General Family Medicine 05/26/21 Jarvis Lake MD [address] [place] [address] Primary Staff Physician Cardiology 09/27/18 Ye Sharma APRN.BOARD WRITER [address] [place] [address] [facility] 06/27/24 Manager Cleaning Relationship Specialty Start Date End Date Deshawn Noel MD [address] [place] [address] PCP - General Family Medicine 05/26/21 Jarvis Lake MD [address] [place] [address] Primary Staff Physician Cardiology 09/27/18 Ye Sharma APRN.BOARD WRITER [address] [place] [address] Hydraulic Chair Assembler [facility] 06/27/24 Manager Cleaning Relationship Specialty Start Date End Date Deshawn Noel MD [address] [place] [address] PCP - General Family Medicine 05/26/21 Jarvis Lake MD [address] [place] [address] Primary Staff Physician Cardiology 09/27/18 Ye Sharma APRN.BOARD WRITER [address] [place] [address] Hydraulic Chair Assembler Family [facility] 06/27/24 Manager Cleaning Relationship Specialty Start Date End Date Deshawn Noel MD [address] [place] [address] PCP - General Family Medicine 05/26/21 Jarvis Lake MD [address] [place], [place] [address] Primary Staff Physician Cardiology 09/27/18 Ye Sharma APRN.BOARD WRITER [address] [place] [address] Hydraulic Chair Assembler Family [facility] 06/27/24 Manager Cleaning Relationship Specialty Start Date End Date Deshawn Noel MD [address] [place], [place] [address] PCP - General Family Medicine 05/26/21 Jarvis Laek MD [address] [place], [place] [address] Primary Staff Physician Cardiology 09/27/18 Ye Shamra APRN.CNP [address] [place], [place] [address] Hydraulic Chair Assembler Family [facility] 06/27/24 Goals (unrecognized section and content) Goals may be documented in a n alternate sectionGoals may be documented in an alternate sectionGoals may be documented in an alternate sectionGoals may be documented in an alternate sectionGoals may be documented in an alternate section (unrecognized sect ion and content) No Status Records FoundNo Status Records FoundNo Status Records FoundNo Status Records Found INFORMATION SOURCE (unrecogn ized section and content) DATE CREATED AUTHOR 01/12/2023 [facility] DATE CREATED AUTHOR AUTHOR'S ORGANIZ ATION 12/17/[address] [facility] DATE CREATED AUTHOR AUTHOR'S ORGANIZ ATION 06/24/2024 [facility] DATE CREATED AUTHOR AUTHOR'S ORGANIZ ATION 03/22/2025 [facility] FOR RECORDS PERTAINING TO PATIENTS WHO ARE OR HAVE BEEN ENROLLED IN A CHEMICAL DEPENDENCY/SUBSTANCEABUSE PROGRAM, SOME INFORMATION MAY BE OMITTED. This clinical summary was aggregated from multiple sources. Caution should be exercised in using it in the provision of clinical care. This summary normalizes information from multiple sources, and as a consequence, information in this document may materially change the coding, format and clinical context of patient data. In addition, data may be omitted in some cases. CLINICAL DECISIONS SHOULD BE BASED ON THE PRIMARY CLINICAL RECORDS. [email or web address] provides no warranty or guarantee of the accuracy or completeness of information in this document.
--- NOTE | 2025-05-31 20:28 | OP.PCM_ITS ---
Operative Report (Standard) Operative Information Date of Procedure: 05/31/25 Pre-Operative Diagnosis: acute cholecystitis Post-Operative Diagnosis: Same Surgery/Procedure Performed: robotic cholecystectomy with ICG metaphysicist: Yes Tentering Machine Off Bearer: Mirta Boogie Tasks completed by assistant general manager: Opening & closing Type of Anesthesia: General/Supplemental RN Documented Start/Stop Times: Operation Date: 05/31/25 16:20 Case Time Into Pre-Op 05/31/25 14:19 Anesthesia Start 05/31/25 15:15 Into Room 05/31/25 15:15 Procedure Start 05/31/25 15:39 Procedure End 05/31/25 17:09 Anesthesia End 05/31/25 17:14 Out of Room 05/31/25 17:14 Into Recovery 05/31/25 17:15 Out of Recovery 05/31/25 17:38 Procedure Start Time: 15:39 Procedure Stop Time: 17:09 Select all DRAINS/GRAFTS/IMPLANTS that apply: None Special Medications: zosyn 3.375 g IV x1 Estimated Blood Loss: <10 cc Specimen collected: Yes Description of specimen(s) removed: gallbladder Description of surgery: Indications: this is a 69 year-old male who developed abdominal pain/nausea/vomiting and on workup was found to have acute calculus cholecy stitis with a normal common bile duct. Robotic/laparoscopic cholecystectomy was elected. Description procedure: The patient was placed on operating table in supine position. A timeout was completed verifying correct patient, procedure, site, position and special equipment prior to beginning procedure. General Anesthesia was induced. The abdomen was prepped and draped in usual sterile fashion. An incision was made in the natural skin line below the umbilicus. The fascia was elevated and incised. The peritoneum was elevated and incised. Entry into the peritoneum was confirmed visually and no bowel was noted in the vicinity of the incision. Valle trocar was placed. The abdomen was insufflated with carbon dioxide to a pressure of 12-15 mmHg. Patient tolerated insufflation well. The laparoscope was then inserted and abdomen inspected. No injuries from initial trocar placement were noted. Additional trochars were then inserted in the following locations 8 mm trocar left upper quadrant and 2 more 8 mm trochars in right lower quadrant and left lower quadrant. The abdomen was inspected no abnormalities were found. The table is placed in reverse Trendelenburg position with the right side up. Robot was docked. Gallbladder was distended and tense. The adhesions between the gallbladder and omentum were taken down carefully. The dome of the gallbladder was grasped with atraumatic grasper passed through the lateral port and retracted over the dome of the liver. The gallbladder was decompressed with hook/suction to allow better visualization. Infundibulum was then grasped with atraumatic grasper through the midclavicular port and retracted to the right lower quadrant. The peritoneum overlying the gallbladder infundibulum was then incised and while dissecting the cystic duct there was a small enterotomy at the neck- stones and bile was suctioned. ICG was used-gallbladder did not fill due to acute cholecystitis. The cystic duct and artery were then doubly clipped and divided close to the gallbladder. The gallbladder then dissected from its peritoneal attachments by electrocautery. The gallbladder fossa was irrigated with saline and hemostasis obtained. There is no evidence of bleeding from the gallbladder fossa or cystic artery leakage of bile from the cystic duct stump. Hemostasis was checked and the gallbladder was removed using the endoscopic retrieval bag through the umbilical port. Robot was undocked. the gallbladder is passed off table as specimen. Secondary trochars removed under direct vision. No bleeding was noted the troc ar sites. The laparoscope was withdrawn and umbilical trocar removed. The abdomen was allowed to collapse. The fascia of the 12 mm trocar was closed with a [id number] 0 Vicryl suture. The skin was closed with sutures of 4-0 Monocryl and Steri-Strips. The patient was extubated. The patient tolerated procedure well and was taken to the postanesthesia care unit in stable condition. Surgical Findings: see op note Complications Complications: No
[2025-05-31] MEDS: CARBOXYMETHYLCELLULOSE SODIUM 1 DRP DROPS OPHTHALMIC (21:17)
[2025-06-01 01:48] VITALS: BP 113/61; PULSE 56; RESP 18; TEMP 36.6; O2SAT 95
[2025-06-01] MEDS: 0.9% Normal Saline (1000mL) 1,000 ML 100 ML IV (04:32)
[2025-06-01 05:48] VITALS: BP 118/70; PULSE 52; RESP 16; TEMP 36.7; O2SAT 94
[2025-06-01] MEDS: Piperacil/Tazobactam 3.375 GM in 0.9% Normal Saline (50mL MB+) 50 ML IV (06:08)
[2025-06-01 07:40] LABS: Hematocrit 38.7 % (40-54); Hemoglobin 12.7 g/dL (13.0-16.5); Immature Granulocytes Count 0.060 X10^3/uL (0.0-0.0); Mean Corp Hgb Conc 32.8 g/dL (32-36); Mean Corpuscular Volume 94.6 fL (80-94); Mean Platelet Vol. 11.0 fl (6.2-12.0); NRBC Flagged by Analyzer 0 % (0-5); Platelet Count 189 K/mm3 (150-450); RBC Distribution Width CV 13.1 % (11.6-14.6); RBC Distribution Width SD 44.9 fl (35.1-43.9); Red Blood Count 4.09 M/mm3 (4.6-6.2); White Blood Count 10.7 K/mm3 (4.4-11.0)
--- NOTE | 2025-06-01 07:56 | PCM.PN.SRG ---
Subjective Subjective The patient tolerated p.o. denies any abdominal pain present for mild at the incisions. Objective Data Objective Data Vital Signs: Vital Signs Temp Pulse Resp BP Pulse Ox O2 Del Method O2 Flow Rate 98.1 F 52 L 16 118/70 94 Room Air 8 06/01/25 05:48 06/01/25 05:48 06/01/25 05:48 06/01/25 05:48 06/01/25 05:48 06/01/25 05:48 05/31/25 17:21 Oxygen Flow Rate (L/min) 8 Oxygen Delivery Method Room Air Weight: 321 lb 13.998 oz Body Mass Index (BMI) 43.6 Intake & Output: Intake and Output for Last 24 Hours 05/30/25 05/31/25 06/01/25 23:59 23:59 23:59 Intake Total 1102.5 / 1102.5 1050 / 1050 Output Total Balance 1092.5 / 1092.5 1050 / 1050 Lab / Micro Data 06/01/25 06:45 06/01/25 06:45 Labs: Laboratory Results - last 24 hr 05/31/25 09:55: WBC 15.1 H, RBC 4.79, Hgb 14.8, Hct 44.4, MCV 92.7, MCH 30.9, MCHC 33.3, RDW Std Deviation 43.0, RDW Coeff of Wei 12.7, Plt Count 217, MPV 10.6, Immature Gran % (Auto) 0.400, Neut % (Auto) 88.9 H, Lymph % (Auto) 5.6 L, [place] % (Auto) 4.8, Eos % (Auto) 0.1, Baso % (Auto) 0.2, Absolute Neuts (auto) 13.4 H, Absolute Lymphs (auto) 0.84, Nucleated RBC % 0, PT 13.9, INR 1.1, APTT 25.8, Sodium 140, Potassium 3.8, Chloride 103, Carbon Dioxide 22.6, Anion Gap 14, BUN 24 H, Creatinine 1.52 H, Estim Creat Clear Calc 69.05, Est GFR (MDRD) Non-Af 50 L, BUN/Creatinine Ratio 15.9, Glucose 172 H, Calcium 9.6, Total Bilirubin 1.23, AST 33, ALT 39, Alkaline Phosphatase 69, Troponin T High Sens 37 H, NT pro BNP II 620, Total Protein 7.6, Albumin 4.6, Globulin 3.0, Albumin/Globulin Ratio 1.6, Lipase 34 05/31/25 11:05: Urine Color Yellow, Urine Clarity Clear, Urine pH 6.0, Ur Specific [place] 1.010, Urine Protein 15 H, Urine Glucose (UA) Normal, Urine Ketones Negative, Urine Occult Blood 10 H, Urine Nitrite Negative, Urine Bilirubin Negative, Urine Urobilinogen Normal, Ur Leukocyte Esterase Negative, Urine RBC 0 SEEN, Urine WBC 0 SEEN, Ur Squamous Epith Cells 0 SEEN, Urine Bacteria 0 SEEN, Urine Mucus 0 SEEN 05/31/25 12:30: Troponin T Hi Sens 2 Hr 38 H 06/01/25 06:45: WBC 10.7, RBC 4.09 L, Hgb 12.7 L, Hct 38.7 L, MCV 94.6 H, MCH 31.1, MCHC 32.8, RDW Std Deviation 44.9 H, RDW Coeff of Wei 13.1, Plt Count 189, MPV 11.0, Immature Gran % (Auto) 0.600, Neut % (Auto) 77.2 H, Lymph % (Auto) 12.0 L, [place] % (Auto) 10.1 H, Eos % (Auto) 0.0, Baso % (Auto) 0.1, Absolute Neuts (auto) 8.3 H, Absolute Lymphs (auto) 1.28, Nucleated RBC % 0 Radiography Diagnostic Testing: Radiology Impression Chest/Abdomen/Pelvis CTA 05/31/25 10:11 IMPRESSION: Unremarkable CTA of the chest abdomen and pelvis without dissection. Acute cholecystitis. Perinephric fat stranding and bladder wall thickening concerning for intact infarction. Sigmoid colon diverticulosis with no evidence of acute diverticulitis. Reading Location: [id number] Gallbladder Ultrasound 05/31/25 11:40 IMPRESSION: Fatty infiltration of the liver. Hepatomegaly. Distended gallbladder with a gallstone in the neck of the gallbladder. The gallbladder wall is not thickened. No pericholecystic fluid is seen. Reading Location: [id number] Physical Exam Resp normal respiratory effort Cardio regular rate GI GI Narrative: Abdomen: Soft, nondistended, tender near incision's dressed clean dry and intact, no peritoneal signs Assessment & Plan Assessment/Plan (1) S/P laparoscopic cholecystectomy: PLAN: Plan Patient tolerating diet denies any abdominal pain. Patient's total bili and direct bili slightly elevated others are normal. Will plan to recheck as an outpatient on Wednesday. Follow-up in office in 1 to 2 weeks. Clau Marin M.D. Pager: [phone] [facility] [address] [place] [address], [facility], [address] [place] [address] Office: [phone]
--- NOTE | 2025-06-01 07:57 | DCINST_ITS ---
Discharge Instructions Diet Discharge Diet: Light diet - advance as tolerated Activity Discharge Activity: May Not Drive (while taking narcotic pain medications.) May shower in (days): 1 Lifting Restrictions: no lifting >20 lbs x 2 wks, no strenuous exercise for 4 wks Dressing / Incision Call your doctor if your incision/area has: Continuous Slow Oozing, Sudden Increased Bleeding, Increased Pain/ Swelling, Increased Redness, Foul Smelling Discharge and Swelling at the incision site Call your doctor if you observe: Fever of 101 or Higher Remove Dressing in: 2 days Cleanse incision/area with: Soap & Water Additional Dressing/Incision Instructions:: Steri-Strips will fall off in 7 to 10 days, if they do not fall off okay to remove after 10 days. Follow Up Care Please Follow Up With: Clau Marin MD When: Call the office for a follow-up appointment 2 weeks; after 5 PM and on the weekends call [phone] with any concerns. Test Results: Test results from this visit will be discussed in further detail at your follow- up appointment, if applicable. Discharge Plan Admission Admit Date/Time: 05/31/25 13:50 Attending Provider: Clau Marin Primary Care Provider: Niles Noel Consulting Providers: Chaitanya Rojas Discharge Orders/Prescriptions Prescriptions: New oxycodone 5 mg capsule 5 mg PO Q6H PRN (Reason: pain) 2 Days Qty: 5 0RF Continued hydrochlorothiazide 12.5 mg capsule 12.5 mg PO DAILY losartan 100 mg tablet 100 mg PO DAILY amlodipine 5 mg tablet 5 mg PO DAILY atorvastatin 20 mg tablet 20 mg PO QHS Held aspirin 81 MG tablet,chewable 162 mg PO DAILY@0800 Hold Instructions: Resume on 06/02/25. Referrals / Follow Up: Niles Noel MD [Primary Care Provider, Family Practice] Disposition Disposition (needs filled in before D/C Order can be placed): Home, Self Care
[2025-06-01 08:06] LABS: AST(SGOT) 31 U/L (<=37); Alanine Aminotransfer ALT/SGPT 36 U/L (<=46); Albumin, Serum 3.8 g/dL (3.4-4.8); Alkaline Phosphatase 51 U/L (40-129); Anion Gap 11 (5-15); BUN 23 mg/dL (4-19); BUN/Creat Ratio 16.8 RATIO (10-20); Bilirubin, Direct 0.52 mg/dL (0.00-0.30); Calcium,Total 8.4 mg/dL (7.6-11.0); Carbon Dioxide 22.0 mmol/L (21.0-32.0); Chloride 108 mmol/L (98-108); Estimated Creatinine Clearance 77.75 ml/min (50-250); Globulin 2.5 g/dL (2.2-4.2); Glucose 142 mg/dL (70-99); Potassium 3.8 mmol/L (3.3-5.1)
--- NOTE | 2025-06-01 08:48 | CASEMGMT ---
[facility] NOTE:? Dx:?Acute Cholecystitis Strata:?1 6 click:?21 No therapy ordered.? No CM consult ordered.? Pt has a PCP listed in [facility]. Medical record reviewed and patient evaluated for identification of discharge planning needs. Patient does not currently demonstrate a need for discharge planning by MAR[facility] ARITA. CM will continue to be available for any discharge needs that may arise, and intervene as indicated. Dion CORTES RN, CM
--- NOTE | 2025-06-01 09:42 | PHA.DC_ITS ---
Pharmacy [facility] has performed discharge medication counseling for this patient. The patient was counseled on the following discharge medications and changes in medications for homegoing review. - Oxycodone 5 mg capsule The Reason for Use, instructions for use, and potential side effects were reviewed for all new medications. The patient's questions regarding all of their medications were answered. The patient was able to verbally demonstrate an understanding of their discharge medications. Medications at Discharge Home Medications aspirin 81 mg chewable tablet 162 mg PO DAILY@0800 clotting 01/10/18 Held on 06/01/25. Instructions: Resume on 06/02/25. amlodipine 5 mg tablet 5 mg PO DAILY heart 05/12/24 atorvastatin 20 mg tablet 20 mg PO QHS cholesterol 05/12/24 losartan 100 mg tablet 100 mg PO DAILY heart 05/12/24 hydrochlorothiazide 12.5 mg capsule 12.5 mg PO DAILY bp 05/31/25 oxycodone 5 mg capsule 5 mg PO Q6H PRN pain 2 days #5 caps 06/01/25
[2025-06-01 09:56] VITALS: BP 107/55; PULSE 63; RESP 18; TEMP 36.8; O2SAT 96
== END 2025-06-01 11:18 | disposition home or self-care (01) | DRG 418 ==
LOC: ED 13:40 → MS3 13:53
PROVIDERS: Admitting Provider Surgery; Emergency Provider Surgery; PCP Family Medicine; Visit Provider Surgery
PROC: 0FT44ZZ Resection of Gallbladder, Percutaneous Endoscopic Approach (ICD-10-PCS; CPT 47562; principal; 2025-05-31 16:00)
DX: K80.12 Calculus of gallbladder with acute and chronic cholecystitis without obstruction (principal); Z68.41 Body mass index [BMI] 40.0-44.9, adult; E66.01 Morbid (severe) obesity due to excess calories; I10 Essential (primary) hypertension; I35.0 Nonrheumatic aortic (valve) stenosis; E78.5 Hyperlipidemia, unspecified; Z79.899 Other long term (current) drug therapy
CPT/HCPCS: 36415; 71275; 74174; 76705; 80048; 80053; 80076; 81001; 83690; 83880; 84484; 85025; 85610; 85730; 88304; 93005; 99285; Q9967; A4216; J2405

== ENCOUNTER → 2025-06-04 | Outpatient (CLI) | payer MEDICARE, BC, SELFPAY ==
[2025-06-04 15:23] LABS: AST(SGOT) 26 U/L (<=37); Alanine Aminotransfer ALT/SGPT 35 U/L (<=46); Albumin, Serum 4.0 g/dL (3.4-4.8); Alkaline Phosphatase 67 U/L (40-129); Bilirubin, Direct 0.47 mg/dL (0.00-0.30); Globulin 2.5 g/dL (2.2-4.2)
== END | disposition home or self-care (01) ==
LOC: LAB 13:23
PROVIDERS: PCP Family Medicine; Referring Provider Surgery; Visit Provider Surgery
DX: K81.0 Acute cholecystitis (principal)
CPT/HCPCS: 36415; 80076